=== PATIENT | female | born 1935 | race Caucasian/White ===

== ENCOUNTER → 2017-07-11 11:53 | Outpatient (CLI) | payer MEDICARE, OTHER, SELFPAY ==
[2017-07-11 12:37] LABS: Absolute Lymphocyte Count 1.38 X10^3/ul (0.83-4.51); Basophil# 0.02 X10^3/uL; Basophil% 0.5 % (0-1); Eosinophils% 2.5 % (0-5); Hematocrit 40.2 % (37-47); Hemoglobin 13.2 g/dl (12.0-15.0); Lymphocyte # 1.38 X10^3/ul (4.0); Lymphocyte % 34.8 % (19-41); Mean Corp Hgb Conc 32.8 g/gl (32-36); Mean Corpuscular Hgb 32.8 pg (27.0-32.0); Mean Corpuscular Volume 99.8 fL (81-99); Mean Platelet Vol. 11.5 fl (6.2-12.0); Monocyte# 0.44 X10^3/uL; Monocyte% 11.1 % (0-10); Neutrophil # 2.02 X10^3/uL (2.7-7.7); Neutrophil % 50.8 % (47-70); Platelet Count 236 K/mm3 (150-450); RBC Distribution Width CV 13.3 % (11.6-14.6); RBC Distribution Width SD 48.4 fl (35.1-43.9); Red Blood Count 4.03 M/mm3 (4.2-5.4)
[2017-07-11 12:38] LABS: POSITIVE COUNT NO; POSITIVE DIFFERENTIAL NO; POSITIVE MORPHOLOGY NO
[2017-07-11 13:00] LABS: ALB/GLOB Ratio 0.8 RATIO (0.9-2.4); AST(SGOT) 26 U/L (15-37); Alanine Aminotransfer ALT/SGPT 29 U/L (13-56); Albumin, Serum 3.3 g/dL (3.2-5.0); Alkaline Phosphatase 58 U/L (45-117); Anion Gap 7 (5-15); BUN 17 mg/dL (7-18); BUN/Creat Ratio 20.7 RATIO (10-20); Calcium,Total 9.1 mg/dL (8.5-10.1); Chloride 106 mmol/L (98-107); Creatinine, Serum 0.82 mg/dL (0.55-1.02); EST Glomerular Filtration Rate 71 mL/min (>60); Est Glom Filt Rate - Afr Amer 85 mL/min (>60); Glucose 78 mg/dL (74-106); Potassium 4.4 mmol/L (3.5-5.1); Protein, Total 7.3 g/dL (6.4-8.2); Sodium Level 141 mmol/L (136-145); Thyroid Stim Hormone (TSH) 2.87 uIU/mL (0.358-3.74)
[2017-07-11 13:10] LABS: Vitamin D,25 Hydroxy 71.4 ng/mL (29.95-100.01)
== END ==
PROVIDERS: Family Provider Family Medicine Geriatric Medicine; PCP Family Medicine Geriatric Medicine; Visit Provider Family Medicine Geriatric Medicine
DX: E55.9 Vitamin D deficiency, unspecified (principal); R53.83 Other fatigue
CPT/HCPCS: 36415; 80053; 82306; 84443; 85025

== ENCOUNTER 2017-07-13 16:02 | Emergency (ER) | payer MEDICARE, OTHER, SELFPAY ==
[2017-07-13 16:04] VITALS: BP 159/92; PULSE 93; RESP 16; TEMP 36.8; O2SAT 97; BMI 32.7
--- NOTE | 2017-07-13 16:43 | RAD_ITS ---
STUDY: X-RAY - LEFT FEMUR REASON FOR STUDY: Female, 82 years old. FALL TECHNIQUE: Radiological exam, femur, minimum 2 views COMPARISON: None. FINDINGS: Normal visualized femur. Normal visualized soft tissue structure. RAD/Femur Min 2 Views IMPRESSION: Normal x-ray examination of the femur. Electronically Signed: Bernard Lea MD at 17:43 EDT , Service support ,
--- NOTE | 2017-07-13 16:45 | ED.VISSUMM ---
- ER Visit Summary Date of Service: 07/13/17 Chief Complaint: Fall History of Present Illness: The patient is a 82 F who had a near fall today. Patient states that her foot slid on a wet floor. She states that 1 foot slid forward and one back. She did not fall completely to the floor. She is complaining of pain to the posterior left thigh. She was able to ambulate with 2 person assist. She did take 1 tab of ibuprofen prior to arrival. 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 She did not strike her head. She states her INR was 1.9 yesterday. Physical Examination: Vital signs are unremarkable. Patient sitting in a wheelchair. She is in no acute distress. Head neck examination reveals no sign of trauma. Heart is regular rate and rhythm. Lung sounds are clear. Abdomen is soft nontender. Lower external examination reveals mild tenderness of the posterior left calf. There is no ecchymosis at this time. She has strong distal pulses. She does have increased pain to the left posterior thigh when she extends her left knee. Test Results: Left femur x-rays are unremarkable. Emergency Department Course and Treatment: Patient's leg was placed in an Jaswant wrap. She is able to get up and ambulate with her walker and feels improved. She declined anything further for pain at this time. Treatment Plan: Patient's daughter has a walker that the patient can use at home. Disposition: Discharge Impression: Left thigh muscle strain This note was generated with [email or web address] dictation software. It may contain incorrect words, spelling, and punctuation that were not noted in review of the chart prior to signing ED Disposition - Plan for ED Patient: Chief Complaint: Fall Referrals: Edgar Crooks Chi, MD [Primary Care Provider] -
--- NOTE | 2017-07-13 17:47 | ED.RN ---
CLAUDIA WRAP APPLIED TO RT UPPER THIGH PER MD.
--- NOTE | 2017-07-13 17:52 | ED.DEP ---
ED Disposition - Plan for ED Patient: Disposition: Home or Assisted Living Chief Complaint: Fall Instructions: ED Strain Muscle Ext Referrals: Edgar Crooks Chi, MD [Primary Care Provider] - 1-2 Weeks
[2017-07-13 17:57] VITALS: BP 180/94; PULSE 77; RESP 16; O2SAT 100
== END 2017-07-13 17:58 | disposition home or self-care (01) ==
PROVIDERS: Emergency Provider Emergency Medicine; Family Provider Family Medicine Geriatric Medicine; PCP Family Medicine Geriatric Medicine
DX: S76.912A Strain of unspecified muscles, fascia and tendons at thigh level, left thigh, initial encounter (principal); W18.49XA Other slipping, tripping and stumbling without falling, initial encounter; Y93.9 Activity, unspecified; Y92.9 Unspecified place or not applicable; I25.10 Atherosclerotic heart disease of native coronary artery without angina pectoris; I35.0 Nonrheumatic aortic (valve) stenosis; Z86.718 Personal history of other venous thrombosis and embolism; Z86.39 Personal history of other endocrine, nutritional and metabolic disease; Z95.5 Presence of coronary angioplasty implant and graft; Z79.01 Long term (current) use of anticoagulants; Z79.82 Long term (current) use of aspirin; Z79.899 Other long term (current) drug therapy
CPT/HCPCS: 73552; 99282

== ENCOUNTER 2017-07-19 11:42 | Emergency (ER) | payer MEDICARE, OTHER, SELFPAY ==
[2017-07-19 11:43] VITALS: BP 146/85; PULSE 89; RESP 16; TEMP 36.6; O2SAT 100; BMI 32.0
--- NOTE | 2017-07-19 12:31 | NURSING ---
NO LW OR POA
--- NOTE | 2017-07-19 12:39 | VDLE_ITS ---
Reason For Study: LEG PAIN Procedure LEFT Exam performed portable in ED. GSV is normal. A preliminary report was called and/or faxed CFV is compressible, spontaneous, phasic, to ED. competent, and demonstrates normal augmentation. FV is compressible, spontaneous, phasic, competent and demonstrates normal augmentation. POP V is compressible, spontaneous, phasic, competent and demonstrates normal augmentation. T/P Trunk is compressible. PTV is compressible. LT PerV is compressible. Interpretation Summary Deep veins of the left lower extremity are patent and compressible segmentally. There is no evidence of left lower extremity deep vein thrombosis. Valvular competence appears intact within the proximal deep venous system on the left . The left greater saphenous vein appears patent and compressible segmentally. Ordering Physician: Michael Pendleton Referring Physician: SHAWNA COOK CHI Performed By: Kenzie Ledesma, KUSUM, RVT
[2017-07-19 13:21] LABS: Absolute Neutrophil Count 2.2 X10^3/uL (2.0-7.7); Basophil# 0.02 X10^3/uL; Basophil% 0.5 % (0-1); Eosinophil# 0.08 X10^3/uL; Hematocrit 33.3 % (37-47); Hemoglobin 10.8 g/dl (12.0-15.0); Lymphocyte % 33.1 % (19-41); Mean Corp Hgb Conc 32.4 g/gl (32-36); Mean Corpuscular Volume 98.5 fL (81-99); Mean Platelet Vol. 10.2 fl (6.2-12.0); Monocyte# 0.37 X10^3/uL; Monocyte% 9.4 % (0-10); Neutrophil # 2.15 X10^3/uL (2.7-7.7); Neutrophil % 54.7 % (47-70); Platelet Count 258 K/mm3 (150-450); RBC Distribution Width CV 13.4 % (11.6-14.6); RBC Distribution Width SD 48.1 fl (35.1-43.9); Red Blood Count 3.38 M/mm3 (4.2-5.4); White Blood Count 3.9 K/mm3 (4.4-11.0)
[2017-07-19 13:22] LABS: POSITIVE COUNT NO; POSITIVE DIFFERENTIAL NO; POSITIVE MORPHOLOGY NO
[2017-07-19 13:28] LABS: Anion Gap 8 (5-15); BUN 18 mg/dL (7-18); BUN/Creat Ratio 24.8 RATIO (10-20); Calcium,Total 8.9 mg/dL (8.5-10.1); Chloride 104 mmol/L (98-107); Creatinine, Serum 0.73 mg/dL (0.55-1.02); EST Glomerular Filtration Rate 82 mL/min (>60); Est Glom Filt Rate - Afr Amer 99 mL/min (>60); Glucose 87 mg/dL (74-106); Potassium 4.4 mmol/L (3.5-5.1); Sodium Level 139 mmol/L (136-145)
[2017-07-19 13:30] LABS: International Normalized Ratio 2.3; Prothrombin Time (Protime)PT. 25.5 SECONDS (11.7-14.9)
--- NOTE | 2017-07-19 14:30 | ED.DCSUM_ITS ---
- ER Visit Summary Date of Service: 07/19/17 Chief Complaint: Left leg pain History of Present Illness: The patient is a 82 F presents with left leg pain. She fell 5-6 days ago. She slipped. She was seen in the emergency department at that time. X-rays were negative. Since last night she has had some increased pain. Since the fall she has noticed increasing bruising to her left thigh and leg. She denies fever chest pain shortness of breath lightheadedness. Review of systems otherwise negative. She is concerned for possible DVT. She is anticoagulated. Physical Examination: Afebrile vitals are unremarkable heart rate 89 blood pressure 146/85 Heart regular rate and rhythm Lungs are clear Abdomen soft Patient has ecchymosis diffusely of the left leg including the thigh and proximal calf the compartments are soft and only mildly tender she has an easily palpable 2+ dorsalis pedis pulse with normal sensation and brisk capillary refill she does not have edema or soft tissue swelling Test Results: Laboratory studies notable for INR 2.3 hemoglobin is 10.8 which is decreased from 13 on prior labs. Venous duplex is negative for DVT. Emergency Department Course and Treatment: I explained to the patient my clinical suspicion for DVT is low given that she has a therapeutic INR but she remained concerned so we did obtain venous duplex which was negative. Her hemoglobin has decreased from 13 down to 10.8. However heart rate and blood pressure are normal. She only has mild tenderness. Her compartments are soft. I do not believe she is actively bleeding at this time. I spoke to Dr. Crooks her primary care physician to arrange for outpatient follow-up. He will see her tomorrow and follow-up on repeat laboratory studies. Patient was given specific signs and symptoms to monitor for, conditions under which to return to the emergency department. All questions answered bedside and patient agreeable to the plan. Patient discharged. Treatment Plan: [] Disposition: Discharge Impression: Left leg contusion Anemia This note was generated with [employer] dictation software. It may contain incorrect words, spelling, and punctuation that were not noted in review of the chart prior to signing ED Disposition - Plan for ED Patient: Chief Complaint: Fall Referrals: Edgar Crooks Chi, MD [Primary Care Provider] -
--- NOTE | 2017-07-19 14:35 | ED.DEP ---
ED Disposition - Plan for ED Patient: Chief Complaint: Fall Instructions: ED Contusion Lower Ext, ED Anemia Type Not Specified Referrals: Edgar Crooks Chi, MD [Primary Care Provider] - Additional Instructions: Call Dr. Crooks to be seen tomorrow.
[2017-07-19 14:45] VITALS: BP 148/85; PULSE 81; RESP 16; O2SAT 97
== END 2017-07-19 14:46 | disposition home or self-care (01) ==
PROVIDERS: Emergency Provider Emergency Medicine; Family Provider Family Medicine Geriatric Medicine; PCP Family Medicine Geriatric Medicine
DX: S80.12XA Contusion of left lower leg, initial encounter (principal); D64.9 Anemia, unspecified; W01.0XXA Fall on same level from slipping, tripping and stumbling without subsequent striking against object, initial encounter; Y93.9 Activity, unspecified; Y92.9 Unspecified place or not applicable; I25.10 Atherosclerotic heart disease of native coronary artery without angina pectoris; I10 Essential (primary) hypertension; Z95.5 Presence of coronary angioplasty implant and graft; Z79.01 Long term (current) use of anticoagulants; Z79.82 Long term (current) use of aspirin; Z79.899 Other long term (current) drug therapy
CPT/HCPCS: 80048; 85025; 85610; 93971; 99283; A4216

== ENCOUNTER → 2017-07-27 09:51 | Outpatient (CLI) | payer MEDICARE, OTHER, SELFPAY ==
[2017-07-27 12:41] LABS: Hematocrit 33.5 % (37-47); Hemoglobin 11.1 g/dl (12.0-15.0)
== END ==
PROVIDERS: Family Provider Family Medicine Geriatric Medicine; PCP Family Medicine Geriatric Medicine; Visit Provider Family Medicine Geriatric Medicine
DX: D64.9 Anemia, unspecified (principal)
CPT/HCPCS: 36415; 85014; 85018

== ENCOUNTER 2017-12-12 19:00 | Observation (INO) | payer MEDICARE, OTHER, SELFPAY ==
[2017-12-12 19:00] VITALS: BP 185/101; PULSE 85; RESP 16; TEMP 36.7; O2SAT 99; BMI 32.2
--- NOTE | 2017-12-12 19:21 | EKG12_ITS ---
Test Reason : CP Blood Pressure : / mmHG Vent. Rate : 087 BPM Atrial Rate : 087 BPM P-R Int : 176 ms QRS Dur : 084 ms QT Int : 366 ms P-R-T Axes : 052 034 039 degrees QTc Int : 440 ms Normal sinus rhythm Normal ECG Confirmed by ANGELA PAEZ, IVAN ([id number]), food expeditor MARTHA JOSHI ([id number]) on 12/15/2017 1:34:32 PM Referred By: TURNER Confirmed By:IVAN MILLER MD
--- NOTE | 2017-12-12 19:21 | ED.RN ---
RN CALLED FOR EKG, PULLED OLD EKGS FOR
--- NOTE | 2017-12-12 19:23 | RAD_ITS ---
STUDY: X-RAY CHEST REASON FOR EXAM: Female, 82 years old. CHEST PAIN TECHNIQUE: Single frontal view of the chest. COMPARISON: 2.617 FINDINGS: Chronic appearing increased interstitial lung markings. There is no demonstrated pleural abnormality. Normal heart size. Normal mediastinum and fermín. Normal visualized pulmonary arteries. There is atherosclerotic calcification of the aortic arch with tortuosity. There are diffuse degenerative changes of the visualized thoracic spine. There is degenerative osteoarthritis of the bilateral shoulders. There is no demonstrated abnormality of the visualized soft tissue structures of the upper abdomen. RAD/Chest 1 View (Portable) IMPRESSION: There are no acute findings. Electronically Signed: Bernard Lea MD at 19:52 EDT , Service support ,
[2017-12-12] MEDS: Aspirin 81 MG TAB.CHEW 324 MG PO (19:33)
[2017-12-12] MEDS: 0.9% Normal Saline 1,000 ML 150 ML IV (19:34)
[2017-12-12 20:00] LABS: Absolute Lymphocyte Count 1.26 X10^3/ul (0.83-4.51); Absolute Neutrophil Count 3.1 X10^3/uL (2.0-7.7); Basophil# 0.03 X10^3/uL; Basophil% 0.6 % (0-1); Eosinophil# 0.06 X10^3/uL; Eosinophils% 1.3 % (0-5); Hematocrit 38.2 % (37-47); Hemoglobin 12.5 g/dl (12.0-15.0); Lymphocyte # 1.26 X10^3/ul (4.0); Lymphocyte % 26.6 % (19-41); Mean Corp Hgb Conc 32.7 g/gl (32-36); Mean Corpuscular Hgb 31.3 pg (27.0-32.0); Mean Corpuscular Volume 95.5 fL (81-99); Mean Platelet Vol. 10.7 fl (6.2-12.0); Monocyte# 0.32 X10^3/uL; Monocyte% 6.8 % (0-10); Neutrophil # 3.05 X10^3/uL (2.7-7.7); Neutrophil % 64.5 % (47-70); POSITIVE COUNT NO; POSITIVE DIFFERENTIAL NO; POSITIVE MORPHOLOGY NO; Platelet Count 236 K/mm3 (150-450); RBC Distribution Width CV 13.6 % (11.6-14.6); RBC Distribution Width SD 47.6 fl (35.1-43.9); White Blood Count 4.7 K/mm3 (4.4-11.0)
[2017-12-12 20:15] LABS: Anion Gap 7 (5-15); BUN 19 mg/dL (7-18); BUN/Creat Ratio 24.1 RATIO (10-20); Calcium,Total 9.2 mg/dL (8.5-10.1); Chloride 106 mmol/L (98-107); Creatinine, Serum 0.79 mg/dL (0.55-1.02); EST Glomerular Filtration Rate 74 mL/min (>60); Est Glom Filt Rate - Afr Amer 90 mL/min (>60); Glucose 108 mg/dL (74-106); Potassium 3.8 mmol/L (3.5-5.1); Sodium Level 139 mmol/L (136-145)
[2017-12-12 20:22] VITALS: BP 189/91; PULSE 81; RESP 16; O2SAT 97
--- NOTE | 2017-12-12 20:57 | ED.DCSUM_ITS ---
- ER Visit Summary Date of Service: 12/12/17 Chief Complaint: [Chest pain] History of Present Illness: The patient is a 82 F [presents to the emergency department with complaint of discomfort in her chest that started around 4 PM. Patient states that she was baking bread when she developed discomfort that is retrosternal. Patient also checked her blood pressure at that time because she is not feeling well and noted that was quite elevated compared to normal and her systolic was over 177. Patient took 3 nitros at home but did not get much pain relief. Patient also took some aspirin. Patient did feel short of breath with it. She denied any nausea or vomiting. Patient had similar pains in the past when she required a stent.] Patient does state that at times she feels like if she were to belch it may relieve her symptoms. Physical Examination: [HEENT-PERRLA, EOMI. Cranial nerves II through XII grossly intact. TMs clear. Mucous membranes moist. No adenopathy. Cardiovascular-regular rate and rhythm without murmur or ectopy Lungs-clear to auscultation, chest wall stable without crepitus or subcu emphysema Abdomen-normoactive bowel sounds, soft, nontender, no rebound or rigidity, no peritoneal signs. Extremities-intact ?4, normal range of motion, normal pulses, atraumatic] Test Results: [EKG obtained arrival shows sinus rhythm with a ventricular rate of 87 bpm with no acute I segment changes. CBC with differential is normal. Chemistries unremarkable. Troponin was less than 0.015. Chest x-ray was normal.] Emergency Department Course and Treatment: [Patient received aspirin in the [facility] department.] Treatment Plan: [Admit for further workup and evaluation] Disposition: [Admit] Impression: [Chest pain-rule out acute coronary syndrome.] This note was generated with [employer] dictation software. It may contain incorrect words, spelling, and punctuation that were not noted in review of the chart prior to signing ED Disposition - Plan for ED Patient: Chief Complaint: Chest Other Referrals: Edgar Crooks Chi, MD [Primary Care Provider] -
--- NOTE | 2017-12-12 21:05 | PCM.HP.STD ---
Problem List (1) Aortic valve stenosis Status: Chronic Qualifiers: (2) Hyperlipidemia Status: Chronic Qualifiers: (3) Hypertension Status: Chronic Qualifiers: (4) History of coronary artery stent placement Status: Chronic Comment: PTCA & stenting of RCA June 2001 (5) CAD (coronary artery disease) Status: Chronic (6) Chest pain Status: Acute Qualifiers: Chest pain type: unspecified Qualified Code(s): R07.9 - Chest pain, unspecified History of Present Illness Date of Admission: 12/12/17 Chief Complaint: chest pain The patient is a 82 year old female with a significant past medical history of coronary artery disease who has a stent presents to the ER with chest pain. She was baking bread at the time of onset earlier today. She had two doses of nitroglycerin and two doses of aspirin. She continue to describe feeling a heaviness that is substernal and non radiating. She is hypertensive as well. Initial troponin is negative and EKG is negative for acute ST changes. She will be admitted for further cardiac workup. 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) Hypertension (Chronic) History of coronary artery stent placement (Chronic) PTCA & stenting of RCA June 2001 CAD (coronary artery disease) (Chronic) Medical History: Medical History (Last Updated 06/01/17 @ 09:29 by ANDREA Wills) Aortic valve stenosis (Chronic) I35.0 Hyperlipidemia (Chronic) E78.5 Atherosclerotic heart disease of [place] coronary artery without angina pectoris (Chronic) I25.10 Hypertension (Chronic) I10 Allergies azithromycin Allergy (Severe, Verified 12/12/17 19:02) Other per pt impairs kidney function and she was unable to walk for 1 week pravastatin Adverse Reaction (Severe, Verified 12/12/17 19:02) mylagias Home Medications: Ambulatory Orders Medication Instructions Recorded Warfarin [Coumadin] 4 mg PO DAILY 06/12/13 Aspirin [Aspirin, Baby] 81 mg PO DAILY 08/20/14 nitroglycerin 0.4 mg sublingual 0.4 mg SUBLINGUAL Q5M PRN 05/30/17 tablet lisinopril 10 mg tablet 10 mg PO BID #60 tab 09/19/17 Surgical History: Surgical History (Last Updated 06/01/17 @ 09:29 by ANDREA Wills) History of coronary artery stent placement (Chronic) Z95.5 PTCA & stenting of RCA June 2001 Surgical History: - - stent Psychiatric History: No pertinent psych hx Smoking Status: Never smoker - *Family History Maternal Family History: Family History (Last Updated 05/30/17 @ 10:11 by Nicole Vaughan) Other CVA (cerebral vascular accident) History Items: No pertinent history Review of Systems Constitutional: Denies: Chills, Fever, Weight Change HEENT: Denies: Head Aches, Sinus Congestion, Sinus Drainage Cardiovascular: Reports: Chest Pain, Chest Pressure, Heaviness. Denies: Palpitations Respiratory: Denies: Cough, Shortness of breath at rest, Sputum production Gastrointestinal: Denies: Abdominal Pain, Nausea, Vomiting Genitourinary: Denies: Dysuria Musculoskeletal: Denies: Joint Pain, Joint Tenderness Skin: Denies: Rash, Wounds Neurological: Denies: Numbness, Tingling, Focal weakness Psychiatric: Denies: Anxiety, Depression, Homicidal Ideations, Suicidal Ideations Hematologic/ Lymphatic: Denies: Easy Bruising, Easy Bleeding VTE Information - Inpt Only VTE Present on Admission: No VTE Mechan Device Prophylaxis: None VTE Pharm Prophylaxis ordered?: Yes Patient Problems: Active and Suspected Problems (Last Updated 06/01/17 @ 09:29 by ANDREA Wills) Chest pain (Acute) - Physical Exam General: Alert, Oriented x3, Cooperative HEENT: Atraumatic, Normocephalic Neck: Supple Lungs: Clear to auscultation, Normal air movement, No rhonchi, No wheeze, No rales Cardiovascular: Regular rate, Normal S1, Normal S2, Murmur - 3/6 ESMER Abdomen: Bowel Sounds Present, Soft, Non Tender Extremities: No edema, Capillary Refill Less than 3 Seconds Skin: No rashes Musculoskeletal: No Tenderness to Palpation of Joints or Extremities Neurological: Neuro grossly intact Psych/Mental Status: Normal Affect, Appropriate Vital Signs Temp Pulse Resp BP Pulse Ox 98.1 F 81 16 189/91 H 97 12/12/17 19:00 12/12/17 20:22 12/12/17 20:22 12/12/17 20:22 12/12/17 20:22 Oxygen Flow Rate (L/min) 2 Oxygen Delivery Method Nasal Cannula Weight: 176 lb 4.8 oz Body Mass Index (BMI) 32.2 Laboratory Tests Past 24 Hrs 12/12/17 12/12/17 19:32 19:32 WBC 4.7 RBC 4.00 L Hgb 12.5 Hct 38.2 MCV 95.5 MCH 31.3 MCHC 32.7 RDW 13.6 RDW Differential 47.6 H Plt Count 236 MPV 10.7 Immature Gran % (Auto) 0.200 Neut % (Auto) 64.5 Lymph % (Auto) 26.6 [place] % (Auto) 6.8 Eos % (Auto) 1.3 Baso % (Auto) 0.6 Absolute Neuts (auto) 3.1 Absolute Lymphs (auto) 1.26 Total Counted Not Reportable Sodium 139 Potassium 3.8 Chloride 106 Carbon Dioxide 26.0 Anion Gap 7 BUN 19 H Creatinine 0.79 Estim Creat Clear Calc 34.30 Est GFR (MDRD) Af Amer 90 Est GFR (MDRD) Non-Af 74 BUN/Creatinine Ratio 24.1 H Glucose 108 H Calcium 9.2 Troponin I < 0.015 Assessment/Plan All Active Problems (Last Updated 06/01/17 @ 09:29 by ANDREA Wills) Chest pain (Acute) Chronic Problems (Last Updated 06/01/17 @ 09:29 by ANDREA Wills) Aortic valve stenosis (Chronic) Hyperlipidemia (Chronic) Atherosclerotic heart disease of [place] coronary artery without angina pectoris (Chronic) 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
--- NOTE | 2017-12-12 21:10 | HP.PCM_ITS ---
Problem List (1) Aortic valve stenosis Status: Chronic Qualifiers: (2) Hyperlipidemia Status: Chronic Qualifiers: (3) Hypertension Status: Chronic Qualifiers: (4) History of coronary artery stent placement Status: Chronic Comment: PTCA & stenting of RCA June 2001 (5) CAD (coronary artery disease) Status: Chronic (6) Chest pain Status: Acute Qualifiers: Chest pain type: unspecified Qualified Code(s): R07.9 - Chest pain, unspecified History of Present Illness Date of Admission: 12/12/17 Chief Complaint: chest pain The patient is a 82 year old female with a significant past medical history of coronary artery disease who has a stent presents to the ER with chest pain. She was baking bread at the time of onset earlier today. She had two doses of nitroglycerin and two doses of aspirin. She continue to describe feeling a heaviness that is substernal and non radiating. She is hypertensive as well. Initial troponin is negative and EKG is negative for acute ST changes. She will be admitted for further cardiac workup. Past Medical History Past Medical History (Chronic Problems): Chronic Problems (Last Updated 06/01/17 @ 09:29 by ANDREA Wills) Aortic valve stenosis (Chronic) Hyperlipidemia (Chronic) Atherosclerotic heart disease of [place] coronary artery without angina pectoris (Chronic) assisted use of drug (Chronic) Hypertension (Chronic) History of coronary artery stent placement (Chronic) PTCA & stenting of RCA June 2001 CAD (coronary artery disease) (Chronic) Medical History: Medical History (Last Updated 06/01/17 @ 09:29 by ANDREA Wills) Aortic valve stenosis (Chronic) I35.0 Hyperlipidemia (Chronic) E78.5 Atherosclerotic heart disease of [place] coronary artery without angina pectoris (Chronic) I25.10 Hypertension (Chronic) I10 Allergies azithromycin Allergy (Severe, Verified 12/12/17 19:02) Other per pt impairs kidney function and she was unable to walk for 1 week pravastatin Adverse Reaction (Severe, Verified 12/12/17 19:02) mylagias Home Medications: Ambulatory Orders Medication Instructions Recorded Warfarin [Coumadin] 4 mg PO DAILY 06/12/13 Aspirin [Aspirin, Baby] 81 mg PO DAILY 08/20/14 nitroglycerin 0.4 mg sublingual 0.4 mg SUBLINGUAL Q5M PRN 05/30/17 tablet lisinopril 10 mg tablet 10 mg PO BID #60 tab 09/19/17 Surgical History: Surgical History (Last Updated 06/01/17 @ 09:29 by ANDREA Wills) History of coronary artery stent placement (Chronic) Z95.5 PTCA & stenting of RCA June 2001 Surgical History: - - stent Psychiatric History: No pertinent psych hx Smoking Status: Never smoker - *Family History Maternal Family History: Family History (Last Updated 05/30/17 @ 10:11 by Nicole Vaughan) Other CVA (cerebral vascular accident) History Items: No pertinent history Review of Systems Constitutional: Denies: Chills, Fever, Weight Change HEENT: Denies: Head Aches, Sinus Congestion, Sinus Drainage Cardiovascular: Reports: Chest Pain, Chest Pressure, Heaviness. Denies: Palpitations Respiratory: Denies: Cough, Shortness of breath at rest, Sputum production Gastrointestinal: Denies: Abdominal Pain, Nausea, Vomiting Genitourinary: Denies: Dysuria Musculoskeletal: Denies: Joint Pain, Joint Tenderness Skin: Denies: Rash, Wounds Neurological: Denies: Numbness, Tingling, Focal weakness Psychiatric: Denies: Anxiety, Depression, Homicidal Ideations, Suicidal Ideations Hematologic/ Lymphatic: Denies: Easy Bruising, Easy Bleeding VTE Information - Inpt Only VTE Present on Admission: No VTE Mechan Device Prophylaxis: None VTE Pharm Prophylaxis ordered?: Yes Patient Problems: Active and Suspected Problems (Last Updated 06/01/17 @ 09:29 by ANDREA Wills) Chest pain (Acute) - Physical Exam General: Alert, Oriented x3, Cooperative HEENT: Atraumatic, Normocephalic Neck: Supple Lungs: Clear to auscultation, Normal air movement, No rhonchi, No wheeze, No rales Cardiovascular: Regular rate, Normal S1, Normal S2, Murmur - 3/6 ESMER Abdomen: Bowel Sounds Present, Soft, Non Tender Extremities: No edema, Capillary Refill Less than 3 Seconds Skin: No rashes Musculoskeletal: No Tenderness to Palpation of Joints or Extremities Neurological: Neuro grossly intact Psych/Mental Status: Normal Affect, Appropriate Vital Signs Temp Pulse Resp BP Pulse Ox 98.1 F 81 16 189/91 H 97 12/12/17 19:00 12/12/17 20:22 12/12/17 20:22 12/12/17 20:22 12/12/17 20:22 Oxygen Flow Rate (L/min) 2 Oxygen Delivery Method Nasal Cannula Weight: 176 lb 4.8 oz Body Mass Index (BMI) 32.2 Laboratory Tests Past 24 Hrs 12/12/17 12/12/17 19:32 19:32 WBC 4.7 RBC 4.00 L Hgb 12.5 Hct 38.2 MCV 95.5 MCH 31.3 MCHC 32.7 RDW 13.6 RDW Differential 47.6 H Plt Count 236 MPV 10.7 Immature Gran % (Auto) 0.200 Neut % (Auto) 64.5 Lymph % (Auto) 26.6 [place] % (Auto) 6.8 Eos % (Auto) 1.3 Baso % (Auto) 0.6 Absolute Neuts (auto) 3.1 Absolute Lymphs (auto) 1.26 Total Counted Not Reportable Sodium 139 Potassium 3.8 Chloride 106 Carbon Dioxide 26.0 Anion Gap 7 BUN 19 H Creatinine 0.79 Estim Creat Clear Calc 34.30 Est GFR (MDRD) Af Amer 90 Est GFR (MDRD) Non-Af 74 BUN/Creatinine Ratio 24.1 H Glucose 108 H Calcium 9.2 Troponin I < 0.015 Assessment/Plan All Active Problems (Last Updated 06/01/17 @ 09:29 by ANDREA Wills) Chest pain (Acute) Chronic Problems (Last Updated 06/01/17 @ 09:29 by ANDREA Wills) Aortic valve stenosis (Chronic) Hyperlipidemia (Chronic) Atherosclerotic heart disease of [place] coronary artery without angina pectoris (Chronic) 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
[2017-12-12 21:36] VITALS: BMI 32.5; BMI 32.6
[2017-12-12 21:38] VITALS: BP 180/98; PULSE 73; RESP 18; TEMP 36.8; O2SAT 96
--- NOTE | 2017-12-12 21:50 | EKG12_ITS ---
Test Reason : Blood Pressure : / mmHG Vent. Rate : 078 BPM Atrial Rate : 078 BPM P-R Int : 176 ms QRS Dur : 088 ms QT Int : 390 ms P-R-T Axes : 056 034 036 degrees QTc Int : 444 ms Sinus rhythm with Premature atrial complexes Otherwise normal ECG Confirmed by ANGELA PAEZ, IVAN ([id number]), news assignment editor MARTHA JOSHI ([id number] on 12/15/2017 2:26:32 PM Referred By: Confirmed By:IVAN MILLER MD
[2017-12-12 21:56] VITALS: PULSE 78
[2017-12-12] MEDS: Labetalol 20 MG/4 ML Vial IV (22:33)
[2017-12-12] MEDS: 0.9% NaCl Peripheral Flush Adult/Peds IV (22:34)
[2017-12-12 23:04] VITALS: PULSE 81
[2017-12-13] VITALS (7 sets, daily range): BP systolic 140–179; BP diastolic 76–93; PULSE 68–79; RESP 12–18; TEMP 36.8–36.9; O2SAT 95–98
[2017-12-13] MEDS: Aspirin 81 MG TAB.CHEW PO (05:39)
[2017-12-13] MEDS: Lisinopril 10 MG Tablet PO (05:39)
--- NOTE | 2017-12-13 05:55 | EKG12_ITS ---
Test Reason : Blood Pressure : / mmHG Vent. Rate : 083 BPM Atrial Rate : 083 BPM P-R Int : 192 ms QRS Dur : 088 ms QT Int : 400 ms P-R-T Axes : 050 031 029 degrees QTc Int : 470 ms Sinus rhythm with Premature supraventricular complexes Otherwise normal ECG Confirmed by ANGELA PAEZ, IVAN ([id number]), web editor MARTHA JOSHI ([id number] on 12/15/2017 2:17:55 PM Referred By: Confirmed By:IVAN MILLER MD
--- NOTE | 2017-12-13 05:55 | ECHOD_ITS ---
Reason For Study: MURMUR Procedure This was a 2D Doppler, Color Flow transthoracic echocardiogram. The exam was of adequate technical quality. Exam performed portable in patient room. Left Ventricle Normal LV size. Mild concentric left ventricular hypertrophy. Sigmoid septum. Left ventricular systolic function is normal. The estimated ejection fraction is 65 %. There is evidence of diastolic dysfunction. No regional wall motion abnormalities noted. Right Ventricle Normal RV size. Normal systolic function. Atria The left atrium is mildly enlarged. Normal right atrium. No doppler evidence for ASD. Mitral Valve There is moderate mitral annular calcification. Extension of the mitral annular calcification onto the posterior mitral valve leaflet. Mild (1+) mitral valve insufficiency. Tricuspid Valve Normal tricuspid valve. Mild tricuspid valve insufficiency. Right ventricular systolic pressure estimated to be 26 mmHg. Aortic Valve Trisinus/trileaflet aortic valve. Mild diffuse aortic valve thickening. Moderate focal aortic valve thickening. Mild aortic stenosis. Trivial aortic valve insufficiency. Pulmonic Valve The pulmonic valve is not well visualized. Mild (1+) pulmonic valve insufficiency. Great Vessels Normal sized aortic root. Calcified aortic root. Pericardium/Pleural No pericardial effusion. MMode/2D Measurements & Calculations LVIDd: 3.4 cm IVSd: 1.4 cm LVOT diam: 2.0 cm LVIDs: 2.7 cm LVPWd: 1.3 cm LVOT area: 3.0 cm2 RVDd: 3.9 cm FS: 20.4 % Ao root diam: 3.1 cm LAV(MOD-bp): 68.4 ml Aortic Valve Planimetry: 1.1 cm2 ACS: 1.1 cm LAV(MOD-bp) Indexed: 38.2 ml/m2 LA dimension: 4.2 cm LAV(MOD-sp2): 65.1 ml LAV(MOD-sp4): 67.4 ml LA A4 area: 21.6 cm2 RA A4 area: 17.1 cm2 Time Measurements MV dec time: 0.24 sec Doppler Measurements & Calculations MV E max isauro: 91.7 cm/sec Lat Peak E' Isauro: 5.0 cm/sec Med Peak E' Isauro: 5.5 cm/sec MV A max isauro: 136.4 cm/sec E/E' lat: 18.2 E/E' med: 16.7 MV E/A: 0.67 MV V2 max: 151.2 cm/sec MV P1/2t max isauro: 105.0 cm/sec Ao V2 max: 263.7 cm/sec MV max P.1 mmHg MV P1/2t: 94.6 msec Ao max P.8 mmHg MV V2 mean: 85.5 cm/sec MV dec slope: 325.1 cm/sec2 Ao V2 mean: 163.9 cm/sec MV mean P.4 mmHg MVA(P1/2t): 2.3 cm2 Ao mean P.0 mmHg MV V2 VTI: 40.4 cm Ao V2 VTI: 59.2 cm MVA(VTI): 2.0 cm2 GARRET(I,D): 1.4 cm2 GARRET(V,D): 1.2 cm2 LV V1 max: 102.3 cm/sec SV(LVOT): 80.5 ml PA V2 max: 76.1 cm/sec LV V1 max P.2 mmHg LV V1 mean P.6 mmHg LV V1 mean: 77.0 cm/sec LV V1 VTI: 26.8 cm PI dec slope: 200.6 cm/sec2 TR max isauro: 237.7 cm/sec TR max P.6 mmHg Interpretation Summary Left ventricular systolic function is normal. The estimated ejection fraction is 65 %. Mild concentric left ventricular hypertrophy. Sigmoid septum. The left atrium is mildly enlarged. There is moderate mitral annular calcification. Extension of the mitral annular calcification onto the posterior mitral valve leaflet. Mild (1+) mitral valve insufficiency. Mild tricuspid valve insufficiency. Mild aortic stenosis. Trivial aortic valve insufficiency. Mild (1+) pulmonic valve insufficiency. Calcified aortic root. Right ventricular systolic pressure estimated to be 26 mmHg. There is evidence of diastolic dysfunction. Ordering Physician: Douglas Covington Referring Physician: Edgar Crooks Chi Performed By: Rizwan Boswell RCS
[2017-12-13] MEDS: Labetalol 20 MG/4 ML Vial IV (06:15)
[2017-12-13] MEDS: 0.9% NaCl Peripheral Flush Adult/Peds IV (06:16)
[2017-12-13 06:20] LABS: Hematocrit 37.5 % (37-47); Hemoglobin 12.4 g/dl (12.0-15.0); Mean Corp Hgb Conc 33.1 g/gl (32-36); Mean Corpuscular Hgb 32.1 pg (27.0-32.0); Mean Corpuscular Volume 97.2 fL (81-99); Mean Platelet Vol. 11.3 fl (6.2-12.0); Platelet Count 220 K/mm3 (150-450); RBC Distribution Width CV 13.7 % (11.6-14.6); RBC Distribution Width SD 47.2 fl (35.1-43.9); Red Blood Count 3.86 M/mm3 (4.2-5.4); White Blood Count 4.3 K/mm3 (4.4-11.0)
[2017-12-13 06:22] LABS: International Normalized Ratio 1.9; Prothrombin Time (Protime)PT. 22.1 SECONDS (11.7-14.9)
[2017-12-13 06:23] LABS: Partial Thromboplast Time 37.3 Seconds (24.1-36.2)
[2017-12-13 06:37] LABS: Scan Indicated on CBC? Y/N NO
[2017-12-13 06:43] LABS: ALB/GLOB Ratio 0.9 RATIO (0.9-2.4); AST(SGOT) 25 U/L (15-37); Alanine Aminotransfer ALT/SGPT 23 U/L (13-56); Albumin, Serum 3.2 g/dL (3.2-5.0); Alkaline Phosphatase 55 U/L (45-117); Anion Gap 8 (5-15); BUN 15 mg/dL (7-18); BUN/Creat Ratio 21.2 RATIO (10-20); Calcium,Total 8.9 mg/dL (8.5-10.1); Chloride 107 mmol/L (98-107); Cholesterol 302 mg/dL (200); Creatinine, Serum 0.71 mg/dL (0.55-1.02); EST Glomerular Filtration Rate 84 mL/min (>60); Est Glom Filt Rate - Afr Amer 102 mL/min (>60); Estimated Creatinine Clearance 32.73 ml/min; Globulin 3.6 g/dL (2.2-4.2); Glucose 87 mg/dL (74-106); High Density Lipoprotein 56 mg/dL; Magnesium 1.9 mg/dL (1.6-2.6); Potassium 3.6 mmol/L (3.5-5.1); Protein, Total 6.8 g/dL (6.4-8.2); Sodium Level 140 mmol/L (136-145); Triglycerides 170 mg/dL; Very Low Density Lipoprotein 34 mg/dL (5-40)
--- NOTE | 2017-12-13 13:21 | STRESSREP_ITS ---
Stress Test Report Date: 11/24/2017 Procedure: Pharmacologic stress nuclear imaging study Indications: Chest pain Consent: Per the patient Procedure: The patient underwent pharmacologic (Regadenoson) evaluation with a peak heart rate of 95 beats per minute (68 predicted maximal heart rate) and a peak blood pressure of 184/94 mmHg. The baseline ECG demonstrated normal sinus rhythm. The peak pharmacologic ECG demonstrated no obvious ECG changes. There was a rare PAC pretest. There was no complaint of chest discomfort during pharmacologic infusion or recovery. The examination was discontinued secondary to completion of protocol. Impression: 1. Pharmacologic (Regadenoson) evaluation 2. Peak pharmacologic ECG with no obvious ECG changes. 3. There was a rare PAC pretest. 4. Nuclear images pending Myocardial perfusion imaging study: Technique: The patient was injected with 11.5 millicuries of technetium 99m Cardiolite and subsequently rest SPECT Cardiolite nuclear imaging was obtained in the horizontal long, vertical long, and short axis views. The patient underwent pharmacologic (Regadenoson) evaluation with a peak heart rate of 95 beats per minute (68 % percent predicted maximal heart rate) and a peak blood pressure of 184/94 mmHg. The patient was injected with 33.6 millicuries of technetium 99m Cardiolite and subsequently stress SPECT Cardiolite nuclear imaging was obtained in the horizontal long, vertical long, and short axis views. A gated Cardiolite study at peak stress was obtained. Interpretation: Rest and stress SPECT Cardiolite nuclear imaging status post realignment, normalization, and attenuation correction demonstrate relative uniform tracer uptake and myocardial perfusion appearing within normal limits. There is end systolic thickening and brightening. The gated Cardiolite study demonstrates myocardial thickening and inward wall motion. The reported LVEF is 72 %. Impression: 1. Rest and stress SPECT Cardiolite nuclear imaging demonstrate relative uniform tracer uptake and myocardial perfusion appearing within normal limits. 2. The gated Cardiolite study reports an LVEF of 72 %. This note was generated with PubGameation software. It may contain incorrect words, spelling, and punctuation that were not noted in checking the note before signing.
--- NOTE | 2017-12-13 13:43 | DCINST_ITS ---
- Discharge Diagnoses Current Active Problems: Current Active and Chronic Problems (Last Updated 06/01/17 @ 09:29 by ANDREA Wills) Chest pain (Acute) You will use the following diet at home:: No restrictions Instructions: ED Chest Pain NonCardiac Allergies/Adverse Reactions: Allergies azithromycin Allergy (Severe, Verified 12/12/17 19:02) Other per pt impairs kidney function and she was unable to walk for 1 week pravastatin Adverse Reaction (Severe, Verified 12/12/17 19:02) mylagias Medications to take at Discharge Warfarin [Coumadin] 4 mg PO DAILY 06/12/13 Aspirin [Aspirin, Baby] 81 mg PO DAILY 08/20/14 nitroglycerin 0.4 mg sublingual tablet 0.4 mg SUBLINGUAL Q5M PRN 05/30/17 lisinopril 10 mg tablet 10 mg PO BID #60 tab 09/19/17 Cholecalciferol (Vitamin D3) [Vitamin D3] 5,000 unit PO DAILY 12/12/17 Cinnamon Bark [Cinnamon] 500 mg PO BID 12/12/17 Ubidecarenone [Co Q-10] 200 mg PO DAILY 12/12/17 Amlodipine [Norvasc] 5 mg PO DAILY #60 tablet 12/13/17 The following prescriptions were given: Amlodipine [Norvasc] 5 mg PO DAILY #60 tablet Primary Care Physician: Edgar Crooks Chi, MD [Primary Care Provider] - Please follow up with your Primary Care Physician in: [place] 5-7 DAYS Test Results: Test results from this visit will be discussed in further detail at your follow- up appointment, if applicable. Proposed Discharge Date: 12/13/17
--- NOTE | 2017-12-13 13:43 | DS.PCM_ITS ---
Discharge Date and Diagnosis - Problem List Patient Problems: Active and Suspected Problems (Last Updated 06/01/17 @ 09:29 by ANDREA Wills) Chest pain (Acute) Date of Admission: 12/12/17 Date of Discharge: 12/13/17 - Primary Discharge Diagnosis Active and Suspected Problems (Last Updated 06/01/17 @ 09:29 by ANDREA Wills) Chest pain (Acute) - Secondary Discharge Diagnosis Chronic Problems (Last Updated 06/01/17 @ 09:29 by ANDREA Wills) Aortic valve stenosis (Chronic) Hyperlipidemia (Chronic) Atherosclerotic heart disease of [place] coronary artery without angina pectoris (Chronic) half-way use of drug (Chronic) Hypertension (Chronic) History of coronary artery stent placement (Chronic) PTCA & stenting of RCA June 2001 CAD (coronary artery disease) (Chronic) Hospital Course and Treatment Imaging Results: 12/13/17 05:55 Echo Complete [ECHO] AM (NON MEDS) Nuclear Stress Test - Chemical [NM] Routine Operations: None Summary of Care Provided: The patient is a 82 year old F multiple comorbidities who presented with chest discomfort. Patient was found to have markedly elevated blood pressure 1. Patient was placed in a monitored bed did rule out [place] with serial cardiac subsequently underwent a nuclear stress test which is negative for stress- induced ischemia 2. CAD with previous stent placement involving her RCA in June 2001 3. Acute hypertensive crisis did continue with patient home medications amlodipine was added to her regimen prior to discharge 4. Aortic stenosis echo was ordered for evaluation 5. History of previous DVT patient is on systemic anticoagulation with Coumadin with therapeutic INR on admission 6. Obesity with BMI of 32 weight loss advised Discharge Diet: Low fat/ Low Cholesterol Home Medications: Medications to take at Discharge Warfarin [Coumadin] 4 mg PO DAILY 06/12/13 Aspirin [Aspirin, Baby] 81 mg PO DAILY 08/20/14 lisinopril 10 mg tablet 10 mg PO BID #60 tab 09/19/17 Cholecalciferol (Vitamin D3) [Vitamin D3] 5,000 unit PO DAILY 12/12/17 Cinnamon Bark [Cinnamon] 500 mg PO BID 12/12/17 Ubidecarenone [Co Q-10] 200 mg PO DAILY 12/12/17 Amlodipine [Norvasc] 5 mg PO DAILY #60 tablet 12/13/17 Nitroglycerin 0.4 mg SUBLINGUAL Q5M PRN #30 tab.subl 12/13/17 Following Prescrptions Were Given to Patient: Amlodipine [Norvasc] 5 mg PO DAILY #60 tablet Nitroglycerin 0.4 mg SUBLINGUAL Q5M PRN #30 tab.subl PRN Reason: ANGINA Primary Care Physician: Edgar Crooks Chi, MD [Primary Care Provider] - Please follow up with your Primary Care Physician in: [place] 5-7 DAYS Patient Instructions: ED Chest Pain NonCardiac Disposition: Home Minutes spent on discharge:: 35 Patient Condition:: Stable Medical Necessity - Tobacco Use Smoking Status: Never smoker Meaningful Use Info Meaningful Use Diagnoses (Choose all that apply): None applicable Code Visit OBSV E&M: 09034 Observation care discharge - Physical Exam General: Oriented x3, No apparent distress Neck: Supple Lungs: Clear to auscultation Cardiovascular: Regular rate, Regular Rhythm Neurological: Neuro grossly intact Psych/Mental Status: Normal Affect Vital Signs Temp Pulse Resp BP Pulse Ox 98.2 F 74 12 144/82 H 98 12/13/17 08:57 12/13/17 12:45 12/13/17 08:57 12/13/17 12:45 12/13/17 08:57 Oxygen Flow Rate (L/min) 2 Oxygen Delivery Method Room Air Weight: 80.3 kg Body Mass Index (BMI) 32.5 Intake and Output for Last 24 Hours 12/11/17 12/12/17 12/13/17 23:59 23:59 23:59 Intake Total 260 / 260 560 / 560 Balance 260 / 260 560 / 560 Laboratory Tests Past 24 Hrs 12/12/17 12/12/17 12/12/17 19:32 19:32 23:06 WBC 4.7 RBC 4.00 L Hgb 12.5 Hct 38.2 MCV 95.5 MCH 31.3 MCHC 32.7 RDW 13.6 RDW Differential 47.6 H Plt Count 236 MPV 10.7 Immature Gran % (Auto) 0.200 Neut % (Auto) 64.5 Lymph % (Auto) 26.6 [place] % (Auto) 6.8 Eos % (Auto) 1.3 Baso % (Auto) 0.6 Absolute Neuts (auto) 3.1 Absolute Lymphs (auto) 1.26 Total Counted Not Reportable PT INR APTT Sodium 139 Potassium 3.8 Chloride 106 Carbon Dioxide 26.0 Anion Gap 7 BUN 19 H Creatinine 0.79 Estim Creat Clear Calc 34.30 Est GFR (MDRD) Af Amer 90 Est GFR (MDRD) Non-Af 74 BUN/Creatinine Ratio 24.1 H Glucose 108 H Calcium 9.2 Magnesium Total Bilirubin AST ALT Alkaline Phosphatase Troponin I < 0.015 < 0.015 Total Protein Albumin Globulin Albumin/Globulin Ratio Triglycerides Cholesterol LDL Cholesterol VLDL Cholesterol HDL Cholesterol 12/13/17 12/13/17 12/13/17 01:48 05:35 05:35 WBC 4.3 L RBC 3.86 L Hgb 12.4 Hct 37.5 MCV 97.2 MCH 32.1 H MCHC 33.1 RDW 13.7 RDW Differential 47.2 H Plt Count 220 MPV 11.3 Immature Gran % (Auto) Neut % (Auto) Lymph % (Auto) [place] % (Auto) Eos % (Auto) Baso % (Auto) Absolute Neuts (auto) Absolute Lymphs (auto) Total Counted PT INR APTT Sodium 140 Potassium 3.6 Chloride 107 Carbon Dioxide 25.0 Anion Gap 8 BUN 15 Creatinine 0.71 Estim Creat Clear Calc 32.73 Est GFR (MDRD) Af Amer 102 Est GFR (MDRD) Non-Af 84 BUN/Creatinine Ratio 21.2 H Glucose 87 Calcium 8.9 Magnesium 1.9 Total Bilirubin 0.40 AST 25 ALT 23 Alkaline Phosphatase 55 Troponin I < 0.015 Total Protein 6.8 Albumin 3.2 Globulin 3.6 Albumin/Globulin Ratio 0.9 Triglycerides 170 Cholesterol 302 H LDL Cholesterol 212 H VLDL Cholesterol 34 HDL Cholesterol 56 12/13/17 05:35 WBC RBC Hgb Hct MCV MCH MCHC RDW RDW Differential Plt Count MPV Immature Gran % (Auto) Neut % (Auto) Lymph % (Auto) [place] % (Auto) Eos % (Auto) Baso % (Auto) Absolute Neuts (auto) Absolute Lymphs (auto) Total Counted PT 22.1 H INR 1.9 APTT 37.3 H Sodium Potassium Chloride Carbon Dioxide Anion Gap BUN Creatinine Estim Creat Clear Calc Est GFR (MDRD) Af Amer Est GFR (MDRD) Non-Af BUN/Creatinine Ratio Glucose Calcium Magnesium Total Bilirubin AST ALT Alkaline Phosphatase Troponin I Total Protein Albumin Globulin Albumin/Globulin Ratio Triglycerides Cholesterol LDL Cholesterol VLDL Cholesterol HDL Cholesterol
== END 2017-12-13 13:42 | disposition home or self-care (01) ==
LOC: ED 20:00 → PCU 21:08
PROVIDERS: Admitting Provider Family Medicine; Emergency Provider Emergency Medicine; Family Provider Family Medicine Geriatric Medicine; PCP Family Medicine Geriatric Medicine; Visit Provider Internal Medicine
DX: R07.89 Other chest pain (principal); E78.5 Hyperlipidemia, unspecified; I10 Essential (primary) hypertension; I25.10 Atherosclerotic heart disease of native coronary artery without angina pectoris; Z95.5 Presence of coronary angioplasty implant and graft; Z79.01 Long term (current) use of anticoagulants; Z79.899 Other long term (current) drug therapy; Z79.82 Long term (current) use of aspirin; I16.9 Hypertensive crisis, unspecified; Z86.718 Personal history of other venous thrombosis and embolism; E66.9 Obesity, unspecified; Z68.32 Body mass index [BMI] 32.0-32.9, adult; Z71.3 Dietary counseling and surveillance; I35.0 Nonrheumatic aortic (valve) stenosis
CPT/HCPCS: 36415; 71045; 78452; 80048; 80053; 80061; 83735; 84484; 85025; 85027; 85610; 85730; 93005; 93017; 93306; 96361; 96374; 96376; 99218; 99283; A9500; J7030; A4216; G0378; J2785

== ENCOUNTER → 2018-01-16 12:06 | Outpatient (CLI) | payer MEDICARE, OTHER, SELFPAY ==
[2018-01-16 12:46] LABS: Absolute Lymphocyte Count 1.62 X10^3/ul (0.83-4.51); Absolute Neutrophil Count 3.4 X10^3/uL (2.0-7.7); Basophil# 0.02 X10^3/uL; Basophil% 0.3 % (0-1); Eosinophil# 0.14 X10^3/uL; Eosinophils% 2.4 % (0-5); Hematocrit 38.4 % (37-47); Hemoglobin 12.5 g/dl (12.0-15.0); Lymphocyte # 1.62 X10^3/ul (4.0); Lymphocyte % 27.8 % (19-41); Mean Corp Hgb Conc 32.6 g/gl (32-36); Mean Corpuscular Hgb 32.6 pg (27.0-32.0); Mean Corpuscular Volume 100.3 fL (81-99); Mean Platelet Vol. 11.7 fl (6.2-12.0); Monocyte# 0.61 X10^3/uL; Monocyte% 10.5 % (0-10); Neutrophil # 3.43 X10^3/uL (2.7-7.7); Neutrophil % 58.8 % (47-70); Platelet Count 241 K/mm3 (150-450); RBC Distribution Width CV 13.8 % (11.6-14.6); RBC Distribution Width SD 49.3 fl (35.1-43.9); Red Blood Count 3.83 M/mm3 (4.2-5.4); White Blood Count 5.8 K/mm3 (4.4-11.0)
[2018-01-16 12:47] LABS: POSITIVE COUNT NO; POSITIVE DIFFERENTIAL NO; POSITIVE MORPHOLOGY NO
[2018-01-16 13:13] LABS: ALB/GLOB Ratio 0.8 RATIO (0.9-2.4); AST(SGOT) 21 U/L (15-37); Alanine Aminotransfer ALT/SGPT 25 U/L (13-56); Albumin, Serum 3.4 g/dL (3.2-5.0); Alkaline Phosphatase 68 U/L (45-117); Anion Gap 10 (5-15); BUN 14 mg/dL (7-18); BUN/Creat Ratio 18.4 RATIO (10-20); Calcium,Total 8.6 mg/dL (8.5-10.1); Chloride 103 mmol/L (98-107); Creatinine, Serum 0.76 mg/dL (0.55-1.02); EST Glomerular Filtration Rate 77 mL/min (>60); Est Glom Filt Rate - Afr Amer 94 mL/min (>60); Globulin 4.1 g/dL (2.2-4.2); Glucose 82 mg/dL (74-106); Potassium 4.4 mmol/L (3.5-5.1); Protein, Total 7.5 g/dL (6.4-8.2); Sodium Level 140 mmol/L (136-145); Thyroid Stim Hormone (TSH) 1.86 uIU/mL (0.358-3.74)
[2018-01-16 14:53] LABS: Vitamin D,25 Hydroxy 79.6 ng/mL (29.95-100.01)
== END ==
PROVIDERS: Family Provider Family Medicine Geriatric Medicine; PCP Family Medicine Geriatric Medicine; Visit Provider Family Medicine Geriatric Medicine
DX: E55.9 Vitamin D deficiency, unspecified (principal); I10 Essential (primary) hypertension
CPT/HCPCS: 36415; 80053; 82306; 84443; 85025

== ENCOUNTER → 2018-07-17 | Outpatient (CLI) | payer MEDICARE, OTHER, SELFPAY ==
[2018-07-10 09:38] VITALS: BMI 31.1
[2018-07-17 14:56] LABS: Basophil# 0.02 X10^3/uL; Basophil% 0.5 % (0-1); Eosinophil# 0.13 X10^3/uL; Eosinophils% 3.4 % (0-5); Hemoglobin 12.4 g/dl (12.0-15.0); Lymphocyte % 34.1 % (19-41); Mean Corp Hgb Conc 32.6 g/gl (32-36); Mean Corpuscular Hgb 32.1 pg (27.0-32.0); Mean Corpuscular Volume 98.4 fL (81-99); Mean Platelet Vol. 11.1 fl (6.2-12.0); Monocyte# 0.38 X10^3/uL; Neutrophil # 1.97 X10^3/uL (2.7-7.7); Neutrophil % 51.7 % (47-70); Platelet Count 223 K/mm3 (150-450); RBC Distribution Width CV 14.3 % (11.6-14.6); RBC Distribution Width SD 50.9 fl (35.1-43.9); Red Blood Count 3.86 M/mm3 (4.2-5.4); White Blood Count 3.8 K/mm3 (4.4-11.0)
[2018-07-17 14:58] LABS: POSITIVE COUNT NO; POSITIVE DIFFERENTIAL NO; POSITIVE MORPHOLOGY NO
[2018-07-17 15:15] LABS: Vitamin D,25 Hydroxy 77.9 ng/mL (29.95-100.01)
[2018-07-17 15:22] LABS: ALB/GLOB Ratio 0.9 RATIO (0.9-2.4); AST(SGOT) 24 U/L (15-37); Alanine Aminotransfer ALT/SGPT 21 U/L (13-56); Albumin, Serum 3.2 g/dL (3.2-5.0); Alkaline Phosphatase 54 U/L (45-117); Anion Gap 4 (5-15); BUN 22 mg/dL (7-18); BUN/Creat Ratio 22.8 RATIO (10-20); Calcium,Total 8.6 mg/dL (8.5-10.1); Chloride 106 mmol/L (98-107); Creatinine, Serum 0.96 mg/dL (0.55-1.02); EST Glomerular Filtration Rate 59 mL/min (>60); Est Glom Filt Rate - Afr Amer 71 mL/min (>60); Globulin 3.4 g/dL (2.2-4.2); Glucose 63 mg/dL (74-106); Potassium 4.3 mmol/L (3.5-5.1); Protein, Total 6.6 g/dL (6.4-8.2); Sodium Level 138 mmol/L (136-145); Thyroid Stim Hormone (TSH) 1.95 uIU/mL (0.358-3.74)
== END | disposition home or self-care (01) ==
LOC: POLAB3 13:52
PROVIDERS: Family Provider Family Medicine Geriatric Medicine; PCP Family Medicine Geriatric Medicine; Visit Provider Family Medicine Geriatric Medicine
DX: I10 Essential (primary) hypertension (principal); E55.9 Vitamin D deficiency, unspecified
CPT/HCPCS: 36415; 80053; 82306; 84443; 85025

== ENCOUNTER → 2019-01-18 09:17 | Outpatient (CLI) | payer MEDICARE, OTHER, SELFPAY ==
[2018-07-10 09:38] VITALS: BMI 31.1
[2019-01-18 12:38] LABS: Vitamin D,25 Hydroxy 77.7 ng/mL (29.95-100.01)
[2019-01-18 12:39] LABS: Absolute Lymphocyte Count 1.46 X10^3/uL (0.83-4.51); Absolute Neutrophil Count 2.3 X10^3/uL (2.0-7.7); Basophil# 0.04 X10^3/uL; Basophil% 0.9 % (0-1); Eosinophil# 0.08 X10^3/uL; Eosinophils% 1.8 % (0-5); Hematocrit 40.8 % (37-47); Hemoglobin 13.2 g/dL (12.0-15.0); Lymphocyte # 1.46 X10^3/ul (4.0); Lymphocyte % 33.7 % (19-41); Mean Corp Hgb Conc 32.4 g/dL (32-36); Mean Corpuscular Hgb 32.6 pg (27.0-32.0); Mean Corpuscular Volume 100.7 fL (81-99); Mean Platelet Vol. 11.5 fl (6.2-12.0); Monocyte# 0.45 X10^3/uL; Monocyte% 10.4 % (0-10); NRBC Flagged by Analyzer 0 % (0-5); Neutrophil # 2.29 X10^3/uL (2.7-7.7); Platelet Count 216 K/mm3 (150-450); RBC Distribution Width CV 13.1 % (11.6-14.6); RBC Distribution Width SD 48.8 fl (35.1-43.9); Red Blood Count 4.05 M/mm3 (4.2-5.4); White Blood Count 4.3 K/mm3 (4.4-11.0)
[2019-01-18 12:40] LABS: ALB/GLOB Ratio 0.9 RATIO (0.9-2.4); AST(SGOT) 22 U/L (15-37); Alanine Aminotransfer ALT/SGPT 24 U/L (13-56); Albumin, Serum 3.3 g/dL (3.2-5.0); Alkaline Phosphatase 55 U/L (45-117); Anion Gap 7 (5-15); BUN 24 mg/dL (7-18); Calcium,Total 8.7 mg/dL (8.5-10.1); Chloride 102 mmol/L (98-107); Creatinine, Serum 0.86 mg/dL (0.55-1.02); EST Glomerular Filtration Rate 67 mL/min (>60); Est Glom Filt Rate - Afr Amer 81 mL/min (>60); Globulin 3.7 g/dL (2.2-4.2); Glucose 70 mg/dL (74-106); Potassium 4.6 mmol/L (3.5-5.1); Sodium Level 137 mmol/L (136-145); Thyroid Stim Hormone (TSH) 2.05 uIU/mL (0.358-3.74)
== END ==
PROVIDERS: Family Provider Family Medicine Geriatric Medicine; PCP Family Medicine Geriatric Medicine; Visit Provider Family Medicine Geriatric Medicine
DX: I10 Essential (primary) hypertension (principal); E55.9 Vitamin D deficiency, unspecified
CPT/HCPCS: 36415; 80053; 82306; 84443; 85025

== ENCOUNTER → 2019-07-26 09:12 | Outpatient (CLI) | payer MEDICARE, OTHER, SELFPAY ==
[2019-06-18 10:39] VITALS: BMI 30.3
[2019-07-26 12:45] LABS: Absolute Lymphocyte Count 1.72 X10^3/uL (0.83-4.51); Absolute Neutrophil Count 2.7 X10^3/uL (2.0-7.7); Basophil# 0.04 X10^3/uL; Basophil% 0.8 % (0-1); Eosinophil# 0.11 X10^3/uL; Eosinophils% 2.2 % (0-5); Hematocrit 41.5 % (37-47); Hemoglobin 13.5 g/dL (12.0-15.0); Lymphocyte # 1.72 X10^3/ul (4.0); Lymphocyte % 33.7 % (19-41); Mean Corp Hgb Conc 32.5 g/dL (32-36); Mean Corpuscular Hgb 32.5 pg (27.0-32.0); Mean Platelet Vol. 12.2 fl (6.2-12.0); Monocyte# 0.55 X10^3/uL; Monocyte% 10.8 % (0-10); NRBC Flagged by Analyzer 0 % (0-5); Neutrophil # 2.67 X10^3/uL (2.7-7.7); Neutrophil % 52.3 % (47-70); Platelet Count 268 K/mm3 (150-450); RBC Distribution Width CV 13.4 % (11.6-14.6); RBC Distribution Width SD 49.9 fl (35.1-43.9); Red Blood Count 4.15 M/mm3 (4.2-5.4); White Blood Count 5.1 K/mm3 (4.4-11.0)
[2019-07-26 13:03] LABS: Vitamin D,25 Hydroxy 84.6 ng/mL
[2019-07-26 13:10] LABS: ALB/GLOB Ratio 0.9 RATIO (0.9-2.4); AST(SGOT) 33 U/L (15-37); Alanine Aminotransfer ALT/SGPT 35 U/L (13-56); Albumin, Serum 3.5 g/dL (3.2-5.0); Alkaline Phosphatase 64 U/L (45-117); Anion Gap 7 (5-15); BUN 21 mg/dL (7-18); BUN/Creat Ratio 22.3 RATIO (10-20); Chloride 102 mmol/L (98-107); Creatinine, Serum 0.94 mg/dL (0.55-1.02); EST Glomerular Filtration Rate 60 mL/min (>60); Est Glom Filt Rate - Afr Amer 73 mL/min (>60); Glucose 73 mg/dL (74-106); Potassium 4.7 mmol/L (3.5-5.1); Protein, Total 7.5 g/dL (6.4-8.2); Sodium Level 137 mmol/L (136-145); Thyroid Stim Hormone (TSH) 2.94 uIU/mL (0.358-3.74)
== END ==
PROVIDERS: PCP Family Medicine Geriatric Medicine; Visit Provider Family Medicine Geriatric Medicine
DX: I10 Essential (primary) hypertension (principal); E55.9 Vitamin D deficiency, unspecified
CPT/HCPCS: 36415; 80053; 82306; 84443; 85025

== ENCOUNTER 2019-08-24 22:57 | Emergency (ER) | payer MEDICARE, OTHER, SELFPAY ==
[2019-07-26 09:55] VITALS: BMI 30.9
[2019-08-24 22:59] VITALS: BP 190/94; PULSE 80; RESP 15; TEMP 37; O2SAT 97; BMI 31.5
--- NOTE | 2019-08-24 23:15 | ED.DCSUM_ITS ---
History of Present Illness Chief Complaint: Complaint Informant: Patient Onset: Days Narrative: Patient presents due to lower abdominal pain and continued dysuria. Last week she had developed dysuria and hematuria. 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 The doctor at that facility wrote her for a course of Keflex. Patient states the medication did not agree with me and she has not taken very many of the pills. She presents tonight with left lower back pain that started 2 or 3 days ago. She reports lower abdominal bloating. She still has mild dysuria. She also reports mild cough. She reportedly has been exposed to multiple people with Covid as there been several members of her sabianism that tested positive. - Past Medical History (1) Atherosclerotic heart disease of [place] coronary artery without angina pectoris Status: Chronic Comment: ERU-MWM-Vyvc-Mid RCA w/ 4.0 x 18 mm Penta Stent 06/2001 (2) Essential (primary) hypertension Status: Chronic (3) Hyperlipidemia Status: Chronic (4) Nonrheumatic aortic (valve) stenosis Status: Chronic (5) Deep vein thrombosis Status: Resolved Comment: 15 years ago (6) History of coronary artery stent placement Status: Resolved Comment: MFA-EWA-Pynj-Mid RCA w/ 4.0 x 18 mm Penta Stent 06/2001 Past Medical History - Allergies and Home Meds Allergies/Adverse Reactions: Allergies azithromycin Allergy (Severe, Verified 08/24/19 23:03) Other per pt impairs kidney function and she was unable to walk for 1 week pravastatin Adverse Reaction (Severe, Verified 08/24/19 23:03) mylagias Primary Care Physician: Edgar Crooks Chi, MD [Primary Care Provider] - Prior records reviewed: Yes Surgical History: - - stent Lives: With Family Smoking Status: Never smoker - Family History Maternal Family History: Family History (Last Reviewed 07/26/19 @ 10:09 by ANDREA Wills) Other CVA (cerebral vascular accident) Family History: Reports: No pertinent history Review of Systems General: Denies: Chills, Fever Eyes: Denies: Visual changes - bilaterally ENT: Denies: Bilateral ear pain Cardiovascular: Denies: Chest pain Respiratory: Reports: Cough. Denies: Dyspnea Gastrointestinal: Reports: Abdominal pain. Denies: Nausea, Vomiting, Diarrhea Genitourinary: Reports: Dysuria Musculoskeletal: Denies: Extremity Pain Skin: Denies: Rash Neurological: Denies: Headache Hematologic: Denies: Easy bruising, Easy bleeding Allergy: Denies: Uticaria Physical Exam Vital Signs/Narrative: Vital Signs Temp Pulse Resp BP Pulse Ox 08/24/19 22:59 98.6 F 80 15 190/94 H 97 Inital Vital Signs reviewed: Yes General: Well nourished, Well developed Head: Normocephalic ENT: Moist mucous membranes Neck: Supple Cardiovascular: Regular rate, Regular rhythm Respiratory: No distress, CTA bilaterally Abdomen: Soft, Tender - Mild suprapubic tenderness to palpation.. Negative for: Guarding, Rebound tenderness Back: Negative for: CVA tenderness Skin: Normal color Neurological: Alert, Oriented x3 Psychological: Normal affect Diagnostic/Tx/Re-eval Impressions Chest X-Ray 08/24/19 23:59 IMPRESSION: No pulmonary edema, congestive heart failure or confluent pneumonia. Component of hyperinflation and mild chronic interstitial disease, arteriosclerosis degenerative changes are stable findings. Electronically Signed: Latanya Rueda MD at 0:38 EDT , Service support , Abdomen/Pelvis CT 08/25/19 00:28 IMPRESSION: There is no obstructive uropathy, obstructive renal or ureteral calculi. There is no appendicitis, diverticulitis, ascites, abscess, collection, perforation or obstruction. There are few diverticula. The transverse colon to descending colon is decompressed, wall is indeterminate, no pericolonic fat stranding to suggest colitis. Mild proximal small bowel ileus without obstruction. Small hepatic cyst, right hepatic enlargement, arteriosclerosis, osteoporosis, degenerative changes, scoliosis, atelectasis or scarring in the lung bases, coronary artery disease, mild renal involution, nonobstructing renal calculi felt to be not acute findings. Electronically Signed: Latanya Rueda MD at 2:01 EDT , Service support , 08/24/19 23:59 CXR [Chest 1 View (Portable)] [RAD] Stat 08/25/19 00:28 Abdomen/Pelvis without Cont [CT] Stat Laboratory Results 08/24/19 08/24/19 23:17 23:40 Urine Color Yellow Urine Clarity Clear Urine pH 6.5 Ur Specific [place] 1.010 Urine Protein Negative Urine Glucose (UA) Normal Urine Ketones Negative Urine Occult Blood Negative Urine Nitrite Negative Urine Bilirubin Negative Urine Urobilinogen Normal Ur Leukocyte Esterase 25 H Urine RBC 0 SEEN Urine WBC 0 SEEN Ur Squamous Epith Cells 5-10 SEEN Urine Bacteria 0 SEEN Urine Mucus 0 SEEN COVID-19 ([facility]) Detected - Medical Decision Making Patient's urinalysis currently shows no sign of infection. Post void bladder scan shows no evidence of urinary retention. Chest x-ray is clear. CT scan was obtained because the patient continued to complain of lower abdominal pain and left low flank pain. This is grossly unremarkable for acute cause of symptoms. Patient's Covid test did come back positive. She may be having myalgias secondary to her viral infection. Test results are discussed with patient and daughter at bedside. At this time her vital signs are stable and she will be treated at home. She was given return instructions. ED Disposition - Plan for ED Patient: Disposition: Home or Assisted Living Diagnosis: COVID-19 virus infection Instructions: ED Viral Syndrome Referrals: Edgar Crooks Chi, MD [Primary Care Provider] - 1-2 Weeks
[2019-08-24 23:59] LABS: Bacteria 0 SEEN /hpf (None Seen); Mucous, Urine 0 SEEN /hpf (<or=2+); Red Blood Cells-Urine 0 SEEN /hpf (0-5); White Blood Cells 0 SEEN /hpf (0-5)
--- NOTE | 2019-08-24 23:59 | RAD_ITS ---
STUDY: X-RAY CHEST REASON FOR EXAM: Female, 84 years old. COMPLAINTS, COUGH, EXPOSED TO SOMEONE WITH COVID TECHNIQUE: Single AP portable view of the chest. COMPARISON: . 04/12/2016. FINDINGS: Stable mild areas of hyperinflation and interstitial prominence. There is no focal parenchymal abnormality. There is no demonstrated pleural abnormality. Normal size heart. Normal mediastinum and fermín. Normal visualized pulmonary arteries. There is atherosclerotic calcification of the aortic arch with tortuosity. There are diffuse degenerative changes of the visualized thoracic spine. There is degenerative osteoarthritis of the bilateral shoulders. There is no demonstrated abnormality of the visualized soft tissue structures of the upper abdomen. RAD/Chest 1 View (Portable) IMPRESSION: No pulmonary edema, congestive heart failure or confluent pneumonia. Component of hyperinflation and mild chronic interstitial disease, arteriosclerosis degenerative changes are stable findings. Electronically Signed: Latanya Rueda MD at 0:38 EDT , Service support ,
[2019-08-25] LABS: Color, Urine Yellow (Yellow); Glucose, Dipstick Normal (Normal); Ketone-Dipstick Negative (Negative); Leukocyte Esterase-Dipstick 25 /ul (Negative); Nitrite-Dipstick Negative (Negative); Occult Blood-Urine Negative /ul (Negative); Protein-Dipstick Negative (Negative); Urine Bilirubin Dipstick Negative (Negative); Urine Clarity Clear (Clear); Urine Urobilinogen Normal (Normal); Urine pH 6.5 (5.0 - 8.0)
[2019-08-25 00:05] LABS: Squamous Epithelial Cells - UA 5-10 SEEN /hpf (5-10)
--- NOTE | 2019-08-25 00:28 | CT_ITS ---
STUDY: CT ABDOMEN AND PELVIS WITHOUT CONTRAST REASON FOR EXAM: Female, 84 years old. LOWER ABD PAIN X 2-3 DAYS, DYSURIA, HEMATURIA, COUGH, EXPOSED TO COVID VIA [employer], HX DVT, STENTS, HTN RADIATION DOSAGE (If Supplied By Facility): CTDIvol = ( 16.09 ) mGy, DLP = ( 703.58 ) mGycm TECHNIQUE: Transaxial 5 mm images were obtained from the dome of the diaphragm to the symphysis pubis without oral contrast, and without intravenous contrast. Sagittal and coronal images were reconstructed. This examination is limited for the evaluation of gastrointestinal, solid organs and vascular structures due to the lack of intravenous and oral contrast. Individualized dose optimization techniques were used for this CT. COMPARISON: None. FINDINGS: There is mild hyperinflation, presumed linear scarring or minor atelectasis. There is coronary artery calcification. Enlarged right hepatic lobe. Small cyst in the anterior right hepatic lobe.. Normal gallbladder and extrahepatic biliary system. Normal spleen. Normal pancreas. Normal bilateral adrenal glands. 3 mm nonobstructing right upper renal pole calculus. Punctate nonobstructing left inferior renal pole calculus. Mild bilateral perirenal stranding. There is no obstructive uropathy, obstructive renal or ureteral calculi. Normal visualized stomach. Mild fluid distention of jejunal coursing into the lower abdomen. There is no abrupt caliber change. There are multiple colonic diverticula consistent with diverticulosis. The wall of the transverse colon and descending colon is indeterminate, there is nondistention. There is no significant pericolonic fat stranding. The appendix is visualized and appears normal. There is atherosclerosis of the abdominal aorta, greater branches and pelvic arteries without aneurysm or leak. Normal inferior vena cava. Normal retroperitoneum. Normal urinary bladder. The uterus is age appropriate. Normal abdominal wall. There are diffuse degenerative changes of the visualized lumbar spine, osteopenia, dextroscoliosis CT/Abdomen/Pelvis without Cont IMPRESSION: There is no obstructive uropathy, obstructive renal or ureteral calculi. There is no appendicitis, diverticulitis, ascites, abscess, collection, perforation or obstruction. There are few diverticula. The transverse colon to descending colon is decompressed, wall is indeterminate, no pericolonic fat stranding to suggest colitis. Mild proximal small bowel ileus without obstruction. Small hepatic cyst, right hepatic enlargement, arteriosclerosis, osteoporosis, degenerative changes, scoliosis, atelectasis or scarring in the lung bases, coronary artery disease, mild renal involution, nonobstructing renal calculi felt to be not acute findings. Electronically Signed: Latanya Rueda MD at 2:01 EDT , Service support ,
[2019-08-25 02:19] VITALS: PULSE 77; RESP 16; O2SAT 99
== END 2019-08-25 02:20 | disposition home or self-care (01) ==
PROVIDERS: Emergency Provider Emergency Medicine; PCP Family Medicine Geriatric Medicine
DX: U07.1 COVID-19 (principal); R31.9 Hematuria, unspecified; R30.0 Dysuria; I10 Essential (primary) hypertension; I35.0 Nonrheumatic aortic (valve) stenosis; E78.5 Hyperlipidemia, unspecified; I25.10 Atherosclerotic heart disease of native coronary artery without angina pectoris; Z86.718 Personal history of other venous thrombosis and embolism; Z95.5 Presence of coronary angioplasty implant and graft; Z79.01 Long term (current) use of anticoagulants; Z79.899 Other long term (current) drug therapy
CPT/HCPCS: 71045; 74176; 81001; 87086; 87088; 87186; 87635; 99282; U0003

== ENCOUNTER → 2019-10-25 08:59 | Outpatient (CLI) | payer MEDICARE, OTHER, SELFPAY ==
--- NOTE | 2019-10-25 09:15 | EKG12_ITS ---
Test Reason : PRE OP Blood Pressure : / mmHG Vent. Rate : 067 BPM Atrial Rate : 067 BPM P-R Int : 176 ms QRS Dur : 086 ms QT Int : 406 ms P-R-T Axes : 063 041 053 degrees QTc Int : 429 ms Normal sinus rhythm Normal ECG No previous ECGs available Confirmed by ELIZABETH PAEZ, ELIEZER ([id number]), primer expeditor and drier MARTHA JOSHI ([id number]) on 10/25/2019 2:08:06 PM Referred By: JOSE JUAN CAR Confirmed By:SHEILA JOHNSON MD
[2019-10-25 09:55] LABS: Absolute Lymphocyte Count 1.41 X10^3/uL (0.83-4.51); Absolute Neutrophil Count 2.7 X10^3/uL (2.0-7.7); Basophil# 0.03 X10^3/uL; Basophil% 0.6 % (0-1); Eosinophil# 0.08 X10^3/uL; Eosinophils% 1.7 % (0-5); Hematocrit 40.1 % (37-47); Hemoglobin 13.2 g/dL (12.0-15.0); Lymphocyte # 1.41 X10^3/ul (4.0); Lymphocyte % 30.2 % (19-41); Mean Corp Hgb Conc 32.9 g/dL (32-36); Mean Corpuscular Hgb 33.2 pg (27.0-32.0); Mean Corpuscular Volume 100.8 fL (81-99); Mean Platelet Vol. 11.4 fl (6.2-12.0); Monocyte# 0.45 X10^3/uL; Monocyte% 9.6 % (0-10); NRBC Flagged by Analyzer 0 % (0-5); Neutrophil # 2.68 X10^3/uL (2.7-7.7); Neutrophil % 57.5 % (47-70); Platelet Count 223 K/mm3 (150-450); RBC Distribution Width CV 13.4 % (11.6-14.6); RBC Distribution Width SD 50.4 fl (35.1-43.9); Red Blood Count 3.98 M/mm3 (4.2-5.4); White Blood Count 4.7 K/mm3 (4.4-11.0)
[2019-10-25 10:09] LABS: International Normalized Ratio 1.8; Prothrombin Time (Protime)PT. 20.1 SECONDS (11.7-14.9)
[2019-10-25 10:10] LABS: Partial Thromboplast Time 32.5 Seconds (24.1-36.2)
[2019-10-25 10:30] LABS: ALB/GLOB Ratio 0.9 RATIO (0.9-2.4); AST(SGOT) 23 U/L (15-37); Alanine Aminotransfer ALT/SGPT 19 U/L (13-56); Albumin, Serum 3.4 g/dL (3.2-5.0); Alkaline Phosphatase 58 U/L (45-117); Anion Gap 2 (5-15); BUN 22 mg/dL (7-18); BUN/Creat Ratio 26.2 RATIO (10-20); Chloride 107 mmol/L (98-107); Creatinine, Serum 0.84 mg/dL (0.55-1.02); EST Glomerular Filtration Rate 69 mL/min (>60); Est Glom Filt Rate - Afr Amer 83 mL/min (>60); Globulin 3.9 g/dL (2.2-4.2); Glucose 90 mg/dL (74-106); Potassium 4.6 mmol/L (3.5-5.1); Protein, Total 7.3 g/dL (6.4-8.2); Sodium Level 138 mmol/L (136-145)
== END ==
PROVIDERS: PCP Family Medicine Geriatric Medicine
DX: R53.1 Weakness (principal); I87.1 Compression of vein; M79.604 Pain in right leg
CPT/HCPCS: 36415; 80053; 85025; 85610; 85730; 93005

== ENCOUNTER 2019-11-20 18:27 | Inpatient (IN) | payer MEDICARE, OTHER, SELFPAY ==
[2019-11-20] VITALS (11 sets, daily range): BP systolic 163–251; BP diastolic 89–125; PULSE 68–100; RESP 13–22; TEMP 36.6–36.9; O2SAT 96–99; BMI 31.9; BMI 30.5; BMI 30.6
--- NOTE | 2019-11-20 18:36 | CT_ITS ---
STUDY: CT BRAIN WITHOUT CONTRAST REASON FOR EXAM: Female, 84 years old. VISION LOSS/DIZZY/MAYBERRY. Hx of HTN and heart stent RADIATION DOSAGE (If Supplied By Facility): CTDIvol = ( 44.99 ) mGy, DLP = ( 812.98 ) mGycm TECHNIQUE: Transaxial CT imaging of the brain was performed without administration of intravenous contrast material. Individualized dose optimization techniques were used for this CT. COMPARISON: August 20, 2014 FINDINGS: Normal soft tissue structures. Normal calvarium. There is mild cerebral atrophy with widening of the extra-axial spaces and ventricular dilatation. There are areas of decreased attenuation within the white matter tracts of the supratentorial brain, consistent with microvascular disease changes. There are small punctate calcifications of the basal ganglia which are seen in the aging brain as a normal variant. Normal brainstem. Normal cerebellum. There is no intracranial hemorrhage. There are no findings of an acute ischemic infarction. Normal visualized paranasal sinuses. CT/Brain/Head without Contrast IMPRESSION: Chronic involutional changes of the brain. Electronically Signed: Phil Olivares MD at 19:47 EDT , Service support ,
--- NOTE | 2019-11-20 18:36 | EKG12_ITS ---
Test Reason : DYSRHYTHMIA Blood Pressure : / mmHG Vent. Rate : 085 BPM Atrial Rate : 085 BPM P-R Int : 186 ms QRS Dur : 088 ms QT Int : 364 ms P-R-T Axes : 060 044 051 degrees QTc Int : 433 ms Normal sinus rhythm Normal ECG Confirmed by ELIZABETH PAEZ, ELIEZER ([id number]), newspaper editor managing CANDIE PEMBERTON ([id number]) on 11/26/2019 1:17:33 PM Referred By: REJI Confirmed By:SHEILA JOHNSON MD
--- NOTE | 2019-11-20 18:39 | ED.VISSUMM ---
- ER Visit Summary Date of Service: 11/20/19 Chief Complaint: Headache, visual changes History of Present Illness: The patient is a 84 F who presents with a headache and visual changes. She states that started 2 hours prior to arrival. She had a diffuse throbbing headache and she states her vision decreased. She states that she can see images of black but no colors. She states that her vision is now pretty much back to normal. She still has a slight headache. She admits to some nausea. Her blood pressure is severely elevated here. She is on lisinopril 10 mg twice daily and has been compliant with this. She denies any weakness, slurred speech, facial droop. She is on Coumadin as well. Physical Examination: Vital signs reviewed. HEENT exam unremarkable. Heart is regular rate and rhythm without murmurs. Lungs are clear to auscultation. Abdomen is soft and nontender. Extremities reveal no edema. Skin exam normal. Neurologic exam normal. NIH equals 0 Test Results: CAT scan of the head is unremarkable. EKG is sinus rhythm with rate of 85. No ST changes. Laboratory studies are unremarkable except for an INR 1.6. Emergency Department Course and Treatment: The patient has no strokelike symptoms. Her CAT scan is unremarkable. I feel that her visual changes were likely due to her elevated blood pressure in the 230s systolic. I gave her 1 dose of IV labetalol and her blood pressure decreased to 190 systolic. Current blood pressure is 162/87. The patient's visual symptoms have resolved. Her NIH remains at 0. I feel she should be admitted to the hospital for further evaluation and management her blood pressure. I spoke with the hospitalist who requested that the patient go to the ICU Treatment Plan: [] Disposition: Admission Impression: Hypertensive emergency, acute visual changes, secondary to high blood pressure This note was generated with [employer] software. It may contain incorrect words, spelling, and punctuation that were not noted in review of the chart prior to signing ED Disposition - Plan for ED Patient: Referrals: Edgar Crooks Chi, MD [Primary Care Provider] -
[2019-11-20] MEDS: Labetalol (Prefilled) 20 MG/4 ML IV (18:48)
[2019-11-20 18:55] LABS: Absolute Lymphocyte Count 2.23 X10^3/uL (0.83-4.51); Absolute Neutrophil Count 2.9 X10^3/uL (2.0-7.7); Basophil# 0.03 X10^3/uL; Basophil% 0.5 % (0-1); Eosinophil# 0.11 X10^3/uL; Eosinophils% 1.9 % (0-5); Hematocrit 41.3 % (37-47); Hemoglobin 13.6 g/dL (12.0-15.0); Lymphocyte # 2.23 X10^3/ul (4.0); Lymphocyte % 38.7 % (19-41); Mean Corp Hgb Conc 32.9 g/dL (32-36); Mean Corpuscular Hgb 32.5 pg (27.0-32.0); Mean Corpuscular Volume 98.6 fL (81-99); Mean Platelet Vol. 11.1 fl (6.2-12.0); Monocyte# 0.51 X10^3/uL; Monocyte% 8.9 % (0-10); NRBC Flagged by Analyzer 0 % (0-5); Neutrophil # 2.87 X10^3/uL (2.7-7.7); Neutrophil % 49.8 % (47-70); Platelet Count 271 K/mm3 (150-450); RBC Distribution Width CV 13.4 % (11.6-14.6); RBC Distribution Width SD 48.3 fl (35.1-43.9); Red Blood Count 4.19 M/mm3 (4.2-5.4); White Blood Count 5.8 K/mm3 (4.4-11.0)
[2019-11-20 19:14] LABS: International Normalized Ratio 1.6; Partial Thromboplast Time 30.6 Seconds (24.1-36.2); Prothrombin Time (Protime)PT. 18.3 SECONDS (11.7-14.9)
[2019-11-20 19:26] LABS: ALB/GLOB Ratio 0.8 RATIO (0.9-2.4); AST(SGOT) 30 U/L (15-37); Alanine Aminotransfer ALT/SGPT 23 U/L (13-56); Albumin, Serum 3.6 g/dL (3.2-5.0); Alkaline Phosphatase 73 U/L (45-117); Anion Gap 4 (5-15); BUN 22 mg/dL (7-18); BUN/Creat Ratio 20.2 RATIO (10-20); Calcium,Total 9.5 mg/dL (8.5-10.1); Chloride 106 mmol/L (98-107); Creatinine, Serum 1.09 mg/dL (0.55-1.02); EST Glomerular Filtration Rate 51 mL/min (>60); Est Glom Filt Rate - Afr Amer 61 mL/min (>60); Estimated Creatinine Clearance 30.39 ml/min; Globulin 4.5 g/dL (2.2-4.2); Glucose 99 mg/dL (74-106); Lipase 175 U/L (73-393); Potassium 4.3 mmol/L (3.5-5.1); Protein, Total 8.1 g/dL (6.4-8.2); Sodium Level 137 mmol/L (136-145)
--- NOTE | 2019-11-20 20:05 | ED.RN ---
THIS NURSE SPOKE WITH DR. MARCH PER NIHSS DISCONTINUED. PT RESTING IN A POSITION OF COMFORT WITH NO FURTHER NEEDS AT THIS TIME.
--- NOTE | 2019-11-20 22:14 | HP.PCM_ITS ---
Problem List (1) Hypertensive emergency Status: Acute (2) Chest pain Status: Inactive (3) Atherosclerotic heart disease of [place] coronary artery without angina pectoris Status: Chronic Qualifiers: [place] vs. transplanted heart: [place] heart Qualified Code(s): I25.10 - Atherosclerotic heart disease of [place] coronary artery without angina pectoris Comment: LBL-RCN-Lkxp-Mid RCA w/ 4.0 x 18 mm Penta Stent 06/2001 (4) Nonrheumatic aortic (valve) stenosis Status: Chronic (5) Essential (primary) hypertension Status: Chronic (6) Hyperlipidemia Status: Chronic Qualifiers: Hyperlipidemia type: mixed hyperlipidemia Qualified Code(s): E78.2 - Mixed hyperlipidemia (7) History of coronary artery stent placement Status: Chronic Comment: QFY-MDK-Mnud-Mid RCA w/ 4.0 x 18 mm Penta Stent 06/2001 (8) Deep vein thrombosis Status: Chronic Comment: 15 years ago History of Present Illness Date of Admission: 11/20/19 Chief Complaint: Blurry vision The patient is a 84 year old F with a significant history of DVT; essential hypertension; nonrheumatic aortic valve stenosis; CAD status post stent who presents to the emergency department with blurry vision that started few hours before presentation. Associated with her symptom is bitemporal headache and vertigo. At emergency department patient's blood pressure was found to be severely elevated. CT of her head showed chronic changes. Past Medical History Past Medical History (Chronic Problems): Chronic Problems (Last Reviewed 11/21/19 @ 05:[address] Candido Machado MD) Atherosclerotic heart disease of [place] coronary artery without angina pectoris (Chronic) OUX-LDC-Jluj-Mid RCA w/ 4.0 x 18 mm Penta Stent 06/2001 History of coronary artery stent placement (Chronic 06/19/01) MXC-RRV-Mvhb-Mid RCA w/ 4.0 x 18 mm Penta Stent 06/2001 Nonrheumatic aortic (valve) stenosis (Chronic) Essential (primary) hypertension (Chronic) Hyperlipidemia (Chronic) Deep vein thrombosis (Chronic) 15 years ago Medical History: Medical History (Last Reviewed 11/21/19 @ 05:[address] Candido Machado MD) Atherosclerotic heart disease of [place] coronary artery without angina pectoris (Chronic) I25.10 UBE-NDI-Hecq-Mid RCA w/ 4.0 x 18 mm Penta Stent 06/2001 Nonrheumatic aortic (valve) stenosis (Chronic) I35.0 Essential (primary) hypertension (Chronic) I10 Hyperlipidemia (Chronic) E78.5 Deep vein thrombosis (Resolved) I82.409 15 years ago Allergies azithromycin Allergy (Severe, Verified 08/24/19 23:03) Other per pt impairs kidney function and she was unable to walk for 1 week pravastatin Adverse Reaction (Severe, Verified 08/24/19 23:03) mylagias Home Medications: Ambulatory Orders Medication Instructions Recorded Warfarin [Coumadin] 4 mg PO DAILY 06/12/13 Cholecalciferol (Vitamin D3) 5,000 unit PO DAILY 12/12/17 [Vitamin D3] Ubidecarenone [Co Q-10] 200 mg PO DAILY 12/12/17 Nitroglycerin 0.4 mg SUBLINGUAL Q5M PRN #30 12/13/17 tab.subl atorvastatin 10 mg tablet 10 mg PO DAILY #90 tab 01/25/19 turmeric 400 mg capsule 400 mg PO DAILY cap 01/25/19 lisinopril 10 mg tablet 10 mg PO BID tab 07/26/19 Grape Seed Extract [Grape Seed] 50 mg PO DAILY 11/20/19 Surgical History: Surgical History (Last Reviewed 11/21/19 @ 05:[address] Candido Machado MD) History of coronary artery stent placement (Resolved) Onset Date: 06/19/01 Z95.5 QKW-BFH-Kjkg-Mid RCA w/ 4.0 x 18 mm Penta Stent 06/2001 History of left heart catheterization Onset Date: 07/26/13 Z98.890 Surgical History: - - stent Psychiatric History: No pertinent psych hx Smoking Status: Never smoker - *Family History Maternal Family History: Family History (Last Reviewed 11/21/19 @ 05:[address] Candido Machado MD) Other CVA (cerebral vascular accident) History Items: - - Her mother through childbirth. Review of Systems Constitutional: Denies: Chills, Fever, Weight Change HEENT: Denies: Head Aches, Sinus Congestion, Sinus Drainage Cardiovascular: Denies: Chest Pain, Palpitations Respiratory: Denies: Cough, Shortness of breath at rest, Sputum production Gastrointestinal: Reports: Nausea. Denies: Abdominal Pain, Vomiting Genitourinary: Denies: Dysuria Musculoskeletal: Denies: Joint Pain, Joint Tenderness Skin: Denies: Rash, Wounds Neurological: Reports: Blurred vision, Headaches, Tremor. Denies: Focal weakness, Numbness, Tingling Psychiatric: Denies: Anxiety, Depression, Homicidal Ideations, Suicidal Ideations Hematologic/ Lymphatic: Denies: Easy Bruising, Easy Bleeding VTE Information - Inpt Only VTE Present on Admission: No VTE Mechan Device Prophylaxis: None VTE Pharm Prophylaxis ordered?: No Reason prophylaxis not ordered:: Treatment Not Indicated - On Coumadin, bridging with Lovenox for history of DVT. Patient Problems: Active and Suspected Problems (Last Reviewed 11/21/19 @ 05:[address] Cnadido Machado MD) Hypertensive emergency (Acute) - Physical Exam Vitals/I&O's: Vital Signs Temp Pulse Resp BP Pulse Ox 98 F 69 14 191/109 H 97 11/20/19 18:30 11/20/19 21:00 11/20/19 21:00 11/20/19 21:00 11/20/19 21:00 Oxygen Delivery Method Room Air Weight: 79.2 kg Body Mass Index (BMI) 31.9 General: Alert, Oriented x3, Cooperative HEENT: Atraumatic, PERRLA, EOMI, Normocephalic Neck: Supple, No JVD, Negative Carotid Bruits Lungs: Clear to auscultation, Normal air movement Cardiovascular: Regular rate, Normal S1, Normal S2, No murmurs, Murmur - 5/6 (the patient states it is chronic) Abdomen: Bowel Sounds Present, Soft, Non Tender Extremities: No edema, Capillary Refill Less than 3 Seconds Skin: No rashes, No breakdown Musculoskeletal: No Tenderness to Palpation of Joints or Extremities Neurological: Cranial nerves II-XII grossly intact - Patient has a poor peripher al vision of the right eye. Psych/Mental Status: Normal Affect, Appropriate Laboratory Results 11/20/19 18:45: WBC 5.8, RBC 4.19 L, Hgb 13.6, Hct 41.3, MCV 98.6, MCH 32.5 H, MCHC 32.9, RDW Std Deviation 48.3 H, RDW Coeff of Heladio 13.4, Plt Count 271, MPV 11.1, Immature Gran % (Auto) 0.200, Neut % (Auto) 49.8, Lymph % (Auto) 38.7, [place] % (Auto) 8.9, Eos % (Auto) 1.9, Baso % (Auto) 0.5, Absolute Neuts (auto) 2.9, Absolute Lymphs (auto) 2.23, Nucleated RBC % 0 11/20/19 18:45: PT 18.3 H, INR 1.6, APTT 30.6 11/20/19 18:45: Sodium 137, Potassium 4.3, Chloride 106, Carbon Dioxide 27.0, Anion Gap 4 L, BUN 22 H, Creatinine 1.09 H, Estim Creat Clear Calc 30.39, Est GFR (MDRD) Af Amer 61, Est GFR (MDRD) Non-Af 51 L, BUN/Creatinine Ratio 20.2 H, Glucose 99, Calcium 9.5, Total Bilirubin 0.40, AST 30, ALT 23, Alkaline Phosphatase 73, Troponin I < 0.015, Total Protein 8.1, Albumin 3.6, Globulin 4.5 H, Albumin/Globulin Ratio 0.8 L, Lipase 175 Current Medications Labetalol HCl (Trandate) 20 mg IV X1 PRN PRN Reason: BLOOD PRESSURE Last Admin: 11/20/19 18:48 Dose: 20 mg Documented by: Assessment/Plan All Active Problems (Last Reviewed 11/21/19 @ 05:[address] Candido Machado MD) Hypertensive emergency (Acute) Chest pain (Resolved) The patient is a 84 year old F with a significant history of DVT; essential hypertension; nonrheumatic aortic valve stenosis; CAD status post stent who presents emergency department with blurry vision; bilateral bitemporal headaches and vertigo. Hypertensive emergency Received labetalol x1 at emergency department. Her blood pressure improved. Discussed with emergency department doctor to give an additional dose of labetalol IV. Reported that many times at home her blood pressure has been elevated. Patient is on home lisinopril 10 mg twice daily; continued. Will start patient on amlodipine 5 milligrams PO x1 and then 5 mg daily Tylenol for headache. Zofran IV for antiemetics. CT head showed chronic involutional changes of the brain. Will order MRI brain. DVT INR on presentation was 1.6, subtherapeutic. Will give Lovenox 80 mg SC x 1. Patient took her daily dose of Coumadin 4 mg daily. We will give additional 2 mg and then 6 mg daily. Daily PT/INR ordered. DVT prophylaxis Not indicated since patient is on Coumadin and has received Lovenox bridging. Inpatient E&M: 30029 Init Hosp L3
[2019-11-20] MEDS: Labetalol (Prefilled) 20 MG/4 ML 10 MG IV (23:11)
[2019-11-21] VITALS (12 sets, daily range): BP systolic 105–181; BP diastolic 66–87; PULSE 72–86; RESP 14–18; TEMP 36.7–36.9; O2SAT 95–99
--- NOTE | 2019-11-21 00:14 | MRI_ITS ---
STUDY: MRI BRAIN WITHOUT CONTRAST REASON FOR EXAM: Female, 84 years old. hypertensive emergency with blurred vision TECHNIQUE: Standardized multiplanar fat and water weighted pulse sequences were obtained. COMPARISON: CT 11/20/2019 FINDINGS: There is moderate cerebral atrophy with widening of the extra-axial spaces and ventricular dilatation. There are multiple white matter hyperintensities, distributed throughout the deep white matter tracts of the cerebral hemispheres, consistent with moderate chronic white matter ischemic changes. There is no evidence for recent intracranial ischemia or other cause of cytotoxic edema on diffusion weighted imaging (DWI). Normal T2* images of the brain without demonstrated susceptibility artifact. There is no demonstrated hemosiderin stain. Normal bilateral basal ganglia. Normal thalami. There is no extra-axial fluid accumulation. Normal flow voids within the major intracranial circulation suggesting patency by spin echo criteria. Normal sella turcica, pituitary gland, infundibular stalk, optic chiasm and hypothalamus. Normal tectal plate and pineal gland. There are chronic white matter ischemic changes of the best. The midbrain and medulla are otherwise normal. Normal cerebellum. Normal basal cisterns. Normal bilateral temporal bones. Normal bilateral internal auditory canals. No demonstrated orbital abnormality, within the constraints of a routine brain study. Normal visualized paranasal sinuses. Normal calvarium and skull base. Normal visualized soft tissue structures. Normal visualized upper cervical spine. MRI/Brain without Contrast IMPRESSION: Involutional changes of the brain, as described above. No acute infarct. Electronically Signed: Toney Soni MD at 9:37 EDT Tel , Service support ,
[2019-11-21] MEDS: Lisinopril 10 MG Tablet PO ×3 (00:37→21:29)
[2019-11-21] MEDS: amLODIPine 5 MG Tablet PO ×2 (00:37→09:18)
[2019-11-21] MEDS: Ibuprofen 400 MG Tablet PO ×2 (00:37→21:32)
[2019-11-21] MEDS: Jantoven 2 MG Tablet PO (00:38)
[2019-11-21] MEDS: Enoxaparin 80 MG/0.8 ML Syringe SC (00:39)
[2019-11-21 06:36] LABS: Anion Gap 5 (5-15); BUN 19 mg/dL (7-18); BUN/Creat Ratio 22.1 RATIO (10-20); Calcium,Total 8.8 mg/dL (8.5-10.1); Chloride 105 mmol/L (98-107); Creatinine, Serum 0.86 mg/dL (0.55-1.02); EST Glomerular Filtration Rate 67 mL/min (>60); Est Glom Filt Rate - Afr Amer 81 mL/min (>60); Estimated Creatinine Clearance 38.51 ml/min; Glucose 88 mg/dL (74-106); Potassium 3.6 mmol/L (3.5-5.1); Sodium Level 138 mmol/L (136-145)
--- NOTE | 2019-11-21 09:02 | RDU_ITS ---
Reason For Study: Uncontrolled HTN Right Renal Artery Left Renal Artery Right renal artery ostium Left renal artery ostium 126.3/36.5 104.4/37.8 RSV/EDV. PSV/EDV. Right renal artery proximal Left renal artery proximal PSV/EDV 105.3/36.4 PSV/EDV. 99.2/34 . Right renal artery mid 107.4/38.5 Left renal artery mid 114.7/40.2 PSV/EDV. PSV/EDV . Right renal artery distal Left renal artery distal 108.5/24.7 124.1/37.6 PSV/EDV. PSV/EDV. Right RAR 1.41. Left RAR 1.43. Right Renal Parenchyma Left Renal Parenchyma Upper Pole Medula 34.6/11.8 Left upper pole medulla 29.1/11.8 PSV/EDV. PSV/EDV . Right upper pole medulla EDR 0.34 . Left upper pole medulla EDR 0.41 . Right upper pole medulla R.I. Left upper pole medulla R.I. 0.60 . 0.66 . UP Cortex 25.5/10.9 PSV/EDV. Upper Loi Cortx 26.4/8.1 PSV/EDV. Left upper pole cortex EDR 0.43 . Right upper pole cortex EDR 0.31 . Left upper pole cortex R.I. 0.57 . Right upper pole cortex R.I. 0.69 . Left lower Pole medulla 32.8/13.6 Right lower Pole medulla 35.5/13.6 PSV/EDV . PSV/EDV . Left lower pole medulla EDR 0.41 . Right lower pole medulla EDR 0.38 . Left lower pole medulla R.I. 0.58 . Right lower pole medulla R.I. Lower Pole Cortx 23.7/9 PSV/EDV. 0.62 . Left lower pole cortex EDR 0.38 . Lower Pole Cortex 26.4/10 PSV/EDV. Left lower pole cortex R.I. 0.62 . Right lower pole cortex EDR 0.38 . Left Renal Hilar Right lower pole cortex R.I. 0.62 . LT Hilar avg 37.4/13.6 PSV/EDV . Right Renal Hilar Left hilar acceleration time 70 Right Hilar avg 37.3/11.8 PSV/EDV. m/sec. Right hilar acceleration time 50 Left Renal Dimensions m/sec. Left kidney size 10.04 cm . Right Renal Dimensions Left cortical dimension 1.55 cm . Right kidney size 10.33 cm . Right cortical dimension 1.49 cm . Aorta Proximal abdominal aorta 1.50 x 1.52 cm . Proximal abdominal aorta peak systolic velocity is 88.2 cm/sec . Distal abdominal aorta 1.30 x 1.30 cm . Distal abdominal aorta peak systolic velocity is 64.3 cm/sec . Interpretation Summary <60% stenosis bilateral renal arteries Right renal length 10.33cm Left renal length 10.04cm Maximal aortic dimensions proximally at 1.5 x 1.52cm Ordering Physician: Laura Vidales Referring Physician: Edgar Crooks Chi Performed By: Prema Nevarez
--- NOTE | 2019-11-21 09:02 | ECHOD_ITS ---
Reason For Study: HTN Procedure This was a 2D Doppler, Color Flow transthoracic echocardiogram. Exam performed portable in patient room. Left Ventricle Normal LV size. The estimated ejection fraction is 75 %. Unable to assess diastolic dysfunction. No regional wall motion abnormalities noted. Right Ventricle Normal RV size. Normal systolic function. Atria The left atrium is moderately enlarged. Normal right atrium. No doppler evidence for ASD. Mitral Valve There is no mitral valve stenosis. Mild (1+) mitral valve insufficiency. Tricuspid Valve There is no tricuspid stenosis. Trivial tricuspid valve insufficiency. Pulmonary artery systolic pressure is 30 mmHg. Aortic Valve Moderate diffuse aortic valve thickening. Mild to moderate aortic stenosis. No aortic valve insufficiency. Pulmonic Valve There is no pulmonic valvular stenosis. Trivial pulmonic valve insufficiency. Great Vessels Normal aortic root. Pericardium/Pleural No pericardial effusion. MMode/2D Measurements & Calculations LVIDd: 2.7 cm IVSd: 1.7 cm LVOT diam: 2.1 cm LVIDs: 1.5 cm LVPWd: 1.6 cm LVOT area: 3.3 cm2 RVDd: 4.2 cm FS: 42.6 % Ao root diam: 3.1 cm LAV(MOD-bp): 62.7 ml LA A4 area: 18.2 cm2 LAV(MOD-bp) Indexed: 35.6 ml/m2 LAV(MOD-sp2): 53.3 ml LAV(MOD-sp4): 59.2 ml LA dimension(2D): 4.9 cm RA A4 area: 9.1 cm2 Time Measurements MV dec time: 0.12 sec Doppler Measurements & Calculations MV E max isauro: 73.3 cm/sec Lat Peak E' Isauro: 4.3 cm/sec Med Peak E' Isauro: 4.1 cm/sec MV A max isauro: 135.3 cm/sec E/E' lat: 17.0 E/E' med: 17.8 MV E/A: 0.54 MV V2 max: 166.5 cm/sec MV P1/2t max isauro: 91.9 cm/sec Ao V2 max: 280.9 cm/sec MV max P.1 mmHg MV P1/2t: 115.5 msec Ao max P.7 mmHg MV V2 mean: 87.3 cm/sec MV dec slope: 232.9 cm/sec2 Ao V2 mean: 200.7 cm/sec MV mean P.5 mmHg Ao mean P.0 mmHg MV V2 VTI: 37.8 cm MVA(P1/2t): 1.9 cm2 Ao V2 VTI: 58.1 cm MVA(VTI): 1.6 cm2 GARRET(I,D): 1.0 cm2 GARRET(V,D): 1.1 cm2 LV V1 max: 93.1 cm/sec SV(LVOT): 60.8 ml PA V2 max: 81.9 cm/sec LV V1 max P.5 mmHg LV V1 mean P.9 mmHg LV V1 mean: 65.8 cm/sec LV V1 VTI: 18.3 cm PI end-d isauro: 117.5 cm/sec TR max isauro: 244.1 cm/sec TR max P.8 mmHg Interpretation Summary The estimated ejection fraction is 75 %. Unable to assess diastolic dysfunction. The left atrium is moderately enlarged. Mild (1+) mitral valve insufficiency. Moderate diffuse aortic valve thickening. Mild to moderate aortic stenosis. Ordering Physician: Laura Vidales Referring Physician: Edgar Crooks Chi Performed By: Zioe Lucas, RDCS, RVT
--- NOTE | 2019-11-21 10:53 | CASEMGMT ---
MICHAEL MORILLO assessment: Face to Face with patient for initial transition planning/care coordination assessment. MICHAEL MORILLO introduced self and role at [facility], pt voices understanding and consents to assessment at this time. Pt is sitting up in chair in no distress at this time. Pt is A/Ox4 at this time and answers all questions appropriately at this time. Care providers, pharmacy, and demographics verified/updated at this time. Presentation: Dizzy, MAYBERRY, 'doesn't feel right' for past hour Admitting dx: Hypertensive emergency PCP: Valeriy Specialists: Jessica cardio [facility]erred [facility]acy: [facility] Insurance: [employer] A/B, [employer] Prescription Benefit: None but daughter is looking into getting Rx coverage for pt and is agreeable to Rx assist info at this time. Sara SW aware, voices understanding. Living Will/HPOA: Pt believes that she has a LW/HPOA at home but states she will check. Pt declines AD info at this time. LNOK: Maria Victoria Méndez, daughter Living Arrangements: Pt states she lives in 1 story home and daughter lives in apartment above. Pt states no concerns at home at this time. Pt states is independent at home with ADL's. Transportation: Pt states drives self and states no transportation concerns at this time. DME/HHC: Pt states has grab bars in shower and a bp cuff. Pt declines need for any further DME at this time. Pt states no hx of HHC or SNF in the past. Pt states no concerns with going home at time of discharge. Pt states is retired. Pt states does not smoke cigarettes or drink ETOH. Pt voices no further concerns/needs at this time. CM to follow for any further discharge planning/needs. Advised pt to ask for CM if any further questions/concerns/needs arise, voices understanding. Pt Goal: Home [place] MICHAEL MORILLO
--- NOTE | 2019-11-21 11:40 | CASEMGMT ---
Per RN CM patient does not have insurance coverage for medications. SW spoke with patient and her daughter giving them information on [employer]cription [employer], needymeds.org, Medicare's prescription assistance information, and information on [place] [facility] Insurance Information Program (OSHIIP). Vaishali MCKEON TEAM FOREMAN
--- NOTE | 2019-11-21 13:24 | PCM.PROGNOTE ---
<FlashLaura GUIDE ESCORT - Last Filed: 11/21/19 13:34> Patient Problems: Active and Suspected Problems (Last Reviewed 11/21/19 @ 05:[address] Candido Machado MD) Hypertensive emergency (Acute) Subjective: Patient seen and examined. Complains of ongoing dizziness. Denies further headache. Denies chest pain, shortness of breath. States her blood pressure has been an ongoing issue and fluctuates however states it has not been as high as it was on admission. - Physical Exam Vitals/I&O's: Vital Signs Temp Pulse Resp BP Pulse Ox 98.5 F 73 16 181/87 H 99 11/21/19 08:20 11/21/19 11:00 11/21/19 08:20 11/21/19 08:20 11/21/19 08:20 Oxygen Delivery Method Room Air Weight: 167 lb 1.766 oz Body Mass Index (BMI) 30.5 Intake and Output for Last 24 Hours 11/19/19 11/20/19 11/21/19 23:59 23:59 23:59 Intake Total 0 / 0 480 / 480 Balance 0 / 0 480 / 480 General: Alert, Oriented x3, Cooperative HEENT: Atraumatic, PERRLA, EOMI, Normocephalic Neck: Supple, No JVD, Negative Carotid Bruits Lungs: Clear to auscultation, Normal air movement Cardiovascular: Regular rate, No murmurs Abdomen: Bowel Sounds Present, Soft, Non Tender Extremities: No clubbing, No cyanosis, No edema Skin: No rashes, No breakdown Musculoskeletal: No Tenderness to Palpation of Joints or Extremities Neurological: Cranial nerves II-XII grossly intact, Neuro grossly intact Psych/Mental Status: Normal Affect, Appropriate Laboratory Results 11/20/19 18:45: WBC 5.8, RBC 4.19 L, Hgb 13.6, Hct 41.3, MCV 98.6, MCH 32.5 H, MCHC 32.9, RDW Std Deviation 48.3 H, RDW Coeff of Heladio 13.4, Plt Count 271, MPV 11.1, Immature Gran % (Auto) 0.200, Neut % (Auto) 49.8, Lymph % (Auto) 38.7, [place] % (Auto) 8.9, Eos % (Auto) 1.9, Baso % (Auto) 0.5, Absolute Neuts (auto) 2.9, Absolute Lymphs (auto) 2.23, Nucleated RBC % 0 11/20/19 18:45: PT 18.3 H, INR 1.6, APTT 30.6 11/20/19 18:45: Sodium 137, Potassium 4.3, Chloride 106, Carbon Dioxide 27.0, Anion Gap 4 L, BUN 22 H, Creatinine 1.09 H, Estim Creat Clear Calc 30.39, Est GFR (MDRD) Af Amer 61, Est GFR (MDRD) Non-Af 51 L, BUN/Creatinine Ratio 20.2 H, Glucose 99, Calcium 9.5, Total Bilirubin 0.40, AST 30, ALT 23, Alkaline Phosphatase 73, Troponin I < 0.015, Total Protein 8.1, Albumin 3.6, Globulin 4.5 H, Albumin/Globulin Ratio 0.8 L, Lipase 175 11/21/19 05:58: Sodium 138, Potassium 3.6, Chloride 105, Carbon Dioxide 28.0, Anion Gap 5, BUN 19 H, Creatinine 0.86, Estim Creat Clear Calc 38.51, Est GFR (MDRD) Af Amer 81, Est GFR (MDRD) Non-Af 67, BUN/Creatinine Ratio 22.1 H, Glucose 88, Calcium 8.8 Current Medications Acetaminophen (Tylenol) 650 mg PO Q6H PRN PRN PRN Reason: Pain Score 1-10/Temp > 100.7 F Amlodipine Besylate (Norvasc) 5 mg PO DAILY [facility] Last Admin: 11/21/19 09:18 Dose: 5 mg Documented by: Atorvastatin Calcium (Lipitor) 10 mg PO QHS [facility] Cholecalciferol (Vitamin D (25mcg)) 5,000 unit PO DAILY [facility] Last Admin: 11/21/19 09:18 Dose: Not Given Documented by: Ibuprofen (Motrin) 400 mg PO Q6H PRN PRN PRN Reason: Pain Score 1-10/10 Last Admin: 11/21/19 00:37 Dose: 400 mg Documented by: Labetalol HCl (Trandate) 10 mg IV Q4H PRN PRN PRN Reason: SBP > 160 OR DBP > 120 Lisinopril (Zestril) 10 mg PO BID [facility] Last Admin: 11/21/19 09:18 Dose: 10 mg Documented by: Ondansetron HCl (Zofran) 4 mg IV Q8H PRN PRN PRN Reason: NAUSEA/VOMITING Sodium Chloride () 10 - 40 ml IV UD PRN PRN Reason: SALINE FLUSH Warfarin Sodium (Jantoven) 6 mg PO DAILY@1700 [facility] Medical Necessity - Tobacco Use Smoking Status: Never smoker Assessment/Plan All Active Problems (Last Reviewed 11/21/19 @ 05:[address] Candido Machado MD) Hypertensive emergency (Acute) Chest pain (Resolved) 1. Hypertensive emergency-remains elevated. Previous echocardiogram December 2017 demonstrated an EF of 65%, mild mitral valve insufficiency, mild tricuspid valve insufficiency, mild aortic stenosis, mild pulmonic valve insufficiency. Repeat echo pending. Renal ultrasound pending. Check UA. Continue home lisinopril 10 mg twice daily. Added on amlodipine, increase to 10 mg daily. We will additionally add carvedilol 12.5 mg twice daily with further titration pending blood pressure monitoring. 2. Visual disturbances, dizziness-secondary to #1. MRI of brain with chronic changes. No acute infarct. 3. CAD with history of stents-continue statin, Coumadin, lisinopril. 4. Hyperlipidemia- continue statin. 5. History of DVT-on Coumadin. INR subtherapeutic. Home Coumadin regimen increased. Trend INR. DVT prophylaxis- Coumadin This patient was seen by GENA Cervantes under the supervision of Dr. An. <Zay An F - Last Filed: 11/21/19 17:15> - Physical Exam Vitals/I&O's: Vital Signs Temp Pulse Resp BP Pulse Ox 98.4 F 77 18 105/67 97 11/21/19 14:20 11/21/19 15:00 11/21/19 14:20 11/21/19 14:20 11/21/19 14:20 Oxygen Delivery Method Room Air Weight: 167 lb 1.766 oz Body Mass Index (BMI) 30.5 Intake and Output for Last 24 Hours 11/19/19 11/20/19 11/21/19 23:59 23:59 23:59 Intake Total 0 / 0 720 / 720 Balance 0 / 0 720 / 720 Laboratory Results 11/20/19 18:45: WBC 5.8, RBC 4.19 L, Hgb 13.6, Hct 41.3, MCV 98.6, MCH 32.5 H, MCHC 32.9, RDW Std Deviation 48.3 H, RDW Coeff of Heladio 13.4, Plt Count 271, MPV 11.1, Immature Gran % (Auto) 0.200, Neut % (Auto) 49.8, Lymph % (Auto) 38.7, [place] % (Auto) 8.9, Eos % (Auto) 1.9, Baso % (Auto) 0.5, Absolute Neuts (auto) 2.9, Absolute Lymphs (auto) 2.23, Nucleated RBC % 0 11/20/19 18:45: PT 18.3 H, INR 1.6, APTT 30.6 11/20/19 18:45: Sodium 137, Potassium 4.3, Chloride 106, Carbon Dioxide 27.0, Anion Gap 4 L, BUN 22 H, Creatinine 1.09 H, Estim Creat Clear Calc 30.39, Est GFR (MDRD) Af Amer 61, Est GFR (MDRD) Non-Af 51 L, BUN/Creatinine Ratio 20.2 H, Glucose 99, Calcium 9.5, Total Bilirubin 0.40, AST 30, ALT 23, Alkaline Phosphatase 73, Troponin I < 0.015, Total Protein 8.1, Albumin 3.6, Globulin 4.5 H, Albumin/Globulin Ratio 0.8 L, Lipase 175 11/21/19 05:58: Sodium 138, Potassium 3.6, Chloride 105, Carbon Dioxide 28.0, Anion Gap 5, BUN 19 H, Creatinine 0.86, Estim Creat Clear Calc 38.51, Est GFR (MDRD) Af Amer 81, Est GFR (MDRD) Non-Af 67, BUN/Creatinine Ratio 22.1 H, Glucose 88, Calcium 8.8 11/21/19 15:00: Urine Color Yellow, Urine Clarity Clear, Urine pH 7.0, Ur Specific [place] 1.010, Urine Protein Negative, Urine Glucose (UA) Normal, Urine Ketones Negative, Urine Occult Blood Negative, Urine Nitrite Negative, Urine Bilirubin Negative, Urine Urobilinogen Normal, Ur Leukocyte Esterase 25 H, Urine RBC 0 SEEN, Urine WBC 0 SEEN, Ur Squamous Epith Cells 0 SEEN, Urine Bacteria 0 SEEN, Urine Mucus 0 SEEN Current Medications Acetaminophen (Tylenol) 650 mg PO Q6H PRN PRN PRN Reason: Pain Score 1-10/Temp > 100.7 F Amlodipine Besylate (Norvasc) 10 mg PO DAILY [facility] Atorvastatin Calcium (Lipitor) 10 mg PO QHS [facility] Carvedilol (Coreg) 3.25 mg PO BID [facility] Cholecalciferol (Vitamin D (25mcg)) 5,000 unit PO DAILY [facility] Last Admin: 11/21/19 09:18 Dose: Not Given Documented by: Ibuprofen (Motrin) 400 mg PO Q6H PRN PRN PRN Reason: Pain Score 1-10/10 Last Admin: 11/21/19 00:37 Dose: 400 mg Documented by: Labetalol HCl (Trandate) 10 mg IV Q4H PRN PRN PRN Reason: SBP > 160 OR DBP > 120 Lisinopril (Zestril) 10 mg PO BID [facility] Last Admin: 11/21/19 09:18 Dose: 10 mg Documented by: Ondansetron HCl (Zofran) 4 mg IV Q8H PRN PRN PRN Reason: NAUSEA/VOMITING Sodium Chloride () 10 - 40 ml IV UD PRN PRN Reason: SALINE FLUSH Warfarin Sodium (Jantoven) 6 mg PO DAILY@1700 [facility] Addendum: Dr. An I personally examined the patient and reviewed the chart. I agree with the above. 84-year-old female presents from home with hypertensive emergency. On presentation to the ER she was found to have a systolic blood pressure of 251/123. An echo and an renal ultrasound are pending. She did have an MRI for headache which was unremarkable. She says that her headache has resolved however she is still a little bit dizzy. At home she states that she takes lisinopril 10 mg p.o. twice daily. Here she had Norvasc added to her lisinopril. We will continue to monitor her blood pressure and make any further medication adjustments as necessary. Inpatient E&M: 00745 Subs Hosp L2
[2019-11-21 15:26] LABS: Bacteria 0 SEEN /hpf (None Seen); Mucous, Urine 0 SEEN /hpf (<or=2+); Red Blood Cells-Urine 0 SEEN /hpf (0-5); Squamous Epithelial Cells - UA 0 SEEN /hpf (5-10); White Blood Cells 0 SEEN /hpf (0-5)
[2019-11-21 15:31] LABS: Color, Urine Yellow (Yellow); Glucose, Dipstick Normal (Normal); Ketone-Dipstick Negative (Negative); Leukocyte Esterase-Dipstick 25 /ul (Negative); Nitrite-Dipstick Negative (Negative); Occult Blood-Urine Negative /ul (Negative); Protein-Dipstick Negative (Negative); Urine Bilirubin Dipstick Negative (Negative); Urine Clarity Clear (Clear); Urine Urobilinogen Normal (Normal)
[2019-11-21] MEDS: Atorvastatin Calcium 10 MG Tablet PO (21:29)
[2019-11-21] MEDS: Carvedilol 3.125 MG TABLET 3.25 MG PO (21:30)
[2019-11-22 03:00] VITALS: PULSE 65
[2019-11-22 03:25] VITALS: BP 129/72; PULSE 70; RESP 14; TEMP 36.8; O2SAT 96
[2019-11-22 06:56] LABS: Prothrombin Time (Protime)PT. 22.1 SECONDS (11.7-14.9)
[2019-11-22 07:00] VITALS: PULSE 83
[2019-11-22 08:42] VITALS: BP 102/58; PULSE 86; RESP 18; TEMP 36.5; O2SAT 98
[2019-11-22 09:00] VITALS: BP 116/69; PULSE 81; RESP 18; TEMP 36.4; O2SAT 98
[2019-11-22] MEDS: Lisinopril 10 MG Tablet PO (09:07)
[2019-11-22] MEDS: Carvedilol 3.125 MG TABLET PO (09:07)
[2019-11-22] MEDS: amLODIPine 10 MG Tablet PO (09:08)
--- NOTE | 2019-11-22 09:53 | DCINST_ITS ---
- Discharge Diagnoses Current Active Problems: Current Active and Chronic Problems (Last Reviewed 11/21/19 @ 05:[address] Candido Machado MD) Hypertensive emergency (Acute) You will use the following diet at home:: Cardiac Your food should be the consistency of: Regular Your liquids should be the consistency of: Regular/Thin Discharge Activity: Return to Normal Activity Allergies/Adverse Reactions: Allergies azithromycin Allergy (Severe, Verified 08/24/19 23:03) Other per pt impairs kidney function and she was unable to walk for 1 week pravastatin Adverse Reaction (Severe, Verified 08/24/19 23:03) mylagias Medications to take at Discharge Warfarin [Coumadin] 4 mg PO DAILY 06/12/13 Cholecalciferol (Vitamin D3) [Vitamin D3] 5,000 unit PO DAILY 12/12/17 Ubidecarenone [Co Q-10] 200 mg PO DAILY 12/12/17 Nitroglycerin 0.4 mg SUBLINGUAL Q5M PRN #30 tab.subl 12/13/17 atorvastatin 10 mg tablet 10 mg PO DAILY #90 tab 01/25/19 turmeric 400 mg capsule 400 mg PO DAILY cap 01/25/19 lisinopril 10 mg tablet 10 mg PO BID tab 07/26/19 Amlodipine [Norvasc] 10 mg PO DAILY #30 tab 11/22/19 Carvedilol [Coreg (Beta Brandon)] 3.125 mg PO BID #60 tab 11/22/19 The following prescriptions were given: Carvedilol [Coreg (Beta Brandon)] 3.125 mg PO BID #60 tab Transmission Status: Pending to [id number] Amlodipine [Norvasc] 10 mg PO DAILY #30 tab [facility]: [id number] Primary Care Physician: Edgar Crooks Chi, MD [Primary Care Provider] - Please follow up with your Primary Care Physician in: 1-2 weeks Test Results: Test results from this visit will be discussed in further detail at your follow- up appointment, if applicable. Please Follow Up With: Douglas Padilla MD When: as directed Proposed Discharge Date: 11/22/19
[2019-11-22 10:12] VITALS: BP 116/69; PULSE 81; RESP 18; TEMP 36.4; O2SAT 98
--- NOTE | 2019-11-22 12:20 | DS.PCM_ITS ---
<Erik El - Last Filed: 11/22/19 12:20> Discharge Date and Diagnosis Date of Admission: 11/20/19 Date of Discharge: 11/22/19 - Primary Discharge Diagnosis Acute Problems: Hypertensive emergency - Secondary Discharge Diagnosis Chronic Problems: Chronic Problems (Last Reviewed 11/21/19 @ 05:[address] Candido Machado MD) Atherosclerotic heart disease of [place] coronary artery without angina pectoris (Chronic) [id number]-[id number]-Bdes-Mid RCA w/ 4.0 x 18 mm Penta Stent 06/2001 History of coronary artery stent placement (Chronic 06/19/01) [id number]-BGE-[id number]-Mid RCA w/ 4.0 x 18 mm Penta Stent 06/2001 Nonrheumatic aortic (valve) stenosis (Chronic) Essential (primary) hypertension (Chronic) Hyperlipidemia (Chronic) Deep vein thrombosis (Chronic) 15 years ago Hospital Course and Treatment Imaging Results: CT/Brain/Head without Contrast IMPRESSION: Chronic involutional changes of the brain. MRI/Brain without Contrast IMPRESSION: Involutional changes of the brain, as described above. No acute infarct. 2D TTE: Interpretation Summary The estimated ejection fraction is 75 %. Unable to assess diastolic dysfunction. The left atrium is moderately enlarged. Mild (1+) mitral valve insufficiency. Moderate diffuse aortic valve thickening. Mild to moderate aortic stenosis. Renal artery US: Interpretation Summary <60% stenosis bilateral renal arteries Right renal length 10.33cm Left renal length 10.04cm Maximal aortic dimensions proximally at 1.5 x 1.52cm Operations: None Procedures: 2-D Echocardiogram Summary of Care Provided: Hospital course: The patient is a 84 year old F with pmhx as above who presented to the emergency room with complaints of blurry vision started several hours before presentation to the emergency room with associated headache and dizziness. In the ER she had markedly elevated blood pressure at 251/123. CT of the brain was negative. She was given IV labetalol in the ER. She was admitted to the PCU and her lisinopril was continued and amlodipine was started. MRI of the brain was negative. Echocardiogram was obtained with results as above. Renal artery ultrasound was obtained with results as above. She had good pressure control with lisinopril, amlodipine, and Coreg. Prescriptions for amlodipine and Coreg were given at discharge. She was discharged home in stable condition and will need follow-up with her PCP in 1 to 2 weeks, and follow-up with cardiology as directed. This patient was seen by Erik El PA-C under the supervision of Doctor Juve. [] - Physical Exam Vitals/I&O's: Vital Signs Temp Pulse Resp BP Pulse Ox 97.6 F L 81 18 116/69 98 11/22/19 10:12 11/22/19 10:12 11/22/19 10:12 11/22/19 10:12 11/22/19 10:12 Oxygen Delivery Method Room Air Weight: 167 lb 1.766 oz Body Mass Index (BMI) 30.5 Intake and Output for Last 24 Hours 11/20/19 11/21/19 11/22/19 23:59 23:59 23:59 Intake Total 0 / 0 960 / 1260 550 / 550 Output Total 0 / 0 Balance 0 / 0 960 / 1260 550 / 550 General: Alert, Oriented x3, Cooperative HEENT: Atraumatic, PERRLA, EOMI, Normocephalic Neck: Supple, No JVD, Negative Carotid Bruits Lungs: Clear to auscultation, Normal air movement Cardiovascular: Regular rate, No murmurs Abdomen: Bowel Sounds Present, Soft, Non Tender Extremities: No edema, Capillary Refill Less than 3 Seconds Skin: No rashes, No breakdown Musculoskeletal: No Tenderness to Palpation of Joints or Extremities Neurological: Cranial nerves II-XII grossly intact Psych/Mental Status: Normal Affect, Appropriate, Alert and oriented to time, place, person, mood and affect Laboratory Results 11/21/19 15:00: Urine Color Yellow, Urine Clarity Clear, Urine pH 7.0, Ur Specific [place] 1.010, Urine Protein Negative, Urine Glucose (UA) Normal, Urine Ketones Negative, Urine Occult Blood Negative, Urine Nitrite Negative, Urine Bilirubin Negative, Urine Urobilinogen Normal, Ur Leukocyte Esterase 25 H, Urine RBC 0 SEEN, Urine WBC 0 SEEN, Ur Squamous Epith Cells 0 SEEN, Urine Bacteria 0 SEEN, Urine Mucus 0 SEEN 11/22/19 06:34: PT 22.1 H, INR 2.0 Discharge Diet: Low fat/ Low Cholesterol, 2000 mg Sodium Diet Discharge Activity: Return to Normal Activity Home Medications: Medications to take at Discharge Warfarin [Coumadin] 4 mg PO DAILY 06/12/13 Cholecalciferol (Vitamin D3) [Vitamin D3] 5,000 unit PO DAILY 12/12/17 Ubidecarenone [Co Q-10] 200 mg PO DAILY 12/12/17 Nitroglycerin 0.4 mg SUBLINGUAL Q5M PRN #30 tab.subl 12/13/17 atorvastatin 10 mg tablet 10 mg PO DAILY #90 tab 01/25/19 turmeric 400 mg capsule 400 mg PO DAILY cap 01/25/19 lisinopril 10 mg tablet 10 mg PO BID tab 07/26/19 Amlodipine [Norvasc] 10 mg PO DAILY #30 tab 11/22/19 Carvedilol [Coreg (Beta Brandon)] 3.125 mg PO BID #60 tab 11/22/19 Following Prescriptions Were Given to Patient: Carvedilol [Coreg (Beta [place])] 3.125 mg PO BID #60 tab Transmission Status: Received by [id number] Amlodipine [Norvasc] 10 mg PO DAILY #30 tab Transmission Status: Received by [id number] Primary Care Physician: Edgar Crooks Chi, MD [Primary Care Provider] - Please follow up with your Primary Care Physician in: 1-2 weeks Please Follow Up With: Douglas Padilla MD When: as directed Disposition: Home Minutes spent on discharge:: 35 Patient Condition:: Stable Medical Necessity - Tobacco Use Smoking Status: Never smoker Meaningful Use Info Meaningful Use Diagnoses (Choose all that apply): None applicable <NabeelnallelyZay F - Last Filed: 11/22/19 13:55> Discharge Date and Diagnosis - Secondary Discharge Diagnosis Chronic Problems: Chronic Problems (Last Reviewed 11/21/19 @ 05:[address] Candido Machado MD) Atherosclerotic heart disease of [place] coronary artery without angina pectoris (Chronic) OPT-QEZ-Xodu-Mid RCA w/ 4.0 x 18 mm Penta Stent 06/2001 History of coronary artery stent placement (Chronic 06/19/01) [id number]-[id number]-Mid RCA w/ 4.0 x 18 mm Penta Stent 06/2001 Nonrheumatic aortic (valve) stenosis (Chronic) Essential (primary) hypertension (Chronic) Hyperlipidemia (Chronic) Deep vein thrombosis (Chronic) 15 years ago Hospital Course and Treatment Summary of Care Provided: The patient is a 84 year old F [] - Physical Exam Vitals/I&O's: Vital Signs Temp Pulse Resp BP Pulse Ox 97.6 F L 81 18 116/69 98 11/22/19 10:12 11/22/19 10:12 11/22/19 10:12 11/22/19 10:12 11/22/19 10:12 Oxygen Delivery Method Room Air Weight: 167 lb 1.766 oz Body Mass Index (BMI) 30.5 Intake and Output for Last 24 Hours 11/20/19 11/21/19 11/22/19 23:59 23:59 23:59 Intake Total 0 / 0 960 / 1260 550 / 550 Output Total 0 / 0 Balance 0 / 0 960 / 1260 550 / 550 Laboratory Results 11/21/19 15:00: Urine Color Yellow, Urine Clarity Clear, Urine pH 7.0, Ur Specific [place] 1.010, Urine Protein Negative, Urine Glucose (UA) Normal, Urine Ketones Negative, Urine Occult Blood Negative, Urine Nitrite Negative, Urine Bilirubin Negative, Urine Urobilinogen Normal, Ur Leukocyte Esterase 25 H, Urine RBC 0 SEEN, Urine WBC 0 SEEN, Ur Squamous Epith Cells 0 SEEN, Urine Bacteria 0 SEEN, Urine Mucus 0 SEEN 11/22/19 06:34: PT 22.1 H, INR 2.0 Addendum: Dr. An I personally examined the patient and reviewed the chart. I agree with the above. 84-year-old female presents from home with hypertensive emergency. On presentation to the ER she was found to have a systolic blood pressure of 251/123. An echo and an renal ultrasound are pending. She did have an MRI for headache which was unremarkable. She says that her headache has resolved however she is still a little bit dizzy. At home she states that she takes lisinopril 10 mg p.o. twice daily. Here she had Norvasc added to her lisinopril. We will continue to monitor her blood pressure and make any further medication adjustments as necessary. 11/22/2019: Feeling much better today, no headache or blurry vision. Her blood pressure is under much better control today with the addition of Norvasc and Coreg. I discussed with her the need to follow-up with her PCP and cardiology. Echo was unremarkable, UA also did not show any protein in her urine, and renal artery duplex was also normal. I discussed with her the plan for discharge today and she expressed understanding the risks and benefits of going home and she would like to go home today. Inpatient E&M: 24435 Disch Hosp
== END 2019-11-22 09:54 | disposition home or self-care (01) | DRG 305 ==
LOC: ED 22:28 → PCU 23:15
PROVIDERS: Nurse Practitioner Family; Admitting Provider Hospitalist; Emergency Provider Emergency Medicine; PCP Family Medicine Geriatric Medicine; Visit Provider Family Medicine
DX: I16.1 Hypertensive emergency (principal); I10 Essential (primary) hypertension; I25.10 Atherosclerotic heart disease of native coronary artery without angina pectoris; E78.00 Pure hypercholesterolemia, unspecified; Z86.718 Personal history of other venous thrombosis and embolism; I35.0 Nonrheumatic aortic (valve) stenosis; E78.5 Hyperlipidemia, unspecified; Z95.5 Presence of coronary angioplasty implant and graft; Z79.01 Long term (current) use of anticoagulants; Z79.899 Other long term (current) drug therapy
CPT/HCPCS: 36415; 70450; 70551; 80048; 80053; 81001; 83690; 84484; 85025; 85610; 85730; 93005; 93306; 93975; 97802; 99285; A4216

== ENCOUNTER 2019-12-24 22:42 | Emergency (ER) | payer MEDICARE, OTHER, SELFPAY ==
[2019-11-20 23:45] VITALS: BMI 30.5
[2019-12-24 22:43] VITALS: BP 215/129; PULSE 88; RESP 15; TEMP 36.8; O2SAT 97; BMI 31.1
[2019-12-24 23:56] VITALS: BP 186/98; PULSE 76; RESP 18; O2SAT 97
--- NOTE | 2019-12-25 00:24 | ED.DCSUM_ITS ---
History of Present Illness Chief Complaint: Hypertension Narrative: Patient presents with hypertension. She is currently asymptomatic, she noticed her blood pressure at home being 220s over 120. She had recently been decreased from her blood pressure medications, she was apparently taken off her beta- godfrey and her amlodipine. She however did take them prior to arrival and now her blood pressure is improving. She has no chest pain shortness of breath fever or chills. The chief complaint says shortness of breath, patient denies any shortness of breath she does complain of some cough that she had just noticed. Past Medical History - Allergies and Home Meds Allergies/Adverse Reactions: Allergies azithromycin Allergy (Severe, Verified 12/24/19 22:43) Other per pt impairs kidney function and she was unable to walk for 1 week pravastatin Adverse Reaction (Severe, Verified 12/24/19 22:43) mylagias Primary Care Physician: Edgar Crooks Chi, MD [Primary Care Provider] - Past Medical History: - - Hypertension, history of Covid which now resolved Surgical History: - - stent Smoking Status: Never smoker - Family History Maternal Family History: Family History (Last Reviewed 11/21/19 @ 05:[address] Candido Machado MD) Other CVA (cerebral vascular accident) Family History: Reports: - - Her mother through childbirth. Review of Systems All systems negative except as indicated General: Denies: Fever Eyes: Denies: Visual changes - bilaterally Cardiovascular: Denies: Chest pain Respiratory: Denies: Dyspnea, Cough Gastrointestinal: Denies: Abdominal pain, Nausea Genitourinary: Denies: Dysuria Musculoskeletal: Denies: Myalgias Skin: Denies: Rash Neurological: Denies: Headache, Weakness Hematologic: Denies: Easy bruising Physical Exam Vital Signs/Narrative: Vital Signs Temp Pulse Resp BP Pulse Ox 12/24/19 23:56 76 18 186/98 H 97 12/24/19 22:43 98.3 F 88 15 215/129 H 97 General: Well nourished, Well developed Eyes: Perrl ENT: Moist mucous membranes Cardiovascular: Regular rate, Regular rhythm Respiratory: No distress, CTA bilaterally Abdomen: Soft, Nontender Back: Nontender, Normal Inspection Extremities: Nontender, No edema Skin: Normal color Neurological: Alert, Normal Strength Diagnostic/Tx/Re-eval - Medical Decision Making His blood pressure came down by itself, she did not require any medications. She appears well she is asymptomatic I believe she can be safely discharged to follow-up with PCP. ED Disposition - Plan for ED Patient: Disposition: Home or Assisted Living Diagnosis: Hypertension Instructions: ED Hypertension Established Referrals: Edgar Crooks Chi, MD [Primary Care Provider] - 3-5 Days
[2019-12-25 00:46] LABS: Absolute Lymphocyte Count 1.05 X10^3/uL (0.83-4.51); Absolute Neutrophil Count 3.3 X10^3/uL (2.0-7.7); Basophil# 0.03 X10^3/uL; Basophil% 0.6 % (0-1); Eosinophil# 0.08 X10^3/uL; Eosinophils% 1.6 % (0-5); Hemoglobin 12.7 g/dL (12.0-15.0); Lymphocyte # 1.05 X10^3/ul (4.0); Lymphocyte % 21.3 % (19-41); Mean Corp Hgb Conc 32.6 g/dL (32-36); Mean Corpuscular Hgb 32.2 pg (27.0-32.0); Mean Corpuscular Volume 98.7 fL (81-99); Mean Platelet Vol. 10.7 fl (6.2-12.0); Monocyte# 0.48 X10^3/uL; Monocyte% 9.7 % (0-10); NRBC Flagged by Analyzer 0 % (0-5); Neutrophil # 3.28 X10^3/uL (2.7-7.7); Neutrophil % 66.6 % (47-70); Platelet Count 240 K/mm3 (150-450); RBC Distribution Width CV 13.4 % (11.6-14.6); RBC Distribution Width SD 48.3 fl (35.1-43.9); Red Blood Count 3.95 M/mm3 (4.2-5.4); White Blood Count 4.9 K/mm3 (4.4-11.0)
[2019-12-25 01:00] VITALS: RESP 17
[2019-12-25 01:17] VITALS: BP 151/71; PULSE 84; RESP 18; O2SAT 98
== END 2019-12-25 01:21 | disposition home or self-care (01) ==
PROVIDERS: Emergency Provider Emergency Medicine; PCP Family Medicine Geriatric Medicine
DX: I10 Essential (primary) hypertension (principal); Z86.19 Personal history of other infectious and parasitic diseases; Z79.899 Other long term (current) drug therapy
CPT/HCPCS: 85025; 99283; A4216

== ENCOUNTER 2019-12-31 00:23 | Emergency (ER) | payer MEDICARE, OTHER, SELFPAY ==
[2019-12-31 00:24] VITALS: BP 240/123; PULSE 95; RESP 18; TEMP 36.2; O2SAT 96; BMI 31.1
--- NOTE | 2019-12-31 00:46 | EKG12_ITS ---
Test Reason : HTN Blood Pressure : / mmHG Vent. Rate : 073 BPM Atrial Rate : 073 BPM P-R Int : 180 ms QRS Dur : 090 ms QT Int : 384 ms P-R-T Axes : 053 043 044 degrees QTc Int : 423 ms Normal sinus rhythm Normal ECG Confirmed by GENEVIEVE PAEZ, ROSANGELA ([id number]), film editor supervisor CANDIE PEMBERTON ([id number]) on 01/01/2020 10:35:08 AM Referred By: LATRELL Confirmed By:ROSANGELA VALLEJO MD
--- NOTE | 2019-12-31 00:48 | ED.DCSUM_ITS ---
- ER Visit Summary Date of Service: 12/31/19 Chief Complaint: Hypertension History of Present Illness: The patient is a 84 F who presents with hypotension that became worse tonight. Patient was seen here 5 days ago. Patient states she took a dose of a beta-godfrey and amlodipine just prior to arrival 5 days ago when she was seen here. Patient states her blood pressure improved and she was discharged. Patient states she has an appointment in the morning with her primary care physician for a follow-up appointment with this. Patient states tonight she felt like she was having palpitations and checked her blood pressure and noticed it was high. Patient admits to some generalized dizziness. Patient denies any chest pain or shortness of breath. Patient denies any nausea or vomiting. Physical Examination: Vital signs are stable except for an elevated blood pressure 240/123. Patient is afebrile. Patient is in no acute distress. Oral mucosa is pink and moist. Neck is supple. Trachea is midline. There is no JVD noted. Heart was regular rate and rhythm. Lungs are clear and equal bilaterally. Abdomen is soft. Bowel sounds are normal. There is no tenderness. There is no rebound or guarding noted. Skin is warm dry. Cranial nerves II through XII are intact. There are no focal motor or sensory deficits noted. Extremities are intact. There is no calf tenderness or edema. Test Results: EKG shows normal sinus rhythm with a rate of 73. There are no acute ST or T wave changes. This was unchanged compared to previous EKG dated 11/20/2019. Portable chest x-ray was obtained. There is no acute cardiopulmonary process. This was interpreted by the radiologist and reviewed by myself. CBC, comprehensive metabolic profile, troponin were obtained and were within normal limits. Emergency Department Course and Treatment: Patient was given a dose of labetalol here. Patient's blood pressure improved to 154/78. On reevaluation patient felt like her blood pressure was starting to go back up. Patient's blood pressure at that time was 188 systolic. Patient was given a dose of clonidine. Patient was instructed to follow-up with her primary care physician today as scheduled. Patient and family understood and was agreeable with the plan. All questions were answered. Disposition: Discharge home Impression: Hypertension This note was generated with [employer] dictation software. It may contain incorrect words, spelling, and punctuation that were not noted in review of the chart prior to signing ED Disposition - Plan for ED Patient: Disposition: Home or Assisted Living Diagnosis: Hypertension Instructions: ED High Blood Pressure Established Out of Control Referrals: Edgar Crooks Chi, MD [Primary Care Provider] - Keep Deirdre appointment
[2019-12-31 01:01] LABS: Absolute Lymphocyte Count 2.07 X10^3/uL (0.83-4.51); Absolute Neutrophil Count 2.9 X10^3/uL (2.0-7.7); Basophil# 0.02 X10^3/uL; Basophil% 0.4 % (0-1); Eosinophil# 0.11 X10^3/uL; Hematocrit 40.6 % (37-47); Hemoglobin 13.5 g/dL (12.0-15.0); Lymphocyte # 2.07 X10^3/ul (4.0); Mean Corp Hgb Conc 33.3 g/dL (32-36); Mean Corpuscular Hgb 32.8 pg (27.0-32.0); Mean Corpuscular Volume 98.5 fL (81-99); Mean Platelet Vol. 10.6 fl (6.2-12.0); Monocyte% 8.9 % (0-10); NRBC Flagged by Analyzer 0 % (0-5); Neutrophil # 2.89 X10^3/uL (2.7-7.7); Neutrophil % 51.5 % (47-70); Platelet Count 247 K/mm3 (150-450); RBC Distribution Width CV 13.2 % (11.6-14.6); Red Blood Count 4.12 M/mm3 (4.2-5.4); White Blood Count 5.6 K/mm3 (4.4-11.0)
[2019-12-31] MEDS: Labetalol (Prefilled) 20 MG/4 ML IV (01:01)
[2019-12-31 01:05] VITALS: BP 229/117; PULSE 63; RESP 15
--- NOTE | 2019-12-31 01:18 | RAD_ITS ---
STUDY: X-RAY CHEST REASON FOR EXAM: Female, 84 years old. Hypertension. TECHNIQUE: AP portable chest. COMPARISON: August 25, 2019. FINDINGS: The lungs are clear and expanded. There is no demonstrated pleural abnormality. Normal size heart. Normal mediastinum and fermín. Normal visualized pulmonary arteries. Atherosclerotic calcification of the aortic arch. Normal visualized thoracic spine. Normal visualized ribs, clavicles, and shoulders. There is no demonstrated abnormality of the visualized soft tissue structures of the upper abdomen. RAD/Chest 1 View (Portable) IMPRESSION: No acute cardiopulmonary disease. Electronically Signed: Joni Gramajo MD at 1:33 EDT , Service support ,
[2019-12-31 01:26] LABS: ALB/GLOB Ratio 0.9 RATIO (0.9-2.4); AST(SGOT) 20 U/L (15-37); Alanine Aminotransfer ALT/SGPT 21 U/L (13-56); Albumin, Serum 3.6 g/dL (3.2-5.0); Alkaline Phosphatase 70 U/L (45-117); Anion Gap 5 (5-15); BUN 20 mg/dL (7-18); BUN/Creat Ratio 20.8 RATIO (10-20); Calcium,Total 9.4 mg/dL (8.5-10.1); Chloride 105 mmol/L (98-107); Creatinine, Serum 0.96 mg/dL (0.55-1.02); EST Glomerular Filtration Rate 59 mL/min (>60); Est Glom Filt Rate - Afr Amer 71 mL/min (>60); Globulin 4.1 g/dL (2.2-4.2); Glucose 98 mg/dL (74-106); Protein, Total 7.7 g/dL (6.4-8.2); Sodium Level 139 mmol/L (136-145)
[2019-12-31 01:30] VITALS: BP 168/83; PULSE 65; RESP 14; O2SAT 96
[2019-12-31 02:12] VITALS: BP 154/78; PULSE 64; RESP 17; O2SAT 94
[2019-12-31 03:21] VITALS: BP 165/84; PULSE 60; RESP 17; O2SAT 98
[2019-12-31] MEDS: cloNIDine HCl 0.1 MG Tablet PO (03:33)
== END 2019-12-31 03:39 | disposition home or self-care (01) ==
PROVIDERS: Emergency Provider Emergency Medicine; PCP Family Medicine Geriatric Medicine
DX: I10 Essential (primary) hypertension (principal); I25.10 Atherosclerotic heart disease of native coronary artery without angina pectoris; Z95.5 Presence of coronary angioplasty implant and graft; Z79.01 Long term (current) use of anticoagulants; Z79.899 Other long term (current) drug therapy
CPT/HCPCS: 71045; 80053; 84484; 85025; 93005; 96374; 99282; A4216

== ENCOUNTER → 2020-01-24 09:03 | Outpatient (CLI) | payer MEDICARE, OTHER, SELFPAY ==
[2019-12-31 00:24] VITALS: BMI 31.1
[2020-01-24 12:38] LABS: Absolute Lymphocyte Count 1.21 X10^3/uL (0.83-4.51); Basophil# 0.02 X10^3/uL; Basophil% 0.5 % (0-1); Eosinophil# 0.07 X10^3/uL; Eosinophils% 1.9 % (0-5); Hematocrit 38.2 % (37-47); Hemoglobin 12.3 g/dL (12.0-15.0); Lymphocyte # 1.21 X10^3/ul (4.0); Lymphocyte % 32.2 % (19-41); Mean Corp Hgb Conc 32.2 g/dL (32-36); Mean Corpuscular Hgb 32.4 pg (27.0-32.0); Mean Corpuscular Volume 100.5 fL (81-99); Mean Platelet Vol. 11.8 fl (6.2-12.0); Monocyte# 0.41 X10^3/uL; Monocyte% 10.9 % (0-10); NRBC Flagged by Analyzer 0 % (0-5); Neutrophil # 2.04 X10^3/uL (2.7-7.7); Neutrophil % 54.2 % (47-70); Platelet Count 230 K/mm3 (150-450); RBC Distribution Width CV 13.4 % (11.6-14.6); RBC Distribution Width SD 49.5 fl (35.1-43.9); White Blood Count 3.8 K/mm3 (4.4-11.0)
[2020-01-24 12:58] LABS: Vitamin D,25 Hydroxy 74.2 ng/mL
[2020-01-24 13:07] LABS: ALB/GLOB Ratio 0.9 RATIO (0.9-2.4); AST(SGOT) 19 U/L (15-37); Alanine Aminotransfer ALT/SGPT 19 U/L (13-56); Albumin, Serum 3.3 g/dL (3.2-5.0); Alkaline Phosphatase 60 U/L (45-117); Anion Gap 4 (5-15); BUN 19 mg/dL (7-18); BUN/Creat Ratio 19.7 RATIO (10-20); Calcium,Total 8.7 mg/dL (8.5-10.1); Chloride 104 mmol/L (98-107); Creatinine, Serum 0.96 mg/dL (0.55-1.02); EST Glomerular Filtration Rate 59 mL/min (>60); Est Glom Filt Rate - Afr Amer 71 mL/min (>60); Globulin 3.6 g/dL (2.2-4.2); Glucose 77 mg/dL (74-106); Potassium 4.4 mmol/L (3.5-5.1); Protein, Total 6.9 g/dL (6.4-8.2); Sodium Level 136 mmol/L (136-145)
== END ==
PROVIDERS: PCP Family Medicine Geriatric Medicine; Visit Provider Family Medicine Geriatric Medicine
DX: R53.83 Other fatigue (principal); E55.9 Vitamin D deficiency, unspecified
CPT/HCPCS: 36415; 80053; 82306; 84443; 85025

== ENCOUNTER 2020-02-28 13:16 | Emergency (ER) | payer MEDICARE, OTHER, SELFPAY ==
[2020-02-28 13:17] VITALS: BP 207/101; PULSE 73; RESP 18; TEMP 36.6; O2SAT 99; BMI 32.0
[2020-02-28 13:28] VITALS: BP 180/90
--- NOTE | 2020-02-28 13:33 | RAD_ITS ---
STUDY: X-RAY - PELVIS AND LEFT HIP REASON FOR EXAM: Female, 84 years old. Pain, no known injury. TECHNIQUE: 3 views of the pelvis and hip. COMPARISON: None. FINDINGS: There is a non-specific bowel gas pattern. A vascular stent is seen in the right external and common iliac arteries. Surgical clips are seen in the right groin. Normal bilateral iliac wings, sacroiliac joints and visualized sacrum. Normal bilateral superior and inferior pubic rami. There is narrowing with sclerosis of the pubic symphysis. Normal bilateral ischial tuberosities. Normal visualized femoral head. There is osteoarthritic spur formation of the acetabular rim. There is moderate articular joint space narrowing of the hip. RAD/HIP, UNI W/ Pelvis 2-3 Views IMPRESSION: Moderate degree of joint space narrowing involving the left hip joint. Prior vascular stent is seen in the right common and external iliac arteries. Electronically Signed: Dieudonne Amos, at 14:06 EST , Service support ,
--- NOTE | 2020-02-28 13:34 | ED.VIS.GEN ---
History of Present Illness Chief Complaint: Lower Extremity Injury Informant: Patient Onset: - - Pain for several months, worse since yesterday Timing: Waxes and wanes Current Severity: Mild Maximum Severity: Moderate Narrative: Patient presents secondary to left hip pain. She states she is had problems with that hip for some time, especially when she tries to lie on her left side. Yesterday she was working and when she stooped over noted increased pain in her hip. She did take some ibuprofen yesterday but has not taken anything today for pain. She denies paresthesias or weakness. Her leg has not given out on her. - Past Medical History (1) Atherosclerotic heart disease of [place] coronary artery without angina pectoris Status: Chronic Comment: PCJ-NBL-Dawn-Mid RCA w/ 4.0 x 18 mm Penta Stent 06/2001 (2) Deep vein thrombosis Status: Resolved Comment: 15 years ago (3) Essential (primary) hypertension Status: Chronic (4) History of coronary artery stent placement Status: Chronic Comment: UIC-TEH-Yrgf-Mid RCA w/ 4.0 x 18 mm Penta Stent 06/2001 (5) Hyperlipidemia Status: Chronic Past Medical History - Allergies and Home Meds Allergies/Adverse Reactions: Allergies azithromycin Allergy (Severe, Verified 02/28/20 13:19) Other per pt impairs kidney function and she was unable to walk for 1 week pravastatin Adverse Reaction (Severe, Verified 02/28/20 13:19) mylagias Primary Care Physician: Edgar Crooks Chi, MD [Primary Care Provider] - Prior records reviewed: Yes Surgical History: - - stent Lives: With Family Smoking Status: Never smoker - Family History Maternal Family History: Family History (Last Reviewed 11/21/19 @ 05:[address] Candido Machado MD) Other CVA (cerebral vascular accident) Family History: Reports: - - Her mother through childbirth. Review of Systems General: Denies: Chills, Fever Eyes: Denies: Visual changes - bilaterally ENT: Denies: Bilateral ear pain Cardiovascular: Denies: Chest pain Respiratory: Denies: Dyspnea, Cough Gastrointestinal: Denies: Abdominal pain Musculoskeletal: Reports: Extremity Pain. Denies: Back pain Skin: Denies: Wounds Neurological: Denies: Weakness, Parasthesia Hematologic: Denies: Easy bruising, Easy bleeding Allergy: Denies: Uticaria Physical Exam Vital Signs/Narrative: Vital Signs Temp Pulse Resp BP Pulse Ox 02/28/20 13:28 180/90 H 02/28/20 13:17 97.9 F 73 18 207/101 H 99 Inital Vital Signs reviewed: Yes General: Well nourished, Well developed Head: Normocephalic ENT: Moist mucous membranes Neck: Supple Cardiovascular: Regular rate, Regular rhythm Respiratory: No distress, CTA bilaterally Abdomen: Soft, Nontender Extremities: - - Mild pain of the greater trochanter of the left hip. Normal leg lengths. Full range of motion without difficulty. No significant peripheral edema. Strong distal pulses. Neurological: Alert, Oriented x3, Normal Strength, Normal Sensation Psychological: Normal affect Diagnostic/Tx/Re-eval Impressions Hip/Pelvis X-Ray 02/28/20 13:33 IMPRESSION: Moderate degree of joint space narrowing involving the left hip joint. Prior vascular stent is seen in the right common and external iliac arteries. Electronically Signed: Dieudonne Bette, at 14:06 EST , Service support , 02/28/20 13:33 HIP, UNI W/ Pelvis 2-3 Views [RAD] Stat - Medical Decision Making Pelvis and left hip x-rays are obtained. Per my review arthritic changes are noted. No acute fracture. Radiologist interpretation is also reviewed. Patient does not wish for anything for pain either here or as a prescription for home. She was advised to follow-up with her family physician or orthopedics if this continues to be a hindrance to her. She voices understanding and agreement. ED Disposition - Plan for ED Patient: Disposition: Home or Assisted Living Diagnosis: Strain of left hip, Arthritis Instructions: ED Hip Strain Referrals: Edgar Crooks Chi, MD [Primary Care Provider] - 10-14 Days if not better
[2020-02-28 14:28] VITALS: BP 166/105; PULSE 71; RESP 18
== END 2020-02-28 14:35 | disposition home or self-care (01) ==
PROVIDERS: Emergency Provider Emergency Medicine; PCP Family Medicine Geriatric Medicine
DX: S73.102A Unspecified sprain of left hip, initial encounter (principal); M16.12 Unilateral primary osteoarthritis, left hip; X58.XXXA Exposure to other specified factors, initial encounter; Y93.9 Activity, unspecified; Y92.9 Unspecified place or not applicable; I10 Essential (primary) hypertension; I25.10 Atherosclerotic heart disease of native coronary artery without angina pectoris; E78.5 Hyperlipidemia, unspecified; Z86.718 Personal history of other venous thrombosis and embolism; Z95.5 Presence of coronary angioplasty implant and graft; Z79.01 Long term (current) use of anticoagulants; Z79.899 Other long term (current) drug therapy
CPT/HCPCS: 73502; 99282

== ENCOUNTER → 2020-07-31 08:59 | Outpatient (CLI) | payer MEDICARE, OTHER, SELFPAY ==
[2020-06-19 08:29] VITALS: BMI 30.9
[2020-07-31 12:37] LABS: Absolute Lymphocyte Count 1.29 X10^3/uL (0.83-4.51); Absolute Neutrophil Count 2.1 X10^3/uL (2.0-7.7); Basophil# 0.03 X10^3/uL; Basophil% 0.8 % (0-1); Eosinophils% 2.6 % (0-5); Hematocrit 39.9 % (37-47); Hemoglobin 12.8 g/dL (12.0-15.0); Lymphocyte # 1.29 X10^3/ul (0.83-4.51); Mean Corp Hgb Conc 32.1 g/dL (32-36); Mean Corpuscular Hgb 32.1 pg (27.0-32.0); Mean Platelet Vol. 11.6 fl (6.2-12.0); Monocyte# 0.43 X10^3/uL; NRBC Flagged by Analyzer 0 % (0-5); Neutrophil # 2.05 X10^3/uL (2.7-7.7); Neutrophil % 52.3 % (47-70); Platelet Count 257 K/mm3 (150-450); RBC Distribution Width CV 13.6 % (11.6-14.6); RBC Distribution Width SD 50.3 fl (35.1-43.9); Red Blood Count 3.99 M/mm3 (4.2-5.4); White Blood Count 3.9 K/mm3 (4.4-11.0)
[2020-07-31 13:00] LABS: Vitamin D,25 Hydroxy 83.6 ng/mL
[2020-07-31 13:08] LABS: ALB/GLOB Ratio 0.8 RATIO (0.9-2.4); AST(SGOT) 28 U/L (15-37); Alanine Aminotransfer ALT/SGPT 23 U/L (13-56); Albumin, Serum 3.2 g/dL (3.2-5.0); Alkaline Phosphatase 62 U/L (45-117); Anion Gap 3 (5-15); BUN 16 mg/dL (7-18); BUN/Creat Ratio 18.6 RATIO (10-20); Calcium,Total 9.1 mg/dL (8.5-10.1); Chloride 104 mmol/L (98-107); Creatinine, Serum 0.86 mg/dL (0.55-1.02); EST Glomerular Filtration Rate 67 mL/min (>60); Est Glom Filt Rate - Afr Amer 81 mL/min (>60); Globulin 3.8 g/dL (2.2-4.2); Glucose 70 mg/dL (74-106); Potassium 4.3 mmol/L (3.5-5.1); Sodium Level 138 mmol/L (136-145); Thyroid Stim Hormone (TSH) 1.85 uIU/mL (0.358-3.74)
== END ==
PROVIDERS: PCP Family Medicine Geriatric Medicine; Visit Provider Family Medicine Geriatric Medicine
DX: I10 Essential (primary) hypertension (principal); E55.9 Vitamin D deficiency, unspecified
CPT/HCPCS: 36415; 80053; 82306; 84443; 85025

== ENCOUNTER 2020-08-21 01:37 | Emergency (ER) | payer MEDICARE, OTHER, SELFPAY ==
[2020-06-19 08:29] VITALS: BMI 30.9
[2020-08-21 01:38] VITALS: BP 242/115; PULSE 93; RESP 16; TEMP 36.2; O2SAT 95; BMI 31.4
--- NOTE | 2020-08-21 01:58 | CT_ITS ---
STUDY: CT BRAIN WITHOUT CONTRAST REASON FOR EXAM: Female, 85 years old. headache RADIATION DOSAGE (If Supplied By Facility): CTDIvol = ( 44.99 ) mGy, DLP = ( 779.24 ) mGycm TECHNIQUE: Transaxial CT imaging of the brain was performed without administration of intravenous contrast material. Individualized dose optimization techniques were used for this CT. COMPARISON: No relevant priors. FINDINGS: Normal soft tissue structures. Normal calvarium. There is mild cerebral atrophy with widening of the extra-axial spaces and ventricular dilatation. There are areas of decreased attenuation within the white matter tracts of the supratentorial brain, consistent with microvascular disease changes. Normal basal ganglia and thalami. Normal brainstem. Normal cerebellum. There is no intracranial hemorrhage. There are no findings of an acute ischemic infarction. Normal visualized paranasal sinuses. CT/Brain/Head without Contrast IMPRESSION: Mild generalized brain atrophy along with microangiopathic white matter disease. No acute intracranial hemorrhage or space-occupying lesion. Electronically Signed: Cheryl Oreilly MD at 3:18 EDT , Service support ,
--- NOTE | 2020-08-21 01:58 | RAD_ITS ---
STUDY: X-RAY CHEST REASON FOR EXAM: Female, 85 years old. hypertension TECHNIQUE: Single AP portable view of the chest. COMPARISON: 12/31/2019. FINDINGS: The lungs are clear and expanded. There is no demonstrated pleural abnormality. Normal size heart. Normal mediastinum and fermín. Normal visualized pulmonary arteries. There is atherosclerotic calcification of the aortic arch with tortuosity. There is demineralization of the osseous structures. There is degenerative osteoarthritis of the bilateral shoulders. There is no demonstrated abnormality of the visualized soft tissue structures of the upper abdomen. RAD/Chest 1 View (Portable) IMPRESSION: No acute cardiopulmonary disease. Electronically Signed: Cheryl Oreilly MD at 2:21 EDT , Service support ,
--- NOTE | 2020-08-21 01:59 | EDS_ITS ---
HPI History of Present Illness Chief Complaint: Hypertension Informant: patient Narrative Narrative: Patient is an 85-year-old female with history of hypertension, hyperlipidemia and aortic stenosis as well as coronary artery disease and DVT on chronic Coumadin therapy presenting for hypertension. Patient states she had a headache for the past few days and was feeling a little off today. She checked her blood pressure. It was elevated and she took her blood pressure medication, lisinopril and carvedilol. She checked her blood pressure again went down and then she checked it some more and then it started to become very elevated. Patient said to come to the emergency room for further evaluation. She denies associated chest pain, shortness of breath or dyspnea on exertion. She denies any vision changes. She states that headache is over her left forehead and buddhism. She states it is mild. She denies any nausea, vomiting or abdominal pain. She notes she was peeing a lot over the last few hours but thinks it was from her medication. No other complaints at this time. [facility] Medical History (Updated 08/21/20 @ 03:[address] Amberly Zavala, ) Atherosclerotic heart disease of [place] coronary artery without angina pectoris Deep vein thrombosis Essential (primary) hypertension Hyperlipidemia Nonrheumatic aortic (valve) stenosis Home Medications warfarin 4 mg PO DAILY 06/12/13 [History Last Taken 11/20/19] cholecalciferol (vitamin D3) 5,000 unit PO DAILY 12/12/17 [History Last Taken 11/20/19] coenzyme Q10 200 mg PO DAILY 12/12/17 [History Last Taken 11/20/19] turmeric 400 mg capsule 400 mg PO DAILY cap 01/25/19 [History Last Taken 11/20/19] carvedilol 3.125 mg tablet 3.125 mg PO BID 01/07/20 [History Last Taken Unknown] lisinopril 10 mg tablet 10 mg PO BID tab 01/16/20 [History Last Taken Unknown] nitroglycerin 0.4 mg sublingual tablet 0.4 mg SL Q5M PRN #25 tablet 06/19/20 [Rx Last Taken Unknown] Allergy/AdvReac Type Severity Reaction Status Date / Time azithromycin Allergy Severe Other Verified 08/21/20 01:43 pravastatin AdvReac Severe mylagias Verified 08/21/20 01:43 Family History Other CVA (cerebral vascular accident) Surgical History History of coronary artery stent placement (06/19/01) History of left heart catheterization (07/26/13) Social History Smoking Status: Never smoker ROS ROS ED Constitutional Constitutional ED: Denies chills, fever(s) or malaise Eyes Eyes: Denies blurry vision or loss of vision ENT ENT ED: Denies rhinorrhea or sore throat Cardiovascular Cardiovascular: Reports dizziness; Denies chest pain Respiratory/Chest Respiratory/Chest: Denies cough or dyspnea Gastrointestinal Gastrointestinal: Denies nausea or vomiting Genitourinary Genitourinary ED: Reports urinary frequency; Denies dysuria or hematuria Musculoskeletal Musculoskeletal: Denies arthralgias or myalgias Integumentary Denies rash or wounds Neurologic Neurologic: Reports headache(s); Denies focal weakness Psychiatric Psychiatric: Denies anxiety or behavioral changes EXAM Physical Exam Const Vital Signs: 08/21/20 01:38 08/21/20 01:40 08/21/20 02:40 Temperature 97.1 F L Temperature Source Temporal Pulse Rate 93 71 Respiratory Rate 16 17 Respiratory Effort Normal Respiratory Pattern Normal Blood Pressure 242/115 H 172/97 H Blood Pressure Mean 157 122 Pulse Ox 95 95 Oxygen Delivery Method Room Air Room Air 08/21/20 03:24 Temperature Temperature Source Pulse Rate 70 Respiratory Rate 17 Respiratory Effort Respiratory Pattern Blood Pressure 150/91 H Blood Pressure Mean 110 Pulse Ox 97 Oxygen Delivery Method Room Air Positive well nourished, well developed and no apparent distress General Appearance ED: well developed HEENT Reports normocephalic normocephalic and atraumatic; Negative for temporal artery tenderness Face and Sinus: other No tenderness palpation over the temples Nose: no nasal discharge General Ear: hearing grossly impaired External Ear: external ears normal Mouth ED: Yes oral and palatal mucosa normal Mouth: oral and palatal mucosa normal Eyes PERRL and EOMs intact bilaterally Neck full ROM and no meningeal signs Chest Wall inspection of chest normal Resp normal respiratory effort and normal air movement Cardio regular rate and regular rhythm Heart Sounds: murmur GI normal to inspection, nondistended, normoactive bowel sounds Extremity normal to inspection and full ROM Neuro oriented x3, moves all extremities, no focal motor deficits and no sensory deficits noted Psych mental status grossly normal and thought process normal Skin no rashes or lesions noted and no wounds MDM MDM MDM Narrative Medical decision making narrative: Patient evaluated for an episode of dizziness as well as hypertension. Patient peers nontoxic in no acute distress. She has no focal neurologic deficits. EKG is normal. She not having associated chest pain. Troponin is normal. As patient is on chronic anticoagulation and is having headache I will obtain a head CT. This does not show any acute bleed.I do not think the headache is associated with giant cell arteritis that she does not have any tenderness with palpation, vision changes or jaw pain. Her creatinine is at her baseline. I do not think there is a hypertensive emergency. Patient's INR is subtherapeutic 1.7. She is informed of this finding. She is instructed to call PCP office who manages her Coumadin levels tomorrow for further recommendations. Patient blood pressure markedly decreases without any intervention. At this time will not make any medication adjustments. Patient again is encouraged to follow-up with her primary care doctor for further management of her blood pressure and keep a blood pressure log. Patient is counseled on signs and symptoms requiring return to the emergency room. Patient verbalizes agreement and understand this plan. Patient discharged home in stable and improved condition. Lab Data Labs: Laboratory Results - last 24 hr 08/21/20 08/21/20 08/21/20 01:37 01:37 01:37 WBC 6.2 RBC 4.34 Hgb 13.9 Hct 43.3 MCV 99.8 H MCH 32.0 MCHC 32.1 RDW Std Deviation 49.7 H RDW Coeff of Heladio 13.4 Plt Count 248 MPV 10.9 Immature Gran % (Auto) 0.300 Neut % (Auto) 51.9 Lymph % (Auto) 34.8 [place] % (Auto) 10.4 H Eos % (Auto) 2.1 Baso % (Auto) 0.5 Absolute Neuts (auto) 3.2 Absolute Lymphs (auto) 2.17 Nucleated RBC % 0 PT INR Sodium 140 Potassium 4.2 Chloride 106 Carbon Dioxide 30.0 Anion Gap 4 L BUN 27 H Creatinine 1.08 H Estim Creat Clear Calc 30.12 Est GFR (MDRD) Af Amer 62 Est GFR (MDRD) Non-Af 51 L BUN/Creatinine Ratio 25.0 H Glucose 99 Calcium 9.8 Troponin I < 0.015 Urine Color Urine Clarity Urine pH Ur Specific [place] Urine Protein Urine Glucose (UA) Urine Ketones Urine Occult Blood Urine Nitrite Urine Bilirubin Urine Urobilinogen Ur Leukocyte Esterase Urine RBC Urine WBC Ur Squamous Epith Cells Urine Bacteria Urine Mucus 08/21/20 08/21/20 01:40 02:10 WBC RBC Hgb Hct MCV MCH MCHC RDW Std Deviation RDW Coeff of Heladio Plt Count MPV Immature Gran % (Auto) Neut % (Auto) Lymph % (Auto) [place] % (Auto) Eos % (Auto) Baso % (Auto) Absolute Neuts (auto) Absolute Lymphs (auto) Nucleated RBC % PT 19.0 H INR 1.7 Sodium Potassium Chloride Carbon Dioxide Anion Gap BUN Creatinine Estim Creat Clear Calc Est GFR (MDRD) Af Amer Est GFR (MDRD) Non-Af BUN/Creatinine Ratio Glucose Calcium Troponin I Urine Color Yellow Urine Clarity Clear Urine pH 8.0 Ur Specific [place] 1.010 Urine Protein Negative Urine Glucose (UA) Normal Urine Ketones 5 H Urine Occult Blood Negative Urine Nitrite Negative Urine Bilirubin Negative Urine Urobilinogen Normal Ur Leukocyte Esterase 25 H Urine RBC 0 SEEN Urine WBC 0-5 SEEN Ur Squamous Epith Cells 0 SEEN Urine Bacteria 0 SEEN Urine Mucus 0 SEEN Radiography Chest X-Ray - ED: 1 View, Read by ED Physician, Read by Radiologist and No Acute Disease Diagnostic Testing: Radiology Impression Brain CT 08/21/20 01:58 IMPRESSION: Mild generalized brain atrophy along with microangiopathic white matter disease. No acute intracranial hemorrhage or space-occupying lesion. Electronically Signed: Cheryl Oreilly MD at 3:18 EDT , Service support , Chest X-Ray 08/21/20 01:58 IMPRESSION: No acute cardiopulmonary disease. Electronically Signed: Cheryl Oreilly MD at 2:21 EDT , Service support , Rhythm Strip Rhythm Strip: Sinus Rhythm Rate: 73 Ectopy: None EKG Initial EKG: Attestation: I personally reviewed and interpreted this EKG as follows: Interpretation: Sinus Rhythm Comments: Normal sinus rhythm at a rate of 73 Normal axis Normal intervals Normal ST segments No change from prior EKG on 11/20/2019 Discharge Plan Triage Chief Complaint: Hypertension ED Provider: Amberly Zavala Dx/Rx/DC Orders Clinical Impression: Essential (primary) hypertension, Headache, Subtherapeutic anticoagulation Instructions: ED Hypertension, Established Prescriptions: No Action turmeric 400 mg capsule 400 mg PO DAILY RF: 0 nitroglycerin 0.4 mg tablet, sublingual 0.4 mg SL Q5M PRN (Reason: ANGINA) Qty: 25 RF: 3 warfarin 4 MG tablet 4 mg PO DAILY RF: 0 cholecalciferol (vitamin D3) 5,000 UNIT capsule 5,000 unit PO DAILY RF: 0 coenzyme Q10 200 MG capsule 200 mg PO DAILY RF: 0 carvedilol 3.125 mg tablet 3.125 mg PO BID RF: 0 lisinopril 10 mg tablet 10 mg PO BID RF: 0 Primary Care Provider: Edgar Crooks Chi Referrals: Edgar Crooks Chi, MD [Primary Care Provider] - Activity Restrictions/Additional Instructions: Your INR today is 1.7. Please call Dr. Crooks's office tomorrow to let them know that you are seen in the ER for high blood pressure and also your INR level was 1.7. Disposition Disposition: Home, self care
--- NOTE | 2020-08-21 01:59 | EKG12_ITS ---
Test Reason : HYPERTENSION Blood Pressure : / mmHG Vent. Rate : 073 BPM Atrial Rate : 073 BPM P-R Int : 178 ms QRS Dur : 088 ms QT Int : 416 ms P-R-T Axes : 063 037 045 degrees QTc Int : 458 ms Normal sinus rhythm Normal ECG Confirmed by ELIZABETH PAEZ, ELIEZER ([id number]), editor managing newspaper CANDIE PEMBERTON ([id number]) on 08/22/2020 10:45:40 A M Referred By: ELSA Confirmed By:SHEILA JOHNSON MD
[2020-08-21 02:03] LABS: Absolute Lymphocyte Count 2.17 X10^3/uL (0.83-4.51); Absolute Neutrophil Count 3.2 X10^3/uL (2.0-7.7); Basophil# 0.03 X10^3/uL; Basophil% 0.5 % (0-1); Eosinophil# 0.13 X10^3/uL; Eosinophils% 2.1 % (0-5); Hematocrit 43.3 % (37-47); Hemoglobin 13.9 g/dL (12.0-15.0); Lymphocyte # 2.17 X10^3/ul (0.83-4.51); Lymphocyte % 34.8 % (19-41); Mean Corp Hgb Conc 32.1 g/dL (32-36); Mean Corpuscular Volume 99.8 fL (81-99); Mean Platelet Vol. 10.9 fl (6.2-12.0); Monocyte# 0.65 X10^3/uL; Monocyte% 10.4 % (0-10); NRBC Flagged by Analyzer 0 % (0-5); Neutrophil # 3.23 X10^3/uL (2.7-7.7); Neutrophil % 51.9 % (47-70); Platelet Count 248 K/mm3 (150-450); RBC Distribution Width CV 13.4 % (11.6-14.6); RBC Distribution Width SD 49.7 fl (35.1-43.9); Red Blood Count 4.34 M/mm3 (4.2-5.4); White Blood Count 6.2 K/mm3 (4.4-11.0)
[2020-08-21 02:10] LABS: Bacteria 0 SEEN /hpf (None Seen); Mucous, Urine 0 SEEN /hpf (<or=2+); Red Blood Cells-Urine 0 SEEN /hpf (0-5); Squamous Epithelial Cells - UA 0 SEEN /hpf (5-10)
[2020-08-21 02:11] LABS: Anion Gap 4 (5-15); BUN 27 mg/dL (7-18); Calcium,Total 9.8 mg/dL (8.5-10.1); Chloride 106 mmol/L (98-107); Creatinine, Serum 1.08 mg/dL (0.55-1.02); EST Glomerular Filtration Rate 51 mL/min (>60); Est Glom Filt Rate - Afr Amer 62 mL/min (>60); Estimated Creatinine Clearance 30.12 ml/min; Glucose 99 mg/dL (74-106); Potassium 4.2 mmol/L (3.5-5.1); Sodium Level 140 mmol/L (136-145)
[2020-08-21 02:11] LABS: Color, Urine Yellow (Yellow); Glucose, Dipstick Normal (Normal); Ketone-Dipstick 5 mg/dl (Negative); Leukocyte Esterase-Dipstick 25 /ul (Negative); Nitrite-Dipstick Negative (Negative); Occult Blood-Urine Negative /ul (Negative); Protein-Dipstick Negative (Negative); Urine Bilirubin Dipstick Negative (Negative); Urine Clarity Clear (Clear); Urine Urobilinogen Normal (Normal)
[2020-08-21 02:16] LABS: White Blood Cells 0-5 SEEN /hpf (0-5)
[2020-08-21 02:21] LABS: International Normalized Ratio 1.7
[2020-08-21 02:40] VITALS: BP 172/97; PULSE 71; RESP 17; O2SAT 95
[2020-08-21 03:24] VITALS: BP 150/91; PULSE 70; RESP 17; O2SAT 97
[2020-08-21 03:32] VITALS: BP 161/84; PULSE 68; RESP 16; O2SAT 97
== END 2020-08-21 03:37 | disposition home or self-care (01) ==
PROVIDERS: Emergency Provider Emergency Medicine; PCP Family Medicine Geriatric Medicine
DX: I10 Essential (primary) hypertension (principal); R51.9 Headache, unspecified; R79.1 Abnormal coagulation profile; E78.5 Hyperlipidemia, unspecified; I25.10 Atherosclerotic heart disease of native coronary artery without angina pectoris; I35.0 Nonrheumatic aortic (valve) stenosis; Z86.718 Personal history of other venous thrombosis and embolism; Z95.5 Presence of coronary angioplasty implant and graft; Z79.01 Long term (current) use of anticoagulants; Z79.899 Other long term (current) drug therapy
CPT/HCPCS: 70450; 71045; 80048; 81001; 84484; 85025; 85610; 93005; 99284; A4216

== ENCOUNTER → 2020-12-04 08:51 | Outpatient (CLI) | payer MEDICARE, OTHER, SELFPAY ==
--- NOTE | 2020-12-04 08:52 | ECHOD_ITS ---
Reason For Study: HYPERTENSION Procedure This was a 2D Doppler, Color Flow transthoracic echocardiogram. Exam performed in department. Left Ventricle Normal LV size. Left ventricular systolic function is normal. Stage 1 diastolic dysfunction. No regional wall motion abnormalities noted. Right Ventricle Normal RV size. Normal systolic function. Atria The left atrium is mildly enlarged. Normal right atrium. Mitral Valve There is moderate mitral annular calcification. Mild (1+) eccentric mitral valve insufficiency. Tricuspid Valve Normal tricuspid valve. Mild tricuspid valve insufficiency. Aortic Valve Trisinus/trileaflet aortic valve. Moderate focal aortic valve calcification. Peak aortic valve gradient 45 mmHg. Mean aortic valve gradient 26 mmHg. Pulmonic Valve Normal pulmonic valve. Mild (1+) pulmonic valve insufficiency. Great Vessels Calcified aortic root. The pulmonary artery is normal size. Normal inferior vena cava. Pericardium/Pleural No pericardial effusion. MMode/2D Measurements & Calculations LVIDd: 4.0 cm IVSd: 1.2 cm LVOT diam: 2.1 cm LVIDs: 2.3 cm LVPWd: 1.0 cm LVOT area: 3.3 cm2 RVDd: 3.6 cm FS: 43.0 % Ao root diam: 2.9 cm LAV(MOD-bp): 69.6 ml LA A4 area: 21.4 cm2 LAV(MOD-bp) Indexed: 39.4 ml/m2 LAV(MOD-sp2): 59.6 ml LAV(MOD-sp4): 69.6 ml LA dimension(2D): 4.5 cm RA A4 area: 11.4 cm2 Time Measurements MV dec time: 0.32 sec Doppler Measurements & Calculations MV E max isauro: 91.5 cm/sec Lat Peak E' Isauro: 3.4 cm/sec Med Peak E' Isauro: 4.3 cm/sec MV A max isauro: 126.0 cm/sec E/E' lat: 27.3 E/E' med: 21.5 MV E/A: 0.73 Ao V2 max: 335.3 cm/sec LV V1 max: 90.8 cm/sec SV(LVOT): 75.6 ml Ao max P.0 mmHg LV V1 max P.3 mmHg Ao V2 mean: 246.9 cm/sec LV V1 mean P.6 mmHg Ao mean P.1 mmHg LV V1 mean: 60.6 cm/sec Ao V2 VTI: 81.3 cm LV V1 VTI: 22.8 cm GARRET(I,D): 0.93 cm2 GARRET(V,D): 0.90 cm2 PA V2 max: 82.4 cm/sec TR max isauro: 221.9 cm/sec PI dec slope: 181.6 cm/sec2 TR max P.7 mmHg ECHO/Echo Complete Interpretation Summary Normal LV size. Left ventricular systolic function is normal. Stage 1 diastolic dysfunction. There is moderate mitral annular calcification. Mild (1+) eccentric mitral valve insufficiency. The left atrium is mildly enlarged. Ordering Physician: Priyanka Marks Referring Physician: Edgar Crooks Chi Performed By: Daksha Vieyra RDCS, RVT
== END ==
PROVIDERS: PCP Family Medicine Geriatric Medicine; Referring Provider Nurse Practitioner Gerontology; Visit Provider Nurse Practitioner Gerontology
DX: I25.10 Atherosclerotic heart disease of native coronary artery without angina pectoris (principal); I10 Essential (primary) hypertension; I35.0 Nonrheumatic aortic (valve) stenosis; N20.0 Calculus of kidney; E78.5 Hyperlipidemia, unspecified; Z86.718 Personal history of other venous thrombosis and embolism; Z79.01 Long term (current) use of anticoagulants; Z79.899 Other long term (current) drug therapy
CPT/HCPCS: 71045; 74176; 80048; 80053; 81001; 84484; 85025; 93005; 93306; 96360; 99284; J7040; A4216

== ENCOUNTER 2020-12-04 21:20 | Emergency (ER) | payer MEDICARE, OTHER, SELFPAY ==
[2020-12-04 21:20] VITALS: BP 232/120; PULSE 83; RESP 16; TEMP 36.4; O2SAT 99; BMI 30.3
--- NOTE | 2020-12-04 22:12 | EKG12_ITS ---
Test Reason : HTN Blood Pressure : / mmHG Vent. Rate : 070 BPM Atrial Rate : 070 BPM P-R Int : 188 ms QRS Dur : 088 ms QT Int : 414 ms P-R-T Axes : 047 039 041 degrees QTc Int : 447 ms Normal sinus rhythm Normal ECG Confirmed by GENEVIEVE PAEZ, ROSANGELA ([id number]), editor in chief CANDIE PEMBERTON ([id number]) on 12/08/2020 8:05:44 AM Referred By: LATRELL Confirmed By:ROSANGELA VALLEJO MD
--- NOTE | 2020-12-04 22:12 | RAD_ITS ---
STUDY: X-RAY CHEST REASON FOR EXAM: Female, 85 years old. Chest pain TECHNIQUE: Portable, upright AP chest radiograph COMPARISON: 08/21/2020 FINDINGS: Bibasilar atelectasis. No focal consolidation. There is no demonstrated pleural abnormality. Normal size heart. Normal mediastinum and fermín. Normal visualized pulmonary arteries. There is atherosclerotic calcification of the aortic arch with tortuosity. There is degenerative osteoarthritis of the bilateral shoulders. There is no demonstrated abnormality of the visualized soft tissue structures of the upper abdomen. RAD/Chest 1 View (Portable) IMPRESSION: Bibasilar atelectasis. Electronically Signed: Douglas Sanchez MD at 23:01 EDT Tel , Service support ,
--- NOTE | 2020-12-04 22:13 | EX.ED.DYSGE1 ---
HPI History of Present Illness Chief Complaint: Hypertension Informant: patient Onset/Context/Timing Onset: Today Context: Gradual Onset Timing: Continuous Quality: Headache Quality - All: dull Location: Frontal Worsened by: Nothing Relieved by: Nothing Narrative Narrative: Patient presents with elevated blood pressure that began today. Patient felt like her blood pressure was elevated all day today. Patient states she gets a headache whenever her blood pressure is elevated. Patient states this is over the frontal area behind her eyes. Patient states that she took her morning medications for her blood pressure. Patient states that at lunchtime she noticed that she was still having a headache so she took a second dose of her blood pressure medications. Patient states she had no improvement by dinnertime. Patient states that approximately 1 hour prior to arrival she took a third dose of her blood pressure medications. Patient states she was having some pressure in her chest prior to arrival. Patient states this has resolved. Patient denies any shortness of breath. Prior similar symptoms: Yes PFSH PFSH Medical History (Updated 12/05/20 @ 03:[address] 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 Essential (primary) hypertension Hyperlipidemia Nonrheumatic aortic (valve) stenosis Home Medications warfarin 4 mg PO DAILY 06/12/13 [History Last Taken 11/20/19] cholecalciferol (vitamin D3) 5,000 unit PO DAILY 12/12/17 [History Last Taken 11/20/19] coenzyme Q10 200 mg PO DAILY 12/12/17 [History Last Taken 11/20/19] carvedilol 3.125 mg tablet 3.125 mg PO BID 01/07/20 [History Last Taken Unknown] nitroglycerin 0.4 mg sublingual tablet 0.4 mg SL Q5M PRN #25 tablet 06/19/20 [Rx Last Taken Unknown] lisinopril 10 mg tablet 10 mg PO BID #180 tab 09/22/20 [Rx Last Taken Unknown] Allergy/AdvReac Type Severity Reaction Status Date / Time azithromycin Allergy Severe Other Verified 12/01/20 08:29 pravastatin AdvReac Severe mylagias Verified 12/01/20 08:29 Family History Other CVA (cerebral vascular accident) Surgical History History of coronary artery stent placement (06/19/01) History of left heart catheterization (07/26/13) Social History Smoking Status: Never smoker ROS ROS ED Constitutional Constitutional ED: Denies chills or fever(s) Eyes Eyes: Denies blurry vision or change in vision ENT ENT ED: Denies rhinorrhea or sore throat Cardiovascular Cardiovascular: Reports chest pain; Denies palpitations Respiratory/Chest Respiratory/Chest: Denies cough or dyspnea Gastrointestinal Gastrointestinal: Denies nausea or vomiting Genitourinary Genitourinary ED: Denies dysuria or hematuria Musculoskeletal Musculoskeletal: Reports neck pain; Denies back pain Integumentary Denies abscess or rash Neurologic Neurologic: Reports headache(s); Denies weakness Allergic/Immunologic Allergic/Immunologic ED: Denies mouth swelling or urticaria EXAM Physical Exam Const Vital Signs: 12/04/20 21:20 12/04/20 21:43 12/04/20 22:39 Temperature 97.6 F L Temperature Source Temporal Pulse Rate 83 Respiratory Rate 16 Respiratory Effort Normal Non-Labored Blood Pressure 232/120 H 154/83 H Blood Pressure Mean 157 106 Pulse Ox 99 Oxygen Delivery Method Room Air 12/04/20 22:57 12/04/20 23:16 12/05/20 01:07 Temperature Temperature Source Pulse Rate 72 68 70 Respiratory Rate 18 15 18 Respiratory Effort Blood Pressure 161/89 H 178/95 H Blood Pressure Mean 113 122 Pulse Ox 98 97 94 Oxygen Delivery Method Room Air Room Air Room Air 12/05/20 02:02 Temperature Temperature Source Pulse Rate 72 Respiratory Rate 28 H Respiratory Effort Blood Pressure 174/90 H Blood Pressure Mean 118 Pulse Ox 98 Oxygen Delivery Method Room Air Positive well nourished and well developed General Appearance ED: well developed HEENT Reports moist mucous membranes Neck supple and no JVD Resp normal respiratory effort and clear to auscultation bilaterally Cardio regular rate and regular rhythm Heart Sounds: murmur systolic III/ right sternal border GI normal to inspection, nondistended, normoactive bowel sounds and non-tender Palpation: soft Extremity normal to inspection General Extremety ED: Negative for edema or tenderness General Extremity: Negative for edema Neuro oriented x3, CN's II-XII intact bilaterally and no sensory deficits noted Sensorium / Orientation: alert Motor Exam: strength 5/5 throughout Psych mental status grossly normal Skin no rashes or lesions noted MDM MDM MDM Narrative Medical decision making narrative: On my evaluation, patient's blood pressure was 160/91. I do not feel patient needs antihypertensive medications at this time especially since she took a third dose of her normal blood pressure medications 1 hour prior to arrival. EKG was obtained. On my interpretation, it showed a normal sinus rhythm with a rate of 70. MS interval, QRS interval, and QTc intervals were all normal. [place] was normal. There are no acute ST or T wave changes. CBC was within normal limits. Comprehensive metabolic profile showed an elevated creatinine of 1.84. This was increased compared to previous result of 1.08. Urinalysis does not show any evidence of urinary tract infection. Portable 1 view chest x-ray was obtained. On my interpretation, lung loaiza are clear. There is normal cardiac silhouette. Bony thorax is normal. There is no acute process noted. Radiologist also interpreted the x-ray and agrees. CT scan of the abdomen and pelvis was obtained because of the increase in creatinine. There is no acute abnormality noted. There is a small stone in the right kidney but there is no obstruction. This was interpreted by the radiologist and reviewed by myself. Patient's blood pressure began to increase again. It went up to 174/90. Patient was given a dose of clonidine here. Case was discussed with the hospitalist. He requested to repeat the BMP. This was ordered. Repeat creatinine was 1.15. Patient was feeling better on reevaluation. Patient was instructed to increase her carvedilol to 2 tablets twice daily. Patient was instructed to keep a log of her blood pressures. Patient was instructed to follow-up with her primary care physician in 3 to 5 days. Patient understood and was agreeable with the plan. All questions were answered. Lab Data Attestation: I reviewed the patient's lab results. Labs: Laboratory Results - last 24 hr 12/04/20 12/04/20 12/04/20 21:38 21:38 22:52 WBC 5.3 RBC 4.13 L Hgb 13.5 Hct 40.6 MCV 98.3 MCH 32.7 H MCHC 33.3 RDW Std Deviation 48.2 H RDW Coeff of Heladio 13.3 Plt Count 239 MPV 11.5 Immature Gran % (Auto) 0.200 Neut % (Auto) 51.4 Lymph % (Auto) 34.9 [place] % (Auto) 10.1 H Eos % (Auto) 2.8 Baso % (Auto) 0.6 Absolute Neuts (auto) 2.7 Absolute Lymphs (auto) 1.86 Nucleated RBC % 0 Sodium 138 Potassium 4.6 Chloride 105 Carbon Dioxide 28.0 Anion Gap 5 BUN 26 H Creatinine 1.84 H Estim Creat Clear Calc 17.68 Est GFR (MDRD) Af Amer 34 L Est GFR (MDRD) Non-Af 28 L BUN/Creatinine Ratio 14.1 Glucose 97 Calcium 9.1 Total Bilirubin 0.40 AST 31 ALT 24 Alkaline Phosphatase 60 Troponin I High Sens 10 Total Protein 7.8 Albumin 3.2 Globulin 4.6 H Albumin/Globulin Ratio 0.7 L Urine Color Yellow Urine Clarity Sl. Cloudy Urine pH 7.0 Ur Specific [place] 1.010 Urine Protein Negative Urine Glucose (UA) Normal Urine Ketones Negative Urine Occult Blood Negative Urine Nitrite Negative Urine Bilirubin Negative Urine Urobilinogen Normal Ur Leukocyte Esterase 100 H Urine RBC 0 SEEN Urine WBC 5-10 SEEN Ur Squamous Epith Cells 0-5 SEEN Urine Bacteria 0 SEEN Urine Mucus 0 SEEN 12/05/20 02:20 WBC RBC Hgb Hct MCV MCH MCHC RDW Std Deviation RDW Coeff of Heladio Plt Count MPV Immature Gran % (Auto) Neut % (Auto) Lymph % (Auto) [place] % (Auto) Eos % (Auto) Baso % (Auto) Absolute Neuts (auto) Absolute Lymphs (auto) Nucleated RBC % Sodium 140 Potassium 4.2 Chloride 107 Carbon Dioxide 29.0 Anion Gap 4 L BUN 24 H Creatinine 1.15 H Estim Creat Clear Calc 28.29 Est GFR (MDRD) Af Amer 58 L Est GFR (MDRD) Non-Af 48 L BUN/Creatinine Ratio 20.9 H Glucose 95 Calcium 8.7 Total Bilirubin AST ALT Alkaline Phosphatase Troponin I High Sens Total Protein Albumin Globulin Albumin/Globulin Ratio Urine Color Urine Clarity Urine pH Ur Specific [place] Urine Protein Urine Glucose (UA) Urine Ketones Urine Occult Blood Urine Nitrite Urine Bilirubin Urine Urobilinogen Ur Leukocyte Esterase Urine RBC Urine WBC Ur Squamous Epith Cells Urine Bacteria Urine Mucus Radiography Chest X-Ray - ED: 1 View, Read by ED Physician, Read by Radiologist and Normal Diagnostic Testing: Radiology Impression Chest X-Ray 12/04/20 22:12 IMPRESSION: Bibasilar atelectasis. Electronically Signed: Douglas Sanchez MD at 23:01 EDT Tel , Service support , Abdomen/Pelvis CT 12/05/20 23:37 IMPRESSION: No acute abnormal finding in the abdomen or pelvis. Redemonstrated punctate nonobstructing right renal calculus. Electronically Signed: Douglas Sanchez MD at 1:19 EDT Tel , Service support , EKG Initial EKG: Attestation: I personally reviewed and interpreted this EKG as follows: Interpretation: Sinus Rhythm (70) and No Acute Injury Pattern Discharge Plan Triage Chief Complaint: Hypertension ED Provider: Juan Antonio Olsen Dx/Rx/DC Orders Clinical Impression: Essential (primary) hypertension Instructions: ED Hypertension, Established Prescriptions: No Action nitroglycerin 0.4 mg tablet, sublingual 0.4 mg SL Q5M PRN (Reason: ANGINA) Qty: 25 RF: 3 lisinopril 10 mg tablet 10 mg PO BID Qty: 180 RF: 3 warfarin 4 MG tablet 4 mg PO DAILY RF: 0 cholecalciferol (vitamin D3) 5,000 UNIT capsule 5,000 unit PO DAILY RF: 0 coenzyme Q10 200 MG capsule 200 mg PO DAILY RF: 0 carvedilol 3.125 mg tablet 3.125 mg PO BID RF: 0 Primary Care Provider: Edgar Crooks Chi Referrals: Edgar Crooks Chi, MD [Primary Care Provider] - 3-5 Days Activity Restrictions/Additional Instructions: Increase your Coreg (carvedilol) to 2 tablets twice daily. Keep a log of your blood pressures. Follow-up with your primary care physician for further management of the blood pressure. Disposition Disposition: Home, Self Care
[2020-12-04 22:27] LABS: Absolute Lymphocyte Count 1.86 X10^3/uL (0.83-4.51); Absolute Neutrophil Count 2.7 X10^3/uL (2.0-7.7); Basophil# 0.03 X10^3/uL; Basophil% 0.6 % (0-1); Eosinophil# 0.15 X10^3/uL; Eosinophils% 2.8 % (0-5); Hematocrit 40.6 % (37-47); Hemoglobin 13.5 g/dL (12.0-15.0); Lymphocyte # 1.86 X10^3/ul (0.83-4.51); Lymphocyte % 34.9 % (19-41); Mean Corp Hgb Conc 33.3 g/dL (32-36); Mean Corpuscular Hgb 32.7 pg (27.0-32.0); Mean Corpuscular Volume 98.3 fL (81-99); Mean Platelet Vol. 11.5 fl (6.2-12.0); Monocyte# 0.54 X10^3/uL; Monocyte% 10.1 % (0-10); NRBC Flagged by Analyzer 0 % (0-5); Neutrophil # 2.74 X10^3/uL (2.7-7.7); Neutrophil % 51.4 % (47-70); Platelet Count 239 K/mm3 (150-450); RBC Distribution Width CV 13.3 % (11.6-14.6); RBC Distribution Width SD 48.2 fl (35.1-43.9); Red Blood Count 4.13 M/mm3 (4.2-5.4); White Blood Count 5.3 K/mm3 (4.4-11.0)
[2020-12-04 22:39] VITALS: BP 154/83
[2020-12-04 22:56] LABS: ALB/GLOB Ratio 0.7 RATIO (0.9-2.4); AST(SGOT) 31 U/L (15-37); Alanine Aminotransfer ALT/SGPT 24 U/L (13-56); Albumin, Serum 3.2 g/dL (3.2-5.0); Alkaline Phosphatase 60 U/L (45-117); Anion Gap 5 (5-15); BUN 26 mg/dL (7-18); BUN/Creat Ratio 14.1 RATIO (10-20); Calcium,Total 9.1 mg/dL (8.5-10.1); Chloride 105 mmol/L (98-107); Creatinine, Serum 1.84 mg/dL (0.55-1.02); EST Glomerular Filtration Rate 28 mL/min (>60); Est Glom Filt Rate - Afr Amer 34 mL/min (>60); Estimated Creatinine Clearance 17.68 ml/min; Globulin 4.6 g/dL (2.2-4.2); Glucose 97 mg/dL (74-106); Potassium 4.6 mmol/L (3.5-5.1); Protein, Total 7.8 g/dL (6.4-8.2); Sodium Level 138 mmol/L (136-145); Troponin-I HS 10 pg/mL (3.0-54.0)
[2020-12-04 22:57] VITALS: PULSE 72; RESP 18; O2SAT 98
[2020-12-04 23:00] LABS: Bacteria 0 SEEN /hpf (None Seen); Mucous, Urine 0 SEEN /hpf (<or=2+); Red Blood Cells-Urine 0 SEEN /hpf (0-5)
[2020-12-04 23:03] LABS: Color, Urine Yellow (Yellow); Glucose, Dipstick Normal (Normal); Ketone-Dipstick Negative (Negative); Leukocyte Esterase-Dipstick 100 /ul (Negative); Nitrite-Dipstick Negative (Negative); Occult Blood-Urine Negative /ul (Negative); Protein-Dipstick Negative (Negative); Urine Bilirubin Dipstick Negative (Negative); Urine Clarity Sl. Cloudy (Clear); Urine Urobilinogen Normal (Normal)
[2020-12-04 23:11] LABS: Squamous Epithelial Cells - UA 0-5 SEEN /hpf (5-10); White Blood Cells 5-10 SEEN /hpf (0-5)
[2020-12-04 23:16] VITALS: BP 161/89; PULSE 68; RESP 15; O2SAT 97
[2020-12-05 01:07] VITALS: BP 178/95; PULSE 70; RESP 18; O2SAT 94
[2020-12-05] MEDS: cloNIDine HCl 0.1 MG Tablet PO (02:01)
[2020-12-05 02:02] VITALS: BP 174/90; PULSE 72; RESP 28; O2SAT 98
[2020-12-05 02:40] LABS: Anion Gap 4 (5-15); BUN 24 mg/dL (7-18); BUN/Creat Ratio 20.9 RATIO (10-20); Calcium,Total 8.7 mg/dL (8.5-10.1); Chloride 107 mmol/L (98-107); Creatinine, Serum 1.15 mg/dL (0.55-1.02); EST Glomerular Filtration Rate 48 mL/min (>60); Est Glom Filt Rate - Afr Amer 58 mL/min (>60); Estimated Creatinine Clearance 28.29 ml/min; Glucose 95 mg/dL (74-106); Potassium 4.2 mmol/L (3.5-5.1); Sodium Level 140 mmol/L (136-145)
[2020-12-05 03:02] VITALS: BP 144/94; PULSE 73; RESP 20
[2020-12-05 03:16] VITALS: BP 144/94; PULSE 69; RESP 18; O2SAT 96
--- NOTE | 2020-12-05 23:37 | CT_ITS ---
STUDY: CT ABDOMEN AND PELVIS WITHOUT CONTRAST REASON FOR EXAM: Female, 85 years old. Flank pain RADIATION DOSAGE (If Supplied By Facility): CTDIvol = ( 12.50 ) mGy, DLP = ( 562.07 ) mGycm TECHNIQUE: Transaxial images were obtained from the dome of the diaphragm to the symphysis pubis without oral contrast, and without intravenous contrast. Sagittal and coronal images were reconstructed. Individualized dose optimization techniques were used for this CT. COMPARISON: 08/25/2019 FINDINGS: The visualized lung bases are unremarkable. The visualized portions of the heart are within normal limits. Normal liver. Small anterior right liver cyst/hemangioma redemonstrated Normal gallbladder and extrahepatic biliary system. Normal spleen. Normal pancreas. Normal bilateral adrenal glands. Punctate right upper renal collecting system calculus redemonstrated. Normal left kidney. Normal visualized stomach. Normal small intestine. Normal colon. The appendix is visualized and appears normal. Normal abdominal aorta. Normal inferior vena cava. Right common iliac vein stent. Normal retroperitoneum. Normal urinary bladder. Normal visualized uterus. Normal abdominal wall. There are diffuse degenerative changes of the visualized lumbar spine. CT/Abdomen/Pelvis without Cont IMPRESSION: No acute abnormal finding in the abdomen or pelvis. Redemonstrated punctate nonobstructing right renal calculus. Electronically Signed: Douglas Sanchez MD at 1:19 EDT Tel , Service support ,
== END 2020-12-05 03:18 | disposition home or self-care (01) ==
PROVIDERS: Emergency Provider Emergency Medicine; PCP Family Medicine Geriatric Medicine
DX: I10 Essential (primary) hypertension (principal); N20.0 Calculus of kidney; E78.5 Hyperlipidemia, unspecified; I35.0 Nonrheumatic aortic (valve) stenosis; I25.10 Atherosclerotic heart disease of native coronary artery without angina pectoris; Z86.718 Personal history of other venous thrombosis and embolism; Z79.01 Long term (current) use of anticoagulants; Z79.899 Other long term (current) drug therapy
CPT/HCPCS: 71045; 74176; 80048; 80053; 81001; 84484; 85025; 93005; J7040; A4216

== ENCOUNTER 2020-12-06 15:38 | Emergency (ER) | payer MEDICARE, OTHER, SELFPAY ==
[2020-12-06 15:39] VITALS: BP 190/105; PULSE 71; RESP 18; TEMP 36.4; O2SAT 97; BMI 29.9
--- NOTE | 2020-12-06 16:01 | EX.ED.DYSGE1 ---
HPI History of Present Illness Chief Complaint: Hypertension Informant: patient and family Onset/Context/Timing Onset: Hours Context: Sudden Onset Timing: Intermittent and Waxes and wanes Quality: Blood pressure greater than 200 and retro-orbital pressure Location: Bilateral Current Severity: Mild Maximum Severity: Moderate Worsened by: Presumed elevated blood pressure Relieved by: Patient took a dose of Norvasc 5 mg Associated Symptoms Associated Symptoms: None Narrative Narrative: Patient 85-year-old woman who presents with bilateral retro-orbital pressure associated with hyper tension. She was seen on December 04. She presented for hypertension at that time. Her work-up was unremarkable. She is on lisinopril and Coreg for her blood pressure. She intermittently will take a 5 mg Norvasc tablet if her pressure is out of control. This apparently happens every several months. She denies double vision or blurred vision. She states she had squiggly lines. She noted left eye. Denies ringing or ears, decreased hearing or drainage from ears. She denies trouble with speech or swallowing. Denies neck pain. Denies chest pain or back pain. She denies shortness of breath. She denies nausea or vomiting. She denies paresthesia, anesthesia medics. She denies orthostatic symptoms. She denies trouble with her balance. She is on Coumadin. Her INR was subtherapeutic on the . She is on Coumadin because of remote history of DVT. Prior similar symptoms: Yes Recent Illness/Hospitalization: Yes [facility] Medical History (Updated 12/06/20 @ 17:[address] Elkin Tesfaye MD) Atherosclerotic heart disease of [place] coronary artery without angina pectoris Deep vein thrombosis Essential (primary) hypertension Hyperlipidemia Nonrheumatic aortic (valve) stenosis Home Medications warfarin 4.5 mg PO DAILY 06/12/13 [History Last Taken 11/20/19] cholecalciferol (vitamin D3) 5,000 unit PO DAILY 12/12/17 [History Last Taken 11/20/19] coenzyme Q10 200 mg PO DAILY 12/12/17 [History Last Taken 11/20/19] carvedilol 3.125 mg tablet 3.125 mg PO BID 01/07/20 [History Last Taken Unknown] nitroglycerin 0.4 mg sublingual tablet 0.4 mg SL Q5M PRN #25 tablet 06/19/20 [Rx Last Taken Unknown] lisinopril 10 mg tablet 10 mg PO BID #180 tab 09/22/20 [Rx Last Taken Unknown] hydrochlorothiazide 12.5 mg PO DAILY #30 tab 12/06/20 [Rx Last Taken Unknown] Allergy/AdvReac Type Severity Reaction Status Date / Time azithromycin Allergy Severe Other Verified 12/06/20 15:39 pravastatin AdvReac Severe mylagias Verified 12/06/20 15:39 Family History Other CVA (cerebral vascular accident) Surgical History History of coronary artery stent placement (06/19/01) History of left heart catheterization (07/26/13) Social History (Updated 12/06/20 @ 16:[address] Elkin Tesfaye MD) household members: none Smoking Status: Never smoker alcohol intake: current alcohol intake frequency: other substance use type: does not use ROS ROS ED Constitutional Constitutional ED: Denies chills, fever(s), subjective or sweats Eyes Eyes: Denies blurry vision, change in vision or diplopia ENT ENT ED: Denies ear pain, rhinorrhea or sore throat Cardiovascular Cardiovascular: Denies chest pain, orthopnea, palpitations or racing heartbeat Respiratory/Chest Respiratory/Chest: Denies cough, dyspnea, dyspnea on exertion, orthopnea or sputum Gastrointestinal Gastrointestinal: Denies abdominal pain, diarrhea, melena, nausea or vomiting Genitourinary Genitourinary ED: Denies dysuria, hematuria or urinary frequency Musculoskeletal Musculoskeletal: Denies arthralgias, back pain, myalgias or neck pain Integumentary Denies rash Neurologic Neurologic: Reports headache(s); Denies paresthesias or weakness Endocrine Endocrinology: Denies polydipsia, polyphagia or polyuria Hematologic/Lymphatic Hematologic/Lymphatic: Denies anemia, easy bleeding or easy bruising Allergic/Immunologic Allergic/Immunologic ED: Denies urticaria EXAM Physical Exam Const Vital Signs: 12/06/20 15:39 12/06/20 15:57 12/06/20 17:09 Temperature 97.5 F L Temperature Source Temporal Pulse Rate 71 61 Respiratory Rate 18 15 Respiratory Effort Normal Non-Labored Respiratory Pattern Normal Blood Pressure 190/105 H 158/81 H Blood Pressure Mean 133 106 Pulse Ox 97 Oxygen Delivery Method Room Air Positive well nourished and well developed; Negative for obese, cachectic or contractures General Appearance ED: well developed and NAD; Negative for cachectic, contractures, cyanotic or diaphoretic Nutritional Appearance: Negative for cachectic or obese HEENT HEENT Narrative: Head is atraumatic normocephalic. Ears normal. TMs normal. Nares patent. Uvula midline. No erythema or exudate. Eyes PERRL and EOMs intact bilaterally Eyes Narrative: Patient has peripheral cataracts bilateral. There is no papilledema. Venous pulsations noted bilaterally. Minimal AV nicking noted. General Eye ED: Negative for pale conjunctiva or scleral icterus Neck no lymphadenopathy, supple and no JVD Neck Narrative: There is no carotid bruit. Chest Wall palpation of chest normal Resp normal respiratory effort and clear to auscultation bilaterally Cardio regular rate, regular rhythm, S1 normal heart sound, S2 normal heart sound and no murmurs GI normal to inspection, nondistended, normoactive bowel sounds and non-tender Palpation: soft; Negative for mass Back/Spine no CVA tenderness Extremity normal to inspection General Extremety ED: Negative for edema or tenderness General Extremity: Negative for edema Neuro oriented x3, CN's II-XII intact bilaterally and no sensory deficits noted Neuro Narrative: DTRs symmetric with no clonus or Babinski sign. Sensorium / Orientation: alert Motor Exam: strength 5/5 throughout Psych mental status grossly normal Skin no rashes or lesions noted, no wounds and skin turgor normal MDM MDM MDM Narrative Medical decision making narrative: Will treat blood pressure. Basic metabolic panel was obtained to assess for endorgan injury. Since she had an EKG 3 days ago and there was no evidence of LVH this was not repeated. Weight was obtained 3 days ago and there was no hematuria or proteinuria. Lab Data Attestation: I reviewed the patient's lab results. Labs: Laboratory Results - last 24 hr 12/06/20 12/06/20 12/06/20 16:00 16:00 16:00 WBC 4.9 RBC 4.34 Hgb 14.1 Hct 42.7 MCV 98.4 MCH 32.5 H MCHC 33.0 RDW Std Deviation 48.4 H RDW Coeff of Heladio 13.3 Plt Count 242 MPV 11.1 PT 19.9 H INR 1.8 Sodium 138 Potassium 4.4 Chloride 104 Carbon Dioxide 28.0 Anion Gap 6 BUN 19 H Creatinine 0.87 Estim Creat Clear Calc 37.39 Est GFR (MDRD) Af Amer 80 Est GFR (MDRD) Non-Af 66 BUN/Creatinine Ratio 21.9 H Glucose 91 Calcium 9.4 INR is subtherapeutic. This is for treatment due to a DVT 1520 years ago we will not adjust dose. Blood work is unremarkable. Is no evidence of endorgan injury. Patient be discharged to home. Blood pressure at 1709 was 158/81. Plan is hydrochlorothiazide 12.5 mg every morning and follow-up with For blood pressure check in 1 week Discharge Plan Triage Chief Complaint: Hypertension ED Provider: Elkin Tesfaye Dx/Rx/DC Orders Clinical Impression: Accelerated essential hypertension Instructions: ED Hypertension, Established Prescriptions: New hydrochlorothiazide 12.5 mg tablet 12.5 mg PO DAILY Qty: 30 RF: 2 No Action nitroglycerin 0.4 mg tablet, sublingual 0.4 mg SL Q5M PRN (Reason: ANGINA) Qty: 25 RF: 3 lisinopril 10 mg tablet 10 mg PO BID Qty: 180 RF: 3 warfarin 4 MG tablet 4.5 mg PO DAILY RF: 0 cholecalciferol (vitamin D3) 5,000 UNIT capsule 5,000 unit PO DAILY RF: 0 coenzyme Q10 200 MG capsule 200 mg PO DAILY RF: 0 carvedilol 3.125 mg tablet 3.125 mg PO BID RF: 0 Primary Care Provider: Edgar Crooks Chi Referrals: Edgar Crooks Chi, MD [Primary Care Provider] - 1 Week Activity Restrictions/Additional Instructions: Reasons to return: 1. Systolic blood pressure greater than 200 or diastolic blood pressure greater than 120 2. Strokelike symptoms 3. Shortness of breath 4. Chest pain or severe back pain 5. Trouble with balance Disposition Disposition: Home, Self Care
[2020-12-06 16:18] LABS: Hematocrit 42.7 % (37-47); Hemoglobin 14.1 g/dL (12.0-15.0); Mean Corpuscular Hgb 32.5 pg (27.0-32.0); Mean Corpuscular Volume 98.4 fL (81-99); Mean Platelet Vol. 11.1 fl (6.2-12.0); Platelet Count 242 K/mm3 (150-450); RBC Distribution Width CV 13.3 % (11.6-14.6); RBC Distribution Width SD 48.4 fl (35.1-43.9); Red Blood Count 4.34 M/mm3 (4.2-5.4); White Blood Count 4.9 K/mm3 (4.4-11.0)
[2020-12-06 16:23] LABS: International Normalized Ratio 1.8; Prothrombin Time (Protime)PT. 19.9 SECONDS (11.7-14.9)
[2020-12-06 16:58] LABS: Anion Gap 6 (5-15); BUN 19 mg/dL (7-18); BUN/Creat Ratio 21.9 RATIO (10-20); Calcium,Total 9.4 mg/dL (8.5-10.1); Chloride 104 mmol/L (98-107); Creatinine, Serum 0.87 mg/dL (0.55-1.02); EST Glomerular Filtration Rate 66 mL/min (>60); Est Glom Filt Rate - Afr Amer 80 mL/min (>60); Estimated Creatinine Clearance 37.39 ml/min; Glucose 91 mg/dL (74-106); Potassium 4.4 mmol/L (3.5-5.1); Sodium Level 138 mmol/L (136-145)
[2020-12-06 17:09] VITALS: BP 158/81; PULSE 61; RESP 15
[2020-12-06 17:52] VITALS: BP 179/89; PULSE 77; RESP 16
== END 2020-12-06 17:54 | disposition home or self-care (01) ==
PROVIDERS: Emergency Provider Emergency Medicine; PCP Family Medicine Geriatric Medicine
DX: I10 Essential (primary) hypertension (principal); E78.5 Hyperlipidemia, unspecified; I25.10 Atherosclerotic heart disease of native coronary artery without angina pectoris; I35.0 Nonrheumatic aortic (valve) stenosis; Z86.718 Personal history of other venous thrombosis and embolism; Z79.01 Long term (current) use of anticoagulants; Z79.899 Other long term (current) drug therapy
CPT/HCPCS: 80048; 85027; 85610; 99284; A4216

== ENCOUNTER 2021-06-15 14:14 | Outpatient (CLI) | payer MEDICARE, OTHER, SELFPAY ==
--- NOTE | 2021-06-15 14:23 | RAD_ITS ---
STUDY: XR Hand Min 3 Views REASON FOR EXAM: Female, 86 years old. PAIN TECHNIQUE: XR Hand Min 3 Views LEFT COMPARISON: None. FINDINGS: There is joint space narrowing of the radiocarpal articulation consistent with degenerative arthrosis. Normal distal radioulnar joint. Normal visualized carpal bones. Normal carpal articulations There is degenerative arthrosis of the carpometacarpal (CMC) articulation of the thumb. Normal second through fifth carpometacarpal joints. Normal metacarpi. Normal metacarpophalangeal joint of the thumb. Normal interphalangeal joint of the thumb. Normal proximal and distal phalanges of the thumb. Normal metacarpophalangeal joints of the second through fifth fingers. There is diffuse articular joint space narrowing of the proximal and distal interphalangeal joints of the second through fifth fingers, but without erosive changes or periarticular soft tissue swelling. Normal phalanges of the second through fifth fingers. The soft tissue structures are unremarkable. RAD/Hand Min 3 Views IMPRESSION: Degenerative joint disease of the hand and wrist, as described above. Electronically Signed: Bernard Lea MD at 15:47 EDT Reading Location ID and State: [facility] / [place] , Service support ,
--- NOTE | 2021-06-15 14:23 | RAD_ITS ---
STUDY: XR Hand Min 3 Views REASON FOR EXAM: Female, 86 years old. PAIN TECHNIQUE: XR Hand Min 3 Views RIGHT COMPARISON: None. FINDINGS: There is joint space narrowing of the radiocarpal articulation consistent with degenerative arthrosis. Normal distal radioulnar joint. Normal visualized carpal bones. Normal carpal articulations There is degenerative arthrosis of the carpometacarpal (CMC) articulation of the thumb. Normal second through fifth carpometacarpal joints. Normal metacarpi. Normal metacarpophalangeal joint of the thumb. Normal interphalangeal joint of the thumb. Normal proximal and distal phalanges of the thumb. Normal metacarpophalangeal joints of the second through fifth fingers. There is diffuse articular joint space narrowing of the proximal and distal interphalangeal joints of the second through fifth fingers, but without erosive changes or periarticular soft tissue swelling. Normal phalanges of the second through fifth fingers. The soft tissue structures are unremarkable. RAD/Hand Min 3 Views IMPRESSION: Degenerative joint disease of the hand and wrist, as described above. Electronically Signed: Bernard Lea MD at 15:47 EDT Reading Location ID and State: [facility] [place] , Service support ,
--- NOTE | 2021-06-15 14:23 | RAD_ITS ---
STUDY: XR Shoulder Min 2 Views REASON FOR EXAM: Female, 86 years old. PAIN TECHNIQUE: XR Shoulder Min 2 Views LEFT COMPARISON: None. FINDINGS: Normal glenohumeral articulation. Normal acromioclavicular joint. Normal acromion. Normal humeral head and visualized proximal humerus. The soft tissue structures are unremarkable. Normal visualized pulmonary apex. RAD/Shoulder min 2 Views IMPRESSION: There are no acute findings of the shoulder. Electronically Signed: Bernard Lea MD at 15:49 EDT ,
--- NOTE | 2021-06-15 14:23 | RAD_ITS ---
STUDY: XR Shoulder Min 2 Views REASON FOR EXAM: Female, 86 years old. PAIN TECHNIQUE: XR Shoulder Min 2 Views RIGHT COMPARISON: None. FINDINGS: Normal glenohumeral articulation. Normal acromioclavicular joint. Normal acromion. Normal humeral head and visualized proximal humerus. The soft tissue structures are unremarkable. Normal visualized pulmonary apex. RAD/Shoulder min 2 Views IMPRESSION: There are no acute findings of the shoulder. Electronically Signed: Bernard Lea MD at 15:49 EDT ,
--- NOTE | 2021-06-15 14:30 | RAD_ITS ---
STUDY: XR Pelvis 1 or 2 Views 06/15/2021 2:33 PM REASON FOR EXAM: Female, 86 years old. PAIN TECHNIQUE: XR Pelvis 1 or 2 Views COMPARISON: None FINDINGS: There is a non-specific bowel gas pattern. Normal visualized soft tissue structures. There are degenerative changes of the lumbar spine. Right stent noted. Normal bilateral iliac wings, sacroiliac joints and visualized sacrum. Normal visualized bilateral superior and inferior pubic rami. Normal pubic symphysis. Normal ischial tuberosities. Normal visualized right femoral head. 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 There is mild articular joint space narrowing of the right hip. Metal surgical clips along the medial right thigh. Normal visualized left femoral head. There is cortical sclerosis with sub-cortical cyst formation of the left acetabulum. There is mild articular joint space narrowing of the left hip. RAD/Pelvis 1 or 2 Views IMPRESSION: Degenerative findings of the hips. Electronically Signed: Bernard Lea MD at 15:49 EDT ,
[2021-06-15 18:19] LABS: ALB/GLOB Ratio 0.8 RATIO (0.9-2.4); AST(SGOT) 18 U/L (15-37); Alanine Aminotransfer ALT/SGPT 15 U/L (13-56); Albumin, Serum 3.3 g/dL (3.2-5.0); Alkaline Phosphatase 61 U/L (45-117); Anion Gap 6 (5-15); BUN 21 mg/dL (7-18); BUN/Creat Ratio 29.5 RATIO (10-20); Calcium,Total 9.2 mg/dL (8.5-10.1); Chloride 99 mmol/L (98-107); Creatinine, Serum 0.71 mg/dL (0.55-1.02); EST Glomerular Filtration Rate 83 mL/min (>60); Est Glom Filt Rate - Afr Amer 100 mL/min (>60); Globulin 4.3 g/dL (2.2-4.2); Glucose 89 mg/dL (74-106); Protein, Total 7.6 g/dL (6.4-8.2); Rheumatoid Factor < 10.0 IU/mL (<15); Sodium Level 134 mmol/L (136-145)
[2021-06-15 19:30] LABS: Absolute Lymphocyte Count 1.54 X10^3/uL (0.83-4.51); Absolute Neutrophil Count 2.9 X10^3/uL (2.0-7.7); Basophil# 0.02 X10^3/uL; Basophil% 0.4 % (0-1); Hematocrit 37.2 % (37-47); Hemoglobin 12.1 g/dL (12.0-15.0); Lymphocyte # 1.54 X10^3/ul (0.83-4.51); Lymphocyte % 30.3 % (19-41); Mean Corp Hgb Conc 32.5 g/dL (32-36); Mean Corpuscular Hgb 31.6 pg (27.0-32.0); Mean Corpuscular Volume 97.1 fL (81-99); Mean Platelet Vol. 11.2 fl (6.2-12.0); Monocyte# 0.55 X10^3/uL; Monocyte% 10.8 % (0-10); NRBC Flagged by Analyzer 0 % (0-5); Neutrophil # 2.87 X10^3/uL (2.7-7.7); Neutrophil % 56.3 % (47-70); Platelet Count 320 K/mm3 (150-450); RBC Distribution Width SD 46.1 fl (35.1-43.9); Red Blood Count 3.83 M/mm3 (4.2-5.4); White Blood Count 5.1 K/mm3 (4.4-11.0)
[2021-06-15 19:34] LABS: Erythrocyte Sedimentation Rate 38 mm/hr (0-30)
[2021-06-16 08:20] LABS: Hepatitis B Surface Antibody Non-Reactive; Hepatitis B Surface Antigen Non-Reactive (Nonreactive); Hepatitis C Antibody Non-Reactive (Nonreactive)
[2021-06-17 21:26] LABS: ANTINUCLEAR ANTIBODIES DIRECT Negative (Negative)
[2021-06-18 08:26] LABS: CCP IgG Antibodies 2 units (0-19)
== END 2021-06-15 23:59 | disposition home or self-care (01) ==
PROVIDERS: Referring Provider Internal Medicine Rheumatology; Visit Provider Internal Medicine Rheumatology
DX: M06.4 Inflammatory polyarthropathy (principal); M19.041 Primary osteoarthritis, right hand; M47.897 Other spondylosis, lumbosacral region; I10 Essential (primary) hypertension; E78.5 Hyperlipidemia, unspecified; I25.10 Atherosclerotic heart disease of native coronary artery without angina pectoris; Z86.718 Personal history of other venous thrombosis and embolism; I35.0 Nonrheumatic aortic (valve) stenosis; M21.42 Flat foot [pes planus] (acquired), left foot; M21.41 Flat foot [pes planus] (acquired), right foot
CPT/HCPCS: 36415; 72170; 73030; 73130; 80053; 85025; 85652; 86038; 86140; 86200; 86431; 86706; 86803; 87340

== ENCOUNTER → 2021-12-28 | Outpatient (CLI) | payer MEDICARE, OTHER, SELFPAY ==
--- NOTE | 2021-12-28 07:51 | ECHOD_ITS ---
Reason For Study: Procedure This was a 2D Doppler, Color Flow transthoracic echocardiogram. Exam performed in department. Left Ventricle Normal LV size. Sigmoid septum. Left ventricular systolic function is normal. The estimated ejection fraction is 65 %. Stage 1 diastolic dysfunction. No regional wall motion abnormalities noted. Right Ventricle Normal RV size. Normal systolic function. Atria The left atrium is moderately enlarged. Normal right atrium. Mitral Valve There is mild to moderate mitral annular calcification. Mild (1+) eccentric mitral valve insufficiency. Tricuspid Valve Normal tricuspid valve. Mild (1+) tricuspid valve insufficiency. Pulmonary artery systolic pressure is 37 mmHg. Aortic Valve Trisinus/trileaflet aortic valve. Moderate focal aortic valve calcification. Peak aortic valve gradient 55 mmHg. Mean aortic valve gradient 33 mmHg. Calculated aortic valve area (continuity equation) is 0.9 cm2. Moderate aortic stenosis. Mild (1+) aortic valve insufficiency. Pulmonic Valve Normal pulmonic valve. Great Vessels Normal aortic root. The pulmonary artery is normal size. Normal inferior vena cava. Pericardium/Pleural No pericardial effusion. MMode/2D Measurements & Calculations LVOT diam: 2.1 cm Ao root diam: 3.2 cm LAV(MOD-sp4): 129.5 ml LVOT area: 3.6 cm2 SV(MOD-sp4): 43.5 ml SV(sp4-el): 46.4 ml LVAd ap4: 26.3 cm2 LVLd ap4: 7.4 cm EDV(MOD-sp4): 75.0 ml EDV(sp4-el): 79.6 ml LVAs ap4: 14.3 cm2 LVLs ap4: 5.2 cm ESV(MOD-sp4): 31.5 ml ESV(sp4-el): 33.2 ml EF(MOD-sp4): 58.0 % EF(sp4-el): 58.3 % LA A4 area: 31.9 cm2 RA A4 area: 11.4 cm2 Doppler Measurements & Calculations MV E max isauro: 88.0 cm/sec Lat Peak E' Isauro: 4.0 cm/sec Med Peak E' Isauro: 4.0 cm/sec MV A max isauro: 139.0 cm/sec E/E' lat: 21.8 E/E' med: 21.8 MV E/A: 0.63 MV V2 max: 146.9 cm/sec Ao V2 max: 372.0 cm/sec LV V1 max: 93.8 cm/sec MV max P.6 mmHg Ao max P.4 mmHg LV V1 max P.5 mmHg MV V2 mean: 73.9 cm/sec Ao V2 mean: 276.6 cm/sec LV V1 mean P.7 mmHg MV mean P.6 mmHg Ao mean P.5 mmHg LV V1 mean: 58.8 cm/sec MV V2 VTI: 32.1 cm Ao V2 VTI: 96.3 cm LV V1 VTI: 22.7 cm MVA(VTI): 2.6 cm2 GARRET(I,D): 0.85 cm2 GARRET(V,D): 0.91 cm2 MR max isauro: 626.9 cm/sec SV(LVOT): 82.2 ml TR max isauro: 288.8 cm/sec MR max P.2 mmHg TR max P.4 mmHg ECHO/Echo Complete Interpretation Summary Normal LV size. Left ventricular systolic function is normal. The estimated ejection fraction is 65 %. Stage 1 diastolic dysfunction. Moderate focal aortic valve calcification. Moderate aortic stenosis. Calculated aortic valve area (continuity equation) is 0.9 cm2. Mean aortic valve gradient 33 mmHg. Compared to the previous the AV is slightly worse Ordering Physician: Octavio Lopez Referring Physician: Octavio Lopez Performed By: Sophia Cadena RCS
== END | disposition home or self-care (01) ==
LOC: CVS 07:51
PROVIDERS: Referring Provider Internal Medicine Cardiovascular Disease; Visit Provider Internal Medicine Cardiovascular Disease
DX: I35.0 Nonrheumatic aortic (valve) stenosis (principal)
CPT/HCPCS: 93306

== ENCOUNTER 2022-03-09 22:46 | Emergency (ER) | payer MEDICARE, OTHER, SELFPAY ==
[2022-03-09 22:47] VITALS: BP 191/97; PULSE 91; RESP 18; TEMP 35.9; O2SAT 94; BMI 30.5
[2022-03-09 22:59] VITALS: BP 184/93; PULSE 88; RESP 16; O2SAT 96
--- NOTE | 2022-03-09 23:20 | EKG12_ITS ---
Test Reason : SOB Blood Pressure : / mmHG Vent. Rate : 075 BPM Atrial Rate : 075 BPM P-R Int : 156 ms QRS Dur : 080 ms QT Int : 398 ms P-R-T Axes : 040 039 034 degrees QTc Int : 444 ms Normal sinus rhythm Normal ECG Confirmed by ANGELA PAEZ, IVAN ([id number]), material expeditor CANDIE PEMBERTON ([id number]) on 03/11/2022 9:38:59 AM Referred By: Confirmed By:IVAN MILLER MD
--- NOTE | 2022-03-09 23:27 | EX.ED.DYSGE1 ---
HPI History of Present Illness Chief Complaint: Cough Informant: patient and family Onset/Context/Timing Onset: Days (3 days) Context: Gradual Onset Current Severity: Mild Maximum Severity: Mild Narrative Narrative: Patient presents with 3-day history of cough. She denies shortness of breath. Daughter states that she listened to her mom's lungs and heard some wheezing. Daughter is leaving town in a few days and wanted to make sure mom is okay. Patient states that she did have some slight chest pressure earlier but resolved with Pepcid and felt like reflux. She denies history of asthma or respiratory problems. [facility] Medical History Atherosclerotic heart disease of [place] coronary artery without angina pectoris Deep vein thrombosis Essential (primary) hypertension Hyperlipidemia Nonrheumatic aortic (valve) stenosis Obesity Home Medications cholecalciferol (vitamin D3) 125 mcg (5,000 unit) capsule 5,000 unit PO DAILY SUPPLEMENT 12/12/17 [History Last Taken 11/20/19] coenzyme Q10 200 mg capsule 200 mg PO DAILY SUPPLEMENT 12/12/17 [History Last Taken 11/20/19] nitroglycerin 0.4 mg sublingual tablet 0.4 mg sublingual Q5M PRN ANGINA #25 tabs 06/19/20 [Rx Last Taken Unknown] carvedilol 3.125 mg tablet 3.125 mg PO BID #180 tabs 03/17/21 [Rx Last Taken Unknown] apixaban 2.5 mg tablet (Eliquis) 2.5 mg PO BID 07/09/21 [History Last Taken Unknown] desoximetasone 0.25 % topical cream 1 applic topical DAILY PRN Fill as courtesy until pt obtains new Primary #15 grams 09/16/21 [Rx Last Taken Unknown] lisinopril 10 mg tablet 10 mg PO DAILY BP #180 tabs 12/09/21 [Rx Last Taken Unknown] Allergy/AdvReac Type Severity Reaction Status Date / Time azithromycin Allergy Severe Other Verified 03/09/22 22:49 pravastatin AdvReac Severe mylagias Verified 03/09/22 22:49 Family History Other CVA (cerebral vascular accident) Surgical History History of coronary artery stent placement (06/19/01) History of left heart catheterization (07/26/13) Social History household members: none Smoking Status: Never smoker alcohol intake: current alcohol intake frequency: other substance use type: does not use ROS ROS ED Constitutional Constitutional ED: Denies chills or fever(s) Eyes Eyes: Denies change in vision or discharge from eye(s) ENT ENT ED: Denies discharge from eye(s), rhinorrhea or sore throat Cardiovascular Cardiovascular: Reports chest pain; Denies palpitations Respiratory/Chest Respiratory/Chest: Reports cough; Denies dyspnea Gastrointestinal Gastrointestinal: Denies abdominal pain, diarrhea, nausea or vomiting Genitourinary Genitourinary ED: Denies difficulty urinating or dysuria Musculoskeletal Musculoskeletal: Denies back pain or extremity pain Integumentary Denies Abrasions or rash Neurologic Neurologic: Denies headache(s) or weakness Allergic/Immunologic Allergic/Immunologic ED: Denies lip swelling or urticaria EXAM Physical Exam Const Vital Signs: 03/09/22 22:47 03/09/22 22:59 03/09/22 22:59 Temperature 96.7 F L Temperature Source Temporal Pulse Rate 91 88 Respiratory Rate 18 16 Respiratory Effort Normal Respiratory Depth Normal Respiratory Pattern Normal Blood Pressure 191/97 H 184/93 H Blood Pressure Mean 128 123 Pulse Ox 94 96 Oxygen Delivery Method Room Air Room Air Positive well nourished and well developed General Appearance ED: well developed HEENT Reports normocephalic and head/scalp atraumatic Eyes PERRL and EOMs intact bilaterally Neck supple Chest Wall inspection of chest normal and palpation of chest normal Resp normal respiratory effort Resp Narrative: Lung sounds slightly diminished at the right base. Cardio regular rate and regular rhythm Heart Sounds: murmur GI normal to inspection, nondistended, normoactive bowel sounds Palpation: soft Extremity normal to inspection Neuro oriented x3 and no sensory deficits noted Sensorium / Orientation: alert Motor Exam: strength 5/5 throughout Psych mental status grossly normal Skin no rashes or lesions noted MDM MDM MDM Narrative Medical decision making narrative: EKG and chest x-ray obtained. Patient given a DuoNeb treatment. Swab for COVID and influenza ordered. Lab Data Attestation: I reviewed the patient's lab results. Radiography Chest X-Ray - ED: 1 View, Read by ED Physician, Chronic Changes and No Infiltrates Diagnostic Testing: Clinical Impression(s) from Imaging Studies Chest X-Ray 03/09/22 23:30 IMPRESSION: No radiographic evidence of acute cardiopulmonary disease. Electronically Signed: Syed Pepe MD at 23:49 EST Reading Location ID and State: [facility] / MD Tel , Service support , EKG Initial EKG: Attestation: I personally reviewed and interpreted this EKG as follows: Interpretation: Sinus Rhythm (Sinus at 75 with no acute ischemia.) Treatment and Re-Evaluation Narrative: Repeat evaluation patient resting comfortably. EKG and chest x-ray are unremarkable per my interpretation. Radiology interpretation is also reviewed. Swab for COVID and influenza is negative. On repeat auscultation patient now does have some expiratory wheezes worse on the right. She will be given albuterol MDI for home. I believe she is another viral illness that is causing some slight bronchospasm. There is no evidence of pneumonia. She will continue supportive care. Discharge Plan Triage Chief Complaint: Cough ED Provider: Reta Brown Dx/Rx/DC Orders Clinical Impression: Viral URI with cough Instructions: ED Bronchitis, No Antibiotic (Adult) Prescriptions: No Action nitroglycerin 0.4 mg tablet, sublingual 0.4 mg SL Q5M PRN (Reason: ANGINA) Qty: 25 3RF Eliquis 2.5 mg tablet 2.5 mg PO BID lisinopril 10 mg tablet 10 mg PO DAILY Qty: 180 3RF cholecalciferol (vitamin D3) 5,000 UNIT capsule 5,000 unit PO DAILY coenzyme Q10 200 MG capsule 200 mg PO DAILY carvedilol 3.125 mg tablet 3.125 mg PO BID Qty: 180 3RF Rx Instructions: must administer with a meal/food desoximetasone 0.25 % cream 1 applic topical DAILY PRN (Reason: Fill as courtesy until pt obtains new Primary Dr. ) Qty: 15 1RF Primary Care Provider: Care Physician,No Primary Referrals: Juan Manuel,Eliane, DO [Med Staff - Board Writer] - As Needed Care Physician,No Primary [Primary Care Provider] - Activity Restrictions/Additional Instructions: Albuterol MDI: 2 puffs every 4 hours as needed for cough/wheezing. Disposition Disposition: Home, Self Care
--- NOTE | 2022-03-09 23:30 | RAD_ITS ---
EXAM: XR CHEST, 1 VIEW CLINICAL INDICATION: cough TECHNIQUE: Frontal view of the chest. This report was created using [employer] report generation technology. COMPARISON: 12/04/2020 FINDINGS: LUNGS AND PLEURAL SPACES: Unremarkable. No consolidation or edema. No pneumothorax. No effusion. HEART: Unremarkable. Cardiac silhouette not enlarged. MEDIASTINUM: Central airways and mediastinal contour are unremarkable. BONES/JOINTS: Unremarkable. SOFT TISSUES: Unremarkable. RAD/Chest 1 View (Portable) IMPRESSION: No radiographic evidence of acute cardiopulmonary disease. Electronically Signed: Syed Pepe MD at 23:49 EST ,
[2022-03-09] MEDS: Ipratropium/Albuterol Sulfate 3 ML AMPUL.NEB INHALATION (23:45)
[2022-03-10] MEDS: Albuterol Sulfate 8 gm Inhaler (60 puffs) 2 PUFF INHALATION (00:25)
== END 2022-03-10 00:32 | disposition home or self-care (01) ==
PROVIDERS: Emergency Provider Emergency Medicine; Visit Provider Emergency Medicine
DX: J06.9 Acute upper respiratory infection, unspecified (principal); I25.10 Atherosclerotic heart disease of native coronary artery without angina pectoris; I10 Essential (primary) hypertension; E78.5 Hyperlipidemia, unspecified; Z20.822 Contact with and (suspected) exposure to COVID-19
CPT/HCPCS: 71045; 87428; 93005; 99282

== ENCOUNTER → 2022-12-15 | Outpatient (CLI) | payer MEDICARE, OTHER, SELFPAY ==
--- NOTE | 2022-12-15 13:51 | ECHOD_ITS ---
Reason For Study: Aortic Stenosis Procedure This was a 2D Doppler, Color Flow transthoracic echocardiogram. Technically difficult study, patient was unable to lay on left side due to sharp shoulder pain. All images taken with patient supine. Exam performed in department. Left Ventricle Normal LV size. Left ventricular systolic function is normal. The estimated ejection fraction is 65 %. Stage 1 diastolic dysfunction. No regional wall motion abnormalities noted. Right Ventricle Normal RV size. Normal systolic function. Mitral Valve There is moderate mitral annular calcification. Tricuspid Valve Normal tricuspid valve. Mild (1+) tricuspid valve insufficiency. Pulmonary artery systolic pressure is 34 mmHg. Aortic Valve Trisinus/trileaflet aortic valve. Moderate focal aortic valve calcification. Peak aortic valve gradient 54 mmHg. Moderate aortic stenosis. Mean aortic valve gradient 34 mmHg. Mild (1+) aortic valve insufficiency. Pulmonic Valve Normal pulmonic valve. Great Vessels Normal aortic root. The pulmonary artery is normal size. Normal inferior vena cava. Pericardium/Pleural No pericardial effusion. MMode/2D Measurements & Calculations LVOT diam: 2.0 cm LA dimension: 3.5 cm LAV(MOD-bp): 72.1 ml LVOT area: 3.0 cm2 LAV(MOD-bp) Indexed: 40.8 ml/m2 LAV(MOD-sp2): 72.5 ml LAV(MOD-sp4): 61.3 ml LA A4 area: 20.6 cm2 RA A4 area: 11.8 cm2 Time Measurements MV dec time: 0.46 sec Doppler Measurements & Calculations MV E max isauro: 64.6 cm/sec Lat Peak E' Isauro: 3.8 cm/sec Med Peak E' Isauro: 3.2 cm/sec MV A max isauro: 119.8 cm/sec E/E' lat: 16.9 E/E' med: 20.1 MV E/A: 0.54 MV V2 max: 146.9 cm/sec MV P1/2t max isauro: 74.5 cm/sec Ao V2 max: 365.7 cm/sec MV max P.6 mmHg MV P1/2t: 153.4 msec Ao max P.9 mmHg MV V2 mean: 68.2 cm/sec MV dec slope: 142.2 cm/sec2 Ao V2 mean: 275.4 cm/sec MV mean P.3 mmHg Ao mean P.1 mmHg MV V2 VTI: 34.7 cm MVA(P1/2t): 1.4 cm2 Ao V2 VTI: 89.7 cm MVA(VTI): 1.6 cm2 AV (velocity ratio): 0.20 GARRET(I,D): 0.61 cm2 GARRET(V,D): 0.62 cm2 AI max isauro: 319.5 cm/sec LV V1 max: 74.3 cm/sec MR max isauro: 615.2 cm/sec AI max P.9 mmHg LV V1 max P.2 mmHg MR max P.4 mmHg LV V1 mean P.2 mmHg AI dec slope: 234.5 cm/sec2 LV V1 mean: 51.4 cm/sec AI P1/2t: 398.9 msec LV V1 VTI: 17.9 cm SV(LVOT): 54.5 ml PA V2 max: 81.4 cm/sec TR max isauro: 271.7 cm/sec TR max P.5 mmHg ECHO/Echo Complete Interpretation Summary Normal LV size. Left ventricular systolic function is normal. The estimated ejection fraction is 65 %. Stage 1 diastolic dysfunction. Moderate aortic stenosis. Moderate focal aortic valve calcification. Mean aortic valve gradient 34 mmHg. Compared to the previous the above valve area and gradients are unchanged. Ordering Physician: Priyanka Marks Referring Physician: Priyanka Marks Performed By: Rizwan Boswell RCS
== END | disposition home or self-care (01) ==
LOC: CVS 13:49
PROVIDERS: Referring Provider Nurse Practitioner Gerontology; Visit Provider Nurse Practitioner Gerontology
DX: I35.0 Nonrheumatic aortic (valve) stenosis (principal)
CPT/HCPCS: 93306

== ENCOUNTER 2023-01-23 08:44 | Emergency (ER) | payer MEDICARE, OTHER, SELFPAY ==
[2023-01-23 08:46] VITALS: BP 222/105; PULSE 79; RESP 16; TEMP 35.8; O2SAT 98; BMI 30.5
[2023-01-23 09:18] VITALS: BP 201/92; PULSE 69; RESP 16; O2SAT 96
[2023-01-23 09:20] LABS: Absolute Lymphocyte Count 1.39 X10^3/uL (0.83-4.51); Absolute Neutrophil Count 3.4 X10^3/uL (2.0-7.7); Basophil# 0.03 X10^3/uL; Basophil% 0.6 % (0-1); Eosinophil# 0.04 X10^3/uL; Eosinophils% 0.8 % (0-5); Hemoglobin 12.5 g/dL (12.0-15.0); Lymphocyte # 1.39 X10^3/ul (0.83-4.51); Lymphocyte % 26.2 % (19-41); Mean Corp Hgb Conc 32.1 g/dL (32-36); Mean Corpuscular Hgb 31.1 pg (27.0-32.0); Mean Platelet Vol. 10.7 fl (6.2-12.0); Monocyte# 0.43 X10^3/uL; Monocyte% 8.1 % (0-10); NRBC Flagged by Analyzer 0 % (0-5); Neutrophil # 3.39 X10^3/uL (2.7-7.7); Neutrophil % 63.9 % (47-70); Platelet Count 225 K/mm3 (150-450); RBC Distribution Width SD 49.8 fl (35.1-43.9); Red Blood Count 4.02 M/mm3 (4.2-5.4); White Blood Count 5.3 K/mm3 (4.4-11.0)
--- NOTE | 2023-01-23 09:20 | RAD_ITS ---
INDICATION: chest pain EXAMINATION/TECHNIQUE: X-RAY - XR Chest 1 View COMPARISON: August 21, 2020 and March 09, 2022 FINDINGS: LINES/DEVICES: None. LUNGS: No consolidation, edema or effusion. No pneumothorax. MEDIASTINUM AND CARDIOVASCULAR STRUCTURES: Cardiac silhouette not enlarged. There is a stable right paratracheal opacity. BONES AND SOFT TISSUES: Unremarkable. RAD/Chest 1 View (Portable) IMPRESSION: No radiographic evidence of acute cardiopulmonary disease. Electronically Signed: Maureen Angeles MD at 9:33 EST ,
--- NOTE | 2023-01-23 09:33 | EX.ED.DYSGE1 ---
HPI History of Present Illness Chief Complaint: Hypertension Narrative Narrative: 87-year-old female with history of hypertension coming with elevated blood pressures. She states her blood pressure was in the 200s over 100 at home. She states he was having palpitations at home. Patient is on carvedilol 3.125 mg p.o. twice daily. Patient has not missed any doses. Last night she noted her blood pressure was high. This morning she checked it again and since it was high she took half of the leftover Norvasc she does not know what doses. She also took a lisinopril 10 mg. On arrival her blood pressure is 110/93. Patient denies headache. Denies chest pain. Denies shortness of breath. States currently feels well. States she has not taken lisinopril in over a year and she occasionally takes the Norvasc when her pressures are high. But she also notes that her pressures have dropped sometimes so she tries to keep away from these. [facility] Medical History Atherosclerotic heart disease of [place] coronary artery without angina pectoris Deep vein thrombosis Essential (primary) hypertension Hyperlipidemia Nonrheumatic aortic (valve) stenosis Obesity Home Medications cholecalciferol (vitamin D3) 125 mcg (5,000 unit) capsule 5,000 unit PO DAILY SUPPLEMENT 12/12/17 [History Last Taken 11/20/19] coenzyme Q10 200 mg capsule 200 mg PO DAILY SUPPLEMENT 12/12/17 [History Last Taken 11/20/19] nitroglycerin 0.4 mg sublingual tablet 0.4 mg sublingual Q5M PRN ANGINA #25 tabs 06/19/20 [Rx Last Taken Unknown] apixaban 2.5 mg tablet (Eliquis) 2.5 mg PO BID 07/09/21 [History Last Taken Unknown] desoximetasone 0.25 % topical cream 1 applic topical DAILY PRN Fill as courtesy until pt obtains new Primary #15 grams 09/16/21 [Rx Last Taken Unknown] carvedilol 3.125 mg tablet 3.125 mg PO BID #180 tabs 06/02/22 [Rx Last Taken Unknown] ezetimibe 10 mg tablet (Zetia) 10 mg PO DAILY #30 tabs 12/06/22 [Rx Last Taken Unknown] famotidine 10 mg tablet (Pepcid AC) 10 mg PO ONCE PRN 12/06/22 [History Last Taken Unknown] amlodipine 5 mg tablet 5 mg PO DAILY #30 tabs 01/23/23 [Rx Last Taken Unknown] Allergy/AdvReac Type Severity Reaction Status Date / Time azithromycin Allergy Severe Other Verified 12/06/22 09:05 pravastatin AdvReac Severe mylagias Verified 12/06/22 09:05 Family History Other CVA (cerebral vascular accident) Surgical History History of coronary artery stent placement (06/19/01) History of left heart catheterization (07/26/13) Social History household members: none Smoking Status: Never smoker alcohol intake: current alcohol intake frequency: other substance use type: does not use EXAM Physical Exam Const Vital Signs: 01/23/23 08:46 01/23/23 09:18 01/23/23 09:18 Temperature 96.5 F L Temperature Source Temporal Pulse Rate 79 69 Respiratory Rate 16 16 Respiratory Pattern Blood Pressure 222/105 H 201/92 H Blood Pressure Mean 144 128 Pulse Ox 98 96 96 Oxygen Delivery Method Room Air Room Air Room Air 01/23/23 09:19 Temperature Temperature Source Pulse Rate Respiratory Rate Respiratory Pattern Normal Blood Pressure Blood Pressure Mean Pulse Ox Oxygen Delivery Method General Appearance ED: Negative for pallor HEENT Reports normocephalic, head/scalp atraumatic and moist mucous membranes Eyes PERRL and EOMs intact bilaterally Neck no lymphadenopathy and supple Resp normal respiratory effort and clear to auscultation bilaterally Auscultation: Negative for rales, rhonchi or wheezes Cardio regular rate and regular rhythm GI Palpation: soft Narrative: Deferred Extremity normal to inspection General Extremety ED: Negative for edema or tenderness General Extremity: Negative for edema Neuro oriented x3 and CN's II-XII intact bilaterally Sensorium / Orientation: alert Motor Exam: strength 5/5 throughout Psych mental status grossly normal Attitude: No agitated Skin no rashes or lesions noted and no wounds General Skin Exam: Negative for jaundice or pallor MDM MDM MDM Narrative Medical decision making narrative: Patient presenting with elevated blood pressure. She denies headache. She had some palpitations earlier. Differential includes ACS, hypertensive emergency, dehydration, electrolyte normalities, A-fib. CBC will be obtained to assess white blood cell count, hemoglobin, platelets. BMP to assess renal function, electrolytes. High-sensitivity troponin and EKG will be obtained to assess for ischemia/dysrhythmia. Chest x-ray to rule out pneumonia or other acute abnormalities. Patient's blood pressures come down to 179/93 so I will continue to monitor. She denies any other red flag signs or symptoms. BC shows no leukocytosis. Hemoglobin stable at 12.5. Renal function electrolytes within normal limits. High-sensitivity troponin is 11. EKG on my interpretation shows a normal sinus rhythm with a ventricular rate of 77 bpm without sign of ischemic change or ectopy. Chest x-ray my interpretation is no acute process. Since her blood pressure is currently stable discussed the case with Dr. Garcia who recommended starting amlodipine 5 mg and keeping a blood pressure diary. This was all discussed with the patient and she is amenable to this. She is discharged stable condition. Impression: 1. Hypertension 2. Palpitations Lab Data Attestation: I reviewed the patient's lab results. Labs: Laboratory Results - last 24 hr 01/23/23 09:15 WBC 5.3 RBC 4.02 L Hgb 12.5 Hct 39.0 MCV 97.0 MCH 31.1 MCHC 32.1 RDW Std Deviation 49.8 H RDW Coeff of Heladio 14.0 Plt Count 225 MPV 10.7 Immature Gran % (Auto) 0.400 Neut % (Auto) 63.9 Lymph % (Auto) 26.2 [place] % (Auto) 8.1 Eos % (Auto) 0.8 Baso % (Auto) 0.6 Absolute Neuts (auto) 3.4 Absolute Lymphs (auto) 1.39 Nucleated RBC % 0 Sodium 138 Potassium 4.2 Chloride 106 Carbon Dioxide 29.0 Anion Gap 3 L BUN 25 H Creatinine 0.91 Estim Creat Clear Calc 34.45 Est GFR (MDRD) Af Amer 75 Est GFR (MDRD) Non-Af 62 BUN/Creatinine Ratio 27.4 H Glucose 98 Calcium 9.1 Troponin I High Sens 11 Radiography Diagnostic Testing: Clinical Impression(s) from Imaging Studies Chest X-Ray 01/23/23 09:20 IMPRESSION: No radiographic evidence of acute cardiopulmonary disease. Electronically Signed: Maureen Angeles MD at 9:33 EST , Discharge Plan Triage Chief Complaint: Hypertension ED Provider: Mario Cruz Dx/Rx/DC Orders Instructions: ED Hypertension, Established, ED Palpitations Prescriptions: New amlodipine 5 mg tablet 5 mg PO DAILY Qty: 30 0RF No Action nitroglycerin 0.4 mg tablet, sublingual 0.4 mg SL Q5M PRN (Reason: ANGINA) Qty: 25 3RF Eliquis 2.5 mg tablet 2.5 mg PO BID famotidine [Pepcid AC] 10 mg tablet 10 mg PO ONCE PRN ezetimibe [Zetia] 10 mg tablet 10 mg PO DAILY Qty: 30 11RF cholecalciferol (vitamin D3) 5,000 UNIT capsule 5,000 unit PO DAILY coenzyme Q10 200 MG capsule 200 mg PO DAILY desoximetasone 0.25 % cream 1 applic topical DAILY PRN (Reason: Fill as courtesy until pt obtains new Primary Dr. ) Qty: 15 1RF carvedilol 3.125 mg tablet 3.125 mg PO BID Qty: 180 3RF Rx Instructions: must administer with a meal/food Primary Care Provider: Care Physician,No Primary Referrals: Octavio Lopez MD [Med Staff - Active Staff] - 3-5 Days Care Physician,No Primary [Primary Care Provider] - Disposition Disposition: Home, Self Care
[2023-01-23 09:37] LABS: Anion Gap 3 (5-15); BUN 25 mg/dL (7-18); BUN/Creat Ratio 27.4 RATIO (10-20); Calcium,Total 9.1 mg/dL (8.5-10.1); Chloride 106 mmol/L (98-107); Creatinine, Serum 0.91 mg/dL (0.55-1.02); EST Glomerular Filtration Rate 62 mL/min (>60); Est Glom Filt Rate - Afr Amer 75 mL/min (>60); Estimated Creatinine Clearance 34.45 ml/min; Glucose 98 mg/dL (74-106); Potassium 4.2 mmol/L (3.5-5.1); Sodium Level 138 mmol/L (136-145); Troponin-I HS 11 pg/mL (3.0-54.0)
[2023-01-23 10:58] VITALS: BP 174/82; PULSE 72; RESP 14; O2SAT 99
== END 2023-01-23 10:59 | disposition home or self-care (01) ==
PROVIDERS: Emergency Provider Student in an Organized Health Care Education/Training Program; Visit Provider Student in an Organized Health Care Education/Training Program
DX: I10 Essential (primary) hypertension (principal); R00.2 Palpitations; I25.10 Atherosclerotic heart disease of native coronary artery without angina pectoris; E78.5 Hyperlipidemia, unspecified; Z79.899 Other long term (current) drug therapy; Z79.01 Long term (current) use of anticoagulants; Z86.718 Personal history of other venous thrombosis and embolism; Z95.5 Presence of coronary angioplasty implant and graft
CPT/HCPCS: 71045; 80048; 84484; 85025; 93005; 99284; A4216

== ENCOUNTER → 2023-08-12 | Outpatient (CLI) | payer MEDICARE, OTHER, SELFPAY ==
[2023-08-12 10:19] LABS: Hematocrit 40.6 % (37-47); Hemoglobin 12.9 g/dL (12.0-15.0); Mean Corp Hgb Conc 31.8 g/dL (32-36); Mean Corpuscular Hgb 31.3 pg (27.0-32.0); Mean Corpuscular Volume 98.5 fL (81-99); Mean Platelet Vol. 11.9 fl (6.2-12.0); Platelet Count 233 K/mm3 (150-450); RBC Distribution Width CV 14.4 % (11.6-14.6); RBC Distribution Width SD 52.2 fl (35.1-43.9); Red Blood Count 4.12 M/mm3 (4.2-5.4); White Blood Count 4.8 K/mm3 (4.4-11.0)
[2023-08-12 11:04] LABS: ALB/GLOB Ratio 0.8 RATIO (0.9-2.4); AST(SGOT) 22 U/L (15-37); Alanine Aminotransfer ALT/SGPT 18 U/L (13-56); Albumin, Serum 3.3 g/dL (3.2-5.0); Alkaline Phosphatase 62 U/L (45-117); Anion Gap 7 (5-15); BUN 19 mg/dL (7-18); BUN/Creat Ratio 23.5 RATIO (10-20); Calcium,Total 9.3 mg/dL (8.5-10.1); Chloride 106 mmol/L (98-107); Cholesterol 333 mg/dL (200); Creatinine, Serum 0.81 mg/dL (0.55-1.02); EST Glomerular Filtration Rate 71 mL/min (>60); Est Glom Filt Rate - Afr Amer 86 mL/min (>60); Globulin 3.9 g/dL (2.2-4.2); Glucose 96 mg/dL (74-106); High Density Lipoprotein 61 mg/dL; Potassium 4.1 mmol/L (3.5-5.1); Protein, Total 7.2 g/dL (6.4-8.2); Sodium Level 139 mmol/L (136-145); Thyroid Stim Hormone (TSH) 2.34 uIU/mL (0.358-3.74); Triglycerides 131 mg/dL; Very Low Density Lipoprotein 26 mg/dL (5-40)
== END | disposition home or self-care (01) ==
LOC: MFPLAB 08:48
PROVIDERS: PCP Family Medicine; Visit Provider Family Medicine
DX: I10 Essential (primary) hypertension (principal); K21.9 Gastro-esophageal reflux disease without esophagitis; I25.10 Atherosclerotic heart disease of native coronary artery without angina pectoris
CPT/HCPCS: 36415; 80053; 80061; 82306; 84443; 85027

== ENCOUNTER 2023-11-08 00:34 | Emergency (ER) | payer MEDICARE, OTHER, SELFPAY ==
[2023-11-08 00:34] VITALS: BP 233/106; PULSE 75; RESP 18; TEMP 36; O2SAT 96; BMI 29.7
--- NOTE | 2023-11-08 01:04 | CT_ITS ---
EXAM: CT HEAD WITHOUT INTRAVENOUS CONTRAST CLINICAL INDICATION: MAYBERRY TECHNIQUE: Multiple axial images were obtained of the head without intravenous contrast. This CT exam was performed using one or more of the following dose reduction techniques: automated exposure control, adjustment of the mA and/or kV according to patient size, and/or use of iterative reconstruction technique. RADIATION DOSE: CTDIvol = 44.99 mGy, DLP = 796.11 mGy-cm COMPARISON: Noncontrast head CT from 08/21/2020 FINDINGS: BRAIN AND EXTRA-AXIAL SPACES: Diffuse cerebral volume loss. Periventricular small vessel ischemic changes. No intra- or extra-axial hemorrhage. No intracranial mass or mass effect. Posterior fossa structures are unremarkable. No hydrocephalus. Basal cisterns are patent. BONES/JOINTS: Unremarkable. No discrete lytic or blastic abnormalities. VASCULATURE: Vascular calcifications. SINUSES: Unremarkable as visualized. Clear. MASTOID AIR CELLS: Unremarkable. Clear. ORBITS: Visualized globes, extraocular muscles, optic nerves and retrobulbar fat appear unremarkable. CT/Brain/Head without Contrast IMPRESSION: 1. No acute intracranial abnormalities. 2. Age-related changes. Electronically Signed: Bernard Melendrez MD at 2:01 EDT ,
--- NOTE | 2023-11-08 01:04 | EKG12_ITS ---
Test Reason : HTN Blood Pressure : / mmHG Vent. 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
[2023-11-08] MEDS: hydrALAZINE 20 MG/ML Vial 10 MG IV (01:09)
[2023-11-08] MEDS: cloNIDine HCl 0.1 MG Tablet PO (01:09)
[2023-11-08 01:30] LABS: Absolute Lymphocyte Count 1.95 X10^3/uL (0.83-4.51); Absolute Neutrophil Count 2.4 X10^3/uL (2.0-7.7); Basophil# 0.05 X10^3/uL; Hematocrit 40.4 % (37-47); Hemoglobin 13.3 g/dL (12.0-15.0); Lymphocyte # 1.95 X10^3/ul (0.83-4.51); Lymphocyte % 38.2 % (19-41); Mean Corp Hgb Conc 32.9 g/dL (32-36); Mean Corpuscular Hgb 31.7 pg (27.0-32.0); Mean Corpuscular Volume 96.4 fL (81-99); Mean Platelet Vol. 11.4 fl (6.2-12.0); Monocyte% 9.8 % (0-10); NRBC Flagged by Analyzer 0 % (0-5); Neutrophil # 2.41 X10^3/uL (2.7-7.7); Neutrophil % 47.2 % (47-70); Platelet Count 208 K/mm3 (150-450); RBC Distribution Width SD 49.6 fl (35.1-43.9); Red Blood Count 4.19 M/mm3 (4.2-5.4); White Blood Count 5.1 K/mm3 (4.4-11.0)
[2023-11-08 01:37] LABS: Anion Gap 4 (5-15); BUN 18 mg/dL (7-18); Calcium,Total 9.2 mg/dL (8.5-10.1); Chloride 108 mmol/L (98-107); Creatinine, Serum 0.86 mg/dL (0.55-1.02); EST Glomerular Filtration Rate 67 mL/min (>60); Est Glom Filt Rate - Afr Amer 80 mL/min (>60); Estimated Creatinine Clearance 42.53 ml/min; Glucose 104 mg/dL (74-106); Potassium 3.9 mmol/L (3.5-5.1); Sodium Level 139 mmol/L (136-145); Troponin-I HS 12 pg/mL (3.0-54.0)
--- NOTE | 2023-11-08 02:09 | EDS_ITS ---
HPI History of Present Illness Chief Complaint: Hypertension Informant: patient and family Narrative Narrative: Patient is an 88-year-old female with past medical history of hypertension and aortic stenosis. She takes carvedilol secondary to this. She states that her blood pressure will fluctuate greatly secondary to her . She states that this evening she felt slightly lightheaded/off and checked her blood pressure and it was elevated and therefore she took 2 carvedilol. Despite doing this there is no improvement of her blood pressure and therefore she presents for evaluation. She denies any recent stimulant use or illicit drug use and reports she has been taking her medication as directed [facility] Medical History Obesity Deep vein thrombosis Essential (primary) hypertension Nonrheumatic aortic (valve) stenosis Hyperlipidemia Atherosclerotic heart disease of [place] coronary artery without angina pectoris Home Medications ?Medication ?Instructions ?Recorded ?Last Taken ?Type cholecalciferol (vitamin D3) 125 5,000 unit PO DAILY SUPPLEMENT 12/12/17 11/20/19 History mcg (5,000 unit) capsule coenzyme Q10 200 mg capsule 200 mg PO DAILY SUPPLEMENT 12/12/17 11/20/19 History nitroglycerin 0.4 mg sublingual 0.4 mg sublingual Q5M PRN ANGINA 06/19/20 Un known Rx tablet #25 tabs apixaban 2.5 mg tablet (Eliquis) 2.5 mg PO BID 07/09/21 Unknown History famotidine 10 mg tablet (Pepcid AC) 10 mg PO ONCE PRN 12/06/22 Unknown History desoximetasone 0.25 % topical cream 1 applic topical DAILY PRN Fill as 02/09/23 Unknown Rx courtesy until pt obtains new Primary #15 grams carvedilol 3.125 mg tablet 3.125 mg PO BID Dose decreased 02/23/23 Unknown Rx back to 3.125 bid #180 tabs multivitamin 1 tab PO DAILY 08/16/23 Unknown History amlodipine 2.5 mg tablet (Norvasc) 2.5 mg PO DAILY 30 days #30 tabs 11/08/23 Unknown Rx Allergy/AdvReac Type Severity Reaction Status Date / Time azithromycin Allergy Severe Other Verified 11/08/23 01:39 pravastatin AdvReac Severe mylagias Verified 11/08/23 01:39 Family History Other CVA (cerebral vascular accident) Surgical History Hx of cataract surgery History of left heart catheterization (07/26/13) History of coronary artery stent placement (06/19/01) Social History household members: none Smoking Status: Never smoker alcohol intake: current alcohol intake frequency: other substance use type: does not use ROS ROS ED Constitutional Constitutional ED: Denies chills or fever(s) Eyes Eyes: Denies blurry vision or change in vision ENT ENT ED: Denies sore throat Cardiovascular Cardiovascular: Denies chest pain, palpitations or racing heartbeat Respiratory/Chest Respiratory/Chest: Denies cough or dyspnea Gastrointestinal Gastrointestinal: Denies abdominal pain, diarrhea, nausea or vomiting Genitourinary Genitourinary ED: Denies dysuria Musculoskeletal Musculoskeletal: Denies myalgias or neck pain Integumentary Denies rash Neurologic Neurologic: Reports headache(s); Denies paresthesias or weakness Hematologic/Lymphatic Hematologic/Lymphatic: Reports easy bleeding and easy bruising EXAM Physical Exam Const Vital Signs: 11/08/23 00:34 11/08/23 00:34 11/08/23 00:37 Temperature 96.8 F L Temperature Source Temporal Pulse Rate 75 Respiratory Rate 18 Respiratory Effort Normal Non-Labored Respiratory Pattern Normal Blood Pressure 233/106 H 233/106 H Blood Pressure Mean 148 148 Pulse Ox 96 Oxygen Delivery Method Room Air 11/08/23 02:27 11/08/23 03:02 Temperature 97.1 F L 98.0 F Temperature Source Temporal Pulse Rate 55 L 59 L Respiratory Rate 15 18 Respiratory Effort Respiratory Pattern Blood Pressure 98/59 L 123/63 H Blood Pressure Mean 72 83 Pulse Ox 96 95 Oxygen Delivery Method Room Air Positive well nourished and well developed General Appearance ED: well developed; Negative for pallor HEENT HEENT Narrative: Normocephalic atraumatic Eyes PERRL and EOMs intact bilaterally General Eye ED: Negative for scleral icterus Neck supple and no JVD Resp normal respiratory effort and clear to auscultation bilaterally Cardio regular rate and regular rhythm Rate: other Other Details: Heart is regular rate and rhythm with grade 5 out of 6 systolic murmur consistent with aortic stenosis Radial and carotid pulses are equal and symmetric GI normal to inspection, nondistended, normoactive bowel sounds, non-tender, non-distended and no masses GI Narrative: No voluntary guarding rigidity or pulsatile mass Auscultation: normoactive bowel sounds Palpation: soft Extremity normal to inspection Extremity Narrative: No asymmetric edema no pitting edema negative Homans' sign bilaterally Neuro oriented x3, CN's II-XII intact bilaterally and no sensory deficits noted Neuro Narrative: Cranial nerves II through XII are grossly intact there are no focal neurologic deficits No pronator drift no dysmetria no truncal ataxia GCS of 15 NIH stroke scale score of 0 Sensorium / Orientation: alert Motor Exam: strength 5/5 throughout Psych mental status grossly normal Skin no rashes or lesions noted General Skin Exam: Negative for jaundice or pallor MDM MDM MDM Narrative Medical decision making narrative: Patient arrived to the ER extremely hypertensive at 233/106. She reported feeling slightly lightheaded but otherwise had a normal neurologic exam with no focal deficits. Based on this high blood pressure there is concern for a acute spontaneous hemorrhage and therefore a CT was obtained. There is also concern for endorgan damage such as acute kidney injury or acute coronary syndrome. An EKG was ordered and shows no ischemic changes and her troponin is normal at 12 going against ACS. Creatinine is also normal at 0.86 indicating she has no signs of acute kidney injury. She was given 10 mg of hydralazine as her heart rate was borderline bradycardic by IV route and 0.1 mg of oral clonidine with this patient had resolution of her hypertension. Therefore at this time with resolution of the hypertension and no signs of endorgan damage or acute neurologic event there is no need to keep her in the hospital and she is otherwise safe for discharge History & Record Review Discussion w/independent historian: Patient and Family Lab Data Attestation: I reviewed the patient's lab results. Labs: Laboratory Results - last 24 hr 11/08/23 01:05 WBC 5.1 RBC 4.19 L Hgb 13.3 Hct 40.4 MCV 96.4 MCH 31.7 MCHC 32.9 RDW Std Deviation 49.6 H RDW Coeff of Heladio 14.0 Plt Count 208 MPV 11.4 Immature Gran % (Auto) 1.800 H Neut % (Auto) 47.2 Lymph % (Auto) 38.2 [place] % (Auto) 9.8 Eos % (Auto) 2.0 Baso % (Auto) 1.0 Absolute Neuts (auto) 2.4 Absolute Lymphs (auto) 1.95 Nucleated RBC % 0 Sodium 139 Potassium 3.9 Chloride 108 H Carbon Dioxide 27.0 Anion Gap 4 L BUN 18 Creatinine 0.86 Estim Creat Clear Calc 42.53 Est GFR (MDRD) Af Amer 80 Est GFR (MDRD) Non-Af 67 BUN/Creatinine Ratio 21.0 H Glucose 104 Calcium 9.2 Troponin I High Sens 12 Radiography Diagnostic Testing: Clinical Impression(s) from Imaging Studies Brain CT 11/08/23 01:04 IMPRESSION: 1. No acute intracranial abnormalities. 2. Age-related changes. Electronically Signed: Bernard Melendrez MD at 2:01 EDT , Discharge Plan Triage Chief Complaint: Hypertension ED Provider: Ruiz Luo Dx/Rx/DC Orders Clinical Impression: Accelerated hypertension, Nonrheumatic aortic (valve) stenosis, Hyperlipidemia Instructions: Aortic Stenosis, ED Hypertension, Established Prescriptions: New amlodipine [Norvasc] 2.5 mg tablet 2.5 mg PO DAILY 30 Days Qty: 30 0RF No Action nitroglycerin 0.4 mg tablet, sublingual 0.4 mg SL Q5M PRN (Reason: ANGINA) Qty: 25 3RF Eliquis 2.5 mg tablet 2.5 mg PO BID famotidine [Pepcid AC] 10 mg tablet 10 mg PO ONCE PRN multivitamin Tablet 1 tab PO DAILY desoximetasone 0.25 % cream 1 applic topical DAILY PRN (Reason: Fill as courtesy until pt obtains new Primary DrNelli ) Qty: 15 1RF cholecalciferol (vitamin D3) 5,000 UNIT capsule 5,000 unit PO DAILY coenzyme Q10 200 MG capsule 200 mg PO DAILY carvedilol 3.125 mg tablet 3.125 mg PO BID Qty: 180 3RF Rx Instructions: must administer with a meal/food Primary Care Provider: Amadou Live Referrals: Amadou Live MD [Primary Care Provider] - Print Language: Tamazight Disposition Disposition: Home, Self Care Discharge Date/Time: 11/08/23 03:07
[2023-11-08] MEDS: 0.9% Normal Saline (1000mL) 1,000 ML 999 ML IV (02:25)
--- NOTE | 2023-11-08 02:26 | ED.RN ---
The pt is refusing to go home with a bp of 98/59. Dr Luo is aware and ordered 1L of NS. See MAR.
[2023-11-08 02:27] VITALS: BP 98/59; PULSE 55; RESP 15; TEMP 36.2; O2SAT 96
[2023-11-08 03:02] VITALS: BP 123/63; PULSE 59; RESP 18; TEMP 36.7; O2SAT 95
--- NOTE | 2023-11-08 03:07 | ED.RN ---
Pt daughter states She does not want to wait any longer for her IV to go in, she is ready to go home. I think her blood pressure is high enough that I won't have to come in and boss everyone around. aware.
== END 2023-11-08 03:07 | disposition home or self-care (01) ==
PROVIDERS: Emergency Provider Emergency Medicine; PCP Family Medicine; Visit Provider Emergency Medicine
DX: I10 Essential (primary) hypertension (principal); E78.5 Hyperlipidemia, unspecified; I25.10 Atherosclerotic heart disease of native coronary artery without angina pectoris; I35.0 Nonrheumatic aortic (valve) stenosis; Z79.899 Other long term (current) drug therapy; Z86.718 Personal history of other venous thrombosis and embolism; Z79.01 Long term (current) use of anticoagulants; Z95.5 Presence of coronary angioplasty implant and graft
CPT/HCPCS: 70450; 80048; 84484; 85025; 93005; 96361; 96374; 99283; J7030; A4216

== ENCOUNTER → 2023-11-29 | Outpatient (CLI) | payer MEDICARE, OTHER, SELFPAY ==
[2023-11-29 12:16] LABS: Mucous, Urine 0 SEEN /hpf (<or=2+); Red Blood Cells-Urine 0 SEEN /hpf (0-5); White Blood Cells 0 SEEN /hpf (0-5)
[2023-11-29 12:37] LABS: Absolute Lymphocyte Count 1.33 X10^3/uL (0.83-4.51); Absolute Neutrophil Count 2.8 X10^3/uL (2.0-7.7); Basophil# 0.03 X10^3/uL; Basophil% 0.7 % (0-1); Eosinophil# 0.06 X10^3/uL; Eosinophils% 1.3 % (0-5); Hematocrit 42.5 % (37-47); Hemoglobin 14.1 g/dL (12.0-15.0); Lymphocyte # 1.33 X10^3/ul (0.83-4.51); Lymphocyte % 29.2 % (19-41); Mean Corp Hgb Conc 33.2 g/dL (32-36); Mean Corpuscular Hgb 32.1 pg (27.0-32.0); Mean Corpuscular Volume 96.8 fL (81-99); Mean Platelet Vol. 11.3 fl (6.2-12.0); Monocyte# 0.34 X10^3/uL; Monocyte% 7.5 % (0-10); NRBC Flagged by Analyzer 0 % (0-5); Neutrophil # 2.78 X10^3/uL (2.7-7.7); Neutrophil % 60.9 % (47-70); Platelet Count 234 K/mm3 (150-450); RBC Distribution Width CV 13.9 % (11.6-14.6); Red Blood Count 4.39 M/mm3 (4.2-5.4); White Blood Count 4.6 K/mm3 (4.4-11.0)
[2023-11-29 13:22] LABS: Color, Urine Straw (Yellow); Glucose, Dipstick Normal (Normal); Ketone-Dipstick 5 mg/dl (Negative); Leukocyte Esterase-Dipstick Negative /ul (Negative); Nitrite-Dipstick Negative (Negative); Occult Blood-Urine Negative /ul (Negative); Protein-Dipstick Negative (Negative); Urine Bilirubin Dipstick Negative (Negative); Urine Clarity Clear (Clear); Urine Urobilinogen Normal (Normal)
[2023-11-29 13:30] LABS: Anion Gap 4 (5-15); BUN 13 mg/dL (7-18); BUN/Creat Ratio 16.2 RATIO (10-20); Chloride 106 mmol/L (98-107); EST Glomerular Filtration Rate 72 mL/min (>60); Est Glom Filt Rate - Afr Amer 87 mL/min (>60); Glucose 110 mg/dL (74-106); Potassium 4.3 mmol/L (3.5-5.1); Sodium Level 138 mmol/L (136-145)
[2023-11-29 13:32] LABS: Bacteria 1+ /hpf (None Seen); Squamous Epithelial Cells - UA 0-5 SEEN /hpf (5-10)
== END | disposition home or self-care (01) ==
LOC: LAB 12:12
PROVIDERS: PCP Family Medicine; Referring Provider Nurse Practitioner Gerontology; Visit Provider Nurse Practitioner Gerontology
DX: R82.90 Unspecified abnormal findings in urine (principal)
CPT/HCPCS: 36415; 80048; 81001; 85025; 87086; 87088

== ENCOUNTER → 2023-12-21 | Outpatient (CLI) | payer MEDICARE, OTHER, SELFPAY ==
--- NOTE | 2023-12-21 07:50 | ECHOD_ITS ---
Reason For Study: AORTIC STENOSIS Procedure This was a 2D Doppler, Color Flow transthoracic echocardiogram. The study was technically difficult. Exam performed in department. Left Ventricle Normal LV size. Moderate concentric left ventricular hypertrophy. Left ventricular systolic function is normal. The left ventricular ejection fraction is 70 %. Stage 1 diastolic dysfunction. No regional wall motion abnormalities noted. Right Ventricle Normal RV size. Normal systolic function. Atria Normal left atrium. Normal right atrium. Mitral Valve Mild (1+) eccentric mitral valve insufficiency. Tricuspid Valve Normal tricuspid valve. Mild tricuspid valve insufficiency. Pulmonary artery systolic pressure is 19 mmHg. Aortic Valve Trisinus/trileaflet aortic valve. Moderate focal aortic valve calcification. Peak aortic valve gradient 73 mmHg. Mean aortic valve gradient 49 mmHg. Severe aortic stenosis. Pulmonic Valve The pulmonic valve is not well visualized. Great Vessels Normal aortic root. Pericardium/Pleural No pericardial effusion. MMode/2D Measurements & Calculations LVIDd: 2.8 cm IVSd: 1.7 cm LVOT diam: 2.0 cm LVIDs: 1.6 cm LVPWd: 1.5 cm LVOT area: 3.1 cm2 RVDd: 3.9 cm FS: 43.4 % asc Aorta Diam: 3.3 cm LAV(MOD-bp): 63.1 ml LVAd ap4: 16.6 cm2 LAV(MOD-bp) Indexed: 37.0 ml/m2 LVLd ap4: 6.8 cm LAV(MOD-sp2): 58.5 ml EDV(MOD-sp4): 33.5 ml LAV(MOD-sp4): 61.9 ml EDV(sp4-el): 34.5 ml LVAs ap4: 7.6 cm2 LVLs ap4: 5.2 cm ESV(MOD-sp4): 9.4 ml ESV(sp4-el): 9.5 ml EF(MOD-sp4): 71.9 % EF(sp4-el): 72.5 % LVAd ap2: 18.1 cm2 SV(MOD-sp4): 24.1 ml SV(MOD-sp2): 23.6 ml LVLd ap2: 7.1 cm EDV(MOD-sp2): 36.7 ml EDV(sp2-el): 39.2 ml LVAs ap2: 9.5 cm2 LVLs ap2: 5.5 cm ESV(MOD-sp2): 13.1 ml ESV(sp2-el): 13.7 ml EF(MOD-sp2): 64.4 % SV(sp4-el): 25.0 ml Ao sinus diam: 3.[address] Junction: 2.2 cm LA dimension(2D): 3.8 cm LA A4 area: 19.5 cm2 RA A4 area: 13.2 cm2 TAPSE: 1.5 cm Time Measurements MV dec time: 0.45 sec Doppler Measurements & Calculations MV E max isauro: 72.1 cm/sec Lat Peak E' Isauro: 4.6 cm/sec Med Peak E' Isauro: 4.0 cm/sec MV A max isauro: 128.2 cm/sec E/E' lat: 15.6 E/E' med: 18.0 MV E/A: 0.56 MV V2 max: 137.7 cm/sec MV dec slope: 160.6 cm/sec2 Ao V2 max: 426.5 cm/sec MV max P.6 mmHg Ao max P.8 mmHg MV V2 mean: 74.9 cm/sec Ao V2 mean: 340.1 cm/sec MV mean P.6 mmHg Ao mean P.3 mmHg MV V2 VTI: 41.3 cm Ao V2 VTI: 120.3 cm MVA(VTI): 1.6 cm2 AV (velocity ratio): 0.18 GARRET(I,D): 0.56 cm2 GARRET(V,D): 0.61 cm2 LV V1 max: 85.1 cm/sec SV(LVOT): 67.5 ml PA V2 max: 102.5 cm/sec LV V1 max P.9 mmHg PA max PG (full): 2.5 mmHg LV V1 mean P.9 mmHg LV V1 mean: 66.8 cm/sec LV V1 VTI: 22.1 cm PI end-d isauro: 114.8 cm/sec TR max isauro: 203.8 cm/sec TR max P.6 mmHg ECHO/Echo Complete Interpretation Summary Normal LV size. Left ventricular systolic function is normal. Moderate concentric left ventricular hypertrophy. The left ventricular ejection fraction is 70 %. Stage 1 diastolic dysfunction. Moderate focal aortic valve calcification. Mean aortic valve gradient 49 mmHg. Severe aortic stenosis. Ordering Physician: Octavio Lopez Referring Physician: Octavio Lopez MD Performed By: Elvira Pro RDCS
== END | disposition home or self-care (01) ==
PROVIDERS: PCP Family Medicine; Referring Provider Internal Medicine Cardiovascular Disease; Visit Provider Internal Medicine Cardiovascular Disease
DX: J32.8 Other chronic sinusitis (principal); R03.0 Elevated blood-pressure reading, without diagnosis of hypertension; I35.0 Nonrheumatic aortic (valve) stenosis
CPT/HCPCS: 87070; 87205; 93306; 93788

== ENCOUNTER 2024-01-10 19:01 | Emergency (ER) | payer MEDICARE, OTHER, SELFPAY ==
[2024-01-10 19:02] VITALS: BP 183/112; PULSE 73; RESP 18; TEMP 36.6; O2SAT 98; BMI 27.9
[2024-01-10 19:06] VITALS: BP 158/87; PULSE 62; RESP 16; O2SAT 97
--- NOTE | 2024-01-10 19:06 | EKG12_ITS ---
Test Reason : Blood Pressure : */* mmHG Vent. Rate : 71 BPM Atrial Rate : 71 BPM P-R Int : 190 ms QRS Dur : 80 ms QT Int : 386 ms P-R-T Axes : 60 40 57 degrees QTcB Int : 419 ms Normal sinus rhythm Minimal voltage criteria for LVH, may be normal variant ( Sokolow-Rosenbaum ) Borderline ECG Confirmed by Pieter Cook ([id number]), newspaper managing editor CANDIE PEMBERTON ([id number]) on 01/11/2024 1:08:40 PM Referred By: Confirmed By: Pieter Cook
--- NOTE | 2024-01-10 19:06 | RAD_ITS ---
STUDY: X-RAY CHEST REASON FOR EXAM: Female, 88 years old. chest pain TECHNIQUE: AP portable COMPARISON: January 23, 2023 FINDINGS: The lungs are clear and expanded. There is no demonstrated pleural abnormality. Normal size heart. Normal mediastinum and fermín. Normal visualized pulmonary arteries. Tortuous mildly calcified aortic arch and descending thoracic aorta. Dorsal spine and shoulders demonstrate degenerative change. Normal visualized ribs, and clavicles. There is no demonstrated abnormality of the visualized soft tissue structures of the upper abdomen. RAD/Chest 1 View (Portable) IMPRESSION: ASHD. No acute cardiopulmonary pathology Electronically Signed: Tino Cagle MD at 20:18 EST ,
--- NOTE | 2024-01-10 19:33 | ED.VIS.CHEST ---
HPI History of Present Illness Chief Complaint: Chest Pain [facility] Medical History (Updated 01/10/24 @ 19:36 by Megha Isidro) GERD (gastroesophageal reflux disease) Obesity Deep vein thrombosis Essential (primary) hypertension Nonrheumatic aortic (valve) stenosis Hyperlipidemia Atherosclerotic heart disease of [place] coronary artery without angina pectoris Home Medications ?Medication ?Instructions ?Recorded ?Last Taken ?Type cholecalciferol (vitamin D3) 125 5,000 unit PO DAILY SUPPLEMENT 12/12/17 11/20/19 History mcg (5,000 unit) capsule coenzyme Q10 200 mg capsule 200 mg PO DAILY SUPPLEMENT 12/12/17 11/20/19 History nitroglycerin 0.4 mg sublingual 0.4 mg sublingual Q5M PRN ANGINA 06/19/20 Unknown Rx tablet #25 tabs apixaban 2.5 mg tablet (Eliquis) 2.5 mg PO BID 07/09/21 Unknown History famotidine 10 mg tablet (Pepcid AC) 10 mg PO ONCE PRN gerd 12/06/22 Unknown History desoximetasone 0.25 % topical cream 1 applic topical DAILY PRN Fill as 02/09/23 Unknown Rx courtesy until pt obtains new Primary DrNelli #15 grams carvedilol 6.25 mg tablet 6.25 mg PO BID #180 tabs 01/10/24 Unknown Rx lisinopril 10 mg tablet 20 mg (2 x 10 mg) PO BID #60 tabs 01/10/24 Unknown Rx Allergy/AdvReac Type Severity Reaction Status Date / Time azithromycin Allergy Severe Other Verified 01/10/24 19:06 pravastatin AdvReac Severe mylagias Verified 01/10/24 19:06 Family History (Reviewed 12/21/23 @ 09:22 by Erik Lucas CUSTOMER SOLUTIONS COORDINATOR, CUSTOMER SOLUTIONS COORDINATOR-C) Other CVA (cerebral vascular accident) Surgical History Hx of cataract surgery History of left heart catheterization (07/26/13) History of coronary artery stent placement (06/19/01) Social History (Reviewed 12/21/23 @ 09:22 by Erik Lucas CUSTOMER SOLUTIONS COORDINATOR, CUSTOMER SOLUTIONS COORDINATOR-C) household members: none Smoking Status: Never smoker alcohol intake: current alcohol intake frequency: other substance use type: does not use EXAM Physical Exam Const Vital Signs: 01/10/24 19:02 01/10/24 19:06 01/10/24 19:35 Temperature 98 F Temperature Source Oral Pulse Rate 73 62 Respiratory Rate 18 16 Respiratory Effort Normal Blood Pressure 183/112 H 158/87 H Blood Pressure Mean 135 110 Pulse Ox 98 97 Oxygen Delivery Method Room Air Room Air 01/10/24 19:53 01/10/24 20:06 01/10/24 20:06 Temperature Temperature Source Pulse Rate 61 Respiratory Rate 14 Respiratory Effort Short of Breath Blood Pressure 164/83 H Blood Pressure Mean 110 Pulse Ox 97 97 Oxygen Delivery Method Room Air Room Air 01/10/24 21:00 01/10/24 22:00 Temperature Temperature Source Pulse Rate 67 63 Respiratory Rate 16 16 Respiratory Effort Blood Pressure 181/85 H 171/75 H Blood Pressure Mean 117 107 Pulse Ox 97 97 Oxygen Delivery Method Room Air Room Air MDM MDM MDM Narrative Medical decision making narrative: HISTORY OF PRESENT ILLNESS: 88-year-old female presents with elevated blood pressure and chest pain. No she told her primary care physician she had a blood pressure 198 systolic. She took her home carvedilol and lisinopril at approximately 6 PM. Notes history of DVT but otherwise denies estrogen use, unilateral leg swelling, hemoptysis, recent surgery chemotherapy. Patient denies sudden onset of pain, no tearing sensation, no migratory symptoms, no new numbness, weakness or loss of sensation. Patient denies family history or personal history of Connective tissue disorders (Marfan's Syndrome, Akila Danlos etc) REVIEW OF SYSTEMS: Pertinent positives: Elevated blood pressure, chest pain Pertinent negatives: Shortness of breath, leg swelling, cough, fever, bleeding diathesis PHYSICAL EXAM: Nursing triage notes reviewed, Vital signs reviewed Constitutional: please see mdm HENT: MMM Eyes: Pupils equal round and reactive to light, Extraocular muscles intact Neck: No stridor, no JVD, full neck ROM Lungs: Clear to auscultation, No wheezing or rales. No increased work of breathing, no conversational dyspnea, no accessory muscle use, no nasal flaring. No respiratory distress noted Heart: Regular rate and rhythm, No murmurs, No rubs and No gallops, 2+ distal pulses (radial, femoral, posterior tibial) in all extremities Abdomen: Soft, there is no tenderness, rigidity, rebound or guarding, no obvious peritoneal signs, no palpable pulsatile abdominal masses, no auscultated abdominal bruit : No CVAT Extremities: No edema Neuro: No focal neurological deficits, cranial nerves II through XII intact, 5/5 strength in all extremities. Intact sensation to light touch in all extremities, 2+ reflexes bilateral patella tendons. Normal gait. No ataxia. Skin: No rash or lesions noted MEDICAL DECISION MAKING: Chief Complaint: Chest pain External records reviewed: Echocardiogram from December 2023 shows ejection fraction of 70%, stage I diastolic dysfunction Factors affecting care: DVT on Eliquis, CAD status post stent, hypertension, hyperlipidemia Social determinants of health: none History obtained from others: none Consults: none [facility] Narrative: Patient was initially hypertensive with a blood pressure 183/112, otherwise afebrile and nontoxic-appearing. Exam without focal cardiopulmonary normalities I considered the following differential diagnosis: ACS, arrhythmia, anemia, electrolyte disturbance, pneumothorax, PE, dissection The patient's history and physical exam were not consistent with PE or dissection ALL IMAGES (IF OBTAINED) HAVE BEEN PERSONALLY REVIEWED AND INTERPRETED BY MYSELF. EKG with normal sinus rhythm, normal axis, no intervals, no STEMI High-sensitivity troponin is negative, no evidence of myocardial ischemia CBC without leukocytosis, severe anemia, no thrombocytopenia. BMP without evidence of significant electrolyte abnormalities, no anion gap, no acute kidney injury. I have personally reviewed the patient's chest x-ray. Chest x-ray is unremarkable for pulmonary edema, pneumothorax, pneumonia or focal cardiopulmonary abnormality. Delta troponin also negative On reassessment patient's blood pressure improved to 171/75 after additional dose of p.o. clonidine she was chest pain-free. Workup is negative. Etiology unclear. Unlikely be life-threatening given negative labs images and reassuring exam and improving vital signs. She is appropriate discharge home The patient and/or family, caregivers express understanding. The patient and/or family, caregivers agrees with the plan. Shared decision making: I will have a discussion with the patient and or visitors regarding risk/benefits of further testing or admission. They will be made aware of of the risk/benefits inherent in this decision they will be given the opportunity to voice understanding. Total critical care time today provided was at least 0 minutes. This excludes separately billable procedures. Critical care time (if documented) is secondary to the patient having high probability of clinically significant/life threatening deterioration in the patient's condition which required my urgent intervention. Impression: 1. Chest pain 2. Elevated blood pressure Dispo: Discharge home This note was generated with [employer]tala dictation software. It may contain incorrect words, spelling, and punctuation that were not noted in review of the chart prior to signing. Lab Data Labs: Laboratory Results - last 24 hr 01/10/24 01/10/24 19:55 21:45 WBC 4.6 RBC 3.97 L Hgb 13.1 Hct 38.9 MCV 98.0 MCH 33.0 H MCHC 33.7 RDW Std Deviation 50.9 H RDW Coeff of Heladio 14.1 Plt Count 224 MPV 11.2 Immature Gran % (Auto) 0.000 Neut % (Auto) 42.7 L Lymph % (Auto) 46.1 H [place] % (Auto) 9.4 Eos % (Auto) 0.9 Baso % (Auto) 0.9 Absolute Neuts (auto) 2.0 Absolute Lymphs (auto) 2.10 Nucleated RBC % 0 Sodium 139 Potassium 3.9 Chloride 107 Carbon Dioxide 26.0 Anion Gap 7 BUN 12 Creatinine 0.90 Estim Creat Clear Calc 39.40 Est GFR (MDRD) Af Amer 76 Est GFR (MDRD) Non-Af 63 BUN/Creatinine Ratio 13.4 Glucose 94 Calcium 9.4 Troponin I High Sens 12 12 Radiography Diagnostic Testing: Clinical Impression(s) from Imaging Studies Chest X-Ray 01/10/24 19:06 IMPRESSION: ASHD. No acute cardiopulmonary pathology Electronically Signed: Tino Cagle MD at 20:18 EST Reading Location ID and State: [address] [place] [address] Tel , Service support , Discharge Plan Triage Chief Complaint: Chest Pain Other Complaint: Hypertension ED Provider: Hiram Bill Dx/Rx/DC Orders Prescriptions: No Action nitroglycerin 0.4 mg tablet, sublingual 0.4 mg SL Q5M PRN (Reason: ANGINA) Qty: 25 3RF Eliquis 2.5 mg tablet 2.5 mg PO BID famotidine [Pepcid AC] 10 mg tablet 10 mg PO ONCE PRN (Reason: gerd) desoximetasone 0.25 % cream 1 applic topical DAILY PRN (Reason: Fill as courtesy until pt obtains new Primary Dr. ) Qty: 15 1RF cholecalciferol (vitamin D3) 5,000 UNIT capsule 5,000 unit PO DAILY coenzyme Q10 200 MG capsule 200 mg PO DAILY carvedilol 6.25 mg tablet 6.25 mg PO BID Qty: 180 3RF Rx Instructions: must administer with a meal/food lisinopril 10 mg tablet 20 mg PO BID Qty: 60 11RF Primary Care Provider: Amadou Live Referrals: Amadou Live MD [Primary Care Provider] - Print Language: Occitan
[2024-01-10 20:02] LABS: Basophil# 0.04 X10^3/uL; Basophil% 0.9 % (0-1); Eosinophil# 0.04 X10^3/uL; Eosinophils% 0.9 % (0-5); Hematocrit 38.9 % (37-47); Hemoglobin 13.1 g/dL (12.0-15.0); Lymphocyte % 46.1 % (19-41); Mean Corp Hgb Conc 33.7 g/dL (32-36); Mean Platelet Vol. 11.2 fl (6.2-12.0); Monocyte# 0.43 X10^3/uL; Monocyte% 9.4 % (0-10); NRBC Flagged by Analyzer 0 % (0-5); Neutrophil # 1.95 X10^3/uL (2.7-7.7); Neutrophil % 42.7 % (47-70); Platelet Count 224 K/mm3 (150-450); RBC Distribution Width CV 14.1 % (11.6-14.6); RBC Distribution Width SD 50.9 fl (35.1-43.9); Red Blood Count 3.97 M/mm3 (4.2-5.4); White Blood Count 4.6 K/mm3 (4.4-11.0)
[2024-01-10 20:06] VITALS: BP 164/83; PULSE 61; RESP 14; O2SAT 97
[2024-01-10 20:51] LABS: Anion Gap 7 (5-15); BUN 12 mg/dL (7-18); BUN/Creat Ratio 13.4 RATIO (10-20); Calcium,Total 9.4 mg/dL (8.5-10.1); Chloride 107 mmol/L (98-107); EST Glomerular Filtration Rate 63 mL/min (>60); Est Glom Filt Rate - Afr Amer 76 mL/min (>60); Glucose 94 mg/dL (74-106); Potassium 3.9 mmol/L (3.5-5.1); Sodium Level 139 mmol/L (136-145); Troponin-I HS (w/2H Reflex) 12 pg/mL (3.0-54.0)
[2024-01-10 21:00] VITALS: BP 181/85; PULSE 67; RESP 16; O2SAT 97
[2024-01-10 21:59] LABS: Reflex Troponin-HS? (from REC) Y
[2024-01-10 22:00] VITALS: BP 171/75; PULSE 63; RESP 16; O2SAT 97
[2024-01-10] MEDS: cloNIDine HCl 0.1 MG Tablet PO (22:25)
[2024-01-10 22:35] LABS: Troponin-I HS 12 pg/mL (3.0-54.0)
[2024-01-10 22:57] VITALS: BP 153/76; PULSE 70; RESP 18; TEMP 36.9; O2SAT 98
== END 2024-01-10 22:58 | disposition home or self-care (01) ==
PROVIDERS: Emergency Provider Emergency Medicine; PCP Family Medicine; Visit Provider Emergency Medicine
DX: R07.9 Chest pain, unspecified (principal); I25.10 Atherosclerotic heart disease of native coronary artery without angina pectoris; E78.5 Hyperlipidemia, unspecified; Z86.718 Personal history of other venous thrombosis and embolism; Z79.01 Long term (current) use of anticoagulants; K21.9 Gastro-esophageal reflux disease without esophagitis; Z79.899 Other long term (current) drug therapy; Z95.5 Presence of coronary angioplasty implant and graft
CPT/HCPCS: 71045; 80048; 84484; 85025; 93005; 99285; A4216

== ENCOUNTER 2024-02-04 16:22 | Emergency (ER) | payer MEDICARE, OTHER, SELFPAY ==
[2024-02-04 16:24] VITALS: BP 196/89; PULSE 74; RESP 18; TEMP 36.4; O2SAT 97; BMI 28.1
--- NOTE | 2024-02-04 16:32 | ED.RN ---
PT IS HAVING REDNESS AND DISCOMFORT IN HER LOWER RIGHT EXTREMITY. PT IS HAVING A VALVE PROCEDURE DONE IN [place] THIS TUESDAY AND IS CONCERNED ABOUT INFECTION.
--- NOTE | 2024-02-04 16:52 | EX.ED.DYSGE1 ---
HPI History of Present Illness Chief Complaint: Cellulitis Informant: patient and family Narrative Narrative: Presents here with daughter for evaluation for concern of cellulitis right lower extremity. She reports intermittent redness to her right lower leg for the last 3 to 4 months goes away with elevation. Yesterday noted symptoms again. She is concerned due to having an upcoming vascular cardiology appointment in [place] in 5 days. History of aortic stenosis. She denies any leg swelling with this. 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 Denies fever or chills. Currently her leg is normal. Prior similar symptoms: Yes PFSH PFSH Medical History GERD (gastroesophageal reflux disease) Obesity Deep vein thrombosis Essential (primary) hypertension Nonrheumatic aortic (valve) stenosis Hyperlipidemia Atherosclerotic heart disease of [place] coronary artery without angina pectoris Home Medications ?Medication ?Instructions ?Recorded ?Last Taken ?Type cholecalciferol (vitamin D3) 125 5,000 unit PO DAILY SUPPLEMENT 12/12/17 11/20/19 History mcg (5,000 unit) capsule coenzyme Q10 200 mg capsule 200 mg PO DAILY SUPPLEMENT 12/12/17 11/20/19 History nitroglycerin 0.4 mg sublingual 0.4 mg sublingual Q5M PRN ANGINA 06/19/20 Unknown Rx tablet #25 tabs apixaban 2.5 mg tablet (Eliquis) 2.5 mg PO BID 07/09/21 Unknown History famotidine 10 mg tablet (Pepcid AC) 10 mg PO ONCE PRN gerd 12/06/22 Unknown History desoximetasone 0.25 % topical cream 1 applic topical DAILY PRN Fill as 02/09/23 Unknown Rx courtesy until pt obtains new Primary #15 grams carvedilol 6.25 mg tablet 6.25 mg PO BID #180 tabs 01/10/24 Unknown Rx amlodipine 2.5 mg tablet 2.5 mg PO QDAY 01/17/24 Unknown History clonidine HCl 0.1 mg tablet 0.1 mg PO QHS PRN hypertensive 01/23/24 Unknown Rx emergency #7 tabs Allergy/AdvReac Type Severity Reaction Status Date / Time azithromycin Allergy Severe Other Verified 02/04/24 16:34 pravastatin AdvReac Severe mylagias Verified 02/04/24 16:34 Family History Other CVA (cerebral vascular accident) Surgical History Hx of cataract surgery History of left heart catheterization (07/26/13) History of coronary artery stent placement (06/19/01) Social History household members: none Smoking Status: Never smoker alcohol intake: current alcohol intake frequency: other substance use type: does not use ROS ROS ED Constitutional Constitutional ED: Denies chills, fever(s) or sweats Eyes Eyes: Denies change in vision ENT ENT ED: Denies dysphagia or sore throat Cardiovascular Cardiovascular: Denies chest pain, leg edema, palpitations or racing heartbeat Respiratory/Chest Respiratory/Chest: Denies cough, dyspnea or dyspnea on exertion Gastrointestinal Gastrointestinal: Denies abdominal pain, diarrhea, nausea or vomiting Genitourinary Genitourinary ED: Denies dysuria, hematuria or urinary frequency Musculoskeletal Musculoskeletal: Denies back pain, extremity pain or neck pain Integumentary Denies rash or wounds Neurologic Neurologic: Denies headache(s), paresthesias or weakness EXAM Physical Exam Const Vital Signs: 02/04/24 16:24 Temperature 97.6 F L Temperature Source Temporal Pulse Rate 74 Respiratory Rate 18 Blood Pressure 196/89 H Blood Pressure Mean 124 Pulse Ox 97 Oxygen Delivery Method Room Air Positive well nourished and well developed General Appearance ED: well developed and NAD HEENT Reports moist mucous membranes normocephalic and atraumatic Eyes EOMs intact bilaterally and conjunctivae normal General Eye ED: Yes normal appearance of both eyes Neck no lymphadenopathy and supple General: Negative for tenderness Chest Wall Chest: Negative for tenderness Resp normal respiratory effort and normal air movement Effort and Inspection: symmetric chest movement; Negative for respiratory distress Cardio regular rate and regular rhythm Rate: other Other Details: 2+ systolic murmur right parasternal. Peripheral Pulses: pulses 2+ throughout GI normal to inspection, nondistended, normoactive bowel sounds and non-tender Palpation: Negative for guarding or rebound tenderness present Back/Spine no CVA tenderness and no thoracic nor lumbar tenderness Extremity normal to inspection General Extremety ED: Negative for edema or tenderness General Extremity: Negative for edema Neuro oriented x3 and no sensory deficits noted Sensorium / Orientation: awake and alert Skin no rashes or lesions noted and no wounds Skin Narrative: No swelling no erythema there were scattered varicose veins noted. Soft compartments of the calf. Skin intact. Neuro vas intact distally. MDM MDM MDM Narrative Medical decision making narrative: Interventions / MDM: Differential diagnosis: Vascular insufficiency, varicose veins, venous stasis Diagnosis considered but do not suspect: No clinical cellulitis, no clinical hypertensive emergency symptoms. My EKG interpretation: N/A Imaging independently reviewed and interpreted by myself: N/A External documents reviewed: N/A Test considered but not ordered:N/A ED course: Patient nontoxic. Asymptomatic with elevated blood pressure. Here concerns for cellulitis however with her history concerns more for vascular insufficiency with venous stasis. This improves with elevation being off her feet. No active symptoms currently. Reassurance discussed use stockings if concerns. She will keep her cardiology appointment in 5 days. Blood pressure be rechecked by PCP. All questions were answered. Re-evaluation: stable Disposition discussed with patient/family/significant other: Patient and family Case discussed with consulting clinician: N/A This note was generated with [employer] dictation software. It may contain incorrect words, spelling, and punctuation that were not noted in checking the note before signing. Discharge Plan Triage Chief Complaint: Cellulitis ED Provider: Steve Farnsworth Dx/Rx/DC Orders Clinical Impression: Venous stasis, Nonrheumatic aortic (valve) stenosis, Well adult health check, Essential (primary) hypertension Instructions: Understanding Leg Vein Problems Prescriptions: No Action nitroglycerin 0.4 mg tablet, sublingual 0.4 mg SL Q5M PRN (Reason: ANGINA) Qty: 25 3RF Eliquis 2.5 mg tablet 2.5 mg PO BID famotidine [Pepcid AC] 10 mg tablet 10 mg PO ONCE PRN (Reason: gerd) desoximetasone 0.25 % cream 1 applic topical DAILY PRN (Reason: Fill as courtesy until pt obtains new Primary DrNelli ) Qty: 15 1RF clonidine HCl 0.1 mg tablet 0.1 mg PO QHS PRN (Reason: hypertensive emergency) Qty: 7 0RF Rx Instructions: Take if BP systolic > 190 mmHG cholecalciferol (vitamin D3) 5,000 UNIT capsule 5,000 unit PO DAILY coenzyme Q10 200 MG capsule 200 mg PO DAILY carvedilol 6.25 mg tablet 6.25 mg PO BID Qty: 180 3RF Rx Instructions: must administer with a meal/food amlodipine 2.5 mg tablet 2.5 mg PO QDAY Primary Care Provider: Amadou Live Referrals: Amadou Live MD [Primary Care Provider] - 1-2 Weeks Activity Restrictions/Additional Instructions: Your history and description concerns for more venous insufficiency with venous stasis. Symptoms are resolved with rest and elevation. You may wear compression stockings to help with this. There is no clinical cellulitis or infection concerns. Keep your follow-up with your doctors. Print Language: Honduran Disposition Disposition: Home, Self Care Discharge Date/Time: 02/04/24 17:02
== END 2024-02-04 17:02 | disposition home or self-care (01) ==
LOC: ED 16:56
PROVIDERS: Emergency Provider Emergency Medicine; PCP Family Medicine; Visit Provider Emergency Medicine
DX: I87.8 Other specified disorders of veins (principal); I35.0 Nonrheumatic aortic (valve) stenosis; Z86.718 Personal history of other venous thrombosis and embolism; I10 Essential (primary) hypertension; I25.10 Atherosclerotic heart disease of native coronary artery without angina pectoris; E78.5 Hyperlipidemia, unspecified; Z79.01 Long term (current) use of anticoagulants; Z79.899 Other long term (current) drug therapy; K21.9 Gastro-esophageal reflux disease without esophagitis; Z95.5 Presence of coronary angioplasty implant and graft
CPT/HCPCS: 99282

== ENCOUNTER → 2024-02-24 | Outpatient (CLI) | payer MEDICARE, OTHER, SELFPAY | END | disposition home or self-care (01) | LOC: LABSPEC 11:10 | PROVIDERS: PCP Family Medicine; Referring Provider Family Medicine; Visit Provider Family Medicine | DX: R13.10 Dysphagia, unspecified (principal) | CPT/HCPCS: 87077; 87086; 87088; 87186 ==

== ENCOUNTER → 2024-03-12 | Outpatient (CLI) | payer MEDICARE, OTHER, SELFPAY ==
--- NOTE | 2024-03-12 12:54 | ECHOD_ITS ---
Reason For Study: POST OP TAVR Procedure This was a 2D Doppler, Color Flow transthoracic echocardiogram. Myocardial strain analysis was performed in this exam to aid in the assessment of cardiac function. Exam performed in department. Left Ventricle Normal LV size. Moderate concentric left ventricular hypertrophy. Left ventricular systolic function is normal. The left ventricular ejection fraction is 55 %. No regional wall motion abnormalities noted. Right Ventricle Normal RV size. Normal systolic function. Atria The left atrium is moderately enlarged. The right atrium is moderately enlarged. Mitral Valve There is moderate mitral annular calcification. Mild (1+) eccentric mitral valve insufficiency. Tricuspid Valve Normal tricuspid valve. Mild (1+) tricuspid valve insufficiency. Pulmonary artery systolic pressure is 30 mmHg. Aortic Valve Peak aortic valve gradient 10 mmHg. Mean aortic valve gradient 6 mmHg. Bioprosthetic aortic valve. Pulmonic Valve Normal pulmonic valve. Great Vessels Calcified aortic root. The pulmonary artery is normal size. Inferior vena cava collapse with respiration. Pericardium/Pleural No pericardial effusion. MMode/2D Measurements & Calculations LVIDd: 4.0 cm IVSd: 1.4 cm LVOT diam: 2.0 cm LVIDs: 2.1 cm LVPWd: 1.5 cm LVOT area: 3.1 cm2 RVDd: 3.5 cm FS: 46.9 % asc Aorta Diam: 2.8 cm LAV(MOD-bp): 85.2 ml LVAd ap4: 22.1 cm2 LAV(MOD-bp) Indexed: 51.6 ml/m2 LVLd ap4: 7.1 cm LAV(MOD-sp2): 94.4 ml EDV(MOD-sp4): 56.7 ml LAV(MOD-sp4): 73.8 ml EDV(sp4-el): 58.2 ml LVAs ap4: 10.8 cm2 LVLs ap4: 5.8 cm ESV(MOD-sp4): 17.5 ml ESV(sp4-el): 17.1 ml EF(MOD-sp4): 69.2 % EF(sp4-el): 70.7 % LVAd ap2: 21.6 cm2 SV(MOD-sp4): 39.2 ml SV(MOD-sp2): 32.7 ml LVLd ap2: 7.4 cm SI(MOD-sp4): 23.8 ml/m2 SI(MOD-sp2): 19.8 ml/m2 EDV(MOD-sp2): 51.7 ml EDV(sp2-el): 54.1 ml LVAs ap2: 11.8 cm2 LVLs ap2: 6.2 cm ESV(MOD-sp2): 19.0 ml ESV(sp2-el): 19.2 ml EF(MOD-sp2): 63.2 % SV(sp4-el): 41.1 ml Ao sinus diam: 2.8 cm LA A4 area: 23.8 cm2 LA dimension(2D): 4.4 cm RA A4 area: 13.3 cm2 TAPSE: 1.7 cm Time Measurements MV dec time: 0.32 sec Doppler Measurements & Calculations MV E max isauro: 92.9 cm/sec Lat Peak E' Isauro: 5.0 cm/sec Med Peak E' Isauro: 5.8 cm/sec MV A max isauro: 125.7 cm/sec E/E' lat: 18.6 E/E' med: 16.1 MV E/A: 0.74 MV V2 max: 140.8 cm/sec Ao V2 max: 162.2 cm/sec MV max P.9 mmHg MV dec slope: 287.1 cm/sec2 Ao max P.6 mmHg MV V2 mean: 92.7 cm/sec Ao V2 mean: 111.7 cm/sec MV mean P.7 mmHg Ao mean P.5 mmHg MV V2 VTI: 40.2 cm Ao V2 VTI: 38.1 cm AV (velocity ratio): 0.69 MVA(VTI): 2.0 cm2 GARRET(I,D): 2.2 cm2 GARRET(V,D): 1.9 cm2 LV V1 max: 100.3 cm/sec SV(LVOT): 82.2 ml PA V2 max: 83.6 cm/sec LV V1 max P.0 mmHg LV V1 mean P.3 mmHg LV V1 mean: 72.0 cm/sec LV V1 VTI: 26.1 cm PI end-d isauro: 129.1 cm/sec TR max isauro: 262.7 cm/sec TR max P.6 mmHg ECHO/Echo Complete Interpretation Summary Normal LV size. Moderate concentric left ventricular hypertrophy. Left ventricular systolic function is normal. The left ventricular ejection fraction is 55 %. Mean aortic valve gradient 6 mmHg. Bioprosthetic aortic valve. Ordering Physician: JOEL LANG Referring Physician: JOEL LANG Performed By: Elvira Pro RDCS
== END | disposition home or self-care (01) ==
PROVIDERS: PCP Family Medicine
DX: Z95.2 Presence of prosthetic heart valve (principal)
CPT/HCPCS: 93306

== ENCOUNTER → 2024-06-05 | Outpatient (CLI) | payer MEDICARE, OTHER, SELFPAY ==
[2024-06-05 12:35] LABS: Absolute Lymphocyte Count 1.48 X10^3/uL (0.83-4.51); Absolute Neutrophil Count 3.1 X10^3/uL (2.0-7.7); Basophil# 0.04 X10^3/uL; Basophil% 0.8 % (0-1); Eosinophils% 1.9 % (0-5); Hemoglobin 10.7 g/dL (12.0-15.0); Lymphocyte # 1.48 X10^3/ul (0.83-4.51); Lymphocyte % 27.8 % (19-41); Mean Corp Hgb Conc 32.4 g/dL (32-36); Mean Corpuscular Hgb 31.8 pg (27.0-32.0); Mean Corpuscular Volume 98.2 fL (81-99); Monocyte# 0.54 X10^3/uL; Monocyte% 10.2 % (0-10); NRBC Flagged by Analyzer 0 % (0-5); Neutrophil # 3.14 X10^3/uL (2.7-7.7); Neutrophil % 58.9 % (47-70); Platelet Count 197 K/mm3 (150-450); RBC Distribution Width CV 14.5 % (11.6-14.6); RBC Distribution Width SD 51.4 fl (35.1-43.9); Red Blood Count 3.36 M/mm3 (4.2-5.4); White Blood Count 5.3 K/mm3 (4.4-11.0)
== END | disposition home or self-care (01) ==
LOC: LAB 12:21
PROVIDERS: PCP Family Medicine; Referring Provider Physician Assistant Medical; Visit Provider Physician Assistant Medical
DX: I35.0 Nonrheumatic aortic (valve) stenosis (principal)
CPT/HCPCS: 36415; 85025

== ENCOUNTER → 2024-07-17 | Outpatient (CLI) | payer MEDICARE, OTHER, SELFPAY ==
--- NOTE | 2024-07-17 09:05 | ECHOD_ITS ---
Reason For Study Reason For Study: TAVR, Murmur Procedure This was a 2D Doppler, Color Flow transthoracic echocardiogram. Exam performed in department. Left Ventricle Normal LV size. Moderate concentric left ventricular hypertrophy. Sigmoid septum. The left ventricular ejection fraction is 60 %. No regional wall motion abnormalities noted. Right Ventricle Normal RV size. Normal systolic function. Atria The left atrium is severely enlarged. Normal right atrium. Mitral Valve There is moderate mitral annular calcification. Tricuspid Valve Normal tricuspid valve. Mild to moderate (1-2+) tricuspid valve insufficiency. Pulmonary artery systolic pressure is 40 mmHg. Aortic Valve Peak aortic valve gradient 12 mmHg. Mean aortic valve gradient 6 mmHg. Bioprosthetic aortic valve. Pulmonic Valve Normal pulmonic valve. Mild (1+) pulmonic valve insufficiency. Great Vessels Normal aortic root. The pulmonary artery is normal size. Inferior vena cava collapse with respiration. Pericardium/Pleural No pericardial effusion. MMode/2D Measurements & Calculations LVIDd: 3.2 cm IVSd: 1.6 cm LVOT diam: 1.9 cm LVIDs: 2.5 cm LVPWd: 1.4 cm LVOT area: 2.8 cm2 RVDd: 3.3 cm FS: 22.9 % Ao root diam: 3.5 cm LAV(MOD-bp): 95.5 ml LVAd ap4: 24.9 cm2 LAV(MOD-bp) Indexed: 56.5 ml/m2 LVLd ap4: 7.6 cm LAV(MOD-sp2): 72.4 ml EDV(MOD-sp4): 67.9 ml LAV(MOD-sp4): 127.1 ml EDV(sp4-el): 69.5 ml LVAs ap4: 14.4 cm2 LVLs ap4: 6.9 cm ESV(MOD-sp4): 26.6 ml ESV(sp4-el): 25.5 ml EF(MOD-sp4): 60.8 % EF(sp4-el): 63.3 % LVAd ap2: 22.7 cm2 SV(MOD-sp4): 41.3 ml SV(MOD-sp2): 36.8 ml LVLd ap2: 7.3 cm SI(MOD-sp4): 24.4 ml/m2 SI(MOD-sp2): 21.7 ml/m2 EDV(MOD-sp2): 58.0 ml EDV(sp2-el): 59.7 ml LVAs ap2: 12.6 cm2 LVLs ap2: 6.3 cm ESV(MOD-sp2): 21.2 ml ESV(sp2-el): 21.4 ml EF(MOD-sp2): 63.4 % SV(sp4-el): 44.0 ml LA dimension(2D): 4.5 cm LA A4 area: 33.8 cm2 RA A4 area: 16.9 cm2 TAPSE: 1.9 cm Time Measurements MV dec time: 0.20 sec Doppler Measurements & Calculations MV E max isauro: 110.4 cm/sec Lat Peak E' Isauro: 5.6 cm/sec Med Peak E' Isauro: 5.4 cm/sec MV A max isauro: 111.2 cm/sec E/E' lat: 19.6 E/E' med: 20.4 MV E/A: 0.99 MV V2 max: 123.6 cm/sec MV P1/2t max isauro: 122.3 cm/sec Ao V2 max: 172.7 cm/sec MV max P.1 mmHg MV P1/2t: 69.2 msec Ao max P.0 mmHg MV V2 mean: 77.4 cm/sec Ao V2 mean: 111.5 cm/sec MV mean P.7 mmHg MV dec slope: 517.6 cm/sec2 Ao mean P.7 mmHg MV V2 VTI: 39.5 cm MVA(P1/2t): 3.2 cm2 Ao V2 VTI: 43.3 cm AV (velocity ratio): 0.82 MVA(VTI): 2.5 cm2 GARRET(I,D): 2.3 cm2 GARRET(V,D): 2.3 cm2 AI max isauro: 439.3 cm/sec LV V1 max: 143.8 cm/sec SV(LVOT): 98.0 ml AI max P.2 mmHg LV V1 max P.3 mmHg AI dec slope: 227.4 cm/sec2 LV V1 mean P.6 mmHg AI P1/2t: 565.7 msec LV V1 mean: 100.6 cm/sec LV V1 VTI: 35.5 cm PA V2 max: 76.0 cm/sec PI end-d isauro: 125.4 cm/sec TR max isauro: 303.1 cm/sec TR max P.7 mmHg ECHO/Echo Complete Interpretation Summary Normal LV size. Moderate concentric left ventricular hypertrophy. The left ventricular ejection fraction is 60 %. Bioprosthetic aortic valve. Mean aortic valve gradient 6 mmHg. The left atrium is severely enlarged. Pulmonary artery systolic pressure is 40 mmHg. Ordering Physician: Anali Daniel Referring Physician: Amadou Live Performed By: Linsey Macedo RDCS
== END | disposition home or self-care (01) ==
LOC: CVS 09:04
PROVIDERS: PCP Family Medicine; Referring Provider Physician Assistant Medical; Visit Provider Physician Assistant Medical
DX: Z95.2 Presence of prosthetic heart valve (principal)
CPT/HCPCS: 93306

== ENCOUNTER 2024-08-23 00:31 | Emergency (ER) | payer MEDICARE, OTHER, SELFPAY ==
[2024-08-23 00:32] VITALS: BP 159/121; PULSE 74; RESP 16; TEMP 36.5; O2SAT 98; BMI 28.3
--- NOTE | 2024-08-23 00:59 | EKG12_ITS ---
Test Reason : CP Blood Pressure : */* mmHG Vent. Rate : 69 BPM Atrial Rate : 69 BPM P-R Int : 188 ms QRS Dur : 88 ms QT Int : 404 ms P-R-T Axes : 49 35 51 degrees QTcB Int : 432 ms Normal sinus rhythm Normal ECG Confirmed by Pieter Cook [id number]), technical editor MOSES PALOMO [id number]) on 08/28/2024 11:30:23 AM Referred By: JEANNE Confirmed By: Pieter Cook
[2024-08-23 01:18] LABS: Absolute Lymphocyte Count 1.16 X10^3/uL (0.83-4.51); Absolute Neutrophil Count 2.4 X10^3/uL (2.0-7.7); Basophil# 0.03 X10^3/uL; Basophil% 0.7 % (0-1); Eosinophil# 0.07 X10^3/uL; Eosinophils% 1.7 % (0-5); Hematocrit 34.7 % (37-47); Hemoglobin 11.6 g/dL (12.0-15.0); Lymphocyte # 1.16 X10^3/ul (0.83-4.51); Lymphocyte % 27.8 % (19-41); Mean Corp Hgb Conc 33.4 g/dL (32-36); Mean Corpuscular Hgb 32.7 pg (27.0-32.0); Mean Corpuscular Volume 97.7 fL (81-99); Mean Platelet Vol. 11.2 fl (6.2-12.0); Monocyte# 0.45 X10^3/uL; Monocyte% 10.8 % (0-10); NRBC Flagged by Analyzer 0 % (0-5); Neutrophil # 2.44 X10^3/uL (2.7-7.7); Neutrophil % 58.5 % (47-70); Platelet Count 203 K/mm3 (150-450); RBC Distribution Width CV 14.4 % (11.6-14.6); RBC Distribution Width SD 52.3 fl (35.1-43.9); Red Blood Count 3.55 M/mm3 (4.2-5.4); White Blood Count 4.2 K/mm3 (4.4-11.0)
[2024-08-23] MEDS: cloNIDine HCl 0.1 MG Tablet PO (01:32)
[2024-08-23] MEDS: hydrALAZINE 20 MG/ML Vial 10 MG IV (01:32)
[2024-08-23 01:53] LABS: Anion Gap 11 (5-15); BUN 20 mg/dL (4-19); BUN/Creat Ratio 20.7 RATIO (10-20); Calcium,Total 9.5 mg/dL (7.6-11.0); Carbon Dioxide 23.9 mmol/L (21.0-32.0); Chloride 102 mmol/L (98-108); Creatinine, Serum 0.94 mg/dL (0.70-1.20); EST Glomerular Filtration Rate 58 (>60); Estimated Creatinine Clearance 37.21 ml/min (50-250); Glucose 108 mg/dL (70-99); Potassium 4.3 mmol/L (3.3-5.1); Sodium Level 137 mmol/L (133-145); Troponin T High Sensitivity 12 ng/L (<=14)
--- OUTSIDE RECORDS SUMMARY | 2024-08-23 01:54 | XMS RPT_ITS | CCD ---
Author Organization [facility] Care Team Providers Care Fine Arts Model Name Role Phone Indiana Adamsamol Mitchell Unavailable Fanta RODRIGUEZ, Shirley Jones Unavailable Unavailable Indiana Adamsamol Mitchell Unavailable MICHAEL Auguste, Marsha Farris Unavailable Unavailnick Auguste RN, Marsha Farris Unavailable UnavailDr. Octavio Jensen Attending Provider Care Physician, No Primary Primary Care Provider Unavailable Care Physician, No Primary Primary Care Provider Unavailable Care Physician, No Primary Referring Provider Un available Kendrick CONRAD, GENA Mathew Attending Provider Dr. Octavoi Lopez Attending Provider Unavailable Primary Care Provider UnavailWHIT Ramos Attending Unavailable AMADOU LIU MD Primary Care Physician MARIANNE PINEDA DO Attending Unavailable AMADOU LIU MD Primary Care Unavailable Amadou Liu MD Primary Care Provider Dr. Octavio Lopez MD Attending Provider Amadou Liu MD Referring Provider Anali Ware Attending Provider Amadou Liu MD Attending Provider VEGA LANG Attending Provider VEGA LANG Referring Provider Anali Ware Referring Provider Amadou Liu MD Primary Care Provider Amadou Liu MD Referring Provider Anali Ware Attending Provider Dr. Octavio Lopez MD Attending Provider [phone] Calos, Chalon Primary Care Unavailable Jessica, Octavio Attending Unavailable Calos, Chalon Primary Care Unavailable Jessica, [place] Attending Unavailable Hiram Bill Attending Unavailable Calos, Chalon Primary Care Unavailable Calos, Chalon Primary Care Unavailable Steve Farnsworth Attending Unavailable Care Physician, No Primary Referring Unava ilable Calos, Chalon Primary Care Unavailable Jessica, Octavio Attending Unavailable Kendrick BULKER, Priyanka Consulting Unavailable Calos, Chalon Primary Care Unavailable Jessica, [place] Referring Unavailable Jessica, [place] Attending Unavailable Vasquez Blake Consulting Unavailable Calos, Chalon Primary Care Unavailable Ruiz Luo Attending Unavailable Calos, Chalon Primary Care Unavailable María MENDEZ, Anali Farris Attending Unavail able Anali Ware Referring Unavail able Calos, Chalon Attending Unavailable Calos, Chalon Primary Care Unavailable Calos, Chalon Referring Unavailable Calos, Chalon Primary Care Unavailable Calos, Chalon Attending Unavailable Roof BULKER, Erik Carlos Attending Unavailable Calos, Chalon Primary Care Unavailable Calos, Chalon Referring Unavailable Roof BULKERErik Attending Unavailable Calos, Chalon Primary Care Unavailable Calos, Chalon Referring Unavailable Calos, Chalon Primary Care Unavailable María MENDEZ, Anali Farris Attending Unavail able Anali Ware Referring Unavail able DELANY ISABEL Referring Unavailable DELANY, ISABEL Attending Unavailable Calos, Chalon Primary Care Unavailable Kendrick BULKER, Priyanka Attending Unavailable Calos, Chalon Primary Care Unavailable Kendrick BULKER, Priyanka Referring Unavailable Calos, Chalon Primary Care Unavailable María MENDEZ, Anali Farris Attending Unavail able Calos, Chalon Referring Unavailable Calos, Chalon Referring Unavailable Calos, Chalon Primary Care Unavailable Anali Ware Attending Unavail able Calos, Chalon Referring Unavailable Calos, Chalon Primary Care Unavailable María MENDEZ, Anali Farris Attending Unavail able Kendrick BULKER, Priyanka Attending Unavailable Calos, Chalon Primary Care Unavailable Calos, Chalon Referring Unavailable Calos, Chalon Primary Care Unavailable Jessica, [place] Attending Unavailable Calos, Chalon Primary Care Unavailable Jessica, Octavio Referring Unavailable Jessica, [place] Attending Unavailable Allergies Allergy Classification Reported Allergen(s) Allergy Type Date of Onset Reaction(s) Facility (14 sources) azithromycin; Translations: [AZITHROMYCIN] drug allergy 5 Other: See Comments, Unknown [facility] [employer] [facility] Work Phone: Comment on above: per pt impairs kidne y function and she was unable to walk for 1 week (4 sources) NKDA drug allergy 3 [facility] [employer] [facility] Work Phone: (6 sources) Pravastatin Drug Allergy 1 mylagias [facility] (2 sources) Isosorbide; Translations: [ISOSORBIDE MONONITRATE] Drug Allergy 5 Intolerance [facility] Work Phone: (1 source) Erythromycin; Translations: [erythromycin] Drug Allergy [facility] (1 source) Pravastatin Drug Allergy 5 [facility] Repository Medications Current Medications Medication Drug Class(es) Dates Sig (Normalized) Sig (Original) amLODIPine 5 mg oral tablet (20 sources) Dihydropyridine Calcium Channel Brandon Start: 06-21-2024 take 1 tablet by mouth once daily Amlodipine (Norvasc) 5 mg tablet Active 5 mg PO daily June 21, 2024 12:00am Start: 01-17-2024 End: 02-22-2024 take 1 tablet by mouth once daily Amlodipine 2.5 mg tablet Discontinued 2.5 mg PO daily January 17, 2024 1:00am February 22, 2024 11:34am Start: 01-10-2024 End: 01-10-2024 take 1 tablet by mouth once daily Amlodipine 5 mg tablet Discontinued 5 mg PO .COMPLEX January 10, 2024 4:17pm January 10, 2024 11:06pm 5 mg orally daily at noon; Start: 11-08-2023 End: 11-29-2023 take 1 tablet by mouth once daily Amlodipine (Norvasc) 2.5 mg tablet Discontinued 2.5 mg PO DAILY November 08, 2023 12:00am November 29, 2023 11:49am Start: 06-30-2023 End: 08-16-2023 take 1 tablet by mouth once daily Amlodipine 2.5 mg tablet Discontinued 2.5 mg PO DAILY June 30, 2023 12:00am August 16, 2023 8:30am Start: 01-23-2023 End: 02-09-2023 take 1 tablet by mouth once daily Amlodipine 5 mg tablet Discontinued 5 mg PO DAILY 90 January 25, 2023 9:58am February 09, 2023 10:25am Start: 01-07-2020 End: 01-16-2020 take 2.5 mg by mouth once daily Amlodipine 5 mg tablet Discontinued 2.5 mg PO DAILY January 07, 2020 1:00am January 16, 2020 2:55pm Start: 01-07-2020 End: 01-16-2020 take 2.5 mg by mouth once daily Amlodipine Discontinue d 2.5 MG PO DAILY January 07, 2020 12:00am January 16, 2020 1:55pm Start: 12-13-2017 End: 01-25-2019 take 1 tablet by mouth once daily Amlodipine 5 MG tablet Discontinued 5 mg PO DAILY 60 December 13, 2017 12:00am January 25, 2019 11:09am apixaban 2.5 mg oral tablet (8 sources) Factor Xa Inhibitor Start: 07-09-2021 End: 02-23-2024 take 1 tablet by mouth twice daily Apixaban (Eliquis) 2.5 mg tablet Active 2.5 mg PO TWICE A DAY 180 February 23, 2024 2:31pm atorvastatin 10 mg oral tablet (20 sources) HMG-CoA Reductase Inhibitor Start: 08-26-2014 atorvastatin (LIPITOR) 10 mg tablet Taking every other day 08/26/2014 Active Start: 02-21-2012 End: 12-03-2015 take 1 tablet by mouth once daily LIPITOR 10 MG TABS One tablet by mouth daily ATORVASTATIN CALCIUM [id number] Octavio Lopez MD carvedilol 12.5 mg oral tablet (20 sources) alpha-Adrenergic Brandon, beta-Adrenergic Brandon Start: 02-22-2024 End: 03-12-2024 take 1 tablet by mouth twice daily Carvedilol 12.5 mg tablet Active 12.5 mg PO TWICE A DAY 180 March 12, 2024 2:45pm Start: 01-10-2024 End: 02-22-2024 take 1 tablet by mouth twice daily at mealtime Carvedilol 6.25 mg tablet Discontinued 6.25 mg PO TWICE A DAY 180 January 10, 2024 3:44pm February 22, 2024 11:33am must administer with a meal/food Start: 02-23-2023 End: 01-10-2024 take 1 tablet by mouth twice daily at mealtime Carvedilol 3.125 mg tablet Discontinued 3.125 mg PO TWICE A DAY 180 February 23, 2023 1:00am January 10, 2024 3:44pm must administer with a meal/food Start: 01-25-2023 End: 02-23-2023 take 1 tablet by mouth twice daily at mealtime Carvedilol 6.25 mg tablet Discontinued 6.25 mg PO TWICE A DAY 180 January 25, 2023 9:59am February 23, 2023 12:20pm must administer with a meal/food Start: 01-07-2020 End: 01-25-2023 take 1 tablet by mouth twice daily at mealtime Carvedilol 3.125 mg tablet Discontinued 3.125 mg PO TWICE A DAY 180 June 02, 2022 2:55pm January 25, 2023 10:00am must administer with a meal/food cholecalciferol 0.125 mg oral capsule (7 sources) Vitamin D Start: 12-12-2017 take 1 capsule by mouth once daily Cholecalciferol (Vitamin D3) 5,000 UNIT capsule Active 5000 U PO DAILY December 12, 2017 12:00am clopidogrel 75 mg oral tablet (16 sources) P2Y12 Platelet Inhibitor Start: 02-22-2024 End: 03-12-2024 take 1 tablet by mouth once daily Clopidogrel 75 mg tablet Active 75 mg PO daily March 12, 2024 2:46pm CO2 [Moles/Vol] 29.0 mmol/L 21.0-32.0 [facility] Work Phone: Globulin (S) [Mass/Vol] 4.3 g/dL 2.2-4.2 [facility] Work Phone: Urea nitrogen/Creatinine [Mass ratio] 29.5 mg/mg 12-24 [facility] Work Phone: Laboratory - Hematology and Cell countson 06-15-2021 Erythrocyte distribution width (RBC) [Entitic vol] 46.1 fL 35.1-43.9 [facility] Work Phone: Erythrocyte distribution width (RBC) [Ratio] 13.0 % 11.6-14.6 [facility] Work Phone: Immature granulocytes/100 WBC (Bld) 0.200 % 0.0-0.9 [facility] Work Phone: Comment on above: IG% - Immature Granu locytes (promyelocytes, myelocytes and metamyelocytes) > 1% indicates that a LEFT SHIFT is Present. MCH (RBC) [Entitic mass] 31.6 pg 27.0-32.0 [facility] Work Phone: Nucleated RBC/100 WBC (Bld) [Ratio] 0 % 0-5 [facility] Work Phone: MCHC Auto (RBC) [Mass/Vol]on 06-15-2021 MCHC (RBC) [Mass/Vol] 32.5 g/dL 32-36 [facility] Work Phone: No Panel Informationon 06-15 Anti-Nuclear Antibody Screen Negative Negative [facility] Work Phone: Comment on above: Performed at: [place] [id number] Director: Nirmal Isidro PhD, Phone: [phone] Estimated GFR (MDRD) Amer 100 mL/min >60 [facility] Work Phone: Comment on above: GFR Calc Estimated GFR (MDRD) Non-Af Amer 83 mL/min >60 [facility] Work Phone: Comment on above: Non- GFR Calc Hepatitis B Surface Antigen Non-Reactive Nonreactive [facility] Work Phone: Hepatitis C Antibody Non-Reactive Nonreactive [facility] Work Phone: Comment on above: Non Reactive: < 0.8 Equivocal: >/= 0.8 to < 1.0 Reactive: >/= 1.0The CDC recommends that a reactive/equivocal HCV antibody result be followed up by the HCV Nucleic Acid Amplificationtest (311500) Platelets bldon 06-15-2021 Platelets (Bld) [#/Vol] 320 10*3/uL 150-450 [facility] Work Phone: Serum cyclic citrullinated p eptide IgG antibody assay (units/volume)on 06-15-2021 Cyclic citrullinated peptide IgG Qn 2 units [facility] Work Phone: Comment on above: Negative <20 Weak po sitive 20 - 39 Moderate positive 40 - 59 Strong positive >59Performed at: [address] [id number] Director: Shara Gilman MD, Phone: [phone] Serum hepatitis B virus surf kathleen antibody IgG detectionon 06-15-2021 HBV surface IgG Ql (S) Non-Reactive [facility] Work Phone: Comment on above: Non Reactive: Incons istent with immunity less than <10 mIU/mL Reactive: Consistent with immunity greater than or equal to 10 mIU/mL Serum or plasma C reactive p rotein measurement (mass/volume)on 06-15-2021 CRP [Mass/Vol] 27.40 mg/L 0.0-3.0 [facility] Work Phone: Comment on above: C-Reactive Protein ( CRP) provides useful information for thediagnosis, therapy and monitoring of inflammatory processesand associated diseases. For the evaluation of Relative Riskfor Cardiovascular Disease, a High Sensitivity CRP (HSCRP)should be ordered. Serum or plasma albumin bony urement (mass/volume)on 06-15-2021 Albumin [Mass/Vol] 3.3 g/dL 3.2-5.0 [facility] Work Phone: Serum or plasma albumin/glob ulin mass ratioon 06-15-2021 Albumin/Globulin [Mass ratio] 0.8 {ratio} 0.9-2.4 [facility] Work Phone: Serum or plasma calcium bony urement (mass/volume)on 06-15-2021 Calcium [Mass/Vol] 9.2 mg/dL 8.5-10.1 [facility] Work Phone: Serum or plasma creatinine m easurement (mass/volume)on 06-15-2021 Creatinine [Mass/Vol] 0.71 mg/dL 0.55-1.02 [facility] Work Phone: Comment on above: The validity of the calculated GFR & GFRAA in patients over 70 years has not been determined. Clinical correlation is essential. Serum or plasma urea nitroge n measurement (mass/volume)on 06-15-2021 Urea nitrogen [Mass/Vol] 21 mg/dL 7-18 [facility] Work Phone: Serum rheumatoid factor dete ctionon 06-15-2021 Rheumatoid factor Ql (S) < 10.0 IU/mL <15 [facility] Work Phone: Thin prep Papanicolaou smear with manual screeningon 06-15-2021 Thin prep Papanicolaou smear with manual screening 18 U/L 15-37 [facility] Work Phone: Thin prep Papanicolaou smear with manual screening 6 5-15 [facility] Work Phone: Office Visiton 11-25-2016 Documentation of current medications (procedure) Done Invalid Interpretation Code [facility] Work Phone: [phone] Fall risk assessment No Invalid Interpretation Code [facility] [employer] Work Phone: [phone] Protein mass conc Done Invalid Interpretation Code [facility] Work Phone: Office Visit: [facility] 06-03-19 17 Documentation of current medications (procedure) Done Invalid Interpretation Code [employer] Work Phone: [phone] Fall risk assessment No Invalid Interpretation Code [facility] Work Phone: Office Visiton 12-03-2015 Dietary management education, guidance, and counseling (procedure) yes Invalid Interpretation Code [employer] Work Phone: [phone] Tobacco smoking status NHIS Never smoker Invalid Interpretation Code [facility] Work Phone: Tobacco use CPHS Never smoker Invalid Interpretation Code [employer] Work Phone: [phone] Replaced Document: Hilda Nielsen CG Observationson 06-04-2015 EKG QRS axis 31 deg Invalid Interpretation Code [employer] Work Phone: [phone] electrocardiogram interpretation Sinus Rhythm WITHIN NORMAL LIMITS Invalid Interpretation Code [employer] Work Phone: [phone] GE use only - for [employer] import when terms are not otherwise specified 410 ms Invalid Interpretation Code [employer] Work Phone: [phone] Interpretation Sinus Rhythm WITHIN NORMAL LIMITS Invalid Interpretation Code [employer] Work Phone: [phone] P [place] 43 deg Invalid Interpretation Code [employer] Work Phone: [phone] P wave axis, electrocardiogram 43 deg Invalid Interpretation Code [employer] Work Phone: [phone] CA Interval 176 ms Invalid Interpretation Code [employer] Work Phone: [phone] CA interval, electrocardiogram 176 ms Invalid Interpretation Code [employer] [facility] Work Phone: [phone] Pulse (Heart Rate) 66 /min Invalid Interpretation Code [employer] Work Phone: [phone] QRS axis, electrocardiogram 31 deg Invalid Interpretation Code [employer] Work Phone: [phone] QRS Duration 84 ms Invalid Interpretation Code [employer] Work Phone: [phone] QRS duration, electrocardiogram 84 ms Invalid Interpretation Code [facility] Phone: [phone] QT Interval new path ms Invalid Interpretation Code [employer] Work Phone: [phone] QT interval, electrocardiogram new path ms Invalid Interpretation Code [facility] [employer] Work Phone: [phone] QTc Armstrong 410 ms Invalid Interpretation Code [employer] Work Phone: [phone] T [place] 55 deg Invalid Interpretation Code [employer] Work Phone: [phone] T wave axis, electrocardiogram 55 deg Invalid Interpretation Code [employer] Work Phone: [phone] Clinical Lists Updateon 05-06 Left ventricular Ejection fraction 65 % Invalid Interpretation Code [facility] Phone: [phone] Clinical Lists Update: Prelo chiller tender 09-16-2014 Alanine aminotransferase (ALT) 32 U/L Invalid Interpretation Code [employer] Work Phone: [phone] Albumin 3.5 g/dL Invalid Interpretation Code [facility] Work Phone: [phone] Albumin/Globulin Ratio 0.9 {ratio} Invalid Interpretation Code [facility] Work Phone: [phone] Alkaline phosphatase (ALP) 63 U/L Invalid Interpretation Code [facility] Work Phone: [phone] ALP enzyme act/vol (Bld) 63 U/L Invalid Interpretation Code [facility] Work Phone: [phone] Anion gap 8 mmol/L Invalid Interpretation Code [facility] Work Phone: [phone] Anion gap 4 molar conc 8 Invalid Interpretation Code [facility] Work Phone: [phone] Aspartate aminotransferase (AST) 27 U/L Invalid Interpretation Code [facility] Work Phone: [phone] basophils as percent of blood leukocytes, manual count 0.3 % Invalid Interpretation Code [facility] Work Phone: [phone] Bilirubin (total) 0.40 mg/dL Invalid Interpretation Code [facility] Work Phone: [phone] BUN/Creatinine Ratio 17.5 mg/mg Invalid Interpretation Code [facility] Work Phone: [phone] Calcium 9.1 mg/dL Invalid Interpretation Code [facility] Work Phone: [phone] Chloride 103 mmol/L Invalid Interpretation Code [facility] Work Phone: [phone] CO2 27.0 mmol/L Invalid Interpretation Code [facility] Work Phone: [phone] CO2 ppres (BldV) 27.0 mmol/L Invalid Interpretation Code [facility] [employer] Work Phone: [phone] Creatinine 0.8 mg/dL Invalid Interpretation Code [facility] Work Phone: [phone] eosinophils as percent of blood leukocytes, manual count 2.5 % Invalid Interpretation Code [facility] Work Phone: [phone] Erythrocytes (RBC) 4.02 10*6/uL Low [facility] Work Phone: [phone] Globulin 3.7 g/dL Invalid Interpretation Code [facility] Work Phone: [phone] Glucose 86 mg/dL Invalid Interpretation Code [facility] [employer] Work Phone: [phone] Glucose mass conc 86 mg/dL Invalid Interpretation Code [facility] Work Phone: [phone] Hematocrit (HCT) 39.6 % Invalid Interpretation Code [facility] Work Phone: [phone] Hemoglobin (HGB) 13.1 g/dL Invalid Interpretation Code [facility] Work Phone: [phone] Lymphocytes/100 leukocytes 37.6 % Invalid Interpretation Code [facility] Work Phone: [phone] MCH 32.6 pg High [facility] Work Phone: [phone] MCHC 33.1 g/dL Invalid Interpretation Code [employer] [facility] Work Phone: [phone] MCV 98.5 fL Invalid Interpretation Code [facility] Work Phone: [phone] Monocytes/100 leukocytes 9.8 % Invalid Interpretation Code [facility] Work Phone: [phone] neutrophils, band form as percent of blood leukocytes, manual count 49.5 % Invalid Interpretation Code [facility] Work Phone: [phone] Platelets 242 10*3/mm3 Invalid Interpretation Code [facility] Work Phone: [phone] PMV by [place] 11.0 fL Invalid Interpretation Code [facility] Work Phone: [phone] Potassium 4.3 mmol/L Invalid Interpretation Code [facility] Work Phone: [phone] Protein 7.2 g/dL Invalid Interpretation Code [facility] Work Phone: [phone] RDW-CA 13.2 % Invalid Interpretation Code [facility] Work Phone: [phone] Sodium 138 mmol/L Invalid Interpretation Code [facility] Work Phone: [phone] Thyroid stimulating hormone (TSH) 2.28 u[iU]/mL Invalid Interpretation Code [facility] Work Phone: [phone] Urea nitrogen 14 mg/dL Invalid Interpretation Code [facility] Work Phone: [phone] WBC (Leukocytes) 4.0 10*3/uL Low [facility] Work Phone: [phone] Office Visit: [facility] 07-11-19 15 Tobacco smoking status NHIS Never Invalid Interpretation Code [employer] Work Phone: [phone] Office Visit: [facility] 06-18-19 15 Cholesterol 244 mg/dL Invalid Interpretation Code [facility] Work Phone: [phone] Coagulation tissue factor induced in platelet poor plasma 2.3 s Invalid Interpretation Code [facility] Work Phone: [phone] HDL Cholesterol 45 mg/dL Invalid Interpretation Code [facility] Work Phone: [phone] LDL Cholesterol 152 mg/dL Invalid Interpretation Code [facility] Work Phone: [phone] Triglyceride 237 mg/dL Invalid Interpretation Code [facility] Work Phone: [phone] Office Visiton 04-11-2014 cardiac risk group C Invalid Interpretation Code [facility] Work Phone: [phone] General cardiovascular disease 10Y risk [#] [place].D'Agostino N/A Invalid Interpretation Code [facility] Work Phone: [phone] Lab Report: PTon 07-20-2013 INR Coag RelTime (PPP) 1.7 {INR} Normal [facility] Work Phone: [phone] INR in blood by coagulation 1.7 {INR} Normal [facility] Work Phone: [phone] prothrombin time, actual/normal, ratio 18.8 SECONDS High 11.9-14.4 [facility] Work Phone: [phone] PTP 18.8 SECONDS High 11.9-14.4 [facility] Work Phone: [phone] Lab Report: [facility] - copyon specific gravity, urine 1.015 Normal 1.002-1.030 [facility] Work Phone: [phone] EKG Report: [facility] ECG Obse rvationson 03-16-2013 Pulse (Heart Rate) 412 ms Invalid Interpretation Code [facility] Work Phone: [phone] Lab Report: Ordered by Dr. Crow schulte 02-13-2013 very low density lipoproteins 27 mg/dL Invalid Interpretation Code [facility] Work Phone: [phone] Influenza virus A and B and SARS-CoV-2 (COVID-19) Ag panel - Upper respiratory specim SARS-CoV-2 (COVID-19) RNA ZACH+probe Ql (Resp) [facility] Work Phone: Vital Signs Date Time Vital Sign Value Performing Clinician Gris whitehead 06-21-2024 08:41-0400 Body height 157.48 cm Amadou Liu MD Work Phone: [facility] 06-21-2024 08:41-0400 Body mass index (BMI) [Ratio] 28.1 kg/m2 Amadou Liu MD Work Phone: [facility] 06-21-2024 08:41-0400 Body weight 69.85 kg Amadou Liu MD Work Phone: [facility] 06-21-2024 08:41-0400 Diastolic blood pressure 89 mm[Hg] Amadou Liu MD Work Phone: [facility] 06-21-2024 08:41-0400 Heart rate 65 /min Amadou Liu MD Work Phone: [facility] 06-21-2024 08:41-0400 Respiratory rate 16 /min Amadou Liu MD Work Phone: [facility] 06-21-2024 08:41-0400 Systolic blood pressure 206 mm[Hg] Amadou Liu MD Work Phone: [facility] 06-05-2024 11:36-0400 Body height 157.48 cm Amadou iLu MD Work Phone: [facility] 06-05-2024 11:36-0400 Body mass index (BMI) [Ratio] 28.5 kg/m2 Amadou Liu MD Work Phone: [facility] 06-05-2024 11:36-0400 Body weight 70.76 kg Amadou Liu MD Work Phone: [facility] 06-05-2024 11:36-0400 Diastolic blood pressure 82 mm[Hg] Amadou Liu MD Work Phone: [facility] 06-05-2024 11:36-0400 Heart rate 66 /min Amadou Liu MD Work Phone: [facility] 06-05-2024 11:36-0400 Respiratory rate 16 /min Amadou Liu MD Work Phone: [facility] 06-05-2024 11:36-0400 Systolic blood pressure 176 mm[Hg] Amadou Liu MD Work Phone: [facility] 02-22-2024 10:30-0500 Body mass index (BMI) [Ratio] 27.6 kg/m2 Amadou Liu MD Work Phone: [facility] 02-22-2024 10:30-0500 Body weight 68.49 kg Amadou Liu MD Work Phone: [facility] 02-22-2024 10:30-0500 Diastolic blood pressure 80 mm[Hg] Amadou Liu MD Work Phone: [facility] 02-22-2024 10:30-0500 Heart rate 66 /min Amadou Liu MD Work Phone: [facility] 02-22-2024 10:30-0500 Respiratory rate 16 /min Amadou Liu MD Work Phone: [facility] 02-22-2024 10:30-0500 SaO2% (BldA) [Mass fraction] 96 % Amadou Liu MD Work Phone: [facility] 02-22-2024 10:30-0500 Systolic blood pressure 124 mm[Hg] Amadou Liu MD Work Phone: [facility] 01-23-2024 05:59-0500 Diastolic Blood Pressure Non-Invasive 73 mm[Hg] MARIANNE PINEDA DO [facility] 01-23-2024 05:59-0500 Heart rate 60 /min MARIANNE PINEDA DO [facility] 01-23-2024 05:59-0500 Respiratory rate 16 /min MARIANNE PINEDA DO [facility] 01-23-2024 05:59-0500 Systolic Blood Pressure Non-Invasive 163 mm[Hg] MARIANNE PINEDA DO [facility] 01-23-2024 04:16-0500 Diastolic Blood Pressure Non-Invasive 79 mm[Hg] MARIANNE PINEDA DO [facility] 01-23-2024 04:16-0500 Heart rate 59 /min MARIANNE PINEDA DO [facility] 01-23-2024 04:16-0500 Respiratory rate 16 /min MARIANNE PINEDA DO [facility] 01-23-2024 04:16-0500 Systolic Blood Pressure Non-Invasive 158 mm[Hg] MARIANNE PINEDA DO [facility] 01-23-2024 03:33-0500 Diastolic Blood Pressure Non-Invasive 98 mm[Hg] MARIANNE PINEDA DO [facility] 01-23-2024 03:33-0500 Heart rate 62 /min MARIANNE PINEDA DO [facility] 01-23-2024 03:33-0500 Respiratory rate 17 /min MARIANNE PINEDA DO [facility] 01-23-2024 03:33-0500 Systolic Blood Pressure Non-Invasive 159 mm[Hg] MARIANNE PINEDA DO [facility] 01-23-2024 02:32-0500 Body temperature 97.7 [degF] MARIANNE PINEDA DO [facility] 01-23-2024 02:32-0500 Body weight 69.8 kg MARIANNE PINEDA DO [facility] 01-23-2024 02:32-0500 Heart rate 74 /min MARIANNE PINEDA DO [facility] 01-23-2023 10:58-0500 Diastolic blood pressure 82 mm[Hg] No Primary Care Physician [facility] 01-23-2023 10:58-0500 Heart rate 72 /min No Primary Care Physician [facility] 01-23-2023 10:58-0500 Respiratory rate 14 /min No Primary Care Physician [facility] 01-23-2023 10:58-0500 SaO2% (BldA) [Mass fraction] 99 % No Primary Care Physician [facility] 01-23-2023 10:58-0500 Systolic blood pressure 174 mm[Hg] No Primary Care Physician [facility] 01-23-2023 08:46-0500 Body height 157.48 cm No Primary Care Physician [facility] 01-23-2023 08:46-0500 Body mass index (BMI) [Ratio] 30.5 kg/m2 No Primary Care Physician [facility] 01-23-2023 08:46-0500 Body temperature 96.5 [degF] No Primary Care Physician [facility] 01-23-2023 08:46-0500 Body weight 75.7 kg No Primary Care Physician [facility] 12-06-2022 09:18-0400 Diastolic blood pressure 84 mm[Hg] No Primary Care Physician [facility] 12-06-2022 09:18-0400 Systolic blood pressure 142 mm[Hg] No Primary Care Physician [facility] 12-06-2022 08:50-0400 Body mass index (BMI) [Ratio] 30.3 kg/m2 No Primary Care Physician [facility] 12-06-2022 08:50-0400 Body weight 75.29 kg No Primary Care Physician [facility] 12-06-2022 08:50-0400 Heart rate 81 /min No Primary Care Physician [facility] 12-06-2022 08:50-0400 Respiratory rate 18 /min No Primary Care Physician [facility] 12-06-2022 08:50-0400 SaO2% (BldA) [Mass fraction] 98 % No Primary Care Physician [facility] 03-09-2022 22:59-0500 Diastolic blood pressure 93 mm[Hg] No Primary Care Physician [facility] Work Phone: 03-09-2022 22:59-0500 Heart rate 88 /min No Primary Care Physician [facility] Work Phone: 03-09-2022 22:59-0500 Respiratory rate 16 /min No Primary Care Physician [facility] Work Phone: 01-03-2023 22:59-0500 SaO2% (BldA) [Mass fraction] 96 % No Primary Care Physician [facility] Work Phone: 03-09-2022 22:59-0500 Systolic blood pressure 184 mm[Hg] No Primary Care Physician [facility] Work Phone: 03-09-2022 22:47-0500 Body height 157.48 cm No Primary Care Physician [facility] Work Phone: 03-09-2022 22:47-0500 Body mass index (BMI) [Ratio] 30.5 kg/m2 No Primary Care Physician [facility] Work Phone: 03-09-2022 22:47-0500 Body temperature 96.7 [degF] No Primary Care Physician [facility] Work Phone: 03-09-2022 22:47-0500 Body weight 75.74 kg No Primary Care Physician [facility] Work Phone: 12-09-2021 11:00-0400 Body mass index (BMI) [Ratio] 30.2 kg/m2 No Primary Care Physician [facility] Work Phone: 12-09-2021 11:00-0400 Body weight 74.84 kg No Primary Care Physician [facility] Work Phone: 12-09-2021 11:00-0400 Diastolic blood pressure 77 mm[Hg] No Primary Care Physician [facility] Work Phone: 12-09-2021 11:00-0400 Heart rate 82 /min No Primary Care Physician [facility] Work Phone: 12-09-2021 11:00-0400 Respiratory rate 16 /min No Primary Care Physician [facility] Work Phone: 12-09-2021 11:00-0400 SaO2% (BldA) [Mass fraction] 97 % No Primary Care Physician [facility] Work Phone: 12-09-2021 11:00-0400 Systolic blood pressure 146 mm[Hg] No Primary Care Physician [facility] Work Phone: 11-25-2016 10:16-0400 BMI (Body Mass Index) 31.72 kg/m2 [facility] Work Phone: 11-25-2016 10:16-0400 BP Diastolic 98 mm[Hg] Nallely Adams [facility] Work Phone: 11-25-2016 10:16-0400 BP Systolic 164 mm[Hg] Nallely Adams [facility] Work Phone: 11-25-2016 10:16-0400 Height 157.48 cm Nallely Adams [facility] Work Phone: 11-25-2016 10:16-0400 Pulse (Heart Rate) 72 /min Nallely Adams [facility] Work Phone: 11-25-2016 10:16-0400 Respiratory Rate 18 /min Nallely Adams [facility] Work Phone: 11-25-2016 10:16-0400 Weight 78.67 kg Nallely Adams [facility] Work Phone: 06-02-2016 11:20-0400 BMI (Body Mass Index) 33.25 kg/m2 Shirley Jewell RN [facility] Work Phone: 06-02-2016 11:20-0400 BP Diastolic 70 mm[Hg] Shirley Jewell RN [facility] Work Phone: 06-02-2016 11:20-0400 BP Systolic 110 mm[Hg] Shirley Jewell RN [facility] Work Phone: 06-02-2016 11:20-0400 Height 157.48 cm Shirley Jewell RN [facility] Work Phone: 06-02-2016 11:20-0400 Pulse (Heart Rate) 64 /min Shirley Jewell RN [facility] Work Phone: 06-02-2016 11:20-0400 Respiratory Rate 16 /min Shirley Jewell RN [facility] Work Phone: [phone] 11:20-0400 Weight 82.46 kg Shirley Jewell RN [facility] Work Phone: 03-10-2016 15:15-0500 BSA (Body Surface Area) 1.84 m2 Shirley Jewell RN [facility] Work Phone: 06-04-2015 08:51-0400 Heart rate 66 /min Nallely Adams [facility] Work Phone: 10-02-2014 08:53-0400 Body Temperature 97.7 [degF] Shirley Jewell RN [facility] Work Phone: 10-02-2014 08:53-0400 Pulse Oximetry 96 % Shirley Jewell RN [facility] Work Phone: 07-23-2013 12:31-0400 Height 157.48 cm Shirley Jewell RN [facility] Work Phone: 07-23-2013 12:31-0400 Weight 85 kg Shirley Jewell RN [facility] Work Phone: 03-16-2013 14:28-0500 Heart rate 412 ms Nallely Adams [facility] Work Phone: Encounters Encounter Date Encounter Type Care Provider Facility Start: 07-17-2024 Non-patient / Non-visit Dr. Octavio Lopez MD -[facility] Start: 07-17-2024 End: 07-17-2024 ambulatory Amadou Liu MD Work Phone: [facility] Work Phone: Start: 07-17-2024 End: 07-17-2024 Patient encounter procedure Anali MENDEZ -[facility] Work Phone: Start: 07-17-2024 End: 07-17-2024 ambulatory Amadou Liu Facility:[facility] Start: 06-21-2024 End: 06-21-2024 Patient encounter procedure Anali MENDEZ -[facility] Work Phone: Start: 06-21-2024 End: 06-21-2024 ambulatory Kaydentamela Calos Facility:[facility] Start: 06-05-2024 End: 06-05-2024 Patient encounter procedure Anali MENDEZ -[facility] Work Phone: Start: 06-05-2024 End: 06-05-2024 ambulatory Amadou Liu MD Work Phone: [facility] Work Phone: Start: 06-05-2024 End: 06-05-2024 ambulatory Kaydentamela Calos Facility:[facility] Start: 03-12-2024 Non-patient / Non-visit Dr. Octavio Lopez MD -[facility] Start: 03-12-2024 End: 03-12-2024 ambulatory Amadou Liu MD Work Phone: [facility] Work Phone: Start: 03-12-2024 End: 03-12-2024 Patient encounter procedure Amadou Liu MD Work Phone: -[facility] Work Phone: Start: 03-12-2024 End: 03-12-2024 ambulatory ISABEL STYLES Facility:[facility] Start: 02-24-2024 End: 02-24-[address] Amadou Liu MD -Laboratory, Specimen Work Phone: Start: 02-24-2024 End: 02-24-2024 ambulatory Amadou Liu Facility:[facility] Start: 02-22-2024 End: 02-22-2024 Patient encounter procedure Anali MENDEZ [facility] Work Phone: Start: 02-22-2024 End: 02-22-2024 ambulatory Amadou Liu Facility:[facility] Start: 02-13-2024 Non-patient / Non-visit Dr. Octavio Lopez MD -[facility] Start: 02-13-2024 ambulatory Amadou Liu Facility:[facility] Start: 02-04-2024 Patient encounter status Amadou Liu MD Work Phone: [facility] Start: 02-04-2024 End: 02-04-2024 Emergency department patient visit Amadou Liu Facility:[facility] Start: 01-23-2024 End: 01-23-2024 ambulatory Erik Lucas BULKER Facility:[facility] Start: 01-23-2024 End: 01-23-2024 Emergency department patient visit MARIANNE PINEDA DO [facility] Start: 01-10-2024 End: 01-10-2024 Emergency department patient visit Hiram Landy Facility:[facility] Start: 01-07-2024 Emergency department patient visit WHIT BERWICK Facility:[facility] Start: 01-06-2024 End: 01-06-2024 ambulatory Rc Ramirez ONLINE ADVERTISING ANALYST.ONCOLOGY ADMIN Work Phone: Cardiology Start: 01-06-2024 End: 01-06-2024 Patient encounter procedure Rc Tray-Tierney ONLINE ADVERTISING ANALYST.ONCOLOGY ADMIN Work Phone: Cardiology Comment on above: [facility] Consult Start: 12-26-2023 End: 12-26-2023 Telephone encounter Whit Franco MD Work Phone: Cardiology Comment on above: [facility] Start: 12-26-2023 ambulatory [facility] Start: 12-23-2023 End: 12-23-2023 Telephone encounter Cardiac Surgeon - Unspecified [facility] Start: 12-23-2023 ambulatory [facility] Start: 12-21-2023 End: 12-21-2023 ambulatory Erik Lucas BULKER Facility:[facility] Start: 12-21-2023 ambulatory Amadou Liu [facility] Start: 12-21-2023 End: 12-21-2023 ambulatory Priyanka Marks NP Facility:[facility] Start: 11-29-2023 End: 11-29-2023 ambulatory Priyanka Marks NP Facility:[facility] Start: 11-29-2023 End: 11-29-2023 ambulatory Priyanka Marks BULKER Facility:[facility] Start: 11-08-2023 End: 11-08-2023 Emergency department patient visit Amadou Liu Facility:[facility] Start: 08-16-2023 End: 08-16-2023 ambulatory No Primary Care Physician Facility:[facility] Start: 08-12-2023 End: 08-12-2023 ambulatory Amadou Liu Facility:[facility] Start: 01-23-2023 End: 01-23-2023 Emergency department patient visit No Primary Care Physician [facility]-Emergency Department Work Phone: Start: 12-15-2022 Non-patient / Non-visit No Primary Care Physician [facility] Work Phone: Start: 12-15-2022 Non-patient / Non-visit No Primary Care Physician [facility] Start: 12-15-2022 End: 12-15-2022 Patient encounter procedure [facility] Start: 12-06-2022 End: 12-06-2022 Patient encounter procedure No Primary Care Physician [facility] Work Phone: Start: 03-09-2022 End: 03-10-2022 Emergency department patient visit No Primary Care Physician [facility]-Emergency Department Start: 12-28-2021 Non-patient / Non-visit No Primary Care Physician [facility] Start: 12-28-2021 End: 12-28-2021 Patient encounter procedure No Primary Care Physician [facility] Start: 12-09-2021 End: 12-09-2021 Patient encounter procedure No Primary Care Physician [facility] [employer] Start: 06-15-2021 End: 06-15-2021 Patient encounter procedure [facility]Laboratory, [place] Procedures Date Procedure Procedure Detail Performing Clinician Start: 02-24-2024 Urine culture Amadou solares MD Work Phone: Start: 01-23-2023 Plain chest X-ray No Pr imary Care Physician Start: 03-09-2022 Plain chest X-ray No Pr imary Care Physician Start: 06-15-2021 Pelvis X-ray Start: 06-15-2021 Plain x-ray of hand Start: 06-15-2021 Plain X-ray of shoulder Start: 11-25-2016 End: 12-20-2016 Echocardiography Octavio Lopez MD Start: 11-25-2016 End: 12-23-2016 Nuclear stress test -Silvia Lopez MD Start: 06-02-2016 End: 06-02-2016 SUPERINTENDENT CIRCUSANDREA Gillespie-C Work Phone: Start: 06-02-2016 End: 06-02-2016 Follow Up Appt 6 months ANDREA Howard-C Work Phone: Start: 06-02-2016 End: 06-02-2016 TEJ MoralesC Work Phone: Start: 06-02-2016 End: 06-02-2016 Follow Up Appt 6 months ANDREA Howard-C Work Phone: Start: 03-10-2016 End: 05-24-2016 Ambulatory BP Monitor 24 HR ANDREA Chaves-C Work Phone: Start: 03-10-2016 End: 03-10-2016 Follow Up Appt Other ANDREA Camacho-C Work Phone: Start: 03-10-2016 End: 05-24-2016 Ambulatory BP Monitor 24 HR Anali Linares PA-C Work Phone: Start: 03-10-2016 End: 03-10-2016 Follow Up Appt Other ANDREA Camacho-C Work Phone: Start: 12-03-2015 End: 12-03-2015 Follow Up Appt 6 months Kaleigh Mendoza Start: 12-03-2015 End: 12-03-2015 JEVON Lopez MD Start: 12-03-2015 End: 12-03-2015 Dietary management education, guidance, and counseling Nallely Adams Start: 12-03-2015 End: 12-03-2015 Follow Up Appt 6 months Kaleigh Mendoza Start: 12-03-2015 End: 12-03-2015 JEVON Lopez MD Start: 06-04-2015 End: 06-04-2015 SUPERINTENDENT CIRCUS Anali Daniel PA-C Work Phone: Start: 06-04-2015 End: 06-04-2015 Ecg routine ecg w/least 12 lds w/i&r Anali Daniel PA-C Work Phone: Start: 06-04-2015 End: 06-04-2015 Follow Up Appt 6 months Anali cleary PA-C Work Phone: Start: 06-04-2015 End: 06-04-2015 SUPERINTENDENT CIRCUS Anali Daniel PA-C Work Phone: Start: 06-04-2015 End: 06-04-2015 Electrocardiogram, complete Anali Linares PA-C Work Phone: Start: 06-04-2015 End: 06-04-2015 Follow Up Appt 6 months Anali cleary PA-C Work Phone: Start: 12-04-2014 End: 12-05-2014 Documentation of current medications cOtavio Lopez MD Start: 12-04-2014 End: 12-04-2014 Follow Up Appt 6 months Kaleigh Mendoza Start: 12-04-2014 End: 12-04-2014 JEVON Lopez MD Start: 12-04-2014 End: 12-05-2014 Documentation of current medications Octavio Lopez MD Start: 12-04-2014 End: 12-04-2014 Follow Up Appt 6 months Kaleigh Mendoza Start: 12-04-2014 End: 12-04-2014 JEVON Lopez MD Start: 10-02-2014 End: 10-04-2014 Documentation of current medications Nicholas Hurtado Work Phone: Start: 10-02-2014 End: 10-04-2014 Documentation of current medications Nicholas Hurtado Work Phone: Start: 08-26-2014 History of placement of stent for coronary artery disease S/P coronary artery stent placement Rc Ramirez APRN.CNP Work Phone: Start: 07-10-2014 End: 07-10-2014 SUPERINTENDENT CIRCUS Anali Daniel PA-C Work Phone: Start: 07-10-2014 End: 07-11-2014 Documentation of current medications Anali Daniel PA-C Work Phone: Start: 07-10-2014 End: 07-10-2014 Follow Up Appt 4 months Anali cleary PA-C Work Phone: Start: 07-10-2014 End: 07-10-2014 Follow Up Appt Other Anali sutherland PA-C Work Phone: Start: 07-10-2014 End: 07-10-2014 PHU Daniel PA-C Work Phone: Start: 07-10-2014 End: 07-11-2014 Documentation of current medications Anali Daniel PA-C Work Phone: Start: 07-10-2014 End: 07-10-2014 Follow Up Appt 4 months Anali cleary PA-C Work Phone: Start: 07-10-2014 End: 07-10-2014 Follow Up Appt Other Anali sutherland PA-C Work Phone: Start: 07-03-2014 End: 07-04-2014 Documentation of current medications Nicholas Hurtado Work Phone: Start: 07-03-2014 End: 07-04-2014 Documentation of current medications Nicholas Hurtado Work Phone: Start: 04-11-2014 End: 04-12-2014 Documentation of current medications Octavio Lopez MD Start: 04-11-2014 End: 04-11-2014 Follow Up Appt 3 months Kaleigh Mendoza Start: 04-11-2014 End: 04-11-2014 MMKaleigh Lopez MD Start: 04-11-2014 End: 04-12-2014 Documentation of current medications Octavio Lopez MD Start: 04-11-2014 End: 04-11-2014 Follow Up Appt 3 months Kaleigh Mendoza Start: 04-11-2014 End: 04-11-2014 MMKaleigh Lopez MD Start: 08-02-2013 End: 08-02-2013 Follow Up Appt Other Anali sutherland PA-C Work Phone: Start: 08-02-2013 End: 08-02-2013 Follow Up Appt Other Anali sutherland PA-C Work Phone: Start: 07-23-2013 End: 07-04-2014 *Hepatic Function Panel Kaleigh Mendoza Start: 07-23-2013 End: 07-23-2013 Nurse, Teaching, Wound Check (no charge) Ozzie Vasquez MD Work Phone: Start: 07-23-2013 End: 07-04-2014 *Hepatic Function Panel Kaleigh Mendoza Start: 07-23-2013 End: 07-23-2013 Nurse, Teaching, Wound Check (no charge) Ozzie Vasquez MD Work Phone: Start: 07-20-2013 End: 07-22-2013 *BMP Octavio Lopez MD Start: 07-20-2013 End: 07-22-2013 CBC W Auto Differential panel - Blood Octavio Lopez MD Start: 07-20-2013 End: 07-04-2014 Chest x-ray Octavio Lopez MD Start: 07-20-2013 End: 07-20-2013 Ecg routine ecg w/least 12 lds w/i&r Octavio Lopez MD Start: 07-20-2013 End: 07-23-2013 Echocardiography Octavio Lopez MD Start: 07-20-2013 End: 07-22-2013 INR in Platelet poor plasma by Coagulation assay Octavio Lopez MD Start: 07-20-2013 End: 08-02-2013 Left Heart Cath Octavio Lopez MD Start: 07-20-2013 End: 07-22-2013 *BMP Octavio Lopez MD Start: 07-20-2013 End: 07-22-2013 CBC W Auto Differential panel - Blood Octavio Lopez MD Start: 07-20-2013 End: 07-04-2014 Chest x-ray Octavio Lopez MD Start: 07-20-2013 End: 07-22-2013 Coagulation factor induced.INR assay in platelet poor plasma Octavio Lopez MD Start: 07-20-2013 End: 07-23-2013 Echocardiography Octavio Lopez MD Start: 07-20-2013 End: 07-20-2013 Electrocardiogram, complete Octavio Hooks i, MD Start: 07-20-2013 End: 08-02-2013 Left Heart Cath Octavio Lopez MD Start: 03-16-2013 End: 03-16-2013 SUPERINTENDENT CIRCUS Anali Daniel PA-C Work Phone: Start: 03-16-2013 End: 03-16-2013 Follow Up Appt 1 year Anali joshua PA-C Work Phone: Start: 03-16-2013 End: 03-16-2013 Follow Up Appt Other Anali sutherland PA-C Work Phone: Start: 03-16-2013 End: 03-16-2013 SUPERINTENDENT CIRCUS ANDREA Wills-Shereen Work Phone: Start: 03-16-2013 End: 03-16-2013 Follow Up Appt 1 year Anali joshua PA-C Work Phone: Start: 03-16-2013 End: 03-16-2013 Follow Up Appt Other Anali sutherland PA-C Work Phone: Start: 12-29-2012 End: 12-29-2012 Follow Up Appt 6 months Kaleigh Mendoza Start: 12-29-2012 End: 12-29-2012 JEVON Lopez MD Start: 12-29-2012 End: 12-29-2012 Follow Up Appt 6 months Kaleigh Mendoza Start: 12-29-2012 End: 12-29-2012 JEVON Lopez MD Start: 05-17-2012 End: 08-02-2013 *Hepatic Function Panel Don Elliott MD Start: 05-17-2012 End: 08-02-2013 Lipid 1996 panel - Serum or Plasma Don Elliott MD Start: 05-17-2012 End: 08-02-2013 *Hepatic Function Panel Don Elliott MD Start: 05-17-2012 End: 08-02-2013 Lipid panel [AGGREGATE] Don Elliott MD Start: 02-21-2012 End: 02-21-2012 Follow Up Appt 1 year Don Elliott MD Start: 02-21-2012 End: 02-21-2012 Follow Up Appt 1 year Don Elliott MD Start: 02-15-2011 End: 02-15-2011 Follow Up Appt 1 year Don Elliott MD Start: 02-15-2011 End: 02-15-2011 Follow Up Appt 1 year Don Elliott MD Start: 11-11-2010 Placement of stent i n coronary artery Status post cardiac stent placement Nallely Adams Start: 06-19-2001 History of placement of stent for coronary artery disease History of coronary artery stent placement Anali MENDEZ Comment on above: SRI-UMR-Mtvz-Mid RCA w/ 4.0 x 18 mm Penta Stent 06/2001, 2 stents to RCA 02/08/24 at [facility] History of cataract extraction Hx of cataract surgery Amadou Liu MD Work Phone: SARS-CoV-2 & FLU Ant igen (Rapid) No Primary Care Physician Plan of Treatment Date Care Activity Detail Author Start: 11-06-2023 Covid-19 Vaccine ( season) Covid-19 Vaccine ( season) [facility] Start: 11-06-2023 Influenza vaccination Influenza Vaccine (#1) [facility] Start: 03-07-2023 Advance Directive Discussion Advance Directive Discussion [facility] Start: 01-23-2023 [facility] Start: 01-23-2023 [facility] Start: 08-26-2017 Diabetes Screening Diabetes Screening [facility] Start: 06-01-2017 End: 06-01-2017 Appointment [facility] Work Phone: Start: 11-25-2016 End: 11-25-2016 Echocardiography Echocardiogram (complete) [facility] Work Phone: Start: 11-25-2016 End: 11-25-2016 Follow Up Appt 6 months Follow Up Appt 6 months [facility] Work Phone: Start: 11-25-2016 End: 11-25-2016 MMM MMM [facility] Work Phone: Start: 11-25-2016 End: 12-20-2016 Nuclear stress test -Lexiscan Nuclear stress test -Lexiscan [facility] Work Phone: Start: 11-25-2016 End: 11-25-2016 Appointment Appointment [facility] Work Phone: Start: 11-25-2016 End: 11-25-2016 Echocardiography Echocardiogram (complete) [facility] Work Phone: Start: 11-25-2016 End: 11-25-2016 Follow Up Appt 6 months Follow Up Appt 6 months [facility] Work Phone: Start: 11-25-2016 End: 11-25-2016 MMM MMM [facility] Work Phone: Start: 11-25-2016 End: 11-25-2016 Nuclear stress test -Lexiscan Nuclear stress test -Lexiscan [facility] Work Phone: Start: 06-02-2016 End: 06-02-2016 SUPERINTENDENT CIRCUS SUPERINTENDENT CIRCUS [facility] Work Phone: Start: 06-02-2016 End: 06-02-2016 Follow Up Appt 6 months Follow Up Appt 6 months [facility] Work Phone: Start: 06-02-2016 End: 06-02-2016 SUPERINTENDENT CIRCUS SUPERINTENDENT CIRCUS [facility] Work Phone: Start: 06-02-2016 End: 06-02-2016 Follow Up Appt 6 months Follow Up Appt 6 months [facility] Work Phone: Start: 03-10-2016 End: 05-24-2016 Ambulatory BP Monitor 24 HR Ambulatory BP Monitor 24 HR [facility] Work Phone: Start: 03-10-2016 End: 03-10-2016 Follow Up Appt Other Follow Up Appt Other [facility] Work Phone: Start: 03-10-2016 End: 05-24-2016 Ambulatory BP Monitor 24 HR Ambulatory BP Monitor 24 HR [facility] Work Phone: Start: 03-10-2016 End: 03-10-2016 Follow Up Appt Other Follow Up Appt Other [facility] Work Phone: Start: 12-03-2015 End: 12-03-2015 Follow Up Appt 6 months Follow Up Appt 6 months [facility] Work Phone: Start: 12-03-2015 End: 12-03-2015 MMM MMM [facility] Work Phone: Start: 12-03-2015 End: 12-03-2015 Follow Up Appt 6 months Follow Up Appt 6 months [facility] Work Phone: Start: 12-03-2015 End: 12-03-2015 MMM MMM [facility] Work Phone: Start: 06-04-2015 End: 06-04-2015 Verious [facility] Work Phone: Start: 06-04-2015 End: 06-04-2015 Ecg routine ecg w/least 12 lds w/i&r EKG (In office) [facility] Work Phone: Start: 06-04-2015 End: 06-04-2015 Follow Up Appt 6 months Follow Up Appt 6 months [facility] Work Phone: Start: 06-04-2015 End: 06-04-2015 SUPERINTENDENT CIRCUS SUPERINTENDENT CIRCUS [facility] Work Phone: Start: 06-04-2015 End: 06-04-2015 Electrocardiogram, complete EKG (In office) [facility] Work Phone: Start: 06-04-2015 End: 06-04-2015 Follow Up Appt 6 months Follow Up Appt 6 months [facility] Work Phone: Start: 12-04-2014 End: 12-04-2014 Follow Up Appt 6 months Follow Up Appt 6 months [facility] Work Phone: Start: 12-04-2014 End: 12-04-2014 MMM MMM [facility] Work Phone: Start: 12-04-2014 End: 12-04-2014 Follow Up Appt 6 months Follow Up Appt 6 months [facility] Work Phone: Start: 12-04-2014 End: 12-04-2014 MMM MMM [facility] Work Phone: Start: 07-10-2014 End: 07-10-2014 SUPERINTENDENT CIRCUS SUPERINTENDENT CIRCUS [facility] Work Phone: Start: 07-10-2014 End: 07-10-2014 Follow Up Appt 4 months Follow Up Appt 4 months [facility] Work Phone: Start: 07-10-2014 End: 07-10-2014 Follow Up Appt Other Follow Up Appt Other [facility] Work Phone: Start: 07-10-2014 End: 07-10-2014 SUPERINTENDENT CIRCUS SUPERINTENDENT CIRCUS [facility] Work Phone: Start: 07-10-2014 End: 07-10-2014 Follow Up Appt 4 months Follow Up Appt 4 months [facility] Work Phone: Start: 07-10-2014 End: 07-10-2014 Follow Up Appt Other Follow Up Appt Other [facility] Work Phone: Start: 07-03-2014 End: 07-03-2014 Follow Up Appt 3 months Follow Up Appt 3 months [facility] Work Phone: Start: 07-03-2014 End: 07-03-2014 Pulmonary Function Test - complete Pulmonary Function Test - complete [facility] Work Phone: Start: 07-03-2014 End: 07-03-2014 Follow Up Appt 3 months Follow Up Appt 3 months [facility] Work Phone: Start: 07-03-2014 End: 07-03-2014 Pulmonary Function Test - complete Pulmonary Function Test - complete [facility] Work Phone: Start: 04-11-2014 End: 04-11-2014 Follow Up Appt 3 months Follow Up Appt 3 months [facility] Work Phone: Start: 04-11-2014 End: 04-11-2014 MMM MMM [facility] Work Phone: Start: 04-11-2014 End: 04-11-2014 Follow Up Appt 3 months Follow Up Appt 3 months [facility] Work Phone: Start: 04-11-2014 End: 04-11-2014 MMM MMM [facility] Work Phone: Start: 08-02-2013 End: 08-02-2013 Follow Up Appt Other Follow Up Appt Other [facility] Work Phone: Start: 08-02-2013 End: 08-02-2013 Follow Up Appt Other Follow Up Appt Other [facility] Work Phone: Start: 07-23-2013 End: 07-04-2014 *Hepatic Function Panel *Hepatic Function Panel [facility] Work Phone: Start: 07-23-2013 End: 07-04-2014 *Hepatic Function Panel *Hepatic Function Panel [facility] Work Phone: Start: 07-20-2013 End: 07-22-2013 *BMP *BMP [facility] Work Phone: Start: 07-20-2013 End: 07-22-2013 CBC W Auto Differential panel - Blood *CBC without Diff [facility] Work Phone: Start: 07-20-2013 End: 07-04-2014 Chest x-ray X-Ray, Chest, PA & Lateral [facility] Work Phone: Start: 07-20-2013 End: 07-20-2013 Ecg routine ecg w/least 12 lds w/i&r EKG (In office) [facility] Work Phone: Start: 07-20-2013 End: 07-20-2013 Echocardiography Echocardiogram (complete) [facility] Work Phone: Start: 07-20-2013 End: 07-22-2013 INR Coag RelTime (PPP) *PT/INR [facility] Work Phone: Start: 07-20-2013 End: 07-20-2013 Left Heart Cath Left Heart Cath [facility] Work Phone: Start: 07-20-2013 End: 07-22-2013 *BMP *BMP [facility] Work Phone: Start: 07-20-2013 End: 07-22-2013 CBC W Auto Differential panel - Blood *CBC without Diff [facility] Work Phone: Start: 07-20-2013 End: 07-04-2014 Chest x-ray X-Ray, Chest, PA & Lateral [facility] Work Phone: Start: 07-20-2013 End: 07-22-2013 Coagulation factor induced.INR assay in platelet poor plasma *PT/INR [facility] Work Phone: Start: 07-20-2013 End: 07-20-2013 Echocardiography Echocardiogram (complete) [facility] Work Phone: Start: 07-20-2013 End: 07-20-2013 Electrocardiogram, complete EKG (In office) [facility] Work Phone: Start: 07-20-2013 End: 07-20-2013 Left Heart Cath Left Heart Cath [facility] Work Phone: Start: 03-16-2013 End: 03-16-2013 SUPERINTENDENT CIRCUS SUPERINTENDENT CIRCUS [facility] Work Phone: Start: 03-16-2013 End: 03-16-2013 Follow Up Appt 1 year Follow Up Appt 1 year [facility] Work Phone: Start: 03-16-2013 End: 03-16-2013 Follow Up Appt Other Follow Up Appt Other [facility] Work Phone: Start: 03-16-2013 End: 03-16-2013 SUPERINTENDENT CIRCUS SUPERINTENDENT CIRCUS [facility] Work Phone: Start: 03-16-2013 End: 03-16-2013 Follow Up Appt 1 year Follow Up Appt 1 year [facility] Work Phone: Start: 03-16-2013 End: 03-16-2013 Follow Up Appt Other Follow Up Appt Other [facility] Work Phone: Start: 12-29-2012 End: 12-29-2012 Follow Up Appt 6 months Follow Up Appt 6 months [facility] Work Phone: Start: 12-29-2012 End: 12-29-2012 MMM MMM [facility] Work Phone: Start: 12-29-2012 End: 12-29-2012 Follow Up Appt 6 months Follow Up Appt 6 months [facility] Work Phone: Start: 12-29-2012 End: 12-29-2012 MMM MMM [facility] Work Phone: Start: 05-17-2012 End: 08-02-2013 *Hepatic Function Panel *Hepatic Function Panel [facility] Work Phone: Start: 05-17-2012 End: 08-02-2013 Lipid 1996 panel *Lipid Profile [facility] Work Phone: Start: 05-17-2012 End: 08-02-2013 *Hepatic Function Panel *Hepatic Function Panel [facility] Work Phone: Start: 05-17-2012 End: 08-02-2013 Lipid panel [AGGREGATE] *Lipid Profile [facility] Work Phone: Start: 02-21-2012 End: 02-21-2012 Follow Up Appt 1 year Follow Up Appt 1 year [facility] Work Phone: Start: 02-21-2012 End: 02-21-2012 Follow Up Appt 1 year Follow Up Appt 1 year [facility] Work Phone: Start: 02-15-2011 End: 02-15-2011 Follow Up Appt 1 year Follow Up Appt 1 year [facility] Work Phone: Start: 02-15-2011 End: 02-15-2011 Follow Up Appt 1 year Follow Up Appt 1 year [facility] Work Phone: Start: 2010 RSV Vaccine (1 - 1-dose 75+ series) RSV Vaccine (1 - 1-dose 75+ series) [facility] Start: 2000 Pneumococcal Vaccine: 65+ (1 of 1 - PCV) Pneumococcal Vaccine: 65+ (1 of 1 - PCV) [facility] Start: 2000 Screening for osteoporosis Bone Density Screening [facility] Start: 1985 Shingrix Vaccine (1 of 2) Shingrix Vaccine (1 of 2) [facility] Start: 1954 Urine microalbumin profile DTaP,Tdap,Td Vaccine (1 - Tdap) [facility] Start: 1953 Anxiety Screening Anxiety Screening [facility] Start: 1953 Depression Screening Depression Screening [facility] Lipid 1996 panel - S jerardo or Plasma [facility] Work Phone: Lipid 1996 panel - S jerardo or Plasma [facility] Patient Education [facility] Work Phone: Patient referral [facility] Work Phone: [facility] Payers Date Payer Category Payer Self-pay [id number] 2022 Formerly [facility] [id number] 2000 Medicare [id number] 2000 Medicare [id number] [facility] [id number] 1935 Unknown [id number] 2.16.8 [id number] Unknown [id number] 2.16.8 [id number] Unknown [id number] 2.16.8 40.1.435274.3.579.2.462 Unknown [id number] 2.16.8 40.1.790917.3.579.2.462 Unknown [id number] 2.16.8 40.1.686629.3.579.2.462 Unknown [id number] 2.16.8 40.1.493746.3.579.2.462 Unknown [id number] 2.16.8 40.1.652869.3.579.2.462 Unknown [id number] 2.16.8 40.1.514569.3.579.2.462 Unknown [id number] 2.16.8 40.1.663713.3.579.2.462 Unknown [id number] 2.16.8 40.1.624777.3.579.2.462 Unknown [id number] 2.16.8 40.1.274065.3.579.2.462 Unknown [id number] 2.16.8 40.1.368262.3.579.2.462 Unknown [id number] 2.16.8 40.1.883721.3.579.2.462 Unknown [id number] 2.16.8 40.1.010773.3.579.2.462 Unknown [id number] 2.16.8 40.1.443771.3.579.2.462 Unknown [id number] 2.16.8 40.1.190793.3.579.2.462 Unknown [id number] 2.16.8 40.1.239676.3.579.2.462 Unknown [id number] 2.16.8 40.1.078919.3.579.2.462 Unknown [id number] 2.16.8 40.1.558459.3.579.2.462 Unknown [id number] 2.16.8 40.1.062562.3.579.2.462 Unknown [id number] 2.16.8 40.1.140674.3.579.2.462 Unknown [id number] 2.16.8 40.1.862558.3.579.2.462 Social History Date Type Detail Facility Start: 01-12-2021 End: 01-23-2023 Tobacco smoking status WAIS Unknown if ever smoked [facility] Start: 02-28-2020 With Family [facility] Start: 12-24-2019 Non-smoker [facility] Start: 1935 Sex Assigned At Female W [facility] Start: 1935 Sex assigned at Not on file [facility] Gender identity Not on file [facility] Start: 08-28-2014 End: 06-05-2024 Tobacco smoking status WAIS Never smoked tobacco [facility] Start: 08-28-2014 Tobacco use and exposure Smokeless tobacco non-user [facility] Start: 08-28-2014 Alcoholic beverage intake Current non-drinker of alcohol (finding) [facility] Start: 06-11-2024 End: 06-11-2024 Sex Female (finding) [facility] Goals Date Patient Goal Desired Activity /State Personal health goal Functional Status Date Assessment Result Facility 01-23-2024 Functional Status Room check performed [facility] Mental Status Date Assessment Result Facility 01-23-[facility]24 [facility] Cognitive function Level Of Cons ciousness Awake;Alert;Appropriate;Follow s Commands [facility] Work Phone: Clinical Notes 06-19-2001 to 06-05-2024 Note Date & Type Note Facility 06-05-2024 Evaluation note Diagnosis Onset Date Resolution Deep vein thrombosis acute June 05, 2024 11:25am Essential (primary) hypertension chronic June 05, 2024 11:25am History of coronary artery stent placement June 19, 2001 chronic June 05, 2024 11:25am Hyperlipidemia chronic June 05, 2024 11:25am S/P TAVR (transcatheter aortic valve replacement) February 09, 2024 chronic June 05, 2024 11:25am Deep vein thrombosis acute June 21, 2024 8:21am Essential (primary) hypertension chronic June 21, 2024 8:21am History of coronary artery stent placement June 19, 2001 chronic June 21, 2024 8:21am Hyperlipidemia chronic June 8:21am S/P TAVR (transcatheter aortic valve replacement) February 09, 2024 chronic June 21, 2024 8:21am [facility] Work Phone: 1(826) 397-833112-18-2024 Evaluation note* Diagnosis Onset Date Resolution Status Admit Date Deep vein thrombosis acute Dece mb2023 10:28am Essential (primary) hypertension chronic February 21, 2 024 10:28am History of coronary artery stent placement June 19, 2001 chronic February 22, 2024 10:28am Hyperlipidemia chronic February 042023 10:28am Nonrheumatic aortic (valve) stenosis chronic February 21, 2 024 10:28am S/P TAVR (transcatheter aortic valve replacement) February 09, 2024 chronic Dec emb2023 10:28am Deep vein thrombosis acute Apr2024 11:25am Essential (primary) hypertension chronic June 05, 2024 11:25am History of coronary artery stent placement June 19, 2001 chronic June 05, 2024 11:25am Hyperlipidemia chronic June 05, 2024 11:25am S/P TAVR (transcatheter aortic valve replacement) February 09, 2024 chronic Jun 11:25am [facility] Work Phone: 1(153) 256-883511-18-2024 Hospital Discharge instructions Patient Education 01/23/2024 05:46:33 High Blood Pressure, Established, Out of Control Uncontrolled High Blood Pressure (Established) Your blood pressure was unusually high today. This can occur if you ve missed doses of your blood pressure medicine. Or it can happen if you are taking other medicines. These include some asthma inhalers, decongestants, diet pills, and street drugs like cocaine and amphetamine. Other causes include: Weight gain More salt in your diet Smoking Caffeine Your blood pressure can also rise if you are emotionally upset or in intense pain. It may go back to normal after a period of rest. Blood pressure measurements are given as 2 numbers. Systolic blood pressure is the upper number. This is the pressure when the heart contracts. Diastolic blood pressure is the lower number. This is the pressure when the heart relaxes between beats. You will see your blood pressure readings written together. For example, a person with a systolic pressure of 118 and a diastolic pressure of 78 will have 118/78 written in the medical record. To be high blood pressure, the numbers must be higher when tested over a period of time. Blood pressure is categorized as normal, elevated, or stage 1 or stage 2 high blood pressure: Normal blood pressure is systolic of less than 120 and diastolic of less than 80 (120/80) Elevated blood pressure is systolic of 120 to 129 and diastolic less than 80 Stage 1 high blood pressure is systolic is 130 to 139 or diastolic between 80 to 89 Stage 2 high blood pressure is when systolic is 140 or higher or the diastolic is 90 or higher Uncontrolled high blood pressure can cause serious health problems. It raises your risk for heart attack, stroke, and heart failure. In general, if you have high blood pressure, keeping your blood pressure below 130/80 mmHg may help prevent these problems. Your healthcare provider may prescribe medicine to help control blood pressure if lifestyle changes are not enough. Home care It s important to take steps to lower your blood pressure. If you are taking blood pressure medicine, the guidelines below may help you need less or no medicines in the future. Start a weight-loss program if you are overweight. Cut back on the amount of salt in your diet: oAvoid high-salt foods like olives, pickles, smoked meats, and salted potato chips. oDon t add salt to your food at the table. oUse only small amounts of salt when cooking. Start an exercise program. Talk with your healthcare provider about what exercise program is best for you. It doesn t have to be difficult. Even brisk walking for 20 minutes 3 times a week is a good form of exercise. Avoid medicines that stimulates the heart. This includes many aued-jjn-jpgkqfp cold and sinus decongestant pills and sprays, as well as diet pills. Check the warnings about high blood pressure on thelabel. Before purchasing any tskt-djy-xetqzge medicines or supplements, always ask the pharmacist about the product's potential interaction with your high blood pressure and your medicines. Stimulants such as amphetamine or cocaine could be lethal for someone with high blood pressure. Never take these. Limit how much caffeine you drink. Or switch to noncaffeinated beverages. Stop smoking. If you are a long-time smoker, this can be hard. Enroll in a stop- smoking program to make it more likely that you will succeed. Talk with your provider about ways to quit. Learn how to handle stress better. This is an important part of any program to lower blood pressure. Learn ways to relax. These include meditation, yoga, and biofeedback. If medicines were prescribed, take them exactly as directed. Missing doses may cause your blood pressure to get out of control. If you miss a dose or doses of your medicines, check with your healthcare provider or pharmacist about what to do. Consider buying an automatic blood pressure machine. Your provider may recommend a certain type. You can get one of these at most pharmacies. Measure your blood pressure twice a day, in the morning, and in the late afternoon. Keep a written record of your home blood pressure readings and take the record to your medical appointments. Here are some additional guidelines on home blood pressure monitoring from the [employer] [employer]. Don't smoke or drink coffee for 30 minutes Go to the bathroom before the test. Relax for 5 minutes before taking the measurement. Sit correctly. Be sure your back is supported. Don't sit on a couch or soft chair. Uncross your feet and place them flat on the floor. Place your arm on a solid, flat surface like a table with the upper arm at heart level. Make certain the middle of the cuff is directly above the bend of the elbow.Check the monitor's instruction manual for an illustration. Take multiple readings. When you measure, take 2 or 3 readings one minute apart and record all of the results. Take your blood pressure at the same time every day, or as your healthcare provider recommends. Record the date, time, and blood pressure reading. Take the record with you to your next appointment. If your blood pressure monitor has a built-in memory, simply take the monitor with you to your next appointment. Call your provider if you have several high readings. Don't be frightened by a single high reading,but if you get several high readings, check in with your healthcare provider. Note: When blood pressure reaches a systolic (top number) of 180 or higher or a diastolic (bottom number) of 110 or higher, emergency medical treatment is required. Call your healthcare provider immediately. Follow-up care Regular visits to your own healthcare provider for blood pressure and medicine checks are an important part of your care. Make a follow-up appointment as directed. Bring the record of your home bloodpressure readings to the appointment. When to seek medical advice Call your healthcare provider right away if any of these occur: Blood pressure reaches a systolic (top number) of 180 or higher or diastolic (bottom number) of 110or higher, emergency medical treatment is required. Chest, arm, shoulder, neck, or upper back pain Shortness of breath Severe headache Throbbing or rushing sound in the ears Nosebleed Extreme drowsiness, confusion, or fainting Dizziness or dizziness with spinning sensation (vertigo) Weakness in an arm or leg or on one side of the face Trouble speaking or seeing [id number] [employer] [place] [address]. All rights reserved. This information is not intended as a substitute for professional medical care. Always follow yourhealthcare professional's instructions. Follow Up Care 01/23/2024 02:30:07 With:LIBORIO SAENZ MD Address: [address] [facility] [address] [place] [address]- [phone] When:2-4 days With:AMADOU LIU MD Address: [address] [place] [phone] When:2-4 days [facility] 11-18-2024 Emergency department Discharge summary Discharge Instructions Thank you for allowing [facility] to assist you with your healthcare needs. The following is importantdischarge information regarding your hospital visit. What to Do Next Instructions from Your Care Team No qualifying data available. Post Acute Orders No qualifying data available. You Need to Schedule the Following Appointments Follow Up with LIBORIO SAENZ MD When:Within 2-4 days Where:[address] [facility] [id number] [place] [address] [phone] Follow Up with AMADOU LIU MD When:Within 2-4 days Where:[address] [place] [phone] Allergies erythromycin Medications Please ask your primary doctor or pharmacist before taking any other medication not listed, including over the counter drugs, herbal medications, vitamins and or supplements as they may interact withyour home medications. Please take this list to your next doctor s visit. Bring all medications you take, including over the counter medications, herbals and other supplements with you to your doctor s visit. Patients and families are reminded to discard old lists and to update any records with all medication providers or retail pharmacies. Education Materials Uncontrolled High Blood Pressure (Established) Your blood pressure was unusually high today. This can occur if you ve missed doses of your blood pressure medicine. Or it can happen if you are taking other medicines. These include some asthma inhalers, decongestants, diet pills, and street drugs like cocaine and amphetamine. Other causes include: Weight gain More salt in your diet Smoking Caffeine Your blood pressure can also rise if you are emotionally upset or in intense pain. It may go back to normal after a period of rest. Blood pressure measurements are given as 2 numbers. Systolic blood pressure is the upper number. This is the pressure when the heart contracts. Diastolic blood pressure is the lower number. This is the pressure when the heart relaxes between beats. You will see your blood pressure readings written together. For example, a person with a systolic pressure of 118 and a diastolic pressure of 78 will have 118/78 written in the medical record. To be high blood pressure, the numbers must be higher when tested over a period of time. Blood pressure is categorized as normal, elevated, or stage 1 or stage 2 high blood pressure: Normal blood pressure is systolic of less than 120 and diastolic of less than 80 (120/80) Elevated blood pressure is systolic of 120 to 129 and diastolic less than 80 Stage 1 high blood pressure is systolic is 130 to 139 or diastolic between 80 to 89 Stage 2 high blood pressure is when systolic is 140 or higher or the diastolic is 90 or higher Uncontrolled high blood pressure can cause serious health problems. It raises your risk for heart attack, stroke, and heart failure. In general, if you have high blood pressure, keeping your blood pressure below 130/80 mmHg may help prevent these problems. Your healthcare provider may prescribe medicine to help control blood pressure if lifestyle changes are not enough. Home care It s important to take steps to lower your blood pressure. If you are taking blood pressure medicine, the guidelines below may help you need less or no medicines in the future. Start a weight-loss program if you are overweight. Cut back on the amount of salt in your diet: oAvoid high-salt foods like olives, pickles, smoked meats, and salted potato chips. oDon t add salt to your food at the table. oUse only small amounts of salt when cooking. Start an exercise program. Talk with your healthcare provider about what exercise program is best for you. It doesn t have to be difficult. Even brisk walking for 20 minutes 3 times a week is a good form of exercise. Avoid medicines that stimulates the heart. This includes many pabj-mda-dghnlqc cold and sinus decongestant pills and sprays, as well as diet pills. Check the warnings about high blood pressure on thelabel. Before purchasing any foxw-isk-oxbgnge medicines or supplements, always ask the pharmacist about the product's potential interaction with your high blood pressure and your medicines. Stimulants such as amphetamine or cocaine could be lethal for someone with high blood pressure. Never take these. Limit how much caffeine you drink. Or switch to noncaffeinated beverages. Stop smoking. If you are a long-time smoker, this can be hard. Enroll in a stop- smoking program to make it more likely that you will succeed. Talk with your provider about ways to quit. Learn how to handle stress better. This is an important part of any program to lower blood pressure. Learn ways to relax. These include meditation, yoga, and biofeedback. If medicines were prescribed, take them exactly as directed. Missing doses may cause your blood pressure to get out of control. If you miss a dose or doses of your medicines, check with your healthcare provider or pharmacist about what to do. Consider buying an automatic blood pressure machine. Your provider may recommend a certain type. You can get one of these at most pharmacies. Measure your blood pressure twice a day, in the morning, and in the late afternoon. Keep a written record of your home blood pressure readings and take the record to your medical appointments. Here are some additional guidelines on home blood pressure monitoring from the [place] [employer]. Don't smoke or drink coffee for 30 minutes Go to the bathroom before the test. Relax for 5 minutes before taking the measurement. Sit correctly. Be sure your back is supported. Don't sit on a couch or soft chair. Uncross your feet and place them flat on the floor. Place your arm on a solid, flat surface like a table with the upper arm at heart level. Make certain the middle of the cuff is directly above the bend of the elbow.Check the monitor's instruction manual for an illustration. Take multiple readings. When you measure, take 2 or 3 readings one minute apart and record all of the results. Take your blood pressure at the same time every day, or as your healthcare provider recommends. Record the date, time, and blood pressure reading. Take the record with you to your next appointment. If your blood pressure monitor has a built-in memory, simply take the monitor with you to your next appointment. Call your provider if you have several high readings. Don't be frightened by a single high reading,but if you get several high readings, check in with your healthcare provider. Note: When blood pressure reaches a systolic (top number) of 180 or higher or a diastolic (bottom number) of 110 or higher, emergency medical treatment is required. Call your healthcare provider immediately. Follow-up care Regular visits to your own healthcare provider for blood pressure and medicine checks are an important part of your care. Make a follow-up appointment as directed. Bring the record of your home bloodpressure readings to the appointment. When to seek medical advice Call your healthcare provider right away if any of these occur: Blood pressure reaches a systolic (top number) of 180 or higher or diastolic (bottom number) of 110or higher, emergency medical treatment is required. Chest, arm, shoulder, neck, or upper back pain Shortness of breath Severe headache Throbbing or rushing sound in the ears Nosebleed Extreme drowsiness, confusion, or fainting Dizziness or dizziness with spinning sensation (vertigo) Weakness in an arm or leg or on one side of the face Trouble speaking or seeing [phone] [employer]. [address] [place] [address], [place] [address]. All rights reserved. This information is not intended as a substitute for professional medical care. Always follow yourhealthcare professional's instructions. Additional Information VACCINATE! IT SAVES LIVES! Members of the community who have not yet received the COVID-19 vaccine and would like to receive it can visit one of [facility] vaccine clinics. There are many vaccine clinic locations within the [facility]. For locations and available times, please visit [email or web address] It is important to note that some COVID mobile vaccine clinics are held outdoors and may be canceled in rainy or stormy conditions. To learn more about pediatric vaccinations (ages 5-11), we invite you to visit the [facility] webpage. [email or web address]/[email or web address] learn more about the COVID-19 vaccine, we invite you to visit the CDC website for a list of frequently asked questions. https://www.cdc.gov/coronavirus/2019-ncov/vaccines/faq.html [employer] Patient Portal Access Instructions: Stay connected with your healthcare team and access your personal medical information anytime with the [employer] Patient Portal. If you would like a full copy of your medical records please contact the [facility] Medical Records Department Tuesday through Tuesday between 8a.m. and 4:30p.m. Please follow the directions below to access the portal: 1.Access the email account you provided upon registration to the hospital.2.Look for an invitation email from [facility].3.Open the email and access the invitation link: Accept Invitation to [facility]4.Fill in the required loaiza to create your account. Sign into [email or web address].[email or web address] io with your username and password that you created in the above steps to stay up to date. You can then view a summary of results, a summary of your visits, and the ability to download your summaries to your computer or send the information securely to a physician. Remember that your healthcare information is confidential, so carefully consider who you will allow to register on the [employer] Patient Portal for access to your information. You can also access the [employer] Patient Portal on the [employer] alfreda. Simply click on Health Records under [email or web address] and then click on the [employer] logo. HOW TO SAFELY DISPOSE OF PRESCRIPTION MEDICATIONS Please use one of the following methods to safely dispose of your unused medications. 1.Use a drug disposal kit: the drug disposal pouch allows you to safely discard your old and unuseddrugs. Ask your nurse to give you one when you are discharged.2.Visit a local take-back location: Many local pharmacies and police departments have programs that collect old and unwanted prescriptiondrugs. Call your local pharmacy or go to http://[employer].Ikaria/5B5Ha0k to find one close to you.3.Make use of household items: Use cat litter or old coffee grounds to dispose medications if other options arenot available. Mix your drugs with these household products, seal them in an airtight container andthrow it into the garbage. Call [facility]: [phone] to be sure your drugs can be disposed of in this way. Some medicines may require a different approach.4.Never flush your medications down the toilet. IF YOU HAVE BEEN PRESCRIBED AN OPIOIDS FOR PAIN If you have been prescribed an opioid (such as hydrocodone, oxycodone or morphine), it is critical to understand the possible side effects and risks of opioid pain medications. Even when taken as directed, opioids can have several side effects including: Tolerance, meaning you might need to take more of a medication for the same pain relief. Nausea, vomiting and/or constipation. Sleepiness, dizziness, dry mouth, confusion, depression or itching. Physical dependence, meaning you have withdrawal symptoms when a medication is stopped ? this can develop within a few days. KNOW YOUR RESPONSIBILITIES It is important to know exactly how much and how often to take the opioid pain medications you are prescribed. Never take opioids in higher amounts or more often than prescribed. Do not combine opioids with alcohol or other drugs that cause drowsiness, such as benzodiazepines, also known as benzos,including diazepam and alprazolam, muscle relaxants or sleep aids. Never sell or share prescriptionopioids. This is illegal. Store opioids in a secure place and out of reach of others (including children, family, friends and visitors). The last page(s) of this document has been signed and retained as a CHART COPY Signatures Patient Education Materials High Blood Pressure, Established, Out of Control Medication Leaflets My discharge plan and instructions have been reviewed and explained to me and IELIN CLARA J understand my current condition and have read and understand these discharge instructions. I have received a written copy of the plan/instructions. If I have questions, I am aware that I should contact my doctor. 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 Automated exposure control, iterative reconstruction, and/or weight based adjustment of the mA/kV was utilized to reduce the radiation dose to as low as reasonably achievable. COMPARISON: None. HISTORY: ORDERING SYSTEM PROVIDED HISTORY: Reason for Exam: dizziness FINDINGS: BRAIN/VENTRICLES: There is no acute intracranial hemorrhage, mass effect or midline shift. No abnormal extra-axial fluid collection. The ferro-white differentiation is maintained without evidence of an acute infarct. There is no evidence of hydrocephalus. Scattered parenchymal hypodensities in the cerebral white matter are nonspecific but statistically most consistent with moderate chronic microvascular angiopathy. There is proportionate enlargement of the ventricular system and cortical sulci compatible with mild parenchymal volume loss. ORBITS: The visualized portion of the orbits demonstrate no acute abnormality. SINUSES: The visualized paranasal sinuses and mastoid air cells demonstrate no acute abnormality. SOFT TISSUES/SKULL: No acute abnormality of the visualized skull or soft tissues. IMPRESSION: No acute intracranial abnormality. Interpreted by: Jaycob Wooten MD Preliminary Report By: Jaycob Wooten MD Electronically signed By Jaycob Wooten MD Dictated Date: 01/23/2024 4:04:21 AM Prelim Date: 01/23/2024 4:06:01 AM Sign Date: 01/23/2024 4:06:01 AM Ordering Provider: KASSANDRA MITTALGerman [id number] Note ORIGINAL EXAMINATION: ONE XRAY VIEW OF THE CHEST 01/23/2024 3:29 am COMPARISON: None. HISTORY: ORDERING SYSTEM PROVIDED HISTORY: Reason for Exam: chest pain FINDINGS: The heart size is normal. There is no lung infiltrate or edema. No pneumothorax or pleural fluid is present. There is no acute skeletal abnormality. IMPRESSION: No acute cardiopulmonary process. Interpreted by: Jaycob Wooten MD Preliminary Report By: Jaycob Wooten MD Electronically signed By Jaycob Wooten MD Dictated Date: 01/23/2024 3:32:36 AM Prelim Date: 01/23/2024 3:33:33 AM Sign Date: 01/23/2024 3:33:33 AM Ordering Provider: LYSSA [facility]11-18-2024 NoteSINUS RHYTHM ABNORMAL R-WAVE PROGRESSION, EARLY TRANSITION PROBABLE LEFT VENTRICULAR HYPERTROPHY Electronic Signature: MARIANNE PINEDA DO 01/23/2024 05:54:09[facility] 11-01-2024 NoteHNO ID: [id number] Author: RC RAMIREZ APRN.ONCOLOGY ADMIN Service: ? Author Type: Nurse Practitioner Type: Progress Notes Filed: 01/06/2024 10:42 Note Text: TAVR STRUCTURAL REVIEW FORM Orders placed by: Erik Lucas APRN ([facility]) Records Reviewed: 01/06/2024 Appt request sent: 01/06/2024 Records in [facility] have been reviewed. Severe . Request has been sent to the hospital superintendent who will arrange an appointment schedule. Please note it can take up to 4 weeks for scheduling to take place. Once completed, a TAVR packet and schedule will be mailed to patient's home address. PLEASE NOTE: Appointment schedule being sent to the patient will be for CONSULTATION AND TESTING. All studies will be reviewed by the multidisciplinary valve team members and the TAVR procedure will be schedule at a later date. Scheduling Notes: HISTORY Gina Worthington is an 88 year old female with pmhx of: Valvular heart disease CAD S.p PCI proc-mid RCA in 2001 HTN HLD DVT Records review Echo 12/21/2023 ([facility]): GFR: >60 Contrast Allergy: No Anticoagulation plan: Eliquis - instructed her daughter to have her mom hold her eliquis 48 hour before the cath. DX: aortic valve disorder Referring physician: Erik Lucas APRN DAY ONE: Dr. Reyna/Dr. Bosch/Dr. Chester/Dr. Brown/Dr. Alexis/Dr. Benedict/ Dr. Cruz/ Dr. Franco/Dr. Mcnulty (If a Tuesday is needed, can schedule with Dr. Becker or Dr. Vasquez). The following testing on same day as appointment with physician: EKG/CXR/Labs (CMP; CBC with diff, PT/INR, Pro-BNP, High Sensitivity Troponin, Lipoprotein(a)-LPA) Echocardiogram CTA aorta Carotid Ultrasound DAY TWO: Left Heart catheterization: any diagnostic physician. IF CREAT is 2.0 or greater, then it should be by an Electrodynamicist ONLY (Dr. Arias, Dr. Franco, Dr. Mcnulty, Dr. Cruz, Dr. Benedict, Dr. Linn, Dr. Peoples,Dr. Loredo, Dr. Lewis, Dr. Lozoya, Dr. Figueroa and Dr. Graham) DAY THREE: Nuclear Medicine- Amyloid SPECT Structural Valve Clinic appointment PFT?s (spirometry, diffusing capacity) Patient is also to be seen by Dr. Richardson/Dr. Limon/Dr. Stephen/Dr. Read/ Dr. Lovell/Dr. Portillo/Dr. Wilkins/Dr. Magana/ Dr. Olivia/ Dr. Orr/Dr. Douglas. Rc Ramirez APRN.[facility]11-01-2024 History of Present illness Narrative* Rc Ramirez APRN.[facility] - 01/06/2024 10:14 AM EDT Images from the original note were not included. TAVR STRUCTURAL REVIEW FORM Orders placed by: Erik Lucas APRN ([facility]) Records Reviewed: 01/06/2024 Appt request sent: 01/06/2024 Records in [facility] have been reviewed. Severe . Request has been sent to the hospital superintendent who will arrange an appointment schedule. Please note it can take up to 4 weeks for scheduling to take place. Once completed, a TAVR packet and schedule will be mailed to patient's home address. PLEASE NOTE: Appointment schedule being sent to the patient will be for CONSULTATION AND TESTING. All studies will be reviewed by the multidisciplinary valve team members and the TAVR procedure will be schedule at a later date. Scheduling Notes: HISTORY Gina Worthington is an 88 year old female with pmhx of: Valvular heart disease CAD S.p PCI proc-mid RCA in 2001 HTN HLD DVT Records review Echo 12/21/2023 ([facility]): GFR: >60 Contrast Allergy: No Anticoagulation plan: Eliquis - instructed her daughter to have her mom hold her eliquis 48 hour before the cath. DX: aortic valve disorder Referring physician: Erik Lucas APRN DAY ONE: Dr. Reyna/Dr. Boshc/Dr. Chester/Dr. Brown/Dr. Alexis/Dr. Benedict/ Dr. Cruz/ Dr. Franco/Dr. Mcnulty (If a Tuesday is needed, can schedule with Dr. Becker or Dr. Vasquez). The following testing on same day as appointment with physician: EKG/CXR/Labs (CMP; CBC with diff, PT/INR, Pro-BNP, High Sensitivity Troponin, Lipoprotein(a)-LPA) Echocardiogram CTA aorta Carotid Ultrasound DAY TWO: Left Heart catheterization: any diagnostic physician. IF CREAT is 2.0 or greater, then it should be by an Electrodynamicist ONLY (Dr. Arias, , Dr. Mcnulty, Dr. Cruz, Dr. Benedict, Dr. Linn, Dr. Peoples,Dr. Loredo, Dr. Lewis, Dr. Lozoya, Dr. Figueroa and Dr. Graham) DAY THREE: Nuclear Medicine- Amyloid SPECT Structural Valve Clinic appointment PFT s (spirometry, diffusing capacity) Patient is also to be seen by Dr. Richardson/Dr. Limon/Dr. Stephen/Dr. Read/ Dr. Lovell/Dr. Portillo/Dr. Wilkins/Dr. Magana/ Dr. Olivia/ Dr. Orr/Dr. Douglas. Rc Ramirez APRN.CNP [facility] Telephone encounter Note * Telephone Encounter - JarettDanelle - 12/26/2023 4:59 PM EDT Images from the original note were not included. Received referral to Dr. Franco for TAVR, uploaded under scanned documents Echo 12/21/2023 (No Images) CXR 01/23/2023 (No Images) Faxed request for images: [facility]10-21-2024 Miscellaneous Notes* Telephone Encounter - JarettDanelle - 12/26/2023 4:59 PM EDT Images from the original note were not included. Received referral to Dr. Franco for TAVR, uploaded under scanned documents Echo 12/21/2023 (No Images) CXR 01/23/2023 (No Images) Faxed request for images: [facility]10-18-2024 Telephone encounter Note * Telephone Encounter - Jayden Arenas - 12/23/2023 8:33 AM EDT RECEIVED CALL FROM: Family member - Name: Maria Victoria PATIENT INFORMATION: Name: Gina Worthington : 1935 (home) Email: [email or web address] Referring Provider: No referring provider defined for this encounter. Phone: N/A Fax: Requested Surgeon: First Available/Unspecified Reason for appointment/diagnosis : Aortic stenosis Jayden Arenas December 23, 2023 8:34 AM [facility]10-18-2024 Miscellaneous Notes* Telephone Encounter - Jayden Arenas - 12/23/2023 8:33 AM EDT RECEIVED CALL FROM: Family member - Name: Maria Victoria PATIENT INFORMATION: Name: Gina Worthington : 1935 (home) Email: [email or web address] Referring Provider: No referring provider defined for this encounter. Phone: N/A Fax: Requested Surgeon: First Available/Unspecified Reason for appointment/diagnosis : Aortic stenosis Jayden Arenas December 23, 2023 8:34 AM documented in this encounterC[facility]04-15-2002 Evaluation note* Diagnosis Onset Date Resolution Status Essential (primary) hypertension chronic History of coronary artery stent placement June 19, 2001 chronic Hyperlipidemia chronic Nonrheumatic aortic (valve) stenosis chronic [facility] Work Phone: Discharge summary Author Mario Cruz [facility] January 23, 2023 10:47am Note Date/Time January 23, 2023 9:36am [facility] Medical Records Department [address] [place] [id number] Emergency Department Summary 01/23/23 MR#: [id number] Acct: [id number] Name: GINA WORTHINGTON Rep #:[id number] : 1935 87 From: Mario Cruz DO PCP: Care Physician,No Primary Status :REG ER Location: ED HPI History of Present Illness Chief Complaint: Hypertension Narrative Narrative: 87-year-old female with history of hypertension coming with elevated blood pressures. She states her blood pressure was in the 200s over 100 at home. Shestates he was having palpitations at home. Patient is on carvedilol 3.125 mg p.o. twice daily. Patient has not missed any doses. Last night she noted her blood pressure was high. This morning she checked it again and since it was high she took half of the leftover Norvasc she does not know what doses. She also took a lisinopril 10 mg. On arrival her blood pressure is 110/93. Patientdenies headache. Denies chest pain. Denies shortness of breath. States currently feels well. States she has not taken lisinopril in over a year and she occasionally takes the Norvasc when her pressures are high. But she also notes that her pressures have dropped sometimes so she tries to keep away from these. PFSH PFSH Medical History Atherosclerotic heart disease of grindstone coronary artery without angina pectoris Deep vein thrombosis Essential (primary) hypertension Hyperlipidemia Nonrheumatic aortic (valve) stenosis Obesity Home Medications cholecalciferol (vitamin D3) 125 mcg (5,000 unit) capsule 5,000 unit PO DAILY SUPPLEMENT 12/12/17 [History Last Taken 11/20/19] coenzyme Q10 200 mg capsule 200 mg PO DAILY SUPPLEMENT 12/12/17 [History Last Taken 11/20/19] nitroglycerin 0.4 mg sublingual tablet 0.4 mg sublingual Q5M PRN ANGINA #25 tabs06/19/20 [Rx Last Taken Unknown] apixaban 2.5 mg tablet (Eliquis) 2.5 mg PO BID 07/09/21 [History Last Taken Unknown] desoximetasone 0.25 % topical cream 1 applic topical DAILY PRN Fill as courtesy until pt obtains new Primary #15 grams 09/16/21 [Rx Last Taken Unknown] carvedilol 3.125 mg tablet 3.125 mg PO BID #180 tabs 06/02/22 [Rx Last Taken Unknown] ezetimibe 10 mg tablet (Zetia) 10 mg PO DAILY #30 tabs 12/06/22 [Rx Last Taken Unknown] famotidine 10 mg tablet (Pepcid AC) 10 mg PO ONCE PRN 12/06/22 [History Last Taken Unknown] amlodipine 5 mg tablet 5 mg PO DAILY #30 tabs 01/23/23 [Rx Last Taken Unknown] Allergy/AdvReac Type Severity Reaction Status Date / Time azithromycin Allergy Severe Other Verified 12/06/22 09:05 pravastatin AdvReac Severe mylagias Verified 12/06/22 09:05 Family History Other CVA (cerebral vascular accident) Surgical History History of coronary artery stent placement (06/19/01) History of left heart catheterization (07/26/13) Social History household members: none Smoking Status: Never smoker alcohol intake: current alcohol intake frequency: other substance use type: does not use EXAM Physical Exam Const Vital Signs: 01/23/23 08:46 01/23/23 09:18 01/23/23 09:18 Temperature 96.5 F L Temperature Source Temporal Pulse Rate 79 69 Respiratory Rate 16 16 Respiratory Pattern Blood Pressure 222/105 H 201/92 H Blood Pressure Mean 144 128 Pulse Ox 98 96 96 Oxygen Delivery Method Room Air Room Air Room Air 01/23/23 09:19 Temperature Temperature Source Pulse Rate Respiratory Rate Respiratory Pattern Normal Blood Pressure Blood Pressure Mean Pulse Ox Oxygen Delivery Method General Appearance ED: Negative for pallor HEENT Reports normocephalic, head/scalp atraumatic and moist mucous membranes Eyes PERRL and EOMs intact bilaterally Neck no lymphadenopathy and supple Resp normal respiratory effort and clear to auscultation bilaterally Auscultation: Negative for rales, rhonchi or wheezes Cardio regular rate and regular rhythm GI Palpation: soft Narrative: Deferred Extremity normal to inspection General Extremety ED: Negative for edema or tenderness General Extremity: Negative for edema Neuro oriented x3 and CN's II-XII intact bilaterally Sensorium / Orientation: alert Motor Exam: strength 5/5 throughout Psych mental status grossly normal Attitude: No agitated Skin no rashes or lesions noted and no wounds General Skin Exam: Negative for jaundice or pallor MDM MDM MDM Narrative Medical decision making narrative: Patient presenting with elevated blood pressure. She denies headache. She had some palpitations earlier. Differential includes ACS, hypertensive emergency, dehydration, electrolyte normalities, A-fib. CBC will be obtained to assess white blood cell count, hemoglobin, platelets. BMP to assess renal function, electrolytes. High-sensitivity troponin and EKG will be obtained to assess for ischemia/dysrhythmia. Chest x-ray to rule out pneumonia or other acute abnormalities. Patient's blood pressures come down to 179/93 so I will continueto monitor. She denies any other red flag signs or symptoms. BC shows no leukocytosis. Hemoglobin stable at 12.5. Renal function electrolytes within normal limits. High- sensitivity troponin is 11. EKG on my interpretation showsa normal sinus rhythm with a ventricular rate of 77 bpm without sign of ischemicchange or ectopy. Chest x-ray my interpretation is no acute process. Since herblood pressure is currently stable discussed the case with Dr. Garcia who recommended starting amlodipine 5 mg and keeping a blood pressure diary. This was all discussed with the patient and she is amenable to this. She is discharged stable condition. Impression: 1. Hypertension 2. Palpitations Lab Data Attestation: I reviewed the patient's lab results. Labs: Laboratory Results - last 24 hr 01/23/23 09:15 WBC 5.3 RBC 4.02 L Hgb 12.5 Hct 39.0 MCV 97.0 MCH 31.1 MCHC 32.1 RDW Std Deviation 49.8 H RDW Coeff of Heladio 14.0 Plt Count 225 MPV 10.7 Immature Gran % (Auto) 0.400 Neut % (Auto) 63.9 Lymph % (Auto) 26.2 Mclennan % (Auto) 8.1 Eos % (Auto) 0.8 Baso % (Auto) 0.6 Absolute Neuts (auto) 3.4 Absolute Lymphs (auto) 1.39 Nucleated RBC % 0 Sodium 138 Potassium 4.2 Chloride 106 Carbon Dioxide 29.0 Anion Gap 3 L BUN 25 H Creatinine 0.91 Estim Creat Clear Calc 34.45 Est GFR (MDRD) Af Amer 75 Est GFR (MDRD) Non-Af 62 BUN/Creatinine Ratio 27.4 H Glucose 98 Calcium 9.1 Troponin I High Sens 11 Radiography Diagnostic Testing: Clinical Impression(s) from Imaging Studies Chest X-Ray 01/23/23 09:20 IMPRESSION: No radiographic evidence of acute cardiopulmonary disease. Electronically Signed: Maureen Angeles MD at 9:33 EST , Discharge Plan Triage Chief Complaint: Hypertension ED Provider: Mario Cruz Dx/Rx/DC Orders Instructions: ED Hypertension, Established, ED Palpitations Prescriptions: New amlodipine 5 mg tablet 5 mg PO DAILY Qty: 30 0RF No Action nitroglycerin 0.4 mg tablet, sublingual 0.4 mg SL Q5M PRN (Reason: ANGINA) Qty: 25 3RF Eliquis 2.5 mg tablet 2.5 mg PO BID famotidine [Pepcid AC] 10 mg tablet 10 mg PO ONCE PRN ezetimibe [Zetia] 10 mg tablet 10 mg PO DAILY Qty: 30 11RF cholecalciferol (vitamin D3) 5,000 UNIT capsule 5,000 unit PO DAILY coenzyme Q10 200 MG capsule 200 mg PO DAILY desoximetasone 0.25 % cream 1 applic topical DAILY PRN (Reason: Fill as courtesy until pt obtains new Primary DrNelli ) Qty: 15 1RF carvedilol 3.125 mg tablet 3.125 mg PO BID Qty: 180 3RF Rx Instructions: must administer with a meal/food Primary Care Provider: Care Physician,No Primary Referrals: Octavio Lopez MD [Med Staff - Active Staff] - 3-5 Days Care Physician,No Primary [Primary Care Provider] - Disposition Disposition: Home, Self Care What to do if you have Problems For any increased pain, shortness of breath, bleeding, nausea or vomiting, chestpain, or any unexpected problems, contact your Primary Care Provider. Call [facility] ([phone]) or report to the closest Emergency Room. Call 911 if necessary. 01/23/23 1047 <Electronically signed by Mario Cruz DO> Cosigner Signature (if applicable): CC: No Primary Care Physician ~ Signed [facility] Work Phone: Evaluation + Plan note Future Appointments Appointment Date:01/26/2024 02:30:00 PM Scheduled Provider:AMRITA CHAVARRIA Location:[facility] Appointment Type:[facility] Evaluation noteNo assessment information available [facility] Work Phone: Evaluation note* Diagnosis Nonrheumatic aortic valve stenosis- Primary Aortic valve disorders documented in this encounter [facility] course Narrative No data available for this section [facility] Discharge instructions Additional Instructions Albuterol MDI: 2 puffs every 4 hours as needed for cough/wheezing.[facility] Work Phone: Reason for referral (narrative)No reason for referral information availableWOhioHealth [facility] Work Phone: Summary note* Roxie Hines: PERFORM Event Display: Patient Summary Documents Authored Date: [id number] [facility] Advance Directives No Advanced Directives Records Found Advance Directive Response Recorded Date/ Time Advance Directives No April 13, 2016 3:02am Living Will No December 06 3:42pm Power of [employer] No December 06 3:42pm Advance Directive Response Recorded Date/ Time Name of Medical Power of [employer] MARA LARA March 09, 2022 10:59pm Advance Directives No April 13, 2016 2:02am Living Will No March 09 10:59pm Power of [employer] Yes March 09 10:59pm Advance Directive Response Recorded Date/ Time Advance Directives No April 13, 2016 2:02am Living Will No January 23 10:58am Power of [employer] No January 23, 2023 10:58am Advance Directive Response Recorded Date/ Time Living Will Yes November 07 12:36am Do you have a Healthcare Power of [place] [employer] [employer]? Yes November 08, 2023 12:36am Advance Directives No April 13, 2016 3:02am Advance Directive Response Recorded Date/ Time Advance Directives No April 13, 2016 3:02am Chief Complaint and Reason for Visit Chief Complaint 6 M FU NONRHEUMATIC AORTIC STENOSIS COUGH Reason for Visit Essential (primary) hypertension History of coronary artery stent placement Hyperlipidemia Nonrheumatic aortic (valve) stenosis Chief Complaint 6 M FU Nonrheumatic aortic (valve) stenosis Amb Documentation HYPERTENSION Reason for Visit Essential (primary) hypertension History of coronary artery stent placement Hyperlipidemia Nonrheumatic aortic (valve) stenosis Chief Complaint Admit Date 6 M FU February 22, 2024 10:28am POST OP TAVR March 12, 2024 12 :51pm 4 M FU June 05, 2024 11:2 5am EORDER June 05, 2024 12:1 8pm Reason for Visit Admit Date Deep vein thrombosis February 22, 2024 10:28am Essential (primary) hypertension Decembe r 2023 10:28am History of coronary artery stent placeme nt February 22, 2024 10:28am Hyperlipidemia February 22, 2024 10:28am Nonrheumatic aortic (valve) stenosis Dec ember 2023 10:28am S/P TAVR (transcatheter aortic valve rep lacement) February 22, 2024 10:28am Deep vein thrombosis June 05, 2024 11: 25am Essential (primary) hypertension June 052024 11:25am History of coronary artery stent placeme nt June 05, 2024 11:25am Hyperlipidemia June 05, 2024 11:2 5am S/P TAVR (transcatheter aortic valve rep lacement) June 05, 2024 11:25am Chief Complaint Admit Date 4 M FU June 05, 2024 11:2 5am EORDER June 05, 2024 12:1 8pm BP Issues June 21, 2024 8:2 1am Presence of prosthetic heart valve July 052024 9:03am Reason for Visit Admit Date Deep vein thrombosis June 05, 2024 11: 25am Essential (primary) hypertension June 052024 11:25am History of coronary artery stent placeme nt June 05, 2024 11:25am Hyperlipidemia June 05, 2024 11:2 5am S/P TAVR (transcatheter aortic valve rep lacement) June 05, 2024 11:25am Deep vein thrombosis June 21, 2024 8: 21am Essential (primary) hypertension June 052024 8:21am History of coronary artery stent placeme nt June 21, 2024 8:21am Hyperlipidemia June 21, 2024 8:2 1am S/P TAVR (transcatheter aortic valve rep lacement) June 21, 2024 8:21am Summary Purpose Family History No Family History Records Found Additional Source Comments Goals (unrecognized section and content) Goals may be documented in a n alternate sectionGoals may be documented in an alternate sectionGoals may be documented in an alternate section No data available for this sectionGoals may be documented in an alternate sectionGoals may be documented in an alternate sectionGoals may be documented in an alternate section Care Teams (unrecognized sec tion and content) Team Status: Active Member Role Status Dates Dr. Edgar Crooks MD Family Provider Active No Primary Care Physician Primary Care Provider Active Team Status: Inactive Member Role Status Dates No Primary Care Physician Primary Care Provider, Refer ring Provider Active Priyanka Marks BULKER, BULKER-C Attending Provider Active Team Status: Active Member Role Status Dates No Primary Care Physician Primary Care Provider Active Dr. Octavio Lopez MD Attending Provider Active Team Status: Active Member Role Status Dates No Primary Care Physician Primary Care Provider Active Priyanka Marks BULKER, BULKER-C Attending Provider Active Team Status: Inactive Member Role Status Dates No Primary Care Physician Primary Care Provider Active Dr. Octavio Lopez MD Other Provider Active Priyanka Marks BULKER, BULKER-C Attending Provider, Referring Apple moreno Active Team Status: Inactive Member Role Status No Primary Care Physician Primary Care Provider Active Dr. Mario Cruz DO Emergency Provider Active Team Status: Active Member Role Status Dates Dr. Edgar Crooks MD Family Provider Active Amadou Liu MD Primary Care Provider Active Team Status: Active Member Role Status Hany Liu MD Primary Care Provider Active St art: February 13, 2024 Dr. Octavio Lopez MD Attending Provider Active S tart: February 13, 2024 Team Status: Inactive Member Role Status Hany Liu MD Primary Care Provider Active St art: February 22, 2024 End: February 22, 2024 Amadou Liu MD Referring Provider Active Start : February 22, 2024 End: February 22, 2024 Anali Daniel PA, PA Attending Provider Active Start: February 22, 2024 End: February 22, 2024 Team Status: Inactive Member Role Status Hany Liu MD Primary Care Provider Active St art: February 24, 2024 End: February 24, 2024 Amadou Liu MD Attending Provider Active Start : February 24, 2024 End: February 24, 2024 Amadou Liu MD Referring Provider Active Start : February 24, 2024 End: February 24, 2024 Team Status: Active Member Role Status Hany Liu MD Primary Care Provider Active St art: March 12, 2024 PRECIOUS FERRARI Attending Provider Active St art: March 12, 2024 PRECIOUS FERRARI Referring Provider Active St art: March 12, 2024 Team Status: Active Member Role Status Hany Liu MD Primary Care Provider Active St art: March 12, 2024 Dr. Octavio Lopez MD Attending Provider Active S tart: March 12, 2024 Team Status: Inactive Member Role Status Hany Liu MD Primary Care Provider Active St art: June 05, 2024 End: June 05, 2024 Amadou Liu MD Referring Provider Active Start : June 05, 2024 End: June 05, 2024 Anali Daniel PA, PA Attending Provider Active Start: June 05, 2024 End: June 05, 2024 Team Status: Inactive Member Role Status Dates Amadou Liu MD Primary Care Provider Active St art: June 05, 2024 End: June 05, 2024 Anali MENDEZ PA Attending Provider Active Start: June 05, 2024 End: June 05, 2024 Anali MENDEZ, PA Referring Provider Active Start: June 05, 2024 End: June 05, 2024 Team Status: Inactive Member Role Status Dates Amadou Liu MD Primary Care Provider Active St art: March 12, 2024 End: March 12, 2024 PRECIOUS FERRARI Attending Provider Active St art: March 12, 2024 End: March 12, 2024 PRECIOUS FERRARI Referring Provider Active St art: March 12, 2024 End: March 12, 2024 Team Status: Active Member Role Status Hany Liu MD Primary Care Provider Active Team Status: Inactive Member Role Status Hany Liu MD Primary Care Provider Active St art: June 21, 2024 End: June 21, 2024 Amadou Liu MD Referring Provider Active Start : June 21, 2024 End: June 21, 2024 Anali MENDEZ PA Attending Provider Active Start: June 21, 2024 End: June 21, 2024 Team Status: Inactive Member Role Status Hany Liu MD Primary Care Provider Active St art: July 17, 2024 End: July 17, 2024 Anali MENDEZ PA Attending Provider Active Start: July 17, 2024 End: July 17, 2024 Anali MENDEZ PA Referring Provider Active Start: July 17, 2024 End: July 17, 2024 Team Status: Active Member Role Status Hany Liu MD Primary Care Provider Active St art: July 17, 2024 Dr. Octavio Lopez MD Attending Provider Active S tart: July 17, 2024 INFORMATION SOURCE (unrecogn ized section and content) DATE CREATED AUTHOR 03/05/2023 [facility] DATE CREATED AUTHOR AUTHOR'S ORGANIZ ATION 12/25/2023 [facility] DATE CREATED AUTHOR AUTHOR'S ORGANIZ ATION 01/11/2024 [facility] DATE CREATED AUTHOR AUTHOR'S ORGANIZ ATION 02/20/2024 [facility] DATE CREATED AUTHOR AUTHOR'S ORGANIZ ATION 07/22/2024 [facility] Source Comments (unrecognize d section and content) In the event this informatio n is protected by the Federal Confidentiality of Alcohol and Drug Abuse Patient Records regulations: The Federal rules restrict any use of the information to criminally investigate or prosecute any alcohol or drug abuse patient.[facility] FoundationIn the event this information is protected by the Federal Confidentiality of Alcohol and Drug Abuse Patient Records regulations: The Federal rules restrict any use of the information to criminally investigate or prosecute any alcohol or drug abuse patient.[facility] FoundationIn the event this information is protected by the Federal Confidentiality of Alcohol and Drug Abuse Patient Records regulations: The Federal rules restrict any use of the information to criminally investigate or prosecute any alcohol or drug abuse patient.[facility] Reason for Visit (unrecogniz ed section and content) Reason Comments Received Outside Medical Records Reason Comments TAVR Consult FOR RECORDS PERTAINING TO PATIENTS WHO ARE OR HAVE BEEN ENROLLED IN A CHEMICAL DEPENDENCY/SUBSTANCEABUSE PROGRAM, SOME INFORMATION MAY BE OMITTED. This clinical summary was aggregated from multiple sources. Caution should be exercised in using it in the provision of clinical care. This summary normalizes information from multiple sources, and as a consequence, information in this document may materially change the coding, format and clinical context of patient data. In addition, data may be omitted in some cases. CLINICAL DECISIONS SHOULD BE BASED ON THE PRIMARY CLINICAL RECORDS. [employer] [facility]. provides no warranty or guarantee of the accuracy or completeness of information in this document.
[2024-08-23 02:19] VITALS: BP 165/76; PULSE 64; RESP 16; O2SAT 97
--- NOTE | 2024-08-23 02:40 | EDS_ITS ---
HPI History of Present Illness Chief Complaint: Chest Pain Informant: patient and family Narrative Narrative: Patient is a 89-year-old female with past medical history of hypertension hyperlipidemia and CAD. She states that she has been taking her medications as directed. This evening she noticed a vague left-sided chest discomfort and checked her blood pressure and she states it was elevated at approximately 200. She denies any excessive stimulant use or illicit drug use. She states that because of her history of CAD and the fact that her blood pressure has been reading high despite her taking her medication she was concerned for a cardiac event and therefore comes in for evaluation [facility] Medical History Anemia Back pain GERD (gastroesophageal reflux disease) Obesity Deep vein thrombosis Essential (primary) hypertension Nonrheumatic aortic (valve) stenosis Hyperlipidemia Atherosclerotic heart disease of [place] coronary artery without angina pectoris Home Medications ?Medication ?Instructions ?Recorded ?Last Taken ?Type cholecalciferol (vitamin D3) 125 5,000 unit PO DAILY S UPPLEMENT 12/12/17 11/20/19 History mcg (5,000 unit) capsule coenzyme Q10 200 mg capsule 200 mg PO DAILY SUPPLEMENT 12/12/17 11/20/19 History nitroglycerin 0.4 mg sublingual 0.4 mg sublingual Q5M PRN ANGINA 06/19/20 Unknown Rx tablet #25 tabs famotidine 10 mg tablet (Pepcid AC) 10 mg PO ONCE PRN gerd 12/06/22 Unknown History desoximetasone 0.25 % topical cream 1 applic topical D AILY PRN Fill as 02/09/23 Unknown Rx courtesy until pt obtains new Primary DrNelli #15 grams apixaban 2.5 mg tablet (Eliquis) 2.5 mg PO BID #180 ta bs 02/23/24 Unknown Rx carvedilol 12.5 mg tablet 12.5 mg PO BID #180 tabs 08/29 Unknown Rx clopidogrel 75 mg tablet 75 mg PO QDAY #90 tabs 03/12 Unknown Rx valsartan 160 mg tablet 160 mg PO BID #180 tabs 08/29 Unknown Rx amlodipine 5 mg tablet (Norvasc) 5 mg PO QDAY #30 tabs 06/21/24 Unknown Rx Allergy/AdvReac Type Severity Reaction Status Date / Time azithromycin Allergy Severe Other Verified 08/23/24 00:34 pravastatin AdvReac Severe mylagias Verified 08/23/24 00:34 Family History Other CVA (cerebral vascular accident) Surgical History 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) Hx of cataract surgery History of left heart catheterization (07/26/13) History of coronary artery stent placement (06/19/01) Social History household members: none Smoking Status: Never smoker alcohol intake: current alcohol intake frequency: other substance use type: does not use caffeine: No ROS ROS ED Constitutional Constitutional ED: Denies chills or fever(s) Eyes Eyes: Denies blurry vision or change in vision ENT ENT ED: Denies sore throat Cardiovascular Cardiovascular: Reports chest pain; Denies palpitations or racing heartbeat Respiratory/Chest Respiratory/Chest: Denies cough or dyspnea Gastrointestinal Gastrointestinal: Denies abdominal pain, diarrhea, nausea or vomiting Genitourinary Genitourinary ED: Denies dysuria Musculoskeletal Musculoskeletal: Denies back pain or myalgias Integumentary Denies rash Neurologic Neurologic: Denies headache(s) or weakness Hematologic/Lymphatic Hematologic/Lymphatic: Reports easy bleeding and easy bruising EXAM Physical Exam Const Vital Signs: 08/23/24 00:32 08/23/24 00:35 08/23/24 02:19 Temperature 97.7 F L Temperature Source Oral Pulse Rate 74 64 Respiratory Rate 16 16 Respiratory Effort Normal Blood Pressure 159/121 H 165/76 H Blood Pressure Mean 133 105 Pulse Ox 98 97 Oxygen Delivery Method Room Air Room Air 08/23/24 03:05 08/23/24 03:05 Temperature 97.7 F L Temperature Source Pulse Rate 63 65 Respiratory Rate 16 16 Respiratory Effort Blood Pressure 139/58 H 139/58 H Blood Pressure Mean 85 85 Pulse Ox 97 98 Oxygen Delivery Method Room Air Positive well nourished and well developed General Appearance ED: well developed; Negative for pallor HEENT HEENT Narrative: Normocephalic atraumatic Eyes PERRL and EOMs intact bilaterally General Eye ED: Negative for scleral icterus Neck supple and no JVD Neck Narrative: No nuchal rigidity or meningeal signs Chest Wall palpation of chest normal Chest Narrative: No bony deformity or crepitance palpated No reproducible pain on palpation Resp normal respiratory effort and clear to auscultation bilaterally Cardio regular rate and regular rhythm Rate: other Other Details: Heart is regular rate and rhythm Radial and carotid pulses are equal and symmetric No carotid bruit noted GI normal to inspection, nondistended, normoactive bowel sounds, non-tender, non- distended and no masses GI Narrative: No voluntary guarding or rigidity or pulsatile mass Auscultation: normoactive bowel sounds Palpation: soft Back/Spine no CVA tenderness Extremity Extremity Narrative: No asymmetric edema no pitting edema negative Homans' sign bilaterally 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 Neuro oriented x3, CN's II-XII intact bilaterally and no sensory deficits noted Neuro Narrative: GCS of 15 Cranial nerves II through XII are grossly intact without focal neurologic deficit No pronator drift no dysmetria no truncal ataxia NIH stroke scale score of 0 Sensorium / Orientation: alert Motor Exam: strength 5/5 throughout Psych mental status grossly normal Skin no rashes or lesions noted General Skin Exam: Negative for jaundice or pallor MDM MDM MDM Narrative Medical decision making narrative: Patient arrived to the ER hypertensive but has spontaneously improved from the blood pressure she reported at home. She has no signs of hypertensive encephalopathy and she denies any headache so there for my concern for spontaneous subarachnoid subdural hemorrhage is low and I feel no need for head CT. She reported spontaneous resolution of the chest discomfort prior to arrival with her known history of CAD and reported hypertension there is concern for ACS so an EKG was obtained with a troponin. EKG revealed no ischemic or cardiac dysrhythmia for changes and troponin was normal at 12 going against ACS. Lab work also showed no sign of acute kidney injury. She was medicated with IV hydralazine and oral clonidine. On reevaluation the blood pressure has improved by 15 to 25% which is the goal reduction in the ER. Therefore at this time with improvement of the hypertension spontaneous resolution of her chest pain and no signs of JUANY or concern for hypertensive encephalopathy I do not feel there is need for further evaluation and she is otherwise safe for discharge. History & Record Review Discussion w/independent historian: Patient and Family Lab Data Attestation: I reviewed the patient's lab results. Labs: Laboratory Results - last 24 hr 06/19/25 00:43 WBC 4.2 L RBC 3.55 L Hgb 11.6 L Hct 34.7 L MCV 97.7 MCH 32.7 H MCHC 33.4 RDW Std Deviation 52.3 H RDW Coeff of Heladio 14.4 Plt Count 203 MPV 11.2 Immature Gran % (Auto) 0.500 Neut % (Auto) 58.5 Lymph % (Auto) 27.8 [place] % (Auto) 10.8 H Eos % (Auto) 1.7 Baso % (Auto) 0.7 Absolute Neuts (auto) 2.4 Absolute Lymphs (auto) 1.16 Nucleated RBC % 0 Sodium 137 Potassium 4.3 Chloride 102 Carbon Dioxide 23.9 Anion Gap 11 BUN 20 H Creatinine 0.94 Estim Creat Clear Calc 37.21 L Est GFR (MDRD) Non-Af 58 L BUN/Creatinine Ratio 20.7 H Glucose 108 H Calcium 9.5 Troponin T High Sens 12 Discharge Plan Triage Chief Complaint: Chest Pain ED Provider: Ruiz Luo Dx/Rx/DC Orders Clinical Impression: Accelerated hypertension, Hyperlipidemia, Coronary artery disease Instructions: ED Hypertension, Established Prescriptions: No Action nitroglycerin 0.4 mg tablet, sublingual 0.4 mg SL Q5M PRN (Reason: ANGINA) Qty: 25 3RF famotidine [Pepcid AC] 10 mg tablet 10 mg PO ONCE PRN (Reason: gerd) desoximetasone 0.25 % cream 1 applic topical DAILY PRN (Reason: Fill as courtesy until pt obtains new P charmaine Vanessa ) Qty: 15 1RF amlodipine [Norvasc] 5 mg tablet 5 mg PO QDAY Qty: 30 6RF cholecalciferol (vitamin D3) 5,000 UNIT capsule 5,000 unit PO DAILY coenzyme Q10 200 MG capsule 200 mg PO DAILY Eliquis 2.5 mg tablet 2.5 mg PO BID Qty: 180 3RF carvedilol 12.5 mg tablet 12.5 mg PO BID Qty: 180 3RF clopidogrel 75 mg tablet 75 mg PO QDAY Qty: 90 3RF valsartan 160 mg tablet 160 mg PO BID Qty: 180 3RF Primary Care Provider: Amadou Live Referrals: Amadou Live MD [Primary Care Provider] - Activity Restrictions/Additional Instructions: Your workup showed no sign of heart damage or kidney damage associated from your high blood pressure this evening. Please continue all of your blood pressure medications as directed by your family doctor and follow-up with them for repeat evaluation. Return to the ER should you have any further concerns Print Language: Portuguese Disposition Disposition: Home, Self Care Discharge Date/Time: 08/23/24 03:15
[2024-08-23 03:05] VITALS: BP 139/58; PULSE 63; PULSE 65; RESP 16; TEMP 36.5; O2SAT 97; O2SAT 98
== END 2024-08-23 03:15 | disposition home or self-care (01) ==
PROVIDERS: Emergency Provider Emergency Medicine; PCP Family Medicine; Visit Provider Emergency Medicine
DX: R07.9 Chest pain, unspecified (principal); I25.10 Atherosclerotic heart disease of native coronary artery without angina pectoris; E78.5 Hyperlipidemia, unspecified; I10 Essential (primary) hypertension; K21.9 Gastro-esophageal reflux disease without esophagitis; Z79.899 Other long term (current) drug therapy; I35.0 Nonrheumatic aortic (valve) stenosis; Z79.02 Long term (current) use of antithrombotics/antiplatelets; Z86.718 Personal history of other venous thrombosis and embolism; Z79.01 Long term (current) use of anticoagulants; Z95.5 Presence of coronary angioplasty implant and graft
CPT/HCPCS: 80048; 84484; 85025; 93005; 96374; 99283; A4216

== ENCOUNTER → 2024-09-25 | Outpatient (CLI) | payer MEDICARE, OTHER, SELFPAY ==
--- NOTE | 2024-09-25 08:36 | RDU_ITS ---
Reason For Study Reason For Study: Labile HTN Right Renal Artery Left Renal Artery Right renal artery ostium 97.9/13.9 Left renal artery ostium 108.8/14.5 RSV/EDV. PSV/EDV. Right renal artery proximal 102.4/16.7 Left renal artery proximal PSV/EDV PSV/EDV. 163.7/21.1 . Right renal artery mid 109.4/18.7 Left renal artery mid 157.1/23.3 PSV/EDV. PSV/EDV . Right renal artery distal 101.4/11.8 Left renal artery distal 163/28.2 PSV/EDV. PSV/EDV. Right RAR 2.03. Left RAR 3.04. Right Renal Parenchyma Left Renal Parenchyma Upper Pole Medula 26.2/3.4 PSV/EDV. Left upper pole medulla 24.7/5 PSV/EDV . Right upper pole medulla EDR 0.1 . Left upper pole medulla EDR 0.2 . Right upper pole medulla R.I. 0.87 . Left upper pole medulla R.I. 0.80 . Upper Loi Cortx 13.3/3.4 PSV/EDV. UP Cortex 15.5/4.4 PSV/EDV. Right upper pole cortex EDR 0.3 . Left upper pole cortex EDR 0.3 . Right upper pole cortex R.I. 0.74 . Left upper pole cortex R.I. 0.71 . Right lower Pole medulla 36/5.9 PSV/EDV . Left lower Pole medulla 24.1/5 PSV/EDV . Right lower pole medulla EDR 0.2 . Left lower pole medulla EDR 0.2 . Right lower pole medulla R.I. 0.84 . Left lower pole medulla R.I. 0.79 . Lower Pole Cortex 20/4.7 PSV/EDV. Lower Pole Cortx 18.5/5.6 PSV/EDV. Right lower pole cortex EDR 0.2 . Left lower pole cortex EDR 0.3 . Right lower pole cortex R.I. 0.77 . Left lower pole cortex R.I. 0.70 . Right Renal Hilar Left Renal Hilar Right Hilar avg 58.5/13 PSV/EDV. LT Hilar avg 76.3/14.1 PSV/EDV . Right hilar acceleration time 60 m/sec. Left hilar acceleration time 60 m/sec. Right Renal Dimensions Left Renal Dimensions Right kidney size 9.27 cm . Left kidney size 9.42 cm . Right cortical dimension 1.37 cm . Left cortical dimension 1.36 cm . Aorta Proximal abdominal aorta 1.56 x 1.54 cm . Proximal abdominal aorta peak systolic velocity is 53.8 cm/sec . Distal abdominal aorta 1.46 x 1.44 cm . Distal abdominal aorta peak systolic velocity is 75.4 cm/sec . VL/Renal Artery Duplex Ultrasound Interpretation Summary Right renal artery patent with normal velocities and no evidence of stenosis. Left renal artery patent with normal velocities and no evidence of stenosis. Right renal vein patent. Left renal vein patent. Right kidney normal in size. Left kidney normal in size. Ordering Physician: Anali Daniel Referring Physician: Amadou Live Performed By: Rosa Arevalo RVT
== END | disposition home or self-care (01) ==
LOC: CVS 08:35
PROVIDERS: PCP Family Medicine; Referring Provider Physician Assistant Medical; Visit Provider Physician Assistant Medical
DX: R09.89 Other specified symptoms and signs involving the circulatory and respiratory systems (principal)
CPT/HCPCS: 93975

== ENCOUNTER 2024-10-24 20:27 | Emergency (ER) | payer MEDICARE, OTHER, SELFPAY ==
[2024-10-24 20:27] VITALS: BP 233/95; PULSE 77; RESP 14; TEMP 36.8; O2SAT 98; BMI 28.0
--- NOTE | 2024-10-24 20:30 | EKG12_ITS ---
Test Reason : CHEST PAIN Blood Pressure : */* mmHG Vent. Rate : 72 BPM Atrial Rate : 72 BPM P-R Int : 176 ms QRS Dur : 80 ms QT Int : 418 ms P-R-T Axes : 28 15 44 degrees QTcB Int : 457 ms Normal sinus rhythm Normal ECG Confirmed by ELIZABETH PAEZ, ELIEZER ([id number]), continuity editor CANDIE PEMBERTON ([id number]) on 10/25/2024 1:36:59 PM Referred By: YOHANNES Confirmed By: ELIEZER JOHNSON MD
[2024-10-24 21:13] VITALS: BP 229/79; PULSE 69; RESP 18; O2SAT 100
--- NOTE | 2024-10-24 21:14 | RAD_ITS ---
PROCEDURE: CHEST 1 VIEW (PORTABLE) 10/24/2024 REASON FOR EXAM: CHEST PAIN TECHNIQUE: Frontal view of the chest. COMPARISON: Chest x-ray 01/10/2024. FINDINGS: Hardware: Monitor electrodes overlie the chest. Heart: No cardiomegaly. An aortic valve prosthesis is in place.. Suspected mediastinum widening. Lungs: Clear. No pleural effusion or pneumothorax. Bones: No acute bony abnormalities. RAD/Chest 1 View (Portable) IMPRESSION: Suspected mediastinal widening. CTA chest may be performed for further evaluat ion. Reading Location: [id number]
[2024-10-24 21:25] LABS: Hematocrit 35.9 % (37-47); Hemoglobin 12.0 g/dL (12.0-15.0); Immature Granulocytes Count 0.020 X10^3/uL (0.0-0.0); Mean Corp Hgb Conc 33.4 g/dL (32-36); Mean Corpuscular Volume 98.1 fL (81-99); Mean Platelet Vol. 11.6 fl (6.2-12.0); NRBC Flagged by Analyzer 0 % (0-5); Platelet Count 203 K/mm3 (150-450); RBC Distribution Width CV 14.4 % (11.6-14.6); RBC Distribution Width SD 51.9 fl (35.1-43.9); Red Blood Count 3.66 M/mm3 (4.2-5.4); White Blood Count 4.5 K/mm3 (4.4-11.0)
--- NOTE | 2024-10-24 21:25 | EDS_ITS ---
HPI History of Present Illness Chief Complaint: Chest Pain Informant: patient and family Narrative Narrative: Chest heaviness left side 3 PM while at rest. Lasted a few hours she took 3 nitros with resolution of symptoms. No pain arm neck or back. No diaphoresis. No dyspnea. No dyspnea. History of coronary disease with stenting she states the last time was February of this past year. Also had a valve replacement. She is followed by cardiology Dr. Lopez. Denies cough. She is also on Eliquis she is unclear why. Denies history of any dysrhythmia. Prior Similar Symptoms: Yes CVD Risk Factors: Positive for Hypertension and Hypercholesterolemia; Negative for Diabetes PE Risk Factors: Negative for Recent Travel/Surgery, Recent Immobilization or Prior DVT or PE [facility] Medical History Anemia Back pain GERD (gastroesophageal reflux disease) Obesity Deep vein thrombosis Essential (primary) hypertension Nonrheumatic aortic (valve) stenosis Hyperlipidemia Atherosclerotic heart disease of [place] coronary artery without angina pectoris Home Medications ?Medication ?Instructions ?Recorded ?Last Taken ?Type cholecalciferol (vitamin D3) 125 5,000 unit PO DAILY S UPPLEMENT 12/12/17 11/20/19 History mcg (5,000 unit) capsule coenzyme Q10 200 mg capsule 200 mg PO DAILY SUPPLEMENT 12/12/17 11/20/19 History nitroglycerin 0.4 mg sublingual 0.4 mg sublingual Q5M PRN ANGINA 06/19/20 Un known Rx tablet #25 tabs famotidine 10 mg tablet (Pepcid AC) 10 mg PO ONCE PRN gerd 12/06/22 Unknown History desoximetasone 0.25 % topical cream 1 applic topical D AILY PRN Fill as 02/09/23 Unknown Rx courtesy until pt obtains new Primary #15 grams apixaban 2.5 mg tablet (Eliquis) 2.5 mg PO BID #180 ta bs 02/23/24 Unknown Rx carvedilol 12.5 mg tablet 12.5 mg PO BID #180 tabs 08/29 Unknown Rx clopidogrel 75 mg tablet 75 mg PO QDAY #90 tabs 03/12 Unknown Rx amlodipine 5 mg tablet (Norvasc) 2.5 mg (1/2 x 5 mg) P O QDAY #30 09/11/24 Unknown Rx tabs valsartan 160 mg tablet 80 mg (1/2 x 160 mg) PO BID #180 09/25/24 Unknown Rx tabs isosorbide mononitrate 60 mg 60 mg PO DAILY #30 tabs 0 10/25/24 Unknown Rx tablet,extended release 24 hr nitroglycerin 0.4 mg sublingual 0.4 mg sublingual Q5M PRN chest 10/25/24 Unknown Rx tablet pain #30 tabs Allergy/AdvReac Type Severity Reaction Status Date / Time azithromycin Allergy Severe Other Verified 10/24/24 20:27 pravastatin AdvReac Severe mylagias Verified 10/24/24 20:27 Family History Other CVA (cerebral vascular accident) Surgical History 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) Hx of cataract surgery History of left heart catheterization (07/26/13) History of coronary artery stent placement (06/19/01) Social History household members: none Smoking Status: Never smoker alcohol intake: current alcohol intake frequency: other substance use type: does not use caffeine: No ROS ROS ED Constitutional Constitutional ED: Denies chills, fever(s) or sweats ENT ENT ED: Denies sore throat Cardiovascular Cardiovascular: Reports chest pain; Denies leg edema, palpitations or racing heartbeat Respiratory/Chest Respiratory/Chest: Denies cough, dyspnea or dyspnea on exertion Gastrointestinal Gastrointestinal: Denies abdominal pain, diarrhea, nausea or vomiting Genitourinary Genitourinary ED: Denies dysuria, hematuria or urinary frequency Musculoskeletal Musculoskeletal: Denies back pain, extremity pain or neck pain Integumentary Denies rash or wounds Neurologic Neurologic: Denies headache(s), paresthesias or weakness EXAM Physical Exam Const Vital Signs: 10/24/24 20:27 10/24/24 21:13 10/24/24 21:13 Temperature 98.3 F Temperature Source Oral Pulse Rate 77 69 Respiratory Rate 14 18 Respiratory Effort Respiratory Pattern Blood Pressure 233/95 H 229/79 H Blood Pressure Mean 141 129 Pulse Ox 98 100 Oxygen Delivery Method Room Air Room Air Room Air 10/24/24 21:13 10/24/24 21:13 10/24/24 22:00 Temperature Temperature Source Pulse Rate 75 Respiratory Rate 17 Respiratory Effort Normal Normal Respiratory Pattern Normal Blood Pressure 208/87 H Blood Pressure Mean 127 Pulse Ox 99 Oxygen Delivery Method Room Air 10/24/24 23:00 10/25/24 00:00 10/25/24 00:10 Temperature 97.8 F Temperature Source Pulse Rate 64 61 61 Respiratory Rate 16 16 16 Respiratory Effort Respiratory Pattern Blood Pressure 206/85 H 203/65 H 203/65 H Blood Pressure Mean 125 111 111 Pulse Ox 100 98 98 Oxygen Delivery Method Room Air Room Air Positive well nourished and well developed General Appearance ED: well developed and NAD HEENT Reports moist mucous membranes normocephalic and atraumatic Eyes General Eye ED: Yes normal appearance of both eyes Neck full ROM Chest Wall Chest: Negative for tenderness Resp normal respiratory effort and normal air movement Effort and Inspection: symmetric chest movement; Negative for respiratory distress Cardio regular rate, regular rhythm and no murmurs Peripheral Pulses: pulses 2+ throughout GI normal to inspection, nondistended, normoactive bowel sounds and non-tender Palpation: Negative for guarding or rebound tenderness present Extremity normal to inspection General Extremety ED: Negative for edema or tenderness General Extremity: Negative for edema Neuro oriented x3 and no sensory deficits noted Sensorium / Orientation: awake and alert Skin no rashes or lesions noted and no wounds Heart Score History: Moderately Suspicious ECG: Normal Age: >/= 65 years Risk Factors: >/= 3 Risk Factors or History of CAD Troponin: </= Normal Limit Score: 5 MDM MDM MDM Narrative Medical decision making narrative: Interventions / MDM: Differential diagnosis: Chest pain, history of coronary disease, accelerated hypertension, chronic anticoagulation Diagnosis considered but do not suspect: Hypertensive emergency however workup negative. Aortic dissection however CT negative. My EKG interpretation: Sinus rate of 72, no ST or T wave changes. Imaging independently reviewed and interpreted by myself: 1 view chest x-ray: Widened mediastinum and also in radiology. CT angiogram chest: with no acute process. External documents reviewed: Cardiology office note last month. On 02/08/2024 patient underwent a diagnostic heart catheterization. Heart catheterization demonstrated left main no disease, LAD torturous calcified with 50% disease in the midsegment after the origin of the large diagonal, circumflex gives off to a couple of very small high OM's followed by 80% stenosis before the OM 3, RCA large dominant tortuous calcified with serial 70 to 80% lesion of the mid segment. Patient underwent stenting of the RCA with 2 stents. On 02/09/2024 patient underwent a TAVR replacement with a 27 mm Khan and avatar trans catheter heart valve. Test considered but not ordered:N/A ED course: Chest heaviness resolved with nitro at home currently symptom-free. Had approximately 3 hours of symptoms. Blood pressure elevated in the ED no headaches no sharp tearing chest pains or concerns for dissection. EKG no acute findings. Cardiac workup initiated. Status post Plavix at home she is on Eliquis. Chest x-ray widened mediastinum. CT angiogram ordered. Results negative. troponin negative x 2. Remains symptom-free. Blood pressure without intervention manage 203 systolic. Review of records in cardiology office blood pressure 140s to 150s. She has been compliant with her medications. She does have continued coronary disease with LAD calcification 50% OM lesions of 80%. 2355: I spoke with corporate development manager Dr. Lopez agrees with starting Imdur will start at 60 mg with her elevated blood pressure. Patient states her nitroglycerin sublingual was out of date. I will refill this. She will follow-up with cardiology office. Return precautions. All questions were answered. Re-evaluation: stable Disposition discussed with patient/family/significant other: Patient and family Case discussed with consulting clinician: N/A This note was generated with [employer] dictation software. It may contain incorrect words, spelling, and punctuation that were not noted in checking the note before signing. Lab Data Attestation: I reviewed the patient's lab results. Labs: Laboratory Results - last 24 hr 10/24/24 10/24/24 20:50 23:00 WBC 4.5 RBC 3.66 L Hgb 12.0 Hct 35.9 L MCV 98.1 MCH 32.8 H MCHC 33.4 RDW Std Deviation 51.9 H RDW Coeff of Heladio 14.4 Plt Count 203 MPV 11.6 Immature Gran % (Auto) 0.400 Neut % (Auto) 65.6 Lymph % (Auto) 24.4 [place] % (Auto) 7.8 Eos % (Auto) 0.9 Baso % (Auto) 0.9 Absolute Neuts (auto) 3.0 Absolute Lymphs (auto) 1.10 Nucleated RBC % 0 PT 14.6 INR 1.1 Sodium 139 Potassium 4.6 Chloride 103 Carbon Dioxide 24.7 Anion Gap 12 BUN 23 H Creatinine 0.89 Estim Creat Clear Calc 39.13 L Est GFR (MDRD) Non-Af 62 BUN/Creatinine Ratio 26.3 H Glucose 99 Calcium 9.7 Troponin T High Sens 12 Troponin T Hi Sens 2 Hr 13 Radiography Diagnostic Testing: Clinical Impression(s) from Imaging Studies Chest X-Ray 10/24/24 21:14 IMPRESSION: Suspected mediastinal widening. CTA chest may be performed for further evaluation. Reading Location: [facility] Chest CTA 10/24/24 21:45 IMPRESSION: 1. No acute intrathoracic findings. No pulmonary arterial emboli. 2. Cardiomegaly. No thoracic aortic aneurysm or dissection. Moderate a therosclerotic disease. 3. Few small nonobstructive renal stones seen in the upper pole of the right kidney. Reading Location: [facility] Discharge Plan Triage Chief Complaint: Chest Pain Other Complaint: Hypertension ED Provider: Steve Farnsworth Dx/Rx/DC Orders Clinical Impression: Chest pain, History of CAD (coronary artery disease), Chronic anticoagulation, Accelerated hypertension Instructions: ED Chest Pain, Uncertain Cause, ED High Blood Pressure New Begin Tx Prescriptions: New isosorbide mononitrate 60 mg tablet extended release 24 hr 60 mg PO DAILY Qty: 30 0RF nitroglycerin 0.4 mg tablet, sublingual 0.4 mg sublingual Q5M PRN (Reason: chest pain) Qty: 30 0RF Rx Instructions: do not exceed 3 doses per episode No Action nitroglycerin 0.4 mg tablet, sublingual 0.4 mg SL Q5M PRN (Reason: ANGINA) Qty: 25 3RF famotidine [Pepcid AC] 10 mg tablet 10 mg PO ONCE PRN (Reason: gerd) desoximetasone 0.25 % cream 1 applic topical DAILY PRN (Reason: Fill as courtesy until pt obtains new Primary DrNelli ) Qty: 15 1RF cholecalciferol (vitamin D3) 5,000 UNIT capsule 5,000 unit PO DAILY coenzyme Q10 200 MG capsule 200 mg PO DAILY Eliquis 2.5 mg tablet 2.5 mg PO BID Qty: 180 3RF carvedilol 12.5 mg tablet 12.5 mg PO BID Qty: 180 3RF clopidogrel 75 mg tablet 75 mg PO QDAY Qty: 90 3RF amlodipine [Norvasc] 5 mg tablet 2.5 mg PO QDAY Qty: 30 6RF valsartan 160 mg tablet 80 mg PO BID Qty: 180 3RF Primary Care Provider: Amadou Live Referrals: Amadou Live MD [Primary Care Provider] - Anali Daniel PA [Med Staff - Adv Practice Prof] - 1 Week Activity Restrictions/Additional Instructions: Cardiac workup negative. Your CT angiogram chest also negative. Blood pressure elevated in the ED. Discussed with Dr. Lopez, take isosorbide mononitrate as prescribed once daily this will help your blood pressure along with potential keeping symptoms from returning. You were refilled for your sublingual nitro to use as needed. Follow-up with Anali in the office. Print Language: Kyrgyz Disposition Disposition: Home, Self Care
[2024-10-24 21:38] LABS: Prothrombin Time (Protime)PT. 14.6 SECONDS (11.7-14.9)
--- OUTSIDE RECORDS SUMMARY | 2024-10-24 21:39 | XMS RPT_ITS | CCD ---
Author Organization [facility] Care Team Providers Care Service Coordinator Name Role Phone [place] Adamsamol Mitchell Unavailable [...] Kendrick CONRAD, GENA Mathew Attending Provider Dr. Octavio Lopez Attending Provider Unavailable Primary Care Provider [...] Provider Dr. Octavio Lopez MD Attending Provider Dr. Ruiz Luo DO Emergency Provider [phone] Dr. Ruiz Luo DO Attending Provider Katty PAEZ, Dr. Romano Attending Provider [phone] AYANNA ISSA Referring Unavailable AYANNA ISSA Attending Unavailable Calos, Chalon Primary Care Unavailable Calos, Chalon Referring Unavailable Calos, Chalon Primary Care Unavailable Anali Daniel Attending Unavailabl e Calos, Chalon Primary Care Unavailable Anali Daniel Referring Unavailabl e Anali Daniel Attending Unavailabl e Calos, Chalon Primary Care Unavailable Anali Daniel Referring Unavailabl e Anali Daniel Attending Unavailabl e Kendrick STORAGE CONSULTANT, Priyanka Referring Unavailable Marks STORAGE CONSULTANT, Priyanka Attending Unavailable Calos, Chalon Primary Care Unavailable Kendrick STORAGE CONSULTANT, Priyanka Consulting Unavailable Jessica, Octavio Referring Unavailable Jessica, Octavio Attending Unavailable Calos, Chalon Primary Care Unavailable Vasquez Blake Consulting Unavailable Calos, Chalon Primary Care Unavailable Ruiz Luo Attending Unavailable Calos, Chalon Primary Care Unavailable Hiram Bill Attending Unavailable Calos, Chalon Primary Care Unavailable Ruiz Luo Attending Unavailable Steve Farnsworth Attending Unavailable Calos, Chalon Primary Care Unavailable Calos, Chalon Primary Care Unavailable Calos, Chalon Referring Unavailable Roof STORAGE CONSULTANT, Erik H Attending Unavailable Calos, Chalon Referring Unavailable Roof STORAGE CONSULTANT, Erik H Attending Unavailable Calos, Chalon Primary Care Unavailable Calos, Chalon Referring Unavailable Calos, Chalon Primary Care Unavailable Anali Daniel Attending Unavailabl e Calos, Chalon Referring Unavailable Calos, Chalon Primary Care Unavailable Anali Daniel Attending Unavailabl e Calos, Chalon Referring Unavailable Marks STORAGE CONSULTANT, Priyanka Attending Unavailable Calos, Chalon Primary Care Unavailable Calos, Chalon Referring Unavailable Calos, Chalon Primary Care Unavailable Anali Daniel Attending Unavailabl e Juan Antonio Alaniz Attending Unavailable Calos, Chalon Primary Care Unavailable Anali Daniel Referring Unavailabl e Calos, Chalon Primary Care Unavailable Jessica, Banner Attending Unavailable Jessica, Octavio Referring Unavailable Jessica, Banner Attending Unavailable Calos, Chalon Primary Care Unavailable Calos, Chalon Primary Care Unavailable Octavio Lopez Attending Unavailable Octavio Lopez Attending Unavailable Amadou Liu Primary Care Unavailable Amadou Liu Referring Unavailable Amadou Liu Primary Care Unavailable Amadou Liu Attending Unavailable Calos, Amadou Primary Care Unavailable Anali Daniel Attending Unavailabl e Anali Daniel Referring Unavailabl e Allergies Allergy Classification Reported Allergen(s) Allergy Type Date of Onset Reaction(s) Facility (17 sources) azithromycin; Translations: [AZITHROMYCIN] drug allergy 5 Other: See Comments, Unknown [facility] [employer] Work Phone: Comment on above: per pt impairs kidne y function and she was unable to walk for 1 week (4 sources) NKDA drug allergy 3 [facility] [employer] [facility] Work Phone: (9 sources) Pravastatin Drug Allergy 1 mylagias [facility] (2 sources) Isosorbide; Translations: [ISOSORBIDE MONONITRATE] Drug Allergy 5 Intolerance [facility] Work Phone: (1 source) Erythromycin; Translations: [erythromycin] Drug Allergy [facility] (1 source) Pravastatin Drug Allergy 5 [facility] Repository Medications Current Medications Medication Drug Class(es) Dates Sig (Normalized) Sig (Original) amLODIPine 5 mg oral tablet (20 sources) Dihydropyridine Calcium Channel Brandon Start: 09-11-2024 take 2.5 mg by mouth once daily Amlodipine (Norvasc) 5 mg tablet Active 2.5 mg PO daily 30 September 11, 2024 4:06pm Start: 06-21-2024 End: 09-11-2024 take 1 tablet by mouth once daily Amlodipine (Norvasc) 5 mg tablet Discontinued 5 mg PO daily 03 09June 21, 2024 12:00am September 11, 2024 4:07pm Start: 01-17-2024 End: 02-22-2024 take 1 tablet by mouth once daily Amlodipine 2.5 mg tablet Discontinued 2.5 mg PO daily January 17, 2024 1:00am February 22, 2024 11:34am Start: 01-10-2024 End: 01-10-2024 take 1 tablet by mouth once daily Amlodipine 5 mg tablet Discontinued 5 mg PO .COMPLEX 30 11 January 10, 2024 4:17pm January 10, 2024 11:06pm 5 mg orally daily at noon; Start: 11-08-2023 End: 11-29-2023 take 1 tablet by mouth once daily Amlodipine (Norvasc) 2.5 mg tablet Discontinued 2.5 mg PO DAILY 30 30 0 November 08, 2023 12:00am November 29, 2023 11:49am Start: 06-30-2023 End: 08-16-2023 take 1 tablet by mouth once daily Amlodipine 2.5 mg tablet Discontinued 2.5 mg PO DAILY 90 3 June 30, 2023 12:00am August 16, 2023 8:30am Start: 01-23-2023 End: 02-09-2023 take 1 tablet by mouth once daily Amlodipine 5 mg tablet Discontinued 5 mg PO DAILY 90 3 January 25, 2023 9:58am February 09, 2023 [...] tablet Discontinued 5 mg PO DAILY 60 0 December 13, 2017 12:00am January 25, 2019 11:09am apixaban 2.5 mg oral tablet (14 sources) Factor Xa Inhibitor Start: 07-09-2021 End: [...] One tablet by mouth daily ATORVASTATIN CALCIUM [id number] Octavio Lopez MD carvedilol 12.5 mg oral [...] 1 tablet by mouth twice daily at mealtime, then take 3.125 tablets by mouth twice daily Carvedilol 3.125 mg tablet Discontinued 3.125 mg PO TWICE A DAY 180 February 23, 2023 1:00am January 10, 2024 3:44pm Dose decreased back to 3.125 bid must administer with a meal/food Start: 01-25-2023 End: 02-23-2023 take 1 tablet by mouth twice daily at mealtime Carvedilol 6.25 mg tablet Discontinued 6.25 mg PO TWICE A DAY 180 January 25, 2023 9:59am February 23, 2023 12:20pm Dose increased for high BP must administer with a meal/food Start: 01-07-2020 End: 01-25-2023 take 1 tablet by mouth twice daily at mealtime Carvedilol 3.125 mg tablet Discontinued 3.125 mg PO TWICE A DAY 180 June 02, 2022 2:55pm January 25, 2023 10:00am must administer with a meal/food cholecalciferol 0.125 mg oral capsule (10 sources) Vitamin D Start: 12-12-2017 take 1 capsule by mouth once daily Cholecalciferol (Vitamin D3) 5,000 UNIT capsule Active 5000 U PO DAILY December 12, 2017 12:00am SUPPLEMENT clopidogrel 75 mg oral tablet (20 sources) P2Y12 Platelet Inhibitor Start: 02-22-2024 End: 03-12-2024 take 1 tablet by mouth once daily Clopidogrel 75 mg tablet Active 75 mg PO daily 90 March 12, 2024 2:46pm Start: 07-23-2013 End: 08-02-2013 PLAVIX 75 MG TABS 4 tablets by mouth today, then 1 tablet by mouth daily CLOPIDOGREL BISULFATE [id number] Anali Daniel PA-C desoximetasone 2.5 mg/ml topical cream (14 sources) Corticosteroid Start: 09-16-2021 End: 02-09-2023 Desoximetasone 0.25 % cream Active 1 NMA TOPICAL DAILY as needed for Fill as courtesy until pt obtains new Primary DrNelli 15 February 09, 2023 10:44am 24 hr dilTIAZem hydrochloride 120 mg extended release oral capsule (2 sources) Calcium Channel Brandon Start: 08-28-2014 take 1 capsule by mouth once daily diltiazem CD (CARDIZEM CD, CARTIA XT) 120 mg 24 hr capsule Indications: Chest pain , Hypertension Take 1 capsule by mouth once daily. 30 capsule 3 08/28/2014 Active Start: 08-26-2014 take 1 capsule by [facility] once daily diltiazem CD (CARDIZEM CD, CARTIA XT) 180 mg 24 hr capsule Indications: Chest pain Take 1 capsule by mouth once daily. 90 capsule 3 08/26/2014 Active famotidine 10 mg oral tablet (7 sources) Histamine-2 Receptor Antagonist Start: 12-06-2022 take 1 tablet by mouth once as needed for gastroesophageal reflux disease Famotidine (Pepcid Ac) 10 mg tablet Active 10 mg PO ONCE as needed for gerd December 06, 2022 12:00am ubidecarenone 200 mg oral capsule (10 sources) Start: 12-12-2017 take 10 capsules by mouth once daily Coenzyme Q10 200 MG capsule Active 200 mg PO DAILY December 12, 2017 12:00am SUPPLEMENT take 10 capsules by mouth once d aily coenzyme Q10 100 mg cap Take 100 mg by mouth once daily. Active valsartan 160 mg oral tablet (13 sources) Angiotensin 2 Receptor Brandon Start: 09-25-2024 Valsartan 160 mg tablet Active 80 mg PO TWICE A DAY 180 September 25, 2024 2:04pm Start: 02-22-2024 End: 09-25-2024 take 1 tablet by mouth twice daily Valsartan 160 mg tablet Discontinued 160 mg PO TWICE A DAY 180 3 March 12, 2024 2:46pm September 25, 2024 2:05pm Completed/Discontinued Medications Medication Drug Class(es) Dates Sig (Normalized) Sig (Original) aspirin 81 mg chewable tablet (20 sources) Nonsteroidal Anti-inflammatory Drug Start: 08-20-2014 End: 07-26-2019 take 1 tablet by mouth once daily Aspirin 81 MG tablet,chewable Discontinued 81 mg PO DAILY August 20, 2014 12:00am July 26, 2019 9:58am Start: 11-11-2010 take 1 tablet by tomasa th once daily ASPIRIN 81 MG TABS One tablet by mouth daily ASPIRIN [id number] Nicole Kaleigh Vaughan Start: 11-11-2010 take 1 tablet by tomasa th once daily ASPIRIN 81 MG TABS One tablet by mouth daily ASPIRIN [id number] Nicole Kaleigh Vaughan Start: 11-11-2010 take 1 tablet by tomasa th once daily ASPIRIN EC 81 MG TBEC One tablet by mouth daily ASPIRIN [id number] Marsha Auguste, RN cinnamon bark 500 mg oral capsule (9 sources) Start: 12-12-2017 End: 01-25-2019 take 1 capsule by mouth twice daily Cinnamon Bark 500 MG capsule Discontinued 500 mg PO TWICE A DAY December 12, 2017 12:00am January 25, 2019 11:11am CHOLESTEOL cloNIDine hydrochloride 0.1 mg oral tablet (6 sources) Central alpha-2 Adrenergic Agonist Start: 01-23-2024 End: 02-22-2024 Clonidine Hcl 0.1 mg tablet Discontinued 0.1 mg PO AT BEDTIME as needed for hypertensive emergency 7 0 January 23, 2024 1:00am February 22, 2024 11:34am Take if BP systolic > 190 mmHG 0.8 ml enoxaparin sodium 100 mg/ml prefilled syringe (10 sources) Low Molecular Weight Heparin Start: 07-23-2013 End: 08-02-2013 LOVENOX 80 MG/0.8ML SOLN inject 0.8 mg (1 syringe) sc twice daily today, tomorrrow and Tuesday ENOXAPARIN SODIUM [id number] Ozzie Vasquez MD Start: 07-23-2013 LOVENOX 80 MG/ 0.8ML SOLN inject 0.8 mg (1 syringe) sc twice daily today, and Tuesday ENOXAPARIN SODIUM [id number] Ozzie Vasquez MD Start: 07-23-2013 End: 08-02-2013 LOVENOX 80 MG/0.8ML SOLN inj ect 0.8 mg (1 syringe) sc twice daily today, and Tuesday ENOXAPARIN SODIUM [id number] Anali Daniel PA-C ezetimibe 10 mg oral tablet (7 sources) Dietary Cholesterol Absorption Inhibitor Start: 12-06-2022 End: 02-09-2023 take 1 tablet by mouth once daily Ezetimibe (Zetia) 10 mg tablet Discontinued 10 mg PO DAILY 03 02December 06, 2022 12:00am February 09, 2023 10:25am garlic preparation 300 mg oral tablet (9 sources) Non-Standardized Food Allergenic Extract Start: 07-10-2018 End: 01-25-2019 take 300 mg by mouth once daily Garlic Discontinued 300 MG PO DAILY July 10, 2018 9:49am January 25, 2019 11:11am Start: 07-10-2018 End: 01-25-2019 take 1 tablet by mouth once daily Garlic tablet Discontinued 300 mg PO DAILY July 10, 2018 12:00am January 25, 2019 11:11am Start: 07-10-2018 End: 01-25-2019 take 300 mg by mouth once daily Garlic Discontinued 30 0 MG PO DAILY July 09, 2018 11:00pm January 25, 2019 10:11am Grape Seed Extract (9 sources) Start: 11-20-2019 End: 11-22-2019 take 50 mg by mouth once daily Grape Seed Extract Discontinued 50 MG PO DAILY November 20, 2019 8:42pm November 22, 2019 9:53am Start: 11-20-2019 End: 11-22-2019 take 1 tablet by mouth once daily Grape Seed Extract 50 MG tablet Discontinued 50 mg PO DAILY November 20, 2019 12:00am November 22, 2019 9:53am SUPPLEMENT Start: 11-20-2019 End: 11-22-2019 take 1 tablet by mouth once daily Grape Seed Extract 50 MG tablet Discontinued 50 mg PO DAILY November 20, 2019 12:00am November 22, 2019 9:53am Start: 11-20-2019 End: 11-22-2019 take 50 mg by mouth once daily Grape Seed Extract Disc ontinued 50 MG PO DAILY November 19, 2019 11:00pm November 22, 2019 8:53am hydroCHLOROthiazide 12.5 mg oral tablet (20 sources) Thiazide Diuretic Start: 12-06-2020 End: 01-12-2021 take 1 tablet by mouth once daily Hydrochlorothiazide 12.5 mg tablet Discontinued 12.5 mg PO DAILY 30 December 06, 2020 12:00am January 12, 2021 9:32am Start: 04-13-2016 End: 06-01-2017 take 1 tablet by mouth once daily Hydrochlorothiazide 25 MG tablet Discontinued 25 mg PO DAILY 30 April 13, 2016 1:00am June 01, 2017 9:29am 24 hr isosorbide mononitrate 30 mg extended release oral tablet (19 sources) Start: 01-25-2019 End: 06-18-2019 take 1 tablet by mouth once daily, then take 1 tablet by mouth every twenty-four hours Isosorbide Mononitrate 30 mg tablet extended release 24 hr Discontinued 30 mg PO DAILY January 25, 2019 1:00am June 18, 2019 10:44am Start: 04-11-2014 End: 12-04-2014 take 1 tablet by mouth once daily IMDUR 30 MG [id number] One tablet by mouth daily ISOSORBIDE MONONITRATE [id number] Octavio Lopez MD Start: 04-11-2014 End: 12-04-2014 take 1 tablet by mouth once daily IMDUR 30 MG [id number] One tablet by mouth daily ISOSORBIDE MONONITRATE [id number] Octavio Lopez MD Start: 04-11-2014 take 1 tablet by tomasa th once daily IMDUR 30 MG [id number] One tablet by mouth daily ISOSORBIDE MONONITRATE [id number] Octavio Lopez MD lisinopril 10 mg oral tablet (20 sources) Angiotensin Converting Enzyme Inhibitor Start: 01-10-2024 End: 02-04-2024 take 2 tablets by mouth twice daily Lisinopril 10 mg tablet Discontinued 20 mg PO TWICE A DAY 60 January 10, 2024 4:18pm February 04, 2024 5:34pm Start: 11-29-2023 End: 01-10-2024 take 1 tablet by mouth twice daily Lisinopril 10 mg tablet Discontinued 10 mg PO TWICE A DAY 60 January 09, 2024 9:56am January 10, 2024 4:18pm Start: 12-09-2021 End: 12-06-2022 take 1 tablet by mouth once daily Lisinopril 10 mg tablet Discontinued 10 mg PO DAILY 180 December 09, 2021 11:23am December 06, 2022 8:54am BP Start: 09-22-2020 End: 12-09-2021 take 1 tablet by mouth twice daily Lisinopril 10 mg tablet Discontinued 10 mg PO TWICE A DAY 180 March 17, 2021 5:38pm December 09, 2021 11:28am BP Start: 01-16-2020 End: 09-22-2020 take 1 tablet by mouth once daily at bedtime Lisinopril 10 mg tablet Discontinued 10 mg PO TWICE A DAY January 16, 2020 2:57pm September 22, 2020 8:56am BP 10 mg PO qhs: may take bid if SBP 160 or >; Start: 01-07-2020 End: 01-16-2020 take 1 tablet by mouth at bedtime Lisinopril 10 mg tablet Discontinued 10 mg PO AT BEDTIME January 16, 2020 2:54pm January 16, 2020 2:57pm BP Start: 07-26-2019 End: 01-07-2020 take 2 tablets by mouth once daily Lisinopril 10 mg tablet Discontinued 20 mg PO DAILY July 26, 2019 12:00am January 07, 2020 5:53pm BP Start: 07-26-2019 End: 01-07-2020 take 20 mg by mouth once daily Lisinopril Discontinued 20 MG PO DAILY July 25, 2019 11:00pm January 07, 2020 4:53pm Start: 09-19-2017 End: 06-18-2019 take 1 tablet by mouth twice daily Lisinopril 10 mg tablet Discontinued 10 mg PO TWICE A DAY 180 September 28, 2018 4:41pm June 18, 2019 10:44am Start: 07-19-2017 End: 09-19-2017 take 2 tablets by mouth twice daily Lisinopril 10 MG tablet Discontinued 20 mg PO TWICE A DAY July 19, 2017 12:01pm September 19, 2017 1:35pm Start: 07-19-2017 End: 09-19-2017 take 20 mg by mouth twice daily Lisinopril Discontinue d 20 MG PO TWICE A DAY July 19, 2017 11:01am September 19, 2017 12:35pm Start: 03-17-2016 End: 07-19-2017 take 1 tablet by mouth twice daily Lisinopril 10 MG tablet Discontinued 10 mg PO TWICE A DAY 60 April 13, 2016 1:00am July 19, 2017 12:02pm Start: 07-20-2013 take 1 tablet by tomasa th once daily LISINOPRIL 10 MG TABS One tablet by mouth daily LISINOPRIL [id number] Octavio Lopez MD Start: 07-20-2013 take 0.5 tablet by m out once daily LISINOPRIL 10 MG TABS 1/2 tablet by mouth daily LISINOPRIL [id number] Shirley Jewell RN Start: 07-20-2013 LISINOPRIL 20 MG TABS one tablet in the evening LISINOPRIL [id number] Octavio Lopez MD Start: 11-11-2010 End: 02-21-2012 take 1 tablet by mouth once daily LISINOPRIL 10 MG TABS One tablet by mouth daily LISINOPRIL [id number] Don Elliott MD 24 hr metoprolol succinate 50 mg extended release oral tablet (10 sources) beta-Adrenergic Brandon Start: 07-20-2013 End: 08-01-2013 take 1 tablet by mouth once daily TOPROL XL 50 MG [id number] One tablet by mouth daily METOPROLOL SUCCINATE [id number] Octavio Lopez MD Start: 07-20-2013 End: 08-01-2013 take 1 tablet by mouth once daily TOPROL XL 50 MG [id number] One tablet by mouth daily METOPROLOL SUCCINATE [id number] Shirley Jewell RN Start: 07-20-2013 take 1 tablet by tomasa th once daily TOPROL XL 50 MG [id number] One tablet by mouth daily METOPROLOL SUCCINATE [id number] Octavio Lopez MD Multivitamin tablet (6 sources) Start: 08-16-2023 End: 01-10-2024 Multivitamin tablet Discontinued 1 {tbl} PO DAILY August 16, 2023 12:00am January 10, 2024 11:07pm nitroglycerin 0.4 mg sublingual tablet (20 sources) Nitrate Vasodilator Start: 12-13-2017 End: 06-19-2020 Nitroglycerin Discontinued 0.4 MG SL Q5M June 19, 2020 7:58am June 19, 2020 8:01am Start: 05-30-2017 End: 06-19-2020 Nitroglycerin 0.4 mg tablet, sublingual Discontinued 0.4 mg SL Q5M as needed for ANGINA 30 0 December 13, 2017 1:56pm June 19, 2020 8:58am Start: 05-30-2017 End: 12-13-2017 Nitroglycerin (Nitrostat) 0. 4 mg tablet, sublingual Discontinued 0.4 MG SL Q5M May 29, 2017 11:00pm December 13, 2017 12:56pm Start: 11-11-2010 NITROGLYCERIN 0.4 MG/HR PT24 1 tablet under tongue every 5 min up to 3 X NITROGLYCERIN [id number] Octavio Lopez MD Start: 11-11-2010 NITROSTAT 0.4 MG SUBL 1 tablet under tongue every 5 min up to 3 X NITROGLYCERIN [id number] Octavio Lopez MD pravastatin sodium 40 mg oral tablet (18 sources) HMG-CoA Reductase Inhibitor Start: 04-12-2016 End: 06-01-2017 take 1 tablet by mouth at bedtime Pravastatin 40 MG tablet Discontinued 40 mg PO AT BEDTIME April 12, 2016 1:00am June 01, 2017 9:29am rosuvastatin calcium 20 mg oral tablet (20 sources) HMG-CoA Reductase Inhibitor Start: 02-22-2024 End: 06-21-2024 take 1 tablet by mouth once daily Rosuvastatin 20 mg tablet Discontinued 20 mg PO daily February 22, 2024 1:00am June 21, 2024 8:47am Start: 01-12-2021 End: 07-09-2021 take 1 tablet by mouth once daily Rosuvastatin (Crestor) 5 mg tablet Discontinued 5 mg PO DAILY January 12, 2021 1:00am July 09, 2021 8:34am Start: 11-11-2010 End: 02-15-2011 take 1 tablet by mouth every other day CRESTOR 5 MG TABS 1 tablet by mouth every other day ROSUVASTATIN CALCIUM [id number] Nicole Vaughan Turmeric extract (9 sources) Start: 01-25-2019 End: 09-22-2020 take 400 mg by mouth once daily Turmeric Discontinued 400 MG PO DAILY January 25, 2019 11:12am September 22, 2020 8:33am Start: 01-25-2019 End: 09-22-2020 take 1 capsule by mouth once daily Turmeric 400 mg capsule Discontinued 400 mg PO DAILY 0 January 25, 2019 1:00am September 22, 2020 8:33am SUPPLEMENT Start: 01-25-2019 End: 09-22-2020 take 1 capsule by mouth once daily Turmeric 400 mg capsule Discontinued 400 mg PO DAILY January 25, 2019 1:00am September 22, 2020 8:33am Start: 01-25-2019 End: 09-22-2020 take 400 mg by mouth once daily Turmeric Discontinued 400 MG PO DAILY January 25, 2019 12:00am September 22, 2020 7:33am warfarin sodium 4 mg oral tablet (20 sources) Vitamin K Antagonist Start: 01-12-2021 End: 07-09-2021 take 1 tablet by mouth once daily Warfarin 4 mg tablet Discontinued 4 mg PO DAILY 90 January 12, 2021 11:08am July 09, 2021 8:33am blood thinner Start: 01-12-2021 End: 07-09-2021 take 0.5 mg by mouth once daily Warfarin 1 mg tablet Discontinued 0.5 mg PO DAILY 45 January 12, 2021 1:00am July 09, 2021 8:33am Start: 01-12-2021 End: 07-09-2021 take 0.5 mg by mouth once daily Warfarin Discontinued 0.5 MG PO DAILY 45 January 12, 2021 12:00am July 09, 2021 7:33am Start: 07-23-2013 COUMADIN 5 MG TABS (HOLD for heart cath)managed by Dr. Crooks WARFARIN SODIUM [id number] Shirley Jewell RN Start: 06-12-2013 End: 01-12-2021 take 4.5 mg by mouth once daily Warfarin 4 mg tablet Discontinued 4.5 mg PO DAILY 90 January 12, 2021 9:47am January 12, 2021 11:08am blood thinner Start: 06-12-2013 End: 01-12-2021 take 4.5 mg by mouth once daily Warfarin Discontinued 4.5 MG PO DAILY January 12, 2021 8:47am January 12, 2021 10:08am Start: 11-11-2010 End: 07-20-2013 COUMADIN 5 MG TABS managed b y Dr. Crooks WARFARIN SODIUM [id number] Octavio Lopez MD Problems Active Problems Problem Classification Problem Date Documented Da te Episodic/Chronic Coronary atherosclerosis and other heart disease (20 sources) Coronary arteriosclerosis; Translations: [Atherosclerotic heart disease of [place] coronary artery without angina pectoris] Onset: 11-11-2010 Resolved: 11-14-2014 11-14-2014 Chronic Deficiency and other anemia (6 sources) Anemia; Translations: [Anemia, unspecified] 06-05-2024 Episodic Disorders of lipid metabolism (20 sources) Hyperlipidemia; Translations: [Hyperlipidemia, unspecified] Onset: 11-11-2010 11-11-2010 Chronic E Codes: Fall (6 sources) Fall; Translations: [Unspecified fall, initial encounter] 06-05-2024 Episodic Comment on above: 6 weeks ago Essential hypertension (20 sources) Hypertensive disorder; Translations: [Essential hypertension] Onset: 11-11-2010 11-11-2010 Chronic Headache; including migraine (9 sources) Headache; Translations: [Headache] 12-08-2021 Episodic Heart valve disorders (20 sources) Aortic stenosis, non-rheumatic ; Translations: [Nonrheumatic aortic (valve) stenosis] Onset: 02-09-2024 Chronic Comment on above: [facility]. Hypertension with complications and secondary hypertension (9 sources) Hypertensive emergency; Translations: [Hypertensive emergency] 04-05-2020 Chronic Nonspecific chest pain (20 sources) Chest discomfort; Translations: [Chest pain] Onset: 07-20-2013 Resolved: 11-14-2014 07-20-2013 Episodic Osteoarthritis (9 sources) Arthritis; Translations: [Unspecified osteoarthritis, unspecified site] 02-29-2020 Chronic Other aftercare (9 sources) Anticoagulant control - finding; Translations: [Encounter for therapeutic drug level monitoring] 12-08-2021 Episodic Other circulatory disease (1 source) Other specified symptoms and signs involving the circulatory and respiratory systems; Translations: [Other specified symptoms and signs involving the circulatory and respiratory systems] Onset: 10-01-2024 Episodic Other diseases of veins and lymphatics (6 sources) Venous stasis; Translations: [Other specified disorders of veins] 02-12-2024 Episodic Other nutritional; endocrine; and metabolic disorders (14 sources) Body mass index (BMI) 31.0-31.9, adult; Translations: [Body mass index (BMI) 33.0-33.9, adult] Onset: 12-29-2012 Resolved: 11-14-2014 11-25-2016 Chronic Other nutritional; endocrine; and metabolic disorders (3 sources) Body mass index (BMI) 32.0-32.9, adult; Translations: [Body mass index (BMI) 32.0-32.9, adult] Onset: 07-10-2014 12-03-2015 Chronic Other nutritional; endocrine; and metabolic disorders (9 sources) Body mass index (BMI) 33.0-33.9, adult; Translations: [Body mass index (BMI) 33.0-33.9, adult] Onset: 12-29-2012 Resolved: 11-14-2014 12-29-2012 Chronic Other nutritional; endocrine; and metabolic disorders (3 sources) Body mass index (BMI) 34.0-34.9, adult; Translations: [Body mass index (BMI) 34.0-34.9, adult] Onset: 07-10-2014 07-10-2014 Chronic Other nutritional; endocrine; and metabolic disorders (8 sources) Obesity; Translations: [Obesity, unspecified] 12-08-2021 Chronic Other upper respiratory infections (1 source) Other chronic sinusitis; Translations: [Other chronic sinusitis] Onset: 01-12-2024 Chronic Other upper respiratory infections (8 sources) Viral upper respiratory tract infection; Translations: [Acute upper respiratory infection, unspecified] 03-18-2022 Episodic Spondylosis; intervertebral disc disorders; other back problems (6 sources) Backache; Translations: [Dorsalgia, unspecified] 06-05-2024 Episodic Sprains and strains (9 sources) Strain of flexor muscle of hip; Translations: [Strain of muscle, fascia and tendon of left hip, initial encounter] 02-29-2020 Episodic Unclassified (2 sources) Placement of stent in coronary artery ; Translations: [Presence of coronary angioplasty implant and graft] Onset: 11-11-2010 12-03-2015 Unclassified (3 sources) Long-term drug therapy; 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] Onset: 11-11-2010 11-11-2010 Viral infection (9 sources) Disease caused by 2019-nCoV; Translations: [COVID-19] 08-26-2019 Episodic Past or Other Problems Problem Classification Problem Date Documented Da te Episodic/Chronic Coronary atherosclerosis and other heart disease (13 sources) Presence of coronary angioplasty implant and graft; Translations: [Coronary angioplasty status] Onset: 06-19-2001 11-14-2014 Episodic Genitourinary symptoms and ill-defined conditions (7 sources) Malodorous urine; Translations: [Unspecified abnormal findings in urine] Onset: 12-22-2023 11-29-2023 Episodic Other aftercare (2 sources) Other nursing home (current) drug therapy; 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] Onset: 11-11-2010 11-11-2010 Episodic Other circulatory disease (5 sources) Elevated blood-pressure reading, without diagnosis of hypertension; Translations: [Elevated blood-pressure reading, without diagnosis of hypertension] Onset: 03-10-2016 03-10-2016 Episodic Other diseases of veins and lymphatics (1 source) Other specified disorders of veins; Translations: [Other specified disorders of veins] Onset: 03-06-2024 Episodic Other gastrointestinal disorders (1 source) Dysphagia, unspecified; Translations: [Dysphagia, unspecified] Onset: 03-29-2024 Episodic Other lower respiratory disease (10 sources) Dyspnea; Translations: [Shortness of breath] Onset: 07-03-2014 Resolved: 11-14-2014 07-03-2014 Episodic Phlebitis; thrombophlebitis and thromboembolism (20 sources) Thrombophlebitis; Translations: [Deep venous thrombosis] Onset: 11-11-2010 Resolved: 11-14-2014 11-11-2010 Episodic Comment on above: 15 years ago Residual codes; unclassified (1 source) Other specified health status; Translations: [Other drug allergy] Onset: 08-26-2014 08-26-2014 Episodic Unclassified (5 sources) Family history of stroke; Translations: [Family history of stroke] 08-02-2013 Episodic Results Test Name Value Interpretation Reference Range Facility Duplex ultrasound of renal a rtery reportOrdered By: Juan Antonio Alaniz on 09-25-2024 Study report [facility] [address] [place] [address] Renal Artery Duplex Ultrasound 09/25/24 0844 MR#: [id number] Acct: [id number] Name: GINA WORTHINGTON Rep #:[id number] : 1935 89 From: Juan Antonio Ibrahim Attending Dr: ANDREA Wills Status: REG CLI Ordering Dr: Anali Daniel PA Date: 09/25/24 Location: [facility] Sex: F C Admitted: Reason For Study Reason For Study: Labile HTN Right Renal Artery Left Renal Artery Right renal artery ostium 97.9/13.9 Left renal artery ostium 108.8/14.5 RSV/EDV. PSV/EDV. Right renal artery proximal 102.4/16.7 Left renal artery proximal PSV/EDV PSV/EDV. 163.7/21.1 . Right renal artery mid 109.4/18.7 Left renal artery mid 157.1/23.3 PSV/EDV. PSV/EDV . Right renal artery distal 101.4/11.8 Left renal artery distal 163/28.2 PSV/EDV. PSV/EDV. Right RAR 2.03. Left RAR 3.04. Right Renal Parenchyma Left Renal Parenchyma Upper Pole Medula 26.2/3.4 PSV/EDV. Left upper pole medulla 24.7/5 PSV/EDV . Right upper pole medulla EDR 0.1 . Left upper pole medulla EDR 0.2 . Right upper pole medulla R.I. 0.87 . Left upper pole medulla R.I. 0.80 . Upper Loi Cortx 13.3/3.4 PSV/EDV. UPCortex 15.5/4.4 PSV/EDV. Right upper pole cortex EDR 0.3 . Left upper pole cortex EDR 0.3 . Right upper pole cortex R.I. 0.74 . Left upper pole cortex R.I. 0.71 . Right lower Pole medulla 36/5.9 PSV/EDV . Left lower Pole medulla 24.1/5 PSV/EDV . Right lower pole medulla EDR 0.2 . Left lower pole medulla EDR 0.2 . Right lower pole medulla R.I. 0.84 . Left lower pole medulla R.I. 0.79 . Lower Pole Cortex 20/4.7 PSV/EDV. Lower Pole Cortx 18.5/5.6 PSV/EDV. Right lower pole cortex EDR 0.2 . Left lower pole cortex EDR 0.3 . Right lower pole cortex R.I. 0.77 . Left lower pole cortex R.I. 0.70 . Right Renal Hilar Left Renal Hilar Right Hilar avg 58.5/13 PSV/EDV. LTHilar avg 76.3/14.1 PSV/EDV . Right hilar acceleration time 60 m/sec. Left hilar acceleration time 60 m/sec. Right Renal Dimensions Left Renal Dimensions Right kidney size 9.27 cm . Left kidney size 9.42 cm . Right cortical dimension 1.37 cm . Left cortical dimension 1.36 cm . Aorta Proximal abdominal aorta 1.56 x 1.54 cm . Proximal abdominal aorta peak systolicvelocity is 53.8 cm/sec . Distal abdominal aorta 1.46 x 1.44 cm . Distal abdominal aorta peak systolic velocity is 75.4 cm/sec . VL/Renal Artery Duplex Ultrasound Interpretation Summary Right renal artery patent with normal velocities and no evidence of stenosis. Left renal artery patent with normal velocities and no evidence of stenosis. Right renal vein patent. Left renal vein patent. Right kidney normal in size. Left kidney normal in size. Ordering Physician: Anali Daniel Referring Physician: Amadou Liu Performed By: Rosa Arevalo Anton 09/25/24 1317 Date _ Juan Antonio Alaniz MD CC: Dr. Amadou Liu MD; ANDREA Wills ~ Date Dictated: 09/25/24843 Date Transcribed: 09/25/241316 Senior Paralegal: Signed [facility] Work Phone: Renal Artery Duplex Ultrasou ndon 09-25-2024 Renal Artery Duplex Ultrasound [facility] [address] [place] [address]. [place] [address] Renal Artery Duplex Ultrasound 09/25/24843 MR#: [id number] Acct: [id number] Name: GINA WORTHINGTON Rep #: [id number] : 1935 89 From: Juan Antonio Alaniz MD Attending Dr: ANDREA Wills Status: REG CLI Ordering Dr: Anali Daniel PA Date: 09/05 05/01 Location: [facility] Sex: F C Admitted: Reason For Study Reason For Study: Labile HTN Right Renal Artery Left Renal Artery Right renal artery ostium 97.9/13.9 Left renal artery ostium 108.8/14.5 RSV/EDV. PSV/EDV. Right renal artery proximal 102.4/16.7 Left renal artery proximal PSV/EDV PSV/EDV. 163.7/21.1 . Right renal artery mid 109.4/18.7 Left renal artery mid 157.1/23.3 PSV/EDV. PSV/EDV . Right renal artery distal 101.4/11.8 Left renal artery distal 163/28.2 PSV/EDV. PSV/EDV. Right RAR 2.03. Left RAR 3.04. Right Renal Parenchyma Left Renal Parenchyma Upper Pole Medula 26.2/3.4 PSV/EDV. Left upper pole medulla 24.7/5 PSV/EDV . Right upper pole medulla EDR 0.1 . Left upper pole medulla EDR 0.2 . Right upper pole medulla R.I. 0.87 . Left upper pole medulla R.I. 0.80 . Upper Loi Cortx 13.3/3.4 PSV/EDV. UP Cortex 15.5/4.4 PSV/EDV. Right upper pole cortex EDR 0.3 . Left upper pole cortex EDR 0.3 . Right upper pole cortex R.I. 0.74 . Left upper pole cortex R.I. 0.71 . Right lower Pole medulla 36/5.9 PSV/EDV . Left lower Pole medulla 24.1/5 PSV/EDV . Right lower pole medulla EDR 0.2 . Left lower pole medulla EDR 0.2 . Right lower pole medulla R.I. 0.84 . Left lower pole medulla R.I. 0.79 . Lower Pole Cortex 20/4.7 PSV/EDV. Lower Pole Cortx 18.5/5.6 PSV/EDV. Right lower pole cortex EDR 0.2 . Left lower pole cortex EDR 0.3 . Right lower pole cortex R.I. 0.77 . Left lower pole cortex R.I. 0.70 . Right Renal Hilar Left Renal Hilar Right Hilar avg 58.5/13 PSV/EDV. LT Hilar avg 76.3/14.1 PSV/EDV . Right hilar acceleration time 60 m/sec. Left hilar acceleration time 60 m/sec. Right Renal Dimensions Left Renal Dimensions Right kidney size 9.27 cm . Left kidney size 9.42 cm . Right cortical dimension 1.37 cm . Left cortical dimension 1.36 cm . Aorta Proximal abdominal aorta 1.56 x 1.54 cm . Proximal abdominal aorta peak systolic velocity is 53.8 cm/sec . Distal abdominal aorta 1.46 x 1.44 cm . Distal abdominal aorta peak systolic velocity is 75.4 cm/sec . VL/Renal Artery Duplex Ultrasound Interpretation Summary Right renal artery patent with normal velocities and no evidence of stenosis. Left renal artery patent with normal velocities and no evidence of stenosis. Right renal vein patent. Left renal vein patent. Right kidney normal in size. Left kidney normal in size. Ordering Physician: Anali Daniel Referring Physician: Amadou Liu Performed By: Rosa Arevalo RVAnton 09/25/24 1317 Date Juan Antonio Alaniz MD CC: Dr. Amadou Liu MD; ANDREA Wills Date Dictated: 09/25/2444 Date Transcribed: 09/25/24 1317 Senior Paralegal: Signed Normal [facility] Cardiology Visit Reporton Cardiology Visit Report [facility] [address] [place] [address] OFFICE VISIT Date of Service: 09/14/24 MR#: [id number] Acct: [id number] Name: GINA WORTHINGTON Rep #: [id number] : 1935 Provider: ANDREA Howard Age/Sex: 89/F Location: [facility] Status: Signed HPI HPI History of Present Illness Details: GINA WORTHINGTON, is an 89 F who presents to the office today for a cardiovascular visit. She has a history of coronary artery disease status post angioplasty and stenting of the right coronary artery in 2001, hypertension and DVT with IVC filter. She also has a history of valvular heart disease with aortic stenosis. She had an echocardiogram on 12/21/2023 that showed ejection fraction of 70%, severe aortic valve stenosis with a mean aortic valve gradient 49 mmHg. It was recommended to undergo a heart catheterization and referral to tertiary center for TAVR evaluation. She declined heart catheterization locally and wish to be referred to [facility] for further evaluation. Due to wait time, she contacted [facility] team and scheduled an appointment. She has completed chest CTA. She was referred to their valve team. She is established with the cardiothoracic department at [facility] on 01/31/2024. On 02/08/2024 patient underwent a diagnostic heart catheterization. Heart catheterization demonstrated left main no disease, LAD torturous calcified with 50% disease in the midsegment after the origin of the large diagonal, circumflex gives off to a couple of very small high OM's followed by 80% stenosis before the OM 3, RCA large dominant tortuous calcified with serial 70 to 80% lesion of the mid segment. Patient underwent stenting of the RCA with 2 stents. On 02/09/2024 patient underwent a TAVR replacement with a 27 mm Khan and avatar trans catheter heart valve. Postoperatively she was noted to have new left bundle branch block. Because of her age she was not discharged home on aspirin and felt that it would be okay to just discharge her home on Eliquis and Plavix. Patient called our office at month with concerns over high and low blood pressure readings. We decreased her amlodipine in half. She was also in the in the ER for accelerated blood pressure readings. She was treated with IV hydralazine. A few days ago she had chest pain, she did not take her Bp but did take any extra coreg. 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 Accompanied by: Self Is patient in pain?: No Allergies azithromycin Allergy (Severe, Verified 09/14/24 08:56) Other pravastatin Adverse Reaction (Severe, Verified 09/14/24 08:56) mylagias Medications ???Medication ???Instructions ???Recorded ???Confirmed ???Type cholecalciferol (vitamin D3) 125 5,000 unit PO DAILY SUPPLEMENT 10/2209/14/24 History mcg (5,000 unit) capsule coenzyme Q10 200 mg capsule 200 mg PO DAILY SUPPLEMENT 8 09/14/24 History nitroglycerin 0.4 mg sublingual 0.4 mg sublingual Q5M PRN ANGINA 0 06/19/20 09/14/24 Rx tablet #25 tabs famotidine 10 mg tablet (Pepcid AC) 10 mg PO ONCE PRN gerd 12/06/22 09/14/24 History desoximetasone 0.25 % topical cream 1 applic topical DAILY PRN Fill as 02/09/23 09/14/24 Rx courtesy until pt obtains new Primary DrNelli #15 grams apixaban 2.5 mg tablet (Eliquis) 2.5 mg PO BID #180 tabs 02/23/24 0 09/14/24 Rx carvedilol 12.5 mg tablet 12.5 mg PO BID #180 tabs 03/12/24 09/14/24 Rx clopidogrel 75 mg tablet 75 mg PO QDAY #90 tabs 03/12/24 Rx valsartan 160 mg tablet 160 mg PO BID #180 tabs 03/12/24 0 09/14/24 Rx amlodipine 5 mg tablet (Norvasc) 2.5 mg (1/2 x 5 mg) PO QDAY #30 09/14/24 Rx tabs Ejection fraction %: 60 Have you fallen in the past year?: No (lost footing and tripped x 1) PFSH Medical History Anemia Back pain GERD (gastroesophageal reflux disease) Obesity Deep vein thrombosis Essential (primary) hypertension Nonrheumatic aortic (valve) stenosis Hyperlipidemia Atherosclerotic heart disease of [place] coronary artery without angina pectoris Surgical History 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 Normal [facility] 12 Lead EKGon 08-23-2024 12 Lead EKG [facility] [address] [place] [address] 12 Lead EKG 08/23/24 0035 MR#: [id number] Acct: [id number] Name: GINA WORTHINGTON Rep #: [id number] : 1935 89 From: Pieter Cook MD Attending Dr: Status: DEP ER Ordering Dr: Ruiz Luo DO Date: 08/23/24 Location: ED Sex: F C Admitted: Test Reason : CP Blood Pressure : */* mmHG Vent. Rate : 69 BPM Atrial Rate : 69 BPM P-R Int : 188 ms QRS Dur : 88 ms QT Int : 404 ms P-R-T Axes : 49 35 51 degrees QTcB Int : 432 ms Normal sinus rhythm Normal ECG Confirmed by Pieter Cook ([id number]), editor index MOSES PALOMO ([id number]) on 08/28/2024 11:30:23 AM Referred By: JEANNE Confirmed By: Pieter Cook 08/28/24 1130 Date Pieter Cook MD CC: Dr. Amadou Liu MD; Ruiz Luo DO Signed Normal [facility] Absolute lymphocyte countOrd ered By: Ruiz Luo on 08-23-2024 Lymphocytes Auto (Unsp spec) [#/Vol] 1.16 10*3/uL 0.83-4.51 [facility] Absolute neutrophil countOrd ered By: Ruiz Luo on 08-23-2024 Neutrophils (Bld) [#/Vol] 2.4 10*3/uL 2.0-7.7 [facility] Anion gap in Serum or Plasma Ordered By: Ruiz Luo on 08-23-2024 Anion gap [Moles/Vol] 11 mmol/L - [facility] Automated lymphocyte count a s percentage of total leukocytesOrdered By: Ruiz Luo on 08-23-2024 Lymphocytes/100 WBC Auto (Unsp spec) 27.8 % [facility] BUN/creatinine ratioOrdered By: Ruiz Luo on 08-23-2024 Urea nitrogen/Creatinine [Mass ratio] 20.7 mg/mg High - [facility] Basic Metabolic Profile (BMP )on 08-23-2024 BUN/CRE 20.7 RATIO High - [facility] Comment on above: Performed By: #### L 501.4021, L500.2500, L100.0100 #### [facility] [address] [place], [address] Calcium [Mass/Vol] 9.5 mg/dL Normal 7.6-11.0 [facility] Comment on above: Performed By: #### L 501.4021, L500.2500, L100.0100 #### [facility] [address] [place], [address] Chloride [Moles/Vol] 102 mmol/L Normal 98-108 [facility] Comment on above: Performed By: #### L 501.4021, L500.2500, L100.0100 #### [facility] [address] [place], [address] CO2 [Moles/Vol] 23.9 mmol/L Normal 21.0-32.0 [facility] Comment on above: Performed By: #### L 501.4021, L500.2500, L100.0100 #### [facility] [address] [place], [address] Creatinine [Mass/Vol] 0.94 mg/dL Normal 0.70-1.20 [facility] Comment on above: Performed By: #### L 501.4021, L500.2500, L100.0100 #### [facility] [address] [place], [address] ECRCL 37.21 ml/min Low 50-250 [facility] Comment on above: Performed By: #### L 501.4021, L500.2500, L100.0100 #### [facility] [address] [place], [address] GAP 11 Normal 5-15 [facility] Comment on above: Performed By: #### L 501.4021, L500.2500, L100.0100 #### [facility] [address] [place], [address] GFR/1.73 sq M.predicted among non-blacks MDRD (S/P/Bld) [Vol rate/Area] 58 mL/min/{1.73_m2} Low >60 [facility] Comment on above: Result Comment: mL/m in/1.73m2 CKD-EPI Creatinine Equation (2020) Performed By: #### L 501.4021, L500.2500, L100.0100 #### [facility] [address] [place], [address] Glucose [Mass/Vol] 108 mg/dL High 70-99 [facility] Comment on above: Performed By: #### L 501.4021, L500.2500, L100.0100 #### [facility] [address] [place], [address] Potassium [Moles/Vol] 4.3 mmol/L Normal 3.3-5.1 [facility] Comment on above: Performed By: #### L 501.4021, L500.2500, L100.0100 #### [facility] [address] [place], [address] Sodium [Moles/Vol] 137 mmol/L Normal 133-145 [facility] Comment on above: Performed By: #### L 501.4021, L500.2500, L100.0100 #### [facility] [address] [place], [address] Urea nitrogen [Mass/Vol] 20 mg/dL High 4-19 [facility] Comment on above: Performed By: #### L 501.4021, L500.2500, L100.0100 #### [facility] [address] [place], [address] Basophil percentageOrdered B y: Ruiz Luo on 08-23-2024 Basophils/100 WBC (Bld) 0.7 % 0-1 [facility] CBC W/Diff, Automatedon 08-05 Absolute Lymph 1.16 X10 3/uL Normal 0.83-4.51 [facility] Comment on above: Performed By: #### L 501.4021, L500.2500, L100.0100 #### [facility] [address] [place], [address] Absolute Neut 2.4 X10 3/uL Normal 2.0-7.7 [facility] Comment on above: Performed By: #### L 501.4021, L500.2500, L100.0100 #### [facility] [address] [place], [address] Basophils/100 WBC (Bld) 0.7 % Normal 0-1 [facility] Comment on above: Performed By: #### L 501.4021, L500.2500, L100.0100 #### [facility] [address] [place], [address] Eosinophils/100 WBC (Bld) 1.7 % Normal 0-5 [facility] Comment on above: Performed By: #### L 501.4021, L500.2500, L100.0100 #### [facility] [address] [place], [address] Erythrocyte distribution width (RBC) [Ratio] 14.4 % Normal 11.6-14.6 [facility] Comment on above: Performed By: #### L 501.4021, L500.2500, L100.0100 #### [facility] [address] [place], [address] Hematocrit (Bld) [Volume fraction] 34.7 % Low 37-47 [facility] Comment on above: Performed By: #### L 501.4021, L500.2500, L100.0100 #### [facility] [address] [place], [address] Hemoglobin (Bld) [Mass/Vol] 11.6 g/dL Low 12.0-15.0 [facility] Comment on above: Performed By: #### L 501.4021, L500.2500, L100.0100 #### [facility] [address] [place], [address] IG% 0.500 Normal 0.0-0.9 [facility] Comment on above: Result Comment: IG% - Immature Granulocytes (promyelocytes, myelocytes and metamyelocytes) > 1% indicates that a LEFT SHIFT is Present. Performed By: #### L 501.4021, L500.2500, L100.0100 #### [facility] [address] [place], [address] Lymphocytes/100 WBC (Bld) 27.8 % Normal 19-41 [facility] Comment on above: Performed By: #### L 501.4021, L500.2500, L100.0100 #### [facility] [address] [place], [address] MCH (RBC) [Entitic mass] 32.7 pg High 27.0-32.0 [facility] Comment on above: Performed By: #### L 501.4021, L500.2500, L100.0100 #### [facility] [address] [place], [address] MCHC (RBC) [Mass/Vol] 33.4 g/dL Normal 32-36 [facility] Comment on above: Performed By: #### L 501.4021, L500.2500, L100.0100 #### [facility] [address] [place], [address] MCV (RBC) [Entitic vol] 97.7 fL Normal 81-99 [facility] Comment on above: Performed By: #### L 501.4021, L500.2500, L100.0100 #### [facility] [address] [place], [address] Monocytes/100 WBC (Bld) 10.8 % High 0-10 [facility] Comment on above: Performed By: #### L 501.4021, L500.2500, L100.0100 #### [facility] [address] [place], [address] Neutrophils/100 WBC (Bld) 58.5 % Normal 47-70 [facility] Comment on above: Performed By: #### L 501.4021, L500.2500, L100.0100 #### [facility] [address] [place], [address] Nucleated RBC (Bld) [#/Vol] 0 10*3/uL Normal 0-5 [facility] Comment on above: Performed By: #### L 501.4021, L500.2500, L100.0100 #### [facility] [address] [place], [address] Platelet mean volume (Bld) [Entitic vol] 11.2 fL Normal 6.2-12.0 [facility] Comment on above: Performed By: #### L 501.4021, L500.2500, L100.0100 #### [facility] [address] [place], [address] Platelets (Bld) [#/Vol] 203 10*3/uL Normal 150-450 [facility] Comment on above: Performed By: #### L 501.4021, L500.2500, L100.0100 #### [facility] [address] [place], [address] RBC (Bld) [#/Vol] 3.55 10*6/uL Low 4.2-5.[address] [facility] Comment on above: Performed By: #### L 501.4021, L500.2500, L100.0100 #### [facility] [address] [place], [address] RDW SD 52.3 fl High 35.1-43.9 [facility] Comment on above: Performed By: #### L 501.4021, L500.2500, L100.0100 #### [facility] [address] [place], [address] WBC (Bld) [#/Vol] 4.2 10*3/uL Low 4.4-11.0 [facility] Comment on above: Performed By: #### L 501.4021, L500.2500, L100.0100 #### [facility] [address] [place], [address] Carbon dioxide, total [Moles /volume] in Central venous bloodOrdered By: Ruiz Luo on 08-23-2024 CO2 [Moles/Vol] 23.9 mmol/L 21.0-32.0 [facility] Chloride assayOrdered By: Karey Luo on 08-23-2024 Chloride [Moles/Vol] 102 mmol/L 98-108 [facility] Emergency Department Summary on 08-23-2024 Emergency Department Summary [facility] Medical Records Department [address] [place] [address] Emergency Department Summary 08/23/24 MR#: [id number] Acct: [id number] Name: GINA WORTHINGTON Rep #: [id number] : 1935 89 From: Ruiz Luo DO PCP: Dr. Amadou Liu MD Status:DEP ER Location: ED HPI History of Present Illness Chief Complaint: Chest Pain Informant: patient and family Narrative Narrative: Patient is a 89-year-old female with past medical history of hypertension hyperlipidemia and CAD. She states that she has been taking her medications as directed. This evening she noticed a vague left-sided chest discomfort and checked her blood pressure and she states it was elevated at approximately 200. She denies any excessive stimulant use or illicit drug use. She states that because of her history of CAD and the fact that her blood pressure has been reading high despite her taking her medication she was concerned for a cardiac event and therefore comes in for evaluation [facility] Medical History Anemia Back pain GERD (gastroesophageal reflux disease) Obesity Deep vein thrombosis Essential (primary) hypertension Nonrheumatic aortic (valve) stenosis Hyperlipidemia Atherosclerotic heart disease of [place] coronary artery without angina pectoris Home Medications ???Medication ???Instructions ???Recorded ???Last Taken ???Type cholecalciferol (vitamin D3) 125 5,000 unit PO DAILY SUPPLEMENT 10/2211/20/19 History mcg (5,000 unit) capsule coenzyme Q10 200 mg capsule 200 mg PO DAILY SUPPLEMENT 8 11/20/19 History nitroglycerin 0.4 mg sublingual 0.4 mg sublingual Q5M PRN ANGINA 0 06/19/20 Unknown Rx tablet #25 tabs famotidine 10 mg tablet (Pepcid AC) 10 mg PO ONCE PRN gerd 12/06/22 Unknown History desoximetasone 0.25 % topical cream 1 applic topical DAILY PRN Fill as 02/09/23 Unknown Rx courtesy until pt obtains new Primary DrNelli #15 grams apixaban 2.5 mg tablet (Eliquis) 2.5 mg PO BID #180 tabs 02/23/24 U nknown Rx carvedilol 12.5 mg tablet 12.5 mg PO BID #180 tabs 03/12/24 Unknown Rx clopidogrel 75 mg tablet 75 mg PO QDAY #90 tabs 03/12/24 Un known Rx valsartan 160 mg tablet 160 mg PO BID #180 tabs 03/12/24 U nknown Rx amlodipine 5 mg tablet (Norvasc) 5 mg PO QDAY #30 tabs 06/21/24 Unk nown Rx Allergy/AdvReac Type Severity Reaction Status Date / Time azithromycin Allergy Severe Other Verified 08/23/24 00:34 pravastatin AdvReac Severe mylagias Verified 08/23/24 00:34 Family History Other CVA (cerebral vascular accident) Surgical History 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) Hx of cataract surgery History of left heart catheterization (07/26/13) History of coronary artery stent placement (06/19/01) Social History household members: none Smoking Status: Never smoker alcohol intake: current alcohol intake frequency: other substance use type: does not use caffeine: No ROS ROS ED Constitutional Constitutional ED: Denies chills or fever(s) Eyes Eyes: Denies blurry vision or change in vision ENT ENT ED: Denies sore throat Cardiovascular Cardiovascular: Reports chest pain; Denies palpitations or racing heartbeat Respiratory/Chest Respiratory/Chest: Denies cough or dyspnea Gastrointestinal Gastrointestinal: Denies abdominal pain, diarrhea, nausea or vomiting Genitourinary Genitourinary ED: Denies dysuria Musculoskeletal Musculoskeletal: Denies back pain or myalgias Integumentary Denies rash Neurologic Neurologic: Denies headache(s) or weakness Hematologic/Lymphati c Hematologic/Lymphati c: Reports easy bleeding and easy bruising EXAM Physical Exam Const Vital Signs: 08/23/24 00:32 08/23/24 00:35 08/23/24 02:19 Temperature 97.7 F L Temperature Source Oral Pulse Rate 74 64 Respiratory Rate 16 16 Respiratory Effort Normal Blood Pressure 159/121 H 165/76 H Blood Pressure Mean 133 105 Pulse Ox 98 97 Oxygen Delivery Method Room Air Room Air 08/23/24 03:05 08/23/24 03:05 Temperature 97.7 F L Temperature Source Pulse Rate 63 65 Respiratory Rate 16 16 Respiratory Effort Blood Pressure 139/58 H 139/58 H Blood Pressure Mean 85 85 Pulse Ox 97 98 Oxygen Delivery Method Room Air Positive well nourished and well developed General Appearance ED: well developed; Negative for pallor HEENT HEENT Narrative: Normocephalic atraumatic Eyes PERRL and EOMs intact bilaterally General Eye ED: Negative for scleral icterus Neck supple and no JVD Neck Narrative: No nuchal rigidity or meningeal signs Chest Wall palpati (more content not included)... Normal [facility] Eosinophil percentageOrdered By: Ruiz Luo on 08-23-2024 Eosinophils/100 WBC (Bld) 1.7 % 0-5 [facility] Erythrocyte distribution wid th ratioOrdered By: Ruiz Luo on 08-23-2024 Erythrocyte distribution width (RBC) [Ratio] 14.4 % 11.6-14.6 [facility] Erythrocyte distribution wid th standard deviationOrdered By: Ruiz Luo on 08-23-2024 Erythrocyte distribution width (RBC) [Ratio] 52.3 fl High 35.1-43.9 [facility] Glomerular filtration rate ( GFR) estimation/1.73 sq m using serum, plasma, or whole bOrdered By: Ruiz Luo on 08-23-2024 GFR/1.73 sq M.predicted among non-blacks MDRD (S/P/Bld) [Vol rate/Area] 58 mL/min/{1.73_m2} Low >60 [facility] Comment on above: mL/min/1.73m2 CKD-EP I Creatinine Equation (2020) Hematocrit Auto (Bld) [Volum e fraction]Ordered By: Ruiz Luo on 08-23-2024 Hematocrit (Bld) [Volume fraction] 34.7 % Low 37-47 [facility] Hemoglobin measurementOrdere d By: Ruiz Luo on 08-23-2024 Hemoglobin (Bld) [Mass/Vol] 11.6 g/dL Low 12.0-15.0 [facility] Immature granulocytes/100 WB C Auto (Bld)Ordered By: Ruiz Luo on 08-23-2024 Immature granulocytes/100 WBC (Bld) 0.500 % 0.0-0.9 [facility] Comment on above: IG% - Immature Granu locytes (promyelocytes, myelocytes and metamyelocytes) > 1% indicates that a LEFT SHIFT is Present. L499.0042on 08-23-2024 Trop T High Sen Normal <=14 [facility] Comment on above: Result Comment: Alecia llamas via OM: Ordered Performed By: #### L 499.0042 #### [facility] [address], [address] L501.4021on 08-23-2024 Trop T High Sen 12 ng/L Normal <=14 [facility] Comment on above: Performed By: #### L 501.4021, L500.2500, L100.0100 #### [facility] [address] [place], [address] MCV (mean corpuscular volume ) determinationOrdered By: Ruiz Luo on 08-23-2024 MCV (RBC) [Entitic vol] 97.7 fL 81-99 [facility] Mean corpuscular hemoglobin (MCH) determinationOrdered By: Ruiz Luo on 08-23-2024 MCH (RBC) [Entitic mass] 32.7 pg High 27.0-32.0 [facility] Mean corpuscular hemoglobin concentration (MCHC) determinationOrdered By: Ruiz Luo on 08-23-2024 MCHC (RBC) [Mass/Vol] 33.4 g/dL 32-36 [facility] Mean platelet volume determi nationOrdered By: Ruiz Luo on 08-23-2024 Platelet mean volume (Bld) [Entitic vol] 11.2 fL 6.2-12.0 [facility] Monocyte percentageOrdered B y: Ruiz Luo on 08-23-2024 Monocytes/100 WBC (Bld) 10.8 % High 0-10 [facility] Neutrophil percentageOrdered By: Ruiz Luo on 08-23-2024 Neutrophils/100 WBC (Bld) 58.5 % 47-70 [facility] Nucleated red blood cell per centageOrdered By: Ruiz Luo on 08-23-2024 Nucleated RBC/100 WBC (Bld) [Ratio] 0 % 0-5 [facility] Platelet countOrdered By: Karey Luo on 08-23-2024 Platelets (Bld) [#/Vol] 203 10*3/uL 150-450 [facility] Potassium measurement (mass/ volume)Ordered By: Ruiz Luo on 08-23-2024 Potassium (Unsp spec) [Mass/Vol] 4.3 mmol/L 3.3-5.1 [facility] RBC Auto (Bld) [#/Vol]Ordere d By: Ruiz Luo on 08-23-2024 RBC (Bld) [#/Vol] 3.55 10*6/uL Low 4.2-5.[address] [facility] Serum creatinine measurement (mass/volume)Ordered By: Ruiz Luo on 08-23-2024 Creatinine [Mass/Vol] 0.94 mg/dL 0.70-1.20 [facility] Serum glucose measurement (m ass/volume)Ordered By: Ruiz Luo on 08-23-2024 Glucose [Mass/Vol] 108 mg/dL High 70-99 [facility] Serum or plasma calcium bony urement (mass/volume)Ordered By: Ruiz Luo on 08-23-2024 Calcium [Mass/Vol] 9.5 mg/dL 7.6-11.0 [facility] Serum or plasma urea nitroge n measurement (mass/volume)Ordered By: Ruiz Luo on 08-23-2024 Urea nitrogen [Mass/Vol] 20 mg/dL High 4-19 [facility] Sodium levelOrdered By: Indio Luo on 08-23-2024 Sodium [Moles/Vol] 137 mmol/L 133-145 [facility] Troponin T.cardiac [Mass/vol ume] in Serum or Plasma by High sensitivity methodOrdered By: Ruiz Luo on 08-23-2024 Troponin T.cardiac High sensitivity method [Mass/Vol] 12 ng/L <14 [facility] White blood cell (WBC) count Ordered By: Ruiz Luo on 08-23-2024 WBC (Bld) [#/Vol] 4.2 10*3/uL Low 4.4-11.0 [facility] Echocardiogram study reportO rdered By: Octavio Lopez on 07-18-2024 Study report [facility] [address] [place] [address] Echo Complete 07/17/24904 MR#: [id number] Acct: [id number] Name: GINA WORTHINGTON Rep #:[id number] : 1935 89 From: Octavio Ibrahim Attending Dr: Anali Daniel PA Status: REG CLI Ordering Dr: Anali Daniel PA Date: 07/17/24 Location: CVS Sex: F C Admitted: Reason For Study Reason For Study: TAVR, Murmur Procedure This was a 2D Doppler, Color Flow transthoracic echocardiogram. Exam performed in department. Left Ventricle Normal LV size. Moderate concentric left ventricular hypertrophy. Sigmoid septum. The left ventricular ejection fraction is 60 %. No regional wall motion abnormalities noted. Right Ventricle Normal RV size. Normal systolic function. Atria The left atrium is severely enlarged. Normal right atrium. Mitral Valve There is moderate mitral annular calcification. Tricuspid Valve Normal tricuspid valve. Mild to moderate (1-2+) tricuspid valve insufficiency. Pulmonary artery systolic pressure is 40 mmHg. Aortic Valve Peak aortic valve gradient 12 mmHg. Mean aortic valve gradient 6 mmHg. Bioprosthetic aortic valve. Pulmonic Valve Normal pulmonic valve. Mild (1+) pulmonic valve insufficiency. Great Vessels Normal aortic root. The pulmonary artery is normal size. Inferior vena cava collapse with respiration. Pericardium/Pleural No pericardial effusion. MMode/2D Measurements & Calculations LVIDd: 3.2 cm IVSd: 1.6 cm LVOT diam: 1.9 cm LVIDs: 2.5 cm LVPWd: 1.4 cm LVOT area: 2.8 cm2 RVDd: 3.3 cm FS: 22.9 % Ao root diam: 3.5 cm LAV(MOD-bp): 95.5 ml LVAd ap4: 24.9 cm2 LAV(MOD-bp) Indexed: 56.5 ml/m2 LVLd ap4: 7.6 cm LAV(MOD-sp2): 72.4 ml EDV(MOD-sp4): 67.9 ml LAV(MOD-sp4): 127.1 ml EDV(sp4-el): 69.5 ml LVAs ap4: 14.4 cm2 LVLs ap4: 6.9 cm ESV(MOD-sp4): 26.6 ml ESV(sp4-el): 25.5 ml EF(MOD-sp4): 60.8 % EF(sp4-el): 63.3 % LVAd ap2: 22.7 cm2 SV(MOD-sp4): 41.3 ml SV(MOD-sp2): 36.8 ml LVLd ap2: 7.3 cm SI(MOD-sp4): 24.4 ml/m2 SI(MOD-sp2): 21.7 ml/m2 EDV(MOD-sp2): 58.0 ml EDV(sp2-el): 59.7 ml LVAs ap2: 12.6 cm2 LVLs ap2: 6.3 cm ESV(MOD-sp2): 21.2 ml ESV(sp2-el): 21.4 ml EF(MOD-sp2): 63.4 % SV(sp4-el): 44.0 ml LA dimension(2D): 4.5 cm LA A4 area: 33.8 cm2 RA A4 area: 16.9 cm2 TAPSE: 1.9 cm Time Measurements MV dec time: 0.20 sec Doppler Measurements & Calculations MV E max adrian: 110.4 cm/sec Lat Peak E' Adrian: 5.6 cm/sec Med Peak E' Adrian: 5.4 cm/sec MV A max adrian: 111.2 cm/sec E/E' lat: 19.6 E/E' med: 20.4 MV E/A: 0.99 MV V2 max: 123.6 cm/sec MV P1/2t max adrian: 122.3 cm/sec Ao V2 max: 172.7 cm/sec MV max P.1 mmHg MV P1/2t: 69.2 msec Ao max P.0 mmHg MV V2 mean: 77.4 cm/sec Ao V2 mean: 111.5 cm/sec MV mean P.7 mmHg MV dec slope: 517.6 cm/sec2 Ao mean P.7 mmHg MV V2 VTI: 39.5 cm MVA(P1/2t): 3.2 cm2 Ao V2 VTI: 43.3 cm AV (velocity ratio): 0.82 MVA(VTI): 2.5 cm2 GARRET(I,D): 2.3 cm2 GARRET(V,D): 2.3 cm2 AI max adrian: 439.3 cm/sec LV V1 max: 143.8 cm/sec SV(LVOT): 98.0 ml AI max P.2 mmHg LV V1 max P.3 mmHg AI dec slope: 227.4 cm/sec2 LV V1 mean P.6 mmHg AI P1/2t: 565.7 msec LV V1 mean: 100.6 cm/sec LV V1 VTI: 35.5 cm PA V2 max: 76.0 cm/sec PI end-d adrian: 125.4 cm/sec TR max adrian: 303.1 cm/sec TR max P.7 mmHg ECHO/Echo Complete Interpretation Summary Normal LV size. Moderate concentric left ventricular hypertrophy. The left ventricular ejection fraction is 60 %. Bioprosthetic aortic valve. Mean aortic valve gradient 6 mmHg. The left atrium is severely enlarged. Pulmonary artery systolic pressure is 40 mmHg. Ordering Physician: Anali Daniel Referring Physician: Amadou Liu Performed By: Linsey Macedo RDCS 07/18/24 1510 Date _ Octavio Lopez MD CC: Dr. Amadou Liu MD; ANDREA Wills ~ Date Dictated: 07/17/24904 Date Transcribed: 07/18/241509 Senior Paralegal: Signed [facility] Work Phone: Echo Completeon 07-17-2024 Echo Complete [facility] [place] [address] [place] [address] Echo Complete 07/17/2405 MR#: [id number] Acct: [id number] Name: GINA WORTHINGTON Rep #: [id number] : 1935 89 From: Octavio Lopez MD Attending Dr: ANDREA Wills Status: REG CLI Ordering Dr: Anali Daniel PA Date: 07/05 05/29 Location: [facility] Sex: F C Admitted: Reason For Study Reason For Study: TAVR, Murmur Procedure This was a 2D Doppler, Color Flow transthoracic echocardiogram. Exam performed in department. Left Ventricle Normal LV size. Moderate concentric left ventricular hypertrophy. Sigmoid septum. The left ventricular ejection fraction is 60 %. No regional wall motion abnormalities noted. Right Ventricle Normal RV size. Normal systolic function. Atria The left atrium is severely enlarged. Normal right atrium. Mitral Valve There is moderate mitral annular calcification. Tricuspid Valve Normal tricuspid valve. Mild to moderate (1-2+) tricuspid valve insufficiency. Pulmonary artery systolic pressure is 40 mmHg. Aortic Valve Peak aortic valve gradient 12 mmHg. Mean aortic valve gradient 6 mmHg. Bioprosthetic aortic valve. Pulmonic Valve Normal pulmonic valve. Mild (1+) pulmonic valve insufficiency. Great Vessels Normal aortic root. The pulmonary artery is normal size. Inferior vena cava collapse with respiration. Pericardium/Pleural No pericardial effusion. MMode/2D Measurements Calculations LVIDd: 3.2 cm IVSd: 1.6 cm LVOT diam: 1.9 cm LVIDs: 2.5 cm LVPWd: 1.4 cm LVOT area: 2.8 cm2 RVDd: 3.3 cm FS: 22.9 % Ao root diam: 3.5 cm LAV(MOD-bp): 95.5 ml LVAd ap4: 24.9 cm2 LAV(MOD-bp) Indexed: 56.5 ml/m2 LVLd ap4: 7.6 cm LAV(MOD-sp2): 72.4 ml EDV(MOD-sp4): 67.9 ml LAV(MOD-sp4): 127.1 ml EDV(sp4-el): 69.5 ml LVAs ap4: 14.4 cm2 LVLs ap4: 6.9 cm ESV(MOD-sp4): 26.6 ml ESV(sp4-el): 25.5 ml EF(MOD-sp4): 60.8 % EF(sp4-el): 63.3 % LVAd ap2: 22.7 cm2 SV(MOD-sp4): 41.3 ml SV(MOD-sp2): 36.8 ml LVLd ap2: 7.3 cm SI(MOD-sp4): 24.4 ml/m2 SI(MOD-sp2): 21.7 ml/m2 EDV(MOD-sp2): 58.0 ml EDV(sp2-el): 59.7 ml LVAs ap2: 12.6 cm2 LVLs ap2: 6.3 cm ESV(MOD-sp2): 21.2 ml ESV(sp2-el): 21.4 ml EF(MOD-sp2): 63.4 % SV(sp4-el): 44.0 ml LA dimension(2D): 4.5 cm LA A4 area: 33.8 cm2 RA A4 area: 16.9 cm2 TAPSE: 1.9 cm Time Measurements MV dec time: 0.20 sec Doppler Measurements Calculations MV E max adrian: 110.4 cm/sec Lat Peak E' Adrian: 5.6 cm/sec Med Peak E' Adrian: 5.4 cm/sec MV A max adrian: 111.2 cm/sec E/E' lat: 19.6 E/E' med: 20.4 MV E/A: 0.99 MV V2 max: 123.6 cm/sec MV P1/2t max adrian: 122.3 cm/sec Ao V2 max: 172.7 cm/sec MV max P.1 mmHg MV P1/2t: 69.2 msec Ao max P.0 mmHg MV V2 mean: 77.4 cm/sec Ao V2 mean: 111.5 cm/sec MV mean P.7 mmHg MV dec slope: 517.6 cm/sec2 Ao mean P.7 mmHg MV V2 VTI: 39.5 cm MVA(P1/2t): 3.2 cm2 Ao V2 VTI: 43.3 cm AV (velocity ratio): 0.82 MVA(VTI): 2.5 cm2 GARRET(I,D): 2.3 cm2 GARRET(V,D): 2.3 cm2 AI max adrian: 439.3 cm/sec LV V1 max: 143.8 cm/sec SV(LVOT): 98.0 ml AI max P.2 mmHg LV V1 max P.3 mmHg AI dec slope: 227.4 cm/sec2 LV V1 mean P.6 mmHg AI P1/2t: 565.7 msec LV V1 mean: 100.6 cm/sec LV V1 VTI: 35.5 cm PA V2 max: 76.0 cm/sec PI end-d adrian: 125.4 cm/sec TR max adrian: 303.1 cm/sec TR max P.7 mmHg ECHO/Echo Complete Interpretation Summary Normal LV size. Moderate concentric left ventricular hypertrophy. The left ventricular ejection fraction is 60 %. Bioprosthetic aortic valve. Mean aortic valve gradient 6 mmHg. The left atrium is severely enlarged. Pulmonary artery systolic pressure is 40 mmHg. Ordering Physician: Anali Daniel Referring Physician: Amadou Liu Performed By: Linsey Macedo, RDSOMMER 07/18/24 1510 Date Octavio Lopez MD CC: Dr. Amadou Liu MD; ANDREA Wills Date Dictated: 07/17/24 09 Date Transcribed: 07/18/24 151 Transcriptioni (more content not included)... Normal [facility] Cardiology Visit Reporton Cardiology Visit Report [facility] [address] [place] [address] OFFICE VISIT Date of Service: 06/21/24 MR#: [id number] Acct: [id number] Name: GINA WORTHINGTON Rep #: [id number] : 1935 Provider: ANDREA Howard Age/Sex: 89/F Location: [facility] Status: Signed HPI HPI History of Present Illness Details: GINA WORTHINGTON, is an 89 F who presents to the office today for a cardiovascular visit. She has a history of coronary artery disease status post angioplasty and stenting of the right coronary artery in 2001, hypertension and DVT with IVC filter. She also has a history of valvular heart disease with aortic stenosis. She had an echocardiogram on 12/21/2023 that showed ejection fraction of 70%, severe aortic valve stenosis with a mean aortic valve gradient 49 mmHg. It was recommended to undergo a heart catheterization and referral to tertiary center for TAVR evaluation. She declined heart catheterization locally and wish to be referred to [facility] for further evaluation. Due to wait time, she contacted [facility] team and scheduled an appointment. She has completed chest CTA. She was referred to their valve team. She is established with the cardiothoracic department at [facility] on 01/31/2024. On 02/08/2024 patient underwent a diagnostic heart catheterization. Heart catheterization demonstrated left main no disease, LAD torturous calcified with 50% disease in the midsegment after the origin of the large diagonal, circumflex gives off to a couple of very small high OM's followed by 80% stenosis before the OM 3, RCA large dominant tortuous calcified with serial 70 to 80% lesion of the mid segment. Patient underwent stenting of the RCA with 2 stents. On 02/09/2024 patient underwent a TAVR replacement with a 27 mm Khan and avatar trans catheter heart valve. Postoperatively she was noted to have new left bundle branch block. Because of her age she was not discharged home on aspirin and felt that it would be okay to just discharge her home on Eliquis and Plavix. Pt has been having high Bp readings. She also notes occasional CP and just not feeling right. Intake Vital Signs 06/05/24 11:36 06/21/24 08:41 Height 5 ft 2 in 5 ft 2 in Weight: 156 lb 154 lb BMI 28.5 28.1 BP 176/82 H 206/89 H Blood Pressure Location Lt brachial Lt brachial Position Sitting Sitting Respiration 16 16 Pulse 66 65 Pulse Source NIBP NIBP Comment Forgot to take BP meds last night Intake Visit Reasons: BP Issues Help Desk Engineer Required: No Accompanied by: Daughter Is patient in pain?: No Allergies azithromycin Allergy (Severe, Verified 06/21/24 08:46) Other pravastatin Adverse Reaction (Severe, Verified 06/21/24 08:46) mylagias Medications ???Medication ???Instructions ???Recorded ???Confirmed ???Type cholecalciferol (vitamin D3) 125 5,000 unit PO DAILY SUPPLEMENT 10/2206/21/24 History mcg (5,000 unit) capsule coenzyme Q10 200 mg capsule 200 mg PO DAILY SUPPLEMENT 8 06/21/24 History nitroglycerin 0.4 mg sublingual 0.4 mg sublingual Q5M PRN ANGINA 0 06/19/20 06/21/24 Rx tablet #25 tabs famotidine 10 mg tablet (Pepcid AC) 10 mg PO ONCE PRN gerd 12/06/22 06/21/24 History desoximetasone 0.25 % topical cream 1 applic topical DAILY PRN Fill as 02/09/23 06/21/24 Rx courtesy until pt obtains new Primary DrNelli #15 grams apixaban 2.5 mg tablet (Eliquis) 2.5 mg PO BID #180 tabs 02/23/24 0 06/21/24 Rx carvedilol 12.5 mg tablet 12.5 mg PO BID #180 tabs 03/12/24 06/21/24 Rx clopidogrel 75 mg tablet 75 mg PO QDAY #90 tabs 03/12/24 Rx valsartan 160 mg tablet 160 mg PO BID #180 tabs 03/12/24 0 06/21/24 Rx amlodipine 5 mg tablet (Norvasc) 5 mg PO QDAY #30 tabs 06/21/24 Rx Ejection fraction %: 55 Have you fallen in the past year?: Yes (April) PFSH Medical History Anemia Back pain GERD (gastroesophageal reflux disease) Obesity Deep vein thrombosis Essential (primary) hypertension Nonrheumatic aortic (valve) stenosis Hyperlipidemia Atherosclerotic heart disease of [place] coronary artery without angina pectoris Surgical History 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 Normal [facility] Absolute lymphocyte countOrd ered By: Anali Daniel on 06-05-2024 Lymphocytes Auto (Unsp spec) [#/Vol] 1.48 10*3/uL 0.83-4.51 [facility] Absolute neutrophil countOrd ered By: Anali Daniel on 06-05-2024 Neutrophils (Bld) [#/Vol] 3.1 10*3/uL 2.0-7.7 [facility] Automated lymphocyte count a s percentage of total leukocytesOrdered By: Anali Daniel on 06-05-2024 Lymphocytes/100 WBC Auto (Unsp spec) 27.8 % 19-41 [facility] Basophil percentageOrdered B y: Anali Daniel on 06-05-2024 Basophils/100 WBC (Bld) 0.8 % 0-1 W [facility] CBC W/Diff, Automatedon - Absolute Lymph 1.48 X10 3/uL Normal 0.83-4.51 [facility] Comment on above: Performed By: #### L 100.0100 ####[facility] [address] [place], [address] Absolute Neut 3.1 X10 3/uL Normal 2.0-7.7 [facility] Comment on above: Performed By: #### L 100.0100 ####[facility] [address] [place], [address] Basophils/100 WBC (Bld) 0.8 % Normal 0-1 W [facility] Comment on above: Performed By: #### L 100.0100 ####[facility] [address] [place], [address] Eosinophils/100 WBC (Bld) 1.9 % Normal 0-5 [facility] Comment on above: Performed By: #### L 100.0100 ####[facility] [address] [place], [address] Erythrocyte distribution width (RBC) [Ratio] 14.5 % Normal 11.6-14.6 [facility] Comment on above: Performed By: #### L 100.0100 ####[facility] [address] [place], [address] Hematocrit (Bld) [Volume fraction] 33.0 % Low 37-47 [facility] Comment on above: Performed By: #### L 100.0100 ####[facility] [address] [place], [address] Hemoglobin (Bld) [Mass/Vol] 10.7 g/dL Low 12.0-15.0 [facility] Comment on above: Performed By: #### L 100.0100 ####[facility] [address] [place], [address] IG% 0.400 Normal 0.0-0.9 [facility] Comment on above: Result Comment: IG% - Immature Granulocytes (promyelocytes, myelocytes and metamyelocytes) > 1% indicates that a LEFT SHIFT is Present. Performed By: #### L 100.0100 ####[facility] [address] [place], [address] Lymphocytes/100 WBC (Bld) 27.8 % Normal 19-41 [facility] Comment on above: Performed By: #### L 100.0100 ####[facility] [address] [place], [address] MCH (RBC) [Entitic mass] 31.8 pg Normal 27.0-32.0 [facility] Comment on above: Performed By: #### L 100.0100 ####[facility] [address] [place], [address] MCHC (RBC) [Mass/Vol] 32.4 g/dL Normal 32-36 [facility] Comment on above: Performed By: #### L 100.0100 ####[facility] [address] [place], [address] MCV (RBC) [Entitic vol] 98.2 fL Normal 81-99 [facility] Comment on above: Performed By: #### L 100.0100 ####[facility] [address] [place], [address] Monocytes/100 WBC (Bld) 10.2 % High 0-10 W [facility] Comment on above: Performed By: #### L 100.0100 ####[facility] [address] [place], [address] Neutrophils/100 WBC (Bld) 58.9 % Normal 47-70 [facility] Comment on above: Performed By: #### L 100.0100 ####[facility] [address] [place], [address] Nucleated RBC (Bld) [#/Vol] 0 10*3/uL Normal 0-5 [facility] Comment on above: Performed By: #### L 100.0100 ####[facility] [address] [place], [address] Platelet mean volume (Bld) [Entitic vol] 11.0 fL Normal 6.2-12.0 [facility] Comment on above: Performed By: #### L 100.0100 ####[facility] [address] [place], [address] Platelets (Bld) [#/Vol] 197 10*3/uL Normal 150-450 [facility] Comment on above: Performed By: #### L 100.0100 ####[facility] [address] [place], [address] RBC (Bld) [#/Vol] 3.36 10*6/uL Low 4.2-5.[address] [facility] Comment on above: Performed By: #### L 100.0100 ####[facility] [address] [place], [address] RDW SD 51.4 fl High 35.1-43.9 [facility] Comment on above: Performed By: #### L 100.0100 ####[facility] [address] [place], [address] WBC (Bld) [#/Vol] 5.3 10*3/uL Normal 4.4-11.0 [facility] Comment on above: Performed By: #### L 100.0100 ####[facility] [address] [place], [address] Cardiology Visit Reporton Cardiology Visit Report [facility] [address] [place] [address] OFFICE VISIT Date of Service: 06/05/24 MR#: [id number] Acct: [id number] Name: GINA WORTHINGTON Rep #: [id number] : 1935 Provider: ANDREA Howard Age/Sex: 89/F Location[facility] Status: Signed HPI HPI History of Present Illness Details: GINA WORTHINGTON, is an 89 F who presents to the office today for a cardiovascular visit. She has a history of coronary artery disease status post angioplasty and stenting of the right coronary artery in 2001, hypertension and DVT with IVC filter. She also has a history of valvular heart disease with aortic stenosis. She had an echocardiogram on 12/21/2023 that showed ejection fraction of 70%, severe aortic valve stenosis with a mean aortic valve gradient 49 mmHg. It was recommended to undergo a heart catheterization and referral to tertiary center for TAVR evaluation. She declined heart catheterization locally and wish to be referred to [facility] for further evaluation. Due to wait time, she contacted [facility] team and scheduled an appointment. She has completed chest CTA. She was referred to their valve team. She is established with the cardiothoracic department at [facility] on 01/31/2024. On 02/08/2024 patient underwent a diagnostic heart catheterization. Heart catheterization demonstrated left main no disease, LAD torturous calcified with 50% disease in the midsegment after the origin of the large diagonal, circumflex gives off to a couple of very small high OM's followed by 80% stenosis before the OM 3, RCA large dominant tortuous calcified with serial 70 to 80% lesion of the mid segment. Patient underwent stenting of the RCA with 2 stents. On 02/09/2024 patient underwent a TAVR replacement with a 27 mm Khan and avatar trans catheter heart valve. Postoperatively she was noted to have new left bundle branch block. Because of her age she was not discharged home on aspirin and felt that it would be okay to just discharge her home on Eliquis and Plavix. She feels that she is more fatigued. She did not do cardiac rehab while she was in [facility]. She does not have any chest pain or worsening SOB. She does sometimes has dizziness. She has not had any syncope. She does not check her Bp at home routinely, but has been finding it on the higher end. She did not take her medications last night. Intake Vital Signs 02/22/24 10:30 06/05/24 11:36 Height 5 ft 2 in 5 ft 2 in Weight: 156 lb BMI 28.5 BP 176/82 H Blood Pressure Location Lt brachial Position Sitting Respiration 16 Pulse 66 Pulse Source NIBP Comment Forgot to take BP meds last night Intake Visit Reasons: 4 M Help Desk Engineer Required: No Accompanied by: Daughter Is patient in pain?: No Allergies azithromycin Allergy (Severe, Verified 06/05/24 11:40) Other pravastatin Adverse Reaction (Severe, Verified 06/05/24 11:40) mylagias Medications ???Medication ???Instructions ???Recorded ???Confirmed ???Type cholecalciferol (vitamin D3) 125 5,000 unit PO DAILY SUPPLEMENT 10/2206/05/24 History mcg (5,000 unit) capsule coenzyme Q10 200 mg capsule 200 mg PO DAILY SUPPLEMENT 8 06/05/24 History nitroglycerin 0.4 mg sublingual 0.4 mg sublingual Q5M PRN ANGINA 0 06/19/20 06/05/24 Rx tablet #25 tabs famotidine 10 mg tablet (Pepcid AC) 10 mg PO ONCE PRN gerd 12/06/22 06/05/24 History desoximetasone 0.25 % topical cream 1 applic topical DAILY PRN Fill as 02/09/23 06/05/24 Rx courtesy until pt obtains new Primary DrNelli #15 grams rosuvastatin 20 mg tablet 20 mg PO QDAY 02/22/24 06/05/24 Hi story apixaban 2.5 mg tablet (Eliquis) 2.5 mg PO BID #180 tabs 02/23/24 0 06/05/24 Rx carvedilol 12.5 mg tablet 12.5 mg PO BID #180 tabs 03/12/24 06/05/24 Rx clopidogrel 75 mg tablet 75 mg PO QDAY #90 tabs 03/12/24 Rx valsartan 160 mg tablet 160 mg PO BID #180 tabs 03/12/24 0 06/05/24 Rx Ejection fraction %: 70 Have you fallen in the past year?: Yes (Trip and fall) PFSH Medical History (Updated 06/05/24 @ 11:43 by Miriam Cho) Back pain GERD (gastroesophageal reflux disease) Obesity Deep vein thrombosis Essential (primary) hypertension Nonrheumatic aortic (valve) stenosis Hyperlipidemia Atherosclerotic heart disease of [place] coronary artery without angina pectoris Surgical History (Updated 02/23/24 @ 11:13 by Anali Daniel PA, PA) 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 Normal [facility] Eosinophil percentageOrdered By: Anali Daniel on 06-05-2024 Eosinophils/100 WBC (Bld) 1.9 % 0-5 [facility] Erythrocyte distribution wid th (RBC) [Ratio]Ordered By: Anali Daniel on 06-05-2024 Erythrocyte distribution width (RBC) [Entitic vol] 51.4 fL High 35.1-43.9 [facility] Erythrocyte distribution wid th ratioOrdered By: Anali Daniel on 06-05-2024 Erythrocyte distribution width (RBC) [Ratio] 14.5 % 11.6-14.6 [facility] Erythrocyte distribution wid th standard deviationOrdered By: Anali Daniel on 06-05-2024 Erythrocyte distribution width (RBC) [Ratio] 51.4 fl High 35.1-43.9 [facility] Hematocrit Auto (Bld) [Volum e fraction]Ordered By: Anali Daniel on 06-05-2024 Hematocrit (Bld) [Volume fraction] 33.0 % Low 37-47 [facility] Hemoglobin measurementOrdere d By: Anali Daniel on 06-05-2024 Hemoglobin (Bld) [Mass/Vol] 10.7 g/dL Low 12.0-15.0 [facility] Immature granulocytes/100 WB C Auto (Bld)Ordered By: Anali Daniel on 06-05-2024 Immature granulocytes/100 WBC (Bld) 0.400 % 0.0-0.9 [facility] Comment on above: IG% - Immature Granu locytes (promyelocytes, myelocytes and metamyelocytes) > 1% indicates that a LEFT SHIFT is Present. Lymphocytes Auto (Unsp spec) [#/Vol]Ordered By: Anali Daniel on 06-05-2024 Lymphocytes (Bld) [#/Vol] 1.48 10*3/uL 0.83-4.51 [facility] Lymphocytes/100 WBC Auto (Un sp spec)Ordered By: Anali Daniel on 06-05-2024 Lymphocytes/100 WBC (Bld) 27.8 % 19-41 [facility] MCV (mean corpuscular volume ) determinationOrdered By: Anali Daniel on 06-05-2024 MCV (RBC) [Entitic vol] 98.2 fL 81-99 [facility] Mean corpuscular hemoglobin (MCH) determinationOrdered By: Anali Daniel on 06-05-2024 MCH (RBC) [Entitic mass] 31.8 pg 27.0-32.0 [facility] Mean corpuscular hemoglobin concentration (MCHC) determinationOrdered By: Anali Daniel on 06-05-2024 MCHC (RBC) [Mass/Vol] 32.4 g/dL 32-36 [facility] Mean platelet volume determi nationOrdered By: Anali Daniel on 06-05-2024 Platelet mean volume (Bld) [Entitic vol] 11.0 fL 6.2-12.0 [facility] Monocyte percentageOrdered B y: Anali Daniel on 06-05-2024 Monocytes/100 WBC (Bld) 10.2 % High 0-10 [facility] Neutrophil percentageOrdered By: Anali Daniel on 06-05-2024 Neutrophils/100 WBC (Bld) 58.9 % 47-70 [facility] Nucleated red blood cell per centageOrdered By: Anali Daniel on 06-05-2024 Nucleated RBC/100 WBC (Bld) [Ratio] 0 % 0-5 [place] [facility] Platelet countOrdered By: Jessica post María on 06-05-2024 Platelets (Bld) [#/Vol] 197 10*3/uL 150-450 [facility] RBC Auto (Bld) [#/Vol]Ordere d By: Analiavelino Daniel on 06-05-2024 RBC (Bld) [#/Vol] 3.36 10*6/uL Low 4.2-5.[address] [facility] White blood cell (WBC) count Ordered By: Anali Daniel on 06-05-2024 WBC (Bld) [#/Vol] 5.3 10*3/uL 4.4-11.0 [facility] Echo Completeon 03-12-2024 Echo Complete [facility] [address] [place] [address] Echo Complete 03/12/24 1308 MR#: [id number] Acct: [id number] Name: GINA WORTHINGTON Rep #: [id number] : 1935 88 From: Octavio Lopez MD Attending Dr: TETE LANG Status: REG CLI Ordering Dr: TETE LANG Date: 03/12/24 Location: [facility] Sex: F C Admitted: Reason For Study: POST OP TAVR Procedure This was a 2D Doppler, Color Flow transthoracic echocardiogram. Myocardial strain analysis was performed in this exam to aid in the assessment of cardiac function. Exam performed in department. Left Ventricle Normal LV size. Moderate concentric left ventricular hypertrophy. Left ventricular systolic function is normal. The left ventricular ejection fraction is 55 %. No regional wall motion abnormalities noted. Right Ventricle Normal RV size. Normal systolic function. Atria The left atrium is moderately enlarged. The right atrium is moderately enlarged. Mitral Valve There is moderate mitral annular calcification. Mild (1+) eccentric mitral valve insufficiency. Tricuspid Valve Normal tricuspid valve. Mild (1+) tricuspid valve insufficiency. Pulmonary artery systolic pressure is 30 mmHg. Aortic Valve Peak aortic valve gradient 10 mmHg. Mean aortic valve gradient 6 mmHg. Bioprosthetic aortic valve. Pulmonic Valve Normal pulmonic valve. Great Vessels Calcified aortic root. The pulmonary artery is normal size. Inferior vena cava collapse with respiration. Pericardium/Pleural No pericardial effusion. MMode/2D Measurements Calculations LVIDd: 4.0 cm IVSd: 1.4 cm LVOT diam: 2.0 cm LVIDs: 2.1 cm LVPWd: 1.5 cm LVOT area: 3.1 cm2 RVDd: 3.5 cm FS: 46.9 % _ asc Aorta Diam: 2.8 cm LAV(MOD-bp): 85.2 ml LVAd ap4: 22.1 cm2 LAV(MOD-bp) Indexed: 51.6 ml/m2 LVLd ap4: 7.1 cm LAV(MOD-sp2): 94.4 ml EDV(MOD-sp4): 56.7 ml LAV(MOD-sp4): 73.8 ml EDV(sp4-el): 58.2 ml LVAs ap4: 10.8 cm2 LVLs ap4: 5.8 cm ESV(MOD-sp4): 17.5 ml ESV(sp4-el): 17.1 ml EF(MOD-sp4): 69.2 % EF(sp4-el): 70.7 % _ LVAd ap2: 21.6 cm2 SV(MOD-sp4): 39.2 ml SV(MOD-sp2): 32.7 ml LVLd ap2: 7.4 cm SI(MOD-sp4): 23.8 ml/m2 SI(MOD-sp2): 19.8 ml/m2 EDV(MOD-sp2): 51.7 ml EDV(sp2-el): 54.1 ml LVAs ap2: 11.8 cm2 LVLs ap2: 6.2 cm ESV(MOD-sp2): 19.0 ml ESV(sp2-el): 19.2 ml EF(MOD-sp2): 63.2 % _ SV(sp4-el): 41.1 ml Ao sinus diam: 2.8 cm LA A4 area: 23.8 cm2 _ LA dimension(2D): 4.4 cm RA A4 area: 13.3 cm2 TAPSE: 1.7 cm Time Measurements MV dec time: 0.32 sec Doppler Measurements Calculations MV E max adrian: 92.9 cm/sec Lat Peak E' Adrian: 5.0 cm/sec Med Peak E' Adrian: 5.8 cm/sec MV A max adrian: 125.7 cm/sec E/E' lat: 18.6 E/E' med: 16.1 MV E/A: 0.74 _ MV V2 max: 140.8 cm/sec Ao V2 max: 162.2 cm/sec MV max P.9 mmHg MV dec slope: 287.1 cm/sec2 Ao max P.6 mmHg MV V2 mean: 92.7 cm/sec Ao V2 mean: 111.7 cm/sec MV mean P.7 mmHg Ao mean P.5 mmHg MV V2 VTI: 40.2 cm Ao V2 VTI: 38.1 cm AV (velocity ratio): 0.69 MVA(VTI): 2.0 cm2 GARRET(I,D): 2.2 cm2 GARRET(V,D): 1.9 cm2 _ LV V1 max: 100.3 cm/sec SV(LVOT): 82.2 ml PA V2 max: 83.6 cm/sec LV V1 max P.0 mmHg LV V1 mean P.3 mmHg LV V1 mean: 72.0 cm/sec LV V1 VTI: 26.1 cm _ PI end-d adrian: 129.1 cm/sec TR max adrian: 262.7 cm/sec TR max P.6 mmHg ECHO/Echo Complete Interpretation Summary Normal LV size. Moderate concentric left ventricular hypertrophy. Left ventricular systolic function is normal. The left ventricular ejection fraction is 55 %. Mean aortic valve gradient 6 mmHg. Bioprosthetic aortic valve. Ordering Physician: JOEL LANG Referring Physician: JOEL LANG Performed By: Elvira Pro RDCS 03/12/24 1503 Date Octavio Lopez MD CC: Dr. Amadou Liu MD; JOEL LANG Date Dictated: 03/12/24 1308 Date Transcribed: 03/12/24 150 Senior Paralegal: Signed Normal [facility] Echocardiogram study reportO rdered By: Octavio Lopez on 03-12-2024 Study report [facility] [address] [place] [address] Echo Complete 03/12/24 1308 MR#: [id number] Acct: [id number] Name: GINA WORTHINGTON Rep #:[id number] : 1935 88 From: Octavio Ibrahim Attending Dr: TETE LANG Status: REG CLI Ordering Dr: TETE LANG [place] e: 03/12/24 Location: [facility] Sex: F C Admitted: Reason For Study: POST OP TAVR Procedure This was a 2D Doppler, Color Flow transthoracic echocardiogram. Myocardial strain analysis was performed in this exam to aid in the assessment of cardiac function. Exam performed in department. Left Ventricle Normal LV size. Moderate concentric left ventricular hypertrophy. Left ventricular systolic function is normal. The left ventricular ejection fraction is 55 %. No regional wall motion abnormalities noted. Right Ventricle Normal RV size. Normal systolic function. Atria The left atrium is moderately enlarged. The right atrium is moderately enlarged. Mitral Valve There is moderate mitral annular calcification. Mild (1+) eccentric mitral valveinsufficiency. Tricuspid Valve Normal tricuspid valve. Mild (1+) tricuspid valve insufficiency. Pulmonary artery systolic pressure is 30 mmHg. Aortic Valve Peak aortic valve gradient 10 mmHg. Mean aortic valve gradient 6 mmHg. Bioprosthetic aortic valve. Pulmonic Valve Normal pulmonic valve. Great Vessels Calcified aortic root. The pulmonary artery is normal size. Inferior vena cava collapse with respiration. Pericardium/Pleural No pericardial effusion. MMode/2D Measurements & Calculations LVIDd: 4.0 cm IVSd: 1.4 cm LVOT diam: 2.0 cm LVIDs: 2.1 cm LVPWd: 1.5 cm LVOT area: 3.1 cm2 RVDd: 3.5 cm FS: 46.9 % _ asc Aorta Diam: 2.8 cm LAV(MOD-bp): 85.2 ml LVAd ap4:22.1 cm2 LAV(MOD-bp) Indexed: 51.6 ml/m2 LVLd ap4:7.1 cm LAV(MOD-sp2): 94.4 ml EDV(MOD-sp4): 56.7 ml LAV(MOD-sp4): 73.8 ml EDV(sp4-el): 58.2 ml LVAs ap4:10.8 cm2 LVLs ap4:5.8 cm ESV(MOD-sp4): 17.5 ml ESV(sp4-el): 17.1 ml EF(MOD-sp4): 69.2 % EF(sp4-el): 70.7 % _ LVAd ap2: 21.6 cm2 SV(MOD-sp4): 39.2 ml SV(MOD-sp2): 32.7 ml LVLd ap2: 7.4 cm SI(MOD-sp4): 23.8 ml/m2 SI(MOD-sp2): 19.8 ml/m2 EDV(MOD-sp2): 51.7 ml EDV(sp2-el): 54.1 ml LVAs ap2: 11.8 cm2 LVLs ap2: 6.2 cm ESV(MOD-sp2): 19.0 ml ESV(sp2-el): 19.2 ml EF(MOD-sp2): 63.2 % _ SV(sp4-el): 41.1 ml Ao sinus diam: 2.8 cm LA A4 area: 23.8 cm2 _ LA dimension(2D): 4.4 cm RA A4 area: 13.3 cm2 TAPSE: 1.7 cm Time Measurements MV dec time: 0.32 sec Doppler Measurements & Calculations MV E max adrian: 92.9 cm/sec Lat Peak E' Adrian: 5.0 cm/sec Med Peak E' Adrian: 5.8 cm/sec MV A max adrian: 125.7 cm/sec E/E' lat: 18.6 E/E' med: 16.1 MV E/A: 0.74 _ MV V2 max: 140.8 cm/sec Ao V2 max: 162.2 cm/sec MV max P.9 mmHg MV dec slope: 287.1 cm/sec2 Ao max P.6 mmHg MV V2 mean: 92.7 cm/sec Ao V2 mean: 111.7 cm/sec MV mean P.7 mmHg Ao mean P.5 mmHg MV V2 VTI: 40.2 cm Ao V2 VTI: 38.1 cm AV (velocity ratio): 0.69 MVA(VTI): 2.0 cm2 GARRET(I,D): 2.2 cm2 GARRET(V,D): 1.9 cm2 _ LV V1 max: 100.3 cm/sec SV(LVOT): 82.2 ml PA V2 max: 83.6 cm/sec LV V1 max P.0 mmHg LV V1 mean P.3 mmHg LV V1 mean: 72.0 cm/sec LV V1 VTI: 26.1 cm _ PI end-d adrian: 129.1 cm/sec TR max adrian: 262.7 cm/sec TR max P.6 mmHg ECHO/Echo Complete Interpretation Summary Normal LV size. Moderate concentric left ventricular hypertrophy. Left ventricular systolic function is normal. The left ventricular ejection fraction is 55 %. Mean aortic valve gradient 6 mmHg. Bioprosthetic aortic valve. Ordering Physician: JOEL LANG Referring Physician: JOEL LANG Performed By: Elvira Pro RDCS 03/12/24 1503 Date _ Octavio Lopez MD CC: Dr. Amadou Liu MD; JOEL LANG ~ Date Dictated: 03/12/24 1308 Date Transcribed: 03/12/24 1503 Senior Paralegal: Signed [facility] Work Phone: Urine Cultureon 02-27-2024 URC Presumptive E. coli [place] Count >100,000 Enterococcus faecalis Enterococcus faecalis Presumptive E. coli: REACTION Ampicillin Islt ALEJO 4 S Ampicillin+Sulbac Islt ALEJO <=2 Cefepime Islt ALEJO <=0.12 S cefTRIAXone Islt ALEJO <=0.25 S Ciprofloxacin Islt ALEJO <=0.06 S B-Lactamase Extended Susc Islt NEG Gentamicin Islt ALEJO <=1 S levoFLOXacin Islt ALEJO <=0.12 S Meropenem Islt ALEJO <=0.25 S Nitrofurantoin Islt ALEJO <=16 S Pip+Tazo Islt ALEJO <=4 S TMP SMX Islt ALEJO <=20 S Enterococcus faecalis: REACTION Ampicillin Islt ALEJO <=2 S Ciprofloxacin Islt ALEJO <=0.5 Gentamicin Synergy Susc Islt SYN-S S levoFLOXacin Islt ALEJO 1 S Linezolid Islt ALEJO 2 S Nitrofurantoin Islt ALEJO <=16 S Streptomycin High Pot Susc Islt SYN-S S Tetracycline Islt ALEJO >=16 R Vancomycin Islt ALEJO 2 S Normal [facility] Comment on above: Performed By: #### M 100.2204 #### [facility] [place], [place], [id number] Urine cultureOrdered By: Maryam Liu on 02-24-2024 Bacteria identified Cx Nom (U) Presumptive E. coli Abnormal [facility] Bacteria identified Cx Nom (U) Enterococcus faecalis Abnormal [facility] Cardiology Visit Reporton Cardiology Visit Report [facility] [address] [place], [place] [address] OFFICE VISIT Date of Service: 02/22/24 MR#: [id number] Acct: [id number] Name: GINA WORTHINGTON Rep #: [id number] : 1935 Provider: ANDREA Howard Age/Sex: 88/F Location: [facility] Status: Signed HPI HPI History of Present Illness Details: GINA WORTHINGTON, is an 88 F who presents to the office today for a cardiovascular visit. She has a history of coronary artery disease status post angioplasty and stenting of the right coronary artery in 2001, hypertension and DVT with IVC filter. She also has a history of valvular heart disease with aortic stenosis. She had an echocardiogram on 12/21/2023 that showed ejection fraction of 70%, severe aortic valve stenosis with a mean aortic valve gradient 49 mmHg. It was recommended to undergo a heart catheterization and referral to tertiary center for TAVR evaluation. She declined heart catheterization locally and wish to be referred to [facility] for further evaluation. Due to wait time, she contacted [facility] team and scheduled an appointment. She has completed chest CTA. She was referred to their valve team. She is established with the cardiothoracic department at [facility] on 01/31/2024. On 02/08/2024 patient underwent a diagnostic heart catheterization. Heart catheterization demonstrated left main no disease, LAD torturous calcified with 50% disease in the midsegment after the origin of the large diagonal, circumflex gives off to a couple of very small high OM's followed by 80% stenosis before the OM 3, RCA large dominant tortuous calcified with serial 70 to 80% lesion of the mid segment. Patient underwent stenting of the RCA with 2 stents. On 02/09/2024 patient underwent a TAVR replacement with a 27 mm Khan and avatar trans catheter heart valve. Postoperatively she was noted to have new left bundle branch block. Because of her age she was not discharged home on aspirin and felt that it would be okay to just discharge her home on Eliquis and Plavix. Patient has a virtual follow-up with the [facility] in a few weeks. She is also planning on leaving for [place] for 3 months after the first of the year. She would like to participate in cardiac rehab while she is in [place]. Feel that she would be beneficial with this. She is still recovering. She still does have some chest pain. She feels that her shortness of breath is slightly better however she still does have fatigue and shortness of breath. She has not had any lower extremity edema. She does not have any chest discomfort. Blood pressure is better controlled. She does question if she can stop her carvedilol or at least decrease this. Intake Vital Signs 11/08/23 00:34 02/04/24 16:24 02/22/24 10:30 Height 5 ft 2 in 5 ft 2 in 5 ft 2 in Weight: 151 lb BMI 27.6 BP 124/80 H Blood Pressure Location Lt brachial Position Sitting Respiration 16 Pulse 66 Pulse Source Monitor Pulse Oximetry (%) 96 Oxygen Delivery Method room air Intake Visit Reasons: 6 M Help Desk Engineer Required: No Accompanied by: Daughter Is patient in pain?: No Allergies azithromycin Allergy (Severe, Verified 02/22/24 10:31) Other pravastatin Adverse Reaction (Severe, Verified 02/22/24 10:31) mylagias Medications ???Medication ???Instructions ???Recorded ???Confirmed ???Type cholecalciferol (vitamin D3) 125 5,000 unit PO DAILY SUPPLEMENT 12/12/17 02/22/24 History mcg (5,000 unit) capsule coenzyme Q10 200 mg capsule 200 mg PO DAILY SUPPLEMENT 12/12/17 02/22/24 History nitroglycerin 0.4 mg sublingual 0.4 mg sublingual Q5M PRN ANGINA 06/19/20 02/22/24 Rx tablet #25 tabs apixaban 2.5 mg tablet (Eliquis) 2.5 mg PO BID 07/09/21 02/22/24 History famotidine 10 mg tablet (Pepcid AC) 10 mg PO ONCE PRN gerd 12/06/22 02/22/24 History desoximetasone 0.25 % topical cream 1 applic topical DAILY PRN Fill as 02/09/23 02/22/24 Rx courtesy until pt obtains new Primary Dr. #15 grams carvedilol 12.5 mg tablet 12.5 mg PO BID 02/22/24 02/22/24 History clopidogrel 75 mg tablet 75 mg PO QDAY 02/22/24 02/22/24 History rosuvastatin 20 mg tablet 20 mg PO QDAY 02/22/24 02/22/24 History valsartan 160 mg tablet 160 mg PO BID 02/22/24 02/22/24 History Ejection fraction %: 70 Have you fallen in the past year?: No Nurse's Note: c/o constipation, hallucinations mostly at night and left forearm numbness since recent TAVR. ON LICENSE OF [facility] Medical History GERD (gastroesophageal reflux disease) Obesity Deep vein thrombosis Essential (primary) hypertension Nonrheumatic aortic (valve) stenosis Hyperlipidemia Atherosclerotic heart disease of [place] coronary artery without angina p (more content not included)... Normal [facility] Emergency Department Summary on 02-04-2024 Emergency Department Summary [facility] Medical Records Department [address] [place] [address] Emergency Department Summary 02/04/24 MR#: [id number] Acct: [id number] Name: GINA WORTHINGTON Rep #: [id number] : 1935 88 From: Steve Witt PCP: Dr. Amadou Liu MD Status:DEP ER Location: ED HPI History of Present Illness Chief Complaint: Cellulitis Informant: patient and family Narrative Narrative: Presents here with daughter for evaluation for concern of cellulitis right lower extremity. She reports intermittent redness to her right lower leg for the last 3 to 4 months goes away with elevation. Yesterday noted symptoms again. She is concerned due to having an upcoming vascular cardiology appointment in [place] in 5 days. History of aortic stenosis. She denies any leg swelling with this. 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 Denies fever or chills. Currently her leg is normal. Prior similar symptoms: Yes [facility] Medical History GERD (gastroesophageal reflux disease) Obesity Deep vein thrombosis Essential (primary) hypertension Nonrheumatic aortic (valve) stenosis Hyperlipidemia Atherosclerotic heart disease of [place] coronary artery without angina pectoris Home Medications ???Medication ???Instructions ???Recorded ???Last Taken ???Type cholecalciferol (vitamin D3) 125 5,000 unit PO DAILY SUPPLEMENT 12/12/17 11/20/19 History mcg (5,000 unit) capsule coenzyme Q10 200 mg capsule 200 mg PO DAILY SUPPLEMENT 12/12/17 11/20/19 History nitroglycerin 0.4 mg sublingual 0.4 mg sublingual Q5M PRN ANGINA 06/19/20 Unknown Rx tablet #25 tabs apixaban 2.5 mg tablet (Eliquis) 2.5 mg PO BID 07/09/21 Unknown History famotidine 10 mg tablet (Pepcid AC) 10 mg PO ONCE PRN gerd 12/06/22 Unknown History desoximetasone 0.25 % topical cream 1 applic topical DAILY PRN Fill as 02/09/23 Unknown Rx courtesy until pt obtains new Primary DrNelli #15 grams carvedilol 6.25 mg tablet 6.25 mg PO BID #180 tabs 01/10/24 Unknown Rx amlodipine 2.5 mg tablet 2.5 mg PO QDAY 01/17/24 Unknown History clonidine HCl 0.1 mg tablet 0.1 mg PO QHS PRN hypertensive 01/23/24 Unknown Rx emergency #7 tabs Allergy/AdvReac Type Severity Reaction Status Date / Time azithromycin Allergy Severe Other Verified 02/04/24 16:34 pravastatin AdvReac Severe mylagias Verified 02/04/24 16:34 Family History Other CVA (cerebral vascular accident) Surgical History Hx of cataract surgery History of left heart catheterization (07/26/13) History of coronary artery stent placement (06/19/01) Social History household members: none Smoking Status: Never smoker alcohol intake: current alcohol intake frequency: other substance use type: does not use ROS ROS ED Constitutional Constitutional ED: Denies chills, fever(s) or sweats Eyes Eyes: Denies change in vision ENT ENT ED: Denies dysphagia or sore throat Cardiovascular Cardiovascular: Denies chest pain, leg edema, palpitations or racing heartbeat Respiratory/Chest Respiratory/Chest: Denies cough, dyspnea or dyspnea on exertion Gastrointestinal Gastrointestinal: Denies abdominal pain, diarrhea, nausea or vomiting Genitourinary Genitourinary ED: Denies dysuria, hematuria or urinary frequency Musculoskeletal Musculoskeletal: Denies back pain, extremity pain or neck pain Integumentary Denies rash or wounds Neurologic Neurologic: Denies headache(s), paresthesias or weakness EXAM Physical Exam Const Vital Signs: 02/04/24 16:24 Temperature 97.6 F L Temperature Source Temporal Pulse Rate 74 Respiratory Rate 18 Blood Pressure 196/89 H Blood Pressure Mean 124 Pulse Ox 97 Oxygen Delivery Method Room Air Positive well nourished and well developed General Appearance ED: well developed and NAD HEENT Reports moist mucous membranes normocephalic and atraumatic Eyes EOMs intact bilaterally and conjunctivae normal General Eye ED: Yes normal appearance of both eyes Neck no lymphadenopathy and supple General: Negative for tenderness Chest Wall Chest: Negative for tenderness Resp normal respiratory effort and normal air movement Effort and Inspection: symmetric chest movement; Negative for respiratory distress Cardio regular rate and regular rhythm Rate: other Other Details: 2+ systolic murmur right parasternal. Peripheral Pulses: pulses 2+ throughout GI normal to inspection, nondistended, normoactive bowel sounds and non-tender Palpation: Negative for guarding or rebound tenderness present Back/Spine no CVA tenderness and no thoracic nor lumbar tenderness Extremity normal to i (more content not included)... Normal [facility] .Auto Diffon 01-23-2024 Basophil, Absolute 0.0 10 3/mcL Normal 0.0-0.3 [facility] Comment on above: Performed By: #### T GANESH, CBC, MDW, ANEU, ADIFF, GFR, MG, PBNP, CMP #### [address] [address] Basophils/100 WBC (Bld) 0.7 % Normal 0.0-2.5 [facility] MAIN Comment on above: Performed By: #### T GANESH, TONJA, EFFIE, ANEU, ADIFF, GFR, MG, PBNP, CMP #### [address] [address] Eosinophil, Absolute 0.1 10 3/mcL Normal 0.0-0.7 [facility] Comment on above: Performed By: #### T GANESH, CBC, W, ANEU, ADIFF, GFR, MG, PBNP, CMP #### [address] [address] Eosinophils/100 WBC (Bld) 2.1 % Normal 0.0-6.0 [facility]IN Comment on above: Performed By: #### T GANESH, CBC, MDW, ANEU, ADIFF, GFR, MG, PBNP, CMP #### [address] [address] Lymphocyte, Absolute 1.8 10 3/mcL Normal 0.9-4.3 [facility] MA[facility] Comment on above: Performed By: #### T GANESH, CBC, MDW, ANEU, ADIFF, GFR, MG, PBNP, CMP #### [address] [address] Lymphocytes/100 WBC (Bld) 40.2 % High 20.0-40.0 [facility] Comment on above: Performed By: #### T GANESH, CBC, MDW, ANEU, ADIFF, GFR, MG, PBNP, CMP #### [address] [address] Monocyte, Absolute 0.5 10 3/mcL Normal 0.1-1.4 [facility] MA[facility] Comment on above: Performed By: #### T GANESH, CBC, MDW, ANEU, ADIFF, GFR, MG, PBNP, CMP #### [address] [address] Monocytes/100 WBC (Bld) 11.7 % Normal 2.0-13.0 [facility] MAIN Comment on above: Performed By: #### T GANESH, CBC, MDW, ANEU, ADIFF, GFR, MG, PBNP, CMP #### [address] [address] Neutrophils/100 WBC (Bld) 45.3 % Low 50.0-75.0 [facility] Comment on above: Performed By: #### T GANESH, CBC, MDW, ANEU, ADIFF, GFR, MG, PBNP, CMP #### [address] [address] .GFRon 01-23-2024 GFR >60 Normal [facility] MAIN Comment on above: Result Comment: GFR Population mean for , Non- Americans Ages 20-29 = 116 mL/min/1.73 sq.m. Ages 30-39 = 107 mL/min/1.73 sq.m. Ages 40-49 = 99 mL/min/1.73 sq.m. Ages 50-59 = 93 mL/min/1.73 sq.m. Ages 60-69 = 85 mL/min/1.73 sq.m. Ages 70+ = 75 mL/min/1.73 sq.m. Chronic Kidney Disease: Less than 60 mL/min/1.73 square meters End Stage Renal Disease: Less than 15 mL/min/1.73 square meters Performed By: #### T GANESH, TONJA, EFFIE, ANEU, ADIFF, GFR, MG, PBNP, CMP ####[place] [id number] [place] [address] GFR Non- >60 Normal [facility] MAIN Comment on above: Result Comment: GFR Population mean for , Non- Americans Ages 20-29 = 116 mL/min/1.73 sq.m. Ages 30-39 = 107 mL/min/1.73 sq.m. Ages 40-49 = 99 mL/min/1.73 sq.m. Ages 50-59 = 93 mL/min/1.73 sq.m. Ages 60-69 = 85 mL/min/1.73 sq.m. Ages 70+ = 75 mL/min/1.73 sq.m. Chronic Kidney Disease: Less than 60 mL/min/1.73 square meters End Stage Renal Disease: Less than 15 mL/min/1.73 square meters Performed By: #### T TONJA ANDERSEN, EFFIE, ANEU, ADIFF, GFR, MG, PBNP, CMP ####[address] [address] .MDWon 01-23-2024 Monocyte Distribution Width 17.09 Normal 0.00-20.00 [facility] MAIN Comment on above: Result Comment: For ED adult patients suspected of sepsis, MDW<=20.0 does not rule out sepsis or risk of sepsis Performed By: #### T GANESH, TONJA, EFFIE, ANEU, ADIFF, GFR, MG, PBNP, CMP #### [address] [address] .NEUABSon 01-23-2024 Neutrophil, Absolute 2.0 10 3/mcL Low 2.3-8.1 [facility] MAIN Comment on above: Performed By: #### T GANESH, TONJA, EFFIE, ANEU, ADRENETTA, GFR, MG, PBNP, CMP #### [address] [address] 12 Lead EKG performed by [facility] on 01-23-2024 12 Lead EKG performed by [facility] [address] [place] [address] 12 Lead EKG performed by [facility] 01/23/24 1251 MR#: [id number] Acct: [id number] Name: GINA WORTHINGTON Rep #: [id number] : 1935 88 From: Erik Lucas STORAGE CONSULTANT STORAGE CONSULTANT-C Attending Dr: Erik Lucas, STORAGE CONSULTANT-C Status: DEP AMB Ordering Dr: Erik Lucas STORAGE CONSULTANT STORAGE CONSULTANT-C Date: 01/23/24 Location: [facility] [place] Sex: F C Admitted: BMS/12 Lead EKG performed by [facility] ECG Report Interpretation ------Sinus Rhythm -Nonspecific ST depression -Nondiagnostic. ABNORMAL Electronically signed on 01/24/2024 at 08:28 by Octavio Lopezwood Software Version [id number] 01/24/24 0832 Date Erik Lucas STORAGE CONSULTANT STORAGE CONSULTANT-C CC: Dr. Amadou Liu MD Date Dictated: 01/23/241250 Date Transcribed: 01/23/241250 Senior Paralegal: LIAM Signed Normal [facility] CBCon 01-23-2024 Erythrocyte distribution width (RBC) [Ratio] 14.9 % Normal 11.5-15.5 [facility] MA[facility] Comment on above: Performed By: #### T TONJA ANDERSEN MDW, ARMIDA, TWYLA, GFR, MG, PBNP, CMP #### [address] [address] Hematocrit (Bld) [Volume fraction] 41.0 % Normal 34.0-46.0 [facility] Comment on above: Performed By: #### T ROPHS, CBC, MDW, ANEU, ADIFF, GFR, MG, PBNP, CMP #### [place] [address] Hgb 13.6 G/dL Normal 12.0-16.0 [facility] MAIN Comment on above: Performed By: #### T GANESH, CBC, MDW, ANEU, ADIFF, GFR, MG, PBNP, CMP #### [place] [address] MCH (RBC) [Entitic mass] 32.9 pg Normal 27.0-33.0 [facility] Comment on above: Performed By: #### T GANESH, CBC, MDW, ANEU, ADIFF, GFR, MG, PBNP, CMP #### [place] [address] MCHC 33.2 G/dL Normal 32.0-36.0 [facility] Comment on above: Performed By: #### T GANESH, CBC, MDW, ANEU, ADIFF, GFR, MG, PBNP, CMP #### [place] [address] MCV (RBC) [Entitic vol] 99.1 fL High 80.0-99.0 [facility] MAIN Comment on above: Performed By: #### T GANESH, CBC, MDW, ANEU, ADIFF, GFR, MG, PBNP, CMP #### [place] [address] Platelet 164 10 3/mcL Normal 150-450 [facility] Comment on above: Performed By: #### T GANESH, CBC, MDW, ANEU, ADIFF, GFR, MG, PBNP, CMP #### [place] [address] Platelet mean volume (Bld) [Entitic vol] 10.1 fL Normal 6.6-10.5 [facility] Comment on above: Performed By: #### T GANESH, CBC, MDW, ANEU, ADIFF, GFR, MG, PBNP, CMP #### [place] [address] RBC 4.14 10 6/mcL Normal 4.10-5.30 [facility] Comment on above: Performed By: #### T GANESH, CBC, MDW, ANEU, ADIFF, GFR, MG, PBNP, CMP #### [address] [address] WBC 4.5 10 3/mcL Normal 4.5-10.8 [facility] Comment on above: Performed By: #### T GANESH, CBC, MDW, ANEU, ADIFF, GFR, MG, PBNP, CMP #### [address] [address] CMPon 01-23-2024 Albumin Level 3.5 G/dL Normal 3.2-4.8 [facility] Comment on above: Performed By: #### T GANESH, CBC, MDW, ANEU, ADIFF, GFR, MG, PBNP, CMP ####[place] [address] Albumin/Globulin [Mass ratio] 1.0 {ratio} Normal 0.9-1.6 [facility] Comment on above: Performed By: #### T GANESH, CBC, MDW, ANEU, ADIFF, GFR, MG, PBNP, CMP ####[address] [address] ALP [Catalytic activity/Vol] 49 U/L Normal 38-126 [facility] Comment on above: Performed By: #### T GANESH, CBC, MDW, ANEU, ADIFF, GFR, MG, PBNP, CMP ####[address] [address] ALT [Catalytic activity/Vol] 9 U/L Low 10-49 [facility] Comment on above: Performed By: #### T GANESH, CBC, MDW, ANEU, ADIFF, GFR, MG, PBNP, CMP ####[address] [address] AST [Catalytic activity/Vol] 21 U/L Normal 8-34 [facility] Comment on above: Performed By: #### T GANESH, CBC, MDW, ANEU, ADIFF, GFR, MG, PBNP, CMP ####[place] [address] Bili Total 0.50 mg/dL Normal 0.20-1.20 [facility] Comment on above: Result Comment: Use of this assay is not recommended for patients undergoing treatment with eltrombopag due to the potential for falsely elevated results. Performed By: #### T GANESH, CBC, MDW, ANEU, ADIFF, GFR, MG, PBNP, CMP ####[place] [address] BUN/Creatinine Ratio 18.1 ratio Normal 10.0-22.0 [facility] MAIN Comment on above: Performed By: #### T GANESH, CBC, MDW, ANEU, ADIFF, GFR, MG, PBNP, CMP ####[place] [address] Calcium [Mass/Vol] 9.8 mg/dL Normal 8.7-10.4 [facility] MAIN Comment on above: Performed By: #### T GANESH, CBC, MDW, ANEU, ADIFF, GFR, MG, PBNP, CMP ####[place] [address] Chloride [Moles/Vol] 107 mmol/L Normal 98-110 [facility] MAIN Comment on above: Performed By: #### T GANESH, CBC, MDW, ANEU, ADIFF, GFR, MG, PBNP, CMP ####[place] [id number] CO2 [Moles/Vol] 25 mmol/L Normal 22-32 [facility] Comment on above: Performed By: #### T GANESH, CBC, MDW, ANEU, ADIFF, GFR, MG, PBNP, CMP ####[place] [address] Creatinine [Mass/Vol] 0.83 mg/dL Normal 0.50-1.20 [facility] MAIN Comment on above: Result Comment: Test ing performed on Needish analyzer using enzymatic creatinine methodology. Performed By: #### T GANESH, CBC, MDW, ANEU, ADIFF, GFR, MG, PBNP, CMP ####[address] [place], [place] [address] Electrolyte Balance 7.0 mEq/L Normal 4.0-15.0 [facility] MAIN Comment on above: Performed By: #### T GANESH, CBC, MDW, ANEU, ADIFF, GFR, MG, PBNP, CMP ####[address] [address] Globulin 3.6 G/dL Normal 1.5-3.8 [facility] Comment on above: Performed By: #### T GANESH, CBC, MDW, ANEU, ADIFF, GFR, MG, PBNP, CMP ####[address] [address] Glucose [Mass/Vol] 93 mg/dL Normal 82-115 [facility] MAIN Comment on above: Performed By: #### T GANESH, TONJA, MDOracio, ANEU, ADIFF, GFR, MG, PBNP, CMP ####[address] [address] Potassium [Moles/Vol] 4.4 mmol/L Normal 3.5-5.0 [facility] MAIN Comment on above: Performed By: #### T GANESH, TONJA, EFFIE, ANEU, ADIFF, GFR, MG, PBNP, CMP ####[address] [address] Sodium [Moles/Vol] 139 mmol/L Normal 136-145 [facility] MAIN Comment on above: Performed By: #### T GANESH, TONJA, EFFIE, ANEU, ADIFF, GFR, MG, PBNP, CMP ####[place] [id number] Total Protein 7.1 G/dL Normal 5.7-8.2 [facility] Comment on above: Performed By: #### T GANESH, TONJA, EFFIE, ANEU, ADIFF, GFR, MG, PBNP, CMP ####[address] [address] Urea nitrogen [Mass/Vol] 15.0 mg/dL Normal 8.0-22.0 [facility] Comment on above: Performed By: #### T GANESH, TONJA, EFFIE, ANEU, ADIFF, GFR, MG, PBNP, CMP ####[place] [id number] [place] [address] CT HEAD OR BRAIN W/O CONTRAS Ton 01-23-2024 CT HEAD OR BRAIN W/O CONTRAST ORIGINAL EXAMINATION: CT OF THE HEAD WITHOUT [...] Date: 01/23/2024 4:06:01 AM Ordering Provider: KASSANDRA MITTAL [facility] MAIN Cardiology Visit Reporton Cardiology Visit Report [facility] [address] [place], [place] [address] OFFICE VISIT Date of Service: 01/23/24 MR#: [id number] Acct: [id number] Name: GINA WORTHINGTON Rep #: [id number] : 1935 Provider: GENA bennett Age/Sex: 88/F Location: [facility] Status: Signed HPI HPI History of Present Illness Details: GINA WORTHINGTON, is an 88 F who presents to the office today for a cardiovascular visit. She has a history of coronary artery disease status post angioplasty and stenting of the right coronary artery in 2001, hypertension and DVT with IVC filter. She also has a history of valvular heart disease with aortic stenosis. She had an echocardiogram on 12/21/2023 that showed ejection fraction of 70%, severe aortic valve stenosis with a mean aortic valve gradient 49 mmHg. It was recommended to undergo a heart catheterization and referral to tertiary center for TAVR evaluation. She declined heart catheterization locally and wish to be referred to [facility] for further evaluation. Due to wait time, she contacted [facility] team and scheduled an appointment. She has completed chest CTA. She was seen at [facility] Emergency Department for chest pain. Work-up was negative. She was referred to their valve team. On account of symptoms and history, she presents the office today. She states chest pain in the center of her chest. This is intermittent. She denies arm, jaw, or neck discomfort. She denies palpitations. She denies bilateral lower extremity edema. She denies claudication. She staes shortness of breath with activity. She denies shortness of breath at rest, orthopnea, or PND. She denies chronic cough. She denies significant, sudden weight gain. She denies lightheadedness, dizziness, near-syncope, or syncope. She denies blood in urine, blood in stool, or epistaxis. He denies fever with chills. She denies myalgia. She denies fatigue. Her exercise level has remained stable. 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: No Is patient in pain?: No Allergies azithromycin Allergy (Severe, Verified 01/23/24 12:52) Other pravastatin Adverse Reaction (Severe, Verified 01/23/24 12:52) mylagias Medications ???Medication ???Instructions ???Recorded ???Confirmed ???Type cholecalciferol (vitamin D3) 125 5,000 unit PO DAILY SUPPLEMENT 12/12/17 01/23/24 History mcg (5,000 unit) capsule coenzyme Q10 200 mg capsule 200 mg PO DAILY SUPPLEMENT 12/12/17 01/23/24 History nitroglycerin 0.4 mg sublingual 0.4 mg sublingual Q5M PRN ANGINA 06/19/20 01/23/24 Rx tablet #25 tabs apixaban 2.5 mg tablet (Eliquis) 2.5 mg PO BID 07/09/21 01/23/24 History famotidine 10 mg tablet (Pepcid AC) 10 mg PO ONCE PRN gerd 12/06/22 01/23/24 History desoximetasone 0.25 % topical cream 1 applic topical DAILY PRN Fill as 02/09/23 01/23/24 Rx courtesy until pt obtains new Primary DrNelli #15 grams carvedilol 6.25 mg tablet 6.25 mg PO BID #180 tabs 01/10/24 01/23/24 Rx lisinopril 10 mg tablet 20 mg (2 x 10 mg) PO BID #60 tabs 01/10/24 01/23/24 Rx amlodipine 2.5 mg tablet 2.5 mg PO QDAY 01/17/24 01/23/24 History clonidine HCl 0.1 mg tablet 0.1 mg PO QHS PRN hypertensive 01/23/24 01/23/24 Rx emergency #7 tabs Have you fallen in the past year?: No ON LICENSE OF [facility] Medical History (Updated 01/10/24 @ 19:36 by Megha Isidro) GERD (gastroesophageal reflux disease) Obesity Deep vein thrombosis Essential (primary) hypertension Nonrheumatic aortic (valve) stenosis Hyperlipidemia Atherosclerotic heart disease of [place] coronary artery without angina pectoris Surgical History Hx of cataract surgery History of left heart catheterization (07/26/13) History of coronary artery stent placement (06/19/01) Family History Other CVA (cerebral vascular accident) Social History household members: none Smoking Status: Never smoker alcohol intake: current alcohol intake frequency: other substance use type: does not use ROS Const Const: Negative for fatigue, weakness, body ache, fever(s) or chills ENT ENT: Positive for dizziness; Negative for Nosebleed/epistaxis Cardio Chest Pain: Yes Palpitations: No Edema: None Muscle aches with walking: None Resp Respiratory: Positive for SOB orthopnea SOB lying down (3 pillows- unchanged from previous); Negative for SOB with activity, SOB at rest, Cough or p (more content not included)... Normal [facility] LABORATORYOrdered By: SYSTEM SYSTEM on 01-23-2024 Troponin I.cardiac DL <= 0.01 ng/mL [Mass/Vol] 11 ng/L Normal 0 - 34 ng/L ADM SS Comment on above: Interpretive Data: High Sensitive Troponin I Reference Ranges: Female: 0-34 ng/L Male: 0-54 ng/L Testing performed on Motorpaneer analyzer using direct chemiluminescent technology. Albumin BCP dye [Mass/Vol] 3.5 G/dL Normal 3.2 - 4.8 G/dL ADM SS Albumin/Globulin [Mass ratio] 1.0 {ratio} Normal 0.9 - 1.6 ratio ADM SS ALP [Catalytic activity/Vol] 49 U/L Normal 38 - 126 U/L ADM SS ALT No additional P-5'-P [Catalytic activity/Vol] 9 U/L Low 10 - 49 U/L ADM SS AST [Catalytic activity/Vol] 21 U/L Normal 8 - 34 U/L ADM SS Basophils (Bld) [#/Vol] 0.0 103/mcL Normal 0.0 - 0.3 10^3/mcL Workflow SS Basophils/100 WBC (Bld) 0.7 % Normal 0.0 - 2.5 % Workflow SS Bilirubin [Mass/Vol] 0.50 mg/dL Normal 0.20 - 1.20 mg/dL ADM SS Comment on above: Interpretive Data: U se of this assay is not recommended for patients undergoing treatment with eltrombopag due to the potential for falsely elevated results. Calcium [Mass/Vol] 9.8 mg/dL Normal 8.7 - 10. 4 mg/dL ADM SS Chloride [Moles/Vol] 107 mmol/L Normal 98 - 11 0 mEq/L ADM SS CO2 [Moles/Vol] 25 mmol/L Normal 22 - 32 mEq/L ADM SS Creatinine [Mass/Vol] 0.83 mg/dL Normal 0.50 - 1.20 mg/dL ADM SS Comment on above: Interpretive Data: T esting performed on Needish analyzer using enzymatic creatinine methodology. Electrolyte Balance 7.0 mEq/L Normal 4.0 - 15 .0 mEq/L ADM SS Eosinophils (Bld) [#/Vol] 0.1 103/mcL Normal 0.0 - 0.7 10^3/mcL Workflow SS Eosinophils/100 WBC (Bld) 2.1 % Normal 0.0 - 6.0 % Workflow SS Erythrocyte distribution width (RBC) [Ratio] 14.9 % Normal 11.5 - 15.5 % Workflow SS GFR/1.73 sq M.predicted among blacks MDRD (S/P/Bld) [Vol rate/Area] ml/min/1.73sqm Invalid Interpretation Code ADM SS Comment on above: Interpretive Data: GFR Population mean for , Non- Americans Ages 20-29 = 116 mL/min/1.73 sq.m. Ages 30-39 = 107 mL/min/1.73 sq.m. Ages 40-49 = 99 mL/min/1.73 sq.m. Ages 50-59 = 93 mL/min/1.73 sq.m. Ages 60-69 = 85 mL/min/1.73 sq.m. Ages 70+ = 75 mL/min/1.73 sq.m. Chronic Kidney Disease: Less than 60 mL/min/1.73 square meters End Stage Renal Disease: Less than 15 mL/min/1.73 square meters GFR/1.73 sq M.predicted among non-blacks MDRD (S/P/Bld) [Vol rate/Area] ml/min/1.73sqm Invalid Interpretation Code ADM SS Comment on above: Interpretive Data: GFR Population mean for , Non- Americans Ages 20-29 = 116 mL/min/1.73 sq.m. Ages 30-39 = 107 mL/min/1.73 sq.m. Ages 40-49 = 99 mL/min/1.73 sq.m. Ages 50-59 = 93 mL/min/1.73 sq.m. Ages 60-69 = 85 mL/min/1.73 sq.m. Ages 70+ = 75 mL/min/1.73 sq.m. Chronic Kidney Disease: Less than 60 mL/min/1.73 square meters End Stage Renal Disease: Less than 15 mL/min/1.73 square meters Globulin 3.6 G/dL Normal 1.5 - 3.8 G/dL ADM SS Glucose [Mass/Vol] 93 mg/dL Normal 82 - 115 mg/dL ADM SS Hematocrit (Bld) [Volume fraction] 41.0 % Normal 34.0 - 46.0 % AH Workflow SS Hemoglobin (Bld) [Mass/Vol] 13.6 G/dL Normal 12.0 - 16.0 G/dL AH Workflow SS Lymphocytes (Bld) [#/Vol] 1.8 103/mcL Normal 0.9 - 4.3 10^3/mcL AH Workflow SS Lymphocytes/100 WBC (Bld) 40.2 % High 20.0 - 40.0 % Workflow SS Magnesium [Mass/Vol] 1.9 mg/dL Normal 1.6 - 2 .4 mg/dL ADM SS MCH (RBC) [Entitic mass] 32.9 pg Normal 27.0 - 33.0 pg AH Workflow SS MCHC 33.2 G/dL Normal 32.0 - 36.0 G/dL AH Workflow SS MCV (RBC) [Entitic vol] 99.1 fL High 80.0 - 99.0 fL Workflow SS Monocyte distribution width Auto (Bld) [Entitic vol] 17.09 1 Normal 0.00 - 20.00 Workflow SS Comment on above: Result Comment: For ED adult patients suspected of sepsis, MDW<=20.0 does not rule out sepsis or risk of sepsis Monocytes (Bld) [#/Vol] 0.5 103/mcL Normal 0.1 - 1.4 10^3/mcL Workflow SS Monocytes/100 WBC (Bld) 11.7 % Normal 2.0 - 13.0 % Workflow SS Natriuretic peptide.B prohormone N-Terminal IA [Mass/Vol] 1383 pg/mL Normal 0 - 1800 pg/mL ADM SS Neutrophils (Bld) [#/Vol] 2.0 103/mcL Low 2.3 - 8.1 10^3/mcL Workflow SS Neutrophils/100 WBC (Bld) 45.3 % Low 50.0 - 75.0 % AH Workflow SS Platelet mean volume (Bld) [Entitic vol] 10.1 fL Normal 6.6 - 10.5 fL Workflow SS Platelets (Bld) [#/Vol] 164 103/mcL Normal 150 - 450 10^3/mcL AH Workflow SS Potassium [Moles/Vol] 4.4 mmol/L Normal 3.5 - 5.0 mEq/L ADM SS Protein [Mass/Vol] 7.1 G/dL Normal 5.7 - 8.2 G/dL ADM SS RBC (Bld) [#/Vol] 4.14 106/mcL Normal 4.10 - 5.3 0 10^6/mcL Workflow SS Sodium [Moles/Vol] 139 mmol/L Normal 136 - 145 mEq/L ADM SS Troponin I.cardiac DL <= 0.01 ng/mL [Mass/Vol] 11 ng/L Normal 0 - 34 ng/L ADM Comment on above: Interpretive Data: High Sensitive Troponin I Reference Ranges: Female: 0-34 ng/L Male: 0-54 ng/L Testing performed on Motorpaneer analyzer using direct chemiluminescent technology. Urea nitrogen [Mass/Vol] 15.0 mg/dL Normal 8.0 - 22.0 mg/dL ADM SS Urea nitrogen/Creatinine [Mass ratio] 18.1 ratio Normal 10.0 - 22.0 ratio ADM SS WBC (Bld) [#/Vol] 4.5 103/mcL Normal 4.5 - 10.8 10^3/mcL Workflow SS MGon 01-23-2024 Magnesium [Mass/Vol] 1.9 mg/dL Normal 1.6-2.4 [facility] MAIN Comment on above: Performed By: #### T GANESH, CBC, MDW, ANEU, ADIFF, GFR, MG, PBNP, CMP #### [address] [address] PBNPon 01-23-2024 Natriuretic peptide B (Bld) [Mass/Vol] 1383 pg/mL Normal 0-1800 [facility] [facility] Comment on above: Performed By: #### T GANESH, CBC, MDW, ANEU, ADIFF, GFR, MG, PBNP, CMP #### [address] [address] TROPHSon 01-23-2024 High Sensitivity Troponin I 11 ng/L Normal 0-34 [facility] Comment on above: Result Comment: High Sensitive Troponin I Reference Ranges: Female: 0-34 ng/L Male: 0-54 ng/L Testing performed on [facility] IM analyzer using direct chemiluminescent technology. Performed By: #### T GANESH #### [place] [address] High Sensitivity Troponin I 11 ng/L Normal 0-34 [facility] Comment on above: Result Comment: High Sensitive Troponin I Reference Ranges: Female: 0-34 ng/L Male: 0-54 ng/L Testing performed on [facility] IM analyzer using direct chemiluminescent technology. Performed By: #### T GANESH, CBC, MDW, ANEU, ADIFF, GFR, MG, PBNP, CMP #### [address] [address] XR CHEST 1 VIEWon 01-23-2024 XR CHEST 1 VIEW ORIGINAL EXAMINATION: ONE XRAY VIEW OF THE [...] Sign Date: 01/23/2024 3:33:33 AM Ordering Provider: KASSANDRA MITTAL [facility] MAIN 12 Lead EKGon 01-10-2024 12 Lead EKG [facility] Cardi[facility] Services [address] [place] [address] 12 Lead EKG 01/10/241924 MR#: [id number] Acct: [id number] Name: GINA WORTHINGTON Rep #: [id number] : 1935 88 From: Pieter Cook MD Attending Dr: Status: DEP ER Ordering Dr: Hiram Bill DO Date: 01/10/24 Location: ED Sex: F C Admitted: Test Reason : Blood Pressure : */* mmHG Vent. Rate : 71 BPM Atrial Rate : 71 BPM P-R Int : 190 ms QRS Dur : 80 ms QT Int : 386 ms P-R-T Axes : 60 40 57 degrees QTcB Int : 419 ms Normal sinus rhythm Minimal voltage criteria for LVH, may be normal variant ( Sokolow-Rosenbaum ) Borderline ECG Confirmed by Pieter Cook ([id number]), editor index CANDIE PEMBERTON ([id number]) on 01/11/2024 1:08:40 PM Referred By: Confirmed By: Pieter Cook 01/11/24 1308 Date Pieter Cook MD CC: Dr. Amadou Liu MD; Dr. Hiram Bill DO Signed Normal [facility] Basic Metabolic Profile (BMP )on 01-10-2024 BUN/CRE 13.4 RATIO Normal 10-20 [facility] Comment on above: Order Comment: 'TROP ' Serial specimen #1, #2 or #3: 1 1 Y Performed By: #### L 501.5425, L500.2500, L100.0100 #### [facility] [address] [place], [address] CA,Total 9.4 mg/dL Normal 8.5-10.1 [facility] Comment on above: Order Comment: 'TROP ' Serial specimen #1, #2 or #3: 1 1 Y Performed By: #### L 501.5425, L500.2500, L100.0100 #### [facility] [address] [place], [address] Chloride [Moles/Vol] 107 mmol/L Normal 98-107 [facility] Comment on above: Order Comment: 'TROP ' Serial specimen #1, #2 or #3: 1 1 Y Performed By: #### L 501.5425, L500.2500, L100.0100 #### [facility] [address] [place], [address] CO2 [Moles/Vol] 26.0 mmol/L Normal 21.0-32.0 [facility] Comment on above: Order Comment: 'TROP ' Serial specimen #1, #2 or #3: 1 1 Y Performed By: #### L 501.5425, L500.2500, L100.0100 #### [facility] [address] [place], [address] Creatinine [Mass/Vol] 0.90 mg/dL Normal 0.55-1.02 [facility] Comment on above: Order Comment: 'TROP ' Serial specimen #1, #2 or #3: 1 1 Y Result Comment: The validity of the calculated GFR GFRAA in patients over 70 years has not been determined. Clinical correlation is essential. Performed By: #### L 501.5425, L500.2500, L100.0100 #### [facility] [address] [place], [address] ECRCL 39.40 ml/min Normal [facility] Comment on above: Order Comment: 'TROP ' Serial specimen #1, #2 or #3: 1 1 Y Performed By: #### L 501.5425, L500.2500, L100.0100 #### [facility] [address] [place], [address] EST GFR - AA 76 mL/min Normal >60 [facility] Comment on above: Order Comment: 'TROP ' Serial specimen #1, #2 or #3: 1 1 Y Result Comment: Afri can Chinese GFR Calc Performed By: #### L 501.5425, L500.2500, L100.0100 #### [facility] [address] [place], [address] GAP 7 Normal 5-15 [facility] Comment on above: Order Comment: 'TROP ' Serial specimen #1, #2 or #3: 1 1 Y Performed By: #### L 501.5425, L500.2500, L100.0100 #### [facility] [address] [place], [address] GFR/1.73 sq M.predicted among non-blacks MDRD (S/P/Bld) [Vol rate/Area] 63 mL/min/{1.73_m2} Normal >60 [facility] Comment on above: Order Comment: 'TROP ' Serial specimen #1, #2 or #3: 1 1 Y Result Comment: Non- GFR Calc Performed By: #### L 501.5425, L500.2500, L100.0100 #### [facility] [address] [place], [address] Glucose [Mass/Vol] 94 mg/dL Normal 74-106 [facility] Comment on above: Order Comment: 'TROP ' Serial specimen #1, #2 or #3: 1 1 Y Performed By: #### L 501.5425, L500.2500, L100.0100 #### [facility] [address] [place], [address] Potassium [Moles/Vol] 3.9 mmol/L Normal 3.5-5.1 [facility] Comment on above: Order Comment: 'TROP ' Serial specimen #1, #2 or #3: 1 1 Y Performed By: #### L 501.5425, L500.2500, L100.0100 #### [facility] [address] [place], [address] Sodium [Moles/Vol] 139 mmol/L Normal 136-145 [facility] Comment on above: Order Comment: 'TROP ' Serial specimen #1, #2 or #3: 1 1 Y Performed By: #### L 501.5425, L500.2500, L100.0100 #### [facility] [address] [place], [address] Urea nitrogen [Mass/Vol] 12 mg/dL Normal 7-18 [facility] Comment on above: Order Comment: 'TROP ' Serial specimen #1, #2 or #3: 1 1 Y Performed By: #### L 501.5425, L500.2500, L100.0100 #### [facility] [address] [place], [address] CBC W/Diff, Automatedon 11-0 5-2024 Absolute Lymph 2.10 X10 3/uL Normal 0.83-4.51 [facility] Comment on above: Performed By: #### L 501.5425, L500.2500, L100.0100 #### [facility] [address] [place], [address] Absolute Neut 2.0 X10 3/uL Normal 2.0-7.7 [facility] Comment on above: Performed By: #### L 501.5425, L500.2500, L100.0100 #### [facility] [address] [place], [address] Basophils/100 WBC (Bld) 0.9 % Normal 0-1 [facility] Comment on above: Performed By: #### L 501.5425, L500.2500, L100.0100 #### [facility] [address] [place], [address] Eosinophils/100 WBC (Bld) 0.9 % Normal 0-5 [facility] Comment on above: Performed By: #### L 501.5425, L500.2500, L100.0100 #### [facility] [address] [place], [address] Erythrocyte distribution width (RBC) [Ratio] 14.1 % Normal 11.6-14.6 [facility] Comment on above: Performed By: #### L 501.5425, L500.2500, L100.0100 #### [facility] [address] [place], [address] Hematocrit (Bld) [Volume fraction] 38.9 % Normal 37-47 [facility] Comment on above: Performed By: #### L 501.5425, L500.2500, L100.0100 #### [facility] [address] [place], [address] Hemoglobin (Bld) [Mass/Vol] 13.1 g/dL Normal 12.0-15.0 [facility] Comment on above: Performed By: #### L 501.5425, L500.2500, L100.0100 #### [facility] [address] [place], [address] IG% 0.000 Normal 0.0-0.9 [facility] Comment on above: Result Comment: IG% - Immature Granulocytes (promyelocytes, myelocytes and metamyelocytes) > 1% indicates that a LEFT SHIFT is Present. Performed By: #### L 501.5425, L500.2500, L100.0100 #### [facility] [address] [place], [address] Lymphocytes/100 WBC (Bld) 46.1 % High 19-41 [facility] Comment on above: Performed By: #### L 501.5425, L500.2500, L100.0100 #### [facility] [address] [place], [address] MCH (RBC) [Entitic mass] 33.0 pg High 27.0-32.0 [facility] Comment on above: Performed By: #### L 501.5425, L500.2500, L100.0100 #### [facility] [address] [place], [address] MCHC (RBC) [Mass/Vol] 33.7 g/dL Normal 32-36 [facility] Comment on above: Performed By: #### L 501.5425, L500.2500, L100.0100 #### [facility] [address] [place], [address] MCV (RBC) [Entitic vol] 98.0 fL Normal 81-99 [facility] Comment on above: Performed By: #### L 501.5425, L500.2500, L100.0100 #### [facility] [address] [place], [address] Monocytes/100 WBC (Bld) 9.4 % Normal 0-10 [facility] Comment on above: Performed By: #### L 501.5425, L500.2500, L100.0100 #### [facility] [address] [place], [address] Neutrophils/100 WBC (Bld) 42.7 % Low 47-70 [facility] Comment on above: Performed By: #### L 501.5425, L500.2500, L100.0100 #### [facility] [address] [place], [address] Nucleated RBC (Bld) [#/Vol] 0 10*3/uL Normal 0-5 [facility] Comment on above: Performed By: #### L 501.5425, L500.2500, L100.0100 #### [facility] [address] [place], [address] Platelet mean volume (Bld) [Entitic vol] 11.2 fL Normal 6.2-12.0 [facility] Comment on above: Performed By: #### L 501.5425, L500.2500, L100.0100 #### [facility] [address] [place], [address] Platelets (Bld) [#/Vol] 224 10*3/uL Normal 150-450 [facility] Comment on above: Performed By: #### L 501.5425, L500.2500, L100.0100 #### [facility] [address] [place], [address] RBC (Bld) [#/Vol] 3.97 10*6/uL Low 4.2-5.[address] [facility] Comment on above: Performed By: #### L 501.5425, L500.2500, L100.0100 #### [facility] [address] [place], [address] RDW SD 50.9 fl High 35.1-43.9 [facility] Comment on above: Performed By: #### L 501.5425, L500.2500, L100.0100 #### [facility] [address] [place], [address] WBC (Bld) [#/Vol] 4.6 10*3/uL Normal 4.4-11.0 [facility] Comment on above: Performed By: #### L 501.5425, L500.2500, L100.0100 #### [facility] [address] [place], [address] Chest 1 View (Portable)on Chest 1 View (Portable) [facility] Imaging Services [address] [place] [address] Chest 1 View (Portable) MR#: [id number] Acct: [id number] Name: GINA WORTHINGTON Rep #: [id number] : 1935 F 88 From: Tino Cagle MD PCP: Dr. Amadou Liu MD Status: [facility] ER Study: Chest 1 View (Portable) Date of Exam: 01/10/24 Exam# [id number] Ordering Dr: Hiram Bill DO [id number] STUDY: X-RAY CHEST REASON FOR EXAM: Female, 88 years old. chest pain TECHNIQUE: AP portable COMPARISON: January 23, 2023 FINDINGS: The lungs are clear and expanded. There is no demonstrated pleural abnormality. Normal size heart. Normal mediastinum and fermín. Normal visualized pulmonary arteries. Tortuous mildly calcified aortic arch and descending thoracic aorta. Dorsal spine and shoulders demonstrate degenerative change. Normal visualized ribs, and clavicles. There is no demonstrated abnormality of the visualized soft tissue structures of the upper abdomen. RAD/Chest 1 View (Portable) IMPRESSION: ASHD. No acute cardiopulmonary pathology Electronically Signed: Tino Cagle MD at 20:18 EST Reading Location ID and State: [facility] / [place] Tel , Service support , CC: Dr. Amadou Liu MD; Dr. Hirma Bill DO Senior Paralegal: Signed Normal [facility] Emergency Department Summary on 01-10-2024 Emergency Department Summary [facility] Medical Records Department [address] [place] [address] Emergency Department Summary 01/10/24 MR#: [id number] Acct: [id number] Name: GINA WORTHINGTON Rep #: [id number] : 1935 88 From: Hiram Bill DO PCP: Dr. Amadou Liu MD Status:REG ER Location: ED HPI History of Present Illness Chief Complaint: Chest Pain [facility] Medical History (Updated 01/10/24 @ 19:36 by Megha Isidro) GERD (gastroesophageal reflux disease) Obesity Deep vein thrombosis Essential (primary) hypertension Nonrheumatic aortic (valve) stenosis Hyperlipidemia Atherosclerotic heart disease of [place] coronary artery without angina pectoris Home Medications ???Medication ???Instructions ???Recorded ???Last Taken ???Type cholecalciferol (vitamin D3) 125 5,000 unit PO DAILY SUPPLEMENT 12/12/17 11/20/19 History mcg (5,000 unit) capsule coenzyme Q10 200 mg capsule 200 mg PO DAILY SUPPLEMENT 12/12/17 11/20/19 History nitroglycerin 0.4 mg sublingual 0.4 mg sublingual Q5M PRN ANGINA 06/19/20 Unknown Rx tablet #25 tabs apixaban 2.5 mg tablet (Eliquis) 2.5 mg PO BID 07/09/21 Unknown History famotidine 10 mg tablet (Pepcid AC) 10 mg PO ONCE PRN gerd 12/06/22 Unknown History desoximetasone 0.25 % topical cream 1 applic topical DAILY PRN Fill as 02/09/23 Unknown Rx courtesy until pt obtains new Primary DrNelli #15 grams carvedilol 6.25 mg tablet 6.25 mg PO BID #180 tabs 01/10/24 Unknown Rx lisinopril 10 mg tablet 20 mg (2 x 10 mg) PO BID #60 tabs 01/10/24 Unknown Rx Allergy/AdvReac Type Severity Reaction Status Date / Time azithromycin Allergy Severe Other Verified 01/10/24 19:06 pravastatin AdvReac Severe mylagias Verified 01/10/24 19:06 Family History Other CVA (cerebral vascular accident) Surgical History Hx of cataract surgery History of left heart catheterization (07/26/13) History of coronary artery stent placement (06/19/01) Social History household members: none Smoking Status: Never smoker alcohol intake: current alcohol intake frequency: other substance use type: does not use EXAM Physical Exam Const Vital Signs: 01/10/24 19:02 01/10/24 19:06 01/10/24 19:35 Temperature 98 F Temperature Source Oral Pulse Rate 73 62 Respiratory Rate 18 16 Respiratory Effort Normal Blood Pressure 183/112 H 158/87 H Blood Pressure Mean 135 110 Pulse Ox 98 97 Oxygen Delivery Method Room Air Room Air 01/10/24 19:53 01/10/24 20:06 01/10/24 20:06 Temperature Temperature Source Pulse Rate 61 Respiratory Rate 14 Respiratory Effort Short of Breath Blood Pressure 164/83 H Blood Pressure Mean 110 Pulse Ox 97 97 Oxygen Delivery Method Room Air Room Air 01/10/24 21:00 01/10/24 22:00 Temperature Temperature Source Pulse Rate 67 63 Respiratory Rate 16 16 Respiratory Effort Blood Pressure 181/85 H 171/75 H Blood Pressure Mean 117 107 Pulse Ox 97 97 Oxygen Delivery Method Room Air Room Air MDM MDM MDM Narrative Medical decision making narrative: HISTORY OF PRESENT ILLNESS: 88-year-old female presents with elevated blood pressure and chest pain. No she told her primary care physician she had a blood pressure 198 systolic. She took her home carvedilol and lisinopril at approximately 6 PM. Notes history of DVT but otherwise denies estrogen use, unilateral leg swelling, hemoptysis, recent surgery chemotherapy. Patient denies sudden onset of pain, no tearing sensation, no migratory symptoms, no new numbness, weakness or loss of sensation. Patient denies family history or personal history of Connective tissue disorders (Marfan's Syndrome, Akila Danlos etc) REVIEW OF SYSTEMS: Pertinent positives: Elevated blood pressure, chest pain Pertinent negatives: Shortness of breath, leg swelling, cough, fever, bleeding diathesis PHYSICAL EXAM: Nursing triage notes reviewed, Vital signs reviewed Constitutional: please see mdm HENT: MMM Eyes: Pupils equal round and reactive to light, Extraocular muscles intact Neck: No stridor, no JVD, full neck ROM Lungs: Clear to auscultation, No wheezing or rales. No increased work of breathing, no conversational dyspnea, no accessory muscle use, no nasal flaring. No respiratory distress noted Heart: Regular rate and rhythm, No murmurs, No rubs and No gallops, 2+ distal pulses (radial, femoral, posterior tibial) in all extremities Abdomen: Soft, there is no tenderness, rigidity, rebound or guarding, no obvious peritoneal signs, no palpable pulsatile abdominal masses, no auscultated abdominal bruit : No CVAT Extremities: No edema Ne (more content not included)... Normal [facility] L501.4020on 01-10-2024 TROPONIN-I HS 12 pg/mL Normal 3.0-54.0 [facility] Comment on above: Result Comment: Pledebra leija Note: New Test Units and Gender Specific Reference Ranges. For more information see Policy Stat Procedure [place] High Sensitivity Troponin (TNIH) and attachments. Performed By: #### L 501.4020 ####[facility] [address] [place], [address] L501.5425on 01-10-2024 TROPONIN-I HS 12 pg/mL Normal 3.0-54.0 [facility] Comment on above: Order Comment: 'TROP ' Serial specimen #1, #2 or #3: 11Y Result Comment: Milka leija Note: New Test Units and Gender Specific Reference Ranges. For more information see Policy Stat Procedure [place] High Sensitivity Troponin (TNIH) and attachments. Performed By: #### L 501.5425, L500.2500, L100.0100 ####[facility] [address] [place], [place], [address] CBC W Auto Differential pane l (Bld)on 01-07-2024 Basophils (Bld) [#/Vol] 0.03 10*3/uL Normal <0.11 [facility] Comment on above: Order Comment: Speci men Type: BLOOD SPECIMEN Ordering Facility: [facility] Address: [address] [place] [address] Performed By: #### 5 7021-8 #### [facility] CLIA [id number] [address] [place] [address] [place] Basophils/100 WBC (Bld) 0.7 % Normal [facility] Comment on above: Order Comment: Speci men Type: BLOOD SPECIMEN Ordering Facility: [facility] Address: [address] [place] [address] Performed By: #### 5 7021-8 #### [facility] CLIA [id number] [address] [place] [address] [place] Differential cell count method Nom (Bld) Auto Normal [facility] Comment on above: Order Comment: Speci men Type: BLOOD SPECIMEN Ordering Facility: [facility] Address: [address] [place] [address] Performed By: #### 5 7021-8 #### [facility] CLIA [id number] [address] [place] [address] [place] Eosinophils (Bld) [#/Vol] 0.06 10*3/uL Normal <0.46 [facility] Comment on above: Order Comment: Speci men Type: BLOOD SPECIMEN Ordering Facility: [facility] Address: [address] [place] [address] Performed By: #### 5 7021-8 #### [facility] CLIA [id number] [address] [place] [address] [place] Eosinophils/100 WBC (Bld) 1.3 % Normal [facility] Comment on above: Order Comment: Speci men Type: BLOOD SPECIMEN Ordering Facility: [facility] Address: [address] [place] [address] Performed By: #### 5 7021-8 #### [facility] CLIA [id number] [address] [place] [address] [place] Erythrocyte distribution width (RBC) [Ratio] 13.9 % Normal 11.5-15.0 [facility] Comment on above: Order Comment: Speci men Type: BLOOD SPECIMEN Ordering Facility: [facility] Address: [address] [place] [address] Performed By: #### 5 7021-8 #### [facility] CLIA [id number] [address] [place] [address] [place] Hematocrit (Bld) [Volume fraction] 41.1 % Normal 36.0-46.0 [facility] Comment on above: Order Comment: Speci men Type: BLOOD SPECIMEN Ordering Facility: [facility] Address: [address] [place] [address] Performed By: #### 5 7021-8 #### [facility] CLIA [id number] [address] [place] [address] [place] Hemoglobin (Bld) [Mass/Vol] 13.8 g/dL Normal 11.5-15.5 [facility] Comment on above: Order Comment: Speci men Type: BLOOD SPECIMEN Ordering Facility: [facility] Address: [address] [place] [address] Performed By: #### 5 7021-8 #### [facility] CLIA [id number] [address] [place] [address] [place] Immature granulocytes (Bld) [#/Vol] 10*3/uL Normal <0.10 [facility] Comment on above: Order Comment: Speci men Type: BLOOD SPECIMEN Ordering Facility: [facility] Address: [address] [place] [address] Performed By: #### 5 7021-8 #### [facility] CLIA [id number] [address] [place] [address] [place] Immature granulocytes/100 WBC (Bld) 0.2 % Normal [facility] Comment on above: Order Comment: Speci men Type: BLOOD SPECIMEN Ordering Facility: [facility] Address: [address] [place] [address] Performed By: #### 5 7021-8 #### [facility] CLIA [id number] [address] [place] [address] [place] Lymphocytes (Bld) [#/Vol] 1.91 10*3/uL Normal 1.00-4.00 [facility] Comment on above: Order Comment: Speci men Type: BLOOD SPECIMEN Ordering Facility: [facility] Address: [address] [place] [address] Performed By: #### 5 7021-8 #### [facility] CLIA [id number] [address] [place] [address] [place] Lymphocytes/100 WBC (Bld) 42.9 % Normal [facility] Comment on above: Order Comment: Speci men Type: BLOOD SPECIMEN Ordering Facility: [facility] Address: [address] [place] [address] Performed By: #### 5 7021-8 #### [facility] CLIA [id number] [address] [place] [address] [place] MCH (RBC) [Entitic mass] 32.9 pg Normal 26.0-34.0 [facility] Comment on above: Order Comment: Speci men Type: BLOOD SPECIMEN Ordering Facility: [facility] Address: [address] [place] [address] Performed By: #### 5 7021-8 #### [facility] CLIA [id number] [address] [place] [address] [place] MCHC (RBC) [Mass/Vol] 33.6 g/dL Normal 30.5-36.0 [facility] Comment on above: Order Comment: Speci men Type: BLOOD SPECIMEN Ordering Facility[facility] Address: [address] [place] [address] Performed By: #### 5 7021-8 #### [facility] CLIA [id number] [address] [place] [address] [place] MCV (RBC) [Entitic vol] 97.9 fL Normal 80.0-100.0 [facility] Comment on above: Order Comment: Speci men Type: BLOOD SPECIMEN Ordering Facility: [facility] Address: [address] [place] [address] Performed By: #### 5 7021-8 #### [facility] CLIA [id number] [address] [place] [address] [place] Monocytes (Bld) [#/Vol] 0.50 10*3/uL Normal <0.87 [facility] Comment on above: Order Comment: Speci men Type: BLOOD SPECIMEN Ordering Facility: [facility] Address: [address] [place] [address] Performed By: #### 5 7021-8 #### [facility] CLIA [id number] [address] [place] [address] [place] Monocytes/100 WBC (Bld) 11.2 % Normal [facility] Comment on above: Order Comment: Speci men Type: BLOOD SPECIMEN Ordering Facility: [facility] Address: [address] [place] [address] Performed By: #### 5 7021-8 #### [facility] CLIA [id number] [address] [place] [address] [place] Neutrophils (Bld) [#/Vol] 1.94 10*3/uL Normal 1.45-7.50 [facility] Comment on above: Order Comment: Speci men Type: BLOOD SPECIMEN Ordering Facility: [facility] Address: [address] [place] [address] Performed By: #### 5 7021-8 #### [facility] CLIA [id number] [address] [place] [address] [place] Neutrophils/100 WBC (Bld) 43.7 % Normal [facility] Comment on above: Order Comment: Speci men Type: BLOOD SPECIMEN Ordering Facility: [facility] Address: [address] [place] [address] Performed By: #### 5 7021-8 #### [facility] CLIA [id number] [address] [place] [address] [place] Nucleated RBC (Bld) [#/Vol] 10*3/uL Normal <0.01 [facility] Comment on above: Order Comment: Speci men Type: BLOOD SPECIMEN Ordering Facility: [facility] Address: [address] [place] [address] Performed By: #### 5 7021-8 #### [facility] CLIA [id number] [address] [place] [address] [place] Nucleated RBC/100 WBC (Bld) [Ratio] 0.0 /100 WBC Normal [facility] Comment on above: Order Comment: Speci men Type: BLOOD SPECIMEN Ordering Facility: [facility] Address: [address] [place] [address] Performed By: #### 5 7021-8 #### [facility] CLIA [id number] [address] [place] [address] [place] Platelet mean volume (Bld) [Entitic vol] 12.3 fL Normal 9.0-12.7 [facility] Comment on above: Order Comment: Speci men Type: BLOOD SPECIMEN Ordering Facility: [facility] Address: [address] [place] [address] Performed By: #### 5 7021-8 #### [facility] CLIA [id number] [address] [place] [address] [place] Platelets (Bld) [#/Vol] 213 10*3/uL Normal 150-400 [facility] Comment on above: Order Comment: Speci men Type: BLOOD SPECIMEN Ordering Facility: [facility] Address: [address] [place] [address] Performed By: #### 5 7021-8 #### [facility] CLIA [id number] [address] [place] [address] [place] RBC (Bld) [#/Vol] 4.20 10*6/uL Normal 3.90-5.20 [facility] Comment on above: Order Comment: Speci men Type: BLOOD SPECIMEN Ordering Facility: [facility] Address: [address] [place] [address] Performed By: #### 5 7021-8 #### [facility] CLIA [id number] [address] [place] [address] [place] WBC (Bld) [#/Vol] 4.45 10*3/uL Normal 3.70-11.00 [facility] Comment on above: Order Comment: Speci men Type: BLOOD SPECIMEN Ordering Facility: [facility] Address: [address] [place] [address] Performed By: #### 5 7021-8 #### [facility] CLIA [id number] [address] [place] [address] [place] Comprehensive metabolic 2000 panelon 01-07-2024 Albumin [Mass/Vol] 4.2 g/dL Normal 3.9-4.9 [facility] Comment on above: Order Comment: Speci men Type: BLOOD SPECIMEN Ordering Facility: [facility] Address: [address] [place] [address] Performed By: #### L [id number], 40642-1, 57712-0 #### [facility] CLIA [id number] [address] [place] [address] [place] ALP [Catalytic activity/Vol] 57 U/L Normal 34-123 [facility] Comment on above: Order Comment: Speci men Type: BLOOD SPECIMEN Ordering Facility: [facility] Address: [address] [place] [address] Performed By: #### L [id number], 21714-2, #### [facility] CLIA [id number] [address] [place] [address] [place] ALT [Catalytic activity/Vol] 9 U/L Normal 7-38 [facility] Comment on above: Order Comment: Speci men Type: BLOOD SPECIMEN Ordering Facility: [facility] Address: [address] [place] [address] Performed By: #### L [id number], , #### [facility] CLIA [id number] [address] [place] [address] [place] Anion gap [Moles/Vol] 14 mmol/L Normal 8-15 [facility] Comment on above: Order Comment: Speci men Type: BLOOD SPECIMEN Ordering Facility: [facility] Address: [address] [place] [address] Performed By: #### L [id number], , #### [facility] CLIA [id number] [address] [place] [address] [place] AST [Catalytic activity/Vol] 23 U/L Normal 13-35 [facility] Comment on above: Order Comment: Speci men Type: BLOOD SPECIMEN Ordering Facility: [facility] Address: [address] [place] [address] Result Comment: Resu lts may be falsely increased due to interference from hemolysis. Suggest reorder as clinically indicated. Performed By: #### L [id number], , #### [facility] CLIA [id number] [address] [place] [address] [place] Bilirubin [Mass/Vol] 0.5 mg/dL Normal 0.2-1.3 [facility] Comment on above: Order Comment: Speci men Type: BLOOD SPECIMEN Ordering Facility: [facility] Address: [address] [place] [address] Performed By: #### L [id number], , #### [facility] CLIA [id number] [address] [place] [address] [place] Calcium [Mass/Vol] 9.5 mg/dL Normal 8.5-10.2 [facility] Comment on above: Order Comment: Speci men Type: BLOOD SPECIMEN Ordering Facility: [facility] Address: [address] [place] [address] Performed By: #### L [id number], , #### [facility] CLIA [id number] [address] [place] [address] [place] Chloride [Moles/Vol] 102 mmol/L Normal 98-107 [facility] Comment on above: Order Comment: Speci men Type: BLOOD SPECIMEN Ordering Facility: [facility] Address: [address] [place] [address] Performed By: #### L [id number], , #### [facility] CLIA [id number] [address] [place] [address] [place] CO2 [Moles/Vol] 22 mmol/L Normal 22-30 [facility] Comment on above: Order Comment: Speci men Type: BLOOD SPECIMEN Ordering Facility: [facility] Address: [address] [place] [address] Performed By: #### L [id number], , #### [facility] CLIA [id number] [address] [place] [address] [place] Creatinine [Mass/Vol] 0.85 mg/dL Normal 0.58-0.96 [facility] Comment on above: Order Comment: Sixto toribio Type: BLOOD SPECIMEN Ordering Facility[facility] Address: [address] [place] [address] Performed By: #### L [id number], 76603-6, #### [facility] CLIA [id number] [address] [place] [address] [place] Creatinine and Glomerular filtration rate.predicted panel (S/P/Bld) 66 mL/min/1.73m??? Normal >=60 [facility] Comment on above: Order Comment: Sixto toribio Type: BLOOD SPECIMEN Ordering Facility: [facility] Address: [address] [place] [address] Result Comment: Jody mated Glomerular Filtration Rate (eGFR) is calculated using the 2020 CKD-EPI creatinine equation. This equation utilizes serum creatinine, sex, and age as parameters. The creatinine assay has traceable calibration to isotope dilution-mass spectrometry. Refer to KDIGO guidelines for clinical interpretation. In patients with unstable renal function, e.g. those with acute kidney injury, the eGFR may not accurately reflect actual GFR. Performed By: #### L [id number], 74315-3, #### [facility] CLIA [id number] [address] [place] [address] [place] Glucose [Mass/Vol] 83 mg/dL Normal 74-99 [facility] Comment on above: Order Comment: Sixto toribio Type: BLOOD SPECIMEN Ordering Facility: [facility] Address: [address] [place] [address] Result Comment: The [place] Diabetes Association (ADA) provides guidance for cutoff values for fasting glucose and random glucose. The ADA defines fasting as no caloric intake for at least 8 hours. Fasting plasma glucose results between 100 to 125 mg/dL indicate increased risk for diabetes (prediabetes). Fasting plasma glucose results greater than or equal to 126 mg/dL meet the criteria for diagnosis of diabetes. In the absence of unequivocal hyperglycemia, results should be confirmed by repeat testing. In a patient with classic symptoms of hyperglycemia or hyperglycemic crisis, random plasma glucose results greater than or equal to 200 mg/dL meet the criteria for diagnosis of diabetes. Reference: Standards of Medical Care in Diabetes 2016, [employer] Diabetes Association. Diabetes Care. 2016.39(Suppl 1). Performed By: #### L [id number], , #### [facility] CLIA [id number] [address] [place] [address] [place] Potassium [Moles/Vol] 4.0 mmol/L Normal 3.7-5.1 [facility] Comment on above: Order Comment: Speci men Type: BLOOD SPECIMEN Order[facility] Address: [address] [place] [address] Performed By: #### L [id number], , #### [facility] CLIA [id number] [address] [place] [address] [place] Protein [Mass/Vol] 7.6 g/dL Normal 6.3-8.0 [facility] Comment on above: Order Comment: [place] Type: BLOOD SPECIMEN Order[facility] Facility[facility] Address: [address] [place] [address] Performed By: #### L [id number], , #### [facility] CLIA [id number] [address] [place] [address] [place] Sodium [Moles/Vol] 138 mmol/L Normal 136-144 [facility] Comment on above: Order Comment: Speci men Type: BLOOD SPECIMEN Ordering Facility[facility] Address: [address] [place] [address] Performed By: #### L [id number], , #### [facility] CLIA [id number] [address] [place] [address] [place] Urea nitrogen [Mass/Vol] 15 mg/dL Normal 7-21 [facility] Comment on above: Order Comment: Speci men Type: BLOOD SPECIMEN Order[facility] Facility[facility] Address: [address] [place] [address] Performed By: #### L [id number], 52805-3, 52517-9 #### [facility] CLIA [id number] [address] [place] [address] [id number] [place] [address] OF LUX [id number] 01-07-2024 ECG01 Ventricular Rate : 69 BPM Atrial Rate : 69 BPM P-R Interval : 182 ms QRS Duration : 78 ms Q-T Interval : 422 ms QTC Calculation(Bazett) : 452 ms Calculated P [place] : 55 degrees Calculated R [place] : 40 degrees Calculated T [place] : 56 degrees NORMAL SINUS RHYTHM NONSPECIFIC ST ABNORMALITY ABNORMAL ECG 0341 Confirmed by ELLEN ALMODOVAR MD ([id number]), editor index ANGEL CASTELLANOS ([id number]) on 01/09/2024 11:11:28 AM NAME : GINA WORTHINGTON PID : [id number] : 1935 Gender : Female Race : ORD : Procedure Date : Jan 07 2024 03:38:09 Edit Date : Jan 09 2024 11:11:37 Diagnosis: NORMAL SINUS RHYTHM NONSPECIFIC ST ABNORMALITY ABNORMAL ECG 0341 Confirmed by ELLEN ALMODOVAR MD ([id number]), editor index ANGEL CASTELLANOS ([id number]) on 01/09/2024 11:11:28 AM Test Reason : Location : 2 : EDNS 029 Overread By : ELLEN ALMODOVAR MD Edited By : ANGEL CASTELLANOS Referred By : , Acquired by : Alejandra CHO [facility] ED NOTEon 01-07-2024 ED NOTE HNO ID: [id number] Author: TAZ MORRIS RN Service: Emergency Medicine Author Type: Registered Nurse Type: ED Notes Filed: 01/10/2024 11:07 Note Text: Emergency Services: ED Call Back Questionnaire SERVICE DATE: 01/07/2024 Are you feeling better? No gets tired when walking, pt consulted her leave manager Any questions about discharge instructions and follow-up care? No Were you able to make a follow up appointment? No, referred to appointment hotline Do you have any further questions? No Is there anything that we could have done differently to improve your ED visit? No SIGNATURE: Taz Morris RN PATIENT NAME: Gina Worthington DATE: January 10, 2024 TIME: 11:06 AM Normal [facility] ED PROV NOTEon 01-07-2024 ED PROV NOTE HNO ID: [id number] Author: ELLEN ALMODOVAR MD Service: Emergency Medicine Author Type: Resident Type: ED Provider Notes Filed: 01/09/2024 15:49 Note Text: Attestation with edits by Ellen Almodovar MD at 01/09/2024 3:49 PM Attending Note I evaluated the patient and personally participated in the leung components. I agree with the resident's findings and plan as documented and have discussed the case and management of the patient's care with the resident. Signature: Ellen Almodovar MD Date: 01/09/2024 Time: 3:48 PM ED Provider Note Patient Name: Gina Worthington : 1935 SERVICE DATE: 01/07/24 History Patient presents with: Blood Pressure Check: Pt presenting with concerns of High BP at home. Per pt BP 212/120 and took her home dose Coreg and Lisinopril. BP during triage is 180/101. Denies CP/SOB/Headaches/ Patient is an 88-year-old female with past medical history of hypertension, hyperlipidemia, aortic stenosis, GERD, CAD, and prior DVT on Eliquis. Patient is reporting to the emergency department with a chief complaint of elevated blood pressure taken at home. Patient states that she was taking her nighttime medications when she was checking her blood pressure is found to be elevated to 212/120. Denies any specific symptoms at that time. However, she states that she felt a bit anxious, denies chest pain, palpitations, dyspnea. She denies any headaches tonight, feels slightly lightheaded. Denies any focal weakness, ambulating appropriately, no changes in her vision. She has had similar issues with her blood pressure in the past. She is currently being evaluated for a new aortic valve. During evaluation, patient notes that she has had a brief episode of right shoulder pain with radiation down toward her chest. Episode was self resolving and only lasted a few minutes. She denies recent syncope, fevers, chills, cough, congestion. Denies lower extremity edema, orthopnea. Patient states that she took her home dose of medication of Coreg and lisinopril. History provided by: Relative and patient PAST MEDICAL HISTORY Diagnosis Date Angina pectoris (HCC) CAD (coronary artery disease) Deep vein thrombosis (DVT) (HCC) bilateral GERD (gastroesophageal reflux disease) HLD (hyperlipidaemia) HTN (hypertension) Thrombophlebitis PAST SURGICAL HISTORY Procedure Laterality Date NONE FAMILY HISTORY Problem Relation Age of Onset other (CVA [Other]) Father , age 76 other ( during childbirth [Other]) Mother at 40 Social History Tobacco Use Smoking status: Never Smokeless tobacco: Never Substance and Sexual Activity Alcohol use: No Drug use: No Sexual activity: Not on file ALLERGIES Allergen Reactions Imdur [Isosorbide M* Intolerance headaches Z-Pack [Azithromyci* Other: See Comments, Unknown kidneys stop working Review of Systems Physical Exam Vitals [01/07/24 0224] BP Pulse Temp Temp src Resp SpO2 Weight Height 180/101 85 36.7 ?C (98.1 ?F) Oral 19 98 % 77.1 kg (170 lb) 1.575 m (5' 2) Physical Exam Vitals and nursing note reviewed. Constitutional: General: She is not in acute distress. Appearance: She is not toxic-appearing. HENT: Head: Normocephalic and atraumatic. Nose: No congestion or rhinorrhea. Mouth/Throat: Mouth: Mucous membranes are moist. Eyes: Extraocular Movements: Extraocular movements intact. Conjunctiva/sclera: Conjunctivae normal. Pupils: Pupils are equal, round, and reactive to light. Cardiovascular: Rate and Rhythm: Normal rate and regular rhythm. Heart sounds: Murmur heard. Pulmonary: Effort: Pulmonary effort is normal. No respiratory distress. Breath sounds: No wheezing or rhonchi. Abdominal: General: There is no distension. Palpations: Abdomen is soft. Tenderness: There is no abdominal tenderness. There is no guarding or rebound. Musculoskeletal: General: No tenderness. Right lower leg: No edema. Left lower leg: No edema. Skin: General: Skin is warm and dry. Findings: No erythema. Neurological: General: No focal deficit present. Mental Status: She is oriented to person, place, and time. Cranial Nerves: No cranial nerve deficit. Sensory: No sensory deficit. Motor: No weakness. Coordination: Coordination normal. Gait: Gait normal. Diagnostic Testing ED Labs Ordered and Reviewed HIGH SENSITIVITY TROPONIN T (INITIAL) - Abnormal; Notable for the following components: Result Value Ref Range KARINA High Sensitivity 13 (*) <12 ng/L All other components within normal limits COMPREHENSIVE METABOLIC PANEL - Normal MAGNESIUM - Normal COMPLETE BLOOD COUNT AND DIFFERENTIAL Results for orders placed or performed during the hospital encounter of 01/07/24 ECG COMPLETE (more content not included)... Normal [facility] HIGH SENSITIVITY TROPONIN T (INITIAL)on 01-07-2024 Troponin T.cardiac High sensitivity method [Mass/Vol] 13 ng/L High <12 [facility] Comment on above: Order Comment: Speci men Type: BLOOD SPECIMEN [facility] Address: [address] [place] [address] Performed By: #### L [id number], 38300-1, 91089-7 #### [facility] CLIA [id number] [address] [place] [address] [place] Magnesium SerPl-mCncon 01-06 Magnesium [Mass/Vol] 2.0 mg/dL Normal 1.7-2.3 [facility] Comment on above: Order Comment: Speci men Type: BLOOD SPECIMEN [facility] Address: [address] [place] [address] Performed By: #### L [id number], 00964-1, 88354-6 #### [facility] CLIA [id number] [address] [place] [address] [place] XR CHEST 2V FRONTAL/LATon XR CHEST 2V FRONTAL/LAT * * *Final Repor t* * * DATE OF EXAM: Jan 07 2024 5:31AM EGX 5291 - XR CHEST 2V FRONTAL/LAT / PROCEDURE REASON: Chest Pain * * * * Physician Interpretation * * * * EXAMINATION: CHEST RADIOGRAPH (2 VIEW FRONTAL and LATERAL) CLINICAL HISTORY: Chest Pain MQ: XC2_6 EXAM DATE/TIME: 01/07/2024 5:31 AM COMPARISON: No relevant prior studies available. RESULT: Lines, tubes, and devices: None. Lungs and pleura: No consolidation. No lung mass. No pleural effusion. No pneumothorax. Cardiomediastinal silhouette: Normal cardiomediastinal silhouette. Bones and soft tissues: Unremarkable. IMPRESSION: No acute radiographic abnormality. Senior Paralegal: ALBERT Transcribe Date/Time: Jan 07 2024 5:32A Dictated by : DIPAK CASAS MD This examination was interpreted and the report reviewed and electronically signed by: DIPAK CASAS MD on Jan 07 2024 5:33AM EST [id number] CN Normal [facility] CNPNon 12-26-2023 CNPN Telephone (CATHMN) GINA WORTHINGTON ([id number]) 1935 F T Date Time Provider Department 12/26/23 WHIT GEORGE During your visit today, we recorded the following information about you: Melissa Friend 12/26/2023 5:09 PM Signed Received referral to Dr. George for TAVR, uploaded under scanned documents Echo 12/21/2023 (No Images) CXR 01/23/2023 (No Images) Faxed request for images: Melissa Friend 01/03/2024 3:30 PM Addendum Echo films available under Get Images Call from patient's son regarding TAVR eval Advise of films available - states this should be everything. Consult to TAVR order has not been placed. Melissa Friend 01/04/2024 3:34 PM Signed Patient's daughter called to follow up. Consult to TAVR order placed Melissa Friend 01/04/2024 3:34 PM Signed Addended by: MELISSA FRIEND on: 01/04/2024 03:34 PM Modules accepted: Orders Allergies As of Date: 12/26/2023 Noted Allergy Reaction IMDUR (ISOSORBIDE MONONITRATE) 08/26/2014 5 - Intolerance Comments: headaches Z-PACK (AZITHROMYCIN) 08/26/2014 14 - Other: See Comments 16 - Unknown Comments: kidneys stop working Date Reviewed: 08/28/2014 Reviewed by: Wilda Acevedo (Melita) - Fully Assessed Reason for Visit: Received Outside Medical Records [4386] Primary Visit Diagnosis:Nonrheumat ic aortic (valve) stenosis [I35.0] Order(s):CONSULT TO TAVR/TMVR [[id number]] Order #: [id number]: 1 Prescriptions as of 01/04/2024 - warfarin (COUMADIN) 4 mg tablet Take 4 mg by mouth once daily. As directed every other day - coenzyme Q10 100 mg cap Take 100 mg by mouth once daily. - Cholecalciferol, Vitamin D3, 5,000 unit cap Take 5,000 Units by mouth once daily. - diltiazem CD (CARDIZEM CD, CARTIA XT) 120 mg 24 hr capsule Take 1 capsule by mouth once daily. - warfarin (COUMADIN) 5 mg tablet Take 5 mg by mouth daily as directed. - aspirin, enteric coated (ASPIRIN, ENTERIC COATED) 81 mg EC tablet Take 81 mg by mouth once daily. - atorvastatin (LIPITOR) 10 mg tablet Taking every other day - diltiazem CD (CARDIZEM CD, CARTIA XT) 180 mg 24 hr capsule Take 1 capsule by mouth once daily. Problem List As Of Date 12/26/2023 Noted Resolved CAD (coronary artery disease), lower [place] coronary *08/26/2014 S/P coronary artery stent placement [Z95.5] 08/26/2014 Chest pain [R07.9] 08/26/2014 DVT of lower extremity (deep venous thrombosis)*08/27/19 15 Hypertension [I10] 08/26/2014 Hyperlipidemia [E78.5] 08/26/2014 Statin intolerance [Z78.9] 08/26/2014 Encounter Status:Closed by MELISSA FRIEND on 12/26/23 [facility] CNPValeria 12-23-2023 CNPN Telephone ([facility]) GINA WORTHINGTON ([id number]) 1935 F Date Time Provider Department 12/23/23 [facility] During your visit today, we recorded the following information about you: José Luis Jett 12/23/2023 8:36 AM Signed RECEIVED CALL FROM: Family member - Name: Maria Victoria PATIENT INFORMATION: Name: Gina Collin HathawayWorthington : 1935 (home) Email: [email or web address] Referring Provider: No referring provider defined for this encounter. Phone: N/A Fax: Requested Surgeon: First Available/Unspecifie d Reason for appointment/diagnosi s : Aortic stenosis José Luis Jett December 23, 2023 8:34 AM Allergies As of Date: 12/23/2023 (Not on File) Date Reviewed: Never Reviewed Problem List As Of Date: 12/23/2023 (None) Encounter Status:Closed by JOSÉ LUIS JETT on 12/23/23 [facility] Nasopharyngeal Cultureon NAC No growth in 48 hours. [facility] Comment on above: Performed By: #### M 100.2000, M100.2500 ####[facility] [address] [place], [address] Gram Stainon 12-22-2023 GS Gram Stain 1+ White Blood Cells No organisms seen Normal [facility] Comment on above: Performed By: #### M 100.1999, M100.2500 ####[facility] [address] [place], [address] Cardiology Visit Reporton Cardiology Visit Report [facility] [address] [place] [address] OFFICE VISIT Date of Service: 12/21/23 MR#: [id number] Acct: [id number] Name: GINA WORTHINGTON Rep #: [id number] : 1935 Provider: GENA bennett Age/Sex: 88/F Location[facility] Status: Signed with Addenda ADDENDUM by GENA Lucas on 12/22/23 at 0856 Addendum Addendum Details:: Echocardiogram from 12/21/2023 received and reviewed. Peak aortic valve gradient was noted be 73 mmHg and mean aortic valve gradient is noted be 49 mmHg. Echocardiogram was reviewed with Dr. Lopez and it was mutually decided that patient should proceed with left heart catheterization along with TAVR evaluation. The patient was contacted on 12/22/2023 regarding the results and plan. Echocardiogram and treatment plan also reviewed with daughter. They will discuss it as a family and contact us once a decision is made. 12/22/23 0856 Date Erik Lucas NP cc: Dr. Amadou Liu MD * Signed HPI [facility] History of Present Illness Details: GINA WORTHINGTON, is an 88 F who presents to the office today for a cardiovascular visit. She has a history of coronary artery disease status post angioplasty and stenting of the right coronary artery in 2001, hypertension and DVT with IVC filter. She also has a history of valvular heart disease with aortic stenosis. She states chest discomfort with activity. This tends to improve with Pepcid. She denies radiation or secondary symptoms. This is located center of her chest. This is intermittent. This has been ongoing over the last year and is improving. She states intermittent palpitations. She states bilateral lower extremity edema, when sitting for long periods. She denies claudication. She denies shortness of breath with activity, shortness of breath at rest, orthopnea, or PND. She denies chronic cough. She denies significant, sudden weight gain. She states lightheadedness in the morning that appears to occurring randomly. This is not based on a position change. She denies dizziness, near-syncope, or syncope. She denies blood in urine, blood in stool, or epistaxis. He denies fever with chills. She denies myalgia. Her exercise level has remained stable though minimal on account of fatigue. Intake Vital Signs 11/29/23 11:19 12/21/23 08:59 12/21/23 09:00 Height 5 ft 2 in 5 ft 2 in 5 ft 2 in Weight: 158 lb BMI 28.9 BP 181/90 H Blood Pressure Location Lt brachial Position Sitting Respiration 18 Pulse 64 Pulse Source Monitor Pulse Oximetry (%) 100 Intake Visit Reasons: 3 WK FU per KR Help Desk Engineer Required: No Is patient in pain?: No Allergies azithromycin Allergy (Severe, Verified 12/21/23 08:59) Other pravastatin Adverse Reaction (Severe, Verified 12/21/23 08:59) mylagias Medications ???Medication ???Instructions ???Recorded ???Confirmed ???Type cholecalciferol (vitamin D3) 125 5,000 unit PO DAILY SUPPLEMENT 12/12/17 12/21/23 History mcg (5,000 unit) capsule coenzyme Q10 200 mg capsule 200 mg PO DAILY SUPPLEMENT 12/12/17 12/21/23 History nitroglycerin 0.4 mg sublingual 0.4 mg sublingual Q5M PRN ANGINA 06/19/20 12/21/23 Rx tablet #25 tabs apixaban 2.5 mg tablet (Eliquis) 2.5 mg PO BID 07/09/21 12/21/23 History famotidine 10 mg tablet (Pepcid AC) 10 mg PO ONCE PRN 12/06/22 12/21/23 History desoximetasone 0.25 % topical cream 1 applic topical DAILY PRN Fill as 02/09/23 12/21/23 Rx courtesy until pt obtains new Primary DrNelli #15 grams carvedilol 3.125 mg tablet 3.125 mg PO BID Dose decreased 02/23/23 12/21/23 Rx back to 3.125 bid #180 tabs multivitamin 1 tab PO DAILY 08/16/23 12/21/23 History lisinopril 10 mg tablet 10 mg PO BID #60 tabs 11/29/23 12/21/23 Rx Have you fallen in the past year?: No PFSH Medical History (Updated 12/21/23 @ 09:41 by Erik Lucas STORAGE CONSULTANT, STORAGE CONSULTANT-C) Deep vein thrombosis Obesity Essential (primary) hypertension Nonrheumatic aortic (valve) stenosis Hyperlipidemia Atherosclerotic heart disease of [place] coronary artery without angina pectoris Surgical History Hx of cataract surgery History of left heart catheterization (07/26/13) History of coronary artery stent placement (06/19/01) Family History Other CVA (cerebral vascular accident) Social History household members: none Smoking Status: Never smoker alcohol intake: current alcohol intake frequency: other substance use type: does not use ROS Const Const: Negative for fatigue, weakness, body ache, fever(s) or chills ENT ENT: Negative for dizziness or Nosebleed/epistaxis Cardio Ches (more content not included)... Normal [facility] Echo Completeon 12-21-2023 Echo [facility] [address] [place] [address] Echo Complete 12/21/23 0800 MR#: [id number] Acct: [id number] Name: GINA WORTHINGTON Rep #: [id number] : 1935 88 From: Octavio Lopez MD Attending Dr: Dr. Octavio Lopez MD Status: [facility] Shereen GUIDRY Ordering Dr: Octavio Lopez MD Date: 12/21/23 Location: CVS Sex: F C Admitted: Reason For Study: AORTIC STENOSIS Procedure This was a 2D Doppler, Color Flow transthoracic echocardiogram. The study was technically difficult. Exam performed in department. Left Ventricle Normal LV size. Moderate concentric left ventricular hypertrophy. Left ventricular systolic function is normal. The left ventricular ejection fraction is 70 %. Stage 1 diastolic dysfunction. No regional wall motion abnormalities noted. Right Ventricle Normal RV size. Normal systolic function. Atria Normal left atrium. Normal right atrium. Mitral Valve Mild (1+) eccentric mitral valve insufficiency. Tricuspid Valve Normal tricuspid valve. Mild tricuspid valve insufficiency. Pulmonary artery systolic pressure is 19 mmHg. Aortic Valve Trisinus/trileaflet aortic valve. Moderate focal aortic valve calcification. Peak aortic valve gradient 73 mmHg. Mean aortic valve gradient 49 mmHg. Severe aortic stenosis. Pulmonic Valve The pulmonic valve is not well visualized. Great Vessels Normal aortic root. Pericardium/Pleural No pericardial effusion. MMode/2D Measurements Calculations LVIDd: 2.8 cm IVSd: 1.7 cm LVOT diam: 2.0 cm LVIDs: 1.6 cm LVPWd: 1.5 cm LVOT area: 3.1 cm2 RVDd: 3.9 cm FS: 43.4 % _ asc Aorta Diam: 3.3 cm LAV(MOD-bp): 63.1 ml LVAd ap4: 16.6 cm2 LAV(MOD-bp) Indexed: 37.0 ml/m2 LVLd ap4: 6.8 cm LAV(MOD-sp2): 58.5 ml EDV(MOD-sp4): 33.5 ml LAV(MOD-sp4): 61.9 ml EDV(sp4-el): 34.5 ml LVAs ap4: 7.6 cm2 LVLs ap4: 5.2 cm ESV(MOD-sp4): 9.4 ml ESV(sp4-el): 9.5 ml EF(MOD-sp4): 71.9 % EF(sp4-el): 72.5 % _ LVAd ap2: 18.1 cm2 SV(MOD-sp4): 24.1 ml SV(MOD-sp2): 23.6 ml LVLd ap2: 7.1 cm EDV(MOD-sp2): 36.7 ml EDV(sp2-el): 39.2 ml LVAs ap2: 9.5 cm2 LVLs ap2: 5.5 cm ESV(MOD-sp2): 13.1 ml ESV(sp2-el): 13.7 ml EF(MOD-sp2): 64.4 % _ SV(sp4-el): 25.0 ml Ao sinus diam: 3.[address] Junction: 2.2 cm _ LA dimension(2D): 3.8 cm LA A4 area: 19.5 cm2 RA A4 area: 13.2 cm2 _ TAPSE: 1.5 cm Time Measurements MV dec time: 0.45 sec Doppler Measurements Calculations MV E max adrian: 72.1 cm/sec Lat Peak E' Adrian: 4.6 cm/sec Med Peak E' Adrian: 4.0 cm/sec MV A max adrian: 128.2 cm/sec E/E' lat: 15.6 E/E' med: 18.0 MV E/A: 0.56 _ MV V2 max: 137.7 cm/sec MV dec slope: 160.6 cm/sec2 Ao V2 max: 426.5 cm/sec MV max P.6 mmHg Ao max P.8 mmHg MV V2 mean: 74.9 cm/sec Ao V2 mean: 340.1 cm/sec MV mean P.6 mmHg Ao mean P.3 mmHg MV V2 VTI: 41.3 cm Ao V2 VTI: 120.3 cm MVA(VTI): 1.6 cm2 AV (velocity ratio): 0.18 GARRET(I,D): 0.56 cm2 GARRET(V,D): 0.61 cm2 _ LV V1 max: 85.1 cm/sec SV(LVOT): 67.5 ml PA V2 max: 102.5 cm/sec LV V1 max P.9 mmHg PA max PG (full): 2.5 mmHg LV V1 mean P.9 mmHg LV V1 mean: 66.8 cm/sec LV V1 VTI: 22.1 cm _ PI end-d adrian: 114.8 cm/sec TR max adrian: 203.8 cm/sec TR max P.6 mmHg ECHO/Echo Complete Interpretation Summary Normal LV size. Left ventricular systolic function is normal. Moderate concentric left ventricular hypertrophy. The left ventricular ejection fraction is 70 %. Stage 1 diastolic dysfunction. Moderate focal aortic valve calcification. Mean aortic valve gradient 49 mmHg. Severe aortic stenosis. Ordering Physician: Octavio Lopez Referring Physician: Octavio Lopez MD Performed By: Elvira Pro, [facility] 12/21/231413 Date Octavio Lopez MD CC: Dr. Amadou Liu MD; Dr. Octavio Lopez MD Date Dictated: 12/21/23 08 Date Transcribed: 12/21/231413 Senior Paralegal: Signed Normal [facility] Urine Cultureon 12-01-2023 URC Mixed Gram Positive Organisms [place] Count 1000-10,000 MIXC Mixed contaminants. Submit a new specimen if indicated. Normal [facility] Comment on above: Performed By: #### L 100.0100, M100.2200, L400.0001, L500.2500 ####[facility] [address] [place], [address] Basic Metabolic Profile (BMP )on 11-29-2023 BUN/CRE 16.2 RATIO Normal 10-20 [facility] Comment on above: Performed By: #### L 100.0100, M100.2200, L400.0001, L500.2500 ####[facility] [address] [place], [address] CA,Total 10.0 mg/dL Normal 8.5-10.1 [facility] Comment on above: Performed By: #### L 100.0100, M100.2200, L400.0001, L500.2500 ####[facility] [address] [place], [address] Chloride [Moles/Vol] 106 mmol/L Normal 98-107 [facility] Comment on above: Performed By: #### L 100.0100, M100.2200, L400.0001, L500.2500 ####[facility] [address] [place], [address] CO2 [Moles/Vol] 28.0 mmol/L Normal 21.0-32.0 [facility] Comment on above: Performed By: #### L 100.0100, M100.2200, L400.0001, L500.2500 ####[facility] [address] [place], [address] Creatinine [Mass/Vol] 0.80 mg/dL Normal 0.55-1.02 [facility] Comment on above: Result Comment: The validity of the calculated GFR GFRAA in patients over 70 years has not been determined. Clinical correlation is essential. Performed By: #### L 100.0100, M100.2200, L400.0001, L500.2500 ####[facility] [address] [place], [address] EST GFR - AA 87 mL/min Normal >60 [facility] Comment on above: Result Comment: Afri can Chinese GFR Calc Performed By: #### L 100.0100, M100.2200, L400.0001, L500.2500 ####[facility] [address] [place], [address] GAP 4 Low 5-15 [facility] Comment on above: Performed By: #### L 100.0100, M100.2200, L400.0001, L500.2500 ####[facility] [address] [place], [address] GFR/1.73 sq M.predicted among non-blacks MDRD (S/P/Bld) [Vol rate/Area] 72 mL/min/{1.73_m2} Normal >60 [facility] Comment on above: Result Comment: Non- GFR Calc Performed By: #### L 100.0100, M100.2200, L400.0001, L500.2500 ####[facility] [address] [place], [address] Glucose [Mass/Vol] 110 mg/dL High 74-106 [facility] Comment on above: Result Comment: Fast ing Glucose result from 100 to 125 mg/dL suggests IMPAIRED HOMEOSTASIS per A.D.A. criteria. Performed By: #### L 100.0100, M100.2200, L400.0001, L500.2500 ####[facility] [address] [place], [address] Potassium [Moles/Vol] 4.3 mmol/L Normal 3.5-5.1 [facility] Comment on above: Performed By: #### L 100.0100, M100.2200, L400.0001, L500.2500 ####[facility] [address] [place], [address] Sodium [Moles/Vol] 138 mmol/L Normal 136-145 [facility] Comment on above: Performed By: #### L 100.0100, M100.2200, L400.0001, L500.2500 ####[facility] [address] [place], [address] Urea nitrogen [Mass/Vol] 13 mg/dL Normal 7-18 [facility] Comment on above: Performed By: #### L 100.0100, M100.2200, L400.0001, L500.2500 ####[facility] [address] [place], [address] CBC W/Diff, Automatedon 11-06 Absolute Lymph 1.33 X10 3/uL Normal 0.83-4.51 [facility] Comment on above: Performed By: #### L 100.0100, M100.2200, L400.0001, L500.2500 ####[facility] [address] [place], [address] Absolute Neut 2.8 X10 3/uL Normal 2.0-7.7 [facility] Comment on above: Performed By: #### L 100.0100, M100.2200, L400.0001, L500.2500 ####[facility] [address] [place], [address] Basophils/100 WBC (Bld) 0.7 % Normal 0-1 [facility] Comment on above: Performed By: #### L 100.0100, M100.2200, L400.0001, L500.2500 ####[facility] [address] [place], [address] Eosinophils/100 WBC (Bld) 1.3 % Normal 0-5 [facility] Comment on above: Performed By: #### L 100.0100, M100.2200, L400.0001, L500.2500 ####[facility] [address] [place], [address] Erythrocyte distribution width (RBC) [Ratio] 13.9 % Normal 11.6-14.6 [facility] Comment on above: Performed By: #### L 100.0100, M100.2200, L400.0001, L500.2500 ####[facility] [address] [place], [address] Hematocrit (Bld) [Volume fraction] 42.5 % Normal 37-47 [facility] Comment on above: Performed By: #### L 100.0100, M100.2200, L400.0001, L500.2500 ####[facility] [address] [place], [address] Hemoglobin (Bld) [Mass/Vol] 14.1 g/dL Normal 12.0-15.0 [facility] Comment on above: Performed By: #### L 100.0100, M100.2200, L400.0001, L500.2500 ####[facility] [address] [place], [address] IG% 0.400 Normal 0.0-0.9 [facility] Comment on above: Result Comment: IG% - Immature Granulocytes (promyelocytes, myelocytes and metamyelocytes) > 1% indicates that a LEFT SHIFT is Present. Performed By: #### L 100.0100, M100.2200, L400.0001, L500.2500 ####[facility] [address] [place], [address] Lymphocytes/100 WBC (Bld) 29.2 % Normal 19-41 [facility] Comment on above: Performed By: #### L 100.0100, M100.2200, L400.0001, L500.2500 ####[facility] [address] [place], [address] MCH (RBC) [Entitic mass] 32.1 pg High 27.0-32.0 [facility] Comment on above: Performed By: #### L 100.0100, M100.2200, L400.0001, L500.2500 ####[facility] [address] [place], [address] MCHC (RBC) [Mass/Vol] 33.2 g/dL Normal 32-36 [facility] Comment on above: Performed By: #### L 100.0100, M100.2200, L400.0001, L500.2500 ####[facility] [address] [place], [address] MCV (RBC) [Entitic vol] 96.8 fL Normal 81-99 [facility] Comment on above: Performed By: #### L 100.0100, M100.2200, L400.0001, L500.2500 ####[facility] [address] [place], [address] Monocytes/100 WBC (Bld) 7.5 % Normal 0-10 [facility] Comment on above: Performed By: #### L 100.0100, M100.2200, L400.0001, L500.2500 ####[facility] [address] [place], [address] Neutrophils/100 WBC (Bld) 60.9 % Normal 47-70 [facility] Comment on above: Performed By: #### L 100.0100, M100.2200, L400.0001, L500.2500 ####[facility] [address] [place], [address] Nucleated RBC (Bld) [#/Vol] 0 10*3/uL Normal 0-5 [facility] Comment on above: Performed By: #### L 100.0100, M100.2200, L400.0001, L500.2500 ####[facility] [address] [place], [address] Platelet mean volume (Bld) [Entitic vol] 11.3 fL Normal 6.2-12.0 [facility] Comment on above: Performed By: #### L 100.0100, M100.2200, L400.0001, L500.2500 ####[facility] [address] [place], [address] Platelets (Bld) [#/Vol] 234 10*3/uL Normal 150-450 [facility] Comment on above: Performed By: #### L 100.0100, M100.2200, L400.0001, L500.2500 ####[facility] [address] [place], [address] RBC (Bld) [#/Vol] 4.39 10*6/uL Normal 4.2-5.[address] [facility] Comment on above: Performed By: #### L 100.0100, M100.2200, L400.0001, L500.2500 ####[facility] [address] [place], [address] RDW SD 50.0 fl High 35.1-43.9 [facility] Comment on above: Performed By: #### L 100.0100, M100.2200, L400.0001, L500.2500 ####[facility] [address] [place], [address] WBC (Bld) [#/Vol] 4.6 10*3/uL Normal 4.4-11.0 [facility] Comment on above: Performed By: #### L 100.0100, M100.2200, L400.0001, L500.2500 ####[facility] [address] [place], [address] Cardiology Visit Reporton Cardiology Visit Report [facility] [address] [place] [address] OFFICE VISIT Date of Service: 11/29/23 MR#: [id number] Acct: [id number] Name: GINA WORTHINGTON Rep #: [id number] : 1935 Provider: GENA cassidy Age/Sex: 88/F Location: [facility] [place] Status: Signed [facility] HPI History of Present Illness Details: GINA WORTHINGTON, is an 88 F who presents to the office today for an urgent cardiovascular visit. She has a history of coronary artery disease status post angioplasty and stenting of the right coronary artery in 2001, hypertension and DVT. She also has a history of valvular heart disease with aortic stenosis. She states she was at the ER about 3 weeks ago with hypertension. From a cardiac standpoint, the patient is doing well. She denies any palpitations. She does acknowledge chest pressure. She does acknowledge SOB with exertion. She denies Orthopnea, and PND. She does not have bleeding issues; no blood in urine, stool or nosebleeds. She does acknowledge a decrease in energy level. She denies myalgias, or claudication. She does not have edema, or sudden weight gain. She does acknowledge dizziness. She denies lightheadedness, syncopal or near syncopal episodes, and headaches. 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 Required: No Accompanied by: Daughter Is patient in pain?: Yes (Left side headache) Pain scale (1-10): 3 Allergies azithromycin Allergy (Severe, Verified 11/29/23 16:00) Other pravastatin Adverse Reaction (Severe, Verified 11/29/23 16:00) mylagias Medications ???Medication ???Instructions ???Recorded ???Confirmed ???Type cholecalciferol (vitamin D3) 125 5,000 unit PO DAILY SUPPLEMENT 12/12/17 11/29/23 History mcg (5,000 unit) capsule coenzyme Q10 200 mg capsule 200 mg PO DAILY SUPPLEMENT 12/12/17 11/29/23 History nitroglycerin 0.4 mg sublingual 0.4 mg sublingual Q5M PRN ANGINA 06/19/20 11/29/23 Rx tablet #25 tabs apixaban 2.5 mg tablet (Eliquis) 2.5 mg PO BID 07/09/21 11/29/23 History famotidine 10 mg tablet (Pepcid AC) 10 mg PO ONCE PRN 12/06/22 11/29/23 History desoximetasone 0.25 % topical cream 1 applic topical DAILY PRN Fill as 02/09/23 11/29/23 Rx courtesy until pt obtains new Primary DrNelli #15 grams carvedilol 3.125 mg tablet 3.125 mg PO BID Dose decreased 02/23/23 11/29/23 Rx back to 3.125 bid #180 tabs multivitamin 1 tab PO DAILY 08/16/23 11/29/23 History lisinopril 10 mg tablet 10 mg PO BID #60 tabs 11/29/23 11/29/23 Rx Have you fallen in the past year?: No PFSH Medical History Obesity Deep vein thrombosis Essential (primary) hypertension Nonrheumatic aortic (valve) stenosis Hyperlipidemia Atherosclerotic heart disease of [place] coronary artery without angina pectoris Surgical History Hx of cataract surgery History of left heart catheterization (07/26/13) History of coronary artery stent placement (06/19/01) Family History Other CVA (cerebral vascular accident) Social History household members: none Smoking Status: Never smoker alcohol intake: current alcohol intake frequency: other substance use type: does not use ROS Const Const: Positive for fatigue and headache(s) (Left sided h/a); Negative for weakness, body ache, fever(s), chills, frequent falls, night sweats, daytime sleepiness, difficulty sleeping, excessive sweating, weight gain, weight loss, increased appetite, poor appetite, anorexia or other Eyes Eyes: Negative for blind spots, loss of peripheral vision, transient loss of vision, blurry vision, change in vision, double vision, floaters, tunnel vision or other ENT ENT: Positive for headache(s) (Left sided h/a) and dizziness; Negative for hearing loss, tinnitus, Nosebleed/epistaxis, balance problems, post nasal drip, lip swelling, tongue swelling, bleeding gums, hoarseness, neck pain, dry mouth or other Cardio Chest Pain: Yes (had some chest pressure this am) Character: other (pressure) Location: mid sternal Exacerbation: other (spontaneous ) Palpitations: No Edema: None Muscle aches with walking: None Resp Respiratory: Positive for SOB with activity; Negative for SOB at rest, SOB orthopnea SOB lying down, Cough, Coughing up blood/hemoptysis, chest congestion, pain on inspiration, snoring, stridor, wheezing, crackles, paroxysmal nocturnal dyspnea or other GI GI: Negative na (more content not included)... Normal [facility] Urinalysis, Completeon 11-28 BACTERIA 1+ /hpf Normal None Seen [facility] Comment on above: Order Comment: [facility] CT[facility] TO SPECIFY Performed By: #### L 100.0100, M100.2200, L400.0001, L500.2500 ####[facility] [address] [place], [address] EPI,SQUAMOUS 0-5 SEEN Normal 5-10 [facility] Comment on above: Order Comment: [facility] TO SPECIFY Performed By: #### L 100.0100, M100.2200, L400.0001, L500.2500 ####[facility] [address] [place], [address] Mucus Ql (Urine sed) 0 SEEN Normal [facility] Comment on above: Order Comment: [facility] CT[facility] TO SPECIFY Performed By: #### L 100.0100, M100.2200, L400.0001, L500.2500 ####[facility] [address] [place], [address] RBC 0 SEEN Normal 0-5 [facility] Comment on above: Order Comment: [facility] CTOR TO SPECIFY Performed By: #### L 100.0100, M100.2200, L400.0001, L500.2500 ####[facility] [address] [place], [address] WBC 0 SEEN Normal 0-5 [facility] Comment on above: Order Comment: [facility] CTOR TO SPECIFY Performed By: #### L 100.0100, M100.2200, L400.0001, L500.2500 ####[facility] [address] [place], [address] 12 Lead EKGon 11-08-2023 12 Lead EKG [facility] Cardiovascular Services [address] [place] [address] 12 Lead EKG 11/08/23 0115 MR#: [id number] Acct: [id number] Name: GINA WORTHINGTON Rep #: [id number] : 1935 88 From: Octavio Lopez MD Attending Dr: Status: DEP ER Ordering Dr: Riuz Luo DO Date: 11/08/23 Location: ED Sex: F C Admitted: Test Reason : HTN Blood Pressure : / mmHG Vent. 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 Amadou Liu MD; Ruiz Luo DO Signed Normal [facility] Basic Metabolic Profile (BMP )on 11-08-2023 BUN/CRE 21.0 RATIO High 10-20 [facility] Comment on above: Order Comment: 'TROP ' Serial specimen #1, #2 or #3: 1 Performed By: #### L 500.2500, L501.4020, L100.0100 ####[facility] [address] [place], [address] CA,Total 9.2 mg/dL Normal 8.5-10.1 [facility] Comment on above: Order Comment: 'TROP ' Serial specimen #1, #2 or #3: 1 Performed By: #### L 500.2500, L501.4020, L100.0100 ####[facility] [address] [place], [address] Chloride [Moles/Vol] 108 mmol/L High 98-107 [facility] Comment on above: Order Comment: 'TROP ' Serial specimen #1, #2 or #3: 1 Performed By: #### L 500.2500, L501.4020, L100.0100 ####[facility] [address] [place], [address] CO2 [Moles/Vol] 27.0 mmol/L Normal 21.0-32.0 [facility] Comment on above: Order Comment: 'TROP ' Serial specimen #1, #2 or #3: 1 Performed By: #### L 500.2500, L501.4020, L100.0100 ####[facility] [address] [place], [address] Creatinine [Mass/Vol] 0.86 mg/dL Normal 0.55-1.02 [facility] Comment on above: Order Comment: 'TROP ' Serial specimen #1, #2 or #3: 1 Result Comment: The validity of the calculated GFR GFRAA in patients over 70 years has not been determined. Clinical correlation is essential. Performed By: #### L 500.2500, L501.4020, L100.0100 ####[facility] [address] [place], [address] ECRCL 42.53 ml/min Normal [facility] Comment on above: Order Comment: 'TROP ' Serial specimen #1, #2 or #3: 1 Performed By: #### L 500.2500, L501.4020, L100.0100 ####[facility] [address] [place], [address] EST GFR - AA 80 mL/min Normal >60 [facility] [facility] Comment on above: Order Comment: 'TROP ' Serial specimen #1, #2 or #3: 1 Result Comment: Afri can Chinese GFR Calc Performed By: #### L 500.2500, L501.4020, L100.0100 ####[facility] [address] [place], [address] GAP 4 Low 5-15 [facility] Comment on above: Order Comment: 'TROP ' Serial specimen #1, #2 or #3: 1 Performed By: #### L 500.2500, L501.4020, L100.0100 ####[facility] [address] [place], [address] GFR/1.73 sq M.predicted among non-blacks MDRD (S/P/Bld) [Vol rate/Area] 67 mL/min/{1.73_m2} Normal >60 [facility] Comment on above: Order Comment: 'TROP ' Serial specimen #1, #2 or #3: 1 Result Comment: Non- GFR Calc Performed By: #### L 500.2500, L501.4020, L100.0100 ####[facility] [address] [place], [address] Glucose [Mass/Vol] 104 mg/dL Normal 74-106 [facility] Comment on above: Order Comment: 'TROP ' Serial specimen #1, #2 or #3: 1 Result Comment: Fast ing Glucose result from 100 to 125 mg/dL suggests IMPAIRED HOMEOSTASIS per A.D.A. criteria. Performed By: #### L 500.2500, L501.4020, L100.0100 ####[facility] [address] [place], [address] Potassium [Moles/Vol] 3.9 mmol/L Normal 3.5-5.1 [facility] Comment on above: Order Comment: 'TROP ' Serial specimen #1, #2 or #3: 1 Performed By: #### L 500.2500, L501.4020, L100.0100 ####[facility] [address] [place], [address] Sodium [Moles/Vol] 139 mmol/L Normal 136-145 [facility] Comment on above: Order Comment: 'TROP ' Serial specimen #1, #2 or #3: 1 Performed By: #### L 500.2500, L501.4020, L100.0100 ####[facility] [address] [place], [address] Urea nitrogen [Mass/Vol] 18 mg/dL Normal 7-18 [facility] Comment on above: Order Comment: 'TROP ' Serial specimen #1, #2 or #3: 1 Performed By: #### L 500.2500, L501.4020, L100.0100 ####[facility] [address] [place], [address] Brain/Head without Contrasto n 11-08-2023 Brain/Head without Contrast [facility] Imaging Services [address] [place] [address] Brain/Head without Contrast MR#: [id number] Acct: [id number] Name: GINA WORTHINGTON Rep #: [id number] : 1935 F 88 From: Bernard Melendrez MD PCP: Dr. Amadou Liu MD Status: PRE ER Study: Brain/Head without Contrast Date of Exam: 05/28 Exam# [id number] Ordering Dr: Ruiz Luo DO [id number] EXAM: CT HEAD WITHOUT INTRAVENOUS CONTRAST CLINICAL INDICATION: MAYBERRY TECHNIQUE: Multiple axial images were obtained of the head without intravenous contrast. This CT exam was performed using one or more of the following dose reduction techniques: automated exposure control, adjustment of the mA and/or kV according to patient size, and/or use of iterative reconstruction technique. RADIATION DOSE: CTDIvol = 44.99 mGy, DLP = 796.11 mGy-cm COMPARISON: Noncontrast head CT from 08/21/2020 FINDINGS: BRAIN AND EXTRA-AXIAL SPACES: Diffuse cerebral volume loss. Periventricular small vessel ischemic changes. No intra- or extra-axial hemorrhage. No intracranial mass or mass effect. Posterior fossa structures are unremarkable. No hydrocephalus. Basal cisterns are patent. BONES/JOINTS: Unremarkable. No discrete lytic or blastic abnormalities. VASCULATURE: Vascular calcifications. SINUSES: Unremarkable as visualized. Clear. MASTOID AIR CELLS: Unremarkable. Clear. ORBITS: Visualized globes, extraocular muscles, optic nerves and retrobulbar fat appear unremarkable. CT/Brain/Head without Contrast IMPRESSION: 1. No acute intracranial abnormalities. 2. Age-related changes. Electronically Signed: Bernard Melendrez MD at 2:01 EDT , CC: Dr. Amadou Liu MD; Ruiz Luo DO Senior Paralegal: Signed Normal [facility] CBC W/Diff, Automatedon 09-0 -2023 Absolute Lymph 1.95 X10 3/uL Normal 0.83-4.51 [facility] Comment on above: Performed By: #### L 500.2500, L501.4020, L100.0100 ####[facility] [address] [place], [address] Absolute Neut 2.4 X10 3/uL Normal 2.0-7.7 [facility] Comment on above: Performed By: #### L 500.2500, L501.4020, L100.0100 ####[facility] [address] [place], [address] Basophils/100 WBC (Bld) 1.0 % Normal 0-1 [facility] Comment on above: Performed By: #### L 500.2500, L501.4020, L100.0100 ####[facility] [address] [place], [address] Eosinophils/100 WBC (Bld) 2.0 % Normal 0-5 [facility] Comment on above: Performed By: #### L 500.2500, L501.4020, L100.0100 ####[facility] [address] [place], [address] Erythrocyte distribution width (RBC) [Ratio] 14.0 % Normal 11.6-14.6 [facility] Comment on above: Performed By: #### L 500.2500, L501.4020, L100.0100 ####[facility] [address] [place], [address] Hematocrit (Bld) [Volume fraction] 40.4 % Normal 37-47 [facility] Comment on above: Performed By: #### L 500.2500, L501.4020, L100.0100 ####[facility] [address] [place], [address] Hemoglobin (Bld) [Mass/Vol] 13.3 g/dL Normal 12.0-15.0 [facility] Comment on above: Performed By: #### L 500.2500, L501.4020, L100.0100 ####[facility] [address] [place], [address] IG% 1.800 High 0.0-0.9 [facility] Comment on above: Result Comment: IG% - Immature Granulocytes (promyelocytes, myelocytes and metamyelocytes) > 1% indicates that a LEFT SHIFT is Present. Performed By: #### L 500.2500, L501.4020, L100.0100 ####[facility] [address] [place], [address] Lymphocytes/100 WBC (Bld) 38.2 % Normal 19-41 [facility] Comment on above: Performed By: #### L 500.2500, L501.4020, L100.0100 ####[facility] [address] [place], [address] MCH (RBC) [Entitic mass] 31.7 pg Normal 27.0-32.0 [facility] Comment on above: Performed By: #### L 500.2500, L501.4020, L100.0100 ####[facility] [address] [place], [address] MCHC (RBC) [Mass/Vol] 32.9 g/dL Normal 32-36 [facility] Comment on above: Performed By: #### L 500.2500, L501.4020, L100.0100 ####[facility] [address] [place], [address] MCV (RBC) [Entitic vol] 96.4 fL Normal 81-99 [facility] Comment on above: Performed By: #### L 500.2500, L501.4020, L100.0100 ####[facility] [address] [place], [address] Monocytes/100 WBC (Bld) 9.8 % Normal 0-10 [facility] Comment on above: Performed By: #### L 500.2500, L501.4020, L100.0100 ####[facility] [address] [place], [address] Neutrophils/100 WBC (Bld) 47.2 % Normal 47-70 [facility] Comment on above: Performed By: #### L 500.2500, L501.4020, L100.0100 ####[facility] [address] [place], [address] Nucleated RBC (Bld) [#/Vol] 0 10*3/uL Normal 0-5 [facility] Comment on above: Performed By: #### L 500.2500, L501.4020, L100.0100 ####[facility] [address] [place], [address] Platelet mean volume (Bld) [Entitic vol] 11.4 fL Normal 6.2-12.0 [facility] Comment on above: Performed By: #### L 500.2500, L501.4020, L100.0100 ####[facility] [address] [place], [address] Platelets (Bld) [#/Vol] 208 10*3/uL Normal 150-450 [facility] Comment on above: Performed By: #### L 500.2500, L501.4020, L100.0100 ####[facility] [address] [place], [address] RBC (Bld) [#/Vol] 4.19 10*6/uL Low 4.2-5.[address] [facility] Comment on above: Performed By: #### L 500.2500, L501.4020, L100.0100 ####[facility] [address] [place], [address] RDW SD 49.6 fl High 35.1-43.9 [facility] Comment on above: Performed By: #### L 500.2500, L501.4020, L100.0100 ####[facility] [address] [place], [address] WBC (Bld) [#/Vol] 5.1 10*3/uL Normal 4.4-11.0 [facility] Comment on above: Performed By: #### L 500.2500, L501.4020, L100.0100 ####[facility] [address] [place], [address] Emergency Department Summary on 11-08-2023 Emergency Department Summary [facility] Medical Records Department [address] [place] [address] Emergency Department Summary 11/08/23 MR#: [id number] Acct: [id number] Name: GINA WORTHINGTON Rep #: [id number] : 1935 88 From: Ruiz Luo DO PCP: Dr. Amadou Liu MD Status:DEP ER Location: ED HPI History of Present Illness Chief Complaint: Hypertension Informant: patient and family Narrative Narrative: Patient is an 88-year-old female with past medical history of hypertension and aortic stenosis. She takes carvedilol secondary to this. She states that her blood pressure will fluctuate greatly secondary to her . She states that this evening she felt slightly lightheaded/off and checked her blood pressure and it was elevated and therefore she took 2 carvedilol. Despite doing this there is no improvement of her blood pressure and therefore she presents for evaluation. She denies any recent stimulant use or illicit drug use and reports she has been taking her medication as directed [facility] Medical History Obesity Deep vein thrombosis Essential (primary) hypertension Nonrheumatic aortic (valve) stenosis Hyperlipidemia Atherosclerotic heart disease of [place] coronary artery without angina pectoris Home Medications ???Medication ???Instructions ???Recorded ???Last Taken ???Type cholecalciferol (vitamin D3) 125 5,000 unit PO DAILY SUPPLEMENT 12/12/17 11/20/19 History mcg (5,000 unit) capsule coenzyme Q10 200 mg capsule 200 mg PO DAILY SUPPLEMENT 12/12/17 11/20/19 History nitroglycerin 0.4 mg sublingual 0.4 mg sublingual Q5M PRN ANGINA 06/19/20 Unknown Rx tablet #25 tabs apixaban 2.5 mg tablet (Eliquis) 2.5 mg PO BID 07/09/21 Unknown History famotidine 10 mg tablet (Pepcid AC) 10 mg PO ONCE PRN 12/06/22 Unknown History desoximetasone 0.25 % topical cream 1 applic topical DAILY PRN Fill as 02/09/23 Unknown Rx courtesy until pt obtains new Primary #15 grams carvedilol 3.125 mg tablet 3.125 mg PO BID Dose decreased 02/23/23 Unknown Rx back to 3.125 bid #180 tabs multivitamin 1 tab PO DAILY 08/16/23 Unknown History amlodipine 2.5 mg tablet (Norvasc) 2.5 mg PO DAILY 30 days #30 tabs 11/08/23 Unknown Rx Allergy/AdvReac Type Severity Reaction Status Date / Time azithromycin Allergy Severe Other Verified 11/08/23 01:39 pravastatin AdvReac Severe mylagias Verified 11/08/23 01:39 Family History Other CVA (cerebral vascular accident) Surgical History Hx of cataract surgery History of left heart catheterization (07/26/13) History of coronary artery stent placement (06/19/01) Social History household members: none Smoking Status: Never smoker alcohol intake: current alcohol intake frequency: other substance use type: does not use ROS ROS ED Constitutional Constitutional ED: Denies chills or fever(s) Eyes Eyes: Denies blurry vision or change in vision ENT ENT ED: Denies sore throat Cardiovascular Cardiovascular: Denies chest pain, palpitations or racing heartbeat Respiratory/Chest Respiratory/Chest: Denies cough or dyspnea Gastrointestinal Gastrointestinal: Denies abdominal pain, diarrhea, nausea or vomiting Genitourinary Genitourinary ED: Denies dysuria Musculoskeletal Musculoskeletal: Denies myalgias or neck pain Integumentary Denies rash Neurologic Neurologic: Reports headache(s); Denies paresthesias or weakness Hematologic/Lymphati c Hematologic/Lymphati c: Reports easy bleeding and easy bruising EXAM Physical Exam Const Vital Signs: 11/08/23 00:34 11/08/23 00:34 11/08/23 00:37 Temperature 96.8 F L Temperature Source Temporal Pulse Rate 75 Respiratory Rate 18 Respiratory Effort Normal Non-Labored Respiratory Pattern Normal Blood Pressure 233/106 H 233/106 H Blood Pressure Mean 148 148 Pulse Ox 96 Oxygen Delivery Method Room Air 11/08/23 02:27 11/08/23 03:02 Temperature 97.1 F L 98.0 F Temperature Source Temporal Pulse Rate 55 L 59 L Respiratory Rate 15 18 Respiratory Effort Respiratory Pattern Blood Pressure 98/59 L 123/63 H Blood Pressure Mean 72 83 Pulse Ox 96 95 Oxygen Delivery Method Room Air Positive well nourished and well developed General Appearance ED: well developed; Negative for pallor HEENT HEENT Narrative: Normocephalic atraumatic Eyes PERRL and EOMs intact bilaterally General Eye ED: Negative for scleral icterus Neck supple and no JVD Resp normal respiratory effort and clear to auscultation bilaterally Cardio regular rate and regular rhythm Rate: other Other Details: Heart is r (more content not included)... Normal [facility] L501.4020on 11-08-2023 TROPONIN-I HS 12 pg/mL Normal 3.0-54.0 [facility] Comment on above: Order Comment: 'TROP ' Serial specimen #1, #2 or #3: 1 Result Comment: Milka leija Note: New Test Units and Gender Specific Reference Ranges. For more information see Policy Stat Procedure [place] High Sensitivity Troponin (TNIH) and attachments. Performed By: #### L 500.2500, L501.4020, L100.0100 ####[facility] [address] [place], [address] HEMOGLOBIN A1con 03-04-2023 HEMOGLOBIN A1c 5.8 % of total Hgb High <5.7 [facility] Comment on above: Result Comment: For someone without known diabetes, a hemoglobin A1c value between 5.7% and 6.4% is consistent with prediabetes and should be confirmed with a follow-up test. For someone with known diabetes, a value <7% indicates that their diabetes is well controlled. A1c targets should be individualized based on duration of diabetes, age, comorbid conditions, and other considerations. This assay result is consistent with an increased risk of diabetes. Currently, no consensus exists regarding use of hemoglobin A1c for diagnosis of diabetes for children. Performed By: #### 8 99, [id number], 496 #### [facility] [address], [address] [place], [place] [id number] Agent Ticketing Gate: Jay Ferro MD TSHon 03-04-2023 TSH Qn 2.48 m[IU]/L Normal 0.40-4.50 [facility] Comment on above: Order Comment: FASTI NG: NO Performed By: #### 8 99, [id number], 496 #### [facility] [address], [address] [place] [id number] Agent Ticketing Gate: Jay Ferro MD VITAMIN D,25-OH,TOTAL,IAon 1 VITAMIN D,25-OH,TOTAL,IA 64 ng/mL Normal 30-100 [facility] Comment on above: Result Comment: Yu min D Status 25-OH Vitamin D: Deficiency: <20 ng/mL Insufficiency: 20 - 29 ng/mL Optimal: > or = 30 ng/mL For 25-OH Vitamin D testing on patients on D2-supplementation and patients for whom quantitation of D2 and D3 fractions is required, the QuestAssure[facility](TM) 25-OH VIT D, (D2,D3), LC/MS/MS is recommended: order code 90349 (patients >2yrs). See Note 1 Note 1 For additional information, please refer to [email or web address]chan[employer]/faq/YQO194 (This link is being provided for informational/ educational purposes only.) Performed By: #### 8 99, [id number], 496 #### [facility] [address], [address] [place] [id number] Agent Ticketing Gate: Jay Ferro MD Absolute lymphocyte countOrd ered By: Mario Cruz on 01-23-2023 Lymphocytes Auto (Unsp spec) [#/Vol] 1.39 10*3/uL 0.83-4.51 [facility] Basophil percentageOrdered B y: Mario Cruz on 01-23-2023 Basophils/100 WBC (Bld) 0.6 % 0-1 [facility] Chloride [Moles/Vol] 106 mmol/L 98-107 [facility] Eosinophils/100 WBC (Bld) 0.8 % 0-5 [facility] Glucose [Mass/Vol] 98 mg/dL 74-106 [facility] Neutrophils (Bld) [#/Vol] 3.4 10*3/uL 2.0-7.7 [facility] Neutrophils/100 WBC (Bld) 63.9 % 47-70 [facility] Potassium [Moles/Vol] 4.2 mmol/L 3.5-5.1 [facility] Sodium [Moles/Vol] 138 mmol/L 136-145 [facility] WBC (Bld) [#/Vol] 5.3 10*3/uL 4.4-11.0 [facility] Blood erythrocytes count (nu mber/volume)Ordered By: Mario Cruz on 01-23-2023 RBC (Bld) [#/Vol] 4.02 10*6/uL 4.2-5.[address] [facility] Blood hemoglobin measurement (mass/volume)Ordered By: Mario Cruz on 01-23-2023 Hemoglobin (Bld) [Mass/Vol] 12.5 g/dL 12.0-15.0 [facility] Blood lymphocytes/100 leukoc ytesOrdered By: Mario Cruz on 01-23-2023 Lymphocytes/100 WBC (Bld) 26.2 % 19-41 [facility] Blood monocytes/100 leukocyt esOrdered By: Mario Cruz on 01-23-2023 Monocytes/100 WBC (Bld) 8.1 % 0-10 [facility] Blood platelet mean volumeOr dered By: Mario Crzu on 01-23-2023 Platelet mean volume (Bld) [Entitic vol] 10.7 fL 6.2-12.0 [facility] Determination of erythrocyte mean corpuscular volume (MCV)Ordered By: Mario Cruz on 01-23-2023 MCV (RBC) [Entitic vol] 97.0 fL 81-99 [facility] Hematocrit Auto (Bld) [Volum e fraction]Ordered By: Mario Cruz on 01-23-2023 Hematocrit (Bld) [Volume fraction] 39.0 % 37-47 [facility] Laboratory - Chemistry and C hemistry - challengeOrdered By: Mario Cruz on 01-23-2023 CO2 [Moles/Vol] 29.0 mmol/L 21.0-32.0 [facility] Urea nitrogen/Creatinine [Mass ratio] 27.4 mg/mg 10-20 [facility] Laboratory - Hematology and Cell countsOrdered By: Mario Cruz on 01-23-2023 Erythrocyte distribution width (RBC) [Entitic vol] 49.8 fL 35.1-43.9 [facility] Erythrocyte distribution width (RBC) [Ratio] 14.0 % 11.6-14.6 [facility] Immature granulocytes/100 WBC (Bld) 0.400 % 0.0-0.9 [facility] Comment on above: IG% - Immature Granu locytes (promyelocytes, myelocytes and metamyelocytes) > 1% indicates that a LEFT SHIFT is Present. MCH (RBC) [Entitic mass] 31.1 pg 27.0-32.0 [facility] Nucleated RBC/100 WBC (Bld) [Ratio] 0 % 0-5 [facility] MCHC Auto (RBC) [Mass/Vol]Or dered By: Mario Cruz on 01-23-2023 MCHC (RBC) [Mass/Vol] 32.1 g/dL 32-36 [facility] No Panel InformationOrdered By: Mario Cruz on 01-23-2023 Estimated Creatinine Clearance Calc 34.45 ml/min [facility] Estimated GFR (MDRD) Amer 75 mL/min >60 [facility] Comment on above: GFR Calc Estimated GFR (MDRD) Non-Af Amer 62 mL/min >60 [facility] Comment on above: Non- GFR Calc Troponin I High Sensitivity 11 pg/mL 3.0-54.0 [facility] Comment on above: Please Note: New Frannie t Units and Gender Specific Reference Ranges. For more information see Policy Stat Procedure [place] High Sensitivity Troponin (TNIH) and attachments. Platelets bldOrdered By: Jourdan Cruz on 01-23-2023 Platelets (Bld) [#/Vol] 225 10*3/uL 150-450 [facility] Serum or plasma calcium bony urement (mass/volume)Ordered By: Mario Cruz on 01-23-2023 Calcium [Mass/Vol] 9.1 mg/dL 8.5-10.1 [facility] Serum or plasma creatinine m easurement (mass/volume)Ordered By: Mario Cruz on 01-23-2023 Creatinine [Mass/Vol] 0.91 mg/dL 0.55-1.02 [facility] Comment on above: The validity of the calculated GFR & GFRAA in patients over 70 years has not been determined. Clinical correlation is essential. Serum or plasma urea nitroge n measurement (mass/volume)Ordered By: Mario Cruz on 01-23-2023 Urea nitrogen [Mass/Vol] 25 mg/dL 7-18 [facility] Thin prep Papanicolaou smear with manual screeningOrdered By: Mario Cruz on 01-23-2023 Thin prep Papanicolaou smear with manual screening 3 5-15 [facility] HEMOGLOBIN A1con 07-16-2022 HEMOGLOBIN A1c 5.5 % of total Hgb Normal <5.7 [facility] Comment on above: Result Comment: For the purpose of screening for the presence of diabetes: <5.7% Consistent with the absence of diabetes 5.7-6.4% Consistent with increased risk for diabetes (prediabetes) > or =6.5% Consistent with diabetes This assay result is consistent with a decreased risk of diabetes. Currently, no consensus exists regarding use of hemoglobin A1c for diagnosis of diabetes in children. According to [place] Diabetes Association (ADA) guidelines, hemoglobin A1c <7.0% represents optimal control in non- diabetic patients. Different metrics may apply to specific patient populations. Standards of Medical Care in Diabetes(ADA). Performed By: #### 8 99, 496 #### [facility] [address], [address] [place] [address] Agent Ticketing Gate: Jay Ferro MD TSHon 07-16-2022 TSH Qn 2.06 m[IU]/L Normal 0.40-4.50 [facility] Comment on above: Order Comment: FASTI NG: NO Performed By: #### 8 99, 496 #### [facility] [address], [address] [place], [place] [id number] Agent Ticketing Gate: Jay Ferro MD Absolute lymphocyte counton 06-15-2021 Lymphocytes Auto (Unsp spec) [#/Vol] 1.54 10*3/uL 0.83-4.51 [facility] Work Phone: Basophil percentageon 2021 Basophils/100 WBC (Bld) 0.4 % 0-1 [facility] Work Phone: Bilirubin [Mass/Vol] 0.40 mg/dL 0.20-1.00 [facility] Work Phone: Comment on above: For patients on eltr ombopag therapy, use of Dimension [place] TBIL is not recommended. Chloride [Moles/Vol] 99 mmol/L 98-107 [facility] Work Phone: Eosinophils/100 WBC (Bld) 2.0 % 0-5 [facility] Work Phone: Glucose [Mass/Vol] 89 mg/dL 74-106 [facility] Work Phone: Neutrophils (Bld) [#/Vol] 2.9 10*3/uL 2.0-7.7 [facility] Work Phone: Neutrophils/100 WBC (Bld) 56.3 % 47-70 [facility] Work Phone: Potassium [Moles/Vol] 4.0 mmol/L 3.5-5.1 [facility] Work Phone: Protein [Mass/Vol] 7.6 g/dL 6.4-8.2 [facility] Work Phone: Sodium [Moles/Vol] 134 mmol/L 136-145 [facility] Work Phone: [phone] WBC (Bld) [#/Vol] 5.1 10*3/uL 4.4-11.0 [facility] Work Phone: [phone] Blood erythrocytes count (nu mber/volume)on 06-15-2021 RBC (Bld) [#/Vol] 3.83 10*6/uL 4.2-5.4 [facility]: [phone] Blood hemoglobin measurement (mass/volume)on 06-15-2021 Hemoglobin (Bld) [Mass/Vol] 12.1 g/dL 12.0-15.0 [facility] Work Phone: Blood lymphocytes/100 leukoc yteson 06-15-2021 Lymphocytes/100 WBC (Bld) 30.3 % 19-41 [facility] Work Phone: Blood monocytes/100 leukocyt eson 06-15-2021 Monocytes/100 WBC (Bld) 10.8 % 0-10 [facility] Work Phone: Blood platelet mean volumeon 06-15-2021 Platelet mean volume (Bld) [Entitic vol] 11.2 fL 6.2-12.0 [facility] Work Phone: Determination of erythrocyte mean corpuscular volume (MCV)on 06-15-2021 MCV (RBC) [Entitic vol] 97.1 fL 81-99 [facility] Work Phone: Erythrocyte sedimentation ra karen 06-15-2021 ESR (Bld) [Velocity] 38 mm/h 0-30 [facility]: Hematocrit Auto (Bld) [Volum e fraction]on 06-15-2021 Hematocrit (Bld) [Volume fraction] 37.2 % 37-47 [facility] Work Phone: Laboratory - Chemistry and C hemistry - challengeon 06-15-2021 ALP [Catalytic activity/Vol] 61 U/L 45-117 [facility] Work Phone: ALT [Catalytic activity/Vol] 15 U/L 13-56 [facility] Work Phone: CO2 [Moles/Vol] 29.0 mmol/L 21.0-32.0 [facility] Work Phone: Globulin (S) [Mass/Vol] 4.3 g/dL 2.2-4.2 [facility] Work Phone: Urea nitrogen/Creatinine [Mass ratio] 29.5 mg/mg 10-20 [facility] Work Phone: Laboratory - Hematology and Cell countson 06-15-2021 Erythrocyte distribution width (RBC) [Entitic vol] 46.1 fL 35.1-43.9 [facility] Work Phone: Erythrocyte distribution width (RBC) [Ratio] 13.0 % 11.6-14.6 [facility] Work Phone: Immature granulocytes/100 WBC (Bld) 0.200 % 0.0-0.9 [facility] Work Phone: Comment on above: IG% - Immature Granu locytes (promyelocytes, myelocytes and metamyelocytes) > 1% indicates that a LEFT SHIFT is Present. MCH (RBC) [Entitic mass] 31.6 pg 27.0-32.0 [facility] Work Phone: Nucleated RBC/100 WBC (Bld) [Ratio] 0 % 0-5 [facility] Work Phone: MCHC Auto (RBC) [Mass/Vol]on 06-15-2021 MCHC (RBC) [Mass/Vol] 32.5 g/dL 32-36 [facility] Work Phone: No Panel Informationon 06-15 Anti-Nuclear Antibody Screen Negative Negative [facility] Work Phone: Comment on above: Performed at: [address] [id number] Director: Nirmal Isidro PhD, Phone: [phone] Estimated GFR (MDRD) Amer 100 mL/min >60 [facility] Work Phone: Comment on above: GFR Calc Estimated GFR (MDRD) Non-Af Amer 83 mL/min >60 [facility] Work Phone: Comment on above: Non- GFR Calc Hepatitis B Surface Antigen Non-Reactive Nonreactive [facility] Work Phone: Hepatitis C Antibody Non-Reactive Nonreactive W [facility] Work Phone: Comment on above: Non Reactive: < 0.8 Equivocal: >/= 0.8 to < 1.0 Reactive: >/= 1.0The CDC recommends that a reactive/equivocal HCV antibody result be followed up by the HCV Nucleic Acid Amplificationtest (833544) Platelets bldon 06-15-2021 Platelets (Bld) [#/Vol] 320 10*3/uL 150-450 [facility] Work Phone: Serum cyclic citrullinated p eptide IgG antibody assay (units/volume)on 06-15-2021 Cyclic citrullinated peptide IgG Qn 2 units [facility] Work Phone: Comment on above: Negative <20 Weak po sitive 20 - 39 Moderate positive 40 - 59 Strong positive >59Performed at: - [facility] [id number] [place], [place] [id number] Director: Shara Gilman MD, Phone: [phone] Serum hepatitis B virus surf kathleen antibody IgG detectionon 06-15-2021 HBV surface IgG Ql (S) Non-Reactive [facility] Work Phone: Comment on above: Non Reactive: Incons istent with immunity less than <10 mIU/mL Reactive: Consistent with immunity greater than or equal to 10 mIU/mL Serum or plasma C reactive p rotein measurement (mass/volume)on 06-15-2021 CRP [Mass/Vol] 27.40 mg/L 0.0-3.0 [facility] Work Phone: Comment on above: C-Reactive Protein ( CRP) provides useful information for thediagnosis, therapy and monitoring of inflammatory processesand associated diseases. For the evaluation of Relative Riskfor Cardiovascular Disease, a High Sensitivity CRP (HSCRP)should be ordered. Serum or plasma albumin bony urement (mass/volume)on 06-15-2021 Albumin [Mass/Vol] 3.3 g/dL 3.2-5.0 [facility] Work Phone: Serum or plasma albumin/glob ulin mass ratioon 06-15-2021 Albumin/Globulin [Mass ratio] 0.8 {ratio} 0.9-2.4 [facility] Work Phone: Serum or plasma calcium bony urement (mass/volume)on 06-15-2021 Calcium [Mass/Vol] 9.2 mg/dL 8.5-10.1 [facility] Work Phone: Serum or plasma creatinine m easurement (mass/volume)on 06-15-2021 Creatinine [Mass/Vol] 0.71 mg/dL 0.55-1.02 [facility] Work Phone: Comment on above: The validity of the calculated GFR & GFRAA in patients over 70 years has not been determined. Clinical correlation is essential. Serum or plasma urea nitroge n measurement (mass/volume)on 06-15-2021 Urea nitrogen [Mass/Vol] 21 mg/dL 7-18 [facility] Work Phone: Serum rheumatoid factor dete ctionon 06-15-2021 Rheumatoid factor Ql (S) < 10.0 IU/mL <15 [facility] Work Phone: Thin prep Papanicolaou smear with manual screeningon 06-15-2021 Thin prep Papanicolaou smear with manual screening 18 U/L 15-37 [facility] Work Phone: Thin prep Papanicolaou smear with manual screening 6 5-15 [facility] Work Phone: Office Visiton 11-25-2016 Documentation of current medications (procedure) Done Invalid Interpretation Code [facility] Work Phone: [phone] Fall risk assessment No Invalid Interpretation Code [facility] Work Phone: [phone] Protein mass conc Done Invalid Interpretation Code [facility] Work Phone: [phone] Office Visit: [facility] 06-03-19 17 Documentation of current medications (procedure) Done Invalid Interpretation Code [facility] Work Phone: [phone] Fall risk assessment No Invalid Interpretation Code [facility] Work Phone: [phone] Office Visiton 12-03-2015 Dietary management education, guidance, and counseling (procedure) yes Invalid Interpretation Code [place] [place] Phone: [phone] Tobacco smoking status NHIS Never smoker Invalid Interpretation Code [facility] Work Phone: [phone] Tobacco use CPHS Never smoker Invalid Interpretation Code [facility] Work Phone: [phone] Replaced Document: [facility] E CG Observationson 06-04-2015 EKG QRS axis 31 deg Invalid Interpretation Code [facility] Work Phone: [phone] electrocardiogram interpretation Sinus Rhythm WITHIN NORMAL LIMITS Invalid Interpretation Code [facility] Work Phone: [phone] GE use only - for [employer] import when terms are not otherwise specified 410 ms Invalid Interpretation Code [facility] Work Phone: [phone] Interpretation Sinus Rhythm WITHIN NORMAL LIMITS Invalid Interpretation Code [facility] Work Phone: [phone] P [place] 43 deg Invalid Interpretation Code [facility] Work Phone: [phone] P wave axis, electrocardiogram 43 deg Invalid Interpretation Code [facility] Work Phone: [phone] VT Interval 176 ms Invalid Interpretation Code [facility] Work Phone: [phone] VT interval, electrocardiogram 176 ms Invalid Interpretation Code [facility] Work Phone: [phone] Pulse (Heart Rate) 66 /min Invalid Interpretation Code [facility] Work Phone: [phone] QRS axis, electrocardiogram 31 deg Invalid Interpretation Code [facility] Work Phone: [phone] QRS Duration 84 ms Invalid Interpretation Code [facility] Work Phone: [phone] QRS duration, electrocardiogram 84 ms Invalid Interpretation Code [facility] Work Phone: [phone] QT Interval new path ms Invalid Interpretation Code [facility] Work Phone: [phone] QT interval, electrocardiogram new path ms Invalid Interpretation Code [facility] Work Phone: [phone] QTc Armstrong 410 ms Invalid Interpretation Code [facility] Work Phone: [phone] T [place] 55 deg Invalid Interpretation Code [facility] Work Phone: [phone] T wave axis, electrocardiogram 55 deg Invalid Interpretation Code [facility] Work Phone: [phone] Clinical Lists Updateon 05-06 Left ventricular Ejection fraction 65 % Invalid Interpretation Code [facility] Work Phone: [phone] Clinical Lists Update: Prelo editor index 09-16-2014 Alanine aminotransferase (ALT) 32 U/L Invalid Interpretation Code [facility] Work Phone: [phone] Albumin 3.5 g/dL Invalid Interpretation Code [facility] Work Phone: [phone] Albumin/Globulin Ratio 0.9 {ratio} Invalid Interpretation Code [facility] Work Phone: [phone] Alkaline phosphatase (ALP) 63 U/L Invalid Interpretation Code [facility] Work Phone: [phone] ALP enzyme act/vol (Bld) 63 U/L Invalid Interpretation Code [facility] Work Phone: [phone] Anion gap 8 mmol/L Invalid Interpretation Code [facility] Work Phone: [phone] Anion gap 4 molar conc 8 Invalid Interpretation Code [facility] Work Phone: [phone] Aspartate aminotransferase (AST) 27 U/L Invalid Interpretation Code [facility] [employer] Work Phone: [phone] basophils as percent of blood leukocytes, manual count 0.3 % Invalid Interpretation Code [facility] Work Phone: [phone] Bilirubin (total) 0.40 mg/dL Invalid Interpretation Code [facility] [employer] Work Phone: [phone] BUN/Creatinine Ratio 17.5 mg/mg Invalid Interpretation Code [facility] [employer] Work Phone: [phone] Calcium 9.1 mg/dL Invalid Interpretation Code [facility] [employer] Work Phone: [phone] Chloride 103 mmol/L Invalid Interpretation Code [facility] [employer] Work Phone: [phone] CO2 27.0 mmol/L Invalid Interpretation Code [facility] Work Phone: [phone] CO2 ppres (BldV) 27.0 mmol/L Invalid Interpretation Code [facility] [employer] Work Phone: [phone] Creatinine 0.8 mg/dL Invalid Interpretation Code [facility] [employer] Work Phone: [phone] eosinophils as percent of blood leukocytes, manual count 2.5 % Invalid Interpretation Code [facility] [employer] Work Phone: [phone] Erythrocytes (RBC) 4.02 10*6/uL Low [facility] [employer] Work Phone: [phone] Globulin 3.7 g/dL Invalid Interpretation Code [facility] [employer] Work Phone: [phone] Glucose 86 mg/dL Invalid Interpretation Code [facility] [employer] Work Phone: [phone] Glucose mass conc 86 mg/dL Invalid Interpretation Code [facility] [employer] Work Phone: [phone] Hematocrit (HCT) 39.6 % Invalid Interpretation Code [facility] [employer] Work Phone: [phone] Hemoglobin (HGB) 13.1 g/dL Invalid Interpretation Code [facility] Work Phone: [phone] Lymphocytes/100 leukocytes 37.6 % Invalid Interpretation Code [facility] [employer] Work Phone: [phone] MCH 32.6 pg High [facility] Work Phone: [phone] MCHC 33.1 g/dL Invalid Interpretation Code [facility] Work Phone: [phone] MCV 98.5 fL Invalid Interpretation Code [facility] Work Phone: [phone] Monocytes/100 leukocytes 9.8 % Invalid Interpretation Code [facility] Work Phone: [phone] neutrophils, band form as percent of blood leukocytes, manual count 49.5 % Invalid Interpretation Code [facility] Work Phone: [phone] Platelets 242 10*3/mm3 Invalid Interpretation Code [facility] Work Phone: [phone] PMV by [place] 11.0 fL Invalid Interpretation Code [facility] Work Phone: [phone] Potassium 4.3 mmol/L Invalid Interpretation Code [facility] Work Phone: [phone] Protein 7.2 g/dL Invalid Interpretation Code [facility] Work Phone: [phone] RDW-CA 13.2 % Invalid Interpretation Code [facility] Work Phone: [phone] Sodium 138 mmol/L Invalid Interpretation Code [facility] Work Phone: [phone] Thyroid stimulating hormone (TSH) 2.28 u[iU]/mL Invalid Interpretation Code [facility] Work Phone: [phone] Urea nitrogen 14 mg/dL Invalid Interpretation Code [facility] Work Phone: [phone] WBC (Leukocytes) 4.0 10*3/uL Low [facility] Work Phone: [phone] Office Visit: [facility] 07-11-19 15 Tobacco smoking status NHIS Never Invalid Interpretation Code [facility] Work Phone: [phone] Office Visit: [facility] 06-18-19 15 Cholesterol 244 mg/dL Invalid Interpretation Code [facility] Work Phone: [phone] Coagulation tissue factor induced in platelet poor plasma 2.3 s Invalid Interpretation Code [facility] Work Phone: [phone] HDL Cholesterol 45 mg/dL Invalid Interpretation Code [facility] Work Phone: [phone] LDL Cholesterol 152 mg/dL Invalid Interpretation Code [facility] Work Phone: [phone] Triglyceride 237 mg/dL Invalid Interpretation Code [facility] Work Phone: [phone] Office Visiton 04-11-2014 cardiac risk group C Invalid Interpretation Code [facility] Work Phone: [phone] General cardiovascular disease 10Y risk [#] [place] N/A Invalid Interpretation Code [facility] Work Phone: [phone] Lab Report: PTon 07-20-2013 INR Coag RelTime (PPP) 1.7 {INR} Normal [facility] Work Phone: [phone] INR in blood by coagulation 1.7 {INR} Normal [facility] Work Phone: [phone] prothrombin time, actual/normal, ratio 18.8 SECONDS High 11.9-14.4 [facility] Work Phone: [phone] PTP 18.8 SECONDS High 11.9-14.4 [facility] Work Phone: [phone] Lab Report: [facility] - copyon specific gravity, urine 1.015 Normal 1.002-1.030 [facility] Work Phone: [phone] EKG Report: [facility] ECG Obse rvationson 03-16-2013 Pulse (Heart Rate) 412 ms Invalid Interpretation Code [facility] Work Phone: [phone] Lab Report: Ordered by Dr. Crow schulte 02-13-2013 very low density lipoproteins 27 mg/dL Invalid Interpretation Code [facility] Work Phone: [phone] Influenza virus A and B and SARS-CoV-2 (COVID-19) Ag panel - Upper respiratory specim SARS-CoV-2 (COVID-19) RNA ZACH+probe Ql (Resp) [facility] Work Phone: Vital Signs Date Time Vital Sign Value Performing Clinician Faci lity 09-14-2024 09:04-0400 Diastolic blood pressure 69 mm[Hg] Amadou Liu MD Work Phone: [facility] 09-14-2024 09:04-0400 Heart rate 60 /min Amadou Liu MD Work Phone: [facility] 09-14-2024 09:04-0400 Systolic blood pressure 146 mm[Hg] Amadou Liu MD Work Phone: [facility] 09-14-2024 08:55-0400 Body height 157.48 cm Amadou Liu MD Work Phone: [facility] 09-14-2024 08:55-0400 Body mass index (BMI) [Ratio] 28.3 kg/m2 Amadou Liu MD Work Phone: [facility] 09-14-2024 08:55-0400 Body weight 70.3 kg Amadou Liu MD Work Phone: [facility] 09-14-2024 08:55-0400 Respiratory rate 18 /min Amadou Liu MD Work Phone: [facility] 08-23-2024 03:05-0400 Body temperature 97.7 [degF] Amadou Liu MD Work Phone: [facility] 08-23-2024 03:05-0400 Diastolic blood pressure 58 mm[Hg] Amadou Liu MD Work Phone: [facility] 08-23-2024 03:05-0400 Heart rate 65 /min Amadou Liu MD Work Phone: [facility] 08-23-2024 03:05-0400 Respiratory rate 16 /min Amadou Liu MD Work Phone: [facility] 08-23-2024 03:05-0400 SaO2% (BldA) [Mass fraction] 98 % Amadou Liu MD Work Phone: [facility] 08-23-2024 03:05-0400 Systolic blood pressure 139 mm[Hg] Amadou Liu MD Work Phone: [facility] 08-23-2024 00:32-0400 Body height 157.48 cm Amadou Liu MD Work Phone: [facility] 08-23-2024 00:32-0400 Body mass index (BMI) [Ratio] 28.3 kg/m2 Amadou Liu MD Work Phone: [facility] 08-23-2024 00:32-0400 Body weight 70.1 kg Amadou Liu MD Work Phone: [facility] 06-21-2024 08:41-0400 Body height 157.48 cm Amadou Liu MD Work Phone: [facility] 06-21-2024 08:41-0400 Body mass index (BMI) [Ratio] 28.1 kg/m2 Amadou Liu MD Work Phone: [facility] 06-21-2024 08:41-0400 Body weight 69.85 kg Amadou Liu MD Work Phone: [facility] 06-21-2024 08:41-0400 Diastolic blood pressure 89 mm[Hg] Amadou Liu MD Work Phone: [facility] 06-21-2024 08:41-0400 Heart rate 65 /min Amadou Liu MD Work Phone: [facility] 06-21-2024 08:41-0400 Respiratory rate 16 /min Amadou Liu MD Work Phone: [facility] 06-21-2024 08:41-0400 Systolic blood pressure 206 mm[Hg] Amadou Liu MD Work Phone: [facility] 06-05-2024 11:36-0400 Body height 157.48 cm Amadou Liu MD Work Phone: [facility] 06-05-2024 11:36-0400 Body mass index (BMI) [Ratio] 28.5 kg/m2 Amadou Liu MD Work Phone: [facility] 06-05-2024 11:36-0400 Body weight 70.76 kg Amadou Liu MD Work Phone: [facility] 06-05-2024 11:36-0400 Diastolic blood pressure 82 mm[Hg] Amadou Liu MD Work Phone: [facility] 06-05-2024 11:36-0400 Heart rate 66 /min Amadou Liu MD Work Phone: [facility] 06-05-2024 11:36-0400 Respiratory rate 16 /min Amadou Liu MD Work Phone: [facility] 06-05-2024 11:36-0400 Systolic blood pressure 176 mm[Hg] Amadou Liu MD Work Phone: [facility] 02-22-2024 10:30-0500 Body mass index (BMI) [Ratio] 27.6 kg/m2 Amadou Liu MD Work Phone: [facility] 02-22-2024 10:30-0500 Body weight 68.49 kg Amadou Liu MD Work Phone: [facility] 02-22-2024 10:30-0500 Diastolic blood pressure 80 mm[Hg] Amadou Liu MD Work Phone: [facility] 02-22-2024 10:30-0500 Heart rate 66 /min Amadou Liu MD Work Phone: [facility] 02-22-2024 10:30-0500 Respiratory rate 16 /min Amadou Liu MD Work Phone: [facility] 02-22-2024 10:30-0500 SaO2% (BldA) [Mass fraction] 96 % Amadou iLu MD Work Phone: [facility] 02-22-2024 10:30-0500 Systolic blood pressure 124 mm[Hg] Amadou Liu MD Work Phone: [facility] 01-23-2024 05:59-0500 Diastolic Blood Pressure Non-Invasive 73 mm[Hg] MARIANNE PINEDA DO [facility] 01-23-2024 05:59-0500 Heart rate 60 /min MARIANNE PINEDA DO [facility] 01-23-2024 05:59-0500 Respiratory rate 16 /min MARIANNE PINEDA DO [facility] 01-23-2024 05:59-0500 Systolic Blood Pressure Non-Invasive 163 mm[Hg] MARIANNE PINEDA DO [facility] 01-23-2024 04:16-0500 Diastolic Blood Pressure Non-Invasive 79 mm[Hg] MARIANNE PINEDA DO [facility] 01-23-2024 04:16-0500 Heart rate 59 /min MARIANNE PINEDA DO [facility] 01-23-2024 04:16-0500 Respiratory rate 16 /min MARIANNE PINEDA DO [facility] 01-23-2024 04:16-0500 Systolic Blood Pressure Non-Invasive 158 mm[Hg] MARIANNE PINEDA DO [facility] 01-23-2024 03:33-0500 Diastolic Blood Pressure Non-Invasive 98 mm[Hg] MARIANNE PINEDA DO [facility] 01-23-2024 03:33-0500 Heart rate 62 /min MARIANNE PINEDA DO [address] [place] [address] 01-23-2024 03:33-0500 Respiratory rate 17 /min MARIANNE PINEDA DO [facility] 01-23-2024 03:33-0500 Systolic Blood Pressure Non-Invasive 159 mm[Hg] MARIANNE PINEDA DO [facility] 01-23-2024 02:32-0500 Body temperature 97.7 [degF] MARIANNE PINEDA DO [facility] 01-23-2024 02:32-0500 Body weight 69.8 kg MARIANNE PINEDA DO [address] [place] [address] 01-23-2024 02:32-0500 Heart rate 74 /min MARIANNE PINEDA DO [facility] 01-23-2023 10:58-0500 Diastolic blood pressure 82 mm[Hg] No Primary Care Physician [facility] 01-23-2023 10:58-0500 Heart rate 72 /min No Primary Care Physician [facility] 01-23-2023 10:58-0500 Respiratory rate 14 /min No Primary Care Physician [facility] 01-23-2023 10:58-0500 SaO2% (BldA) [Mass fraction] 99 % No Primary Care Physician [facility] 01-23-2023 10:58-0500 Systolic blood pressure 174 mm[Hg] No Primary Care Physician [facility] 01-23-2023 08:46-0500 Body height 157.48 cm No Primary Care Physician [facility] 01-23-2023 08:46-0500 Body mass index (BMI) [Ratio] 30.5 kg/m2 No Primary Care Physician [facility] 01-23-2023 08:46-0500 Body temperature 96.5 [degF] No Primary Care Physician [facility] 01-23-2023 08:46-0500 Body weight 75.7 kg No Primary Care Physician [facility] 12-06-2022 09:18-0400 Diastolic blood pressure 84 mm[Hg] No Primary Care Physician [facility] 12-06-2022 09:18-0400 Systolic blood pressure 142 mm[Hg] No Primary Care Physician [facility] 12-06-2022 08:50-0400 Body mass index (BMI) [Ratio] 30.3 kg/m2 No Primary Care Physician [facility] 12-06-2022 08:50-0400 Body weight 75.29 kg No Primary Care Physician [facility] 12-06-2022 08:50-0400 Heart rate 81 /min No Primary Care Physician [facility] 12-06-2022 08:50-0400 Respiratory rate 18 /min No Primary Care Physician [facility] 12-06-2022 08:50-0400 SaO2% (BldA) [Mass fraction] 98 % No Primary Care Physician [facility] 03-09-2022 22:59-0500 Diastolic blood pressure 93 mm[Hg] No Primary Care Physician [facility] Work Phone: 03-09-2022 22:59-0500 Heart rate 88 /min No Primary Care Physician [facility] Work Phone: 03-09-2022 22:59-0500 Respiratory rate 16 /min No Primary Care Physician [facility] Work Phone: 03-09-2022 22:59-0500 SaO2% (BldA) [Mass fraction] 96 % No Primary Care Physician [facility] Work Phone: 03-09-2022 22:59-0500 Systolic blood pressure 184 mm[Hg] No Primary Care Physician [facility] Work Phone: 03-09-2022 22:47-0500 Body height 157.48 cm No Primary Care Physician [facility] Work Phone: 03-09-2022 22:47-0500 Body mass index (BMI) [Ratio] 30.5 kg/m2 No Primary Care Physician [facility] Work Phone: 03-09-2022 22:47-0500 Body temperature 96.7 [degF] No Primary Care Physician [facility] Work Phone: 03-09-2022 22:47-0500 Body weight 75.74 kg No Primary Care Physician [facility] Work Phone: 12-09-2021 11:00-0400 Body mass index (BMI) [Ratio] 30.2 kg/m2 No Primary Care Physician [facility] Work Phone: 12-09-2021 11:00-0400 Body weight 74.84 kg No Primary Care Physician [facility] Work Phone: 12-09-2021 11:00-0400 Diastolic blood pressure 77 mm[Hg] No Primary Care Physician [facility] Work Phone: 12-09-2021 11:00-0400 Heart rate 82 /min No Primary Care Physician [facility] Work Phone: 12-09-2021 11:00-0400 Respiratory rate 16 /min No Primary Care Physician [facility] Work Phone: 12-09-2021 11:00-0400 SaO2% (BldA) [Mass fraction] 97 % No Primary Care Physician [facility] Work Phone: 12-09-2021 11:00-0400 Systolic blood pressure 146 mm[Hg] No Primary Care Physician [facility] Work Phone: 11-25-2016 10:16-0400 BMI (Body Mass Index) 31.72 kg/m2 [facility] Work Phone: 11-25-2016 10:16-0400 BP Diastolic 98 mm[Hg] [facility] Work Phone: 11-25-2016 10:16-0400 BP Systolic 164 mm[Hg] [facility] Work Phone: 11-25-2016 10:16-0400 Height 157.48 cm Nallely [facility] Work Phone: 11-25-2016 10:16-0400 Pulse (Heart Rate) 72 /min [facility] Work Phone: 11-25-2016 10:16-0400 Respiratory Rate 18 /min [facility] Work Phone: 11-25-2016 10:16-0400 Weight 78.67 kg [facility] Work Phone: 06-02-2016 11:20-0400 BMI (Body Mass Index) 33.25 kg/m2 Shirley Jewell RN [facility] Work Phone: 06-02-2016 11:20-0400 BP Diastolic 70 mm[Hg] Shirley Jewell RN [facility] Work Phone: 06-02-2016 11:20-0400 BP Systolic 110 mm[Hg] Shirley Jewell RN [facility] Work Phone: 06-02-2016 11:20-0400 Height 157.48 cm Shirley Jewell RN [facility] Work Phone: 06-02-2016 11:20-0400 Pulse (Heart Rate) 64 /min Shirley Jewell RN [facility] Work Phone: 03-29-2017 11:20-0400 Respiratory Rate 16 /min Shirley Jewell RN [facility] Work Phone: 06-02-2016 11:20-0400 Weight 82.46 kg Shirley Jewell RN [facility] Work Phone: 03-10-2016 15:15-0500 BSA (Body Surface Area) 1.84 m2 Shirley Jewell RN [facility] Work Phone: 06-04-2015 08:51-0400 Heart rate 66 /min [facility] Work Phone: 10-02-2014 08:53-0400 Body Temperature 97.7 [degF] Shirley Jewell RN [facility] Work Phone: 10-02-2014 08:53-0400 Pulse Oximetry 96 % Shirley Jewell RN [facility] Work Phone: 07-23-2013 12:31-0400 Height 157.48 cm Shirley Jewell RN [facility] Work Phone: 07-23-2013 12:31-0400 Weight 85 kg Shirley Jewell RN [facility] Work Phone: 03-16-2013 14:28-0500 Heart rate 412 ms [facility] Work Phone: Encounters Encounter Date Encounter Type Care Provider Facility Start: 09-25-2024 Non-patient / Non-visit Dr. Juan Antonio Alaniz MD -[facility] Start: 09-25-2024 End: 09-25-2024 ambulatory Amadou Liu MD Work Phone: -[facility] Start: 09-25-2024 End: 09-25-2024 Patient encounter procedure Anali MENDEZ -[facility] Work Phone: Start: 09-25-2024 End: 09-25-2024 ambulatory Amadou Liu Facility:[facility] Start: 09-14-2024 End: 09-14-2024 Patient encounter procedure Anali MENDEZ -[facility] Work Phone: Start: 09-14-2024 End: 09-14-2024 ambulatory Amadou Liu MD Work Phone: [facility] Start: 08-23-2024 End: 08-23-2024 Emergency department patient visit Amadou Liu MD Work Phone: -Emergency Department Work Phone: Start: 07-17-2024 Non-patient / Non-visit Dr. Octavio Lopez MD -[facility] Start: 07-17-2024 End: 07-17-2024 ambulatory Amadou Liu MD Work Phone: [facility] Work Phone: Start: 07-17-2024 End: 07-17-2024 Patient encounter procedure Anali MENDEZ -Cardiovascular Services Work Phone: Start: 07-17-2024 End: 07-17-2024 ambulatory Chalon Calos Facility:[facility] Start: 06-21-2024 End: 06-21-2024 Patient encounter procedure Anali MENDEZ -[facility] Work Phone: Start: 06-21-2024 End: 06-21-2024 ambulatory Chalon Calos Facility:[facility] Start: 06-05-2024 End: 06-05-2024 Patient encounter procedure Anali MENDEZ -[facility] Work Phone: Start: 06-05-2024 End: 06-05-2024 ambulatory Amadou Liu MD Work Phone: [facility] Work Phone: Start: 06-05-2024 End: 06-05-2024 ambulatory Chalon Calos Facility:[facility] Start: 03-12-2024 Non-patient / Non-visit Dr. Octavio Lopez MD -[facility] Start: 03-12-2024 End: 03-12-2024 ambulatory Amadou Liu MD Work Phone: [facility] Work Phone: Start: 03-12-2024 End: 03-12-2024 Patient encounter procedure Amadou Liu MD Work Phone: -Cardiovascular Services Work Phone: Start: 03-12-2024 End: 03-12-2024 ambulatory AYANNA ISSA Facility:[facility] Start: 02-24-2024 End: 02-24-[address] Amadou Liu MD -Laboratory, Specimen Work Phone: Start: 02-24-2024 End: 02-24-2024 ambulatory [facility] Facility:[facility] Start: 02-22-2024 End: 02-22-2024 Patient encounter procedure Anali MENDEZ -[facility] Work Phone: Start: 02-22-2024 End: 02-22-2024 ambulatory [facility] Facility:[facility] Start: 02-13-2024 Non-patient / Non-visit Dr. Octavio Lopez MD -[facility] Start: 02-13-2024 ambulatory Octavio Lopez Facility:[facility] Start: 02-04-2024 Patient encounter status Amadou Liu MD Work Phone: [facility] Start: 02-04-2024 End: 02-04-2024 Emergency department patient visit Steve Farnsworth Facility:[facility] Start: 01-23-2024 End: 01-23-2024 ambulatory [facility] Facility:[facility] Start: 01-23-2024 End: 01-23-2024 Emergency department patient visit MARIANNE PINEDA DO [facility] Start: 01-10-2024 End: 01-10-2024 [facility] Facility:[facility] Start: 01-07-2024 Emergency department patient visit WHIT DORIS Facility:[facility] Start: 01-06-2024 End: 01-06-2024 ambulatory Rc Ramirez APRN.CNP Work Phone: Cardiology Start: 01-06-2024 End: 01-06-2024 Patient encounter procedure Rc James BENITEZ.CFA Work Phone: Cardiology Comment on above: TAVR Consult Start: 12-26-2023 End: 12-26-2023 Telephone encounter Whit George MD Work Phone: Cardiology Comment on above: Received Outside Med ical Records Start: 12-26-2023 ambulatory [facility] Start: 12-23-2023 End: 12-23-2023 Telephone encounter Cardiac Surgeon - [facility]specified [facility] Start: 12-23-2023 ambulatory 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 Facility:[facility] Start: 11-08-2023 End: 11-08-2023 [facility] Start: 01-23-2023 End: 01-23-2023 Emergency department patient visit No Primary Care Physician [facility]-Emergency Department Work Phone: Start: 12-15-2022 Non-patient / Non-visit No Primary Care Physician [facility] Work Phone: Start: 12-15-2022 Non-patient / Non-visit No Primary Care Physician [facility] Start: 12-15-2022 End: 12-15-2022 Patient encounter procedure No Primary Care Physician [facility]-Cardiovascular Services Work Phone: Start: 12-06-2022 End: 12-06-2022 Patient encounter procedure No Primary Care Physician [facility] Work Phone: Start: 03-09-2022 End: 01-04-2023 Emergency department patient visit No Primary Care Physician [facility]-Emergency Department Start: 12-28-2021 Non-patient / Non-visit No Primary Care Physician [facility] Start: 12-28-2021 End: 12-28-2021 Patient encounter procedure No Primary Care Physician [facility]-Cardiovascular Services Start: 12-09-2021 End: 12-09-2021 Patient encounter procedure No Primary Care Physician [facility] Start: 06-15-2021 End: 06-15-2021 Patient encounter procedure [facility]-Laboratory, [place] Procedures Date Procedure Procedure Detail Performing Clinician Start: 08-23-2024 Estimated creatinine clearance Amadou Liu MD Work Phone: Start: 02-24-2024 Urine culture Amadou solares MD Work Phone: Start: 01-23-2023 Plain chest X-ray No Pr imary Care Physician Start: 03-09-2022 Plain chest X-ray No Pr imary Care Physician Start: 06-15-2021 Pelvis X-ray Start: 06-15-2021 Plain x-ray of hand Start: 06-15-2021 Plain X-ray of shoulder Start: 11-25-2016 End: 12-20-2016 Echocardiography Octavio Lopez MD Start: 11-25-2016 End: 12-23-2016 Nuclear stress test -Lexiscan Octavio Lopez MD Start: 06-02-2016 End: 06-02-2016 PHU Daniel PA-C Work Phone: Start: 06-02-2016 End: 06-02-2016 Follow Up Appt 6 months Anali cleary PA-C Work Phone: Start: 06-02-2016 End: 06-02-2016 PHU Daniel PA-C Work Phone: Start: 06-02-2016 End: 06-02-2016 Follow Up Appt 6 months Anali cleary PA-C Work Phone: Start: 03-10-2016 End: 05-24-2016 Ambulatory BP Monitor 24 HR Anali Linares PA-C Work Phone: Start: 03-10-2016 End: 03-10-2016 Follow Up Appt Other Anali sutherland PA-C Work Phone: Start: 03-10-2016 End: 05-24-2016 Ambulatory BP Monitor 24 HR Anali Linares PA-C Work Phone: Start: 03-10-2016 End: 03-10-2016 Follow Up Appt Other Anali sutherland PA-C Work Phone: Start: 12-03-2015 End: 12-03-2015 Follow Up Appt 6 months Kaleigh Mendoza Start: 12-03-2015 End: 12-03-2015 JEVON Lopez MD Start: 12-03-2015 End: 12-03-2015 Dietary management education, guidance, and counseling Nallelyamol Adams Start: 12-03-2015 End: 12-03-2015 Follow Up Appt 6 months Kaleigh Mendoza Start: 12-03-2015 End: 12-03-2015 JEVON Lopez MD Start: 06-04-2015 End: 06-04-2015 PHU Daniel PA-C Work Phone: Start: 06-04-2015 End: 06-04-2015 Ecg routine ecg w/least 12 lds w/i&r Anali Daniel PA-C Work Phone: Start: 06-04-2015 End: 06-04-2015 Follow Up Appt 6 months Anali cleary PA-C Work Phone: Start: 06-04-2015 End: 06-04-2015 PHU Daniel PA-C Work Phone: Start: 06-04-2015 End: [...] APRN.CNP Work Phone: Start: 07-10-2014 End: 07-10-2014 PAVILION CUTTER Anali Daniel PA-C Work Phone: Start: 07-10-2014 End: 07-11-2014 Documentation of current medications Anali Daniel PA-C Work Phone: Start: 07-10-2014 End: 07-10-2014 Follow Up Appt 4 months Anali cleary PA-C Work Phone: Start: 07-10-2014 End: 07-10-2014 Follow Up Appt Other Anali sutherland PA-C Work Phone: Start: 07-10-2014 End: 07-10-2014 PAVILION CUTTER Anali Daniel PA-C Work Phone: Start: 07-10-2014 [...] months Kaleigh Mendoza Start: 04-11-2014 End: 04-11-2014 JEVON Lopez MD Start: 04-11-2014 End: 04-12-2014 Documentation of current medications Octavio Lopez MD Start: 04-11-2014 End: 04-11-2014 Follow Up Appt 3 months Kaleigh Mendoza Start: 04-11-2014 End: 04-11-2014 MMM Octavio Lopez MD Start: 08-02-2013 End: 08-02-2013 Follow [...] Octavio Lopez MD Start: 03-16-2013 End: 03-16-2013 PHU Daniel PA-C Work Phone: Start: 03-16-2013 End: 03-16-2013 Follow Up Appt 1 year Anali joshua PA-C Work Phone: Start: 03-16-2013 End: 03-16-2013 Follow Up Appt Other Anali sutherland PA-C Work Phone: Start: 03-16-2013 End: 03-16-2013 PHU Daniel PA-C Work Phone: Start: 03-16-2013 End: [...] stent placement Anali MENDEZ Comment on above: [id number] RCA w/ 4.0 x 18 mm Penta Stent 06/2001, 2 stents to RCA 02/08/24 at [facility] History of cataract extraction Hx of cataract surgery Amadou Liu MD Work Phone: SARS-CoV-2 & FLU Ant igen (Rapid) No Primary Care Physician Plan of Treatment Date Care Activity Detail Author Start: 08-23-2024 [facility] Start: 08-23-2024 [facility] Start: 11-06-2023 Covid-19 Vaccine () Covid-19 Vaccine () [facility] Start: 11-06-2023 Influenza vaccination Influenza Vaccine (#1) [facility] Start: 03-07-2023 Advance Directive Discussion Advance Directive Discussion [facility] Start: 01-23-2023 [facility] Start: 01-23-2023 [facility] Start: 08-26-2017 Diabetes Screening Diabetes Screening [facility] Start: 06-01-2017 End: 06-01-2017 Appointment [facility] Work Phone: Start: 11-25-2016 End: 11-25-2016 Echocardiography Echocardiogram (complete) [facility] Work Phone: Start: 11-25-2016 End: 11-25-2016 Follow Up Appt 6 months Follow Up Appt 6 months [facility] Work Phone: Start: 11-25-2016 End: 11-25-2016 MMM MMM [facility] Work Phone: Start: 11-25-2016 End: 12-20-2016 Nuclear stress test -Lexiscan Nuclear stress test -Lexiscan [facility] Work Phone: Start: 11-25-2016 End: 11-25-2016 Appointment Appointment [facility] Work Phone: Start: 11-25-2016 End: 11-25-2016 Echocardiography Echocardiogram (complete) [facility] Work Phone: Start: 11-25-2016 End: 11-25-2016 Follow Up Appt 6 months Follow Up Appt 6 months [facility] Work Phone: Start: 11-25-2016 End: 11-25-2016 MMM MMM [facility] Work Phone: Start: 11-25-2016 End: 11-25-2016 Nuclear stress test -Lexiscan Nuclear stress test -Lexiscan [facility] Work Phone: Start: 06-02-2016 End: 06-02-2016 PAVILION CUTTER PAVILION CUTTER [facility] Work Phone: Start: 06-02-2016 End: 06-02-2016 Follow Up Appt 6 months Follow Up Appt 6 months [facility] Work Phone: Start: 06-02-2016 End: 06-02-2016 PAVILION CUTTER PAVILION CUTTER [facility] Work Phone: Start: 06-02-2016 End: 06-02-2016 Follow Up Appt 6 months Follow Up Appt 6 months [facility] Work Phone: Start: 03-10-2016 End: 05-24-2016 Ambulatory BP Monitor 24 HR Ambulatory BP Monitor 24 HR [facility] Work Phone: Start: 03-10-2016 End: 03-10-2016 Follow Up Appt Other Follow Up Appt Other [facility] Work Phone: Start: 03-10-2016 End: 05-24-2016 Ambulatory BP Monitor 24 HR Ambulatory BP Monitor 24 HR [facility] Work Phone: Start: 03-10-2016 End: 03-10-2016 Follow Up Appt Other Follow Up Appt Other [facility] Work Phone: Start: 12-03-2015 End: 12-03-2015 Follow Up Appt 6 months Follow Up Appt 6 months [facility] Work Phone: Start: 12-03-2015 End: 12-03-2015 MMM MMM [facility] Work Phone: Start: 12-03-2015 End: 12-03-2015 Follow Up Appt 6 months Follow Up Appt 6 months [facility] Work Phone: Start: 12-03-2015 End: 12-03-2015 MMM MMM [facility] Work Phone: Start: 06-04-2015 End: 06-04-2015 PAVILION CUTTER PAVILION CUTTER [facility] Work Phone: Start: 06-04-2015 End: 06-04-2015 Ecg routine ecg w/least 12 lds w/i&r EKG (In office) [facility] Work Phone: Start: 06-04-2015 End: 06-04-2015 Follow Up Appt 6 months Follow Up Appt 6 months [facility] Work Phone: Start: 06-04-2015 End: 06-04-2015 PAVILION CUTTER PAVILION CUTTER [facility] Work Phone: Start: 06-04-2015 End: 06-04-2015 Electrocardiogram, complete EKG (In office) [facility] Work Phone: Start: 06-04-2015 End: 06-04-2015 Follow Up Appt 6 months Follow Up Appt 6 months [facility] Work Phone: Start: 12-04-2014 End: 12-04-2014 Follow Up Appt 6 months Follow Up Appt 6 months [facility] Work Phone: Start: 12-04-2014 End: 12-04-2014 MMM MMM [facility] Work Phone: Start: 12-04-2014 End: 12-04-2014 Follow Up Appt 6 months Follow Up Appt 6 months [facility] Work Phone: Start: 12-04-2014 End: 12-04-2014 MMM MMM [facility] Work Phone: Start: 07-10-2014 End: 07-10-2014 PAVILION CUTTER PAVILION CUTTER [facility] Work Phone: Start: 07-10-2014 End: 07-10-2014 Follow Up Appt 4 months Follow Up Appt 4 months [facility] Work Phone: Start: 07-10-2014 End: 07-10-2014 Follow Up Appt Other Follow Up Appt Other [facility] Work Phone: Start: 07-10-2014 End: 07-10-2014 PAVILION CUTTER PAVILION CUTTER [facility] Work Phone: Start: 07-10-2014 End: 07-10-2014 Follow Up Appt 4 months Follow Up Appt 4 months [facility] Work Phone: Start: 07-10-2014 End: 07-10-2014 Follow Up Appt Other Follow Up Appt Other [facility] Work Phone: Start: 07-03-2014 End: 07-03-2014 Follow Up Appt 3 months Follow Up Appt 3 months [facility] Work Phone: Start: 07-03-2014 End: 07-03-2014 Pulmonary Function Test - complete Pulmonary Function Test - complete [facility] Work Phone: Start: 07-03-2014 End: 07-03-2014 Follow Up Appt 3 months Follow Up Appt 3 months [facility] Work Phone: Start: 07-03-2014 End: 07-03-2014 Pulmonary Function Test - complete Pulmonary Function Test - complete [facility] Work Phone: Start: 04-11-2014 End: 04-11-2014 Follow Up Appt 3 months Follow Up Appt 3 months [facility] Work Phone: Start: 04-11-2014 End: 04-11-2014 MMM MMM [facility] Work Phone: Start: 04-11-2014 End: 04-11-2014 Follow Up Appt 3 months Follow Up Appt 3 months [facility] Work Phone: Start: 04-11-2014 End: 04-11-2014 MMM MMM [facility] Work Phone: Start: 08-02-2013 End: 08-02-2013 Follow Up Appt Other Follow Up Appt Other [facility] Work Phone: Start: 08-02-2013 End: 08-02-2013 Follow Up Appt Other Follow Up Appt Other [facility] Work Phone: Start: 07-23-2013 End: 07-04-2014 *Hepatic Function Panel *Hepatic Function Panel [facility] Work Phone: Start: 07-23-2013 End: 07-04-2014 *Hepatic Function Panel *Hepatic Function Panel [facility] Work Phone: Start: 07-20-2013 End: 07-22-2013 *BMP *BMP [facility] Work Phone: Start: 07-20-2013 End: 07-22-2013 CBC W Auto Differential panel - Blood *CBC without Diff [facility] Work Phone: Start: 07-20-2013 End: 07-04-2014 Chest x-ray X-Ray, Chest, PA & Lateral [facility] Work Phone: Start: 07-20-2013 End: 07-20-2013 Ecg routine ecg w/least 12 lds w/i&r EKG (In office) [facility] Work Phone: Start: 07-20-2013 End: 07-20-2013 Echocardiography Echocardiogram (complete) [facility] Work Phone: Start: 07-20-2013 End: 07-22-2013 INR Coag RelTime (PPP) *PT/INR [facility] Work Phone: Start: 07-20-2013 End: 07-20-2013 Left Heart Cath Left Heart Cath [facility] Work Phone: Start: 07-20-2013 End: 07-22-2013 *BMP *BMP [facility] Work Phone: Start: 07-20-2013 End: 07-22-2013 CBC W Auto Differential panel - Blood *CBC without Diff [facility] Work Phone: Start: 07-20-2013 End: 07-04-2014 Chest x-ray X-Ray, Chest, PA & Lateral [facility] Work Phone: Start: 07-20-2013 End: 07-22-2013 Coagulation factor induced.INR assay in platelet poor plasma *PT/INR [facility] Work Phone: Start: 07-20-2013 End: 07-20-2013 Echocardiography Echocardiogram (complete) [facility] Work Phone: Start: 07-20-2013 End: 07-20-2013 Electrocardiogram, complete EKG (In office) [facility] Work Phone: Start: 07-20-2013 End: 07-20-2013 Left Heart Cath Left Heart Cath [facility] Work Phone: Start: 03-16-2013 End: 03-16-2013 PAVILION CUTTER PAVILION CUTTER [facility] Work Phone: Start: 03-16-2013 End: 03-16-2013 Follow Up Appt 1 year Follow Up Appt 1 year [facility] Work Phone: Start: 03-16-2013 End: 03-16-2013 Follow Up Appt Other Follow Up Appt Other [facility] Work Phone: Start: 03-16-2013 End: 03-16-2013 PAVILION CUTTER PAVILION CUTTER [facility] Work Phone: Start: 03-16-2013 End: 03-16-2013 Follow Up Appt 1 year Follow Up Appt 1 year [facility] Work Phone: Start: 03-16-2013 End: 03-16-2013 Follow Up Appt Other Follow Up Appt Other [facility] Work Phone: Start: 12-29-2012 End: 12-29-2012 Follow Up Appt 6 months Follow Up Appt 6 months [facility] Work Phone: Start: 12-29-2012 End: 12-29-2012 MMM MMM [facility] Work Phone: Start: 12-29-2012 End: 12-29-2012 Follow Up Appt 6 months Follow Up Appt 6 months [facility] Work Phone: Start: 12-29-2012 End: 12-29-2012 MMM MMM [facility] Work Phone: Start: 05-17-2012 End: 08-02-2013 *Hepatic Function Panel *Hepatic Function Panel [facility] Work Phone: Start: 05-17-2012 End: 08-02-2013 Lipid 1996 panel *Lipid Profile [facility] Work Phone: Start: 05-17-2012 End: 08-02-2013 *Hepatic Function Panel *Hepatic Function Panel [facility] Work Phone: Start: 05-17-2012 End: 08-02-2013 [...] RSV Vaccine (1 - 1-dose 75+ series) [facility] Start: 2000 Pneumococcal Vaccine: 65+ (1 of 1 - PCV) Pneumococcal Vaccine: 65+ (1 of 1 - PCV) [facility] Start: 2000 Screening for osteoporosis Bone Density Screening [facility] Start: 1985 Shingrix Vaccine (1 of 2) Shingrix Vaccine (1 of 2) [facility] Start: 1954 Urine microalbumin profile DTaP,Tdap,Td Vaccine (1 - Tdap) [facility] Start: 1953 Anxiety Screening Anxiety Screening [facility] Start: 1953 Depression Screening Depression Screening [facility] Lipid 1996 panel - S jerardo or Plasma [facility] Work Phone: Lipid 1996 panel - S jerardo or Plasma [facility] Patient Education [facility] Work Phone: Patient referral [facility] Work Phone: Renal artery [facility] Payers Date Payer Category Payer Self-pay [id number] 2023 Unknown [id number] 2000 Medicare [id number] 2000 Medicare [id number] [facility] [id number] 1935 Unknown [id number] 2.16.8 [id number] Unknown [id number] 2.16.8 [id number] Unknown [id number] 2.16.8 [id number] Unknown [id number] 2.16.8 [id number] Unknown [id number] 2.16.8 [id number] Unknown [id number] 2.16.8 [id number] Unknown [id number] 2.16.8 [id number] Unknown [id number] 2.16.8 [id number] Unknown [id number] 2.16.8 [id number] Unknown [id number] 2.16.8 [id number] Unknown [id number] 2.16.8 [id number] Unknown [id number] 2.16.8 [id number] Unknown [id number] 2.16.8 [id number] Unknown [id number] 2.16.8 [id number] Unknown [id number] 2.16.8 [id number] Unknown [id number] 2.16.8 40.1.703639.3.579.2.462 Unknown [id number] 2.16.8 40.1.857733.3.579.2.462 Unknown [id number] 2.16.8 [id number] Unknown [id number] 2.16.8 [id number] Unknown [id number] 2.16.8 [id number] Unknown [id number] 2.16.8 [id number] Unknown [id number] 2.16.8 [id number] Unknown [id number] 2.16.8 [id number] Unknown [id number] 2.16.8 [id number] Social History Date Type Detail Facility Start: 01-12-2021 End: 01-23-2023 Tobacco smoking status WYIS Unknown if ever smoked [facility] Start: 02-28-2020 With Family [facility] Start: 12-24-2019 Non-smoker [facility] Start: 1935 Sex Assigned At Female W [facility] Start: 1935 Sex assigned at Not on file [facility] Gender identity Not on file [facility] Start: 08-28-2014 End: 08-23-2024 Tobacco smoking status NHIS Never smoked tobacco [facility] Start: 08-28-2014 Tobacco use and exposure Smokeless tobacco non-user [facility] Start: 08-28-2014 Alcoholic beverage intake Current non-drinker of alcohol (finding) [facility] Start: 06-11-2024 End: 06-11-2024 Sex Female (finding) [facility] Goals Date Patient Goal Desired Activity /State Personal health goal Functional Status Date Assessment Result Facility 01-23-2024 Functional Status Room check performed [facility] Mental Status Date Assessment Result Facility 08-23-2024 Cognitive function Voice/Name [facility] Work Phone: 01-23-2024 Mental Status Oriented x 4 [facility] 01-23-2023 Cognitive function Level Of Cons ciousness Awake;Alert;Appropriate;Follow s Commands [facility] Work Phone: Clinical Notes 06-19-2001 to [...] 09, 2024 chronic June 21, 2024 8:21am [facility] Work Phone: 1(152) 114-196204-01-2025 Evaluation note* Diagnosis Onset Date Resolution Status Admit Date Deep vein thrombosis acute Apri l 2024 11:25am Essential (primary) hypertension chronic June 05, 2024 11:25am History of coronary artery stent placement June 19, 2001 chronic June 05, 2024 11:25am Hyperlipidemia chronic June 05, 2024 11:25am S/P TAVR (transcatheter aortic valve replacement) February 09, 2024 chronic Apr il 2024 11:25am Deep vein thrombosis acute Apri l 2024 8:21am Essential (primary) hypertension chronic June 21, 2024 8:21am History of coronary artery stent placement June 19, 2001 chronic June 21 8:21am Hyperlipidemia chronic June 8:21am S/P TAVR (transcatheter aortic valve replacement) February 09, 2024 chronic Apr il 2024 8:21am Deep vein thrombosis acute September 14, 2024 8:50am Essential (primary) hypertension chronic September 14, 2024 8:50am History of coronary artery stent placement June 19, 2001 chronic September 14, 2024 8:50am Hyperlipidemia chronic September 14, 2024 8:50am S/P TAVR (transcatheter aortic valve replacement) February 09, 2024 chronic Sep 8:50am [facility] Work Phone: 1(374) 935-941812-18-2024 Evaluation note* Diagnosis Onset Date Resolution Status Admit Date Deep vein thrombosis acute Dece [id number] 10:28am Essential (primary) hypertension chronic February 21 024 10:28am History of coronary artery stent placement June 19, 2001 chronic February 22, 2024 10:28am Hyperlipidemia chronic February [id number] 10:28am Nonrheumatic aortic (valve) stenosis chronic February 21 024 10:28am S/P TAVR (transcatheter aortic valve replacement) February 09, 2024 chronic Feb 10:28am Deep vein thrombosis acute Apri l 2024 11:25am Essential (primary) hypertension chronic June 05, 2024 11:25am History of coronary artery stent placement June 19, 2001 chronic June 05, 2024 11:25am Hyperlipidemia chronic June 05, 2024 11:25am S/P TAVR (transcatheter aortic valve replacement) February 09, 2024 chronic Apr 2024 11:25am [facility] Work Phone: 1(397) 494-800111-18-2024 Hospital Discharge instructions Patient Education 01/23/2024 05:46:33 [...] that stimulates the heart. This includes many rgiy-vha-jxeimwv cold and sinus decongestant pills and sprays, as well as diet pills. Check the warnings about high blood pressure on thelabel. Before purchasing any sthe-njz-vuqosrp medicines or supplements, always ask the pharmacist [...] on home blood pressure monitoring from the [employer]. Don't smoke or drink coffee [...] of the face Trouble speaking or seeing [phone] [employer]. [address] [place] [address]. All rights reserved. This information is not intended as a substitute for professional medical care. Always follow yourhealthcare professional's instructions. Follow Up Care 01/23/2024 02:30:07 With:LIBORIO SAENZ MD Address: [address] [facility], [place], operated by [facility] [address] [facility] [place] [address]- [phone] When:2-4 days With:AMADOU LIU MD Address: [address] [place] [address] [address] [place] [address]- [phone] When:2-4 days [facility] 11-18-2024 Emergency department Discharge summary Discharge Instructions Thank you for allowing [facility] to assist you with your healthcare needs. The following is importantdischarge information regarding your hospital visit. What to Do Next Instructions from Your Care Team No qualifying data available. Post Acute Orders No qualifying data available. You Need to Schedule the Following Appointments Follow Up with LIBORIO SAENZ MD When:Within 2-4 days Where:[address] [facility] [place] [address]- [phone] Follow Up with AMADOU LIU MD When:Within 2-4 days Where:[address] [place] [address] [phone] Allergies erythromycin Medications Please ask your primary [...] that stimulates the heart. This includes many bass-svj-katmoup cold and sinus decongestant pills and sprays, as well as diet pills. Check the warnings about high blood pressure on thelabel. Before purchasing any jrtr-rmf-dqfhvxd medicines or supplements, always ask the pharmacist [...] on home blood pressure monitoring from the [employer]. Don't smoke or drink coffee [...] of the face Trouble speaking or seeing [phone] [employer]. [address] [place] [address], [place] [address]. All rights reserved. This information is not intended as a substitute for professional medical care. Always follow yourhealthcare professional's instructions. Additional Information VACCINATE! IT SAVES LIVES! Members of the community who have not yet received the COVID-19 vaccine and would like to receive it can visit one of [facility] vaccine clinics. There are many vaccine clinic locations within the [facility]. For locations and available times, please visit www.gettheshot.coronavirus.[place].gov/. It is important to note that some COVID mobile vaccine clinics are held outdoors and may be canceled in rainy or stormy conditions. To learn more about pediatric vaccinations (ages 5-11), we invite you to visit the [facility] webpage. https://www.[facility].org/pages/2138-Vdwpk-Lyipyxcudxf-Sexnmltaqc-Ratlp-Vgj stions.htmlTo learn more about the COVID-19 vaccine, we invite you to visit the CDC website for a list of frequently asked questions. https://www.cdc.gov/coronavirus/2019-ncov/vaccines/faq.html [facility] Patient Portal Access Instructions: Stay connected with your healthcare team and access your personal medical information anytime with the [facility] Patient Portal. If you would like a full copy of your medical records please contact the [facility] Medical Records Department Tuesday through Tuesday between 8a.m. and 4:30p.m. Please follow the directions below to access the portal: 1.Access the email account you provided upon registration to the hospital.2.Look for an invitation email from [facility].3.Open the email and access the invitation link: Accept Invitation to [facility]4.Fill in the required loaiza to create your account. Sign into [email or web address] with your username and password that you [...] you will allow to register on the [email or web address] Patient Portal for access to your information. You can also access the [email or web address] Patient Portal on the Pollen. Simply click on Health Records under [employer] and then click on the [employer] logo. HOW TO SAFELY DISPOSE OF PRESCRIPTION [...] Call your local pharmacy or go to http://Publicate.Destination Media/1R3Ay6d to find one close to you.3.Make use of household items: Use cat litter or old coffee grounds to dispose medications if other options arenot available. Mix your drugs with these household products, seal them in an airtight container andthrow it into the garbage. Call [facility]: [phone] to be sure your drugs can be [...] aware that I should contact my doctor. Patient/Transportation Project Manager Signature: Date/Time: Relationship to Patient: Witness Name/Signature: Date/Time: [id number] Note ORIGINAL EXAMINATION: CT OF THE HEAD [...] Sign Date: 01/23/2024 4:06:01 AM Ordering Provider: [facility]11-18-2024 Note ORIGINAL EXAMINATION: ONE XRAY VIEW OF [...] Sign Date: 01/23/2024 3:33:33 AM Ordering Provider: [facility]11-18-2024 NoteSINUS RHYTHM ABNORMAL R-WAVE PROGRESSION, EARLY TRANSITION PROBABLE LEFT VENTRICULAR HYPERTROPHY Electronic Signature: MARIANNE PINEDA DO 01/23/2024 05:54:[address] [place] [address] 11-01-2024 NoteHNO ID: [id number] Author: RC RAMIREZ APRN.CFA Service: ? Author Type: Nurse Practitioner Type: Progress Notes Filed: 01/06/2024 10:42 Note Text: TAVR STRUCTURAL REVIEW FORM Orders placed by: Erik Lucas APRN ([facility]) Records Reviewed: 01/06/2024 Appt request sent: 01/06/2024 Records in [facility] have been reviewed. Severe . Request has been sent to the surgery scheduler who will arrange an appointment schedule. Please [...] Chester/Dr. Brown/Dr. Alexis/Dr. Benedict/ Dr. Cruz/ Dr. George/Dr. Mcnulty (If a Tuesday is needed, can schedule with Dr. Becker or Dr. Vasquez). The following testing on same day as appointment with physician: EKG/CXR/Labs (CMP; CBC with diff, PT/INR, Pro-BNP, High Sensitivity Troponin, Lipoprotein(a)-LPA) Echocardiogram CTA aorta Carotid Ultrasound DAY TWO: Left Heart catheterization: any diagnostic physician. IF CREAT is 2.0 or greater, then it should be by an Local Truck Driver ONLY (Dr. Arias, Dr. George, Dr. Mcnulty, Dr. Cruz, Dr. Benedict, Dr. Linn, Dr. Peoples,Dr. Loredo, Dr. Lewis, Dr. Lozoya, Dr. Figueroa and Dr. Graham) DAY THREE: Nuclear Medicine- Amyloid SPECT Structural Valve Clinic appointment PFT?s (spirometry, diffusing capacity) Patient is also to be seen by Dr. Richardson/Dr. Limon/Dr. Stephen/Dr. Read/ Dr. Lovell/Dr. Portillo/Dr. Wilkins/Dr. Magana/ Dr. Olivia/ Dr. Orr/Dr. Douglas. Rc Ramirez APRN.[place] [address]-01-2024 History of Present illness Narrative* Rc Ramirez APRN.SIRENA - 01/06/2024 10:14 AM EDT Images from the original note were not included. TAVR STRUCTURAL REVIEW FORM Orders placed by: Erik Lucas APRN ([facility]) Records Reviewed: 01/06/2024 Appt request sent: 01/06/2024 Records in [facility] have been reviewed. Severe . Request has been sent to the surgery scheduler who will arrange an appointment schedule. Please [...] [place]/Dr. Brown/Dr. Alexis/Dr. Benedict/ Dr. Cruz/ Dr. George/Dr. Mcnulty (If a Tuesday is needed, can schedule with Dr. Becker or Dr. Vasquez). The following testing on same day as appointment with physician: EKG/CXR/Labs (CMP; CBC with diff, PT/INR, Pro-BNP, High Sensitivity Troponin, Lipoprotein(a)-LPA) Echocardiogram CTA aorta Carotid Ultrasound DAY TWO: Left Heart catheterization: any diagnostic physician. IF CREAT is 2.0 or greater, then it should be by an Local Truck Driver ONLY (Dr. Arias, , Dr. Mcnulty, Dr. Cruz, Dr. Benedict, Dr. Linn, Dr. Peoples,Dr. Loredo, Dr. Lewis, Dr. Lozoya, Dr. Figueroa and Dr. Graham) DAY THREE: Nuclear Medicine- Amyloid SPECT Structural Valve Clinic appointment PFT s (spirometry, diffusing capacity) Patient is also to be seen by Dr. Richardson/Dr. Limon/Dr. Stephen/Dr. Read/ Dr. Lovell/Dr. Portillo/Dr. Wilkins/Dr. Magana/ Dr. Olivia/ Dr. Orr/Dr. Douglas. Rc Ramirez APRN.CFA [facility] Tele[facility] encounter Note * Telephone Encounter - Melissa Friend - 12/26/2023 4:59 PM EDT Images from the original note were not included. Received referral to Dr. George for TAVR, uploaded under scanned documents Echo 12/21/2023 (No Images) CXR 01/23/2023 (No Images) Faxed request for images: [facility]10[facility] Miscellaneous Notes* Telephone Encounter - Melissa Friend - 12/26/2023 4:59 PM EDT Images from the original note were not included. Received referral to Dr. George for TAVR, uploaded under scanned documents Echo 12/21/2023 (No Images) CXR 01/23/2023 (No Images) Faxed request for images: documented in this encounterL[facility]10-[facility] Telephone encounter Note * Telephone Encounter - José Luis Jett - 12/23/2023 8:33 AM EDT RECEIVED CALL FROM: Family member - Name: Maria Victoria PATIENT INFORMATION: Name: Gina Worthington : 1935 (home) Email: [email or web address] Referring Provider: No referring provider defined for this encounter. Phone: N/A Fax: Requested Surgeon: First Available/Unspecified Reason for appointment/diagnosis : Aortic stenosis José Luis Eric Jett December 23, 2023 8:34 AM [facility]10-18-[facility]24 Miscellaneous Notes* Telephone Encounter - DagobertoJerseynaseem Reyes - 12/23/2023 8:33 AM EDT RECEIVED CALL FROM: Family member - Name: Maria Victoria PATIENT INFORMATION: Name: Gina Worthington : 1935 (home) Email: [email or web address] Referring Provider: No referring provider defined for this encounter. Phone: N/A Fax: Requested Surgeon: First Available/Unspecified Reason for appointment/diagnosis : Aortic stenosis José Luis Eric Jett December 23, 2023 8:34 AM documented in this encounterL[facility]04-[facility] Evaluation note* Diagnosis Onset Date Resolution Status Essential (primary) hypertension chronic History of coronary artery stent placement June 19, 2001 chronic Hyperlipidemia chronic Nonrheumatic aortic (valve) stenosis chronic [facility] Work Phone: Discharge summary Author Mario Cruz [facility] January 23, 2023 10:47am Note Date/Time January 23, 2023 9:36am [facility] Medical Records Department [address] [place] [address] [place] [address] Emergency Department Summary 01/23/23 MR#: [id number] Acct: [id number] Name: GINA WORTHINGTON Rep #:[id number] : 1935 87 From: Mario Cruz DO [...] she tries to keep away from these. [facility] Medical History Atherosclerotic heart disease of [place] coronary artery without angina pectoris Deep vein [...] % (Auto) 63.9 Lymph % (Auto) 26.2 [place] % (Auto) 8.1 Eos % (Auto) 0.8 [...] as courtesy until pt obtains new Primary Dr. ) Qty: 15 1RF carvedilol 3.125 mg [...] your Primary Care Provider. Call [facility] ([phone]) or report to the closest Emergency Room. Call 911 if necessary. 01/23/23 1047 <Electronically signed by Mario Cruz DO> Cosigner Signature (if applicable): CC: No Primary Care Physician ~ Signed [facility] Work Phone: Evaluation + Plan note Future Appointments Appointment Date:01/26/2024 02:30:00 PM Scheduled Provider:DEON, CANTON Location:[facility] Appointment Type:CV STORAGE CONSULTANT [facility] Evaluation noteNo assessment information available [facility] Work Phone: Evaluation note* Diagnosis Nonrheumatic aortic valve stenosis- Primary Aortic valve disorders documented in this encounter [facility] course Narrative No data available for this section [facility] Hospital Discharge instructions Additional Instructions Albuterol MDI: 2 puffs every 4 hours as needed for cough/wheezing.[facility] Work Phone: Hospital Discharge instructions Additional Instructions Your workup showed no sign of heart damage or kidney damage associated from your high blood pressure this evening. Please continue all of your blood pressure medications as directed by your family doctor and follow-up with them for repeat evaluation. Return to the ER should you have any further concernsWMer[facility] Work Phone: Reason for referral (narrative)No reason for referral information availableWMercy Health Anderson Hospital Work Phone: Summary note* Roxie Hines: PERFORM Event Display: Patient Summary Documents Authored Date: [id number] [facility] Advance Directives No Advanced Directives Records Found Advance Directive Response Recorded Date/ Time Advance Directives No April 13, 2016 3:02am Living Will No December 06 3:42pm Power of Sole Layer No December 06 3:42pm Advance Directive Response Recorded Date/ Time Name of Medical Power of Sole Layer MARA LARA March 09, 2022 10:59pm Advance Directives No April 13, 2016 2:02am Living Will No March 09 10:59pm Power of Sole Layer Yes March 09 10:59pm Advance Directive Response Recorded Date/ Time Advance Directives No April 13, 2016 2:02am Living Will No January 23 023 10:58am Power of Sole Layer No January 23, 2023 10:58am Advance Directive Response Recorded Date/ Time Living Will Yes November 07 12:36am Do you have a Healthcare Power of Sole Layer? Yes November 08, 2023 12:36am Advance Directives No April 13, 2016 3:02am Advance Directive Response Recorded Date/ Time Advance Directives No April 13, 2016 3:02am Advance Directive Response Recorded Date/ Time Do you have a Healthcare Power of Sole Layer? No August 23, 2024 12:35am Advance Directives No April 13, 2016 3:02am [...] valve rep lacement) June 21, 2024 8:21am Chief Complaint Admit Date 4 M FU June 05, 2024 11:2 5am EORDER June 05, 2024 12:1 8pm BP Issues June 21, 2024 8:2 1am Presence of prosthetic heart valve July 052024 9:03am CHEST PAIN August 23, 2024 12:3 1am Chief Complaint Admit Date 4 M FU June 05, 2024 11:2 5am EORDER June 05, 2024 12:1 8pm BP Issues June 21, 2024 8:2 1am Presence of prosthetic heart valve July 052024 9:03am CHEST PAIN August 23, 2024 12:3 1am 3 M FU September 14, 2024 8:50 am Reason for Visit Admit Date Deep vein [...] valve rep lacement) June 21, 2024 8:21am Deep vein thrombosis September 14, 2024 8:5 0am Essential (primary) hypertension September 142024 8:50am History of coronary artery stent placeme nt Bianca 11th, 2025 8:50am Hyperlipidemia September 14, 2024 8:50 am S/P TAVR (transcatheter aortic valve rep lacement) September 14, 2024 8:50am Chief Complaint Admit Date 4 M FU June 05, 2024 11:2 5am EORDER June 05, 2024 12:1 8pm BP Issues June 21, 2024 8:2 1am Presence of prosthetic heart valve July 052024 9:03am CHEST PAIN August 23, 2024 12:3 1am 3 M FU September 14, 2024 8:50 am labile hypertension September 25, 2024 8:34 am Summary Purpose Family History No Family History [...] Provider, Refer ring Provider Active Priyanka Marks STORAGE CONSULTANT, STORAGE CONSULTANT-C Attending Provider Active Team Status: Active Member Role Status Dates No Primary Care Physician Primary Care Provider Active Dr. Octavio Lopez MD Attending Provider Active Team Status: Active Member Role Status Dates No Primary Care Physician Primary Care Provider Active Priyanka Marks STORAGE CONSULTANT, STORAGE CONSULTANT-C Attending Provider Active Team Status: Inactive Member Role Status Dates No Primary Care Physician Primary Care Provider Active Dr. Octavio Lopez MD Other Provider Active Priyanka Marks STORAGE CONSULTANT, STORAGE CONSULTANT-C Attending Provider, Referring P josh Active Team Status: Inactive Member Role Status Dates No Primary Care Physician Primary Care Provider Active Dr. Mario Cruz DO Emergency Provider Active Team Status: Active Member Role Status Dates Dr. Edgar Crooks MD Family Provider Active Amadou Liu MD Primary Care Provider Active Team Status: Active Member Role Status Dates Amadou Liu MD [...] 22, 2024 End: February 22, 2024 Anali MENDEZ, PA Attending Provider Active Start: February 22, [...] End: June 05, 2024 Anali MENDEZ, PA Attending Provider Active Start: June 05, 2024 End: June 05, 2024 Team Status: Inactive Member Role Status Hany Liu MD Primary Care Provider Active St art: June 05, 2024 End: June 05, 2024 Anali MENDEZ, PA Attending Provider Active Start: June 05, 2024 End: June 05, 2024 Anali MENDEZ PA Referring Provider Active Start: June 05, [...] 21, 2024 End: June 21, 2024 Anali Daniel PA, PA Attending Provider Active Start: June 21, 2024 End: June 21, 2024 Team Status: Inactive Member Role Status Hany Liu MD Primary Care Provider Active St art: July 17, 2024 End: July 17, 2024 Anali Daniel PA, PA Attending Provider Active Start: July 17, 2024 End: July 17, 2024 Anali Daniel PA, PA Referring Provider Active Start: July 17, 2024 End: July 17, 2024 Team Status: Active Member Role Status Hany Liu MD Primary Care Provider Active St art: July 17, 2024 Dr. Octavio Lopez MD Attending Provider Active S tart: July 17, 2024 Team Status: Inactive Member Role Status Hany Liu MD Primary Care Provider Active St art: August 23, 2024 End: August 23, 2024 Dr. Ruiz Luo , Emergency Provider Active Start: August 23, 2024 End: August 23, 2024 Team Status: Active Member Role/Relationship Status Hany Liu MD Primary Care Provider Active Team Status: Inactive Member Role/Relationship Status Hany Liu MD Primary Care Provider Active St art: June 05, 2024 End: June 05, 2024 Amadou Liu MD Referring Provider Active Start : June 05, 2024 End: June 05, 2024 Anali MENDEZ, PA Attending Provider Active Start: June 05, 2024 End: June 05, 2024 Team Status: Inactive Member Role/Relationship Status Hany Liu MD Primary Care Provider Active St art: June 05, 2024 End: June 05, 2024 Anali MENDEZ, PA Attending Provider Active Start: June 05, 2024 End: June 05, 2024 Anali MENDEZ PA Referring Provider Active Start: June 05, 2024 End: June 05, 2024 Team Status: Inactive Member Role/Relationship Status Hany Liu MD Primary Care Provider Active St art: June 21, 2024 End: June 21, 2024 Amadou Liu MD Referring Provider Active Start : June 21, 2024 End: June 21, 2024 Anali MENDEZ PA Attending Provider Active Start: June 21, 2024 End: June 21, 2024 Team Status: Inactive Member Role/Relationship Status Hany Liu MD Primary Care Provider Active St art: July 17, 2024 End: July 17, 2024 Anali MENDEZ PA Attending Provider Active Start: July 17, 2024 End: July 17, 2024 ANDREA Yates Referring Provider Active Start: July 17, 2024 End: July 17, 2024 Team Status: Active Member Role/Relationship Status Hany Liu MD Primary Care Provider Active St art: July 17, 2024 Dr. Octavio Lopez MD Attending Provider Active S tart: July 17, 2024 Team Status: Inactive Member Role/Relationship Status Hany Liu MD Primary Care Provider Active St art: August 23, 2024 End: August 23, 2024 Dr. Ruiz Luo DO Attending Provider Active Start: August 23, 2024 End: August 23, 2024 Dr. Ruiz Luo DO Emergency Provider Active Start: August 23, 2024 End: August 23, 2024 Team Status: Inactive Member Role/Relationship Status Hany Liu MD Primary Care Provider Active St art: September 14, 2024 End: September 14, 2024 Amadou Liu MD Referring Provider Active Start : September 14, 2024 End: September 14, 2024 Anali MENDEZ PA Attending Provider Active Start: September 14, 2024 End: September 14, 2024 Team Status: Inactive Member Role/Relationship Status Hany Liu MD Primary Care Provider Active St art: September 25, 2024 End: September 25, 2024 Anali MENDEZ PA Attending Provider Active Start: September 25, 2024 End: September 25, 2024 Anali MENDEZ, PA Referring Provider Active Start: September 25, 2024 End: September 25, 2024 Team Status: Active Member Role/Relationship Status Dates Amadou Liu MD Primary Care Provider Active St art: September 25, 2024 Dr. Juan Antonio Alaniz MD Attending Provider Active S tart: September 25, 2024 INFORMATION SOURCE (unrecogn ized section and content) DATE CREATED AUTHOR 03/05/2023 [facility] DATE CREATED AUTHOR AUTHOR'S ORGANIZ ATION 12/25/2023 [facility] DATE CREATED AUTHOR AUTHOR'S ORGANIZ ATION 01/11/2024 [facility] DATE CREATED AUTHOR AUTHOR'S ORGANIZ ATION 02/20/2024 [facility] DATE CREATED AUTHOR AUTHOR'S ORGANIZ ATION 10/21/2024 [facility] Source Comments (unrecognize d section and content) In the event this informatio n is protected by the Federal Confidentiality of Alcohol and Drug Abuse Patient Records regulations: The Federal rules restrict any use of the information to criminally investigate or prosecute any alcohol or drug abuse patient.[facility] Center[facility] the event this information is protected by the Federal Confidentiality of Alcohol and Drug Abuse Patient Records regulations: The Federal rules restrict any use of the information to criminally investigate or prosecute any alcohol or drug abuse patient.[facility] CenterIn the event this information is protected by the Federal Confidentiality of Alcohol and Drug Abuse Patient Records regulations: The Federal rules restrict any use of the information to criminally investigate or prosecute any alcohol or drug abuse patient.[facility] Reason for Visit (unrecogniz ed section and [...] BE BASED ON THE PRIMARY CLINICAL RECORDS. [employer] provides no warranty or guarantee of the accuracy or completeness of information in this document.
[2024-10-24 21:43] LABS: Troponin T High Sensitivity 12 ng/L (<=14)
--- NOTE | 2024-10-24 21:45 | CT_ITS ---
PROCEDURE: CTA CHEST W/WO CONTRAST 10/24/2024 REASON FOR EXAM: CHEST PAIN TECHNIQUE: CTA CHEST W/WO CONTRAST Multiplanar Sagittal and Coronal images were obtained. 3D post processing was performed. CONTRAST: Isovue 370 VOLUME: 98 mL One or more dose reduction techniques were used (e.g., Automated exposure control, adjustment of the mA and/or kV according to patient size, use of iterative reconstruction technique). RADIATION DOSE SUMMARY: DLP: 343.13 mGycm COMPARISON: Prior chest radiographs, no prior chest CT available. FINDINGS: PULMONARY VESSELS: No filling defects suspicious for pulmonary arterial emboli identified. Mildly prominent caliber of the central pulmonary vessels may reflect pulmonary arterial hypertension. No evidence of right heart strain. LUNGS/PLEURA: Clear. No airspace consolidation or findings of pulmonary edema. No pneumothorax or pleural effusion. Mild bibasilar dependent atelectasis. Central airways are patent. MEDIASTINUM: Unremarkable. No lymphadenopathy. HEART: Mildly enlarged. No pericardial effusion. Moderate-advanced coronary artery calcifications and/or stenting, and prominent mitral annulus calcification. TAVR hardware. THORACIC AORTA: Normal in course and caliber, with moderate atherosclerotic disease. UPPER ABDOMEN: Few small nonobstructive renal stones are seen in the upper pole of the right kidney. No hydronephrosis is evident on either side. Otherwise unremarkable. BONES: Qualitative osteopenia. Multilevel degenerative changes of the spine with multiple midthoracic chronic appearing wedge compression fracture deformities resulting in exaggerated thoracic kyphosis. CT/CTA Chest W/WO Contrast IMPRESSION: 1. No acute intrathoracic findings. No pulmonary arterial emboli. 2. Cardiomegaly. No thoracic aortic aneurysm or dissection. Moderate atheroscle rotic disease. 3. Few small nonobstructive renal stones seen in the upper pole of the right ki dney. Reading Location: [id number]
[2024-10-24 21:48] LABS: Anion Gap 12 (5-15); BUN 23 mg/dL (4-19); BUN/Creat Ratio 26.3 RATIO (10-20); Calcium,Total 9.7 mg/dL (7.6-11.0); Carbon Dioxide 24.7 mmol/L (21.0-32.0); Chloride 103 mmol/L (98-108); Estimated Creatinine Clearance 39.13 ml/min (50-250); Glucose 99 mg/dL (70-99); Potassium 4.6 mmol/L (3.3-5.1)
[2024-10-24 22:00] VITALS: BP 208/87; PULSE 75; RESP 17; O2SAT 99
[2024-10-24 23:00] VITALS: BP 206/85; PULSE 64; RESP 16; O2SAT 100
[2024-10-24 23:26] LABS: Troponin T High Sens 2 HR 13 ng/L (<=14)
[2024-10-25] VITALS: BP 203/65; PULSE 61; RESP 16; O2SAT 98
[2024-10-25 00:10] VITALS: BP 203/65; PULSE 61; RESP 16; TEMP 36.6; O2SAT 98
== END 2024-10-25 00:26 | disposition home or self-care (01) ==
PROVIDERS: Emergency Provider Emergency Medicine; PCP Family Medicine; Visit Provider Emergency Medicine
DX: R07.9 Chest pain, unspecified (principal); K21.9 Gastro-esophageal reflux disease without esophagitis; I25.10 Atherosclerotic heart disease of native coronary artery without angina pectoris; I10 Essential (primary) hypertension; Z79.01 Long term (current) use of anticoagulants; Z79.02 Long term (current) use of antithrombotics/antiplatelets; Z79.899 Other long term (current) drug therapy; Z86.718 Personal history of other venous thrombosis and embolism; Z95.2 Presence of prosthetic heart valve; Z95.5 Presence of coronary angioplasty implant and graft
CPT/HCPCS: 71045; 71275; 80048; 84484; 85025; 85610; 93005; 99285; Q9967; A4216

== ENCOUNTER → 2024-11-14 | Outpatient (CLI) | payer MEDICARE, OTHER, SELFPAY ==
[2024-11-14 11:07] LABS: Hematocrit 35.5 % (37-47); Hemoglobin 11.7 g/dL (12.0-15.0)
[2024-11-14 11:52] LABS: AST(SGOT) 26 U/L (<=31); Alanine Aminotransfer ALT/SGPT 10 U/L (<=34); Albumin, Serum 3.9 g/dL (3.4-4.8); Alkaline Phosphatase 52 U/L (35-104); Anion Gap 9 (5-15); BUN 24 mg/dL (4-19); BUN/Creat Ratio 20.3 RATIO (10-20); Calcium,Total 9.4 mg/dL (7.6-11.0); Carbon Dioxide 24.4 mmol/L (21.0-32.0); Chloride 104 mmol/L (98-108); Cholesterol 324 mg/dL (<=200); Globulin 2.9 g/dL (2.2-4.2); Glucose 90 mg/dL (70-99); Low Density Lipoprotein Calc. 236 mg/dL; Potassium 4.6 mmol/L (3.3-5.1); Triglycerides 140 mg/dL; Very Low Density Lipoprotein 28 mg/dL (5-40); cholesterol:hdl ratio screen 5.36
== END | disposition home or self-care (01) ==
LOC: LAB 10:11
PROVIDERS: PCP Family Medicine; Referring Provider Physician Assistant Medical; Visit Provider Physician Assistant Medical
DX: D64.9 Anemia, unspecified (principal); Z95.2 Presence of prosthetic heart valve; Z95.5 Presence of coronary angioplasty implant and graft; E78.2 Mixed hyperlipidemia; I10 Essential (primary) hypertension
CPT/HCPCS: 36415; 80053; 80061; 85014; 85018

== ENCOUNTER 2025-01-01 18:32 | Observation (INO) | payer MEDICARE, OTHER, SELFPAY ==
[2025-01-01] VITALS (7 sets, daily range): BP systolic 157–224; BP diastolic 67–117; PULSE 83–100; RESP 16–18; TEMP 36.6–37; O2SAT 97–100; BMI 28.5; BMI 26.7
--- NOTE | 2025-01-01 18:53 | RAD_ITS ---
PROCEDURE: CHEST 1 VIEW (PORTABLE) 01/01/2025 REASON FOR EXAM: HYPERTENSION TECHNIQUE: Frontal view of the chest. COMPARISON: The [id number]. FINDINGS: The heart is normal in size. The lungs are clear. No acute osseous abnormalities. Aortic valve prosthesis. RAD/Chest 1 View (Portable) IMPRESSION: No Acute Findings. Reading Location: [id number]
--- NOTE | 2025-01-01 18:55 | EDS_ITS ---
HPI History of Present Illness Chief Complaint: Chest Pain Narrative Narrative: 89-year-old female past medical history of hypertension presents with her daughter because of elevated blood pressure that she has had all day. She relates history that a few months ago, her primary care provider changed her medication for her blood pressure and half the dosing because patient was getting low blood pressure readings especially in the morning. She states that she took half a lisinopril this morning and then a whole dose of Coreg this afternoon. She also took 3 nitroglycerin prior to arrival, as her blood pressure has been elevated above 200 systolic all day. She denies any headache but states that she feels dizzy at times. Additionally, she denies chest pain but that admits that she has chest tightness at times. Her daughter states that in taking 3 nitroglycerin it lowered her blood pressure to 180 systolic, but then returned to elevated blood pressure above 200. [facility] Medical History Non-smoker Anemia Back pain GERD (gastroesophageal reflux disease) Obesity Deep vein thrombosis Essential (primary) hypertension Nonrheumatic aortic (valve) stenosis Hyperlipidemia Atherosclerotic heart disease of [place] coronary artery without angina pectoris Home Medications ?Medication ?Instructions ?Recorded ?Last Taken ?Type cholecalciferol (vitamin D3) 125 5,000 unit PO DAILY S UPPLEMENT 12/12/17 11/20/19 History mcg (5,000 unit) capsule famotidine 10 mg tablet (Pepcid AC) 10 mg PO ONCE PRN gerd 12/06/22 01/01/25 History desoximetasone 0.25 % topical cream 1 applic topical D AILY PRN Fill as 02/09/23 Unknown Rx courtesy until pt obtains new Primary DrNelli #15 grams apixaban 2.5 mg tablet (Eliquis) 2.5 mg PO BID #180 ta bs 02/23/24 Unknown Rx carvedilol 12.5 mg tablet 12.5 mg PO BID #180 tabs 08/29 Unknown Rx clopidogrel 75 mg tablet 75 mg PO QDAY #90 tabs 03/12 Unknown Rx valsartan 160 mg tablet 80 mg (1/2 x 160 mg) PO BID #180 09/25/24 Unknown Rx tabs nitroglycerin 0.4 mg sublingual 0.4 mg sublingual Q5M PRN chest 10/25/24 Unknown Rx tablet pain #30 tabs rosuvastatin 5 mg tablet (Crestor) 5 mg PO DAILY #1 TA B 11/14/24 Unknown Rx isosorbide mononitrate 60 mg 60 mg PO DAILY 01/01/25 U nknown History tablet,extended release 24 hr Allergy/AdvReac Type Severity Reaction Status Date / Time azithromycin Allergy Severe Other Verified 01/01/25 18:35 pravastatin AdvReac Severe mylagias Verified 01/01/25 18:35 Family History (Updated 01/01/25 @ 21:[address] 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 Took her blood pressure medications today, and even took 3 nitroglycerin prior to arrival. EXAM Physical Exam Narrative Exam Narrative: Afebrile. Vital signs noted. Nontoxic-appearing. Cardiovascular examination feels regular rate and rhythm. Lungs are clear to auscultation bilaterally. Abdomen is soft and nontender with positive bowel sounds. Neurological examination nonfocal, nonlateralizing. Awake, alert, interactive, appropriate. Const Vital Signs: 01/01/25 18:32 01/01/25 19:32 01/01/25 20:00 Temperature 98.6 F Temperature Source Oral Pulse Rate 89 91 100 Respiratory Rate 16 18 18 Blood Pressure 224/117 H 167/83 H 199/97 H Blood Pressure Mean 152 111 131 Pulse Ox 99 100 100 Oxygen Delivery Method Room Air Room Air Room Air 01/01/25 20:45 01/01/25 21:00 Temperature 98 F Temperature Source Pulse Rate 83 83 Respiratory Rate 18 16 Blood Pressure 164/92 H 185/86 H Blood Pressure Mean 116 119 Pulse Ox 100 99 Oxygen Delivery Method Room Air MDM MDM MDM Narrative Medical decision making narrative: Patient has elevated blood pressure of 227 systolic with an elevated diastolic as well. At this point in time, the differential diagnosis includes but not limited to uncontrolled hypertension, insufficient medication, versus hypertensive urgency versus emergency. Comprehensive workup was pursued. She will be administered hydralazine 20 mg intravenously. After hydralazine, resolved blood pressure was in the 180s temporarily, but has climbed back up to 199 systolic. EKG was obtained and interpreted by myself independently as normal sinus rhythm with PVCs at [address] changes. No STEMI. I reviewed her laboratory work and she has normal white count of 4.7 with hemoglobin 12.2, hematocrit slightly low at 36.5 with platelet count normal at 204. BMP is grossly unremarkable with a BUN of 19 and a creatinine of 0.96, normal sodium and normal potassium. High-sensitivity troponin initially is 12. Urinalysis negative for infection. With the increase of her blood pressure again, patient was experiencing chest tightness. EKG was repeated and interpreted by myself independently as normal sinus rhythm with PVCs at [address] changes. No STEMI, no significant change from previous obtained in the ED. I reviewed the radiology report of the CT of the brain and there is no acute intracranial hemorrhage. Chest x-ray in 1 view interpreted by myself independently shows no consolidation or pneumothorax. I reviewed the radiology report which confirms my independent interpretation. While her second troponin is pending, I do feel that given her labile blood pressure that is uncontrolled, that she will require observation if not admission for her hypertensive urgency. She was given additional hydralazine IV bolus. I will discuss the patient with Dr. Yomaira Caro. Patient will be assigned observation in the PCU for her labile blood pressure and hypertensive urgency. Disposition is assigned observation, patient in stable condition. History & Record Review Discussion w/independent historian: Patient and Family Additional record(s) reviewed:: Prior ED visit Lab Data Attestation: I reviewed the patient's lab results. Labs: Laboratory Results - last 24 hr 01/01/25 01/01/25 01/01/25 18:44 19:00 20:46 WBC 4.7 RBC 3.68 L Hgb 12.2 Hct 36.5 L MCV 99.2 H MCH 33.2 H MCHC 33.4 RDW Std Deviation 52.3 H RDW Coeff of Heladio 14.4 Plt Count 204 MPV 11.7 Immature Gran % (Auto) 0.400 Neut % (Auto) 52.7 Lymph % (Auto) 34.7 Clark % (Auto) 9.6 Eos % (Auto) 1.7 Baso % (Auto) 0.9 Absolute Neuts (auto) 2.5 Absolute Lymphs (auto) 1.62 Nucleated RBC % 0 Sodium 136 Potassium 4.0 Chloride 102 Carbon Dioxide 23.7 Anion Gap 11 BUN 19 Creatinine 0.96 Estim Creat Clear Calc 36.60 L Est GFR (MDRD) Non-Af 56 L BUN/Creatinine Ratio 19.4 Glucose 128 H Calcium 9.3 Troponin T High Sens 12 Troponin T Hi Sens 2 Hr 12 Urine Color Straw Urine Clarity Clear Urine pH 7.0 Ur Specific Fors[place] 1.005 Urine Protein Negative Urine Glucose (UA) Normal Urine Ketones Negative Urine Occult Blood Negative Urine Nitrite Negative Urine Bilirubin Negative Urine Urobilinogen Normal Ur Leukocyte Esterase Negative Urine RBC 0 SEEN Urine WBC 0 SEEN Ur Squamous Epith Cells 0 SEEN Urine Bacteria 0 SEEN Urine Mucus 0 SEEN Radiography Chest X-Ray - ED: 1 View, Read by ED Physician, Read by Radiologist and No Acute Disease Diagnostic Testing: Clinical Impression(s) from Imaging Studies Chest X-Ray 01/01/25 18:53 IMPRESSION: No Acute Findings. Reading Location: [facility] Brain CT 01/01/25 19:20 IMPRESSION: No acute intracranial abnormality. Reading Location: [facility] Management Discussion w/another healthcare provider: Hospitalist (Dr. Yomaira Caro) Discharge Plan Dx/Rx/DC Orders Clinical Impression: Hypertensive urgency, Labile blood pressure, Chest tightness Disposition Disposition: Acute Care [facility]
--- OUTSIDE RECORDS SUMMARY | 2025-01-01 19:12 | XMS RPT_ITS | CCD ---
Author Organization [facility] Care Team Providers Care Bullet Slugs Inspector Name Role Phone [place] Adamsamol Mitchell Unavailable [...] MD Attending Provider VEGA LANG Attending Provider [phone] VEGA LANG Referring Provider Anali Ware Referring Provider Amadou Liu MD Primary Care Provider Amadou Liu MD Referring Provider Anali Ware Attending Provider Dr. Octavio Lopez MD Attending Provider [phone] Puja KO, Dr. Melchor Emergency Provider Dr. Ruiz Luo DO Attending Provider Katty PAEZ, Dr. Romano Attending Provider Calos PAEZ, Amadou Primary Care Provider Anali Ware Attending Provider Anali Ware Referring Provider Amadou Liu MD Referring Provider Yohannes KO, Dr. Wilson Emergency Provider Yohannes KO, Dr. Wilson Attending Provider Steve Farnsworth Attending Unavailable Calos, Chalon Primary Care Unavailable Hiram Bill Attending Unavailable Calos, Chalon Primary Care Unavailable Calos, Chalon Primary Care Unavailable Anali Ware Attending Unavail able Anali Ware Referring Unavail able Calos, Chalon Primary Care Unavailable Anali Ware Attending Unavail able Anali Ware Referring Unavail able Jessica, Octavio Attending Unavailable Priyanka Marks NP Consulting Unavailable Calos, Chalon Primary Care Unavailable Jessica, Morrison Referring Unavailable Vasquez Blake Consulting Unavailable VERGHESE, JOEL Referring Unavailable VERGHESE, JOEL Attending Unavailable Calos, Chalon Primary Care Unavailable Calos, Chalon Referring Unavailable Calos, Chalon Primary Care Unavailable Anali Ware Attending Unavail able Juan Antonio Alaniz Attending Unavailable Calos, Chalon Primary Care Unavailable Anali Ware Referring Unavail able Jessica, Morrison Attending Unavailable Jessica, Octavio Referring Unavailable Calos, Chalon Primary Care Unavailable Jessica, Octavio Attending Unavailable Calos, Chalon Primary Care Unavailable Jessica, Morrison Attending Unavailable Calos, Chalon Primary Care Unavailable Calos, Chalon Primary Care Unavailable Jessica, Octavio Attending Unavailable Calos, Chalon Referring Unavailable Calos, Chalon Primary Care Unavailable Anali Ware Attending Unavail able Calos, Chalon Referring Unavailable Erik Lucas NP Attending Unavailable Calos, Chalon Primary Care Unavailable Calos, Chalon Referring Unavailable Calos, Chalon Primary Care Unavailable María MENDEZ, Anali Farris Attending Unavail able Calos, Chalon Referring Unavailable Calos, Chalon Primary Care Unavailable María PA, Anali Farris Attending Unavail able Calos, Chalon Primary Care Unavailable Calos, Chalon Referring Unavailable Roof CAREER DEVELOPMENT CONSULTANT, Erik Carlos Attending Unavailable Calos, Chalon Primary Care Unavailable Steve Farnsworth Attending Unavailable Calos, Chalon Primary Care Unavailable Ruiz Luo Attending Unavailable Calos, Chalon Primary Care Unavailable María MENDEZ, Anali Farris Referring Unavail able María MENDEZ, Anali Farris Attending Unavail able Calos, Chalon Referring Unavailable Calos, Chalon Primary Care Unavailable María PA, Anali Farris Attending Unavail able Calos, Chalon Referring Unavailable Calos, Chalon Primary Care Unavailable Calos, Chalon Attending Unavailable Calos, Chalon Primary Care Unavailable María MENDEZ, Anali Farris Referring Unavail able María MENDEZ, Anali Farris Attending Unavail able Calos PAEZ, Amadou Primary Care Physician Dr. Ruiz Luo DO Attending Physician Dr. Ruiz Luo DO Emergency Department Physic bogdan Anali Ware Attending Physician Anali Ware Referring Provider Dr. Juan Antonio Alaniz MD Attending Physician Dr. Steve Farnsworth DO Attending Physician Dr. Steve Farnsworth DO Emergency Department Physician Allergies Allergy Classification Reported Allergen(s) Allergy Type Date of Onset Reaction(s) Facility (20 sources) azithromycin; Translations: [AZITHROMYCIN] drug allergy 5 Other: See Comments, Unknown [employer] Work Phone: Comment on above: per pt impairs kidne y function and she was unable to walk for 1 week (4 sources) NKDA drug allergy 3 [employer] Work Phone: (12 sources) Pravastatin Drug All[facility] (2 sources) Isosorbide; Translations: [ISOSORBIDE MONONITRATE] Drug Allergy 5 Intolerance [facility] Work Phone: (1 source) Erythromycin; Translations: [erythromycin] Drug Allergy [facility] (1 source) Pravastatin Drug Allergy 5 [facility] Repository Medications Current Medications Medication Drug Class(es) Dates Sig (Normalized) Sig (Original) apixaban 2.5 mg oral tablet (20 sources) Factor Xa Inhibitor Start: 07-09-2021 End: 02-23-2024 take 1 tablet by mouth twice daily atorvastatin 10 mg oral tablet (20 sources) HMG-CoA Reductase Inhibitor Start: 08-26-2014 atorvastatin (LIPITOR) 10 mg tablet Taking every other day 08/26/2014 Active Start: 02-21-2012 End: 12-03-2015 take 1 tablet by mouth once daily LIPITOR 10 MG TABS One tablet by mouth daily ATORVASTATIN CALCIUM [id number] Octavio Lopez MD carvedilol 12.5 mg oral tablet (20 sources) alpha-Adrenergic Brandon, beta-Adrenergic Brandon Start: 02-22-2024 End: 03-12-2024 take 1 tablet by mouth twice daily Start: 01-10-2024 End: 02-22-2024 take 1 tablet [...] 3.125 mg PO TWICE A DAY 180 3 June 02, 2022 2:55pm January 25, 2023 10:00am must administer with a meal/food cholecalciferol 0.125 mg oral capsule (13 sources) Vitamin D Start: 12-12-2017 take 1 capsule by mouth once daily clopidogrel 75 mg oral tablet (20 sources) P2Y12 Platelet Inhibitor Start: 02-22-2024 End: 03-12-2024 take 1 tablet by mouth once daily Start: 07-23-2013 End: 08-02-2013 PLAVIX 75 MG TABS 4 tablets by mouth today, then 1 tablet by mouth daily CLOPIDOGREL BISULFATE [id number] Anali Daniel PA-C desoximetasone 2.5 mg/ml topical cream (20 sources) Corticosteroid Start: 09-16-2021 End: 02-09-2023 24 hr dilTIAZem hydrochloride 120 mg extended release oral capsule (2 sources) Calcium Channel Brandon Start: 08-28-2014 take 1 capsule by mouth once daily diltiazem CD (CARDIZEM CD, CARTIA XT) 120 mg 24 hr capsule Indications: Chest pain , Hypertension Take 1 capsule by mouth once daily. 30 capsule 3 08/28/2014 Active Start: 08-26-2014 take 1 capsule by [facility] once daily diltiazem CD (CARDIZEM CD, CARTIA XT) 180 mg 24 hr capsule Indications: Chest pain Take 1 capsule by mouth once daily. 90 capsule 3 08/26/2014 Active famotidine 10 mg oral tablet (10 sources) Histamine-2 Receptor Antagonist Start: 12-06-2022 take 1 tablet by mouth once as needed for gastroesophageal reflux disease rosuvastatin calcium 5 mg oral tablet (20 sources) HMG-CoA Reductase Inhibitor Start: 11-14-2024 take 1 tablet by mouth once daily Start: 02-22-2024 End: 06-21-2024 take 1 tablet [...] by mouth every other day ROSUVASTATIN CALCIUM [id number] Nicole Vaughan ubidecarenone 200 mg oral ca psule (13 sources) Start: 12-12-2017 take 10 capsules by mouth once daily take 10 capsules by mouth once d aily coenzyme Q10 100 mg cap Take 100 mg by mouth once daily. Active valsartan 160 mg oral tablet (20 sources) Angiotensin 2 Receptor Brandon Start: 09-25-2024 Start: 02-22-2024 End: 09-25-2024 take 1 tablet by mouth twice daily Valsartan 160 mg tablet Discontinued 160 mg PO TWICE A DAY 180 March 12, 2024 2:46pm September 25, 2024 2:05pm Completed/Discontinued Medications Medication Drug Class(es) Dates Sig (Normalized) Sig (Original) amLODIPine 5 mg oral tablet (20 sources) Dihydropyridine Calcium Channel Brandon Start: 09-11-2024 End: 11-14-2024 take 2.5 mg by mouth once daily Amlodipine (Norvasc) 5 mg tablet Discontinued 2.5 mg PO daily 30 September 11, 2024 4:06pm November 14, 2024 9:27am Start: 06-21-2024 End: 09-11-2024 take 1 tablet [...] tablet Discontinued 5 mg PO .COMPLEX 30 January 10, 2024 4:17pm January 10, 2024 [...] 13, 2017 12:00am January 25, 2019 11:09am aspirin 81 mg chewable tablet (20 sources) Nonsteroidal Anti-inflammatory Drug Start: 08-20-2014 End: 07-26-2019 take 1 tablet by mouth once daily Aspirin 81 MG tablet,chewable Discontinued 81 mg PO DAILY August 20, 2014 12:00am July 26, 2019 9:58am Start: 11-11-2010 take 1 tablet by tomasa th once daily ASPIRIN 81 MG TABS One tablet by mouth daily ASPIRIN [id number] Nicole Vaughan Start: 11-11-2010 take 1 tablet by tomasa th once daily ASPIRIN 81 MG TABS One tablet by mouth daily ASPIRIN [id number] Nicole Vaughan Start: 11-11-2010 take 1 tablet by tomasa th once daily ASPIRIN EC 81 MG TBEC One tablet by mouth daily ASPIRIN [id number] Marsha Auguste, MICHAEL cinnamon bark 500 mg oral capsule (12 sources) Start: 12-12-2017 End: 01-25-2019 take 1 capsule by mouth twice daily Cinnamon Bark 500 MG capsule Discontinued 500 mg PO TWICE A DAY December 12, 2017 12:00am January 25, 2019 11:11am CHOLESTEOL cloNIDine hydrochloride 0.1 mg oral tablet (9 sources) Central alpha-2 Adrenergic Agonist Start: 01-23-2024 End: 02-22-2024 Clonidine Hcl 0.1 mg tablet Discontinued 0.1 mg PO AT BEDTIME as needed for hypertensive emergency January 23, 2024 1:00am February 22, 2024 11:34am Take if BP systolic > 190 mmHG 0.8 ml enoxaparin sodium 100 mg/ml prefilled syringe (10 sources) Low Molecular Weight Heparin Start: 07-23-2013 End: 08-02-2013 LOVENOX 80 MG/0.8ML SOLN inject 0.8 mg (1 syringe) sc twice daily today, tomorr and Tuesday ENOXAPARIN SODIUM [id number] Ozzie Vasquez MD Start: 07-23-2013 LOVENOX 80 MG/ 0.8ML SOLN inject 0.8 mg (1 syringe) sc twice daily today, tomorr and Tuesday ENOXAPARIN SODIUM [id number] Ozzie Vasquez MD Start: 07-23-2013 End: 08-02-2013 LOVENOX 80 MG/0.8ML SOLN inj ect 0.8 mg (1 syringe) sc twice daily today, tomorr and Tuesday ENOXAPARIN SODIUM [id number] Anali Daniel PA-C ezetimibe 10 mg oral tablet (10 sources) Dietary Cholesterol Absorption Inhibitor Start: 12-06-2022 End: 02-09-2023 take 1 tablet by mouth once daily Ezetimibe (Zetia) 10 mg tablet Discontinued 10 mg PO DAILY 03 02December 06, 2022 12:00am February 09, 2023 10:25am garlic preparation 300 mg oral tablet (12 sources) Non-Standardized Food Allergenic Extract Start: 07-10-2018 [...] January 25, 2019 10:11am Grape Seed Extract (12 sources) Start: 11-20-2019 End: 11-22-2019 take 50 [...] mg tablet Discontinued 12.5 mg PO DAILY December 06, 2020 12:00am January 12, 2021 9:32am Start: 04-13-2016 End: 06-01-2017 take 1 tablet by mouth once daily Hydrochlorothiazide 25 MG tablet Discontinued 25 mg PO DAILY 30 April 13, 2016 1:00am June 01, 2017 9:29am 24 hr isosorbide mononitrate 60 mg extended release oral tablet (20 sources) Start: 10-25-2024 End: 11-14-2024 take 1 tablet by mouth once daily, then take 1 tablet by mouth every twenty-four hours Isosorbide Mononitrate 60 mg tablet extended release 24 hr Discontinued 60 mg PO DAILY 30 October 25, 2024 12:00am November 14, 2024 9:29am Start: 01-25-2019 End: 06-18-2019 take 1 tablet by mouth once daily, then take 1 tablet by mouth every twenty-four hours Isosorbide Mononitrate 30 mg tablet extended release 24 hr Discontinued 30 mg PO DAILY 90 January 25, 2019 1:00am June 18, 2019 10:44am Start: 04-11-2014 End: 12-04-2014 take 1 tablet by mouth once daily IMDUR 30 MG [id number] One tablet by mouth daily ISOSORBIDE MONONITRATE [id number] Octavio Lopez MD Start: 04-11-2014 End: 12-04-2014 take 1 tablet by mouth once daily IMDUR 30 MG [id number] B One tablet by mouth daily ISOSORBIDE MONONITRATE [id number] Octavio Lopez MD Start: 04-11-2014 take 1 tablet by mouth once da wilfrido IMDUR 30 MG [id number] One tablet by mouth daily ISOSORBIDE MONONITRATE [id number] Octavio Lopez MD lisinopril 10 mg oral [...] 10 mg PO TWICE A DAY 180 3 March 17, 2021 5:38pm December 09, 2021 [...] 10 mg PO TWICE A DAY 180 3 September 28, 2018 4:41pm June 18, 2019 [...] TABS One tablet by mouth daily LISINOPRIL [id number] Octavio Lopez MD Start: 07-20-2013 take 0.5 tablet by m outh once daily LISINOPRIL 10 MG TABS 1/2 tablet by mouth daily LISINOPRIL [id number] Shirley Jewell RN Start: 07-20-2013 LISINOPRIL 20 MG TABS one tablet in the evening LISINOPRIL [id number] Octavio Lopez MD Start: 11-11-2010 End: 02-21-2012 take 1 tablet by mouth once daily LISINOPRIL 10 MG TABS One tablet by mouth daily LISINOPRIL [id number] Don Elliott MD 24 hr metoprolol succinate 50 mg extended release oral tablet (10 sources) beta-Adrenergic Brandon Start: 07-20-2013 End: 08-01-2013 take 1 tablet by mouth once daily TOPROL XL 50 MG [id number] One tablet by mouth daily METOPROLOL SUCCINATE [id number] Octavio Lopez MD Start: 07-20-2013 End: 08-01-2013 take 1 tablet by mouth once daily TOPROL XL 50 MG [id number] One tablet by mouth daily METOPROLOL SUCCINATE [id number] Shirley Jewell RN Start: 07-20-2013 take 1 tablet by tomasa th once daily TOPROL XL 50 MG [id number] One tablet by mouth daily METOPROLOL SUCCINATE [id number] Octavio Lopez MD Multivitamin tablet (9 sources) Start: 08-16-2023 End: 01-10-2024 Multivitamin tablet Discontinued 1 {tbl} PO DAILY August 16, 2023 12:00am January 10, 2024 11:07pm nitroglycerin 0.4 mg sublingual tablet (20 sources) Nitrate Vasodilator Start: 12-13-2017 End: 06-19-2020 Nitroglycerin Discontinued 0.4 MG SL Q5M June 19, 2020 7:58am June 19, 2020 8:01am Start: 05-30-2017 End: 11-14-2024 Nitroglycerin 0.4 mg tablet, sublingual Discontinued 0.4 [...] 5 min up to 3 X NITROGLYCERIN [id number] Octavio Lopez MD Start: 11-11-2010 NITROSTAT 0.4 MG SUBL 1 tablet under tongue every 5 min up to 3 X NITROGLYCERIN [id number] Octavio Lopez MD pravastatin sodium 40 mg oral tablet (20 sources) HMG-CoA Reductase Inhibitor Start: 04-12-2016 End: 06-01-2017 take 1 tablet by mouth at bedtime Pravastatin 40 MG tablet Discontinued 40 mg PO AT BEDTIME April 12, 2016 1:00am June 01, 2017 9:29am Turmeric extract (12 sources) Start: 01-25-2019 End: 09-22-2020 take 400 [...] daily Warfarin Discontinued 0.5 MG PO DAILY January 12, 2021 12:00am July 09, 2021 7:33am Start: 07-23-2013 COUMADIN 5 MG TABS (HOLD for heart cath)managed by Dr. Crooks WARFARIN SODIUM [id number] Shirley Jewell RN Start: 06-12-2013 End: 01-12-2021 take 4.5 mg by mouth once daily Warfarin 4 mg tablet Discontinued 4.5 mg PO DAILY 90 January 12, 2021 9:47am January 12, 2021 11:08am blood thinner Start: 06-12-2013 End: 01-12-2021 take 4.5 mg by mouth once daily Warfarin Discontinued 4.5 MG PO DAILY 90 January 12, 2021 8:47am January 12, 2021 10:08am Start: 11-11-2010 End: 07-20-2013 COUMADIN 5 MG TABS managed b romel Crooks WARFARIN SODIUM [id number] Octavio Lopez MD Problems Active Problems Problem Classification Problem Date Documented Da te Episodic/Chronic Coronary atherosclerosis and other heart disease (20 sources) Coronary arteriosclerosis; Translations: [Atherosclerotic heart disease of tribe coronary artery without angina pectoris] Onset: 11-11-2010 Resolved: 11-14-2014 11-14-2014 Chronic Coronary atherosclerosis and other heart disease (13 sources) Presence of coronary angioplasty implant and graft; Translations: [Coronary angioplasty status] Onset: 06-19-2001 11-14-2014 Episodic Deficiency and other anemia (9 sources) Anemia; Translations: [Anemia, unspecified] 06-05-2024 Episodic Deficiency and other anemia (1 source) Anemia, unspecified; Translations: [Anemia, unspecified] Onset: 11-27-2024 Episodic Disorders of lipid metabolism (20 sources) Hyperlipidemia; Translations: [Hyperlipidemia, unspecified] Onset: 11-11-2010 11-11-2010 Chronic E Codes: Fall (9 sources) Fall; Translations: [Unspecified fall, initial encounter] 06-05-2024 Episodic Comment on above: 6 weeks ago Essential hypertension (20 sources) Hypertensive disorder; Translations: [Essential hypertension] Onset: 11-11-2010 11-11-2010 Chronic Genitourinary symptoms and ill-defined conditions (9 sources) Malodorous urine; Translations: [Unspecified abnormal findings in urine] 11-29-2023 Episodic Headache; including migraine (12 sources) Headache; Translations: [Headache] 12-08-2021 Episodic Heart valve disorders (20 sources) Aortic stenosis, non-rheumatic ; Translations: [Nonrheumatic aortic (valve) stenosis] Onset: 02-09-2024 Chronic Comment on above: [facility]. Hypertension with complications and secondary hypertension (12 sources) Hypertensive emergency; Translations: [Hypertensive emergency] 04-05-2020 Chronic Nonspecific chest pain (20 sources) Chest discomfort; Translations: [Chest pain] Onset: 07-20-2013 Resolved: 11-14-2014 07-20-2013 Episodic Osteoarthritis (12 sources) Arthritis; Translations: [Unspecified osteoarthritis, unspecified site] 02-29-2020 Chronic Other aftercare (12 sources) Anticoagulant control - finding; Translations: [Encounter for therapeutic drug level monitoring] 12-08-2021 Episodic Other aftercare (3 sources) Long-term current use of anticoagulant; Translations: [manager terminal (current) use of anticoagulants] 10-25-2024 Episodic Other circulatory disease (3 sources) H/O: heart disorder; Translations: [Personal history of other diseases of the circulatory system] 10-25-2024 Episodic Other circulatory disease (1 source) Other specified symptoms and signs involving the circulatory and respiratory systems; Translations: [Other specified symptoms and signs involving the circulatory and respiratory systems] Onset: 10-01-2024 Episodic Other diseases of veins and lymphatics (9 sources) Venous stasis; Translations: [Other specified disorders [...] Chronic Other nutritional; endocrine; and metabolic disorders (11 sources) Obesity; Translations: [Obesity, unspecified] 12-08-2021 Chronic Other upper respiratory infections (1 source) Other chronic sinusitis; Translations: [Other chronic sinusitis] Onset: 01-12-2024 Chronic Other upper respiratory infections (11 sources) Viral upper respiratory tract infection; Translations: [Acute upper respiratory infection, unspecified] 03-18-2022 Episodic Spondylosis; intervertebral disc disorders; other back problems (9 sources) Backache; Translations: [Dorsalgia, unspecified] 06-05-2024 Episodic Sprains and strains (12 sources) Strain of flexor muscle of hip; Translations: [Strain of muscle, fascia and tendon of left hip, initial encounter] 02-29-2020 Episodic Unclassified (2 sources) Placement of stent in coronary artery ; Translations: [Presence of coronary angioplasty implant and graft] Onset: 11-11-2010 12-03-2015 Unclassified (3 sources) Long-term drug therapy; Translations: [Other manager terminal (current) drug therapy] Onset: 11-11-2010 11-11-2010 Viral infection (12 sources) Disease caused by 2019-nCoV; Translations: [COVID-19] 08-26-2019 Episodic Past or Other Problems Problem Classification Problem Date Documented Da te Episodic/Chronic Other aftercare (2 sources) Other correction (current) drug therapy; Translations: [Other manager terminal (current) drug therapy] Onset: 11-11-2010 11-11-2010 Episodic [...] Test Name Value Interpretation Reference Range Facility Anion gap in Serum or Plasma Ordered By: Anali Daniel on 11-14-2024 Anion gap [Moles/Vol] 9 mmol/L 07-19 [facility] BUN/creatinine ratioOrdered By: Anali Daniel on 11-14-2024 Urea nitrogen/Creatinine [Mass ratio] 20.3 mg/mg High 12-24 [facility] Bilirubin, totalOrdered By: Anali Daniel on 11-14-2024 Bilirubin [Mass/Vol] 0.45 mg/dL 0.00-1.30 [facility] Calculated very low density lipoprotein (VLDL) cholesterol measurementOrdered By: Anali Daniel on 11-14-2024 Calculated very low density lipoprotein (VLDL) cholesterol measurement 28 mg/dL 5-40 [facility] Carbon dioxide, total [Moles /volume] in Central venous bloodOrdered By: Anali Daniel on 11-14-2024 CO2 [Moles/Vol] 24.4 mmol/L 21.0-32.0 [facility] Cardiology Visit Reporton Cardiology Visit Report [facility] [address] [place] [address] OFFICE VISIT Date of Service: 11/14/24 MR#: [id number] Acct: [id number] Name: GINA WORTHINGTON Rep #: [id number] : 1935 Provider: ANDREA Howard Age/Sex: 89/F Location: [facility] Status: Signed HPI HPI History of [...] locally and wish to be referred to [facility] for further evaluation. Due to wait time, she contacted [facility] team and scheduled an appointment. She has completed chest CTA. She was referred to their valve team. She is established with the cardiothoracic department at [facility] on 01/31/2024. On 02/08/2024 patient underwent [...] her home on Eliquis and Plavix. Patient was in the emergency room on October 24, 2024 for chest pain. Troponins were negative x 2. Patient was reviewed with Dr. Lopez. Patient was started on Imdur at 60 mg daily for elevated blood pressure. She stopped the isosorbide d/t low BP readings. She does not take take her medications today. She felt that her Bp was too low at 129/83 at home. She notes that she holds her valsartan a few times a week. She has not needed to use any NTG since being home. She is no longer on amlodipine d/t low BP readings per pt. it appears she is no longer taking her rosuvastatin. She said someone told me to stop taking it. Renal u/s in 09/2024 was negative. Intake Vital Signs 10/24/24 20:27 11/14/24 09:22 Height 5 ft 2 in 5 ft 2 in Weight: 151 lb BMI 27.6 BP 183/75 H Blood Pressure Location Lt brachial Position Sitting Respiration 16 Pulse 64 Pulse Source Monitor Intake Visit Reasons: S/P [facility] 10/24 CP Pediatric Oncologist Required: No Accompanied by: Self Is patient in pain?: No Allergies azithromycin Allergy (Severe, Verified 11/14/24 09:26) Other pravastatin Adverse Reaction (Severe, Verified 11/14/24 09:26) mylagias Medications ???Medication ???Instructions ???Recorded ???Confirmed ???Type cholecalciferol (vitamin D3) 125 5,000 unit PO DAILY SUPPLEMENT 10/2211/14/24 History mcg (5,000 unit) capsule coenzyme Q10 200 mg capsule 200 mg PO DAILY SUPPLEMENT 8 11/14/24 History famotidine 10 mg tablet (Pepcid AC) 10 mg PO ONCE PRN gerd 12/06/22 11/14/24 History desoximetasone 0.25 % topical cream 1 applic topical DAILY PRN Fill as 02/09/23 11/14/24 Rx courtesy until pt obtains new Primary DrNelli #15 grams apixaban 2.5 mg tablet (Eliquis) 2.5 mg PO BID #180 tabs 02/23/24 0 11/14/24 Rx carvedilol 12.5 mg tablet 12.5 mg PO BID #180 tabs 03/12/24 11/14/24 Rx clopidogrel 75 mg tablet 75 mg PO QDAY #90 tabs 03/12/24 Rx valsartan 160 mg tablet 80 mg (1/2 x 160 mg) PO BID #180 0 09/25/24 11/14/24 Rx tabs nitroglycerin 0.4 mg sublingual 0.4 mg sublingual Q5M PRN chest 11/14/24 Rx tablet pain #30 tabs Ejection fraction %: 60 Have you fallen in the past year?: No PFSH Medical History Anemia Atherosclerotic heart disease of tribe coronary artery without angina pectoris Back pain Deep vein thrombosis Essential (primary) hypertension GERD (gastroesophageal reflux disease) Hyperlipidemia Nonrheumatic aortic (valve) stenosis Obesity Surgical History History of coronary artery stent placement (06/19/01) History of left heart catheteriza (more content not included)... Normal [facility] Chloride assayOrdered By: Jessica Daniel on 11-14-2024 Chloride [Moles/Vol] 104 mmol/L 98-108 [facility] Comprehensive Metabolic Prof ilon 11-14-2024 Albumin [Mass/Vol] 3.9 g/dL Normal 3.4-4.8 [facility] Comment on above: Performed By: #### L 100.0600, L500.4050, L500.4100 #### [facility] [address] [place], [address] Albumin/Globulin [Mass ratio] 1.4 {ratio} Normal 0.9-2.4 [facility] Comment on above: Performed By: #### L 100.0600, L500.4050, L500.4100 #### [facility] [address] [place], [address] ALK PHOS 52 U/L Normal 35-104 [facility] Comment on above: Performed By: #### L 100.0600, L500.4050, L500.4100 #### [facility] [address] [place], [address] ALT [Catalytic activity/Vol] 10 U/L Normal <=34 [facility] Comment on above: Performed By: #### L 100.0600, L500.4050, L500.4100 #### [facility] [address] [place], [place], [address] AST [Catalytic activity/Vol] 26 U/L Normal <=31 [facility] Comment on above: Performed By: #### L 100.0600, L500.4050, L500.4100 #### [facility] [address] [place], [address] Bilirubin [Mass/Vol] 0.45 mg/dL Normal 0.00-1.30 [facility] Comment on above: Performed By: #### L 100.0600, L500.4050, L500.4100 #### [facility] [address] [place], [address] BUN/CRE 20.3 RATIO High 10-20 [facility] Comment on above: Performed By: #### L 100.0600, L500.4050, L500.4100 #### [facility] [address] [place], [address] Calcium [Mass/Vol] 9.4 mg/dL Normal 7.6-11.0 [facility] Comment on above: Performed By: #### L 100.0600, L500.4050, L500.4100 #### [facility] [address] [place], [address] Chloride [Moles/Vol] 104 mmol/L Normal 98-108 [facility] Comment on above: Performed By: #### L 100.0600, L500.4050, L500.4100 #### [facility] [address] [place], [address] CO2 [Moles/Vol] 24.4 mmol/L Normal 21.0-32.0 [facility] Comment on above: Performed By: #### L 100.0600, L500.4050, L500.4100 #### [facility] [address] [place], [address] Creatinine [Mass/Vol] 1.17 mg/dL Normal 0.70-1.20 [facility] Comment on above: Performed By: #### L 100.0600, L500.4050, L500.4100 #### [facility] [address] [place], [address] GAP 9 Normal 5-15 [facility] Comment on above: Performed By: #### L 100.0600, L500.4050, L500.4100 #### [facility] [address] [place], [address] GFR/1.73 sq M.predicted among non-blacks MDRD (S/P/Bld) [Vol rate/Area] 45 mL/min/{1.73_m2} Low >60 [facility] Comment on above: Result Comment: mL/m in/1.73m2 CKD-EPI Creatinine Equation (2020) Performed By: #### L 100.0600, L500.4050, L500.4100 #### [facility] [address] [place], [address] Globulin (S) [Mass/Vol] 2.9 g/dL Normal 2.2-4.2 [facility] Comment on above: Performed By: #### L 100.0600, L500.4050, L500.4100 #### [facility] [address] [place], [address] Glucose [Mass/Vol] 90 mg/dL Normal 70-99 [facility] Comment on above: Performed By: #### L 100.0600, L500.4050, L500.4100 #### [facility] [address] [place], [address] Potassium [Moles/Vol] 4.6 mmol/L Normal 3.3-5.1 [facility] Comment on above: Performed By: #### L 100.0600, L500.4050, L500.4100 #### [facility] [address] [place], [address] Sodium [Moles/Vol] 137 mmol/L Normal 133-145 [facility] Comment on above: Performed By: #### L 100.0600, L500.4050, L500.4100 #### [facility] [address] [place], [address] T PROT 6.8 g/dL Normal 5.9-8.4 [facility] Comment on above: Performed By: #### L 100.0600, L500.4050, L500.4100 #### [facility] [address] [place], [address] Urea nitrogen [Mass/Vol] 24 mg/dL High 4-19 [facility] Comment on above: Performed By: #### L 100.0600, L500.4050, L500.4100 #### [facility] [address] [place], [address] Glomerular filtration rate ( GFR) estimation/1.73 sq m using serum, plasma, or whole bOrdered By: Anali Daniel on 11-14-2024 GFR/1.73 sq M.predicted among non-blacks MDRD (S/P/Bld) [Vol rate/Area] 45 mL/min/{1.73_m2} Low >60 [facility] Comment on above: mL/min/1.73m2 CKD-EP I Creatinine Equation (2020) HH, Hemoglobin AND Hematocri ton 11-14-2024 Hematocrit (Bld) [Volume fraction] 35.5 % Low 37-47 [facility] Comment on above: Performed By: #### L 100.0600, L500.4050, L500.4100 #### [facility] [address] [place], [address] Hemoglobin (Bld) [Mass/Vol] 11.7 g/dL Low 12.0-15.0 [facility] Comment on above: Performed By: #### L 100.0600, L500.4050, L500.4100 #### [facility] [address] [place], [address] Hematocrit Auto (Bld) [Volum e fraction]Ordered By: Anali Daniel on 11-14-2024 Hematocrit (Bld) [Volume fraction] 35.5 % Low 37-47 [facility] Hemoglobin measurementOrdere d By: Anali Daniel on 11-14-2024 Hemoglobin (Bld) [Mass/Vol] 11.7 g/dL Low 12.0-15.0 [facility] LDL calc ser/plasOrdered By: Anali Daniel on 11-14-2024 Cholesterol in LDL [Mass/Vol] 236 mg/dL [facility] Comment on above: Elcudtlsng=173-472 m g/dL & Higher Byfa=622 mg/dL or greaterFriedwald Equation for LDL-C Laboratory - Chemistry and C hemistry - challengeOrdered By: Anali Daniel on 11-14-2024 AST [Catalytic activity/Vol] 26 U/L <32 [facility] Lipid Profileon 11-14-2024 CHOL:HDL 5.36 Normal [facility] Comment on above: Performed By: #### L 100.0600, L500.4050, L500.4100 #### [facility] [address] [place], [address] Cholesterol [Mass/Vol] 324 mg/dL High <=200 [facility] Comment on above: Result Comment: Chol esterol level, Desirable <200 mg/dL Borderline high cholesterol 200-239 mg/dL High cholesterol >=240 mg/dL Recommendations of the NCEP Adult Treatment Panel for the following risk-cutoff thresholds for the [place] population. Performed By: #### L 100.0600, L500.4050, L500.4100 #### [facility] [address] [place], [address] Cholesterol in HDL [Mass/Vol] 60 mg/dL Normal [facility] Comment on above: Result Comment: Torie onal Cholesterol Education Program (NCEP) guidelines: <40 mg/dL: Low HDL-cholesterol (major risk factor for CHD) >= 60 mg/dL: High HDL-cholesterol (negative risk factor for CHD) HDL-cholesterol is affected by a number of factors, e.g. smoking, exercise, hormones, sex and age. Performed By: #### L 100.0600, L500.4050, L500.4100 #### [facility] [address] [place], [address] Cholesterol in LDL [Mass/Vol] 236 mg/dL Normal [facility] Comment on above: Result Comment: Bord mzgbdn=939-663 mg/dL Higher Cvcw=507 mg/dL or greater Friedwald Equation for LDL-C Performed By: #### L 100.0600, L500.4050, L500.4100 #### [facility] [address] [place], [address] Cholesterol in VLDL [Mass/Vol] 28 mg/dL Normal 5-40 [facility] Comment on above: Performed By: #### L 100.0600, L500.4050, L500.4100 #### [facility] [address] [place], [address] Triglyceride [Mass/Vol] 140 mg/dL Normal [facility] Comment on above: Result Comment: The drugs N-Acetylcysteine and Metamizole may falsely depress this assay. Normal range: <150 mg/dL Borderline High: 150-199 mg/dL High: 200-499 mg/dL Very High: >500 mg/dL Performed By: #### L 100.0600, L500.4050, L500.4100 #### [facility] [place], [address] Potassium measurement (mass/ volume)Ordered By: Anali Daniel on 11-14-2024 Potassium (Unsp spec) [Mass/Vol] 4.6 mmol/L 3.3-5.1 [facility] Screening total cholesterol/ high density lipoprotein (HDL) cholesterol ratioOrdered By: Anali Daniel on 11-14-2024 Cholesterol.total/Angeline sterol in HDL [Mass ratio] 5.36 {ratio} [facility] Serum creatinine measurement (mass/volume)Ordered By: Anali Daniel on 11-14-2024 Creatinine [Mass/Vol] 1.17 mg/dL 0.70-1.20 [facility] Serum globulin measurementOr dered By: Anali Daniel on 11-14-2024 Globulin (S) [Mass/Vol] 2.9 g/dL 2.2-4.2 [facility] Serum glucose measurement (m ass/volume)Ordered By: Anali Daniel on 11-14-2024 Glucose [Mass/Vol] 90 mg/dL 70-99 [facility] Serum or plasma alanine glasgow otransferase (ALT) measurementOrdered By: Anali Daniel on 11-14-2024 ALT [Catalytic activity/Vol] 10 U/L <35 [facility] Serum or plasma albumin bony urement (mass/volume)Ordered By: Anali Daniel on 11-14-2024 Albumin [Mass/Vol] 3.9 g/dL 3.4-4.8 [facility] Serum or plasma albumin/glob ulin mass ratioOrdered By: Anali Daniel on 11-14-2024 Albumin/Globulin [Mass ratio] 1.4 {ratio} 0.9-2.4 [facility] Serum or plasma alkaline ronda sphatase measurementOrdered By: Anali Daniel on 11-14-2024 ALP [Catalytic activity/Vol] 52 U/L 35-104 [facility] Serum or plasma calcium bony urement (mass/volume)Ordered By: Anali Daniel on 11-14-2024 Calcium [Mass/Vol] 9.4 mg/dL 7.6-11.0 [facility] Serum or plasma cholesterol in HDL measurement (mass/volume)Ordered By: Anali Daniel on 11-14-2024 Cholesterol in HDL [Mass/Vol] 60 mg/dL >40 [facility] Comment on above: National Cholesterol Education Program (NCEP) guidelines:<40 mg/dL: Low HDL-cholesterol (major risk factor for CHD)>= 60 mg/dL: High HDL-cholesterol (negative risk factor for CHD)HDL-cholesterol is affected by a number of factors, e.g. smoking, exercise, hormones, sex and age. Serum or plasma cholesterol measurement (mass/volume)Ordered By: Anali Daniel on 11-14-2024 Cholesterol [Mass/Vol] 324 mg/dL High <201 [facility] Comment on above: Cholesterol level, D esirable <200 mg/dLBorderline high cholesterol 200-239 mg/dLHigh cholesterol >=240 mg/dLRecommendations of the NCEP Adult Treatment Panel for the following risk-cutoff thresholds for the [place] population. Serum or plasma urea nitroge n measurement (mass/volume)Ordered By: Anali Daniel on 11-14-2024 Urea nitrogen [Mass/Vol] 24 mg/dL High 4-19 [facility] Sodium levelOrdered By: Addison Daniel on 11-14-2024 Sodium [Moles/Vol] 137 mmol/L 133-145 [facility] Total proteinOrdered By: Alejo Daniel on 11-14-2024 Protein [Mass/Vol] 6.8 g/dL 5.9-8.4 [facility] Triglycerides measurementOrd ered By: Anali Daniel on 11-14-2024 Triglyceride [Mass/Vol] 140 mg/dL <199 [facility] Comment on above: The drugs N-Acetylcy steine and Metamizole may falsely depress this assay. Normal range: <150 mg/dLBorderline High: 150-199 mg/dLHigh: 200-499 mg/dLVery High: >500 mg/dL Troponin T HS 4 HRon 025 Trop T High Sen Normal <=14 [facility] Comment on above: Result Comment: Canc elled via OM: Order cancelled - Patient discharged Performed By: #### L 499.0043 #### [facility] [address] [facility] [place], [address] 12 Lead EKGon 10-24-2024 12 Lead [address] [facility] Cardiovascular Services [address] [place] [address] 12 Lead EKG 10/24/242039 MR#: [id number] Acct: [id number] Name: GINA WORTHINGTON Rep #: [id number] : 1935 89 From: Tsering Peñaloza MD Attending Dr: Status: DEP ER Ordering Dr: Steve Farnsworth DO Date: 10/24/24 Location: ED Sex: F C Admitted: Test Reason : CHEST PAIN Blood Pressure : */* mmHG Vent. Rate : 72 BPM Atrial Rate : 72 BPM P-R Int : 176 ms QRS Dur : 80 ms QT Int : 418 ms P-R-T Axes : 28 15 44 degrees QTcB Int : 457 ms Normal sinus rhythm Normal ECG Confirmed by ELIZABETH PAEZ, ELIEZER ([id number]), business editor CANDIE PEMBERTON ([id number]) on 10/25/2024 1:36:59 PM Referred By: YOHANNES Confirmed By: ELIEZER PEÑALOZA MD 10/25/24 1337 Date Tsering Peñaloza MD CC: Dr. Amadou Liu MD; Dr. Steve Farnsworth DO Signed Normal [facility] Absolute lymphocyte countOrd ered By: Steve Farnsworth on 10-24-2024 Lymphocytes Auto (Unsp spec) [#/Vol] 1.10 10*3/uL 0.83-4.51 [facility] Absolute neutrophil countOrd ered By: Steve Farnsworth on 10-24-2024 Neutrophils (Bld) [#/Vol] 3.0 10*3/uL 2.0-7.7 [facility] Anion gap in Serum or Plasma Ordered By: Steve Farnsworth on 10-24-2024 Anion gap [Moles/Vol] 12 mmol/L 5-15 [facility] Automated lymphocyte count a s percentage of total leukocytesOrdered By: Steve Farnsworth on 10-24-2024 Lymphocytes/100 WBC Auto (Unsp spec) 24.4 % [facility] BUN/creatinine ratioOrdered By: Steve Farnsworth on 10-24-2024 Urea nitrogen/Creatinine [Mass ratio] 26.3 mg/mg High 12-24 [facility] Basic Metabolic Profile (BMP )on 10-24-2024 BUN/CRE 26.3 RATIO High 12-24 [facility] Comment on above: Performed By: #### M 100.2200 #### [facility] [address] [place], [address] Calcium [Mass/Vol] 9.7 mg/dL Normal 7.6-11.0 [facility] Comment on above: Performed By: #### M 100.2200 #### [facility] [address] [place], [address] Chloride [Moles/Vol] 103 mmol/L Normal 98-108 [facility] Comment on above: Performed By: #### M 100.2200 #### [facility] [address] [place], [address] CO2 [Moles/Vol] 24.7 mmol/L Normal 21.0-32.0 [facility] Comment on above: Performed By: #### M 100.2200 #### [facility] [address] [place], [address] Creatinine [Mass/Vol] 0.89 mg/dL Normal 0.70-1.20 [facility] Comment on above: Performed By: #### M 100.2200 #### [facility] [address] [place], [address] ECRCL 39.13 ml/min Low 50-250 [facility] Comment on above: Performed By: #### M 100.2200 #### [facility] [address] [place], [address] GAP 12 Normal 5-15 [facility] Comment on above: Performed By: #### M 100.2200 #### [facility] [address] [place], [address] GFR/1.73 sq M.predicted among non-blacks MDRD (S/P/Bld) [Vol rate/Area] 62 mL/min/{1.73_m2} Normal >60 [facility] Comment on above: Result Comment: mL/m in/1.73m2 CKD-EPI Creatinine Equation (2020) Performed By: #### M 100.2200 #### [facility] [address] [place], [address] Glucose [Mass/Vol] 99 mg/dL Normal 70-99 [facility] Comment on above: Performed By: #### M 100.2200 #### [facility] [address] [place], [address] Potassium [Moles/Vol] 4.6 mmol/L Normal 3.3-5.1 [facility] Comment on above: Result Comment: Hemo lysis present, Results??could be affected. ?? Performed By: #### M 100.2200 #### [facility] [address] [place], [address] Sodium [Moles/Vol] 139 mmol/L Normal 133-145 [facility] Comment on above: Performed By: #### M 100.2200 #### [facility] [address] [place], [address] Urea nitrogen [Mass/Vol] 23 mg/dL High 4-19 [facility] Comment on above: Performed By: #### M 100.2200 #### [facility] [address] [place], [address] Basophil percentageOrdered B y: Steve Farnsworth on 10-24-2024 Basophils/100 WBC (Bld) 0.9 % 0-1 [facility] CBC W/Diff, Automatedon 10-06-2024 Absolute Lymph 1.10 X10 3/uL Normal 0.83-4.51 [facility] Comment on above: Performed By: #### L 100.0100, L501.4021, L500.2500, L300.3900 #### [facility] [address] [place], [address] Absolute Neut 3.0 X10 3/uL Normal 2.0-7.7 [facility] Comment on above: Performed By: #### L 100.0100, L501.4021, L500.2500, L300.3900 #### [facility] [address] [place], [address] Basophils/100 WBC (Bld) 0.9 % Normal 0-1 [facility] Comment on above: Performed By: #### L 100.0100, L501.4021, L500.2500, L300.3900 #### [facility] [address] [place], [address] Eosinophils/100 WBC (Bld) 0.9 % Normal 0-5 [facility] Comment on above: Performed By: #### L 100.0100, L501.4021, L500.2500, L300.3900 #### [facility] [address] [place], [address] Erythrocyte distribution width (RBC) [Ratio] 14.4 % Normal 11.6-14.6 [facility] Comment on above: Performed By: #### L 100.0100, L501.4021, L500.2500, L300.3900 #### [facility] [address] [place], [address] Hematocrit (Bld) [Volume fraction] 35.9 % Low 37-47 [facility] Comment on above: Performed By: #### L 100.0100, L501.4021, L500.2500, L300.3900 #### [facility] [address] [place], [address] Hemoglobin (Bld) [Mass/Vol] 12.0 g/dL Normal 12.0-15.0 [facility] Comment on above: Performed By: #### L 100.0100, L501.4021, L500.2500, L300.3900 #### [facility] [address] [place], [address] IG% 0.400 Normal 0.0-0.9 [facility] Comment on above: Result Comment: IG% - Immature Granulocytes (promyelocytes, myelocytes and metamyelocytes) > 1% indicates that a LEFT SHIFT is Present. Performed By: #### L 100.0100, L501.4021, L500.2500, L300.3900 #### [facility] [address] [place], [address] Lymphocytes/100 WBC (Bld) 24.4 % Normal 19-41 [facility] Comment on above: Performed By: #### L 100.0100, L501.4021, L500.2500, L300.3900 #### [facility] [address] [place], [address] MCH (RBC) [Entitic mass] 32.8 pg High 27.0-32.0 [facility] Comment on above: Performed By: #### L 100.0100, L501.4021, L500.2500, L300.3900 #### [facility] [address] [place], [address] MCHC (RBC) [Mass/Vol] 33.4 g/dL Normal 32-36 [facility] Comment on above: Performed By: #### L 100.0100, L501.4021, L500.2500, L300.3900 #### [facility] [address] [place], [address] MCV (RBC) [Entitic vol] 98.1 fL Normal 81-99 [facility] Comment on above: Performed By: #### L 100.0100, L501.4021, L500.2500, L300.3900 #### [facility] [address] [place], [address] Monocytes/100 WBC (Bld) 7.8 % Normal 0-10 [facility] Comment on above: Performed By: #### L 100.0100, L501.4021, L500.2500, L300.3900 #### [facility] [address] [place], [address] Neutrophils/100 WBC (Bld) 65.6 % Normal 47-70 [facility] Comment on above: Performed By: #### L 100.0100, L501.4021, L500.2500, L300.3900 #### [facility] [address] [place], [address] Nucleated RBC (Bld) [#/Vol] 0 10*3/uL Normal 0-5 [facility] Comment on above: Performed By: #### L 100.0100, L501.4021, L500.2500, L300.3900 #### [facility] [address] [place], [address] Platelet mean volume (Bld) [Entitic vol] 11.6 fL Normal 6.2-12.0 [facility] Comment on above: Performed By: #### L 100.0100, L501.4021, L500.2500, L300.3900 #### [facility] [address] [place], [address] Platelets (Bld) [#/Vol] 203 10*3/uL Normal 150-450 [facility] Comment on above: Performed By: #### L 100.0100, L501.4021, L500.2500, L300.3900 #### [facility] [address] [place], [address] RBC (Bld) [#/Vol] 3.66 10*6/uL Low 4.2-5.4 [facility] Comment on above: Performed By: #### L 100.0100, L501.4021, L500.2500, L300.3900 #### [facility] [address] [place], [address] RDW SD 51.9 fl High 35.1-43.9 [facility] Comment on above: Performed By: #### L 100.0100, L501.4021, L500.2500, L300.3900 #### [facility] [address] [place], [address] WBC (Bld) [#/Vol] 4.5 10*3/uL Normal 4.4-11.0 [facility] Comment on above: Performed By: #### L 100.0100, L501.4021, L500.2500, L300.3900 #### [facility] [address] [place], [address] CTA Chest W/WO Contraston CTA Chest W/WO Contrast [facility] Imaging Services [address] [place] [address] CTA Chest W/WO Contrast MR#: [id number] Acct: [id number] Name: GINA WORTHINGTON Rep #: [id number] : 1935 F 89 From: David Galarza MD PCP: Dr. Amadou Liu MD Status: [facility] ER Study: CTA Chest W/WO Contrast Date of Exam: 10/24/24 Exam# [id number] Ordering Dr: Steve Farnsworth DO PROCEDURE: CTA CHEST W/WO CONTRAST 10/24/2024 REASON FOR EXAM: CHEST PAIN TECHNIQUE: CTA CHEST W/WO CONTRAST Multiplanar Sagittal and Coronal images were obtained. 3D post processing was performed. CONTRAST: Isovue 370 VOLUME: 98 mL One or more dose reduction techniques were used (e.g., Automated exposure control, adjustment of the mA and/or kV according to patient size, use of iterative reconstruction technique). RADIATION DOSE SUMMARY: DLP: 343.13 mGycm COMPARISON: Prior chest radiographs, no prior chest CT available. FINDINGS: PULMONARY VESSELS: No filling defects suspicious for pulmonary arterial emboli identified. Mildly prominent caliber of the central pulmonary vessels may reflect pulmonary arterial hypertension. No evidence of right heart strain. LUNGS/PLEURA: Clear. No airspace consolidation or findings of pulmonary edema. No pneumothorax or pleural effusion. Mild bibasilar dependent atelectasis. Central airways are patent. MEDIASTINUM: Unremarkable. No lymphadenopathy. HEART: Mildly enlarged. No pericardial effusion. Moderate-advanced coronary artery calcifications and/or stenting, and prominent mitral annulus calcification. TAVR hardware. THORACIC AORTA: Normal in course and caliber, with moderate atherosclerotic disease. UPPER ABDOMEN: Few small nonobstructive renal stones are seen in the upper pole of the right kidney. No hydronephrosis is evident on either side. Otherwise unremarkable. BONES: Qualitative osteopenia. Multilevel degenerative changes of the spine with multiple midthoracic chronic appearing wedge compression fracture deformities resulting in exaggerated thoracic kyphosis. CT/CTA Chest W/WO Contrast IMPRESSION: 1. No acute intrathoracic findings. No pulmonary arterial emboli. 2. Cardiomegaly. No thoracic aortic aneurysm or dissection. Moderate atherosclerotic disease. 3. Few small nonobstructive renal stones seen in the upper pole of the right kidney. Reading Location: [facility] CC: Dr. Amadou Liu MD; Dr. Steve Farnsworth DO Perianesthesia Manager: Signed Normal [facility] Carbon dioxide, total [Moles /volume] in Central venous bloodOrdered By: Steve Farnsworth on 10-24-2024 CO2 [Moles/Vol] 24.7 mmol/L 21.0-32.0 [facility] Chest 1 View (Portable)on Chest 1 View (Portable) [facility] Imaging Services [address] [place] [address] Chest 1 View (Portable) MR#: [id number] Acct: [id number] Name: GINA WORTHINGTON Rep #: [id number] : 1935 F 89 From: Daryl Cotto MD PCP: Dr. Amadou Liu MD Status: REG ER Study: Chest 1 View (Portable) Date of Exam: 10/24/24 Exam# [id number] Ordering Dr: Steve Farnsworth DO ADDENDUM by Dr. Daryl Cotto MD on 10/24/24 at 2157 Findings were communicated with the ordering physician Dr. Marvin Farnsworth 9:32 p.m.. 10/24/2024. Reading Location: [facility] 10/24/242156 Date cc: Dr. Amadou Liu MD; Dr. Steve Farnsworth DO * Signed PROCEDURE: CHEST 1 VIEW (PORTABLE) 10/24/2024 REASON FOR EXAM: CHEST PAIN TECHNIQUE: Frontal view of the chest. COMPARISON: Chest x-ray 01/10/2024. FINDINGS: Hardware: Monitor electrodes overlie the chest. Heart: No cardiomegaly. An aortic valve prosthesis is in place.. Suspected mediastinum widening. Lungs: Clear. No pleural effusion or pneumothorax. Bones: No acute bony abnormalities. RAD/Chest 1 View (Portable) IMPRESSION: Suspected mediastinal widening. CTA chest may be performed for further evaluation. Reading Location: [facility] CC: Dr. Amadou Liu MD; Dr. Steve Farnsworth DO Perianesthesia Manager: Signed Normal [facility] Chloride assayOrdered By: Rodri Farnsworth on 10-24-2024 Chloride [Moles/Vol] 103 mmol/L 98-108 [facility] Emergency Department Summary on 10-24-2024 Emergency Department Summary [facility] Medical Records Department [address] [place] [address] Emergency Department Summary 10/24/24 MR#: [id number] Acct: [id number] Name: GINA WORTHINGTON Rep #: [id number] : 1935 89 From: Steve Witt PCP: Dr. Amadou Liu MD Status:REG ER Location: ED HPI History of Present Illness Chief Complaint: Chest Pain Informant: patient and family Narrative Narrative: Chest heaviness left side 3 PM while at rest. Lasted a few hours she took 3 nitros with resolution of symptoms. No pain arm neck or back. No diaphoresis. No dyspnea. No dyspnea. History of coronary disease with stenting she states the last time was February of this past year. Also had a valve replacement. She is followed by cardiology Dr. Lopez. Denies cough. She is also on Eliquis she is unclear why. Denies history of any dysrhythmia. Prior Similar Symptoms: Yes CVD Risk Factors: Positive for Hypertension and Hypercholesterolemia ; Negative for Diabetes PE Risk Factors: Negative for Recent Travel/Surgery, Recent Immobilization or Prior DVT or PE [facility] Medical History Anemia Back pain GERD (gastroesophageal reflux disease) Obesity Deep vein thrombosis Essential (primary) hypertension Nonrheumatic aortic (valve) stenosis Hyperlipidemia Atherosclerotic heart disease of tribe coronary artery without angina pectoris Home Medications [...] until pt obtains new Primary #15 grams apixaban 2.5 mg tablet (Eliquis) 2.5 mg PO BID #180 tabs 02/23/24 U nknown Rx carvedilol 12.5 mg tablet 12.5 mg PO BID #180 tabs 03/12/24 Unknown Rx clopidogrel 75 mg tablet 75 mg PO QDAY #90 tabs 03/12/24 Un known Rx amlodipine 5 mg tablet (Norvasc) 2.5 mg (1/2 x 5 mg) PO QDAY #30 Unknown Rx tabs valsartan 160 mg tablet 80 mg (1/2 x 160 mg) PO BID #180 0 09/25/24 Unknown Rx tabs isosorbide mononitrate 60 mg 60 mg PO DAILY #30 tabs 10/25/24 U nknown Rx tablet,extended release 24 hr nitroglycerin 0.4 mg sublingual 0.4 mg sublingual Q5M PRN chest Unknown Rx tablet pain #30 tabs Allergy/AdvReac Type Severity Reaction Status Date / Time azithromycin Allergy Severe Other Verified 10/24/24 20:27 pravastatin AdvReac Severe mylagias Verified 10/24/24 20:27 Family History Other CVA (cerebral vascular accident) [...] Constitutional ED: Denies chills, fever(s) or sweats ENT ENT ED: Denies sore throat Cardiovascular Cardiovascular: Reports chest pain; Denies leg edema, palpitations or racing heartbeat Respiratory/Chest Respiratory/Chest: Denies cough, dyspnea or dyspnea on exertion Gastrointestinal Gastrointestinal: Denies abdominal pain, diarrhea, nausea or vomiting Genitourinary Genitourinary ED: Denies dysuria, hematuria or urinary frequency Musculoskeletal Musculoskeletal: Denies back pain, extremity pain or neck pain Integumentary Denies rash or wounds Neurologic Neurologic: Denies headache(s), paresthesias or weakness EXAM Physical Exam Const Vital Signs: 10/24/24 20:27 10/24/24 21:13 10/24/24 21:13 Temperature 98.3 F Temperature Source Oral Pulse Rate 77 69 Respiratory Rate 14 18 Respiratory Effort Respiratory Pattern Blood Pressure 233/95 H 229/79 H Blood Pressure Mean 141 129 Pulse Ox 98 100 Oxygen Delivery Method Room Air Room Air Room Air 10/24/24 21:13 10/24/24 21:13 10/24/24 22:00 Temperature Temperature Source Pulse Rate 75 Respiratory Rate 17 Respiratory Effort Normal Normal Respiratory Pattern Normal Blood Pressure 208/87 H Blood Pressure Mean 127 Pulse Ox 99 Oxygen Deli (more content not included)... Normal [facility] Eosinophil percentageOrdered By: Steve Farnsworth on 10-24-2024 Eosinophils/100 WBC (Bld) 0.9 % 0-5 [facility] Erythrocyte distribution wid th ratioOrdered By: Steve Farnsworth on 10-24-2024 Erythrocyte distribution width (RBC) [Ratio] 14.4 % 11.6-14.6 [facility] Erythrocyte distribution wid th standard deviationOrdered By: Steve Farnsworth on 10-24-2024 Erythrocyte distribution width (RBC) [Ratio] 51.9 fl High 35.1-43.9 [facility] Glomerular filtration rate ( GFR) estimation/1.73 sq m using serum, plasma, or whole bOrdered By: Steve Farnsworth on 10-24-2024 GFR/1.73 sq M.predicted among non-blacks MDRD (S/P/Bld) [Vol rate/Area] 62 mL/min/{1.73_m2} >60 [facility] Comment on above: mL/min/1.73m2 CKD-EP I Creatinine Equation (2020) Hematocrit Auto (Bld) [Volum e fraction]Ordered By: Steve Farnsworth on 10-24-2024 Hematocrit (Bld) [Volume fraction] 35.9 % Low 37-47 [facility] Hemoglobin measurementOrdere d By: Steve Farnsworth on 10-24-2024 Hemoglobin (Bld) [Mass/Vol] 12.0 g/dL 12.0-15.0 [facility] Immature granulocytes/100 WB C Auto (Bld)Ordered By: Steve Farnsworth on 10-24-2024 Immature granulocytes/100 WBC (Bld) 0.400 % 0.0-0.9 [facility] Comment on above: IG% - Immature Granu locytes (promyelocytes, myelocytes and metamyelocytes) > 1% indicates that a LEFT SHIFT is Present. International normalized rat io (INR) calculationOrdered By: Steve Farnsworth on 10-24-2024 INR Coag (Bld) [Relative time] 1.1 {INR} [facility] L501.4021on 10-24-2024 Trop T High Sen 12 ng/L Normal <=14 [facility] Comment on above: Performed By: #### L 100.0100, L501.4021, L500.2500, L300.3900 #### [facility] Laboratory [address] [place], [address] MCV (mean corpuscular volume ) determinationOrdered By: Steve Farnsworth on 10-24-2024 MCV (RBC) [Entitic vol] 98.1 fL 81-99 [facility] Mean corpuscular hemoglobin (MCH) determinationOrdered By: Steve Farnsworth on 10-24-2024 MCH (RBC) [Entitic mass] 32.8 pg High 27.0-32.0 [facility] Mean corpuscular hemoglobin concentration (MCHC) determinationOrdered By: Steve Farnsworth on 10-24-2024 MCHC (RBC) [Mass/Vol] 33.4 g/dL 32-36 [facility] Mean platelet volume determi nationOrdered By: Steve Farnsworth on 10-24-2024 Platelet mean volume (Bld) [Entitic vol] 11.6 fL 6.2-12.0 [facility] Monocyte percentageOrdered B y: Steve Farnsworth on 10-24-2024 Monocytes/100 WBC (Bld) 7.8 % 0-10 [facility] Neutrophil percentageOrdered By: Steve Farnsworth on 10-24-2024 Neutrophils/100 WBC (Bld) 65.6 % 47-70 [facility] Nucleated red blood cell per centageOrdered By: Steve Yohannes on 10-24-2024 Nucleated RBC/100 WBC (Bld) [Ratio] 0 % 0-5 [facility] Platelet countOrdered By: Rodri Farnsworth on 10-24-2024 Platelets (Bld) [#/Vol] 203 10*3/uL 150-450 [facility] Potassium measurement (mass/ volume)Ordered By: Steve Farnsworth on 10-24-2024 Potassium (Unsp spec) [Mass/Vol] 4.6 mmol/L 3.3-5.1 [facility] Comment on above: Hemolysis present, R esults could be affected. Prothrombin Time w/INRon INR Coag (PPP) [Relative time] 1.1 {INR} Normal [facility] Comment on above: Performed By: #### L 100.0100, L501.4021, L500.2500, L300.3900 #### [facility] [address] [place], [address] PT Coag (PPP) [Time] 14.6 s Normal 11.7-14.9 [facility] Comment on above: Performed By: #### L 100.0100, L501.4021, L500.2500, L300.3900 #### [facility] [address] [place], [address] Prothrombin timeOrdered By: Steve Le on 10-24-2024 PT Coag (PPP) [Time] 14.6 s 11.7-14.9 [facility] RBC Auto (Bld) [#/Vol]Ordere d By: Steve Le on 10-24-2024 RBC (Bld) [#/Vol] 3.66 10*6/uL Low 4.2-5.4 [facility] Serum creatinine measurement (mass/volume)Ordered By: Steve Farnsworth on 10-24-2024 Creatinine [Mass/Vol] 0.89 mg/dL 0.70-1.20 [facility] Serum glucose measurement (m ass/volume)Ordered By: Steve Farnsworth on 10-24-2024 Glucose [Mass/Vol] 99 mg/dL 70-99 [facility] Serum or plasma calcium bony urement (mass/volume)Ordered By: Steve Farnsworth on 10-24-2024 Calcium [Mass/Vol] 9.7 mg/dL 7.6-11.0 [facility] Serum or plasma urea nitroge n measurement (mass/volume)Ordered By: Steve Farnsworth on 10-24-2024 Urea nitrogen [Mass/Vol] 23 mg/dL High 4-19 [facility] Sodium levelOrdered By: Steve Farnsworth on 10-24-2024 Sodium [Moles/Vol] 139 mmol/L 133-145 [facility] Troponin T HS 2 HRon 025 Trop T High Sen 13 ng/L Normal <=14 [facility] Comment on above: Performed By: #### L 499.0042 #### [facility] [address] [place], [address] Troponin T.cardiac [Mass/vol ume] in Serum or Plasma by High sensitivity methodOrdered By: Steve Farnsworth on 10-24-2024 Troponin T.cardiac High sensitivity method [Mass/Vol] 13 ng/L <14 [facility] Troponin T.cardiac High sensitivity method [Mass/Vol] 12 ng/L <14 [facility] White blood cell (WBC) count Ordered By: Steve Farnsworth on 10-24-2024 WBC (Bld) [#/Vol] 4.5 10*3/uL 4.4-11.0 [facility] Duplex ultrasound of renal a rtery reportOrdered By: Juan Antonio Alaniz on 09-25-2024 Study report [facility] Cardi[facility] [address] [facility] [place] [address] Renal Artery Duplex Ultrasound 09/25/24 0844 MR#: [id number] Acct: [id number] Name: GINA WORTHINGTON Rep #:[id number] : 1935 89 From: Juan Antonio Ibrahim Attending Dr: ANDREA Wills Status: REG CLI Ordering Dr: Anali Daniel Date: 09/25/24 Location: [facility] Sex: F C Admitted: Reason [...] Physician: Amadou Liu Performed By: Rosa Arevalo RVT 09/25/24 1317 Date _ Juan Antonio Alaniz MD CC: Dr. Amadou Liu MD; ANDREA Wills ~ Date Dictated: 09/25/24843 Date Transcribed: 09/25/24 131 Perianesthesia Manager: Signed [facility] Work Phone: Renal Artery Duplex Ultrasou ndon 09-25-[address] Ar[address] [facility] Cardiovascular Services [address] [place] [address] Renal Artery Duplex Ultrasound 09/25/2444 MR#: [id number] Acct: [id number] Name: GINA WORTHINGTON Rep #: [id number] : 1935 89 From: Juan Antonio Alaniz [...] By: Rosa Arevalo Anton 09/25/24 1317 Date Juan Antonio Alaniz MD CC: Dr. Amadou Liu MD; ANDREA Wills Date Dictated: 09/25/24 0844 Date Transcribed: 09/25/241316 Perianesthesia Manager: Signed Normal [facility] Cardiology Visit Reporton Cardiology Visit Report [facility] [address] [place], [place] [address] OFFICE VISIT Date of Service: 09/14/24 MR#: [id number] Acct: [id number] Name: GINA WORTHINGTON Rep #: [id number] : 1935 Provider: ANDREA Howard Age/Sex: 89/F Location: [facility] Status: Signed HPI HPI History of [...] locally and wish to be referred to [facility] for further evaluation. Due to wait time, she contacted [facility] team and scheduled an appointment. She has completed chest CTA. She was referred to their valve team. She is established with the cardiothoracic department at [facility] on 01/31/2024. On 02/08/2024 patient underwent [...] Monitor Monitor Intake Visit Reasons: 3 M FU Pediatric Oncologist Required: No Accompanied by: Self Is patient [...] mg PO BID #180 tabs 03/12/24 0 7/11/25 Rx amlodipine 5 mg tablet (Norvasc) 2.5 mg (1/2 x 5 mg) PO QDAY #30 09/14/24 Rx tabs Ejection fraction %: 60 Have you fallen in the past year?: No (lost footing and tripped x 1) PFSH Medical History Anemia Back pain GERD (gastroesophageal reflux disease) Obesity Deep vein thrombosis Essential (primary) hypertension Nonrheumatic aortic (valve) stenosis Hyperlipidemia Atherosclerotic heart disease of tribe coronary artery without angina pectoris Surgical History 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 Normal [facility] 12 Lead EKGon 08-23-2024 [address] [facility] Cardiovascular Services [address] [place] [address] 12 Lead EKG 08/23/24 0035 MR#: [id number] Acct: [id number] Name: GINA WORTHINGTON Rep #: [id number] : 1935 89 From: Pieter Cook MD Attending Dr: Status: DEP ER Ordering Dr: Ruiz uLo DO Date: 08/23/24 Location: ED Sex: F [...] rhythm Normal ECG Confirmed by Pieter Cook ([id number]), business editor MOSES PALOMO ([id number]) on 08/28/2024 11:30:23 AM Referred By: JEANNE Confirmed By: Pieter Cook 08/28/24 1130 Date Pieter Cook MD CC: Dr. Amadou Liu MD; Ruiz Luo, DO Signed Normal [facility] Absolute lymphocyte countOrd ered By: Ruiz Luo on 08-23-2024 Lymphocytes Auto (Unsp spec) [#/Vol] 1.16 10*3/uL 0.83-4.51 [facility] Absolute neutrophil countOrd ered By: Ruiz Luo on 08-23-2024 Neutrophils (Bld) [#/Vol] 2.4 10*3/uL 2.0-7.7 [facility] Anion gap in Serum or Plasma Ordered By: Ruiz Luo on 08-23-2024 Anion gap [Moles/Vol] 11 mmol/L 5-15 [facility] Automated lymphocyte count a s percentage of total leukocytesOrdered By: Ruiz Luo on 08-23-2024 Lymphocytes/100 WBC Auto (Unsp spec) 27.8 % -41 [facility] BUN/creatinine ratioOrdered By: Ruiz Luo on 08-23-2024 Urea nitrogen/Creatinine [Mass ratio] 20.7 mg/mg High 10-20 [facility] Basic Metabolic Profile (BMP )on 08-23-2024 BUN/CRE 20.7 RATIO High - [facility] Comment on above: Performed By: #### M 100.2200 #### [facility] [address] [place], [address] Calcium [Mass/Vol] 9.5 mg/dL Normal 7.6-11.0 [facility] Comment on above: Performed By: #### M 100.2200 #### [facility] [address] [place], [address] Chloride [Moles/Vol] 102 mmol/L Normal 98-108 [facility] Comment on above: Performed By: #### M 100.2200 #### [facility] [address] [place], [address] CO2 [Moles/Vol] 23.9 mmol/L Normal 21.0-32.0 [facility] Comment on above: Performed By: #### M 100.2200 #### [facility] [address] [place], [address] Creatinine [Mass/Vol] 0.94 mg/dL Normal 0.70-1.20 [facility] Comment on above: Performed By: #### M 100.2200 #### [facility] [address] [place], [address] ECRCL 37.21 ml/min Low 50-250 [facility] Comment on above: Performed By: #### M 100.2200 #### [facility] [address] [place], [address] GAP 11 Normal 5-15 [facility] Comment on above: Performed By: #### M 100.2200 #### [facility] [address] [place], [address] GFR/1.73 sq M.predicted among non-blacks MDRD (S/P/Bld) [Vol rate/Area] 58 mL/min/{1.73_m2} Low >60 [facility] Comment on above: Result Comment: mL/m in/1.73m2 CKD-EPI Creatinine Equation (2020) Performed By: #### M 100.2200 #### [facility] [address] [place], [address] Glucose [Mass/Vol] 108 mg/dL High 70-99 [facility] Comment on above: Performed By: #### M 100.2200 #### [facility] [address] [place], [address] Potassium [Moles/Vol] 4.3 mmol/L Normal 3.3-5.1 [facility] Comment on above: Performed By: #### M 100.2200 #### [facility] [address] [place], [address] Sodium [Moles/Vol] 137 mmol/L Normal 133-145 [facility] Comment on above: Performed By: #### M 100.2200 #### [facility] [address] [place], [address] Urea nitrogen [Mass/Vol] 20 mg/dL High - [facility] Comment on above: Performed By: #### M 100.2200 #### [facility] [address] [place], [address] Basophil percentageOrdered B y: Ruiz Luo on 08-23-2024 Basophils/100 WBC (Bld) 0.7 % 0-1 [facility] CBC W/Diff, Automatedon 08-05 Absolute Lymph 1.16 X10 3/uL Normal 0.83-4.51 [facility] Comment on above: Performed By: #### M 100.2200 #### [facility] [address], [address] Absolute Neut 2.4 X10 3/uL Normal 2.0-7.7 [facility] Comment on above: Performed By: #### M 100.2200 #### [facility] [address] [place], [address] Basophils/100 WBC (Bld) 0.7 % Normal 0-1 [facility] Comment on above: Performed By: #### M 100.2200 #### [facility] [address] [place], [address] Eosinophils/100 WBC (Bld) 1.7 % Normal 0-5 [facility] Comment on above: Performed By: #### M 100.2200 #### [facility] [address] [place], [address] Erythrocyte distribution width (RBC) [Ratio] 14.4 % Normal 11.6-14.6 [facility] Comment on above: Performed By: #### M 100.2200 #### [facility] [address] [place], [address] Hematocrit (Bld) [Volume fraction] 34.7 % Low 37-47 [facility] Comment on above: Performed By: #### M 100.2200 #### [facility] [address] [place], [address] Hemoglobin (Bld) [Mass/Vol] 11.6 g/dL Low 12.0-15.0 [facility] Comment on above: Performed By: #### M 100.2200 #### [facility] [address] [place], [address] IG% 0.500 Normal 0.0-0.9 [facility] Comment on above: Result Comment: IG% - Immature Granulocytes (promyelocytes, myelocytes and metamyelocytes) > 1% indicates that a LEFT SHIFT is Present. Performed By: #### M 100.2200 #### [facility] [address] [place], [address] Lymphocytes/100 WBC (Bld) 27.8 % Normal 19-41 [facility] Comment on above: Performed By: #### M 100.2200 #### [facility] [address] [place], [address] MCH (RBC) [Entitic mass] 32.7 pg High 27.0-32.0 [facility] Comment on above: Performed By: #### M 100.2200 #### [facility] [address] [place], [address] MCHC (RBC) [Mass/Vol] 33.4 g/dL Normal 32-36 [facility] Comment on above: Performed By: #### M 100.2200 #### [facility] [address] [place], [address] MCV (RBC) [Entitic vol] 97.7 fL Normal 81-99 [facility] Comment on above: Performed By: #### M 100.2199 #### [facility] [address] [place], [address] Monocytes/100 WBC (Bld) 10.8 % High 0-10 [facility] Comment on above: Performed By: #### M 100.2199 #### [facility] [address] [place], [address] Neutrophils/100 WBC (Bld) 58.5 % Normal 47-70 [facility] Comment on above: Performed By: #### M 100.2199 #### [facility] [address] [place], [address] Nucleated RBC (Bld) [#/Vol] 0 10*3/uL Normal 0-5 [facility] Comment on above: Performed By: #### M 100.2199 #### [facility] [address] [place], [address] Platelet mean volume (Bld) [Entitic vol] 11.2 fL Normal 6.2-12.0 [facility] Comment on above: Performed By: #### M 100.2199 #### [facility] [address] [place], [address] Platelets (Bld) [#/Vol] 203 10*3/uL Normal 150-450 [facility] Comment on above: Performed By: #### M 100.2199 #### [facility] [address] [place], [address] RBC (Bld) [#/Vol] 3.55 10*6/uL Low 4.2-5.4 [facility] Comment on above: Performed By: #### M 100.2199 #### [facility] [address] [place], [address] RDW SD 52.3 fl High 35.1-43.9 [facility] Comment on above: Performed By: #### M 100.2199 #### [facility] [address] [place], [address] WBC (Bld) [#/Vol] 4.2 10*3/uL Low 4.4-11.0 [facility] Comment on above: Performed By: #### M 100.2200 #### [facility] [address] [place], [address] Carbon dioxide, total [Moles /volume] in Central venous bloodOrdered By: Ruiz Luo on 08-23-2024 CO2 [Moles/Vol] 23.9 mmol/L 21.0-32.0 [facility] Chloride assayOrdered By: Karey Luo on 08-23-2024 Chloride [Moles/Vol] 102 mmol/L 98-108 [facility] Emergency Department Summary on 08-23-2024 Emergency Department Summary [facility] Medical Records Department [address] [facility] [place] [address] Emergency Department Summary 08/23/24 MR#: [id number] Acct: [id number] Name: GINA WORTHINGTON Rep #: [id number] : 1935 89 From: Ruiz Luo DO [...] event and therefore comes in for evaluation [facility] Medical History Anemia Back pain GERD (gastroesophageal reflux disease) Obesity Deep vein thrombosis Essential (primary) hypertension Nonrheumatic aortic (valve) stenosis Hyperlipidemia Atherosclerotic heart disease of tribe coronary artery without angina pectoris Home Medications [...] (more content not included)... Normal [facility] Eosinophil percentageOrdered By: Ruiz Luo on 08-23-2024 Eosinophils/100 WBC (Bld) 1.7 % 0-5 [facility] Erythrocyte distribution wid th ratioOrdered By: Ruiz Luo on 08-23-2024 Erythrocyte distribution width (RBC) [Ratio] 14.4 % 11.6-14.6 [facility] Erythrocyte distribution wid th standard deviationOrdered By: Ruiz Luo on 08-23-2024 Erythrocyte distribution width (RBC) [Ratio] 52.3 fl High 35.1-43.9 [facility] Glomerular filtration rate ( GFR) estimation/1.73 sq m using serum, plasma, or whole bOrdered By: Ruiz Luo on 08-23-2024 GFR/1.73 sq M.predicted among non-blacks MDRD (S/P/Bld) [Vol rate/Area] 58 mL/min/{1.73_m2} Low >60 [facility] Comment on above: mL/min/1.73m2 CKD-EP I Creatinine Equation (2020) Hematocrit Auto (Bld) [Volum e fraction]Ordered By: Ruiz Luo on 08-23-2024 Hematocrit (Bld) [Volume fraction] 34.7 % Low 37-47 [facility] Hemoglobin measurementOrdere d By: Ruiz Luo on 08-23-2024 Hemoglobin (Bld) [Mass/Vol] 11.6 g/dL Low 12.0-15.0 [facility] Immature granulocytes/100 WB C Auto (Bld)Ordered By: Ruiz Luo on 08-23-2024 Immature granulocytes/100 WBC (Bld) 0.500 % 0.0-0.9 [facility] Comment on above: IG% - Immature Granu locytes (promyelocytes, myelocytes and metamyelocytes) > 1% indicates that a LEFT SHIFT is Present. L499.0042on 08-23-2024 Trop T High Sen Normal <=14 [facility] Comment on above: Result Comment: Alecia llamas via OM: Ordered Performed By: #### M 100.2200 #### [facility] [address] [place], [place], [id number] L501.4021on 08-23-2024 Trop T High Sen 12 ng/L Normal <=14 [facility] Comment on above: Performed By: #### M 100.2200 #### [facility] [address] [place], [address] MCV (mean corpuscular volume ) determinationOrdered By: Ruiz Luo on 08-23-2024 MCV (RBC) [Entitic vol] 97.7 fL 81-99 [facility] Mean corpuscular hemoglobin (MCH) determinationOrdered By: Ruiz Luo on 08-23-2024 MCH (RBC) [Entitic mass] 32.7 pg High 27.0-32.0 [facility] Mean corpuscular hemoglobin concentration (MCHC) determinationOrdered By: Ruiz Luo on 08-23-2024 MCHC (RBC) [Mass/Vol] 33.4 g/dL 32-36 [facility] Mean platelet volume determi nationOrdered By: Ruiz Luo on 08-23-2024 Platelet mean volume (Bld) [Entitic vol] 11.2 fL 6.2-12.0 [facility] Monocyte percentageOrdered B y: Ruiz Luo on 08-23-2024 Monocytes/100 WBC (Bld) 10.8 % High 0-10 [facility] Neutrophil percentageOrdered By: Ruiz Luo on 08-23-2024 Neutrophils/100 WBC (Bld) 58.5 % 47-70 [facility] Nucleated red blood cell per centageOrdered By: Ruiz Luo on 08-23-2024 Nucleated RBC/100 WBC (Bld) [Ratio] 0 % 0-5 [facility] Platelet countOrdered By: Karey Luo on 08-23-2024 Platelets (Bld) [#/Vol] 203 10*3/uL 150-450 [facility] Potassium measurement (mass/ volume)Ordered By: Ruiz Luo on 08-23-2024 Potassium (Unsp spec) [Mass/Vol] 4.3 mmol/L 3.3-5.1 [facility] RBC Auto (Bld) [#/Vol]Ordere d By: Ruiz Luo on 08-23-2024 RBC (Bld) [#/Vol] 3.55 10*6/uL Low 4.2-5.4 [facility] Serum creatinine measurement (mass/volume)Ordered By: Ruiz Luo on 08-23-2024 Creatinine [Mass/Vol] 0.94 mg/dL 0.70-1.20 [facility] Serum glucose measurement (m ass/volume)Ordered By: Ruiz Luo on 08-23-2024 Glucose [Mass/Vol] 108 mg/dL High 70-99 [facility] Serum or plasma calcium bony urement (mass/volume)Ordered By: Ruiz Luo on 08-23-2024 Calcium [Mass/Vol] 9.5 mg/dL 7.6-11.0 [facility] Serum or plasma urea nitroge n measurement (mass/volume)Ordered By: Ruiz Luo on 08-23-2024 Urea nitrogen [Mass/Vol] 20 mg/dL High 4-19 [facility] Sodium levelOrdered By: Indio Luo on 08-23-2024 Sodium [Moles/Vol] 137 mmol/L 133-145 [facility] Troponin T.cardiac [Mass/vol ume] in Serum or Plasma by High sensitivity methodOrdered By: Ruiz Luo on 08-23-2024 Troponin T.cardiac High sensitivity method [Mass/Vol] 12 ng/L <14 [facility] White blood cell (WBC) count Ordered By: Ruiz Luo on 08-23-2024 WBC (Bld) [#/Vol] 4.2 10*3/uL Low 4.4-11.0 [facility] Echocardiogram study reportO rdered By: Octavio Lopez on 07-18-[address] [facility] [address] [place] [address] Echo Complete 07/17/24 0905 MR#: [id number] Acct: [id number] Name: GINA WORTHINGTON Rep #:[id number] : 1935 89 From: Octavio Ibrahim Attending Dr: ANDREA Wills Status: REG CLI Ordering Dr: Anali Daniel Date: 07/17/24 Location: [facility] Sex: F C Admitted: Reason For [...] Amadou Liu Performed By: Linsey Macedo RDCS 07/18/241509 Date _ Octavio Lopez MD CC: Dr. Amadou Liu MD; ANDREA Wills ~ Date Dictated: 07/17/24904 Date Transcribed: 07/18/241509 Perianesthesia Manager: Signed [facility] Work Phone: Echo Completeon 07-17-[address] [facility] [address] [place] [address] Echo Complete 07/17/249[address] MR#: [id number] Acct: [id number] Name: GINA WORTHINGTON Rep #: [id number] : 1935 89 From: Octavio Lopez MD Attending Dr: ANDREA Wills Status: REG CLI Ordering Dr: Anali Daniel PA Date: 07/05 05/29 Location: [facility] Sex: F C Admitted: Reason For [...] By: Linsey Macedo RDCS 07/18/24 1510 Date Octavio Lopez MD CC: Dr. Amadou Liu MD; ANDREA Wills Date Dictated: 07/17/24904 Date Transcribed: 07/18/24 1510 Transcriptioni (more content not included)... Normal [facility] Cardiology Visit Reporton Cardiology Visit Report [facility] [address] [place] [address] OFFICE VISIT Date of Service: 06/21/24 MR#: [id number] Acct: [id number] Name: GINA WORTHINGTON Rep #: [id number] : 1935 Provider: ANDREA Howard Age/Sex: 89/F Location: [facility] Status: Signed HPI HPI History of [...] locally and wish to be referred to [facility] for further evaluation. Due to wait time, she contacted [facility] team and scheduled an appointment. She has completed chest CTA. She was referred to their valve team. She is established with the cardiothoracic department at [facility] on 01/31/2024. On 02/08/2024 patient underwent [...] last night Intake Visit Reasons: BP Issues Pediatric Oncologist Required: No Accompanied by: Daughter Is patient [...] (valve) stenosis Hyperlipidemia Atherosclerotic heart disease of tribe coronary artery without angina pectoris Surgical History [...] (more content not included)... Normal [facility] Absolute lymphocyte countOrd ered By: Anali Daniel on 06-05-2024 Lymphocytes Auto (Unsp spec) [#/Vol] 1.48 10*3/uL 0.83-4.51 [facility] Absolute neutrophil countOrd ered By: Anali Daniel on 06-05-2024 Neutrophils (Bld) [#/Vol] 3.1 10*3/uL 2.0-7.7 [facility] Automated lymphocyte count a s percentage of total leukocytesOrdered By: Anali Daniel on 06-05-2024 Lymphocytes/100 WBC Auto (Unsp spec) 27.8 % 19-41 [facility] Basophil percentageOrdered B y: Anali Daniel on 06-05-2024 Basophils/100 WBC (Bld) 0.8 % 0-1 [facility] CBC W/Diff, Automatedon Absolute Lymph 1.48 X10 3/uL Normal 0.83-4.51 [facility] Comment on above: Performed By: #### M 100.9661 #### [facility] [place], [address] Absolute Neut 3.1 X10 3/uL Normal 2.0-7.7 [facility] Comment on above: Performed By: #### M 100.2200 #### [facility] [address] [place], [address] Basophils/100 WBC (Bld) 0.8 % Normal 0-1 [facility] Comment on above: Performed By: #### M 100.2200 #### [facility] [address] [place], [address] Eosinophils/100 WBC (Bld) 1.9 % Normal 0-5 [facility] Comment on above: Performed By: #### M 100.2200 #### [facility] [address] [place], [address] Erythrocyte distribution width (RBC) [Ratio] 14.5 % Normal 11.6-14.6 [facility] Comment on above: Performed By: #### M 100.2200 #### [facility] [address] [place], [address] Hematocrit (Bld) [Volume fraction] 33.0 % Low 37-47 [facility] Comment on above: Performed By: #### M 100.2200 #### [facility] [address] [place], [address] Hemoglobin (Bld) [Mass/Vol] 10.7 g/dL Low 12.0-15.0 [facility] Comment on above: Performed By: #### M 100.2200 #### [facility] [address] [place], [address] IG% 0.400 Normal 0.0-0.9 [facility] Comment on above: Result Comment: IG% - Immature Granulocytes (promyelocytes, myelocytes and metamyelocytes) > 1% indicates that a LEFT SHIFT is Present. Performed By: #### M 100.2200 #### [facility] [address] [place], [address] Lymphocytes/100 WBC (Bld) 27.8 % Normal 19-41 [facility] Comment on above: Performed By: #### M 100.2200 #### [facility] [address] [place], [address] MCH (RBC) [Entitic mass] 31.8 pg Normal 27.0-32.0 [facility] Comment on above: Performed By: #### M 100.2200 #### [facility] [address] [place], [address] MCHC (RBC) [Mass/Vol] 32.4 g/dL Normal 32-36 [facility] Comment on above: Performed By: #### M 100.2200 #### [facility] [address] [place], [address] MCV (RBC) [Entitic vol] 98.2 fL Normal 81-99 [facility] Comment on above: Performed By: #### M 100.2200 #### [facility] [address] [place], [address] Monocytes/100 WBC (Bld) 10.2 % High 0-10 [facility] Comment on above: Performed By: #### M 100.2200 #### [facility] [address] [place], [address] Neutrophils/100 WBC (Bld) 58.9 % Normal 47-70 [facility] Comment on above: Performed By: #### M 100.2200 #### [facility] [address] [place], [address] Nucleated RBC (Bld) [#/Vol] 0 10*3/uL Normal 0-5 [facility] Comment on above: Performed By: #### M 100.2200 #### [facility] [address] [place], [address] Platelet mean volume (Bld) [Entitic vol] 11.0 fL Normal 6.2-12.0 [facility] Comment on above: Performed By: #### M 100.2200 #### [facility] [address] [place], [address] Platelets (Bld) [#/Vol] 197 10*3/uL Normal 150-450 [facility] Comment on above: Performed By: #### M 100.2200 #### [facility] [address] [place], [address] RBC (Bld) [#/Vol] 3.36 10*6/uL Low 4.2-5.4 [facility] Comment on above: Performed By: #### M 100.2200 #### [facility] [address] [place], [address] RDW SD 51.4 fl High 35.1-43.9 [facility] Comment on above: Performed By: #### M 100.2200 #### [facility] [address] [place], [address] WBC (Bld) [#/Vol] 5.3 10*3/uL Normal 4.4-11.0 [facility] Comment on above: Performed By: #### M 100.2200 #### [facility] [address] [place], [address] Cardiology Visit Reporton Cardiology Visit Report [facility] [address] [place] [address] OFFICE VISIT Date of Service: 06/05/24 MR#: [id number] Acct: [id number] Name: GINA WORTHINGTON Rep #: [id number] : 1935 Provider: ANDREA Howard Age/Sex: 89/F Location: [facility] Status: Signed HPI HPI History of Present [...] locally and wish to be referred to [facility] for further evaluation. Due to wait time, she contacted [facility] team and scheduled an appointment. She has completed chest CTA. She was referred to their valve team. She is established with the cardiothoracic department at [facility] on 01/31/2024. On 02/08/2024 patient underwent [...] do cardiac rehab while she was in [facility]. 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 Normal [facility] Eosinophil percentageOrdered By: Anali Daniel on 06-05-2024 Eosinophils/100 WBC (Bld) 1.9 % 0-5 [facility] Erythrocyte distribution wid th (RBC) [Ratio]Ordered By: Anali Daniel on 06-05-2024 Erythrocyte distribution width (RBC) [Entitic vol] 51.4 fL High 35.1-43.9 [facility] Erythrocyte distribution wid th ratioOrdered By: Anali Daniel on 06-05-2024 Erythrocyte distribution width (RBC) [Ratio] 14.5 % 11.6-14.6 [facility] Erythrocyte distribution wid th standard deviationOrdered By: Anali Daniel on 06-05-2024 Erythrocyte distribution width (RBC) [Ratio] 51.4 fl High 35.1-43.9 [facility] Hematocrit Auto (Bld) [Volum e fraction]Ordered By: Anali Daniel on 06-05-2024 Hematocrit (Bld) [Volume fraction] 33.0 % Low 37-47 [facility] Hemoglobin measurementOrdere d By: Anali Daniel on 06-05-2024 Hemoglobin (Bld) [Mass/Vol] 10.7 g/dL Low 12.0-15.0 [facility] Immature granulocytes/100 WB C Auto (Bld)Ordered By: Anali Daniel on 06-05-2024 Immature granulocytes/100 WBC (Bld) 0.400 % 0.0-0.9 [facility] Comment on above: IG% - Immature Granu locytes (promyelocytes, myelocytes and metamyelocytes) > 1% indicates that a LEFT SHIFT is Present. Lymphocytes Auto (Unsp spec) [#/Vol]Ordered By: Anali Daniel on 06-05-2024 Lymphocytes (Bld) [#/Vol] 1.48 10*3/uL 0.83-4.51 [facility] Lymphocytes/100 WBC Auto (Un sp spec)Ordered By: Anali Daniel on 06-05-2024 Lymphocytes/100 WBC (Bld) 27.8 % 19-41 [facility] MCV (mean corpuscular volume ) determinationOrdered By: Anali Daniel on 06-05-2024 MCV (RBC) [Entitic vol] 98.2 fL 81-99 [facility] Mean corpuscular hemoglobin (MCH) determinationOrdered By: Anali Daniel on 06-05-2024 MCH (RBC) [Entitic mass] 31.8 pg 27.0-32.0 [facility] Mean corpuscular hemoglobin concentration (MCHC) determinationOrdered By: Anali Daniel on 06-05-2024 MCHC (RBC) [Mass/Vol] 32.4 g/dL 32-36 [facility] Mean platelet volume determi nationOrdered By: Anali Daniel on 06-05-2024 Platelet mean volume (Bld) [Entitic vol] 11.0 fL 6.2-12.0 [facility] Monocyte percentageOrdered B y: Anali Daniel on 06-05-2024 Monocytes/100 WBC (Bld) 10.2 % High 0-10 [facility] Neutrophil percentageOrdered By: Anali Daniel on 06-05-2024 Neutrophils/100 WBC (Bld) 58.9 % 47-70 [facility] Nucleated red blood cell per centageOrdered By: Anali Daniel on 06-05-2024 Nucleated RBC/100 WBC (Bld) [Ratio] 0 % 0-5 [facility] Platelet countOrdered By: Jessica Daniel on 06-05-2024 Platelets (Bld) [#/Vol] 197 10*3/uL 150-450 [facility] RBC Auto (Bld) [#/Vol]Ordere d By: Anali Daniel on 06-05-2024 RBC (Bld) [#/Vol] 3.36 10*6/uL Low 4.2-5.4 [facility] White blood cell (WBC) count Ordered By: Anali Daniel on 06-05-2024 WBC (Bld) [#/Vol] 5.3 10*3/uL 4.4-11.0 [facility] Echo Completeon 03-12-2024 Echo Complete [facility] [place] [address] [address] Echo Complete 03/12/24 1308 MR#: [id number] Acct: [id number] Name: GINA WORTHINGTON Rep #: [id number] : 1935 88 From: Octavio Lopez MD Attending Dr: TETE LANG Status: REG CLI Ordering Dr: TETE LANG Date: 03/12/24 Location: [facility] Sex: F C Admitted: Reason For [...] Dictated: 03/12/24 1308 Date Transcribed: 03/12/24 1503 Perianesthesia Manager: Signed Normal [facility] Echocardiogram study reportO rdered By: Octavio Lopez on 03-12-2024 Study report [facility] [address] [place] [address] Echo Complete 03/12/24 1308 MR#: [id number] Acct: [id number] Name: GINA WORTHINGTON Rep #:[id number] : 1935 88 From: Octavio Ibrahim Attending Dr: TETE LANG Status: REG CLI Ordering Dr: TETE LANG [place] e: 03/12/24 Location: [facility] Sex: F C Admitted: Reason For [...] Dictated: 03/12/24 1308 Date Transcribed: 03/12/24 1503 Perianesthesia Manager: Signed [facility] Work Phone: Urine Cultureon 02-27-2024 UR Presumptive E. coli [place] Count >100,000 Enterococcus faecalis Enterococcus faecalis Presumptive [...] Islt ALEJO 2 S Normal [facility] Comment on above: Performed By: #### M 100.2200 #### [facility] [address], [place], [address] Urine cultureOrdered By: Maryam Liu on 02-24-2024 Bacteria identified Cx Nom (U) Presumptive E. coli Abnormal [facility] Bacteria identified Cx Nom (U) Enterococcus faecalis Abnormal [facility] Cardiology Visit Reporton Cardiology Visit Report [facility] [address] [facility] [place] [address] OFFICE VISIT Date of Service: 02/22/24 MR#: [id number] Acct: [id number] Name: GINA WORTHINGTON Rep #: [id number] : 1935 Provider: ANDREA Howard Age/Sex: 88/F Location: [facility] Status: Signed HPI HPI History of [...] locally and wish to be referred to [facility] for further evaluation. Due to wait time, she contacted [facility] team and scheduled an appointment. She has completed chest CTA. She was referred to their valve team. She is established with the cardiothoracic department at [facility] on 01/31/2024. On 02/08/2024 patient underwent [...] Patient has a virtual follow-up with the [facility] in a few weeks. She is also planning on leaving for [place] for 3 months after the first of the year. She would like to participate in cardiac rehab while she is in [place]. Feel that she would be beneficial with [...] room air Intake Visit Reasons: 6 M FU Pediatric Oncologist Required: No Accompanied by: Daughter Is patient [...] obtains new Primary DrNelli #15 grams carvedilol 12.5 mg tablet 12.5 [...] and left forearm numbness since recent TAVR. [facility] Medical History GERD (gastroesophageal reflux disease) Obesity Deep vein thrombosis Essential (primary) hypertension Nonrheumatic aortic (valve) stenosis Hyperlipidemia Atherosclerotic heart disease of tribe coronary artery without angina p (more content not included)... Normal [facility] Emergency Department Summary on 02-04-2024 Emergency Department Summary [facility] Medical Records Department [address] [place] [address] Emergency Department Summary 02/04/24 MR#: [id number] Acct: [id number] Name: GINA WORTHINGTON Rep #: [id number] : 1935 88 From: Steve Witt PCP: [...] having an upcoming vascular cardiology appointment in [place] in 5 days. History of aortic stenosis. She denies any leg swelling with this. 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 Denies fever or chills. Currently her leg is normal. Prior similar symptoms: Yes PFSH [facility] Medical History GERD (gastroesophageal reflux disease) Obesity Deep vein thrombosis Essential (primary) hypertension Nonrheumatic aortic (valve) stenosis Hyperlipidemia Atherosclerotic heart disease of tribe coronary artery without angina pectoris Home Medications [...] pt obtains new Primary #15 grams carvedilol 6.25 mg tablet 6.25 [...] (more content not included)... Normal [facility] .Auto Diffon 01-23-2024 Basophil, Absolute 0.0 10 3/mcL Normal 0.0-0.3 [facility] Comment on above: Performed By: #### T GANESH, CBC, MDW, ANEU, ADIFF, GFR, MG, PBNP, CMP #### [address] [address] Basophils/100 WBC (Bld) 0.7 % Normal 0.0-2.5 [facility] Comment on above: Performed By: #### T GANESH, CBC, EFFIE, ANEU, ADIFF, GFR, MG, PBNP, CMP #### [address] [address] Eosinophil, Absolute 0.1 10 3/mcL Normal 0.0-0.7 [facility] Comment on above: Performed By: #### T GANESH, CBC, EFFIE, ANEU, ADIFF, GFR, MG, PBNP, CMP #### [address] [address] Eosinophils/100 WBC (Bld) 2.1 % Normal 0.0-6.0 [facility] Comment on above: Performed By: #### T GANESH, TONJA, EFFIE, ANEU, ADIFF, GFR, MG, PBNP, CMP #### [address] [address] Lymphocyte, Absolute 1.8 10 3/mcL Normal 0.9-4.3 [facility] Comment on above: Performed By: #### T GANESH, TONJA, EFFIE, ANEU, ADIFF, GFR, MG, PBNP, CMP #### [address] [address] Lymphocytes/100 WBC (Bld) 40.2 % High 20.0-40.0 [facility] Comment on above: Performed By: #### T GANESH, CBC, MDW, ANEU, ADIFF, GFR, MG, PBNP, CMP #### [address] [address] Monocyte, Absolute 0.5 10 3/mcL Normal 0.1-1.4 [facility] Comment on above: Performed By: #### T GANESH, CBC, MDW, ANEU, ADIFF, GFR, MG, PBNP, CMP #### [address] [address] Monocytes/100 WBC (Bld) 11.7 % Normal 2.0-13.0 [facility] Comment on above: Performed By: #### T GANESH, CBC, MDW, ANEU, ADIFF, GFR, MG, PBNP, CMP #### [address] [address] Neutrophils/100 WBC (Bld) 45.3 % Low 50.0-75.0 [facility] Comment on above: Performed By: #### T GANESH, TONJA, MDW, ANEU, ADIFF, GFR, MG, PBNP, CMP #### [address] [address] .GFRon 01-23-2024 GFR >60 [place] [facility] Comment on above: Result Comment: GFR [...] square meters Performed By: #### T GANESH, CBC, MDW, ANEU, ADIFF, GFR, MG, PBNP, CMP ####[address] [address] GFR Non- >60 Normal [facility] Comment on above: Result Comment: GFR [...] square meters Performed By: #### T GANESH, CBC, MDW, ANEU, ADIFF, GFR, MG, PBNP, CMP ####[address] [address] .MDWon 01-23-2024 Monocyte Distribution Width 17.09 Normal 0.00-20.00 [facility] Comment on above: Result Comment: For ED adult patients suspected of sepsis, MDW<=20.0 does not rule out sepsis or risk of sepsis Performed By: #### T GANESH, CBC, MDW, ANEU, ADIFF, GFR, MG, PBNP, CMP #### [address] [address] .NEUABSon 01-23-2024 Neutrophil, Absolute 2.0 10 3/mcL Low 2.3-8.1 [facility] Comment on above: Performed By: #### T GANESH, TONJA, MDW, ANEU, ADIFF, GFR, MG, PBNP, CMP #### [address] [address] 12 Lead EKG performed by [facility] on 01-23-2024 12 Lead EKG performed by [facility] [address] [place] [address] 12 Lead EKG performed by [facility] 01/23/24 1251 MR#: [id number] Acct: [id number] Name: GINA WORTHINGTON Rep #: [id number] : 1935 88 From: Erik H Roof CAREER DEVELOPMENT CONSULTANT CAREER DEVELOPMENT CONSULTANT-C Attending Dr: ROLANDO PerezC Status: DEP AMB Ordering Dr: Erik Lucas NP CAREER DEVELOPMENT CONSULTANT-C Date: 01/23/24 Location: [facility] Sex: F C Admitted: BMS/12 Lead EKG performed by [facility] ECG Report Interpretation ------Sinus Rhythm -Nonspecific ST depression -Nondiagnostic. ABNORMAL Electronically signed on 01/24/2024 at 08:28 by Octavio Lopezwood Software Version [id number] 01/24/24 0832 Date Erik Lucas CAREER DEVELOPMENT CONSULTANT CAREER DEVELOPMENT CONSULTANT-C CC: Dr. Amadou Liu MD Date Dictated: 01/23/24 1251 Date Transcribed: 01/23/24 125 Perianesthesia Manager: LIAM Signed Normal [facility] CBCon 01-23-2024 Erythrocyte distribution width (RBC) [Ratio] 14.9 % Normal 11.5-15.5 [facility] Comment on above: Performed By: #### T TONJA ANDERSEN MDW, ANEU, ADIFF, GFR, MG, PBNP, CMP #### [address] [address] Hematocrit (Bld) [Volume fraction] 41.0 % Normal 34.0-46.0 [facility] Comment on above: Performed By: #### T TONJA ANDERSEN MDW, ANEU, ADIFF, GFR, MG, PBNP, CMP #### [address] [address] Hgb 13.6 G/dL Normal 12.0-16.0 [facility] Comment on above: Performed By: #### T TONJA ANDERSEN MDW, ANEU, ADIFF, GFR, MG, PBNP, CMP #### [address] [address] MCH (RBC) [Entitic mass] 32.9 pg Normal 27.0-33.0 [facility] Comment on above: Performed By: #### T GANESH, CBC, MDW, ANEU, ADIFF, GFR, MG, PBNP, CMP #### [place] [address] MCHC 33.2 G/dL Normal 32.0-36.0 [facility] Comment on above: Performed By: #### T GANESH, CBC, MDW, ANEU, ADIFF, GFR, MG, PBNP, CMP #### [place] [address] MCV (RBC) [Entitic vol] 99.1 fL High 80.0-99.0 [facility] Comment on above: Performed By: #### T GANESH, CBC, MDW, ANEU, ADIFF, GFR, MG, PBNP, CMP #### [place] [address] Platelet 164 10 3/mcL Normal 150-450 [facility] Comment on above: Performed By: #### T GANESH, CBC, MDW, ANEU, ADIFF, GFR, MG, PBNP, CMP #### [place] [address] Platelet mean volume (Bld) [Entitic vol] 10.1 fL Normal 6.6-10.5 [facility] Comment on above: Performed By: #### T GANESH, CBC, MDW, ANEU, ADIFF, GFR, MG, PBNP, CMP #### [place] [address] RBC 4.14 10 6/mcL Normal 4.10-5.30 [facility] Comment on above: Performed By: #### T GANESH, CBC, MDW, ANEU, ADIFF, GFR, MG, PBNP, CMP #### [place] [address] WBC 4.5 10 3/mcL Normal 4.5-10.8 [facility] Comment on above: Performed By: #### T GANESH, CBC, MDW, ANEU, ADIFF, GFR, MG, PBNP, CMP #### [place] [address] CMPon 01-23-2024 Albumin Level 3.5 G/dL Normal 3.2-4.8 [facility] Comment on above: Performed By: #### T GANESH, CBC, MDW, ANEU, ADIFF, GFR, MG, PBNP, CMP ####[address] [address] Albumin/Globulin [Mass ratio] 1.0 {ratio} Normal 0.9-1.6 [facility] Comment on above: Performed By: #### T GANESH, CBC, MDW, ANEU, ADIFF, GFR, MG, PBNP, CMP ####[address] [address] ALP [Catalytic activity/Vol] 49 U/L Normal 38-126 [facility] Comment on above: Performed By: #### T GANESH, CBC, MDW, ANEU, ADIFF, GFR, MG, PBNP, CMP ####[address] [address] ALT [Catalytic activity/Vol] 9 U/L Low 10-49 [facility] Comment on above: Performed By: #### T GANESH, CBC, MDW, ANEU, ADIFF, GFR, MG, PBNP, CMP ####[place] [id number] AST [Catalytic activity/Vol] 21 U/L Normal 8-34 [facility] Comment on above: Performed By: #### T GANESH, CBC, MDW, ANEU, ADIFF, GFR, MG, PBNP, CMP ####[place] [id number] Bili Total 0.50 mg/dL Normal 0.20-1.20 [facility] Comment on above: Result Comment: Use of this assay is not recommended for patients undergoing treatment with eltrombopag due to the potential for falsely elevated results. Performed By: #### T GANESH, CBC, MDW, ANEU, ADIFF, GFR, MG, PBNP, CMP ####[address] [address] BUN/Creatinine Ratio 18.1 ratio Normal 10.0-22.0 [facility] Comment on above: Performed By: #### T GANESH, CBC, MDW, ANEU, ADIFF, GFR, MG, PBNP, CMP ####[address] [address] Calcium [Mass/Vol] 9.8 mg/dL Normal 8.7-10.4 [facility] Comment on above: Performed By: #### T GANESH, CBC, MDW, ANEU, ADIFF, GFR, MG, PBNP, CMP ####[address] [address] Chloride [Moles/Vol] 107 mmol/L Normal 98-110 [facility] Comment on above: Performed By: #### T GANESH, CBC, MDW, ANEU, ADIFF, GFR, MG, PBNP, CMP ####[address] [address] CO2 [Moles/Vol] 25 mmol/L Normal 22-32 [facility] Comment on above: Performed By: #### T GANESH, CBC, MDW, ANEU, ADIFF, GFR, MG, PBNP, CMP ####[address] [address] Creatinine [Mass/Vol] 0.83 mg/dL Normal 0.50-1.20 [facility] Comment on above: Result Comment: Test ing performed on [employer] analyzer using enzymatic creatinine methodology. Performed By: #### T GANESH, CBC, MDW, ANEU, ADIFF, GFR, MG, PBNP, CMP ####[place] [address] Electrolyte Balance 7.0 mEq/L Normal 4.0-15.0 [facility] Comment on above: Performed By: #### T GANESH, CBC, MDW, ANEU, ADIFF, GFR, MG, PBNP, CMP ####[address] [address] Globulin 3.6 G/dL Normal 1.5-3.8 [facility] Comment on above: Performed By: #### T GANESH, CBC, MDW, ANEU, ADIFF, GFR, MG, PBNP, CMP ####[address] [address] Glucose [Mass/Vol] 93 mg/dL Normal 82-115 [facility] Comment on above: Performed By: #### T GANESH, CBC, MDW, ANEU, ADIFF, GFR, MG, PBNP, CMP ####[place] [address] Potassium [Moles/Vol] 4.4 mmol/L Normal 3.5-5.0 [facility] Comment on above: Performed By: #### T GANESH, CBC, MDW, ANEU, ADIFF, GFR, MG, PBNP, CMP ####[place] [id number] Sodium [Moles/Vol] 139 mmol/L Normal 136-145 [facility] Comment on above: Performed By: #### T GANESH, CBC, MDW, ANEU, ADIFF, GFR, MG, PBNP, CMP ####[place] [address] Total Protein 7.1 G/dL Normal 5.7-8.2 [facility] Comment on above: Performed By: #### T GANESH, CBC, MDW, ANEU, ADIFF, GFR, MG, PBNP, CMP ####[place] [address] Urea nitrogen [Mass/Vol] 15.0 mg/dL Normal 8.0-22.0 [facility] Comment on above: Performed By: #### T GANESH, CBC, MDW, ANEU, ADIFF, GFR, MG, PBNP, CMP ####[place] [address] CT HEAD OR BRAIN W/O CONTRAS Ton [...] 01/23/2024 4:06:01 AM Ordering Provider: KASSANDRA MITTAL [facility] Cardiology Visit Reporton Cardiology Visit Report [facility] [address] [place] [address] OFFICE VISIT Date of Service: 01/23/24 MR#: [id number] Acct: [id number] Name: GINA WORTHINGTON Rep #: [id number] : 1935 Provider: GENA bennett Age/Sex: 88/F Location: [facility] Status: Signed HPI HPI History of [...] locally and wish to be referred to [facility] for further evaluation. Due to wait time, she contacted [facility] team and scheduled an appointment. She has completed chest CTA. She was seen at [facility] for chest pain. Work-up was [...] Intake Visit Reasons: chest tightness per [facility] Pediatric Oncologist Required: No Is patient in pain?: No [...] you fallen in the past year?: No [facility] Medical History (Updated 01/10/24 @ 19:36 by Megha Isidro) GERD (gastroesophageal reflux disease) Obesity Deep vein thrombosis Essential (primary) hypertension Nonrheumatic aortic (valve) stenosis Hyperlipidemia Atherosclerotic heart disease of tribe coronary artery without angina pectoris Surgical History Hx of cataract surgery History of left heart catheterization (07/26/13) History of coronary artery stent placement (06/19/01) Family History (Reviewed 12/21/23 @ 09:22 by Erik Lucas CAREER DEVELOPMENT CONSULTANT, CAREER DEVELOPMENT CONSULTANT-C) Other CVA (cerebral vascular accident) Social History (Reviewed 12/21/23 @ 09:22 by Erik Lucas CAREER DEVELOPMENT CONSULTANT, CAREER DEVELOPMENT CONSULTANT-C) household members: none Smoking Status: Never smoker [...] (more content not included)... Normal [facility] LABORATORYOrdered By: SYSTEM SYSTEM on 01-23-2024 Troponin I.cardiac DL <= 0.01 ng/mL [Mass/Vol] 11 ng/L Normal 0 - 34 ng/L ADM SS Comment on above: Interpretive Data: High Sensitive Troponin I Reference Ranges: Female: 0-34 ng/L Male: 0-54 ng/L Testing performed on [employer] IM analyzer using direct chemiluminescent technology. Albumin BCP dye [Mass/Vol] 3.5 G/dL Normal 3.2 - 4.8 G/dL ADM SS Albumin/Globulin [Mass ratio] 1.0 {ratio} Normal 0.9 - 1.6 ratio AH ADM SS ALP [Catalytic activity/Vol] 49 U/L Normal 38 - 126 U/L AH ADM SS ALT No additional P-5'-P [Catalytic activity/Vol] 9 U/L Low 10 - 49 U/L AH ADM SS AST [Catalytic activity/Vol] 21 U/L [...] mg/dL Normal 8.7 - 10. 4 mg/dL AH ADM SS Chloride [Moles/Vol] 107 mmol/L Normal 98 - 11 0 mEq/L ADM SS CO2 [Moles/Vol] 25 mmol/L Normal 22 - 32 mEq/L ADM SS Creatinine [Mass/Vol] 0.83 mg/dL Normal 0.50 - 1.20 mg/dL ADM SS Comment on above: Interpretive Data: T esting performed on [employer] CH analyzer using enzymatic creatinine methodology. Electrolyte Balance [...] (S/P/Bld) [Vol rate/Area] ml/min/1.73sqm Invalid Interpretation Code [facility] Comment on above: Interpretive Data: GFR Population [...] (S/P/Bld) [Vol rate/Area] ml/min/1.73sqm Invalid Interpretation Code [facility] Comment on above: Interpretive Data: GFR Population [...] G/dL Normal 1.5 - 3.8 G/dL ADM Glucose [Mass/Vol] 93 mg/dL Normal 82 - 115 mg/dL ADM Hematocrit (Bld) [Volume fraction] 41.0 % Normal 34.0 - 46.0 % Workflow SS Hemoglobin (Bld) [Mass/Vol] 13.6 G/dL Normal 12.0 - 16.0 G/dL AH Workflow SS Lymphocytes (Bld) [#/Vol] 1.8 103/mcL Normal 0.9 - 4.3 10^3/mcL AH Workflow SS Lymphocytes/100 WBC (Bld) 40.2 % High 20.0 - 40.0 % AH Workflow SS Magnesium [Mass/Vol] 1.9 mg/dL Normal 1.6 - 2 .4 mg/dL AH ADM SS MCH (RBC) [Entitic mass] 32.9 [...] 0.5 103/mcL Normal 0.1 - 1.4 10^3/mcL AH Workflow SS Monocytes/100 WBC (Bld) 11.7 % Normal 2.0 - 13.0 % AH Workflow SS Natriuretic peptide.B prohormone N-Terminal IA [Mass/Vol] 1383 pg/mL Normal 0 - 1800 pg/mL ADM SS Neutrophils (Bld) [#/Vol] 2.0 103/mcL Low 2.3 - 8.1 10^3/mcL AH Workflow SS Neutrophils/100 WBC (Bld) 45.3 % Low 50.0 - 75.0 % AH Workflow SS Platelet mean volume (Bld) [Entitic vol] 10.1 fL Normal 6.6 - 10.5 fL AH Workflow SS Platelets (Bld) [#/Vol] 164 103/mcL Normal 150 - 450 10^3/mcL AH Workflow SS Potassium [Moles/Vol] 4.4 mmol/L Normal 3.5 - 5.0 mEq/L ADM SS Protein [Mass/Vol] 7.1 G/dL Normal 5.7 - 8.2 G/dL ADM SS RBC (Bld) [#/Vol] 4.14 106/mcL Normal 4.10 - 5.3 0 10^6/mcL AH Workflow SS Sodium [Moles/Vol] 139 mmol/L Normal 136 - 145 mEq/L ADM SS Troponin I.cardiac DL <= 0.01 ng/mL [Mass/Vol] 11 ng/L Normal 0 - 34 ng/L ADM Comment on above: Interpretive Data: High Sensitive Troponin I Reference Ranges: Female: 0-34 ng/L Male: 0-54 ng/L Testing performed on [employer] IM analyzer using direct chemiluminescent technology. Urea nitrogen [Mass/Vol] 15.0 mg/dL Normal 8.0 - 22.0 mg/dL ADM SS Urea nitrogen/Creatinine [Mass ratio] 18.1 ratio Normal 10.0 - 22.0 ratio ADM SS WBC (Bld) [#/Vol] 4.5 103/mcL Normal 4.5 - 10.8 10^3/mcL Workflow SS MGon 01-23-2024 Magnesium [Mass/Vol] 1.9 mg/dL Normal 1.6-2.4 [facility] Comment on above: Performed By: #### Anton ANDERSEN, CBC, MDW, ANEU, ADIFF, GFR, MG, PBNP, CMP #### [address] [address] PBNPon 01-23-2024 Natriuretic peptide B (Bld) [Mass/Vol] 1383 pg/mL Normal 0-1800 [facility] Comment on above: Performed By: ###Frederick ANDERSEN, CBC, MDW, ANEU, ADIFF, GFR, MG, PBNP, CMP #### [address] [address] TROPHSon 01-23-2024 High Sensitivity Troponin I 11 ng/L Normal 0-34 [facility] Comment on above: Result Comment: High Sensitive Troponin I Reference Ranges: Female: 0-34 ng/L Male: 0-54 ng/L Testing performed on [employer] IM analyzer using direct chemiluminescent technology. Performed By: ###Frederick ANDERSEN #### [address] [address] High Sensitivity Troponin I 11 ng/L Normal 0-34 [facility] Comment on above: Result Comment: High Sensitive Troponin I Reference Ranges: Female: 0-34 ng/L Male: 0-54 ng/L Testing performed on [employer] IM analyzer using direct chemiluminescent technology. Performed By: #### T ROPHS, CBC, MDW, ANEU, ADIFF, GFR, MG, PBNP, CMP #### [place] [id number] XR CHEST 1 VIEWon 01-23-2024 XR CHEST [...] 01/23/2024 3:33:33 AM Ordering Provider: KASSANDRA MITTAL [facility] MAIN 12 Lead EKGon 01-10-2024 [address] [facility] Cardiovascular Services [address] [place] [address] 12 Lead EKG 01/10/241924 MR#: [id number] Acct: [id number] Name: GINA WORTHINGTON Rep #: [id number] : 1935 88 From: Pieter Cook MD [...] ) Borderline ECG Confirmed by Pieter Cook ([id number]), business editor CANDIE PEMBERTON ([id number]) on 01/11/2024 1:08:40 PM Referred By: Confirmed By: Pieter Cook 01/11/24 1308 Date Pieter Cook MD CC: Dr. Amadou Liu MD; Dr. Hiram Bill DO Signed Normal [facility] Basic Metabolic Profile (BMP )on 01-10-2024 BUN/CRE 13.4 RATIO Normal 10-20 [facility] Comment on above: Order Comment: 'TROP ' Serial specimen #1, #2 or #3: 11Y Performed By: #### M 100.2200 #### [facility] [address] [place], [address] CA,Total 9.4 mg/dL Normal 8.5-10.1 [facility] Comment on above: Order Comment: 'TROP ' Serial specimen #1, #2 or #3: 11Y Performed By: #### M 100.2200 #### [facility] [address] [place], [address] Chloride [Moles/Vol] 107 mmol/L Normal 98-107 [facility] Comment on above: Order Comment: 'TROP ' Serial specimen #1, #2 or #3: 11Y Performed By: #### M 100.2200 #### [facility] [address] [place], [address] CO2 [Moles/Vol] 26.0 mmol/L Normal 21.0-32.0 [facility] Comment on above: Order Comment: 'TROP ' Serial specimen #1, #2 or #3: 11Y Performed By: #### M 100.2200 #### [facility] [address] [place], [address] Creatinine [Mass/Vol] 0.90 mg/dL Normal 0.55-1.02 [facility] Comment on above: Order Comment: 'TROP ' Serial specimen #1, #2 or #3: 11Y Result Comment: The validity of the calculated GFR GFRAA in patients over 70 years has not been determined. Clinical correlation is essential. Performed By: #### M 100.2200 #### [facility] [address] [place], [address] ECRCL 39.40 ml/min Normal [facility] Comment on above: Order Comment: 'TROP ' Serial specimen #1, #2 or #3: 11Y Performed By: #### M 100.2200 #### [facility] [address] [place], [address] EST GFR - AA 76 mL/min Normal >60 [facility] Comment on above: Order Comment: 'TROP ' Serial specimen #1, #2 or #3: 11Y Result Comment: Afri can Salvadorean GFR Calc Performed By: #### M 100.2200 #### [facility] [address] [place], [address] GAP 7 Normal 5-15 [facility] Comment on above: Order Comment: 'TROP ' Serial specimen #1, #2 or #3: 11Y Performed By: #### M 100.2200 #### [facility] [address] [place], [address] GFR/1.73 sq M.predicted among non-blacks MDRD (S/P/Bld) [Vol rate/Area] 63 mL/min/{1.73_m2} Normal >60 [facility] Comment on above: Order Comment: 'TROP ' Serial specimen #1, #2 or #3: 11Y Result Comment: Non- GFR Calc Performed By: #### M 100.2200 #### [facility] [address] [place], [address] Glucose [Mass/Vol] 94 mg/dL Normal 74-106 [facility] Comment on above: Order Comment: 'TROP ' Serial specimen #1, #2 or #3: 11Y Performed By: #### M 100.2200 #### [facility] [address] [place], [address] Potassium [Moles/Vol] 3.9 mmol/L Normal 3.5-5.1 [facility] Comment on above: Order Comment: 'TROP ' Serial specimen #1, #2 or #3: 11Y Performed By: #### M 100.2200 #### [facility] [address] [place], [address] Sodium [Moles/Vol] 139 mmol/L Normal 136-145 [facility] Comment on above: Order Comment: 'TROP ' Serial specimen #1, #2 or #3: 11Y Performed By: #### M 100.2200 #### [facility] [address] [place], [address] Urea nitrogen [Mass/Vol] 12 mg/dL Normal 7-18 [facility] Comment on above: Order Comment: 'TROP ' Serial specimen #1, #2 or #3: 11Y Performed By: #### M 100.2200 #### [facility] [address] [place], [address] CBC W/Diff, Automatedon 11-0 5-2024 Absolute Lymph 2.10 X10 3/uL Normal 0.83-4.51 [facility] Comment on above: Performed By: #### M 100.2200 #### [facility] [address] [place], [address] Absolute Neut 2.0 X10 3/uL Normal 2.0-7.7 [facility] Comment on above: Performed By: #### M 100.2200 #### [facility] [address] [place], [address] Basophils/100 WBC (Bld) 0.9 % Normal 0-1 [facility] Comment on above: Performed By: #### M 100.2200 #### [facility] [address] [place], [address] Eosinophils/100 WBC (Bld) 0.9 % Normal 0-5 [facility] Comment on above: Performed By: #### M 100.2200 #### [facility] [address] [place], [address] Erythrocyte distribution width (RBC) [Ratio] 14.1 % Normal 11.6-14.6 [facility] Comment on above: Performed By: #### M 100.2200 #### [facility] [address] [place], [address] Hematocrit (Bld) [Volume fraction] 38.9 % Normal 37-47 [facility] Comment on above: Performed By: #### M 100.2200 #### [facility] [address] [place], [address] Hemoglobin (Bld) [Mass/Vol] 13.1 g/dL Normal 12.0-15.0 [facility] Comment on above: Performed By: #### M 100.2200 #### [facility] [address] [place], [address] IG% 0.000 Normal 0.0-0.9 [facility] Comment on above: Result Comment: IG% - Immature Granulocytes (promyelocytes, myelocytes and metamyelocytes) > 1% indicates that a LEFT SHIFT is Present. Performed By: #### M 100.2200 #### [facility] [address] [place], [address] Lymphocytes/100 WBC (Bld) 46.1 % High 19-41 [facility] Comment on above: Performed By: #### M 100.2200 #### [facility] [address] [place], [address] MCH (RBC) [Entitic mass] 33.0 pg High 27.0-32.0 [facility] Comment on above: Performed By: #### M 100.2200 #### [facility] [address] [place], [address] MCHC (RBC) [Mass/Vol] 33.7 g/dL Normal 32-36 [facility] Comment on above: Performed By: #### M 100.2200 #### [facility] [address] [place], [address] MCV (RBC) [Entitic vol] 98.0 fL Normal 81-99 [facility] Comment on above: Performed By: #### M 100.2200 #### [facility] [address] [place], [address] Monocytes/100 WBC (Bld) 9.4 % Normal 0-10 [facility] Comment on above: Performed By: #### M 100.2200 #### [facility] [address] [place], [address] Neutrophils/100 WBC (Bld) 42.7 % Low 47-70 [facility] Comment on above: Performed By: #### M 100.2200 #### [facility] [address] [place], [address] Nucleated RBC (Bld) [#/Vol] 0 10*3/uL Normal 0-5 [facility] Comment on above: Performed By: #### M 100.2200 #### [facility] [address] [place], [address] Platelet mean volume (Bld) [Entitic vol] 11.2 fL Normal 6.2-12.0 [facility] Comment on above: Performed By: #### M 100.2200 #### [facility] [address] [place], [address] Platelets (Bld) [#/Vol] 224 10*3/uL Normal 150-450 [facility] Comment on above: Performed By: #### M 100.2200 #### [facility] [address] [place], [address] RBC (Bld) [#/Vol] 3.97 10*6/uL Low 4.2-5.4 [facility] Comment on above: Performed By: #### M 100.2200 #### [facility] [address] [place], [address] RDW SD 50.9 fl High 35.1-43.9 [facility] Comment on above: Performed By: #### M 100.2200 #### [facility] [address] [place], [address] WBC (Bld) [#/Vol] 4.6 10*3/uL Normal 4.4-11.0 [facility] Comment on above: Performed By: #### M 100.2200 #### [facility] [address] [place], [address] Chest 1 View (Portable)on Chest 1 View (Portable) [facility] Imaging Services [address] [place] [address] Chest 1 View (Portable) MR#: [id number] Acct: [id number] Name: GINA WORTHINGTON Rep #: [id number] : 1935 F 88 From: Tino Cagle MD PCP: Dr. Amadou Liu MD Status: [facility] ER Study: Chest 1 View (Portable) Date of Exam: 01/10/24 Exam# [id number] Ordering Dr: Hiram Bill DO [id number] STUDY: X-RAY CHEST REASON FOR EXAM: Female, [...] Signed: Tino Cagle MD at 20:18 EST , CC: Dr. Amadou Liu MD; Dr. Hiram Bill DO Perianesthesia Manager: Signed Normal [facility] Emergency Department Summary on 01-10-2024 Emergency Department Summary [facility] Medical Records Department [address] [place] [address] Emergency Department Summary 01/10/24 MR#: [id number] Acct: [id number] Name: GINA WORTHINGTON Rep #: [id number] : 1935 88 From: Hiram Bill DO PCP: Dr. Amadou Liu MD Status:REG ER Location: ED HPI History of Present Illness Chief Complaint: Chest Pain [facility] Medical History (Updated 01/10/24 @ 19:36 by Megha Isidro) GERD (gastroesophageal reflux disease) Obesity Deep vein thrombosis Essential (primary) hypertension Nonrheumatic aortic (valve) stenosis Hyperlipidemia Atherosclerotic heart disease of tribe coronary artery without angina pectoris Home Medications [...] Severe mylagias Verified 01/10/24 19:06 Family History (Reviewed 12/21/23 @ 09:22 by Erik Lucas CAREER DEVELOPMENT CONSULTANT, CAREER DEVELOPMENT CONSULTANT-C) Other CVA (cerebral vascular accident) Surgical History Hx of cataract surgery History of left heart catheterization (07/26/13) History of coronary artery stent placement (06/19/01) Social History (Reviewed 12/21/23 @ 09:22 by Erik Lucas CAREER DEVELOPMENT CONSULTANT, CAREER DEVELOPMENT CONSULTANT-C) household members: none Smoking Status: Never smoker [...] (more content not included)... Normal [facility] L501.4020on 01-10-2024 TROPONIN-I HS 12 pg/mL Normal 3.0-54.0 [facility] Comment on above: Result Comment: [employer] leija Note: New Test Units and Gender Specific Reference Ranges. For more information see Policy Stat Procedure [place] High Sensitivity Troponin (TNIH) and attachments. Performed By: #### L 499.0043 #### [facility] [address] [place], [place], [id number] L501.5425on 01-10-2024 TROPONIN-I HS 12 pg/mL Normal 3.0-54.0 [facility] Comment on above: Order Comment: 'TROP ' Serial specimen #1, #2 or #3: 11Y Result Comment: [employer] leija Note: New Test Units and Gender Specific Reference Ranges. For more information see Policy Stat Procedure [place] High Sensitivity Troponin (TNIH) and attachments. Performed By: #### M 100.2200 #### [facility] [address] [place], [address] CBC W Auto Differential pane l (Bld)on 01-07-2024 Basophils (Bld) [#/Vol] 0.03 10*3/uL Normal <0.11 [facility] Comment on above: Order Comment: Speci men Type: BLOOD SPECIMEN Ordering Facility: [facility] Address: [address] [place] [address] Performed By: #### 5 7021-8 #### [facility] CLIA [id number] [address] [place] [address] [place] Basophils/100 WBC (Bld) 0.7 % Normal [facility] Comment on above: Order Comment: Speci men Type: BLOOD SPECIMEN Ordering Facility: [facility] Address: [address] [place] [address] Performed By: #### 5 7021-8 #### [facility] CLIA [id number] [address] [place] [address] [place] Differential cell count method Nom (Bld) Auto Normal [facility] Comment on above: Order Comment: Speci men Type: BLOOD SPECIMEN Ordering Facility: [facility] Address: [address] [place] [address] Performed By: #### 5 7021-8 #### [facility] CLIA [id number] [address] [place] [address] [place] Eosinophils (Bld) [#/Vol] 0.06 10*3/uL Normal <0.46 [facility] Comment on above: Order Comment: Speci men Type: BLOOD SPECIMEN Ordering Facility: [facility] Address: [address] [place] [address] Performed By: #### 5 7021-8 #### [facility] CLIA [id number] [address] [place] [address] [place] Eosinophils/100 WBC (Bld) 1.3 % Normal [facility] Comment on above: Order Comment: Speci men Type: BLOOD SPECIMEN Ordering Facility: [facility] Address: [address] [place] [address] Performed By: #### 5 7021-8 #### [facility] CLIA [id number] [address] [place] [address] [place] Erythrocyte distribution width (RBC) [Ratio] 13.9 % Normal 11.5-15.0 [facility] Comment on above: Order Comment: Speci men Type: BLOOD SPECIMEN Ordering Facility: [facility] Address: [address] [place] [address] Performed By: #### 5 7021-8 #### [facility] CLIA [id number] [address] [place] [address] [place] Hematocrit (Bld) [Volume fraction] 41.1 % Normal 36.0-46.0 [facility] Comment on above: Order Comment: Speci men Type: BLOOD SPECIMEN Ordering Facility: [facility] Address: [address] [place] [address] Performed By: #### 5 7021-8 #### [facility] CLIA [id number] [address] [place] [address] [place] Hemoglobin (Bld) [Mass/Vol] 13.8 g/dL Normal 11.5-15.5 [facility] Comment on above: Order Comment: Speci men Type: BLOOD SPECIMEN Ordering Facility: [facility] Address: [address] [place] [address] Performed By: #### 5 7021-8 #### [facility] CLIA [id number] [address] [place] [address] [place] Immature granulocytes (Bld) [#/Vol] 10*3/uL Normal <0.10 [facility] Comment on above: Order Comment: Speci men Type: BLOOD SPECIMEN Ordering Facility: [facility] Address: [address] [place] [address] Performed By: #### 5 7021-8 #### [facility] CLIA [id number] [address] [place] [address] [place] Immature granulocytes/100 WBC (Bld) 0.2 % Normal [facility] Comment on above: Order Comment: Speci men Type: BLOOD SPECIMEN Ordering Facility: [facility] Address: [address] [place] [address] Performed By: #### 5 7021-8 #### [facility] CLIA [id number] [address] [place] [address] [place] Lymphocytes (Bld) [#/Vol] 1.91 10*3/uL Normal 1.00-4.00 [facility] Comment on above: Order Comment: Speci men Type: BLOOD SPECIMEN Ordering Facility: [facility] Address: [address] [place] [address] Performed By: #### 5 7021-8 #### [facility] CLIA [id number] [address] [place] [address] [place] Lymphocytes/100 WBC (Bld) 42.9 % Normal [facility] Comment on above: Order Comment: Speci men Type: BLOOD SPECIMEN Ordering Facility: [facility] Address: [address] [place] [address] Performed By: #### 5 7021-8 #### [facility] CLIA [id number] [address] [place] [address] [place] MCH (RBC) [Entitic mass] 32.9 pg Normal 26.0-34.0 [facility] Comment on above: Order Comment: Speci men Type: BLOOD SPECIMEN Ordering Facility: [facility] Address: [address] [place] [address] Performed By: #### 5 7021-8 #### [facility] CLIA [id number] [address] [place] [address] [place] MCHC (RBC) [Mass/Vol] 33.6 g/dL Normal 30.5-36.0 [facility] Comment on above: Order Comment: Speci men Type: BLOOD SPECIMEN Ordering Facility: [facility] Address: [address] [place] [address] Performed By: #### 5 7021-8 #### [facility] CLIA [id number] [address] [place] [address] [place] MCV (RBC) [Entitic vol] 97.9 fL Normal 80.0-100.0 [facility] Comment on above: Order Comment: Speci men Type: BLOOD SPECIMEN Ordering Facility: [facility] Address: [address] [place] [address] Performed By: #### 5 7021-8 #### [facility] CLIA [id number] [address] [place] [address] [place] Monocytes (Bld) [#/Vol] 0.50 10*3/uL Normal <0.87 [facility] Comment on above: Order Comment: Speci men Type: BLOOD SPECIMEN Ordering Facility: [facility] Address: [address] [place] [address] Performed By: #### 5 7021-8 #### [facility] CLIA [id number] [address] [place] [address] [place] Monocytes/100 WBC (Bld) 11.2 % Normal [facility] Comment on above: Order Comment: Speci men Type: BLOOD SPECIMEN Ordering Facility: [facility] Address: [address] [place] [address] Performed By: #### 5 7021-8 #### [facility] CLIA [id number] [address] [place] [address] [place] Neutrophils (Bld) [#/Vol] 1.94 10*3/uL Normal 1.45-7.50 [facility] Comment on above: Order Comment: Speci men Type: BLOOD SPECIMEN Ordering Facility: [facility] Address: [address] [place] [address] Performed By: #### 5 7021-8 #### [facility] CLIA [id number] [address] [place] [address] [place] Neutrophils/100 WBC (Bld) 43.7 % Normal [facility] Comment on above: Order Comment: Speci men Type: BLOOD SPECIMEN Ordering Facility: [facility] Address: [address] [place] [address] Performed By: #### 5 7021-8 #### [facility] CLIA [id number] [address] [place] [address] [place] Nucleated RBC (Bld) [#/Vol] 10*3/uL Normal <0.01 [facility] Comment on above: Order Comment: Speci men Type: BLOOD SPECIMEN Ordering Facility: [facility] Address: [address] [place] [address] Performed By: #### 5 7021-8 #### [facility] CLIA [id number] [address] [place] [address] [place] Nucleated RBC/100 WBC (Bld) [Ratio] 0.0 /100 WBC Normal [facility] Comment on above: Order Comment: Speci men Type: BLOOD SPECIMEN Ordering Facility: [facility] Address: [address] [place] [address] Performed By: #### 5 7021-8 #### [facility] CLIA [id number] [address] [place] [address] [place] Platelet mean volume (Bld) [Entitic vol] 12.3 fL Normal 9.0-12.7 [facility] Comment on above: Order Comment: Speci men Type: BLOOD SPECIMEN Ordering Facility: [facility] Address: [address] [place] [address] Performed By: #### 5 7021-8 #### [facility] CLIA [id number] [address] [place] [address] [place] Platelets (Bld) [#/Vol] 213 10*3/uL Normal 150-400 [facility] Comment on above: Order Comment: Speci men Type: BLOOD SPECIMEN Ordering Facility: [facility] Address: [address] [place] [address] Performed By: #### 5 7021-8 #### [facility] CLIA [id number] [address] [place] [address] [place] RBC (Bld) [#/Vol] 4.20 10*6/uL Normal 3.90-5.20 [facility] Comment on above: Order Comment: Speci men Type: BLOOD SPECIMEN Ordering Facility: [facility] Address: [address] [place] [address] Performed By: #### 5 7021-8 #### [facility] CLIA [id number] [address] [place] [address] [place] WBC (Bld) [#/Vol] 4.45 10*3/uL Normal 3.70-11.00 [facility] Comment on above: Order Comment: Speci men Type: BLOOD SPECIMEN Ordering Facility: [facility] Address: [address] [place] [address] Performed By: #### 5 7021-8 #### [facility] CLIA [id number] [address] [place], [place] [address] [place] Comprehensive metabolic 2000 panelon 01-07-2024 Albumin [Mass/Vol] 4.2 g/dL Normal 3.9-4.9 [facility] Comment on above: Order Comment: Speci men Type: BLOOD SPECIMEN Ordering Facility: [facility] Address: [address] [place] [address] Performed By: #### L [id number], 79668-7, 30163-1 #### [facility] CLIA [id number] [address] [place] [address] [place] ALP [Catalytic activity/Vol] 57 U/L Normal 34-123 [facility] Comment on above: Order Comment: Speci men Type: BLOOD SPECIMEN Ordering Facility: [facility] Address: [address] [place] [address] Performed By: #### L [id number], 13907-5, 60924-9 #### [facility] CLIA [id number] [address] [place] [address] [place] ALT [Catalytic activity/Vol] 9 U/L Normal 7-38 [facility] Comment on above: Order Comment: Speci men Type: BLOOD SPECIMEN Ordering Facility: [facility] Address: [address] [place] [address] Performed By: #### L [id number], 47475-6, 67535-2 #### [facility] CLIA [id number] [address] [place] [address] [place] Anion gap [Moles/Vol] 14 mmol/L Normal 8-15 [facility] Comment on above: Order Comment: Speci men Type: BLOOD SPECIMEN Ordering Facility: [facility] Address: [address] [place] [address] Performed By: #### L [id number], 09325-5, 43422-9 #### [facility] CLIA [id number] [address] [place] [address] [place] AST [Catalytic activity/Vol] 23 U/L Normal 13-35 [facility] Comment on above: Order Comment: Speci men Type: BLOOD SPECIMEN Ordering Facility: [facility] Address: [address] [place] [address] Result Comment: Resu lts may be falsely increased due to interference from hemolysis. Suggest reorder as clinically indicated. Performed By: #### L [id number], 92272-1, 15647-6 #### [facility] CLIA [id number] [address] [place] [address] [place] Bilirubin [Mass/Vol] 0.5 mg/dL Normal 0.2-1.3 [facility] Comment on above: Order Comment: Speci men Type: BLOOD SPECIMEN Ordering Facility: [facility] Address: [address] [place] [address] Performed By: #### L [id number], , #### [facility] CLIA [id number] [address] [place] [address] [place] Calcium [Mass/Vol] 9.5 mg/dL Normal 8.5-10.2 [facility] Comment on above: Order Comment: Speci men Type: BLOOD SPECIMEN Ordering Facility: [facility] Address: [address] [place] [address] Performed By: #### L [id number], , #### [facility] CLIA [id number] [address] [place] [address] [place] Chloride [Moles/Vol] 102 mmol/L Normal 98-107 [facility] Comment on above: Order Comment: Speci men Type: BLOOD SPECIMEN Ordering Facility: [facility] Address: [address] [place] [address] Performed By: #### L [id number], , #### [facility] CLIA [id number] [address] [place] [address] [place] CO2 [Moles/Vol] 22 mmol/L Normal 22-30 [facility] Comment on above: Order Comment: Speci men Type: BLOOD SPECIMEN Ordering Facility: [facility] Address: [address] [place] [address] Performed By: #### L [id number], , #### [facility] CLIA [id number] [address] [place], [place] [address] [place] Creatinine [Mass/Vol] 0.85 mg/dL Normal 0.58-0.96 [facility] Comment on above: Order Comment: Sixto toribio Type: BLOOD SPECIMEN Ordering Facility: [facility] Address: [address] [place] [address] Performed By: #### L [id number], 98745-4, #### [facility] CLIA [id number] [address] [place] [address] [place] Creatinine and Glomerular filtration rate.predicted panel (S/P/Bld) 66 mL/min/1.73m??? Normal >=60 [facility] Comment on above: Order Comment: Sixto toribio Type: BLOOD SPECIMEN Ordering Facility: [facility] Address: [address] [place] [address] Result Comment: Jody mated Glomerular Filtration Rate [...] reflect actual GFR. Performed By: #### L [id number], , #### [facility] CLIA [id number] [address] [place] [address] [place] Glucose [Mass/Vol] 83 mg/dL Normal 74-99 [facility] Comment on above: Order Comment: Sixto toribio Type: BLOOD SPECIMEN Ordering Facility: [facility] Address: [address] [place] [address] Result Comment: The [place] [employer] (ADA) provides guidance for cutoff [...] Standards of Medical Care in Diabetes 2016, [place] [employer]. Diabetes Care. 2016.39(Suppl 1). Performed By: #### L [id number], , #### [facility] CLIA [id number] [address] [place] [address] [place] Potassium [Moles/Vol] 4.0 mmol/L Normal 3.7-5.1 [facility] Comment on above: Order Comment: Speci men Type: BLOOD SPECIMEN Ordering Facility: [facility] Address: [address] [place] [address] Performed By: #### L [id number], , #### [facility] CLIA [id number] [address] [place] [address] [place] Protein [Mass/Vol] 7.6 g/dL Normal 6.3-8.0 [facility] Comment on above: Order Comment: Speci men Type: BLOOD SPECIMEN Ordering Facility: [facility] Address: [address] [place] [address] Performed By: #### L [id number], , #### [facility] CLIA [id number] [address] [place] [address] [place] Sodium [Moles/Vol] 138 mmol/L Normal 136-144 [facility] Comment on above: Order Comment: Speci men Type: BLOOD SPECIMEN Ordering Facility: [facility] Address: [address] [place] [address] Performed By: #### L [id number], , #### [facility] CLIA [id number] [address] [place], [place] [address] [place] Urea nitrogen [Mass/Vol] 15 mg/dL Normal 7-21 [facility] Comment on above: Order Comment: Speci men Type: BLOOD SPECIMEN Ordering Facility: [facility] Address: [address] [place] [address] Performed By: #### L [id number], 86837-7, 73088-2 #### [facility] CLIA [id number] [address] [place] [address] [facility] [id number] 01-07-2024 ECG01 Ventricular Rate : 69 BPM Atrial Rate : 69 BPM P-R Interval : 182 ms QRS Duration : 78 ms Q-T Interval : 422 ms QTC Calculation(Bazett) : 452 ms Calculated P Bradley : 55 degrees Calculated R Bradley : 40 degrees Calculated T Bradley : 56 degrees NORMAL SINUS RHYTHM NONSPECIFIC ST ABNORMALITY ABNORMAL ECG 0341 Confirmed by ELLEN ALMODOVAR MD (), business editor ANGEL CASTELLANOS ([id number]) on 01/09/2024 11:11:28 AM NAME : GINA WORTHINGTON PID : [id number] : 1935 Gender : Female Race : ORD : Procedure Date : Jan 07 2024 03:38:09 Edit Date : Jan 09 2024 11:11:37 Diagnosis: NORMAL SINUS RHYTHM NONSPECIFIC ST ABNORMALITY ABNORMAL ECG 0341 Confirmed by ELLEN ALMODOVAR MD (), business editor ANGEL CASTELLANOS ([id number]) on 01/09/2024 11:11:28 AM Test Reason : Location : 2 : EDNS 029 Overread By : ELLEN ALMODOVAR MD Edited By : ANGEL CASTELLANOS Referred By : , Acquired by : Alejandra CHO [facility] ED NOTEon 01-07-2024 ED NOTE HNO ID: [id number] Author: TAZ MORRIS, MICHAEL Service: Emergency Medicine Author Type: Registered Nurse Type: ED Notes Filed: 01/10/2024 11:07 Note Text: Emergency Services: ED Call Back Questionnaire SERVICE DATE: 01/07/2024 Are you feeling better? 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 No Were you able to make a follow up appointment? No, referred to appointment hotline Do you have any further questions? No Is there anything that we could have done differently to improve your ED visit? No SIGNATURE: Taz Morris RN PATIENT NAME: Gina Worthington DATE: January 10, 2024 TIME: 11:06 AM Normal [facility] ED PROV NOTEon 01-07-2024 ED PROV NOTE HNO ID: [id number] Author: ELLEN ALMODOVAR MD Service: Emergency Medicine [...] ECG COMPLETE (more content not included)... Normal [facility] HIGH SENSITIVITY TROPONIN T (INITIAL)on 01-07-2024 Troponin T.cardiac High sensitivity method [Mass/Vol] 13 ng/L High <12 [facility] Comment on above: Order Comment: Sixto toribio Type: BLOOD SPECIMEN Ordering Facility: [facility] Address: [address] [place] [address] Performed By: #### L [id number], 71626-7, 41674-4 #### [facility] CLIA [id number] [address] [place] [address] [place] Magnesium SerPl-ncon 01-06 Magnesium [Mass/Vol] 2.0 mg/dL Normal 1.7-2.3 [facility] Comment on above: Order Comment: Sixto toribio Type: BLOOD SPECIMEN Ordering Facility: [facility] Address: [address] [place] [address] Performed By: #### L [id number], 97726-5, 02814-7 #### [facility] CLIA [id number] [address] [address] [place] [id number] [place] XR CHEST 2V [...] tissues: Unremarkable. IMPRESSION: No acute radiographic abnormality. Perianesthesia Manager: PSCBeverley Transcribe Date/Time: Jan 07 2024 5:32A Dictated by : DIPAK CASAS MD This examination was interpreted and the report reviewed and electronically signed by: DIPAK CASAS MD on Jan 07 2024 5:33AM EST [id number] CN Normal [facility] CNPNon 12-26-2023 CNPN Telephone ([facility]) GINA WORTHINGTON ([id number]) 1935 F T Date Time Provider Department [...] Reason for Visit: Received Outside Medical Records [1060] Primary Visit Diagnosis:Nonrheumat ic aortic (valve) stenosis [I35.0] Order(s):CONSULT TO TAVR/TMVR [[id number]] Order #: [id number]: 1 Prescriptions as of 01/04/2024 - warfarin [...] 12/26/2023 Noted Resolved CAD (coronary artery disease), tribe coronary *08/26/2014 S/P coronary artery stent placement [Z95.5] 08/26/2014 Chest pain [R07.9] 08/26/2014 DVT of lower extremity (deep venous thrombosis)*08/27/19 15 Hypertension [I10] 08/26/2014 Hyperlipidemia [E78.5] 08/26/2014 Statin intolerance [Z78.9] 08/26/2014 Encounter Status:Closed by MELISSA FRIEND on 12/26/23 [facility] CNPNon 12-23-2023 [facility] GINA WORTHINGTON ([id number]) 1935 F Date Time Provider Department 12/23/23 CARDIAC SURGEON [facility] During your visit today, we recorded the following information about you: José Luis Jett 12/23/2023 8:36 AM Signed RECEIVED CALL FROM: Family member - Name: Maria Victoria PATIENT INFORMATION: Name: Gina Worthington : 1935 (home) Email: [email or web address] Referring Provider: No referring provider defined for this encounter. Phone: N/A Fax: Requested Surgeon: First Available/Unspecifie d Reason for appointment/diagnosi s : Aortic stenosis José Luis Jett December 23, 2023 8:34 AM Allergies As of Date: 12/23/2023 (Not on File) Date Reviewed: Never Reviewed Problem List As Of Date: 12/23/2023 (None) Encounter Status:Closed by JOSÉ LUIS JETT on 12/23/23 [facility] Nasopharyngeal Cultureon NAC No growth in 48 hours. Normal [facility] Comment on above: Performed By: #### L 499.0043 #### [facility] Laboratory [facility] [address] [place], [place], [address] Gram Stainon 12-22-2023 Gram Stain 1+ White Blood Cells No organisms seen Normal [facility] Comment on above: Performed By: #### L 499.0043 #### [facility] [address] [place], [address] Cardiology Visit Reporton Cardiology Visit Report [facility] [address] [place], [place] [address] OFFICE VISIT Date of Service: 12/21/23 MR#: [id number] Acct: [id number] Name: GINA WORTHINGTON Rep #: [id number] : 1935 Provider: GENA bennett Age/Sex: 88/F Location: [facility] Status: Signed with Addenda ADDENDUM by [...] Dr. Amadou Liu MD * Signed HPI [facility] History of Present Illness Details: GINA WORTHINGTON, [...] Visit Reasons: 3 WK FU per KR Pediatric Oncologist Required: No Is patient in pain?: No [...] (Updated 12/21/23 @ 09:41 by Erik Lucas NP, CAREER DEVELOPMENT CONSULTANT-C) Deep vein thrombosis Obesity Essential (primary) hypertension Nonrheumatic aortic (valve) stenosis Hyperlipidemia Atherosclerotic heart disease of tribe coronary artery without angina pectoris Surgical History [...] (more content not included)... Normal [facility] Echo Completeon 12-21-2023 Echo Complete [facility] [address] [place] [address] Echo Complete 12/21/23 0800 MR#: [id number] Acct: [id number] Name: GINA WORTHINGTON Rep #: [id number] : 1935 88 From: Octavio Lopez MD Attending Dr: Dr. Octavio Lopez MD Status: EDWINA GUIDRY Ordering Dr: Octavio Lopez MD Date: [...] Octavio Lopez MD Performed By: Elvira Pro, [facility] 12/21/23 1414 Date Octavio Lopez MD CC: Dr. Amadou Liu MD; Dr. Octavio Lopez MD Date Dictated: 12/21/23 0800 Date Transcribed: 12/21/23 1414 Perianesthesia Manager: Signed Normal [facility] HEMOGLOBIN A1con 03-04-2023 HEMOGLOBIN A1c 5.8 % [...] diabetes for children. Performed By: #### 8 78, 63640, 496 #### [facility] [address] [place] [address], [address] [place] [address] Security Dispatcher: Jay Ferro MD TSHon 03-04-2023 TSH Qn 2.48 m[IU]/L Normal 0.40-4.50 [facility] Comment on above: Order Comment: FASTI NG: NO Performed By: #### 8 99, 88933, 496 #### [facility] [address], [address] [place] [address] Security Dispatcher: Jay Ferro MD VITAMIN D,25-OH,TOTAL,IAon 1 VITAMIN D,25-OH,TOTAL,IA 64 ng/mL Normal 30-100 [facility] Comment on above: Result Comment: Yu min D Status 25-OH Vitamin D: Deficiency: <20 ng/mL Insufficiency: 20 - 29 ng/mL Optimal: > or = 30 ng/mL For 25-OH Vitamin D testing on patients on D2-supplementation and patients for whom quantitation of D2 and D3 fractions is required, the QuestAssureD(TM) 25-OH VIT D, (D2,D3), LC/MS/MS is recommended: order code 66208 (patients >2yrs). See Note 1 Note 1 For additional information, please refer to http://education.[place] [place]/faq/MVB587 (This link is being provided for informational/ educational purposes only.) Performed By: #### 8 99, 13075, 496 #### [facility] [address], [address] [place] [address] Security Dispatcher: Jay Ferro MD Absolute lymphocyte countOrd ered By: Mario Anthony on 01-23-2023 Lymphocytes Auto (Unsp spec) [#/Vol] 1.39 10*3/uL 0.83-4.51 [facility] Basophil percentageOrdered B y: Mario Cruz on 01-23-2023 Basophils/100 WBC (Bld) 0.6 % 0-1 [facility] Chloride [Moles/Vol] 106 mmol/L 98-107 [facility] E[facility]/100 WBC (Bld) 0.8 % 0-5 [facility] Glucose [Mass/Vol] 98 mg/dL 74-106 [facility] Neutrophils (Bld) [#/Vol] 3.4 10*3/uL 2.0-7.7 [facility] [facility] Neutrophils/100 WBC (Bld) 63.9 % 47-70 [facility] Potassium [Moles/Vol] 4.2 mmol/L 3.5-5.1 [facility] Sodium [Moles/Vol] 138 mmol/L 136-145 [facility] WBC (Bld) [#/Vol] 5.3 10*3/uL 4.4-11.0 [facility] Blood erythrocytes count (nu mber/volume)Ordered By: Mario Cruz on 01-23-2023 RBC (Bld) [#/Vol] 4.02 10*6/uL 4.2-5.4 [facility] Blood hemoglobin measurement (mass/volume)Ordered By: Mario Cruz on 01-23-2023 Hemoglobin (Bld) [Mass/Vol] 12.5 g/dL 12.0-15.0 [facility] Blood lymphocytes/100 leukoc ytesOrdered By: Mario Cruz on 01-23-2023 Lymphocytes/100 WBC (Bld) 26.2 % 19-41 [facility] Blood monocytes/100 leukocyt esOrdered By: Mario Cruz on 01-23-2023 Monocytes/100 WBC (Bld) 8.1 % 0-10 [facility] Blood platelet mean volumeOr dered By: Mario Cruz on 01-23-2023 Platelet mean volume (Bld) [Entitic vol] 10.7 fL 6.2-12.0 [facility] Determination of erythrocyte mean corpuscular volume (MCV)Ordered By: Mario Cruz on 01-23-2023 MCV (RBC) [Entitic vol] 97.0 fL 81-99 [facility] Hematocrit Auto (Bld) [Volum e fraction]Ordered By: Mario Cruz on 01-23-2023 Hematocrit (Bld) [Volume fraction] 39.0 % 37-47 [facility] Laboratory - Chemistry and C hemistry - challengeOrdered By: Mario Cruz on 01-23-2023 CO2 [Moles/Vol] 29.0 mmol/L 21.0-32.0 [facility] Urea nitrogen/Creatinine [Mass ratio] 27.4 mg/mg 10-20 [facility] Laboratory - Hematology and Cell countsOrdered By: Mario Cruz on 01-23-2023 Erythrocyte distribution width (RBC) [Entitic vol] 49.8 fL 35.1-43.9 [facility] Erythrocyte distribution width (RBC) [Ratio] 14.0 % 11.6-14.6 [facility] Immature granulocytes/100 WBC (Bld) 0.400 % 0.0-0.9 [facility] Comment on above: IG% - Immature Granu locytes (promyelocytes, myelocytes and metamyelocytes) > 1% indicates that a LEFT SHIFT is Present. MCH (RBC) [Entitic mass] 31.1 pg 27.0-32.0 [facility] Nucleated RBC/100 WBC (Bld) [Ratio] 0 % 0-5 [facility] MCHC Auto (RBC) [Mass/Vol]Or dered By: Mario Cruz on 01-23-2023 MCHC (RBC) [Mass/Vol] 32.1 g/dL 32-36 [facility] No Panel InformationOrdered By: Mario Cruz on 01-23-2023 Estimated Creatinine Clearance Calc 34.45 ml/min [facility] Estimated GFR (MDRD) Amer 75 mL/min >60 [facility] Comment on above: GFR Calc Estimated GFR (MDRD) Non-Af Amer 62 mL/min >60 [facility] Comment on above: Non- GFR Calc Troponin I High Sensitivity 11 pg/mL 3.0-54.0 [facility] Comment on above: Please Note: New Frannie t Units and Gender Specific Reference Ranges. For more information see Policy Stat Procedure [place] High Sensitivity Troponin (TNIH) and attachments. Platelets bldOrdered By: Jourdan Cruz on 01-23-2023 Platelets (Bld) [#/Vol] 225 10*3/uL 150-450 [facility] Serum or plasma calcium bony urement (mass/volume)Ordered By: Mario Cruz on 01-23-2023 Calcium [Mass/Vol] 9.1 mg/dL 8.5-10.1 [facility] Serum or plasma creatinine m easurement (mass/volume)Ordered By: Mario Cruz on 01-23-2023 Creatinine [Mass/Vol] 0.91 mg/dL 0.55-1.02 [facility] Comment on above: The validity of the calculated GFR & GFRAA in patients over 70 years has not been determined. Clinical correlation is essential. Serum or plasma urea nitroge n measurement (mass/volume)Ordered By: Mario Cruz on 01-23-2023 Urea nitrogen [Mass/Vol] 25 mg/dL - [facility] Thin prep Papanicolaou smear with manual screeningOrdered By: Mario Cruz on 01-23-2023 Thin prep Papanicolaou smear with manual screening 3 -15 [facility] HEMOGLOBIN A1con 07-16-2022 HEMOGLOBIN A1c 5.5 % of total Hgb Normal <5.7 [facility] Comment on above: [...] diagnosis of diabetes in children. According to [place] [employer] (ADA) guidelines, hemoglobin A1c <7.0% represents optimal control in non- diabetic patients. Different metrics may apply to specific patient populations. Standards of Medical Care in Diabetes(ADA). Performed By: #### 8 [id number], 757 #### [facility] [address], [address] [place], [place] [id number] Security Dispatcher: Jay Ferro MD TSHon 07-16-2022 TSH Qn 2.06 m[IU]/L Normal 0.40-4.50 [facility] Comment on above: Order Comment: FASTI NG: NO Performed By: #### 8 [id number], 876 #### [facility] [address], [address] [place] [id number] Security Dispatcher: Jay Ferro MD Absolute lymphocyte counton 06-15-2021 Lymphocytes Auto (Unsp spec) [#/Vol] 1.54 10*3/uL 0.83-4.51 [facility] Work Phone: Basophil percentageon 2021 Basophils/100 WBC (Bld) 0.4 % 0-1 [facility] Work Phone: Bilirubin [Mass/Vol] 0.40 mg/dL 0.20-1.00 [facility] Work Phone: Comment on above: For patients on eltr ombopag therapy, use of Dimension [place] TBIL is not recommended. Chloride [Moles/Vol] 99 mmol/L 98-107 [facility] Work Phone: [phone] Eosinophils/100 WBC (Bld) 2.0 % 0-5 [facility] Work Phone: Glucose [Mass/Vol] 89 mg/dL 74-106 [facility] Work Phone: Neutrophils (Bld) [#/Vol] 2.9 10*3/uL 2.0-7.7 [facility] Work Phone: Neutrophils/100 WBC (Bld) 56.3 % 47-70 [facility] Work Phone: Potassium [Moles/Vol] 4.0 mmol/L 3.5-5.1 [facility] Work Phone: Protein [Mass/Vol] 7.6 g/dL 6.4-8.2 [facility] Work Phone: Sodium [Moles/Vol] 134 mmol/L 136-145 [facility] Work Phone: WBC (Bld) [#/Vol] 5.1 10*3/uL 4.4-11.0 [facility] Work Phone: Blood erythrocytes count (nu mber/volume)on 06-15-2021 RBC (Bld) [#/Vol] 3.83 10*6/uL 4.2-5.4 [facility] Work Phone: Blood hemoglobin measurement (mass/volume)on 06-15-2021 Hemoglobin (Bld) [Mass/Vol] 12.1 g/dL 12.0-15.0 [facility] Work Phone: Blood lymphocytes/100 leukoc yteson 06-15-2021 Lymphocytes/100 WBC (Bld) 30.3 % 19-41 [facility] Work Phone: Blood monocytes/100 leukocyt eson 06-15-2021 Monocytes/100 WBC (Bld) 10.8 % 0-10 [facility] Work Phone: Blood platelet mean volumeon 06-15-2021 Platelet mean volume (Bld) [Entitic vol] 11.2 fL 6.2-12.0 [facility] Work Phone: Determination of erythrocyte mean corpuscular volume (MCV)on 06-15-2021 MCV (RBC) [Entitic vol] 97.1 fL 81-99 [facility] Work Phone: Erythrocyte sedimentation ra karen 06-15-2021 ESR (Bld) [Velocity] 38 mm/h 0-30 [facility]: Hematocrit Auto (Bld) [Volum e fraction]on 06-15-2021 Hematocrit (Bld) [Volume fraction] 37.2 % 37-47 [facility] Work Phone: Laboratory - Chemistry and C hemistry - challengeon 06-15-2021 ALP [Catalytic activity/Vol] 61 U/L 45-117 [facility] Work Phone: ALT [Catalytic activity/Vol] 15 U/L 13-56 [facility] Work Phone: CO2 [Moles/Vol] 29.0 mmol/L 21.0-32.0 [facility] Work Phone: Globulin (S) [Mass/Vol] 4.3 g/dL 2.2-4.2 [facility] Work Phone: Urea nitrogen/Creatinine [Mass ratio] 29.5 mg/mg 10-20 [facility] Work Phone: Laboratory - Hematology and Cell countson 06-15-2021 Erythrocyte distribution width (RBC) [Entitic vol] 46.1 fL 35.1-43.9 [facility] Work Phone: Erythrocyte distribution width (RBC) [Ratio] 13.0 % 11.6-14.6 [facility] Work Phone: Immature granulocytes/100 WBC (Bld) 0.200 % 0.0-0.9 [facility] Work Phone: Comment on above: IG% - Immature Granu locytes (promyelocytes, myelocytes and metamyelocytes) > 1% indicates that a LEFT SHIFT is Present. MCH (RBC) [Entitic mass] 31.6 pg 27.0-32.0 [facility] Work Phone: Nucleated RBC/100 WBC (Bld) [Ratio] 0 % 0-5 [facility] Work Phone: MCHC Auto (RBC) [Mass/Vol]on 06-15-2021 MCHC (RBC) [Mass/Vol] 32.5 g/dL 32-36 [facility] Work Phone: No Panel Informationon 06-15 Anti-Nuclear Antibody Screen Negative Negative [facility] Work Phone: Comment on above: Performed at: [address] [id number] Director: Nirmal Isidro PhD, Phone: [phone] Estimated GFR (MDRD) Amer 100 mL/min >60 [facility] Work Phone: Comment on above: GFR Calc Estimated GFR (MDRD) Non-Af Amer 83 mL/min >60 [facility] Work Phone: Comment on above: Non- GFR Calc Hepatitis B Surface Antigen Non-Reactive Nonreactive [facility] Work Phone: Hepatitis C Antibody Non-Reactive Nonreactive [facility] Work Phone: Comment on above: Non Reactive: < 0.8 Equivocal: >/= 0.8 to < 1.0 Reactive: >/= 1.0The CDC recommends that a reactive/equivocal HCV antibody result be followed up by the HCV Nucleic Acid Amplificationtest (170769) Platelets bldon 06-15-2021 Platelets (Bld) [#/Vol] 320 10*3/uL 150-450 [facility] Work Phone: Serum cyclic citrullinated p eptide IgG antibody assay (units/volume)on 06-15-2021 Cyclic citrullinated peptide IgG Qn 2 units [facility] Work Phone: Comment on above: Negative <20 Weak po sitive 20 - 39 Moderate positive 40 - 59 Strong positive >59Performed at: [facility] [id number] Director: Shara Gilman MD, Phone: [phone] Serum hepatitis B virus surf kathleen antibody IgG detectionon 06-15-2021 HBV surface IgG Ql (S) Non-Reactive [facility] Work Phone: Comment on above: Non Reactive: Incons istent with immunity less than <10 mIU/mL Reactive: Consistent with immunity greater than or equal to 10 mIU/mL Serum or plasma C reactive p rotein measurement (mass/volume)on 06-15-2021 CRP [Mass/Vol] 27.40 mg/L 0.0-3.0 [facility] Work Phone: Comment on above: C-Reactive Protein ( CRP) provides useful information for thediagnosis, therapy and monitoring of inflammatory processesand associated diseases. For the evaluation of Relative Riskfor Cardiovascular Disease, a High Sensitivity CRP (HSCRP)should be ordered. Serum or plasma albumin bony urement (mass/volume)on 06-15-2021 Albumin [Mass/Vol] 3.3 g/dL 3.2-5.0 [facility] Work Phone: Serum or plasma albumin/glob ulin mass ratioon 06-15-2021 Albumin/Globulin [Mass ratio] 0.8 {ratio} 0.9-2.4 [facility] Work Phone: Serum or plasma calcium bony urement (mass/volume)on 06-15-2021 Calcium [Mass/Vol] 9.2 mg/dL 8.5-10.1 [facility] Work Phone: Serum or plasma creatinine m easurement (mass/volume)on 06-15-2021 Creatinine [Mass/Vol] 0.71 mg/dL 0.55-1.02 [facility] Work Phone: Comment on above: The validity of the calculated GFR & GFRAA in patients over 70 years has not been determined. Clinical correlation is essential. Serum or plasma urea nitroge n measurement (mass/volume)on 06-15-2021 Urea nitrogen [Mass/Vol] 21 mg/dL 7-18 [facility] Work Phone: Serum rheumatoid factor dete ctionon 06-15-2021 Rheumatoid factor Ql (S) < 10.0 IU/mL <15 [facility] Work Phone: Thin prep Papanicolaou smear with manual screeningon 06-15-2021 Thin prep Papanicolaou smear with manual screening 18 U/L 15-37 [facility] Work Phone: Thin prep Papanicolaou smear with manual screening 6 5-15 [facility] Work Phone: Office Visiton 11-25-2016 Documentation of current medications (procedure) Done Invalid Interpretation Code [facility] Work Phone: Fall risk assessment No Invalid Interpretation Code [facility] Work Phone: Protein mass conc Done Invalid Interpretation Code [facility] Work Phone: Office Visit: [facility] 06-03-19 Documentation of current medications (procedure) Done Invalid Interpretation Code [facility] Work Phone: Fall risk assessment No Invalid Interpretation Code [facility] Work Phone: Office Visiton 12-03-2015 Dietary management education, guidance, and counseling (procedure) yes Invalid Interpretation Code [facility] Work Phone: Tobacco smoking status NHIS Never smoker Invalid Interpretation Code [facility] Work Phone: [phone] Tobacco use CPHS Never smoker Invalid Interpretation Code [facility] Work Phone: [phone] Replaced Document: Hilda HUNTER Observationson 06-04-2015 EKG QRS axis 31 deg Invalid Interpretation Code [facility] Work Phone: [phone] electrocardiogram interpretation Sinus Rhythm WITHIN NORMAL LIMITS Invalid Interpretation Code [facility] Work Phone: [phone] GE use only - for [employer] import when terms are not otherwise specified 410 ms Invalid Interpretation Code [facility] Work Phone: [phone] Interpretation Sinus Rhythm WITHIN NORMAL LIMITS Invalid Interpretation Code [facility] Work Phone: [phone] P Bradley 43 deg Invalid Interpretation Code [facility] Work Phone: [phone] P wave axis, electrocardiogram 43 deg Invalid Interpretation Code [facility] Work Phone: [phone] ID Interval 176 ms Invalid Interpretation Code [facility] Work Phone: [phone] ID interval, electrocardiogram 176 ms Invalid Interpretation Code [facility] Work Phone: [phone] Pulse (Heart Rate) 66 /min Invalid Interpretation Code [facility] Work Phone: [phone] QRS axis, electrocardiogram 31 deg Invalid Interpretation Code [facility] Work Phone: [phone] QRS Duration 84 ms Invalid Interpretation Code [facility] Work Phone: [phone] QRS duration, electrocardiogram 84 ms Invalid Interpretation Code [facility] Work Phone: [phone] QT Interval new path ms Invalid Interpretation Code [facility] Work Phone: [phone] QT interval, electrocardiogram new path ms Invalid Interpretation Code [facility] Work Phone: [phone] QTc Armstrong 410 ms Invalid Interpretation Code [facility] Work Phone: [phone] T Bradley 55 deg Invalid Interpretation Code [facility] Work Phone: [phone] T wave axis, electrocardiogram 55 deg Invalid Interpretation Code [facility] Work Phone: [phone] Clinical Lists Updateon 05-06 Left ventricular Ejection fraction 65 % Invalid Interpretation Code [facility] Work Phone: Clinical Lists Update: Michelle hanson 09-16-2014 Alanine aminotransferase (ALT) 32 U/L Invalid Interpretation Code [facility] Work Phone: [phone] Albumin 3.5 g/dL Invalid Interpretation Code [facility] Work Phone: [phone] Albumin/Globulin Ratio 0.9 {ratio} Invalid Interpretation Code [facility] Work Phone: [phone] Alkaline phosphatase (ALP) 63 U/L Invalid Interpretation Code [facility] Work Phone: [phone] ALP enzyme act/vol (Bld) 63 U/L Invalid Interpretation Code [facility] Work Phone: [phone] Anion gap 8 mmol/L Invalid Interpretation Code [facility] Work Phone: [phone] Anion gap 4 molar conc 8 Invalid Interpretation Code [facility] Work Phone: [phone] Aspartate aminotransferase (AST) 27 U/L Invalid Interpretation Code [facility] Work Phone: [phone] basophils as percent of blood leukocytes, manual count 0.3 % Invalid Interpretation Code [facility] Work Phone: [phone] Bilirubin (total) 0.40 mg/dL Invalid Interpretation Code [facility] Work Phone: [phone] BUN/Creatinine Ratio 17.5 mg/mg Invalid Interpretation Code [facility] Work Phone: [phone] Calcium 9.1 mg/dL Invalid Interpretation Code [facility] Work Phone: [phone] Chloride 103 mmol/L Invalid Interpretation Code [facility] Work Phone: [phone] CO2 27.0 mmol/L Invalid Interpretation Code [facility] Work Phone: [phone] CO2 ppres (BldV) 27.0 mmol/L Invalid Interpretation Code [facility] Work Phone: [phone] Creatinine 0.8 mg/dL Invalid Interpretation Code [facility] Work Phone: [phone] eosinophils as percent of blood leukocytes, manual count 2.5 % Invalid Interpretation Code [facility] Work Phone: [phone] Erythrocytes (RBC) 4.02 10*6/uL [facility] Work Phone: [phone] Globulin 3.7 g/dL Invalid Interpretation Code [facility] Work Phone: [phone] Glucose 86 mg/dL Invalid Interpretation Code [facility] Work Phone: [phone] Glucose mass conc 86 mg/dL Invalid Interpretation Code [facility] Work Phone: [phone] Hematocrit (HCT) 39.6 % Invalid Interpretation Code [facility] Work Phone: [phone] Hemoglobin (HGB) 13.1 g/dL Invalid Interpretation Code [facility] Work Phone: [phone] Lymphocytes/100 leukocytes 37.6 % Invalid Interpretation Code [facility] Work Phone: [phone] MCH 32.6 pg High [facility] Work Phone: [phone] MCHC 33.1 g/dL Invalid Interpretation Code [facility] Work Phone: [phone] MCV 98.5 fL Invalid Interpretation Code [facility] Work Phone: [phone] Monocytes/100 leukocytes 9.8 % Invalid Interpretation Code [facility] Work Phone: [phone] neutrophils, band form as percent of blood leukocytes, manual count 49.5 % Invalid Interpretation Code [facility] Work Phone: [phone] Platelets 242 10*3/mm3 Invalid Interpretation Code [facility] Work Phone: [phone] PMV by [place] 11.0 fL Invalid Interpretation Code [facility] Work Phone: [phone] Potassium 4.3 mmol/L Invalid Interpretation Code [facility] Work Phone: [phone] Protein 7.2 g/dL Invalid Interpretation Code [facility] Work Phone: [phone] RDW-CA 13.2 % Invalid Interpretation Code [facility] Work Phone: [phone] Sodium 138 mmol/L Invalid Interpretation Code [facility] Work Phone: [phone] Thyroid stimulating hormone (TSH) 2.28 u[iU]/mL Invalid Interpretation Code [facility] Work Phone: [phone] Urea nitrogen 14 mg/dL Invalid Interpretation Code [facility] Work Phone: [phone] WBC (Leukocytes) 4.0 10*3/uL Low [facility] Work Phone: [phone] Office Visit: [facility] 07-11-19 15 Tobacco smoking status NHIS Never Invalid Interpretation Code [facility] Work Phone: [phone] Office Visit: [facility] 06-18-19 15 Cholesterol 244 mg/dL Invalid Interpretation Code [facility] Work Phone: [phone] Coagulation tissue factor induced in platelet poor plasma 2.3 s Invalid Interpretation Code [facility] Work Phone: [phone] HDL Cholesterol 45 mg/dL Invalid Interpretation Code [facility] Work Phone: [phone] LDL Cholesterol 152 mg/dL Invalid Interpretation Code [facility] Work Phone: [phone] Triglyceride 237 mg/dL Invalid Interpretation Code [facility] Work Phone: [phone] Office Visiton 04-11-2014 cardiac risk group C Invalid Interpretation Code [facility] Work Phone: [phone] General cardiovascular disease 10Y risk [#] Tenafly.D'Agostino N/A Invalid Interpretation Code [facility] Work Phone: [phone] Lab Report: PTon 07-20-2013 INR Coag RelTime (PPP) 1.7 {INR} Normal [facility] Work Phone: [phone] INR in blood by coagulation 1.7 {INR} Normal [facility] Work Phone: [phone] prothrombin time, actual/normal, ratio 18.8 SECONDS High 11.9-14.4 [facility] Work Phone: [phone] PTP 18.8 SECONDS High 11.9-14.4 [facility] Work Phone: [phone] Lab Report: [facility] - copyon specific gravity, urine 1.015 Normal 1.002-1.030 [facility] Work Phone: [phone] EKG Report: [facility] ECG Obse rvationson 03-16-2013 Pulse (Heart Rate) 412 ms Invalid Interpretation Code [facility] Work Phone: [phone] Lab Report: Ordered by Dr. Crow schulte 02-13-2013 very low density lipoproteins 27 mg/dL Invalid Interpretation Code [facility] Work Phone: Influenza virus A and B and SARS-CoV-2 (COVID-19) Ag panel - Upper respiratory specim SARS-CoV-2 (COVID-19) RNA ZACH+probe Ql (Resp) [facility] Work Phone: Vital Signs Date Time Vital Sign Value Performing Clinician Faci lity 11-14-2024 09:22-0400 Body height 157.48 cm Amadou Liu MD Work Phone: [facility] 11-14-2024 09:22-0400 Body mass index (BMI) [Ratio] 27.6 kg/m2 Amadou Liu MD Work Phone: [facility] 11-14-2024 09:22-0400 Body weight 68.49 kg Amadou Liu MD Work Phone: [facility] 11-14-2024 09:22-0400 Diastolic blood pressure 75 mm[Hg] Amadou Liu MD Work Phone: [facility] 11-14-2024 09:22-0400 Heart rate 64 /min Amadou Liu MD Work Phone: [facility] 11-14-2024 09:22-0400 Respiratory rate 16 /min Amadou Liu MD Work Phone: [facility] 11-14-2024 09:22-0400 Systolic blood pressure 183 mm[Hg] Amadou Liu MD Work Phone: [facility] 10-25-2024 00:10-0400 Body temperature 97.8 [degF] Amadou Liu MD Work Phone: [facility] 10-25-2024 00:10-0400 Diastolic blood pressure 65 mm[Hg] Amadou Liu MD Work Phone: [facility] 10-25-2024 00:10-0400 Heart rate 61 /min Amadou Liu MD Work Phone: [facility] 10-25-2024 00:10-0400 Respiratory rate 16 /min Amadou Liu MD Work Phone: [facility] 10-25-2024 00:10-0400 SaO2% (BldA) [Mass fraction] 98 % Amadou Liu MD Work Phone: [facility] 10-25-2024 00:10-0400 Systolic blood pressure 203 mm[Hg] Amadou Liu MD Work Phone: [facility] 10-24-2024 20:27-0400 Body height 157.48 cm Amadou Liu MD Work Phone: [facility] 10-24-2024 20:27-0400 Body mass index (BMI) [Ratio] 28 kg/m2 Amadou Liu MD Work Phone: [facility] 10-24-2024 20:27-0400 Body weight 69.44 kg Amadou Liu MD Work Phone: [facility] 09-14-2024 09:04-0400 Diastolic blood pressure 69 mm[Hg] Amadou Liu MD Work Phone: [facility] 09-14-2024 09:04-0400 Heart rate 60 /min Amadou Liu MD Work Phone: [facility] 09-14-2024 09:04-0400 Systolic blood pressure 146 mm[Hg] Amadou Liu MD Work Phone: [facility] 09-14-2024 08:55-0400 Body height 157.48 cm Amadou Liu MD Work Phone: [facility] 09-14-2024 08:55-0400 Body mass index (BMI) [Ratio] 28.3 kg/m2 Amadou Liu MD Work Phone: [facility] 09-14-2024 08:55-0400 Body weight 70.3 kg Amadou Liu MD Work Phone: [facility] 09-14-2024 08:55-0400 Respiratory rate 18 /min Amadou Liu MD Work Phone: [facility] 08-23-2024 03:05-0400 Body temperature 97.7 [degF] Amadou Liu MD Work Phone: [facility] 08-23-2024 03:05-0400 Diastolic blood pressure 58 mm[Hg] Amadou Liu MD Work Phone: [phone] [place] [address] 08-23-2024 03:05-0400 Heart rate 65 /min Amadou Liu MD Work Phone: [facility] 08-23-2024 03:05-0400 Respiratory rate 16 /min Amadou Liu MD Work Phone: [phone] [address] 08-23-2024 03:05-0400 SaO2% (BldA) [Mass fraction] 98 % Amadou Liu MD Work Phone: [phone] [place] [address] 08-23-2024 03:05-0400 Systolic blood pressure 139 mm[Hg] Amadou Liu MD Work Phone: [phone] [place] [address] 08-23-2024 00:32-0400 Body height 157.48 cm Amadou Liu MD Work Phone: [phone] [address] 08-23-2024 00:32-0400 Body mass index (BMI) [Ratio] 28.3 kg/m2 Amadou Liu MD Work Phone: 0([phone])358-630051 [address] 08-23-2024 00:32-0400 Body weight 70.1 kg Amadou Liu MD Work Phone: [facility] 06-21-2024 08:41-0400 Body height 157.48 cm Amadou Liu MD Work Phone: [phone] [place] [address] 06-21-2024 08:41-0400 Body mass index (BMI) [Ratio] 28.1 kg/m2 Amadou Liu MD Work Phone: [phone] [address] 06-21-2024 08:41-0400 Body weight 69.85 kg Amadou Liu MD Work Phone: [phone] [address] 06-21-2024 08:41-0400 Diastolic blood pressure 89 mm[Hg] Amadou Liu MD Work Phone: [facility] 06-21-2024 08:41-0400 Heart rate 65 /min Amadou Liu MD Work Phone: [facility] 06-21-2024 08:41-0400 Respiratory rate 16 /min Amadou Liu MD Work Phone: [facility] 06-21-2024 08:41-0400 Systolic blood pressure 206 mm[Hg] Amadou Liu MD Work Phone: [facility] 06-05-2024 11:36-0400 Body height 157.48 cm Amadou Liu MD Work Phone: [facility] 06-05-2024 11:36-0400 Body mass index (BMI) [Ratio] 28.5 kg/m2 Amadou Liu MD Work Phone: [facility] 06-05-2024 11:36-0400 Body weight 70.76 kg Amadou Liu MD Work Phone: [facility] 06-05-2024 11:36-0400 Diastolic blood pressure 82 mm[Hg] Amadou Liu MD Work Phone: [facility] 06-05-2024 11:36-0400 Heart rate 66 /min Amadou Liu MD Work Phone: [facility] 06-05-2024 11:36-0400 Respiratory rate 16 /min Amadou Liu MD Work Phone: [facility] 06-05-2024 11:36-0400 Systolic blood pressure 176 mm[Hg] Amadou Liu MD Work Phone: [facility] 02-22-2024 10:30-0500 Body mass index (BMI) [Ratio] 27.6 kg/m2 Amadou Liu MD Work Phone: [facility] 02-22-2024 10:30-0500 Body weight 68.49 kg Amadou Liu MD Work Phone: [facility] 02-22-2024 10:30-0500 Diastolic blood pressure 80 mm[Hg] Amadou Liu MD Work Phone: [facility] 02-22-2024 10:30-0500 Heart rate 66 /min Amadou Liu MD Work Phone: [facility] 02-22-2024 10:30-0500 Respiratory rate 16 /min Amadou Liu MD Work Phone: [facility] 02-22-2024 10:30-0500 SaO2% (BldA) [Mass fraction] 96 % Amadou Liu MD Work Phone: [facility] 02-22-2024 10:30-0500 Systolic blood pressure 124 mm[Hg] Amadou Liu MD Work Phone: [facility] 01-23-2024 05:59-0500 Diastolic Blood Pressure Non-Invasive 73 mm[Hg] MARIANNE PINEDA DO [facility] 01-23-2024 05:59-0500 Heart rate 60 /min MARIANNE PINEDA DO [facility] 01-23-2024 05:59-0500 Respiratory rate 16 /min MARIANNE PINEDA DO [facility] 01-23-2024 05:59-0500 Systolic Blood Pressure Non-Invasive 163 mm[Hg] MARIANNE PINEDA DO [facility] 01-23-2024 04:16-0500 Diastolic Blood Pressure Non-Invasive 79 mm[Hg] MARIANNE PINEDA DO [facility] 01-23-2024 04:16-0500 Heart rate 59 /min MARIANNE PINEDA DO [facility] 01-23-2024 04:16-0500 Respiratory rate 16 /min MARIANNE PINEDA DO [facility] 01-23-2024 04:16-0500 Systolic Blood Pressure Non-Invasive 158 mm[Hg] MARIANNE PINEDA DO [facility] 01-23-2024 03:33-0500 Diastolic Blood Pressure Non-Invasive 98 mm[Hg] MARIANNE PINEDA DO [facility] 01-23-2024 03:33-0500 Heart rate 62 /min MARIANNE PINEDA DO [facility] 01-23-2024 03:33-0500 Respiratory rate 17 /min MARIANNE PINEDA DO [facility] 01-23-2024 03:33-0500 Systolic Blood Pressure Non-Invasive 159 mm[Hg] MARIANNE PINEDA [employer] [facility] 01-23-2024 02:32-0500 Body temperature 97.7 [degF] MARIANNE PINEDA [employer] [facility] 01-23-2024 02:32-0500 Body weight 69.8 kg MARIANNE PINEDA [employer] [facility] 01-23-2024 02:32-0500 Heart rate 74 /min MARIANNE PINEDA [employer] [facility] 01-23-2023 10:58-0500 Diastolic blood pressure 82 mm[Hg] No Primary Care Physician [facility] 01-23-2023 10:58-0500 Heart rate 72 /min No Primary Care Physician [facility] 01-23-2023 10:58-0500 Respiratory rate 14 /min No Primary Care Physician [facility] 01-23-2023 10:58-0500 SaO2% (BldA) [Mass fraction] 99 % No Primary Care Physician [facility] 01-23-2023 10:58-0500 Systolic blood pressure 174 mm[Hg] No Primary Care Physician [facility] 01-23-2023 08:46-0500 Body height 157.48 cm No Primary Care Physician [facility] 01-23-2023 08:46-0500 Body mass index (BMI) [Ratio] 30.5 kg/m2 No Primary Care Physician [facility] 01-23-2023 08:46-0500 Body temperature 96.5 [degF] No Primary Care Physician [facility] 01-23-2023 08:46-0500 Body weight 75.7 kg No Primary Care Physician [facility] 12-06-2022 09:18-0400 Diastolic blood pressure 84 mm[Hg] No Primary Care Physician [facility] 12-06-2022 09:18-0400 Systolic blood pressure 142 mm[Hg] No Primary Care Physician [facility] 12-06-2022 08:50-0400 Body mass index (BMI) [Ratio] 30.3 kg/m2 No Primary Care Physician [facility] 12-06-2022 08:50-0400 Body weight 75.29 kg No Primary Care Physician [facility] 12-06-2022 08:50-0400 Heart rate 81 /min No Primary Care Physician [facility] 12-06-2022 08:50-0400 Respiratory rate 18 /min No Primary Care Physician [facility] 12-06-2022 08:50-0400 SaO2% (BldA) [Mass fraction] 98 % No Primary Care Physician [facility] 03-09-2022 22:59-0500 Diastolic blood pressure 93 mm[Hg] No Primary Care Physician [facility] Work Phone: 03-09-2022 22:59-0500 Heart rate 88 /min No Primary Care Physician [facility] Work Phone: 03-09-2022 22:59-0500 Respiratory rate 16 /min No Primary Care Physician [facility] Work Phone: 03-09-2022 22:59-0500 SaO2% (BldA) [Mass fraction] 96 % No Primary Care Physician [facility] Work Phone: 03-09-2022 22:59-0500 Systolic blood pressure 184 mm[Hg] No Primary Care Physician [facility] Work Phone: 03-09-2022 22:47-0500 Body height 157.48 cm No Primary Care Physician [facility] Work Phone: 03-09-2022 22:47-0500 Body mass index (BMI) [Ratio] 30.5 kg/m2 No Primary Care Physician [facility] Work Phone: 03-09-2022 22:47-0500 Body temperature 96.7 [degF] No Primary Care Physician [facility] Work Phone: 03-09-2022 22:47-0500 Body weight 75.74 kg No Primary Care Physician [facility] Work Phone: 12-09-2021 11:00-0400 Body mass index (BMI) [Ratio] 30.2 kg/m2 No Primary Care Physician [facility] Work Phone: 12-09-2021 11:00-0400 Body weight 74.84 kg No Primary Care Physician [facility] Work Phone: 12-09-2021 11:00-0400 Diastolic blood pressure 77 mm[Hg] No Primary Care Physician [facility] Work Phone: 12-09-2021 11:00-0400 Heart rate 82 /min No Primary Care Physician [facility] Work Phone: 12-09-2021 11:00-0400 Respiratory rate 16 /min No Primary Care Physician [facility] Work Phone: 12-09-2021 11:00-0400 SaO2% (BldA) [Mass fraction] 97 % No Primary Care Physician [facility] Work Phone: 12-09-2021 11:00-0400 Systolic blood pressure 146 mm[Hg] No Primary Care Physician [facility] Work Phone: 11-25-2016 10:16-0400 BMI (Body Mass Index) 31.72 kg/m2 Nallely Adams [facility] Work Phone: 11-25-2016 10:16-0400 BP Diastolic 98 mm[Hg] [facility] Work Phone: 11-25-2016 10:16-0400 BP Systolic 164 mm[Hg] [facility] Work Phone: 11-25-2016 10:16-0400 Height 157.48 cm [facility] Work Phone: 11-25-2016 10:16-0400 Pulse (Heart Rate) 72 /min Nallely Adams [facility] Work Phone: 11-25-2016 10:16-0400 Respiratory Rate 18 /min Nallely Adams [facility] Work Phone: 11-25-2016 10:16-0400 Weight 78.67 kg Nallely Adams [facility] Work Phone: 06-02-2016 11:20-0400 BMI (Body Mass Index) 33.25 kg/m2 Shirley Jewell RN [facility] Work Phone: 06-02-2016 11:20-0400 BP Diastolic 70 mm[Hg] Shirley Jewell RN [facility] Work Phone: 06-02-2016 11:20-0400 BP Systolic 110 mm[Hg] Shirley Jewell RN [facility] Work Phone: 06-02-2016 11:20-0400 Height 157.48 cm Shirley Jewell RN [facility] Work Phone: 06-02-2016 11:20-0400 Pulse (Heart Rate) 64 /min Shirley Jewell RN [facility] Work Phone: 06-02-2016 11:20-0400 Respiratory Rate 16 /min Shirley Jewell RN [facility] Work Phone: 06-02-2016 11:20-0400 Weight 82.46 kg Shirley Jewell RN [facility] Work Phone: 03-10-2016 15:15-0500 BSA (Body Surface Area) 1.84 m2 Shirley Jewell RN [facility] Work Phone: 06-04-2015 08:51-0400 Heart rate 66 /min Nallely Bryan [facility] Work Phone: 10-02-2014 08:53-0400 Body Temperature 97.7 [degF] Shirley Jewell RN [facility] Work Phone: 10-02-2014 08:53-0400 Pulse Oximetry 96 % Shirley Jewell RN [facility] Work Phone: 07-23-2013 12:31-0400 Height 157.48 cm Shirley Jewell RN [facility] Work Phone: 07-23-2013 12:31-0400 Weight 85 kg Shirley Jewell RN [facility] Work Phone: 03-16-2013 14:28-0500 Heart rate 412 ms Nallely Adams [facility] Work Phone: Encounters Encounter Date Encounter Type Care Provider Facility Start: 11-14-2024 End: 11-14-2024 Patient encounter procedure Anali MENDEZ -[facility] Work Phone: Start: 11-14-2024 End: 11-14-2024 ambulatory Amadou Liu MD Work Phone: -[facility] Start: 11-14-2024 End: 11-14-2024 ambulatory [facility] Facility:[facility] Start: 10-24-2024 End: 10-25-2024 Emergency department patient visit Amadou Liu MD Work Phone: -Emergency Department Work Phone: Start: 09-25-2024 Non-patient / Non-visit Dr. Juan Antonio Alaniz MD -[facility] Start: 09-25-2024 End: 09-25-2024 ambulatory Amadou Liu MD Work Phone: -Cardiovascular Services Start: 09-25-2024 End: 09-25-2024 Patient encounter procedure Anali Daniel PA -Cardiovascular Services Work Phone: Start: 09-25-2024 End: 09-25-2024 ambulatory [facility] Facility:[facility] Start: 09-14-2024 End: 09-14-2024 Patient encounter procedure Anali MENDEZ -[facility] Work Phone: Start: 09-14-2024 End: 09-14-2024 ambulatory Amadou Liu MD Work Phone: -[facility] Start: 08-23-2024 End: 08-23-2024 Emergency department patient visit Amadou Liu MD Work Phone: -Emergency Department Work Phone: Start: 07-17-2024 Non-patient / Non-visit Dr. Octavio Lopez MD -[facility] Start: 07-17-2024 End: 07-17-2024 ambulatory Amadou Liu MD Work Phone: [facility] Work Phone: Start: 07-17-2024 End: 07-17-2024 Patient encounter procedure Anali MENDEZ -Cardi[facility] Services Work Phone: Start: 07-17-2024 End: 07-17-2024 ambulatory Chalon Calos Facility:[facility] Start: 06-21-2024 End: 06-21-2024 Patient encounter procedure Anali MENDEZ -[facility] Work Phone: Start: 06-21-2024 End: 06-21-2024 ambulatory Chalon Calos Facility:[facility] Start: 06-05-2024 End: 06-05-2024 Patient encounter procedure Anali MENDEZ -[facility] Work Phone: Start: 06-05-2024 End: 06-05-2024 ambulatory Amadou Liu MD Work Phone: [facility] Work Phone: Start: 06-05-2024 End: 06-05-2024 ambulatory Chalon Calos Facility:[facility] Start: 03-12-2024 Non-patient / Non-visit Dr. Octavio Lopez MD -[facility] Start: 03-12-2024 End: 03-12-2024 ambulatory Amadou Liu MD Work Phone: [facility] Work Phone: Start: 03-12-2024 End: 03-12-2024 Patient encounter procedure Amadou Liu MD Work Phone: -Cardiovascular Services Work Phone: Start: 03-12-2024 End: 03-12-2024 ambulatory JOEL VARMA Facility:[facility] Start: 02-24-2024 End: 02-24-[address] Amadou Liu MD -Laboratory, Specimen Work Phone: Start: 02-24-2024 End: 02-24-2024 [facility] Start: 02-22-2024 End: 02-22-2024 Patient encounter procedure Anali Daniel PA -[facility] Work Phone: Start: 02-22-2024 End: 02-22-2024 ambulatory Amadou Calos Facility:[facility] Start: 02-13-2024 Non-patient / Non-visit Dr. Octavio Lopez MD -[facility] Start: 02-13-2024 ambulatory Amadou Liu Facility:[facility] Start: 02-04-2024 Patient encounter status Amadou Liu MD Work Phone: [facility] Start: 02-04-2024 End: 02-04-2024 Emergency department patient visit Amadou [facility] Facility:[facility] Start: 01-23-2024 End: 01-23-2024 ambulatory Amadou [facility] Facility:[facility] Start: 01-23-2024 End: 01-23-2024 Emergency department patient visit MARIANNE Kaleigh MIRIAM [facility] Start: 01-10-2024 End: 01-10-2024 Emergency department patient visit Hiram Bill Facility:[facility] Start: 01-07-2024 Emergency department patient visit WHIT [place] Facility:[facility] Start: 01-06-2024 End: 01-06-2024 ambulatory Rc Ramirez APRN.[employer] Work Phone: Cardiology Start: 01-06-2024 End: 01-06-2024 Patient encounter procedure Rc Ramirez PRESSURIZATION MECHANIC.[employer] Work Phone: Cardiology Comment on above: T[facility] Consult Start: 12-26-2023 End: 12-26-2023 Telephone encounter Whit George MD Work Phone: Cardiology Comment on above: Received Outside Med ical Records Start: 12-26-2023 ambulatory WHIT GEORGE [facility] Start: 12-23-2023 End: 12-23-2023 Telephone encounter Cardiac Surgeon - [facility]specified [facility] Start: 12-23-2023 ambulatory WHIT [facility] Start: 12-21-2023 End: 12-21-2023 ambulatory Chalon Calos Facility:[facility] Start: 12-21-2023 ambulatory [facility] Start: 12-21-2023 End: 12-21-2023 [facility] Facility:[facility] Start: 01-23-2023 End: 01-23-2023 Emergency department patient visit No Primary Care Physician [facility]-Emergency Department Work Phone: Start: 12-15-2022 Non-patient / Non-visit No Primary Care Physician [facility] Work Phone: Start: 12-15-2022 Non-patient / Non-visit No Primary Care Physician [facility] Start: 12-15-2022 End: 12-15-2022 Patient encounter procedure [facility] Start: 12-06-2022 End: 12-06-2022 Patient encounter procedure No Primary Care Physician [facility] Work Phone: Start: 03-09-2022 End: 03-10-2022 Emergency department patient visit No Primary Care Physician [facility]-Emergency Department Start: 12-28-2021 Non-patient / Non-visit No Primary Care Physician [facility] Start: 12-28-2021 End: 12-28-2021 Patient encounter procedure No Primary Care Physician [facility]-Cardiovascular Services Start: 12-09-2021 End: 12-09-2021 Patient encounter procedure No Primary Care Physician [facility] Start: 06-15-2021 End: 06-15-2021 Patient encounter procedure [facility]-Laboratory, [place] Procedures Date Procedure Procedure Detail Performing Clinician Start: 10-24-2024 CT angiography of ch est with contrast Amadou Liu MD Work Phone: Start: 10-24-2024 Plain chest X-ray Rubin Liu MD Work Phone: Start: 10-24-2024 Estimated creatinine clearance Amadou Liu MD Work Phone: Start: 08-23-2024 Estimated creatinine clearance Amadou Liu [...] JEVON Lopez MD Start: 06-04-2015 End: 06-04-2015 FORESTRY AID Anali Daniel PA-C Work Phone: Start: 06-04-2015 End: 06-04-2015 Ecg routine ecg w/least 12 lds w/i&r Anali Daniel PA-C Work Phone: Start: 06-04-2015 End: 06-04-2015 Follow Up Appt 6 months Anali cleary PA-C Work Phone: Start: 06-04-2015 End: 06-04-2015 FORESTRY AID Anali Daniel PA-C Work Phone: Start: 06-04-2015 End: 06-04-2015 Electrocardiogram, complete Anali Linares PA-C Work Phone: Start: 06-04-2015 End: 06-04-2015 Follow Up Appt 6 months Anali cleary PA-C Work Phone: Start: 12-04-2014 End: 12-05-2014 Documentation of current medications Octavio Lopez MD Start: 12-04-2014 End: 12-04-2014 Follow Up Appt 6 months Kaleigh Mendoza Start: 12-04-2014 End: 12-04-2014 MMKaleigh Lopez MD Start: 12-04-2014 End: 12-05-2014 Documentation [...] APRN.CNP Work Phone: Start: 07-10-2014 End: 07-10-2014 FORESTRY AID Anali Daniel PA-C Work Phone: Start: 07-10-2014 End: 07-11-2014 Documentation of current medications Anali Daniel PA-C Work Phone: Start: 07-10-2014 End: 07-10-2014 Follow Up Appt 4 months Anali cleary PA-C Work Phone: Start: 07-10-2014 End: 07-10-2014 Follow Up Appt Other Anali sutherland PA-C Work Phone: Start: 07-10-2014 End: 07-10-2014 FORESTRY AID Anali Daniel PA-C Work Phone: Start: 07-10-2014 [...] 04-11-2014 End: 04-11-2014 JEVON Lopez MD Start: 08-02-2013 End: 08-02-2013 Follow [...] Octavio Lopez MD Start: 03-16-2013 End: 03-16-2013 FORESTRY AIDSamir Daniel PA-C Work Phone: Start: 03-16-2013 End: 03-16-2013 Follow Up Appt 1 year Anali joshua PA-C Work Phone: Start: 03-16-2013 End: 03-16-2013 Follow Up Appt Other Anali sutherland PA-C Work Phone: Start: 03-16-2013 End: 03-16-2013 PHU Daniel PA-C Work Phone: Start: 03-16-2013 End: 03-16-2013 Follow Up Appt 1 year Aanli joshua PA-C Work Phone: Start: 03-16-2013 End: [...] stent placement Anali MENDEZ Comment on above: [id number] RCA w/ 4.0 x 18 mm Penta Stent 06/2001, 2 stents to RCA 02/08/24 at [facility] History of cataract extraction Hx of cataract surgery Amadou Liu MD Work Phone: SARS-CoV-2 & FLU Ant igen (Rapid) No Primary Care Physician Plan of Treatment Date Care Activity Detail Author Start: 11-14-2024 End: 11-14-2024 Evaluation of diagnostic study results [facility] Start: 10-25-2024 [facility] Start: 10-24-2024 [facility] Start: 08-23-2024 [facility] Start: 08-23-2024 [facility] Start: 11-06-2023 Covid-19 Vaccine ( season) Covid-19 Vaccine ( season) [facility] Start: 11-06-2023 Influenza vaccination Influenza Vaccine (#1) [facility] Start: 03-07-2023 Advance Directive Discussion Advance Directive Discussion [facility] Start: 01-23-2023 [facility] Start: 01-23-2023 [facility] Start: 08-26-2017 Diabetes Screening Diabetes Screening [facility] Start: 06-01-2017 End: 06-01-2017 Appointment [facility] Work Phone: Start: 11-25-2016 End: 11-25-2016 Echocardiography Echocardiogram (complete) [facility] Work Phone: Start: 11-25-2016 End: 11-25-2016 Follow Up Appt 6 months Follow Up Appt 6 months [facility] Work Phone: Start: 11-25-2016 End: 11-25-2016 MMM MMM [facility] Work Phone: Start: 11-25-2016 End: 12-20-2016 Nuclear stress test -Lexiscan Nuclear stress test -Lexiscan [facility] Work Phone: Start: 11-25-2016 End: 11-25-2016 Appointment Appointment [facility] Work Phone: Start: 11-25-2016 End: 11-25-2016 Echocardiography Echocardiogram (complete) [facility] Work Phone: Start: 11-25-2016 End: 11-25-2016 Follow Up Appt 6 months Follow Up Appt 6 months [facility] Work Phone: Start: 11-25-2016 End: 11-25-2016 MMM MMM [facility] Work Phone: Start: 11-25-2016 End: 11-25-2016 Nuclear stress test -Lexiscan Nuclear stress test -Lexiscan [facility] Work Phone: Start: 06-02-2016 End: 06-02-2016 FORESTRY AID FORESTRY AID [facility] Work Phone: Start: 06-02-2016 End: 06-02-2016 Follow Up Appt 6 months Follow Up Appt 6 months [facility] Work Phone: Start: 06-02-2016 End: 06-02-2016 FORESTRY AID FORESTRY AID [facility] Work Phone: Start: 06-02-2016 End: 06-02-2016 Follow Up Appt 6 months Follow Up Appt 6 months [facility] Work Phone: Start: 03-10-2016 End: 05-24-2016 Ambulatory BP Monitor 24 HR Ambulatory BP Monitor 24 HR [facility] Work Phone: Start: 03-10-2016 End: 03-10-2016 Follow Up Appt Other Follow Up Appt Other [facility] Work Phone: Start: 03-10-2016 End: 05-24-2016 Ambulatory BP Monitor 24 HR Ambulatory BP Monitor 24 HR [facility] Work Phone: Start: 03-10-2016 End: 03-10-2016 Follow Up Appt Other Follow Up Appt Other [facility] Work Phone: Start: 12-03-2015 End: 12-03-2015 Follow Up Appt 6 months Follow Up Appt 6 months [facility] Work Phone: Start: 12-03-2015 End: 12-03-2015 MMM MMM [facility] Work Phone: Start: 12-03-2015 End: 12-03-2015 Follow Up Appt 6 months Follow Up Appt 6 months [facility] Work Phone: Start: 12-03-2015 End: 12-03-2015 MMM MMM [facility] Work Phone: Start: 06-04-2015 End: 06-04-2015 FORESTRY AID FORESTRY AID [facility] Work Phone: Start: 06-04-2015 End: 06-04-2015 Ecg routine ecg w/least 12 lds w/i&r EKG (In office) [facility] Work Phone: Start: 06-04-2015 End: 06-04-2015 Follow Up Appt 6 months Follow Up Appt 6 months [facility] Work Phone: Start: 06-04-2015 End: 06-04-2015 FORESTRY AID FORESTRY AID [facility] Work Phone: Start: 06-04-2015 End: 06-04-2015 Electrocardiogram, complete EKG (In office) [facility] Work Phone: Start: 06-04-2015 End: 06-04-2015 Follow Up Appt 6 months Follow Up Appt 6 months [facility] Work Phone: Start: 12-04-2014 End: 12-04-2014 Follow Up Appt 6 months Follow Up Appt 6 months [facility] Work Phone: Start: 12-04-2014 End: 12-04-2014 MMM MMM [facility] Work Phone: Start: 12-04-2014 End: 12-04-2014 Follow Up Appt 6 months Follow Up Appt 6 months [facility] Work Phone: Start: 12-04-2014 End: 12-04-2014 MMM MMM [facility] Work Phone: Start: 07-10-2014 End: 07-10-2014 FORESTRY AID FORESTRY AID [facility] Work Phone: Start: 07-10-2014 End: 07-10-2014 Follow Up Appt 4 months Follow Up Appt 4 months [facility] Work Phone: Start: 07-10-2014 End: 07-10-2014 Follow Up Appt Other Follow Up Appt Other [facility] Work Phone: Start: 07-10-2014 End: 07-10-2014 FORESTRY AID FORESTRY AID [facility] Work Phone: Start: 07-10-2014 End: 07-10-2014 Follow Up Appt 4 months Follow Up Appt 4 months [facility] Work Phone: Start: 07-10-2014 End: 07-10-2014 Follow Up Appt Other Follow Up Appt Other [facility] Work Phone: Start: 07-03-2014 End: 07-03-2014 Follow Up Appt 3 months Follow Up Appt 3 months [facility] Work Phone: Start: 07-03-2014 End: 07-03-2014 Pulmonary Function Test - complete Pulmonary Function Test - complete [facility] Work Phone: Start: 07-03-2014 End: 07-03-2014 Follow Up Appt 3 months Follow Up Appt 3 months [facility] Work Phone: Start: 07-03-2014 End: 07-03-2014 Pulmonary Function Test - complete Pulmonary Function Test - complete [facility] Work Phone: Start: 04-11-2014 End: 04-11-2014 Follow Up Appt 3 months Follow Up Appt 3 months [facility] Work Phone: Start: 04-11-2014 End: 04-11-2014 MMM MMM [facility] Work Phone: Start: 04-11-2014 End: 04-11-2014 Follow Up Appt 3 months Follow Up Appt 3 months [facility] Work Phone: Start: 04-11-2014 End: 04-11-2014 MMM MMM [facility] Work Phone: Start: 08-02-2013 End: 08-02-2013 Follow Up Appt Other Follow Up Appt Other [facility] Work Phone: Start: 08-02-2013 End: 08-02-2013 Follow Up Appt Other Follow Up Appt Other [facility] Work Phone: Start: 07-23-2013 End: 07-04-2014 *Hepatic Function Panel *Hepatic Function Panel [facility] Work Phone: Start: 07-23-2013 End: 07-04-2014 *Hepatic Function Panel *Hepatic Function Panel [facility] Work Phone: Start: 07-20-2013 End: 07-22-2013 *BMP *BMP [facility] Work Phone: Start: 07-20-2013 End: 07-22-2013 CBC W Auto Differential panel - Blood *CBC without Diff [facility] Work Phone: Start: 07-20-2013 End: 07-04-2014 Chest x-ray X-Ray, Chest, PA & Lateral [facility] Work Phone: Start: 07-20-2013 End: 07-20-2013 Ecg routine ecg w/least 12 lds w/i&r EKG (In office) [facility] Work Phone: Start: 07-20-2013 End: 07-20-2013 Echocardiography Echocardiogram (complete) [facility] Work Phone: Start: 07-20-2013 End: 07-22-2013 INR Coag RelTime (PPP) *PT/INR [facility] Work Phone: Start: 07-20-2013 End: 07-20-2013 Left Heart Cath Left Heart Cath [facility] Work Phone: Start: 07-20-2013 End: 07-22-2013 *BMP *BMP [facility] Work Phone: Start: 07-20-2013 End: 07-22-2013 CBC W Auto Differential panel - Blood *CBC without Diff [facility] Work Phone: Start: 07-20-2013 End: 07-04-2014 Chest x-ray X-Ray, Chest, PA & Lateral [facility] Work Phone: Start: 07-20-2013 End: 07-22-2013 Coagulation factor induced.INR assay in platelet poor plasma *PT/INR [facility] Work Phone: Start: 07-20-2013 End: 07-20-2013 Echocardiography Echocardiogram (complete) [facility] Work Phone: Start: 07-20-2013 End: 07-20-2013 Electrocardiogram, complete EKG (In office) [facility] Work Phone: Start: 07-20-2013 End: 07-20-2013 Left Heart Cath Left Heart Cath [facility] Work Phone: Start: 03-16-2013 End: 03-16-2013 FORESTRY AID FORESTRY AID [facility] Work Phone: Start: 03-16-2013 End: 03-16-2013 Follow Up Appt 1 year Follow Up Appt 1 year [facility] Work Phone: Start: 03-16-2013 End: 03-16-2013 Follow Up Appt Other Follow Up Appt Other [facility] Work Phone: Start: 03-16-2013 End: 03-16-2013 FORESTRY AID FORESTRY AID [facility] Work Phone: Start: 03-16-2013 End: 03-16-2013 Follow Up Appt 1 year Follow Up Appt 1 year [facility] Work Phone: Start: 03-16-2013 End: 03-16-2013 Follow Up Appt Other Follow Up Appt Other [facility] Work Phone: Start: 12-29-2012 End: 12-29-2012 Follow Up Appt 6 months Follow Up Appt 6 months [facility] Work Phone: Start: 12-29-2012 End: 12-29-2012 MMM MMM [facility] Work Phone: Start: 12-29-2012 End: 12-29-2012 Follow Up Appt 6 months Follow Up Appt 6 months [facility] Work Phone: Start: 12-29-2012 End: 12-29-2012 MMM MMM [facility] Work Phone: Start: 05-17-2012 End: 08-02-2013 *Hepatic Function Panel *Hepatic Function Panel [facility] Work Phone: Start: 05-17-2012 End: 08-02-2013 Lipid 1996 panel *Lipid Profile [facility] Work Phone: Start: 05-17-2012 End: 08-02-2013 *Hepatic Function Panel *Hepatic Function Panel [facility] Work Phone: Start: 05-17-2012 End: 08-02-2013 Lipid panel [AGGREGATE] *Lipid Profile [facility] Work Phone: Start: 02-21-2012 End: 02-21-2012 Follow Up Appt 1 year Follow Up Appt 1 year [facility] Work Phone: Start: 02-21-2012 End: 02-21-2012 Follow Up Appt 1 year Follow Up Appt 1 year [facility] Work Phone: Start: 02-15-2011 End: 02-15-2011 Follow Up Appt 1 year Follow Up Appt 1 year [facility] Work Phone: Start: 02-15-2011 End: 02-15-2011 Follow Up Appt 1 year Follow Up Appt 1 year [facility] Work Phone: Start: 2010 RSV Vaccine (1 - 1-dose 75+ series) RSV Vaccine (1 - 1-dose 75+ series) [facility] Start: 2000 Pneumococcal Vaccine: 65+ (1 of 1 - PCV) Pneumococcal Vaccine: 65+ (1 of 1 - PCV) [facility] Start: 2000 Screening for osteoporosis Bone Density Screening [facility] Start: 1985 Shingrix Vaccine (1 of 2) Shingrix Vaccine (1 of 2) [facility] Start: 1954 Urine microalbumin profile DTaP,Tdap,Td Vaccine (1 - Tdap) [facility] Start: 1953 Anxiety Screening Anxiety Screening [facility] Start: 1953 Depression Screening Depression Screening [facility] Comprehensive metabo lic 1999 panel - Serum or Plasma [facility] Lipid 1995 panel - S jerardo or Plasma [facility] Work Phone: Lipid 1995 panel - S jerardo or Plasma [facility] Lipid 1995 panel - S jerardo or Plasma [facility] Patient Education [facility] Work Phone: Patient referral [facility] Work Phone: Renal artery [facility] Payers Date Payer Category Payer Self-pay [id number] 2023 Unknown [id number] 2000 Medicare [id number] 2000 Medicare [id number] [facility] [id number] 1935 Unknown [id number] 2.16.8 [id number] Unknown [id number] 2.16.8 40.1.765772.3.579.2.462 Unknown [id number] 2.16.8 40.1.741221.3.579.2.462 Unknown [id number] 2.16.8 40.1.425426.3.579.2.462 Unknown [id number] 2.16.8 40.1.558952.3.579.2.462 Unknown [id number] 2.16.8 40.1.601808.3.579.2.462 Unknown [id number] 2.16.8 40.1.355121.3.579.2.462 Unknown [id number] 2.16.8 40.1.272440.3.579.2.462 Unknown [id number] 2.16.8 40.1.387459.3.579.2.462 Unknown [id number] 2.16.8 40.1.544590.3.579.2.462 Unknown [id number] 2.16.8 40.1.719008.3.579.2.462 Unknown [id number] 2.16.8 40.1.293697.3.579.2.462 Unknown [id number] 2.16.8 40.1.221728.3.579.2.462 Unknown [id number] 2.16.8 40.1.031540.3.579.2.462 Unknown [id number] 2.16.8 40.1.622960.3.579.2.462 Unknown [id number] 2.16.8 40.1.428144.3.579.2.462 Unknown [id number] 2.16.8 40.1.316647.3.579.2.462 Unknown [id number] 2.16.8 40.1.824452.3.579.2.462 Unknown [id number] 2.16.8 40.1.578974.3.579.2.462 Unknown [id number] 2.16.8 40.1.274318.3.579.2.462 Unknown [id number] 2.16.8 40.1.223687.3.579.2.462 Unknown [id number] 2.16.8 40.1.991334.3.579.2.462 Unknown [id number] 2.16.8 40.1.310854.3.579.2.462 Unknown [id number] 2.16.8 40.1.995588.3.579.2.462 Social History Date Type Detail Facility Start: 01-12-2021 End: 01-23-2023 Tobacco smoking status NHIS Unknown if ever smoked [facility] Start: 02-28-2020 With Family [facility] Start: 12-24-2019 Non-smoker [facility] Start: 1935 Sex Assigned At Female W [facility] Start: 1935 Sex assigned at Not on file [facility] Gender identity Not on file [facility] Start: 08-28-2014 End: 10-24-2024 Tobacco smoking status NHIS Never smoked tobacco [facility] Start: 08-28-2014 Tobacco use and exposure Smokeless tobacco non-user [facility] Start: 08-28-2014 Alcoholic beverage intake Current non-drinker of alcohol (finding) [facility] Start: 06-11-2024 End: 06-11-2024 Sex Female (finding) [facility] Goals Date Patient Goal Desired Activity /State Personal health goal Functional Status Date Assessment Result Facility 01-23-2024 Functional Status Room check performed [facility] Mental Status Date Assessment Result Facility 10-24-2024 Cognitive function Voice/Name [facility] Work Phone: 08-23-2024 Cognitive function Voice/Name [facility] Work Phone: 01-23-2024 Mental Status Oriented x 4 [facility] 01-23-2023 Cognitive function Level Of Cons ciousness Awake;Alert;Appropriate;Follow s Commands [facility] Work Phone: Clinical Notes 06-19-2001 to 10-25-2024 Note Date & Type Note Facility 10-25-2024 Discharge summary [facility] 10-24-2024 Radiology Diagnostic study note [facility] Imaging Services [address] [place], [place] [address] CTA Chest W/WO Contrast MR#: [id number] Acct: [id number] Name: GINA WORTHINGTON Rep #: [id number] : 1935 F 89 From: Galo Galarza MD PCP: Dr. Amadou Liu MD Status: REG ER Study:CTA Chest W/WO Contrast Date of Exam: 10/24/24 Exam# [id number] Ordering Dr: Steve Farnsworth DO PROCEDURE: CTA CHEST W/WO CONTRAST 10/24/2024 REASON FOR EXAM: CHEST PAIN TECHNIQUE: CTA CHEST W/WO CONTRAST Multiplanar Sagittal and Coronal images were obtained. 3D post processing was performed. CONTRAST: Isovue 370 VOLUME: 98 mL One or more dose reduction techniques were used (e.g., Automated exposure control, adjustment of the mA and/or kV according to patient size, use of iterative reconstruction technique). RADIATION DOSE SUMMARY: DLP: 343.13 mGycm COMPARISON: Prior chest radiographs, no prior chest CT available. FINDINGS: PULMONARY VESSELS: No filling defects suspicious for pulmonary arterial emboli identified. Mildly prominent caliber of the central pulmonary vessels may reflect pulmonary arterial hypertension. No evidence of right heart strain. LUNGS/PLEURA: Clear. No airspace consolidation or findings of pulmonary edema. No pneumothorax or pleural effusion. Mild bibasilar dependent atelectasis. Central airways are patent. MEDIASTINUM: Unremarkable. No lymphadenopathy. HEART: Mildly enlarged. No pericardial effusion. Moderate-advanced coronary artery calcifications and/or stenting, and prominent mitral annulus calcification. TAVR hardware. THORACIC AORTA: Normal in course and caliber, with moderate atherosclerotic disease. UPPER ABDOMEN: Few small nonobstructive renal stones are seen in the upper pole of the right kidney. No hydronephrosis is evident on either side. Otherwise unremarkable. BONES: Qualitative osteopenia. Multilevel degenerative changes of the spine with multiple midthoracic chronic appearing wedge compression fracture deformities resulting in exaggerated thoracic kyphosis. CT/CTA Chest W/WO Contrast IMPRESSION: 1. No acute intrathoracic findings. No pulmonary arterial emboli. 2. Cardiomegaly. No thoracic aortic aneurysm or dissection. Moderate atherosclerotic disease. 3. Few small nonobstructive renal stones seen in the upper pole of the right kidney. Reading Location: [facility] CC: Dr. Amadou Liu MD; Dr. Steve Farnsworth DO ~ Perianesthesia Manager: Signed [facility] 10-24-2024 Radiology Diagnostic study note [facility] Imaging Services [address] [place] [address] Chest 1 View (Portable) MR#: [id number] Acct: [id number] Name: GINA WORTHINGTON Rep #: [id number] : 1935 F 89 From: Kedar Cotto MD PCP: Dr. Amadou Liu MD Status: REG ER Study:Chest 1 View (Portable) Date of Exam: 10/24/24 Exam# [id number] Ordering Dr: Steve Farnsworth DO ADDENDUM by Dr. Daryl Cotto MD on 10/24/24 at 2157 Findings were communicated with the ordering physician Dr. Marvin Farnsworth 9:32 p.m.. 10/24/2024. Reading Location: [facility] 10/24/242156 Date cc: Dr. Amadou Liu MD; Dr. Steve Farnsworth DO ~* Signed PROCEDURE: CHEST 1 VIEW (PORTABLE) 10/24/2024 REASON FOR EXAM: CHEST PAIN TECHNIQUE: Frontal view of the chest. COMPARISON: Chest x-ray 01/10/2024. FINDINGS: Hardware: Monitor electrodes overlie the chest. Heart: No cardiomegaly. An aortic valve prosthesis is in place.. Suspected mediastinum widening. Lungs: Clear. No pleural effusion or pneumothorax. Bones: No acute bony abnormalities. RAD/Chest 1 View (Portable) IMPRESSION: Suspected mediastinal widening. CTA chest may be performed for further evaluation. Reading Location: [facility] CC: Dr. Amadou Liu MD; Dr. Steve Farnsworth DO ~ Perianesthesia Manager: Signed [facility] 10-24-2024 Discharge summary Note Date/Time October 25, 2024 12:22am [facility] Medical Records Department [address] [place] [address] Emergency Department Summary 10/24/24 MR#: [id number] Acct: [id number] Name: GINA WORTHINGTON Rep #:[id number] : 1935 89 From: Steve Witt PCP: Dr. Amadou Liu MD Status:REG ER Location: ED HPI History of Present Illness Chief Complaint: Chest Pain Informant: patient and family Narrative Narrative: Chest heaviness left side 3 PM while at rest. Lasted a few hours she took 3 nitros with resolution of symptoms. No pain arm neck or back. No diaphoresis. No dyspnea. No dyspnea. History of coronary disease with stenting she states the last time was February of this past year. Also had a valve replacement. She is followed by cardiology Dr. Lopez. Denies cough. She is also on Eliquis she is unclear why. Denies history of any dysrhythmia. Prior Similar Symptoms: Yes CVD Risk Factors: Positive for Hypertension and Hypercholesterolemia; Negative for Diabetes PE Risk Factors: Negative for Recent Travel/Surgery, Recent Immobilization or Prior DVT or PE [facility] Medical History Anemia Back pain GERD (gastroesophageal reflux disease) Obesity Deep vein thrombosis Essential (primary) hypertension Nonrheumatic aortic (valve) stenosis Hyperlipidemia Atherosclerotic heart disease of tribe coronary artery without angina pectoris Home Medications ?Medication ?Instructions ?Recorded ?Last Taken ?Type cholecalciferol (vitamin D3) 125 5,000 unit PO DAILY S UPPLEMENT 12/12/17 11/20/19 History mcg (5,000 unit) capsule coenzyme Q10 200 mg capsule 200 mg PO DAILY SUPPLEMENT 12/12/17 11/20/19 History nitroglycerin 0.4 mg sublingual 0.4 mg sublingual Q5M PRN ANGINA 06/19/20 Unknown Rx tablet #25 tabs famotidine 10 mg tablet (Pepcid AC) 10 mg PO ONCE PRN gerd 12/06/22 Unknown History desoximetasone 0.25 % topical cream 1 applic topical D AILY PRN Fill as 02/09/23 Unknown Rx courtesy until pt obtains new Primary #15 grams apixaban 2.5 mg tablet (Eliquis) 2.5 mg PO BID #180 ta bs 02/23/24 Unknown Rx carvedilol 12.5 mg tablet 12.5 mg PO BID #180 tabs 08/29 Unknown Rx clopidogrel 75 mg tablet 75 mg PO QDAY #90 tabs 03/12 Unknown Rx amlodipine 5 mg tablet (Norvasc) 2.5 mg (1/2 x 5 mg) P O QDAY #30 09/11/24 Unknown Rx tabs valsartan 160 mg tablet 80 mg (1/2 x 160 mg) PO BID #180 09/25/24 Unknown Rx tabs isosorbide mononitrate 60 mg 60 mg PO DAILY #30 tabs 0 10/25/24 Unknown Rx tablet,extended release 24 hr nitroglycerin 0.4 mg sublingual 0.4 mg sublingual Q5M PRN chest 10/25/24 Unknown Rx tablet pain #30 tabs Allergy/AdvReac Type Severity Reaction Status Date / Time azithromycin Allergy Severe Other Verified 10/24/24 20:27 pravastatin AdvReac Severe mylagias Verified 10/24/24 20:27 Family History Other CVA (cerebral vascular accident) [...] Constitutional ED: Denies chills, fever(s) or sweats ENT ENT ED: Denies sore throat Cardiovascular Cardiovascular: Reports chest pain; Denies leg edema, palpitations or racing heartbeat Respiratory/Chest Respiratory/Chest: Denies cough, dyspnea or dyspnea on exertion Gastrointestinal Gastrointestinal: Denies abdominal pain, diarrhea, nausea or vomiting Genitourinary Genitourinary ED: Denies dysuria, hematuria or urinary frequency Musculoskeletal Musculoskeletal: Denies back pain, extremity pain or neck pain Integumentary Denies rash or wounds Neurologic Neurologic: Denies headache(s), paresthesias or weakness EXAM Physical Exam Const Vital Signs: 10/24/24 20:27 10/24/24 21:13 10/24/24 21:13 Temperature 98.3 F Temperature Source Oral Pulse Rate 77 69 Respiratory Rate 14 18 Respiratory Effort Respiratory Pattern Blood Pressure 233/95 H 229/79 H Blood Pressure Mean 141 129 Pulse Ox 98 100 Oxygen Delivery Method Room Air Room Air Room Air 10/24/24 21:13 10/24/24 21:13 10/24/24 22:00 Temperature Temperature Source Pulse Rate 75 Respiratory Rate 17 Respiratory Effort Normal Normal Respiratory Pattern Normal Blood Pressure 208/87 H Blood Pressure Mean 127 Pulse Ox 99 Oxygen Delivery Method Room Air 10/24/24 23:00 10/25/24 00:00 10/25/24 00:10 Temperature 97.8 F Temperature Source Pulse Rate 64 61 61 Respiratory Rate 16 16 16 Respiratory Effort Respiratory Pattern Blood Pressure 206/85 H 203/65 H 203/65 H Blood Pressure Mean 125 111 111 Pulse Ox 100 98 98 Oxygen Delivery Method Room Air Room Air Positive well nourished and well developed General Appearance ED: well developed and NAD HEENT Reports moist mucous membranes normocephalic and atraumatic Eyes General Eye ED: Yes normal appearance of both eyes Neck full ROM Chest Wall Chest: Negative for tenderness Resp normal respiratory effort and normal air movement Effort and Inspection: symmetric chest movement; Negative for respiratory distress Cardio regular rate, regular rhythm and no murmurs Peripheral Pulses: pulses 2+ throughout GI normal to inspection, nondistended, normoactive bowel sounds and non-tender Palpation: Negative for guarding or rebound tenderness present Extremity normal to inspection General Extremety ED: Negative for edema or tenderness General Extremity: Negative for edema Neuro oriented x3 and no sensory deficits noted Sensorium / Orientation: awake and alert Skin no rashes or lesions noted and no wounds Heart Score History: Moderately Suspicious ECG: Normal Age: >/= 65 years Risk Factors: >/= 3 Risk Factors or History of CAD Troponin: </= Normal Limit Score: 5 MDM MDM MDM Narrative Medical decision making narrative: Interventions / MDM: Differential diagnosis: Chest pain, history of coronary disease, accelerated hypertension, chronic anticoagulation Diagnosis considered but do not suspect: Hypertensive emergency however workup negative. Aortic dissection however CT negative. My EKG interpretation: Sinus rate of 72, no ST or T wave changes. Imaging independently reviewed and interpreted by myself: 1 view chest x-ray: Widened mediastinum and also in radiology. CT angiogram chest: with no acute process. External documents reviewed: Cardiology office note last month. On 02/08/2024 patient underwent a diagnostic heart catheterization. Heart catheterization demonstrated left main no disease, LAD torturous calcified with 50% disease in the midsegment after the origin of the large diagonal, circumflex gives off to acouple of very small high OM's followed by 80% stenosis before the OM 3, RCA large dominant tortuous calcified with serial 70 to 80% lesion of the mid segment. Patient underwent stenting of the RCA with 2 stents. On 02/09/2024 patient underwent a TAVR replacement with a 27 mm Khan and avatar trans catheter heart valve. Test considered but not ordered:N/A ED course: Chest heaviness resolved with nitro at home currently symptom-free. Had approximately 3 hours of symptoms. Blood pressure elevated in the ED no headaches no sharp tearing chest pains or concerns for dissection. EKG no acutefindings. Cardiac workup initiated. Status post Plavix at home she is on Eliquis. Chest x-ray widened mediastinum. CT angiogram ordered. Results negative. troponin negative x 2. Remains symptom-free. Blood pressure without intervention manage 203 systolic. Review of records in cardiology office blood pressure 140s to 150s. She has been compliant with her medications. She does have continued coronary disease with LAD calcification 50% OM lesions of 80%. 2355: I spoke with linotype mechanic Dr. Lopez agrees with starting Imdur will start at 60 mg with her elevated blood pressure. Patient states her nitroglycerin sublingual was out of date. I will refill this. She will follow-up with cardiology office. Return precautions. All questions were answered. Re-evaluation: stable Disposition discussed with patient/family/significant other: Patient and family Case discussed with consulting clinician: N/A This note was generated with WhatsApp dictation software. It may contain incorrectwords, spelling, and punctuation that were not noted in checking the note beforesigning. Lab Data Attestation: I reviewed the patient's lab results. Labs: Laboratory Results - last 24 hr 10/24/24 10/24/24 20:50 23:00 WBC 4.5 RBC 3.66 L Hgb 12.0 Hct 35.9 L MCV 98.1 MCH 32.8 H MCHC 33.4 RDW Std Deviation 51.9 H RDW Coeff of Heladio 14.4 Plt Count 203 MPV 11.6 Immature Gran % (Auto) 0.400 Neut % (Auto) 65.6 Lymph % (Auto) 24.4 [place] % (Auto) 7.8 Eos % (Auto) 0.9 Baso % (Auto) 0.9 Absolute Neuts (auto) 3.0 Absolute Lymphs (auto) 1.10 Nucleated RBC % 0 PT 14.6 INR 1.1 Sodium 139 Potassium 4.6 Chloride 103 Carbon Dioxide 24.7 Anion Gap 12 BUN 23 H Creatinine 0.89 Estim Creat Clear Calc 39.13 L Est GFR (MDRD) Non-Af 62 BUN/Creatinine Ratio 26.3 H Glucose 99 Calcium 9.7 Troponin T High Sens 12 Troponin T Hi Sens 2 Hr 13 Radiography Diagnostic Testing: Clinical Impression(s) from Imaging Studies Chest X-Ray 10/24/24 21:14 IMPRESSION: Suspected mediastinal widening. CTA chest may be performed for further evaluation. Reading Location: [facility] Chest CTA 10/24/24 21:45 IMPRESSION: 1. No acute intrathoracic findings. No pulmonary arterial emboli. 2. Cardiomegaly. No thoracic aortic aneurysm or dissection. Moderate atherosclerotic disease. 3. Few small nonobstructive renal stones seen in the upper pole of the right kidney. Reading Location: [facility] Discharge Plan Triage Chief Complaint: Chest Pain Other Complaint: Hypertension ED Provider: Steve Farnsworth Dx/Rx/DC Orders Clinical Impression: Chest pain, History of CAD (coronary artery disease), Chronic anticoagulation, Accelerated hypertension Instructions: ED Chest Pain, Uncertain Cause, ED High Blood Pressure New Begin Tx Prescriptions: New isosorbide mononitrate 60 mg tablet extended release 24 hr 60 mg PO DAILY Qty: 30 0RF nitroglycerin 0.4 mg tablet, sublingual 0.4 mg sublingual Q5M PRN (Reason: chest pain) Qty: 30 0RF Rx Instructions: do not exceed 3 doses per episode No Action nitroglycerin 0.4 mg tablet, sublingual 0.4 mg SL Q5M PRN (Reason: ANGINA) Qty: 25 3RF famotidine [Pepcid AC] 10 mg tablet 10 mg PO ONCE PRN (Reason: gerd) desoximetasone 0.25 % cream 1 applic topical DAILY PRN (Reason: Fill as courtesy until pt obtains new Primary DrNelli ) Qty: 15 1RF cholecalciferol (vitamin D3) 5,000 UNIT capsule 5,000 unit PO DAILY coenzyme Q10 200 MG capsule 200 mg PO DAILY Eliquis 2.5 mg tablet 2.5 mg PO BID Qty: 180 3RF carvedilol 12.5 mg tablet 12.5 mg PO BID Qty: 180 3RF clopidogrel 75 mg tablet 75 mg PO QDAY Qty: 90 3RF amlodipine [Norvasc] 5 mg tablet 2.5 mg PO QDAY Qty: 30 6RF valsartan 160 mg tablet 80 mg PO BID Qty: 180 3RF Primary Care Provider: Amadou Liu Referrals: Amadou Liu MD [Primary Care Provider] - Anali Daniel PA [Med Staff - [facility] Practice Prof] - 1 Week Activity Restrictions/Additional Instructions: Cardiac workup negative. Your CT angiogram chest also negative. Blood pressureelevated in the ED. Discussed with Dr. Lopez, take isosorbide mononitrate as prescribed once daily this will help your blood pressure along with potential keeping symptoms from returning. You were refilled for your sublingual nitro touse as needed. Follow-up with Anali in the office. Print Language: Ecuadorean Disposition Disposition: Home, Self Care What to do if you have Problems For any increased pain, shortness of breath, bleeding, nausea or vomiting, chestpain, or any unexpected problems, contact your Primary Care Provider. Call [facility] ([phone]) or report to the closest Emergency Room. Call 911 if necessary. 10/25/24 0022 <Electronically signed by Steve Witt> Cosigner Signature (if applicable): CC: Dr. Amadou Liu MD; ANDREA Wills ~ Signed [facility] Work Phone: 1(356) 322-550807-11-2025 Evaluation note* Diagnosis Onset Date Resolution Status Admit Date Deep vein thrombosis acute September 14, 2024 8:50am Essential (primary) hypertension chronic September 14, 2024 8:50am History of coronary artery stent placement June 19, 2001 chronic September 14, 2024 8:50am Hyperlipidemia chronic September 14, 2024 8:50am S/P TAVR (transcatheter aortic valve replacement) February 09, 2024 chronic Sep 8:50am [facility] Work Phone: 1(744) 987-514607-11-2025 Evaluation note* Diagnosis Onset Date Resolution Status Admit Date Deep vein thrombosis acute September 14, 2024 8:50am Essential (primary) hypertension chronic September 14, 2024 8:50am History of coronary artery stent placement June 19, 2001 chronic September 14, 2024 8:50am Hyperlipidemia chronic September 14, 2024 8:50am S/P TAVR (transcatheter aortic valve replacement) February 09, 2024 chronic Sep 8:50am Deep vein thrombosis acute Sept 2024 9:16am Essential (primary) hypertension chronic November 14, 2024 9:16am History of coronary artery stent placement June 19, 2001 chronic November 14, 2024 9:16am Hyperlipidemia chronic November 14, 2024 9:16am S/P TAVR (transcatheter aortic valve replacement) February 09, 2024 chronic Sep 2024 9:16am [facility] Work Phone: 1(190) 458-257704-01-2025 Evaluation note* Diagnosis Onset Date Resolution Status Admit Date Deep vein thrombosis acute Apri 2024 11:25am Essential (primary) hypertension chronic June 05, 2024 11:25am History of coronary artery stent placement June 19, 2001 chronic June 05, 2024 11:25am Hyperlipidemia chronic June 05, 2024 11:25am S/P TAVR (transcatheter aortic valve replacement) February 09, 2024 chronic Apr 2024 11:25am Deep vein thrombosis acute Apri l 2024 8:21am Essential (primary) hypertension chronic June 21, 2024 8:21am History of coronary artery stent placement June 19, 2001 chronic June 21 8:21am Hyperlipidemia chronic June 8:21am S/P TAVR (transcatheter aortic valve replacement) February 09, 2024 chronic Apr il 2024 8:21am [facility] Work Phone: 1(714) 805-884904-01-2025 Evaluation note* Diagnosis Onset Date Resolution Status Admit Date Deep vein thrombosis acute Apri l 2024 11:25am Essential (primary) hypertension chronic June 05, 2024 11:25am History of coronary artery stent placement June 19, 2001 chronic June 05, 2024 11:25am Hyperlipidemia chronic June 05, 2024 11:25am S/P TAVR (transcatheter aortic valve replacement) February 09, 2024 chronic Apr 2024 11:25am Deep vein thrombosis acute Apri [...] replacement) February 09, 2024 chronic Sep 8:50am [facility] [employer] Work Phone: 1(773) 734-744012-18-2024 Evaluation note* Diagnosis Onset Date Resolution Status Admit Date Deep vein thrombosis acute Dece mb2023 10:28am Essential (primary) hypertension chronic February 21, 024 10:28am History of coronary artery stent placement June 19, 2001 chronic February 22, 2024 10:28am Hyperlipidemia chronic February 042023 10:28am Nonrheumatic aortic (valve) stenosis chronic February 21, 2 024 10:28am S/P TAVR (transcatheter aortic valve replacement) February 09, 2024 chronic Dec 2023 10:28am Deep vein thrombosis acute Apri l 2024 11:25am Essential (primary) hypertension chronic June 05, 2024 11:25am History of coronary artery stent placement June 19, 2001 chronic June 05, 2024 11:25am Hyperlipidemia chronic June 05, 2024 11:25am S/P TAVR (transcatheter aortic valve replacement) February 09, 2024 chronic Apr 2024 11:25am [facility] Work Phone: 1(461) 616-739311-18-2024 Hospital Discharge instructions Patient Education 01/23/2024 05:46:33 [...] that stimulates the heart. This includes many ubuw-iac-myvnxxs cold and sinus decongestant pills and sprays, as well as diet pills. Check the warnings about high blood pressure on thelabel. Before purchasing any rjvf-cxa-kgepmvp medicines or supplements, always ask the pharmacist [...] on home blood pressure monitoring from the [employer]. Don't smoke or drink coffee [...] of the face Trouble speaking or seeing 1749-9402 [employer]. [address] [place] [address]. All rights reserved. This information is not intended as a substitute for professional medical care. Always follow yourhealthcare professional's instructions. Follow Up Care 01/23/2024 02:30:07 With:LIBORIO SAENZ MD Address: [address] [facility] [address] [facility] [place] [address] [phone] When:2-4 days With:AMADOU LIU MD Address: [address] [facility] [address] [place] [address]- [phone] When:2-4 days [facility] 11-18-2024 Emergency department Discharge summary Discharge Instructions Thank you for allowing [facility] to assist you with your healthcare needs. The following is importantdischarge information regarding your hospital visit. What to Do Next Instructions from Your Care Team No qualifying data available. Post Acute Orders No qualifying data available. You Need to Schedule the Following Appointments Follow Up with LIBORIO SAENZ MD When:Within 2-4 days Where:[address] [facility] [address] [facility] [place] [address]- [phone] Follow Up with AMADOU LIU MD When:Within 2-4 days Where:[address] [place] [address]- [phone] Allergies erythromycin Medications Please ask your primary [...] that stimulates the heart. This includes many nkpi-rrl-gcxlwbf cold and sinus decongestant pills and sprays, as well as diet pills. Check the warnings about high blood pressure on thelabel. Before purchasing any oyry-hce-tzszbvs medicines or supplements, always ask the pharmacist [...] on home blood pressure monitoring from the [employer]. Don't smoke or drink coffee [...] of the face Trouble speaking or seeing 7468-6348 [employer]. [address] [place] [address]. All rights reserved. This information is not intended as a substitute for professional medical care. Always follow yourhealthcare professional's instructions. Additional Information VACCINATE! IT SAVES LIVES! Members of the community who have not yet received the COVID-19 vaccine and would like to receive it can visit one of [facility] vaccine clinics. There are many vaccine clinic locations within the [facility]. For locations and available times, please visit www.gettheshot.coronavirus.[place].gov/. It is important to note that some COVID mobile vaccine clinics are held outdoors and may be canceled in rainy or stormy conditions. To learn more about pediatric vaccinations (ages 5-11), we invite you to visit the [facility] webpage. https://www.[email or web address].org/pages/1476-Brcjp-Ppgouptxayl-Jupkogjseo-Bflon-Myn stions.htmlTo learn more about the COVID-19 vaccine, we invite you to visit the CDC website for a list of frequently asked questions. https://www.cdc.gov/coronavirus/2019-ncov/vaccines/faq.html [facility] Patient Portal Access Instructions: Stay connected with your healthcare team and access your personal medical information anytime with the [facility] [employer] Patient Portal. If you would like a full copy of your medical records please contact the [facility] Medical Records Department Tuesday through Tuesday between 8a.m. and 4:30p.m. Please follow the directions below to access the portal: 1.Access the email account you provided upon registration to the [facility].2.Look for an invitation email from [facility].3.Open the email and access the invitation link: Accept Invitation to [facility]4.Fill in the required loaiza to create your account. Sign into [email or web address].[email or web address] with your username and password that you [...] you will allow to register on the [facility] Patient Portal for access to your information. You can also access the [facility] Patient Portal on the [employer] alfreda. Simply click on Health Records under [employer] and then click on the [facility] logo. HOW TO SAFELY DISPOSE OF PRESCRIPTION [...] Call your local pharmacy or go to [email or web address] to find one close to you.3.Make use of household items: Use cat litter or old coffee grounds to dispose medications if other options arenot available. Mix your drugs with these household products, seal them in an airtight container andthrow it into the garbage. Call [facility]: [phone] to be sure your drugs can be [...] been reviewed and explained to me and I,GINA WORTHINGTON understand my current condition and have read and understand these discharge instructions. I have received a written copy of the plan/instructions. If I have questions, I am aware that I should contact my doctor. Patient/Traffic Personnel Supervisor Signature: Date/Time: Relationship to Patient: Witness Name/Signature: [id number] Note ORIGINAL EXAMINATION: CT OF THE HEAD [...] shift. No abnormal extra-axial fluid collection. The frero-white differentiation is maintained without evidence of an [...] Sign Date: 01/23/2024 4:06:01 AM Ordering Provider: [facility]11-18-2024 Note ORIGINAL EXAMINATION: ONE XRAY VIEW [...] Sign Date: 01/23/2024 3:33:33 AM Ordering Provider: [facility]11-18-2024 NoteSINUS RHYTHM ABNORMAL R-WAVE PROGRESSION, EARLY TRANSITION PROBABLE LEFT VENTRICULAR HYPERTROPHY Electronic Signature: MARIANNE PINEDA 01/23/2024 05:54:09[facility] 11-01-2024 NoteHNO ID: [id number] Author: RC RAMIREZ APRN.SUPERVISOR SEWER SYSTEM Service: ? Author Type: Nurse Practitioner Type: Progress Notes Filed: 01/06/2024 10:42 Note Text: TAVR STRUCTURAL REVIEW FORM Orders placed by: Erik Lucas APRN ([facility]) Records Reviewed: 01/06/2024 Appt request sent: 01/06/2024 Records in [facility] have been reviewed. Severe . Request has been sent to the chief crew scheduler who will arrange an appointment schedule. [...] cath. DX: aortic valve disorder Referring physician: Erki Lucas APRN DAY ONE: Dr. Reyna/Dr. Bosch/Dr. [...] greater, then it should be by an Golf Cart Assembler ONLY (Dr. Arias, Dr. George, Dr. Mcnulty, Dr. Cruz, Dr. Benedict, Dr. Linn, Dr. Peoples,Dr. Loredo, Dr. Lewis, Dr. Lozoya, Dr. Figueroa and Dr. Graham) DAY THREE: Nuclear Medicine- Amyloid SPECT Structural Valve Clinic appointment PFT?s (spirometry, diffusing capacity) Patient is also to be seen by Dr. Richardson/Dr. Limon/Dr. Stephen/Dr. Read/ Dr. Lovell/Dr. Portillo/Dr. Wilkins/Dr. Magana/ Dr. Olivia/ Dr. Orr/Dr. Douglas. Rc Ramirez APRN.[facility]11-01-2024 History of Present illness Narrative* Rc Ramirez APRN.SUPERVISOR SEWER SYSTEM - 01/06/2024 10:14 AM EDT Images from the original note were not included. TAVR STRUCTURAL REVIEW FORM Orders placed by: Erik Lucas APRN ([facility]) Records Reviewed: 01/06/2024 Appt request sent: 01/06/2024 Records in [facility] have been reviewed. Severe . Request has been sent to the chief crew scheduler who will arrange an appointment schedule. [...] greater, then it should be by an Golf Cart Assembler ONLY (Dr. Arias, , Dr. Mcnulty, Dr. [...] Douglas. Rc Ramirez APRN.CNP [facility] Tele[facility] encounter Note * Telephone Encounter - Melissa Friend - 12/26/2023 4:59 PM EDT Images from the original note were not included. Received referral to Dr. George for TAVR, uploaded under scanned documents Echo 12/21/2023 (No Images) CXR 01/23/2023 (No Images) Faxed request for images: [facility]10-21-2024 Miscellaneous Notes* Telephone Encounter - Melissa Friend - 12/26/2023 4:59 PM EDT Images from the original note were not included. Received referral to Dr. George for TAVR, uploaded under scanned documents Echo 12/21/2023 (No Images) CXR 01/23/2023 (No Images) Faxed request for images: [facility] Telephone encounter Note * Telephone Encounter - José Luis Jett - 12/23/2023 8:33 AM EDT RECEIVED CALL FROM: Family member - Name: Maria Victoria PATIENT INFORMATION: Name: Gina Worthington : 1935 (home) Email: [email or web address] Referring Provider: No referring provider defined for this encounter. Phone: N/A Fax: Requested Surgeon: First Available/Unspecified Reason for appointment/diagnosis : Aortic stenosis José Luis Jett December 23, 2023 8:34 AM [facility]10-18-2024 Miscellaneous Notes* Telephone Encounter - José Luis Jett - 12/23/2023 8:33 AM EDT RECEIVED CALL FROM: Family member - Name: Maria Victoria PATIENT INFORMATION: Name: Gina Polanco Dev : 1935 (home) Email: [email or web address] Referring Provider: No referring provider defined for this encounter. Phone: N/A Fax: Requested Surgeon: First Available/Unspecified Reason for appointment/diagnosis : Aortic stenosis José Luis Jett December 23, 2023 8:34 AM [facility] Evaluation note* Diagnosis Onset Date Resolution Status Essential (primary) hypertension chronic History of coronary artery stent placement June 19, 2001 chronic Hyperlipidemia chronic Nonrheumatic aortic (valve) stenosis chronic [facility] Work Phone: Discharge summary Author Mario Cruz [facility] January 23, 2023 10:47am Note Date/Time January 23, 2023 9:36am [facility] Medical Records Department [address] [place] [address] Emergency Department Summary 01/23/23 MR#: [id number] Acct: [id number] Name: WORTHINGTON,GINA Polanco Rep #:[id number] : 1935 87 From: Mario Cruz DO [...] she tries to keep away from these. [facility] Medical History Atherosclerotic heart disease of tribe coronary artery without angina pectoris Deep vein [...] % (Auto) 63.9 Lymph % (Auto) 26.2 [place] % (Auto) 8.1 Eos % (Auto) 0.8 [...] your Primary Care Provider. Call [facility] ([phone]) or report to the closest Emergency Room. Call 911 if necessary. 01/23/23 1047 <Electronically signed by Mario Cruz DO> Cosigner Signature (if applicable): CC: No Primary Care Physician ~ Signed [facility] Work Phone: Evaluation + Plan note Future Appointments Appointment Date:01/26/2024 02:30:00 PM Scheduled Provider:AMRITA CHAVARRIA Location:[facility] Appointment Type:CV CAREER DEVELOPMENT CONSULTANT [facility] Evaluation noteNo assessment information available [facility] Work Phone: Evaluation note* Diagnosis Nonrheumatic aortic valve stenosis- Primary Aortic valve disorders documented in this encounter [facility] course Narrative No data available for this section [facility] Discharge instructions Additional Instructions Albuterol MDI: 2 puffs every 4 hours as needed for cough/wheezing.[facility] Work Phone: Hospital Discharge instructions Additional Instructions Your workup showed no sign of heart damage or kidney damage associated from your high blood pressure this evening. Please continue all of your blood pressure medications as directed by your family doctor and follow-up with them for repeat evaluation. Return to the ER should you have any further [facility] Work Phone: Hospital Discharge instructionsAdditional Instructions Cardiac workup negative. Your CT angiogram chest also negative. Blood pressure elevated in the ED. Discussed with Dr. Lopez, take isosorbide mononitrate as prescribed once daily this will help your blood pressure along with potential keeping symptoms from returning. You were refilled for your sublingual nitro to use as needed. Follow-up with Anali in the office.[facility] Work Phone: Reason for referral (narrative)No reason for referral information availableWProMedica [facility] Work Phone: Summary note* Roxie Hines: PERFORM Event Display: Patient Summary Documents Authored Date: [id number] [facility] Advance Directives Advance Directive Response Recorded Date/ Time Advance Directives No April 13, 2016 3:02am Living Will No December 06 3:42pm Power of Cena No December 06 021 3:42pm Advance Directive Response Recorded Date/ Time Name of Medical Power of Cena MARA LARA March 09, 2022 10:59pm Advance Directives No April 13, 2016 2:02am Living Will No March 09 3 10:59pm Power of Cena Yes March 09 023 10:59pm Advance Directive Response Recorded Date/ Time Advance Directives No April 13, 2016 2:02am Living Will No January 23 023 10:58am Power of Cena No January 23, 2023 10:58am Advance Directive Response Recorded Date/ Time Living Will Yes November 07 024 12:36am Do you have a Healthcare Power of Cena? Yes November 08, 2023 12:36am Advance Directives No April 13, 2016 3:02am Advance Directive Response Recorded Date/ Time Advance Directives No April 13, 2016 3:02am Advance Directive Response Recorded Date/ Time Do you have a Healthcare Power of Cena? No August 23, 2024 12:35am Advance Directives No April 13, 2016 3:02am Advance Directive Response Recorded Date/ Time Do you have a Healthcare Power of Cena? Yes October 24, 2024 9:13pm Do you have a Healthcare Power of Cena? No August 23, 2024 12:35am Advance Directives [...] History of coronary artery stent placeme nt September 14, 2024 8:50am Hyperlipidemia September 14, 2024 8:50 am [...] labile hypertension September 25, 2024 8:34 am Chief Complaint Admit Date Presence of prosthetic heart valve July 052024 9:03am CHEST PAIN August 23, 2024 12:3 1am 3 M FU September 14, 2024 8:50 am labile hypertension September 25, 2024 8:34 am HYPERTENSION October 24, 2024 8: 27pm Reason for Visit Admit Date Deep vein thrombosis September 14, 2024 8:5 0am Essential (primary) hypertension September 142024 8:50am History of coronary artery stent placeme nt September 14, 2024 8:50am Hyperlipidemia September 14, 2024 8:50 am S/P TAVR (transcatheter aortic valve rep lacement) September 14, 2024 8:50am Chief Complaint Admit Date Presence of prosthetic heart valve July 052024 9:03am CHEST PAIN August 23, 2024 12:3 1am 3 M FU September 14, 2024 8:50 am labile hypertension September 25, 2024 8:34 am HYPERTENSION October 24, 2024 8: 27pm S/P H 8/20 CP November 14, 2024 9:16am Reason for Visit Admit Date Deep vein thrombosis September 14, 2024 8:5 0am Essential (primary) hypertension September 142024 8:50am History of coronary artery stent placeme nt September 14, 2024 8:50am Hyperlipidemia September 14, 2024 8:50 am S/P TAVR (transcatheter aortic valve rep lacement) September 14, 2024 8:50am Deep vein thrombosis November 14 9:16am Essential (primary) hypertension Septemb 2024 9:16am History of coronary artery stent placeme nt November 14, 2024 9:16am Hyperlipidemia November 14, 2024 9:16am S/P TAVR (transcatheter aortic valve rep lacement) November 14, 2024 9:16am Chief Complaint Admit Date CHEST PAIN August 23, 2024 12:3 1am 3 M FU September 14, 2024 8:50 am labile hypertension September 25, 2024 8:34 am HYPERTENSION October 24, 2024 8: 27pm S/P [facility] 20 CP November 14, 2024 9:16am E-ORDER November 14, 2024 10:10am Summary Purpose Family History No Family History [...] Provider, Refer ring Provider Active Priyanka Marks CAREER DEVELOPMENT CONSULTANT, CAREER DEVELOPMENT CONSULTANT-C Attending Provider Active Team Status: Active Member Role Status Dates No Primary Care Physician Primary Care Provider Active Dr. Octavio Lopez MD Attending Provider Active Team Status: Active Member Role Status Dates No Primary Care Physician Primary Care Provider Active Priyanka Marks CAREER DEVELOPMENT CONSULTANT, CAREER DEVELOPMENT CONSULTANT-C Attending Provider Active Team Status: Inactive Member Role Status Dates No Primary Care Physician Primary Care Provider Active Dr. Octavio Lopez MD Other Provider Active Priyanka Marks CAREER DEVELOPMENT CONSULTANT, CAREER DEVELOPMENT CONSULTANT-C Attending Provider, Referring Apple moreno Active Team [...] March 12, 2024 End: March 12, 2024 PRECOIUS FERRARI Attending Provider Active St art: March [...] 21, 2024 End: June 21, 2024 Anali MENDEZ, PA Attending Provider Active Start: June 21, 2024 End: June 21, 2024 Team Status: Inactive Member Role Status Hany Liu MD Primary Care Provider Active St art: July 17, 2024 End: July 17, 2024 Anali MENDEZ, PA Attending Provider Active Start: July 17, 2024 End: July 17, 2024 Anali MENDEZ, PA Referring Provider Active Start: July 17, 2024 End: July 17, 2024 Team Status: Active Member Role Status Hany Liu MD Primary Care Provider Active St art: July 17, 2024 Dr. Octavio Lopez MD Attending Provider Active S tart: July 17, 2024 Team Status: Inactive Member Role Status Hayn Liu MD Primary Care Provider Active St [...] June 05, 2024 Anali Daniel PA, PA Referring Provider Active Start: June 05, [...] 17, 2024 End: July 17, 2024 Anali MENDEZ, PA Attending Provider Active Start: July 17, [...] 14, 2024 End: September 14, 2024 Anali Daniel PA PA Attending Provider Active Start: September 14, 2024 End: September 14, 2024 Team Status: Inactive Member Role/Relationship Status Hany Liu MD Primary Care Provider Active St art: September 25, 2024 End: September 25, 2024 Anali Daniel PA, PA Attending Provider Active Start: September 25, 2024 End: September 25, 2024 Anali Daniel PA, PA Referring Provider Active Start: September 25, 2024 End: September 25, 2024 Team Status: Active Member Role/Relationship Status Hany Liu MD Primary Care Provider Active St art: September 25, 2024 Dr. Juan Antonio Alaniz MD Attending Provider Active S tart: September 25, 2024 Team Status: Inactive Member Role/Relationship Status [...] 14, 2024 End: September 14, 2024 Anali MENDEZ, PA Attending Provider Active Start: September 14, 2024 End: September 14, 2024 Team Status: Inactive Member Role/Relationship Status Hany Liu MD Primary Care Provider Active St art: September 25, 2024 End: September 25, 2024 Anali MENDEZ, PA Attending Provider Active Start: September 25, 2024 End: September 25, 2024 Anali MENDEZ, PA Referring Provider Active Start: September 25, 2024 End: September 25, 2024 Team Status: Active Member Role/Relationship Status Hany Liu MD Primary Care Provider Active St art: September 25, 2024 Dr. Juan Antonio Alaniz MD Attending Provider Active S tart: September 25, 2024 Anali MENDEZ, PA Referring Provider Active Start: September 25, 2024 Team Status: Inactive Member Role/Relationship Status Hany Liu MD Primary Care Provider Active St art: October 24, 2024 End: October 25, 2024 Dr. Steve Farnsworth DO Emergency Provider Active Start : October 24, 2024 End: October 25, 2024 Team Status: Inactive Member Role/Relationship Status Hany Liu MD Primary Care Provider Active St art: October 24, 2024 End: October 25, 2024 Dr. Steve Farnsworth DO Attending Provider Active Start : October 24, 2024 End: October 25, 2024 Dr. Steve Farnsworth DO Emergency Provider Active Start : October 24, 2024 End: October 25, 2024 Team Status: Inactive Member Role/Relationship Status Hany Liu MD Primary Care Provider Active St art: November 14, 2024 End: November 14, 2024 Amadou Liu MD Referring Provider Active Start : November 14, 2024 End: November 14, 2024 Anali MENDEZ PA Attending Provider Active Start: November 14, 2024 End: November 14, 2024 Team Status: Active Member Role/Relationship Status Hany Liu MD Primary care physician Active Team Status: Inactive Member Role/Relationship Status Hany Liu MD Primary care physician Active S tart: August 23, 2024 End: August 23, 2024 Dr. Ruiz Luo DO Attending physician Active Start: August 23, 2024 End: August 23, 2024 Dr. Ruiz Luo DO Emergency Department Physician A ctive Start: August 23, 2024 End: August 23, 2024 Team Status: Inactive Member Role/Relationship Status Hany Liu MD Primary care physician Active S tart: September 14, 2024 End: September 14, 2024 Amadou Liu MD Referring Provider Active Start : September 14, 2024 End: September 14, 2024 Anali MENDEZ, PA Attending physician Active Start: September 14, 2024 End: September 14, 2024 Team Status: Inactive Member Role/Relationship Status Hany Liu MD Primary care physician Active S tart: September 25, 2024 End: September 25, 2024 Anali MENDEZ PA Attending physician Active Start: September 25, 2024 End: September 25, 2024 Anali MENDEZ, PA Referring Provider Active Start: September 25, 2024 End: September 25, 2024 Team Status: Active Member Role/Relationship Status Hany Liu MD Primary care physician Active S tart: September 25, 2024 Dr. Juan Antonio Alaniz MD Attending physician Active Start: September 25, 2024 Anali MENDEZ, PA Referring Provider Active Start: September 25, 2024 Team Status: Inactive Member Role/Relationship Status Hany Liu MD Primary care physician Active S tart: October 24, 2024 End: October 25, 2024 Dr. Steve Farnsworth DO Attending physician Active Star t: October 24, 2024 End: October 25, 2024 Dr. Steve Farnsworth DO Emergency Department Physician Active Start: October 24, 2024 End: October 25, 2024 Team Status: Inactive Member Role/Relationship Status Hany Liu MD Primary care physician Active S tart: November 14, 2024 End: November 14, 2024 Amadou Liu MD Referring Provider Active Start : November 14, 2024 End: November 14, 2024 Anali MENDEZ, PA Attending physician Active Start: November 14, 2024 End: November 14, 2024 Team Status: Inactive Member Role/Relationship Status Hany Liu MD Primary care physician Active S tart: November 14, 2024 End: November 14, 2024 ANDREA Yates Attending physician Active Start: November 14, 2024 End: November 14, 2024 ANDREA Yates Referring Provider Active Start: November 14, 2024 End: November 14, 2024 INFORMATION SOURCE (unrecogn ized section and content) DATE CREATED AUTHOR 03/05/2023 [facility] DATE CREATED AUTHOR AUTHOR'S ORGANIZ ATION 12/25/2023 [facility] DATE CREATED AUTHOR AUTHOR'S ORGANIZ ATION 01/11/2024 [facility] DATE CREATED AUTHOR AUTHOR'S ORGANIZ ATION 02/20/2024 [facility] DATE CREATED AUTHOR AUTHOR'S ORGANIZ ATION 11/28/2024 [facility] Source Comments (unrecognize d section and content) In the event this informatio n is protected by the Federal Confidentiality of Alcohol and Drug Abuse Patient Records regulations: The Federal rules restrict any use of the information to criminally investigate or prosecute any alcohol or drug abuse patient.[facility] the event this information is protected by the Federal Confidentiality of Alcohol and Drug Abuse Patient Records regulations: The Federal rules restrict any use of the information to criminally investigate or prosecute any alcohol or drug abuse patient.[facility] the event this information is protected by the Federal Confidentiality of Alcohol and Drug Abuse Patient Records regulations: The Federal rules restrict any use of the information to criminally investigate or prosecute any alcohol or drug abuse patient.[facility] Reason for Visit (unrecogniz ed section and [...] BE BASED ON THE PRIMARY CLINICAL RECORDS. [facility] provides no warranty or guarantee of the accuracy or completeness of information in this document.
[2025-01-01 19:15] LABS: Hematocrit 36.5 % (37-47); Hemoglobin 12.2 g/dL (12.0-15.0); Immature Granulocytes Count 0.020 X10^3/uL (0.0-0.0); Mean Corp Hgb Conc 33.4 g/dL (32-36); Mean Corpuscular Volume 99.2 fL (81-99); Mean Platelet Vol. 11.7 fl (6.2-12.0); NRBC Flagged by Analyzer 0 % (0-5); Platelet Count 204 K/mm3 (150-450); RBC Distribution Width CV 14.4 % (11.6-14.6); RBC Distribution Width SD 52.3 fl (35.1-43.9); Red Blood Count 3.68 M/mm3 (4.2-5.4); White Blood Count 4.7 K/mm3 (4.4-11.0)
--- NOTE | 2025-01-01 19:20 | CT_ITS ---
PROCEDURE: BRAIN/HEAD WITHOUT CONTRAST 01/01/2025 REASON FOR EXAM: HYPERTENSION TECHNIQUE: Procedure Code: CTBR Modality: CT Procedure: BRAIN/HEAD WITHOUT CONTRAST Coronal and Sagittal reconstruction series were provided. One or more dose reduction techniques were used (e.g., Automated exposure control, adjustment of the mA and/or kV according to patient size, use of iterative reconstruction technique. COMPARISON: 11/08/2023. FINDINGS: Moderate global parenchymal atrophy. Periventricular white matter hypodensity likely representing [id number]-es-oqbent chronic microvascular ischemia. No evidence of acute hemorrhage or infarction. No extra-axial blood or fluid collections. The paranasal sinuses and mastoid air cells are clear. The calvarial vault and skull base are intact. CT/Brain/Head without Contrast IMPRESSION: No acute intracranial abnormality. Reading Location: [id number]
[2025-01-01 19:23] LABS: Mucous, Urine 0 SEEN /hpf (<or=2+); Red Blood Cells-Urine 0 SEEN /hpf (0-5); Squamous Epithelial Cells - UA 0 SEEN /hpf (5-10)
[2025-01-01 19:25] LABS: Color, Urine Straw (Yellow); Glucose, Dipstick Normal (Normal); Ketone-Dipstick Negative (Negative); Leukocyte Esterase-Dipstick Negative /ul (Negative); Nitrite-Dipstick Negative (Negative); Occult Blood-Urine Negative /ul (Negative); Protein-Dipstick Negative (Negative); Specific Gravity, Urine 1.005 (1.002-1.030); Urine Bilirubin Dipstick Negative (Negative)
[2025-01-01 19:40] LABS: Troponin T High Sensitivity 12 ng/L (<=14)
[2025-01-01 19:47] LABS: Anion Gap 11 (5-15); BUN 19 mg/dL (4-19); BUN/Creat Ratio 19.4 RATIO (10-20); Calcium,Total 9.3 mg/dL (7.6-11.0); Carbon Dioxide 23.7 mmol/L (21.0-32.0); Chloride 102 mmol/L (98-108); Estimated Creatinine Clearance 36.60 ml/min (50-250); Glucose 128 mg/dL (70-99); Potassium 4.0 mmol/L (3.3-5.1)
--- NOTE | 2025-01-01 20:15 | CM.ED ---
Social Work SW met with patient and patients daughter who confirmed that patient had a HPOA completed. Patient and daughter encouraged to bring copy to [facility] when able. No further needs at this time. Sarika Lerner, COFFEE HOST, SILVER SERVICE WAITER
--- NOTE | 2025-01-01 21:05 | HP.PCM.HOS_ITS ---
HPI - General General Date of Admission: 01/01/25 Date of Service: 01/01/25 Chief Complaint: Elevated BP. 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 per GFR trending who presents to the [facility] ED on 01/01/2025 with history of persistent elevated blood pressures throughout the day however she does report that several months prior her blood pressures had been low in the morning therefore her blood pressure medications had been altered and decreased with dizziness intermittently and occasional chest tightness at home however this has been ongoing and is not isolated on day of presentation with no headache or specific chest pain but given ongoing elevation prompted patient to self administer 3 nitroglycerin lowering her blood pressure to 180 however it again returned to 200 prompting daughter to bring her in for evaluation. From discussion with patient it appears she may not be taking her isosorbide and only taking it as needed. Workup in the ED included T98.6, heart rate 89, BP initially 224/117, respiratory rate 16, 99% on room air with BP decreasing transiently to 167/83, most recent repeat vitals heart rate with 83, BP 164/92, respiratory rate 18, 100% on room air, 98% temperature, CBC with WBC 4.7, hemoglobin 12.2, MCV 99.2, platelet 2 4 without marked shift, BMP with BUN/creatinine 19/0.96, GFR 56, glucose 128, troponin 12, urinalysis unremarkable, chest x-ray with no acute cardiopulmonary findings, CT brain with no acute intracranial findings, EKG with sinus rhythm with PVCs with no acute evidence of ischemia with repeat EKG performed again with similar findings with no acute concerns in the ED patient administered 20 mg IV hydralazine x 2 doses most recently 2035. [facility] Medical History Non-smoker Anemia Back pain GERD (gastroesophageal reflux disease) Obesity Deep vein thrombosis Essential (primary) hypertension Nonrheumatic aortic (valve) stenosis Hyperlipidemia Atherosclerotic heart disease of [place] coronary artery without angina pectoris Home Medications ?Medication ?Instructions ?Recorded ?Last Taken ?Type cholecalciferol (vitamin D3) 125 5,000 unit PO DAILY S UPPLEMENT 12/12/17 11/20/19 History mcg (5,000 unit) capsule famotidine 10 mg tablet (Pepcid AC) 10 mg PO ONCE PRN gerd 12/06/22 01/01/25 History desoximetasone 0.25 % topical cream 1 applic topical D AILY PRN Fill as 02/09/23 Unknown Rx courtesy until pt obtains new Primary DrNelli #15 grams apixaban 2.5 mg tablet (Eliquis) 2.5 mg PO BID #180 ta bs 02/23/24 Unknown Rx carvedilol 12.5 mg tablet 12.5 mg PO BID #180 tabs 08/29 Unknown Rx clopidogrel 75 mg tablet 75 mg PO QDAY #90 tabs 03/12 Unknown Rx valsartan 160 mg tablet 80 mg (1/2 x 160 mg) PO BID #180 09/25/24 Unknown Rx tabs nitroglycerin 0.4 mg sublingual 0.4 mg sublingual Q5M PRN chest 10/25/24 Unknown Rx tablet pain #30 tabs rosuvastatin 5 mg tablet (Crestor) 5 mg PO DAILY #1 TA B 11/14/24 Unknown Rx isosorbide mononitrate 60 mg 60 mg PO DAILY 01/01/25 U nknown History tablet,extended release 24 hr Allergy/AdvReac Type Severity Reaction Status Date / Time azithromycin Allergy Severe Other Verified 01/01/25 18:35 pravastatin AdvReac Severe mylagias Verified 01/01/25 18:35 Family History Mother CVA (cerebral vascular accident) Father CVA (cerebral vascular accident) Surgical History 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) Hx of cataract surgery History of left heart catheterization (07/26/13) History of coronary artery stent placement (06/19/01) Social History household members: none Smoking Status: Never smoker alcohol intake: current alcohol intake frequency: other substance use type: does not use caffeine: No ROS ROS Narrative Admission Review of Systems: CONSTITUTIONAL: No weight loss, fever, chills, + weakness or fatigue. HEENT: Eyes: No visual loss, blurred vision, double vision or yellow sclerae. Ears, Nose, Throat: No hearing loss, sneezing, congestion, runny nose or sore throat. SKIN: No rash or itching, lesions, wounds. CARDIOVASCULAR: + Intermittent chest tightness, dizziness. No chest pain, chest pressure or chest discomfort, palpitations, edema, orthopnea, syncopal events. RESPIRATORY: No shortness of breath, cough or sputum, wheezing, hemoptysis. GASTROINTESTINAL: No anorexia, nausea, vomiting or diarrhea, abdominal pain, melena, BRBPR. GENITOURINARY: No dysuria, frequency, urgency or retention. NEUROLOGICAL: + Intermittent dizziness. No headache, syncope, paralysis, ataxia, numbness or tingling in the extremities, focal weakness, change in bowel or bladder control, seizure. MUSCULOSKELETAL: + muscle, back pain, joint pain or stiffness. HEMATOLOGIC: + Chronic anemia, easy bleeding/bruising. LYMPHATICS: No enlarged nodes. No history of splenectomy. PSYCHIATRIC: No history of depression or anxiety. ENDOCRINOLOGIC: No reports of sweating, cold or heat intolerance. No polyuria or polydipsia. ALLERGIES: No history of asthma, hives, eczema or rhinitis. Vital Signs Vital Signs Vital Signs: 01/01/25 18:32 01/01/25 19:32 01/01/25 20:00 Temperature 98.6 F Temperature Source Oral Pulse Rate 89 91 100 Respiratory Rate 16 18 18 Blood Pressure 224/117 H 167/83 H 199/97 H Blood Pressure Mean 152 111 131 Pulse Ox 99 100 100 Oxygen Delivery Method Room Air Room Air Room Air 01/01/25 20:45 01/01/25 21:00 Temperature 98 F Temperature Source Pulse Rate 83 83 Respiratory Rate 18 16 Blood Pressure 164/92 H 185/86 H Blood Pressure Mean 116 119 Pulse Ox 100 99 Oxygen Delivery Method Room Air Weight Weight: 156 lb Body Mass Index (BMI) 28.5 Physical Exam Narrative Physical Examination: General: Awake, alert, oriented x 3 and cooperative, seated upright in the ED bed, denies any chest tightness, pain or dizziness at this time, BP is improved, mildly hard of hearing. Skin: Normal color, normal turgor, no icterus, no cyanosis except occasional stage ecchymoses, abrasion. HEENT: AT/NC, EOMI, PERRLA, MMM, no carotid bruits or JVD noted. Lungs: Mildly diminished, greater bases, appropriate effort, no appreciated rales, ronchi or wheezing. Heart: Regular rate and rhythm; no gallop, rub audible, status post previous TAVR. Abdomen: Soft, NTTP, ND, mildly hyperactive BS, no HSM. Extremities: No cyanosis, no clubbing, no significant distal edema noted. Neurological: Patient awake, alert, oriented as noted, mildly hard of hearing, cognitive function intact; pupils equally reactive to light and accommodation, cranial nerves grossly normal, moving all 4 extremities, no focal deficits, strength moderately globally decreased Psychiatric: Affect appears mildly flat, fatigued, no acute evidence of depressive or anxiety feelings. Results Lab / Micro Data 01/01/25 18:44 01/01/25 18:44 Labs: Laboratory Results - last 24 hr 01/01/25 18:44: WBC 4.7, RBC 3.68 L, Hgb 12.2, Hct 36.5 L, MCV 99.2 H, MCH 33.2 H, MCHC 33.4, RDW Std Deviation 52.3 H, RDW Coeff of Heladio 14.4, Plt Count 204, MPV 11.7, Immature Gran % (Auto) 0.400, Neut % (Auto) 52.7, Lymph % (Auto) 34.7, Josephine % (Auto) 9.6, Eos % (Auto) 1.7, Baso % (Auto) 0.9, Absolute Neuts (auto) 2.5, Absolute Lymphs (auto) 1.62, Nucleated RBC % 0, Sodium 136, Potassium 4.0, Chloride 102, Carbon Dioxide 23.7, Anion Gap 11, BUN 19, Creatinine 0.96, Estim Creat Clear Calc 36.60 L, Est GFR (MDRD) Non-Af 56 L, BUN/Creatinine Ratio 19.4, Glucose 128 H, Calcium 9.3, Troponin T High Sens 12 01/01/25 19:00: Urine Color Straw, Urine Clarity Clear, Urine pH 7.0, Ur Specific Hammond 1.005, Urine Protein Negative, Urine Glucose (UA) Normal, Urine Ketones Negative, Urine Occult Blood Negative, Urine Nitrite Negative, Urine Bilirubin Negative, Urine Urobilinogen Normal, Ur Leukocyte Esterase Negative, Urine RBC 0 SEEN, Urine WBC 0 SEEN, Ur Squamous Epith Cells 0 SEEN, Urine Bacteria 0 SEEN, Urine Mucus 0 SEEN Imaging Radiology Impression Chest X-Ray 01/01/25 18:53 IMPRESSION: No Acute Findings. Reading Location: [facility] Brain CT 01/01/25 19:20 IMPRESSION: No acute intracranial abnormality. 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 per GFR trending who presents to the [facility] ED on 01/01/2025 with history of persistent elevated blood pressures throughout the day however she does report that several months prior her blood pressures had been low in the morning therefore her blood pressure medications had been altered and decreased with dizziness intermittently and occasional chest tightness at home however this has been ongoing and is not isolated on day of presentation with no headache or specific chest pain but given ongoing elevation prompted patient to self administer 3 nitroglycerin lowering her blood pressure to 180 however it again returned to 200 prompting daughter to bring her in for evaluation. #1. Hypertensive urgency with reported intermittent chest tightness, dizziness: Will admit to PCU, place on a monitored bed to assure no acute myocardial infarction with serial cardiac enzymes and EKGs as needed however already had 2 in the ED of note. Magnesium level requested. FLP in AM. Recent echocardiogram noted 07/18/2024. Recent 09/25/2024 renal artery duplex with bilateral renal artery patent with normal velocities and no evidence of any stenosis of note in addition to right and left renal veins patent and right and left kidneys of normal size. From most recent cardiology note 09/14/2024 patient with labile blood pressures which was the reason for obtaining the renal ultrasound with noted elevated blood pressures primarily in the evenings. Given patient improvement with hydralazine will add oral hydralazine scheduled at this time and have breakthrough as needed IV hydralazine. Will add back inpatient isosorbide but again may need to alter regimen further if her blood pressure decreases. As long as blood pressures are improved and patient clinically improves then would plan discharge to home 01/02/25 with altered regimen; however, if concerns ACS arise low threshold to stress. ASA, NG. #2. Chronic Kidney Disease Stage II versus stage III unclear subtype or GFR trending, has vacillated: Admission BUN/Cr 19/0.96, GFR currently 56 but has vacillated between stage II and stage III, baseline renal function primarily 0.8-1.1, repeat BMP in AM. #3. Valvular heart disease: Status post TAVR 02/2024, most recent noted echocardiogram 07/18/2024 with normal LV size, moderate concentric LVH, LVEF 60%, evidence of bioprosthetic AV, mean aortic valve gradient 6 mmHg, LA severely enlarged, PASP 40 mmHg. #4. Hyperlipidemia: Continue home statin regimen. AM FLP. #5. CAD: Status post remote PCI right coronary artery, will continue patient Plavix, Eliquis, Coreg, valsartan, isosorbide with adjustments as noted above given presentation. #6. History DVT: Status post previous IVC filter of note, Will continue patient home apixaban regimen. #7. GERD: Will continue patient home famotidine regimen. #8. DVT prophylaxis: Will continue patient home apixaban regimen. #9. CODE status: Patient GABBI is her daughter and living will is currently in place. Discussed CODE status at length including difference between FULL code, DNR-CCA and DNR-CC status. Following discussions about the differences in these status, requested following several examples DNR-CCA, no intubation. Daughter who is present but not healthcare power of personal injury attorney did ask and clarify with her as well she came to the same status. Advanced Care Planning Face to Face Time: 16 minutes. Charges/Coding Visit Charges Inpatient E&M: 51301 Init Hosp L2 Procedures Hospitalists Procedures: 01313 Advncd Care Plan 30 Min
[2025-01-01 21:09] LABS: Troponin T High Sens 2 HR 12 ng/L (<=14)
[2025-01-01 21:41] LABS: Magnesium 2.1 mg/dL (1.5-2.2)
--- OUTSIDE RECORDS SUMMARY | 2025-01-01 21:49 | XMS RPT_ITS | CCD ---
Author Organization [facility] Care Team Providers Care Land Agent Name Role Phone [place] Adamsamol Mitchell Unavailable [...] Attending Provider VEGA LANG Attending Provider [phone] VEGA LANG Referring Provider Anali Ware Referring [...] Unavailable Calos, Chalon Primary Care Unavailable Jessica, [place] Referring Unavailable Vasquez Blake Consulting Unavailable VERGHESE, JOEL Referring Unavailable VERGHESE, JOEL Attending Unavailable Calos, Chalon Primary Care Unavailable Calos, Chalon Referring Unavailable Calos, Chalon Primary Care Unavailable Anali Ware Attending Unavail able Juan Antonio Alaniz Attending Unavailable Calos, Chalon Primary Care Unavailable Anali Ware Referring Unavail able Jessica, [place] Attending Unavailable Jessica, Octavio Referring Unavailable Calos, Chalon Primary Care Unavailable Jessica, Octavio Attending Unavailable Calos, Chalon Primary Care Unavailable Jessica, [place] Attending Unavailable Calos, Chalon Primary Care Unavailable [...] Care Unavailable Calos, Chalon Referring Unavailable Roof METAL FABRICATOR, Erik Carlos Attending Unavailable Calos, Chalon Primary [...] Physician Dr. Steve Farnsworth DO Attending Physician [phone] Steve Farnsworth DO Emergency Department Physician Allergies Allergy Classification Reported Allergen(s) Allergy Type Date of Onset Reaction(s) Facility (20 sources) azithromycin; Translations: [AZITHROMYCIN] drug allergy 5 Other: See Comments, Unknown [employer] Work Phone: Comment on above: per pt impairs kidne y function and she was unable to walk for 1 week (4 sources) NKDA drug allergy 3 [employer] Work Phone: (12 sources) [facility] Isosorbide; Translations: [ISOSORBIDE MONONITRATE] Drug Allergy 5 Intolerance [facility] Work Phone: (1 source) Erythromycin; Translations: [erythromycin] Drug Allergy [facility] (1 source) Pravastatin Drug Allergy 5 [facility] Repository Medications Current Medications Medication Drug [...] One tablet by mouth daily ATORVASTATIN CALCIUM [id number] Octavio Lopez MD carvedilol 12.5 mg oral [...] 1 tablet by mouth daily CLOPIDOGREL BISULFATE [id number] Anali Daniel PA-C desoximetasone 2.5 mg/ml topical [...] Active Start: 08-26-2014 take 1 capsule by [facility] once daily diltiazem CD (CARDIZEM CD, CARTIA [...] by mouth every other day ROSUVASTATIN CALCIUM [id number] Nicole Vaughan ubidecarenone 200 mg oral ca [...] TABS One tablet by mouth daily ASPIRIN [id number] Nicole Vaughan Start: 11-11-2010 take 1 tablet by tomasa th once daily ASPIRIN 81 MG TABS One tablet by mouth daily ASPIRIN [id number] Nicole Vaughan Start: 11-11-2010 take 1 tablet by tomasa th once daily ASPIRIN EC 81 MG TBEC One tablet by mouth daily ASPIRIN [id number] Marsha Auguste, MICHAEL cinnamon bark 500 mg [...] daily today, tomorr and Tuesday ENOXAPARIN SODIUM [id number] Ozzie Vasquez MD Start: 07-23-2013 LOVENOX 80 MG/ 0.8ML SOLN inject 0.8 mg (1 syringe) sc twice daily today, tomorr and Tuesday ENOXAPARIN SODIUM [id number] Ozzie Vasquez MD Start: 07-23-2013 End: 08-02-2013 LOVENOX 80 MG/0.8ML SOLN inj ect 0.8 mg (1 syringe) sc twice daily today, tomorr and Tuesday ENOXAPARIN SODIUM [id number] Anali Daniel PA-C ezetimibe 10 mg oral [...] by mouth once daily IMDUR 30 MG [id number] One tablet by mouth daily ISOSORBIDE MONONITRATE [id number] Octavio Lopez MD Start: 04-11-2014 End: 12-04-2014 take 1 tablet by mouth once daily IMDUR 30 MG [id number] B One tablet by mouth daily ISOSORBIDE MONONITRATE [id number] Octavio Lopez MD Start: 04-11-2014 take 1 tablet by mouth once da wilfrido IMDUR 30 MG [id number] One tablet by mouth daily ISOSORBIDE MONONITRATE [id number] Octavio Lopez MD lisinopril 10 mg oral [...] TABS One tablet by mouth daily LISINOPRIL [id number] Octavio Lopez MD Start: 07-20-2013 take 0.5 tablet by m outh once daily LISINOPRIL 10 MG TABS 1/2 tablet by mouth daily LISINOPRIL [id number] Shirley Jewell RN Start: 07-20-2013 LISINOPRIL 20 MG TABS one tablet in the evening LISINOPRIL [id number] Octavio Lopez MD Start: 11-11-2010 End: 02-21-2012 take 1 tablet by mouth once daily LISINOPRIL 10 MG TABS One tablet by mouth daily LISINOPRIL [id number] Don Elliott MD 24 hr metoprolol succinate 50 mg extended release oral tablet (10 sources) beta-Adrenergic Brandon Start: 07-20-2013 End: 08-01-2013 take 1 tablet by mouth once daily TOPROL XL 50 MG [id number] One tablet by mouth daily METOPROLOL SUCCINATE [id number] Octavio Lopez MD Start: 07-20-2013 End: 08-01-2013 take 1 tablet by mouth once daily TOPROL XL 50 MG [id number] One tablet by mouth daily METOPROLOL SUCCINATE [id number] Shirley Jewell RN Start: 07-20-2013 take 1 tablet by tomasa th once daily TOPROL XL 50 MG [id number] One tablet by mouth daily METOPROLOL SUCCINATE [id number] Octavio Lopez MD Multivitamin tablet (9 sources) [...] 5 min up to 3 X NITROGLYCERIN [id number] Octavio Lopez MD Start: 11-11-2010 NITROSTAT 0.4 MG SUBL 1 tablet under tongue every 5 min up to 3 X NITROGLYCERIN [id number] Octavio Lopez MD pravastatin sodium 40 mg [...] heart cath)managed by Dr. Crooks WARFARIN SODIUM [id number] Shirley Jewell RN Start: 06-12-2013 End: 01-12-2021 [...] TABS managed b romel Crooks WARFARIN SODIUM [id number] Octavio Lopez MD Problems Active Problems Problem Classification Problem Date Documented Da te Episodic/Chronic Coronary atherosclerosis and other heart disease (20 sources) Coronary arteriosclerosis; Translations: [Atherosclerotic heart disease of [place] coronary artery without angina pectoris] Onset: 11-11-2010 [...] stenosis] Onset: 02-09-2024 Chronic Comment on above: [facility]. 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) use of anticoagulants] 10-25-2024 Episodic Other [...] (3 sources) Long-term drug therapy; Translations: [Other clinical law professor (current) drug therapy] Onset: 11-11-2010 11-11-2010 Viral infection (12 sources) Disease caused by 2019-nCoV; Translations: [COVID-19] 08-26-2019 Episodic Past or Other Problems Problem Classification Problem Date Documented Da te Episodic/Chronic Other aftercare (2 sources) Other intermediate (current) drug therapy; Translations: [Other clinical law professor (current) drug therapy] Onset: 11-11-2010 11-11-2010 Episodic [...] 11-14-2024 Anion gap [Moles/Vol] 9 mmol/L 07-19 [facility] BUN/creatinine ratioOrdered By: Anali Daniel on 11-14-2024 Urea nitrogen/Creatinine [Mass ratio] 20.3 mg/mg High 12-24 [facility] Bilirubin, totalOrdered By: Anali Daniel on 11-14-2024 Bilirubin [Mass/Vol] 0.45 mg/dL 0.00-1.30 [facility] Calculated very low density lipoprotein (VLDL) cholesterol measurementOrdered By: Anali Daniel on 11-14-2024 Calculated very low density lipoprotein (VLDL) cholesterol measurement 28 mg/dL 5-40 [facility] Carbon dioxide, total [Moles /volume] in Central venous bloodOrdered By: Anali Daniel on 11-14-2024 CO2 [Moles/Vol] 24.4 mmol/L 21.0-32.0 [facility] Cardiology Visit Reporton Cardiology Visit Report [facility] [address] [place] [address] OFFICE VISIT Date of Service: 11/14/24 MR#: [id number] Acct: [id number] Name: GINA WORTHINGTON Rep #: [id number] : 1935 Provider: ANDREA Howard Age/Sex: 89/F Location: [facility] Status: Signed HPI HPI History of Present [...] locally and wish to be referred to [facility] for further evaluation. Due to wait time, she contacted [facility] team and scheduled an appointment. She has completed chest CTA. She was referred to their valve team. She is established with the cardiothoracic department at [facility] on 01/31/2024. On 02/08/2024 patient underwent a [...] Pulse Source Monitor Intake Visit Reasons: S/P [facility] 10/24 [employer] Required: No Accompanied by: Self Is patient [...] Medical History Anemia Atherosclerotic heart disease of [place] coronary artery without angina pectoris Back pain Deep vein thrombosis Essential (primary) hypertension GERD (gastroesophageal reflux disease) Hyperlipidemia Nonrheumatic aortic (valve) stenosis Obesity Surgical History History of coronary artery stent placement (06/19/01) History of left heart catheteriza (more content not included)... Normal [facility] Chloride assayOrdered By: Jessica Daniel on 11-14-2024 Chloride [Moles/Vol] 104 mmol/L 98-108 [facility] Comprehensive Metabolic Prof ilon 11-14-2024 Albumin [Mass/Vol] 3.9 g/dL Normal 3.4-4.8 [facility] Comment on above: Performed By: #### L 100.0600, L500.4050, L500.4100 #### [facility] [address] [place], [address] Albumin/Globulin [Mass ratio] 1.4 {ratio} Normal 0.9-2.4 [facility] Comment on above: Performed By: #### L 100.0600, L500.4050, L500.4100 #### [facility] [address] [place], [address] ALK PHOS 52 U/L Normal 35-104 [facility] Comment on above: Performed By: #### L 100.0600, L500.4050, L500.4100 #### [facility] [address] [place], [address] ALT [Catalytic activity/Vol] 10 U/L Normal <=34 [facility] Comment on above: Performed By: #### L 100.0600, L500.4050, L500.4100 #### [facility] [address] [place], [address] AST [Catalytic activity/Vol] 26 U/L Normal <=31 [facility] Comment on above: Performed By: #### L 100.0600, L500.4050, L500.4100 #### [facility] [address] [place], [address] Bilirubin [Mass/Vol] 0.45 mg/dL Normal 0.00-1.30 [facility] Comment on above: Performed By: #### L 100.0600, L500.4050, L500.4100 #### [facility] [address] [place], [address] BUN/CRE 20.3 RATIO High 10-20 [facility] Comment on above: Performed By: #### L 100.0600, L500.4050, L500.4100 #### [facility] [address] [place], [address] Calcium [Mass/Vol] 9.4 mg/dL Normal 7.6-11.0 [facility] Comment on above: Performed By: #### L 100.0600, L500.4050, L500.4100 #### [facility] [address] [place], [address] Chloride [Moles/Vol] 104 mmol/L Normal 98-108 [facility] Comment on above: Performed By: #### L 100.0600, L500.4050, L500.4100 #### [facility] [address] [place], [address] CO2 [Moles/Vol] 24.4 mmol/L Normal 21.0-32.0 [facility] Comment on above: Performed By: #### L 100.0600, L500.4050, L500.4100 #### [facility] [address] [place], [address] Creatinine [Mass/Vol] 1.17 mg/dL Normal 0.70-1.20 [facility] Comment on above: Performed By: #### L 100.0600, L500.4050, L500.4100 #### [facility] [address] [place], [address] GAP 9 Normal 5-15 [facility] Comment on above: Performed By: #### L 100.0600, L500.4050, L500.4100 #### [facility] [address] [place], [address] GFR/1.73 sq M.predicted among non-blacks MDRD (S/P/Bld) [Vol rate/Area] 45 mL/min/{1.73_m2} Low >60 [facility] Comment on above: Result Comment: mL/m in/1.73m2 CKD-EPI Creatinine Equation (2020) Performed By: #### L 100.0600, L500.4050, L500.4100 #### [facility] [address] [place], [address] Globulin (S) [Mass/Vol] 2.9 g/dL Normal 2.2-4.2 [facility] Comment on above: Performed By: #### L 100.0600, L500.4050, L500.4100 #### [facility] [address] [place], [address] Glucose [Mass/Vol] 90 mg/dL Normal 70-99 [facility] Comment on above: Performed By: #### L 100.0600, L500.4050, L500.4100 #### [facility] [address] [place], [address] Potassium [Moles/Vol] 4.6 mmol/L Normal 3.3-5.1 [facility] Comment on above: Performed By: #### L 100.0600, L500.4050, L500.4100 #### [facility] [address] [place], [address] Sodium [Moles/Vol] 137 mmol/L Normal 133-145 [facility] Comment on above: Performed By: #### L 100.0600, L500.4050, L500.4100 #### [facility] [address] [place], [address] T PROT 6.8 g/dL Normal 5.9-8.4 [facility] Comment on above: Performed By: #### L 100.0600, L500.4050, L500.4100 #### [facility] [address] [place], [address] Urea nitrogen [Mass/Vol] 24 mg/dL High 4-19 [facility] Comment on above: Performed By: #### L 100.0600, L500.4050, L500.4100 #### [facility] [address] [place], [address] Glomerular filtration rate ( GFR) estimation/1.73 sq m using serum, plasma, or whole bOrdered By: Anali Daniel on 11-14-2024 GFR/1.73 sq M.predicted among non-blacks MDRD (S/P/Bld) [Vol rate/Area] 45 mL/min/{1.73_m2} Low >60 [facility] Comment on above: mL/min/1.73m2 CKD-EP I Creatinine Equation (2020) HH, Hemoglobin AND Hematocri ton 11-14-2024 Hematocrit (Bld) [Volume fraction] 35.5 % Low 37-47 [facility] Comment on above: Performed By: #### L 100.0600, L500.4050, L500.4100 #### [facility] [address] [place], [address] Hemoglobin (Bld) [Mass/Vol] 11.7 g/dL Low 12.0-15.0 [facility] Comment on above: Performed By: #### L 100.0600, L500.4050, L500.4100 #### [facility] [address] [place], [address] Hematocrit Auto (Bld) [Volum e fraction]Ordered By: Anali Daniel on 11-14-2024 Hematocrit (Bld) [Volume fraction] 35.5 % Low 37-47 [facility] Hemoglobin measurementOrdere d By: Anali Daniel on 11-14-2024 Hemoglobin (Bld) [Mass/Vol] 11.7 g/dL Low 12.0-15.0 [facility] LDL calc ser/plasOrdered By: Anali Daniel on 11-14-2024 Cholesterol in LDL [Mass/Vol] 236 mg/dL [facility] Comment on above: Bzrifymbru=971-339 m g/dL & Higher Uydd=136 mg/dL or greaterFriedwald Equation for LDL-C Laboratory - Chemistry and C hemistry - challengeOrdered By: Anali Daniel on 11-14-2024 AST [Catalytic activity/Vol] 26 U/L <32 [facility] Lipid Profileon 11-14-2024 CHOL:HDL 5.36 Normal [facility] Comment on above: Performed By: #### L 100.0600, L500.4050, L500.4100 #### [facility] [address] [place], [address] Cholesterol [Mass/Vol] 324 mg/dL High <=200 [facility] Comment on above: Result Comment: Chol esterol level, Desirable <200 mg/dL Borderline high cholesterol 200-239 mg/dL High cholesterol >=240 mg/dL Recommendations of the NCEP Adult Treatment Panel for the following risk-cutoff thresholds for the [place] population. Performed By: #### L 100.0600, L500.4050, L500.4100 #### [facility] [address] [place], [address] Cholesterol in HDL [Mass/Vol] 60 mg/dL Normal [facility] Comment on above: Result Comment: Torie onal Cholesterol Education Program (NCEP) guidelines: <40 mg/dL: Low HDL-cholesterol (major risk factor for CHD) >= 60 mg/dL: High HDL-cholesterol (negative risk factor for CHD) HDL-cholesterol is affected by a number of factors, e.g. smoking, exercise, hormones, sex and age. Performed By: #### L 100.0600, L500.4050, L500.4100 #### [facility] [address] [place], [address] Cholesterol in LDL [Mass/Vol] 236 mg/dL Normal [facility] Comment on above: Result Comment: Bord xfatpq=906-474 mg/dL Higher Qdbl=034 mg/dL or greater Friedwald Equation for LDL-C Performed By: #### L 100.0600, L500.4050, L500.4100 #### [facility] [address] [place], [address] Cholesterol in VLDL [Mass/Vol] 28 mg/dL Normal 5-40 [facility] Comment on above: Performed By: #### L 100.0600, L500.4050, L500.4100 #### [facility] [address] [place], [address] Triglyceride [Mass/Vol] 140 mg/dL Normal [facility] Comment on above: Result Comment: The drugs N-Acetylcysteine and Metamizole may falsely depress this assay. Normal range: <150 mg/dL Borderline High: 150-199 mg/dL High: 200-499 mg/dL Very High: >500 mg/dL Performed By: #### L 100.0600, L500.4050, L500.4100 #### [facility] [place], [address] Potassium measurement (mass/ volume)Ordered By: Anali Daniel on 11-14-2024 Potassium (Unsp spec) [Mass/Vol] 4.6 mmol/L 3.3-5.1 [facility] Screening total cholesterol/ high density lipoprotein (HDL) cholesterol ratioOrdered By: Anali Daniel on 11-14-2024 Cholesterol.total/Angeline sterol in HDL [Mass ratio] 5.36 {ratio} [facility] Serum creatinine measurement (mass/volume)Ordered By: Anali Daniel on 11-14-2024 Creatinine [Mass/Vol] 1.17 mg/dL 0.70-1.20 [facility] Serum globulin measurementOr dered By: Anali Daniel on 11-14-2024 Globulin (S) [Mass/Vol] 2.9 g/dL 2.2-4.2 [facility] Serum glucose measurement (m ass/volume)Ordered By: Anali Daniel on 11-14-2024 Glucose [Mass/Vol] 90 mg/dL 70-99 [facility] Serum or plasma alanine glasgow otransferase (ALT) measurementOrdered By: Anali Daniel on 11-14-2024 ALT [Catalytic activity/Vol] 10 U/L <35 [facility] Serum or plasma albumin bony urement (mass/volume)Ordered By: Anali Daniel on 11-14-2024 Albumin [Mass/Vol] 3.9 g/dL 3.4-4.8 [facility] Serum or plasma albumin/glob ulin mass ratioOrdered By: Anali Daniel on 11-14-2024 Albumin/Globulin [Mass ratio] 1.4 {ratio} 0.9-2.4 [facility] Serum or plasma alkaline ronda sphatase measurementOrdered By: Anali Daniel on 11-14-2024 ALP [Catalytic activity/Vol] 52 U/L 35-104 [facility] Serum or plasma calcium bony urement (mass/volume)Ordered By: Anali Daniel on 11-14-2024 Calcium [Mass/Vol] 9.4 mg/dL 7.6-11.0 [facility] Serum or plasma cholesterol in HDL measurement (mass/volume)Ordered By: Anali Daniel on 11-14-2024 Cholesterol in HDL [Mass/Vol] 60 mg/dL >40 [facility] Comment on above: National Cholesterol Education Program (NCEP) guidelines:<40 mg/dL: Low HDL-cholesterol (major risk factor for CHD)>= 60 mg/dL: High HDL-cholesterol (negative risk factor for CHD)HDL-cholesterol is affected by a number of factors, e.g. smoking, exercise, hormones, sex and age. Serum or plasma cholesterol measurement (mass/volume)Ordered By: Anali Daniel on 11-14-2024 Cholesterol [Mass/Vol] 324 mg/dL High <201 [facility] Comment on above: Cholesterol level, D esirable <200 mg/dLBorderline high cholesterol 200-239 mg/dLHigh cholesterol >=240 mg/dLRecommendations of the NCEP Adult Treatment Panel for the following risk-cutoff thresholds for the [place] population. Serum or plasma urea nitroge n measurement (mass/volume)Ordered By: Anali Daniel on 11-14-2024 Urea nitrogen [Mass/Vol] 24 mg/dL High 4-19 [facility] Sodium levelOrdered By: Addison Daniel on 11-14-2024 Sodium [Moles/Vol] 137 mmol/L 133-145 [facility] Total proteinOrdered By: Alejo Daniel on 11-14-2024 Protein [Mass/Vol] 6.8 g/dL 5.9-8.4 [facility] Triglycerides measurementOrd ered By: Anali Daniel on 11-14-2024 Triglyceride [Mass/Vol] 140 mg/dL <199 [facility] Comment on above: The drugs N-Acetylcy steine and Metamizole may falsely depress this assay. Normal range: <150 mg/dLBorderline High: 150-199 mg/dLHigh: 200-499 mg/dLVery High: >500 mg/dL Troponin T HS 4 HRon 025 Trop T High Sen Normal <=14 [facility] Comment on above: Result Comment: Canc elled via OM: Order cancelled - Patient discharged Performed By: #### L 499.0043 #### [facility] [address] [place], [address] 12 Lead EKGon 10-24-2024 12 Lead EKG [facility] Cardiovascular Services [address] [place] [address] 12 Lead EKG 10/24/242039 MR#: [id number] Acct: [id number] Name: GINA WORTHINGTON Rep #: [id number] : 1935 89 From: Tsering Peñaloza MD [...] Normal ECG Confirmed by ELIZABETH PAEZ, ELIEZER ([id number]), newspaper or periodical editor CANDIE PEMBERTON ([id number]) on 10/25/2024 1:36:59 PM Referred By: YOHANNES Confirmed By: ELIEZER PEÑALOZA MD 10/25/24 1337 Date Tsering Peñaloza MD CC: Dr. Amadou Liu MD; Dr. Steve Farnsworth DO Signed Normal [facility] Absolute lymphocyte countOrd ered By: Steve Farnsworth on 10-24-2024 Lymphocytes Auto (Unsp spec) [#/Vol] 1.10 10*3/uL 0.83-4.51 [facility] Absolute neutrophil countOrd ered By: Steve Farnsworth on 10-24-2024 Neutrophils (Bld) [#/Vol] 3.0 10*3/uL 2.0-7.7 [facility] Anion gap in Serum or Plasma Ordered By: Steve Farnsworth on 10-24-2024 Anion gap [Moles/Vol] 12 mmol/L 5-15 [facility] Automated lymphocyte count a s percentage of total leukocytesOrdered By: Steve Farnsworth on 10-24-2024 Lymphocytes/100 WBC Auto (Unsp spec) 24.4 % [facility] BUN/creatinine ratioOrdered By: Steve Farnsworth on 10-24-2024 Urea nitrogen/Creatinine [Mass ratio] 26.3 mg/mg High 12-24 [facility] Basic Metabolic Profile (BMP )on 10-24-2024 BUN/CRE 26.3 RATIO High 12-24 [facility] Comment on above: Performed By: #### M 100.2200 #### [facility] [address] [place], [address] Calcium [Mass/Vol] 9.7 mg/dL Normal 7.6-11.0 [facility] Comment on above: Performed By: #### M 100.2200 #### [facility] [address] [place], [address] Chloride [Moles/Vol] 103 mmol/L Normal 98-108 [facility] Comment on above: Performed By: #### M 100.2200 #### [facility] [address] [place], [address] CO2 [Moles/Vol] 24.7 mmol/L Normal 21.0-32.0 [facility] Comment on above: Performed By: #### M 100.2200 #### [facility] [address] [place], [address] Creatinine [Mass/Vol] 0.89 mg/dL Normal 0.70-1.20 [facility] Comment on above: Performed By: #### M 100.2200 #### [facility] [address] [place], [address] ECRCL 39.13 ml/min Low 50-250 [facility] Comment on above: Performed By: #### M 100.2200 #### [facility] [address] [place], [address] GAP 12 Normal 5-15 [facility] Comment on above: Performed By: #### M 100.2200 #### [facility] [address] [place], [address] GFR/1.73 sq M.predicted among non-blacks MDRD (S/P/Bld) [Vol rate/Area] 62 mL/min/{1.73_m2} Normal >60 [facility] [facility] Comment on above: Result Comment: mL/m in/1.73m2 CKD-EPI Creatinine Equation (2020) Performed By: #### M 100.2200 #### [facility] [address] [place], [address] Glucose [Mass/Vol] 99 mg/dL Normal 70-99 [facility] Comment on above: Performed By: #### M 100.2200 #### [facility] [address] [place], [address] Potassium [Moles/Vol] 4.6 mmol/L Normal 3.3-5.1 [facility] Comment on above: Result Comment: Hemo lysis present, Results??could be affected. ?? Performed By: #### M 100.2200 #### [facility] [address] [place], [address] Sodium [Moles/Vol] 139 mmol/L Normal 133-145 [facility] Comment on above: Performed By: #### M 100.2200 #### [facility] [address] [place], [address] Urea nitrogen [Mass/Vol] 23 mg/dL High 4-19 [facility] Comment on above: Performed By: #### M 100.2200 #### [facility] [address] [place], [address] Basophil percentageOrdered B y: Steve Farnsworth on 10-24-2024 Basophils/100 WBC (Bld) 0.9 % 0-1 [facility] CBC W/Diff, Automatedon 10-06-2024 Absolute Lymph 1.10 X10 3/uL Normal 0.83-4.51 [facility] Comment on above: Performed By: #### L 100.0100, L501.4021, L500.2500, L300.3900 #### [facility] [address] [place], [address] Absolute Neut 3.0 X10 3/uL Normal 2.0-7.7 [facility] Comment on above: Performed By: #### L 100.0100, L501.4021, L500.2500, L300.3900 #### [facility] [address] [place], [address] Basophils/100 WBC (Bld) 0.9 % Normal 0-1 [facility] Comment on above: Performed By: #### L 100.0100, L501.4021, L500.2500, L300.3900 #### [facility] [address] [place], [address] Eosinophils/100 WBC (Bld) 0.9 % Normal 0-5 [facility] Comment on above: Performed By: #### L 100.0100, L501.4021, L500.2500, L300.3900 #### [facility] [address] [place], [address] Erythrocyte distribution width (RBC) [Ratio] 14.4 % Normal 11.6-14.6 [facility] Comment on above: Performed By: #### L 100.0100, L501.4021, L500.2500, L300.3900 #### [facility] [address] [place], [address] Hematocrit (Bld) [Volume fraction] 35.9 % Low 37-47 [facility] Comment on above: Performed By: #### L 100.0100, L501.4021, L500.2500, L300.3900 #### [facility] [address] [place], [address] Hemoglobin (Bld) [Mass/Vol] 12.0 g/dL Normal 12.0-15.0 [facility] Comment on above: Performed By: #### L 100.0100, L501.4021, L500.2500, L300.3900 #### [facility] [address] [place], [address] IG% 0.400 Normal 0.0-0.9 [facility] Comment on above: Result Comment: IG% - Immature Granulocytes (promyelocytes, myelocytes and metamyelocytes) > 1% indicates that a LEFT SHIFT is Present. Performed By: #### L 100.0100, L501.4021, L500.2500, L300.3900 #### [facility] [address] [place], [address] Lymphocytes/100 WBC (Bld) 24.4 % Normal 19-41 [facility] Comment on above: Performed By: #### L 100.0100, L501.4021, L500.2500, L300.3900 #### [facility] [address] [place], [address] MCH (RBC) [Entitic mass] 32.8 pg High 27.0-32.0 [facility] Comment on above: Performed By: #### L 100.0100, L501.4021, L500.2500, L300.3900 #### [facility] [address] [place], [address] MCHC (RBC) [Mass/Vol] 33.4 g/dL Normal 32-36 [facility] Comment on above: Performed By: #### L 100.0100, L501.4021, L500.2500, L300.3900 #### [facility] [address] [place], [address] MCV (RBC) [Entitic vol] 98.1 fL Normal 81-99 [facility] Comment on above: Performed By: #### L 100.0100, L501.4021, L500.2500, L300.3900 #### [facility] [address] [place], [address] Monocytes/100 WBC (Bld) 7.8 % Normal 0-10 [facility] Comment on above: Performed By: #### L 100.0100, L501.4021, L500.2500, L300.3900 #### [facility] [address] [place], [address] Neutrophils/100 WBC (Bld) 65.6 % Normal 47-70 [facility] Comment on above: Performed By: #### L 100.0100, L501.4021, L500.2500, L300.3900 #### [facility] [address] [place], [address] Nucleated RBC (Bld) [#/Vol] 0 10*3/uL Normal 0-5 [facility] Comment on above: Performed By: #### L 100.0100, L501.4021, L500.2500, L300.3900 #### [facility] [address] [place], [address] Platelet mean volume (Bld) [Entitic vol] 11.6 fL Normal 6.2-12.0 [facility] Comment on above: Performed By: #### L 100.0100, L501.4021, L500.2500, L300.3900 #### [facility] [address] [place], [address] Platelets (Bld) [#/Vol] 203 10*3/uL Normal 150-450 [facility] Comment on above: Performed By: #### L 100.0100, L501.4021, L500.2500, L300.3900 #### [facility] [address] [place], [address] RBC (Bld) [#/Vol] 3.66 10*6/uL Low 4.2-5.4 [facility] Comment on above: Performed By: #### L 100.0100, L501.4021, L500.2500, L300.3900 #### [facility] [address] [place], [address] RDW SD 51.9 fl High 35.1-43.9 [facility] Comment on above: Performed By: #### L 100.0100, L501.4021, L500.2500, L300.3900 #### [facility] [address] [place], [address] WBC (Bld) [#/Vol] 4.5 10*3/uL Normal 4.4-11.0 [facility] Comment on above: Performed By: #### L 100.0100, L501.4021, L500.2500, L300.3900 #### [facility] [address] [place], [address] CTA Chest W/WO Contraston CTA Chest W/WO Contrast [facility] Imaging Services [address] [place] [address] CTA Chest W/WO Contrast MR#: [id number] Acct: [id number] Name: GINA WORTHINGTON Rep #: [id number] : 1935 F 89 From: David Galarza MD PCP: Dr. Amadou Liu MD Status: [facility] ER Study: CTA Chest W/WO Contrast Date of Exam: 10/24/24 Exam# [id number] Ordering Dr: Steve Farnsworth DO PROCEDURE: CTA [...] pole of the right kidney. Reading Location: [facility] CC: Dr. Amadou Liu MD; Dr. Steve Farnsworth DO Learning Support Resource Room Teacher: Signed Normal [facility] Carbon dioxide, total [Moles /volume] in Central venous bloodOrdered By: Steve Farnsworth on 10-24-2024 CO2 [Moles/Vol] 24.7 mmol/L 21.0-32.0 [facility] Chest 1 View (Portable)on Chest 1 View (Portable) [facility] Imaging Services [address] [place] [address] Chest 1 View (Portable) MR#: [id number] Acct: [id number] Name: GINA WORTHINGTON Rep #: [id number] : 1935 F 89 From: Daryl Cotto MD PCP: Dr. Amadou Liu MD Status: [facility] ER Study: Chest 1 View (Portable) Date of Exam: 10/24/24 Exam# [id number] Ordering Dr: Steve Farnsworth DO ADDENDUM by Dr. Daryl Cotto MD on 10/24/24 at 2157 Findings were communicated with the ordering physician Dr. Marvin Farnsworth 9:32 p.m.. 10/24/2024. Reading Location: [facility] 10/24/242156 Date cc: Dr. Amadou Liu MD; [...] be performed for further evaluation. Reading Location: [facility] CC: Dr. Amadou Liu MD; Dr. Steve Farnsworth DO Learning Support Resource Room Teacher: Signed Normal [facility] Chloride assayOrdered By: Rodri Farnsworth on 10-24-2024 Chloride [Moles/Vol] 103 mmol/L 98-108 [facility] Emergency Department Summary on 10-24-2024 Emergency Department Summary [facility] Medical Records Department [address] [place] [address] Emergency Department Summary 10/24/24 MR#: [id number] Acct: [id number] Name: GINA WORTHINGTON Rep #: [id number] : 1935 89 From: Steve Witt PCP: [...] Recent Immobilization or Prior DVT or PE [facility] Medical History Anemia Back pain GERD (gastroesophageal reflux disease) Obesity Deep vein thrombosis Essential (primary) hypertension Nonrheumatic aortic (valve) stenosis Hyperlipidemia Atherosclerotic heart disease of [place] coronary artery without angina pectoris Home Medications [...] Oxygen Deli (more content not included)... Normal [facility] Eosinophil percentageOrdered By: Steve Farnsworth on 10-24-2024 Eosinophils/100 WBC (Bld) 0.9 % 0-5 [facility] Erythrocyte distribution wid th ratioOrdered By: Steve Farnsworth on 10-24-2024 Erythrocyte distribution width (RBC) [Ratio] 14.4 % 11.6-14.6 [facility] Erythrocyte distribution wid th standard deviationOrdered By: Steve Farnsworth on 10-24-2024 Erythrocyte distribution width (RBC) [Ratio] 51.9 fl High 35.1-43.9 [facility] Glomerular filtration rate ( GFR) estimation/1.73 sq m using serum, plasma, or whole bOrdered By: Steve Farnsworth on 10-24-2024 GFR/1.73 sq M.predicted among non-blacks MDRD (S/P/Bld) [Vol rate/Area] 62 mL/min/{1.73_m2} >60 [facility] Comment on above: mL/min/1.73m2 CKD-EP I Creatinine Equation (2020) Hematocrit Auto (Bld) [Volum e fraction]Ordered By: Steve Farnsworth on 10-24-2024 Hematocrit (Bld) [Volume fraction] 35.9 % Low 37-47 [facility] Hemoglobin measurementOrdere d By: Steve Farnsworth on 10-24-2024 Hemoglobin (Bld) [Mass/Vol] 12.0 g/dL 12.0-15.0 [facility] Immature granulocytes/100 WB C Auto (Bld)Ordered By: Steve Farnsworth on 10-24-2024 Immature granulocytes/100 WBC (Bld) 0.400 % 0.0-0.9 [facility] Comment on above: IG% - Immature Granu locytes (promyelocytes, myelocytes and metamyelocytes) > 1% indicates that a LEFT SHIFT is Present. International normalized rat io (INR) calculationOrdered By: Steve Farnsworth on 10-24-2024 INR Coag (Bld) [Relative time] 1.1 {INR} [facility] L501.4021on 10-24-2024 Trop T High Sen 12 ng/L Normal <=14 [facility] Comment on above: Performed By: #### L 100.0100, L501.4021, L500.2500, L300.3900 #### [facility] [address] [place], [address] MCV (mean corpuscular volume ) determinationOrdered By: Steve Farnsworth on 10-24-2024 MCV (RBC) [Entitic vol] 98.1 fL 81-99 [facility] Mean corpuscular hemoglobin (MCH) determinationOrdered By: Steve Farnsworth on 10-24-2024 MCH (RBC) [Entitic mass] 32.8 pg High 27.0-32.0 [facility] Mean corpuscular hemoglobin concentration (MCHC) determinationOrdered By: Steve Farnsworth on 10-24-2024 MCHC (RBC) [Mass/Vol] 33.4 g/dL 32-36 [facility] Mean platelet volume determi nationOrdered By: Steve Farnsworth on 10-24-2024 Platelet mean volume (Bld) [Entitic vol] 11.6 fL 6.2-12.0 [facility] Monocyte percentageOrdered B y: Steve Farnsworth on 10-24-2024 Monocytes/100 WBC (Bld) 7.8 % 0-10 [facility] Neutrophil percentageOrdered By: Steve Farnsworth on 10-24-2024 Neutrophils/100 WBC (Bld) 65.6 % 47-70 [facility] Nucleated red blood cell per centageOrdered By: Steve Yohannes on 10-24-2024 Nucleated RBC/100 WBC (Bld) [Ratio] 0 % 0-5 [facility] Platelet countOrdered By: Rodri Farnsworth on 10-24-2024 Platelets (Bld) [#/Vol] 203 10*3/uL 150-450 [facility] Potassium measurement (mass/ volume)Ordered By: Steve Farnsworth on 10-24-2024 Potassium (Unsp spec) [Mass/Vol] 4.6 mmol/L 3.3-5.1 [facility] Comment on above: Hemolysis present, R esults could be affected. Prothrombin Time w/INRon INR Coag (PPP) [Relative time] 1.1 {INR} Normal [facility] Comment on above: Performed By: #### L 100.0100, L501.4021, L500.2500, L300.3900 #### [facility] [address] [place], [address] PT Coag (PPP) [Time] 14.6 s Normal 11.7-14.9 [facility] Comment on above: Performed By: #### L 100.0100, L501.4021, L500.2500, L300.3900 #### [facility] [address] [place], [address] Prothrombin timeOrdered By: Steve Le on 10-24-2024 PT Coag (PPP) [Time] 14.6 s 11.7-14.9 [facility] RBC Auto (Bld) [#/Vol]Ordere d By: Steve Le on 10-24-2024 RBC (Bld) [#/Vol] 3.66 10*6/uL Low 4.2-5.4 [facility] Serum creatinine measurement (mass/volume)Ordered By: Steve Farnsworth on 10-24-2024 Creatinine [Mass/Vol] 0.89 mg/dL 0.70-1.20 [facility] Serum glucose measurement (m ass/volume)Ordered By: Steve Farnsworth on 10-24-2024 Glucose [Mass/Vol] 99 mg/dL 70-99 [facility] Serum or plasma calcium bony urement (mass/volume)Ordered By: Steve Farnsworth on 10-24-2024 Calcium [Mass/Vol] 9.7 mg/dL 7.6-11.0 [facility] Serum or plasma urea nitroge n measurement (mass/volume)Ordered By: Steve Farnsworth on 10-24-2024 Urea nitrogen [Mass/Vol] 23 mg/dL High 4-19 [facility] Sodium levelOrdered By: Steve Farnsworth on 10-24-2024 Sodium [Moles/Vol] 139 mmol/L 133-145 [facility] Troponin T HS 2 HRon 025 Trop T High Sen 13 ng/L Normal <=14 [facility] Comment on above: Performed By: #### L 499.0042 #### [facility] [address] [facility] [address] [place], [address] Troponin T.cardiac [Mass/vol ume] in Serum or Plasma by High sensitivity methodOrdered By: Steve Farnsworth on 10-24-2024 Troponin T.cardiac High sensitivity method [Mass/Vol] 13 ng/L <14 [facility] Troponin T.cardiac High sensitivity method [Mass/Vol] 12 ng/L <14 [facility] White blood cell (WBC) count Ordered By: Steve Farnsworth on 10-24-2024 WBC (Bld) [#/Vol] 4.5 10*3/uL 4.4-11.0 [facility] Duplex ultrasound of renal a rtery reportOrdered By: Juan Antonio Alaniz on 09-25-2024 Study report [facility] [address] [place] [address] Renal Artery Duplex Ultrasound 09/25/24 0844 MR#: [id number] Acct: [id number] Name: GINA WORTHINGTON Rep #:[id number] : 1935 89 From: Juan Antonio Ibrahim [...] Date Dictated: 09/25/24843 Date Transcribed: 09/25/24 131 Learning Support Resource Room Teacher: Signed [facility] Work Phone: Renal Artery Duplex Ultrasou ndon 09-25-2024 Renal Artery Duplex Ultrasound [facility] Cardiovascular Services [address] [place] [address] Renal Artery Duplex Ultrasound 09/25/2444 MR#: [id number] Acct: [id number] Name: GINA WORTHINGTON Rep #: [id number] : 1935 89 From: Juan Antonio Alaniz [...] Date Dictated: 09/25/24 0844 Date Transcribed: 09/25/241316 Learning Support Resource Room Teacher: Signed Normal [facility] Cardiology Visit Reporton Cardiology Visit Report [facility] [address] [place], [place] [address] OFFICE VISIT Date of Service: 09/14/24 MR#: [id number] Acct: [id number] Name: GINA WORTHINGTON Rep #: [id number] : 1935 Provider: ANDREA Howard Age/Sex: 89/F Location: [facility] Status: Signed HPI HPI History of Present [...] locally and wish to be referred to [facility] for further evaluation. Due to wait time, she contacted [facility] team and scheduled an appointment. She has completed chest CTA. She was referred to their valve team. She is established with the cardiothoracic department at [facility] on 01/31/2024. 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 Normal [facility] 12 Lead EKGon 08-23-2024 12 Lead EKG [facility] Cardiovascular Services [address] [place] [address] 12 Lead EKG 08/23/24 0035 MR#: [id number] Acct: [id number] Name: GINA WROTHINGTON Rep #: [id number] : 1935 89 From: Pieter Cook MD [...] rhythm Normal ECG Confirmed by Pieter Cook ([id number]), newspaper or periodical editor MOSES PALOMO ([id number]) on 08/28/2024 11:30:23 AM Referred By: JEANNE Confirmed By: Pieter Cook 08/28/24 1130 Date Pieter Cook MD CC: Dr. Amadou Liu MD; Ruiz Luo, DO Signed Normal [facility] Absolute lymphocyte countOrd ered By: Ruiz Luo on 08-23-2024 Lymphocytes Auto (Unsp spec) [#/Vol] 1.16 10*3/uL 0.83-4.51 [facility] Absolute neutrophil countOrd ered By: Ruiz Luo on 08-23-2024 Neutrophils (Bld) [#/Vol] 2.4 10*3/uL 2.0-7.7 [facility] Anion gap in Serum or Plasma Ordered By: Ruiz Luo on 08-23-2024 Anion gap [Moles/Vol] 11 mmol/L 5-15 [facility] Automated lymphocyte count a s percentage of total leukocytesOrdered By: Ruiz Luo on 08-23-2024 Lymphocytes/100 WBC Auto (Unsp spec) 27.8 % -41 [facility] BUN/creatinine ratioOrdered By: Ruiz Luo on 08-23-2024 Urea nitrogen/Creatinine [Mass ratio] 20.7 mg/mg High 10-20 [facility] Basic Metabolic Profile (BMP )on 08-23-2024 BUN/CRE 20.7 RATIO High - [facility] Comment on above: Performed By: #### M 100.2200 #### [facility] [address] [place], [address] Calcium [Mass/Vol] 9.5 mg/dL Normal 7.6-11.0 [facility] Comment on above: Performed By: #### M 100.2200 #### [facility] [address] [place], [address] Chloride [Moles/Vol] 102 mmol/L Normal 98-108 [facility] Comment on above: Performed By: #### M 100.2200 #### [facility] [address] [place], [address] CO2 [Moles/Vol] 23.9 mmol/L Normal 21.0-32.0 [facility] Comment on above: Performed By: #### M 100.2200 #### [facility] [address] [place], [address] Creatinine [Mass/Vol] 0.94 mg/dL Normal 0.70-1.20 [facility] Comment on above: Performed By: #### M 100.2200 #### [facility] [address] [place], [address] ECRCL 37.21 ml/min Low 50-250 [facility] Comment on above: Performed By: #### M 100.2200 #### [facility] [address] [place], [address] GAP 11 Normal 5-15 [facility] Comment on above: Performed By: #### M 100.2200 #### [facility] [address] [place], [address] GFR/1.73 sq M.predicted among non-blacks MDRD (S/P/Bld) [Vol rate/Area] 58 mL/min/{1.73_m2} Low >60 [facility] Comment on above: Result Comment: mL/m in/1.73m2 CKD-EPI Creatinine Equation (2020) Performed By: #### M 100.2200 #### [facility] [address] [place], [address] Glucose [Mass/Vol] 108 mg/dL High 70-99 [facility] Comment on above: Performed By: #### M 100.2200 #### [facility] [address] [place], [address] Potassium [Moles/Vol] 4.3 mmol/L Normal 3.3-5.1 [facility] Comment on above: Performed By: #### M 100.2200 #### [facility] [address] [place], [address] Sodium [Moles/Vol] 137 mmol/L Normal 133-145 [facility] Comment on above: Performed By: #### M 100.2200 #### [facility] [address] [place], [address] Urea nitrogen [Mass/Vol] 20 mg/dL High - [facility] Comment on above: Performed By: #### M 100.2200 #### [facility] [address] [place], [address] Basophil percentageOrdered B y: Ruiz Luo on 08-23-2024 Basophils/100 WBC (Bld) 0.7 % 0-1 [facility] CBC W/Diff, Automatedon 08-05 Absolute Lymph 1.16 X10 3/uL Normal 0.83-4.51 [facility] Comment on above: Performed By: #### M 100.2200 #### [facility] [address] [place], [address] Absolute Neut 2.4 X10 3/uL Normal 2.0-7.7 [facility] Comment on above: Performed By: #### M 100.2200 #### [facility] [address] [place], [address] Basophils/100 WBC (Bld) 0.7 % Normal 0-1 [facility] Comment on above: Performed By: #### M 100.2200 #### [facility] [address] [place], [address] Eosinophils/100 WBC (Bld) 1.7 % Normal 0-5 [facility] Comment on above: Performed By: #### M 100.2200 #### [facility] [address] [place], [address] Erythrocyte distribution width (RBC) [Ratio] 14.4 % Normal 11.6-14.6 [facility] Comment on above: Performed By: #### M 100.2200 #### [facility] [address] [place], [address] Hematocrit (Bld) [Volume fraction] 34.7 % Low 37-47 [facility] Comment on above: Performed By: #### M 100.2200 #### [facility] [address] [place], [address] Hemoglobin (Bld) [Mass/Vol] 11.6 g/dL Low 12.0-15.0 [facility] Comment on above: Performed By: #### M 100.2200 #### [facility] [address] [place], [address] IG% 0.500 Normal 0.0-0.9 [facility] Comment on above: Result Comment: IG% - Immature Granulocytes (promyelocytes, myelocytes and metamyelocytes) > 1% indicates that a LEFT SHIFT is Present. Performed By: #### M 100.2200 #### [facility] [address] [place], [address] Lymphocytes/100 WBC (Bld) 27.8 % Normal 19-41 [facility] Comment on above: Performed By: #### M 100.2200 #### [facility] [address] [place], [address] MCH (RBC) [Entitic mass] 32.7 pg High 27.0-32.0 [facility] Comment on above: Performed By: #### M 100.2200 #### [facility] [address] [place], [address] MCHC (RBC) [Mass/Vol] 33.4 g/dL Normal 32-36 [facility] Comment on above: Performed By: #### M 100.2200 #### [facility] [address] [place], [address] MCV (RBC) [Entitic vol] 97.7 fL Normal 81-99 [facility] Comment on above: Performed By: #### M 100.2199 #### [facility] [address] [place], [address] Monocytes/100 WBC (Bld) 10.8 % High 0-10 [facility] Comment on above: Performed By: #### M 100.2199 #### [facility] [address] [place], [address] Neutrophils/100 WBC (Bld) 58.5 % Normal 47-70 [facility] Comment on above: Performed By: #### M 100.2199 #### [facility] [address] [place], [address] Nucleated RBC (Bld) [#/Vol] 0 10*3/uL Normal 0-5 [facility] Comment on above: Performed By: #### M 100.2199 #### [facility] [address] [place], [address] Platelet mean volume (Bld) [Entitic vol] 11.2 fL Normal 6.2-12.0 [facility] Comment on above: Performed By: #### M 100.2199 #### [facility] [address] [place], [address] Platelets (Bld) [#/Vol] 203 10*3/uL Normal 150-450 [facility] Comment on above: Performed By: #### M 100.2199 #### [facility] [address] [place], [address] RBC (Bld) [#/Vol] 3.55 10*6/uL Low 4.2-5.4 [facility] Comment on above: Performed By: #### M 100.2199 #### [facility] [address] [place], [address] RDW SD 52.3 fl High 35.1-43.9 [facility] Comment on above: Performed By: #### M 100.2199 #### [facility] [address] [place], [address] WBC (Bld) [#/Vol] 4.2 10*3/uL Low 4.4-11.0 [facility] Comment on above: Performed By: #### M 100.2200 #### [facility] [address] [place], [address] Carbon dioxide, total [Moles /volume] in Central venous bloodOrdered By: Ruiz Luo on 08-23-2024 CO2 [Moles/Vol] 23.9 mmol/L 21.0-32.0 [facility] Chloride assayOrdered By: Karey Luo on 08-23-2024 Chloride [Moles/Vol] 102 mmol/L 98-108 [facility] Emergency Department Summary on 08-23-2024 Emergency Department Summary [facility] Medical Records Department [address] [facility] [place] [address] Emergency Department Summary 08/23/24 MR#: [id number] Acct: [id number] Name: GINA WORTHINGTON Rep #: [id number] : 1935 89 From: Ruiz Luo DO [...] event and therefore comes in for evaluation [facility] Medical History Anemia Back pain GERD (gastroesophageal reflux disease) Obesity Deep vein thrombosis Essential (primary) hypertension Nonrheumatic aortic (valve) stenosis Hyperlipidemia Atherosclerotic heart disease of [place] coronary artery without angina pectoris Home Medications [...] [place] palpati (more content not included)... Normal [facility] Eosinophil percentageOrdered By: uRiz Luo on 08-23-2024 Eosinophils/100 WBC (Bld) 1.7 % 0-5 [facility] Erythrocyte distribution wid th ratioOrdered By: Ruiz Luo on 08-23-2024 Erythrocyte distribution width (RBC) [Ratio] 14.4 % 11.6-14.6 [facility] Erythrocyte distribution wid th standard deviationOrdered By: Ruiz Luo on 08-23-2024 Erythrocyte distribution width (RBC) [Ratio] 52.3 fl High 35.1-43.9 [facility] Glomerular filtration rate ( GFR) estimation/1.73 sq m using serum, plasma, or whole bOrdered By: Ruiz Luo on 08-23-2024 GFR/1.73 sq M.predicted among non-blacks MDRD (S/P/Bld) [Vol rate/Area] 58 mL/min/{1.73_m2} Low >60 [facility] Comment on above: mL/min/1.73m2 CKD-EP I Creatinine Equation (2020) Hematocrit Auto (Bld) [Volum e fraction]Ordered By: Ruiz Luo on 08-23-2024 Hematocrit (Bld) [Volume fraction] 34.7 % Low 37-47 [facility] Hemoglobin measurementOrdere d By: Ruiz Luo on 08-23-2024 Hemoglobin (Bld) [Mass/Vol] 11.6 g/dL Low 12.0-15.0 [facility] Immature granulocytes/100 WB C Auto (Bld)Ordered By: Ruiz Luo on 08-23-2024 Immature granulocytes/100 WBC (Bld) 0.500 % 0.0-0.9 [facility] Comment on above: IG% - Immature Granu locytes (promyelocytes, myelocytes and metamyelocytes) > 1% indicates that a LEFT SHIFT is Present. L499.0042on 08-23-2024 Trop T High Sen Normal <=14 [facility] Comment on above: Result Comment: Alecia llamas via OM: Ordered Performed By: #### M 100.2200 #### [facility] [address] [place], [place], [address] L501.4021on 08-23-2024 Trop T High Sen 12 ng/L Normal <=14 [facility] Comment on above: Performed By: #### M 100.2200 #### [facility] [address] [place], [address] MCV (mean corpuscular volume ) determinationOrdered By: Ruiz Luo on 08-23-2024 MCV (RBC) [Entitic vol] 97.7 fL 81-99 [facility] Mean corpuscular hemoglobin (MCH) determinationOrdered By: Ruiz Luo on 08-23-2024 MCH (RBC) [Entitic mass] 32.7 pg High 27.0-32.0 [facility] Mean corpuscular hemoglobin concentration (MCHC) determinationOrdered By: Ruiz Luo on 08-23-2024 MCHC (RBC) [Mass/Vol] 33.4 g/dL 32-36 [facility] Mean platelet volume determi nationOrdered By: Ruiz Luo on 08-23-2024 Platelet mean volume (Bld) [Entitic vol] 11.2 fL 6.2-12.0 [facility] Monocyte percentageOrdered B y: Ruiz Luo on 08-23-2024 Monocytes/100 WBC (Bld) 10.8 % High 0-10 [facility] Neutrophil percentageOrdered By: Riuz Luo on 08-23-2024 Neutrophils/100 WBC (Bld) 58.5 % 47-70 [facility] Nucleated red blood cell per centageOrdered By: Ruiz Luo on 08-23-2024 Nucleated RBC/100 WBC (Bld) [Ratio] 0 % 0-5 [facility] Platelet countOrdered By: Karey Luo on 08-23-2024 Platelets (Bld) [#/Vol] 203 10*3/uL 150-450 [facility] Potassium measurement (mass/ volume)Ordered By: Ruiz Luo on 08-23-2024 Potassium (Unsp spec) [Mass/Vol] 4.3 mmol/L 3.3-5.1 [facility] RBC Auto (Bld) [#/Vol]Ordere d By: Ruiz Luo on 08-23-2024 RBC (Bld) [#/Vol] 3.55 10*6/uL Low 4.2-5.4 [facility] Serum creatinine measurement (mass/volume)Ordered By: Ruiz Luo on 08-23-2024 Creatinine [Mass/Vol] 0.94 mg/dL 0.70-1.20 [facility] Serum glucose measurement (m ass/volume)Ordered By: Ruiz Luo on 08-23-2024 Glucose [Mass/Vol] 108 mg/dL High 70-99 [facility] Serum or plasma calcium bony urement (mass/volume)Ordered By: Ruiz Luo on 08-23-2024 Calcium [Mass/Vol] 9.5 mg/dL 7.6-11.0 [facility] Serum or plasma urea nitroge n measurement (mass/volume)Ordered By: Ruiz Luo on 08-23-2024 Urea nitrogen [Mass/Vol] 20 mg/dL High 4-19 [facility] Sodium levelOrdered By: Indio Luo on 08-23-2024 Sodium [Moles/Vol] 137 mmol/L 133-145 [facility] Troponin T.cardiac [Mass/vol ume] in Serum or Plasma by High sensitivity methodOrdered By: Ruiz Luo on 08-23-2024 Troponin T.cardiac High sensitivity method [Mass/Vol] 12 ng/L <14 [facility] White blood cell (WBC) count Ordered By: Ruiz Luo on 08-23-2024 WBC (Bld) [#/Vol] 4.2 10*3/uL Low 4.4-11.0 [facility] Echocardiogram study reportO rdered By: Octavio Lopez on 07-18-2024 Study report [facility] [address] [place] [address] Echo Complete 07/17/24 0905 MR#: [id number] Acct: [id number] Name: GINA WORTHINGTON Rep #:[id number] : 1935 89 From: Octavio Ibrahim Attending Dr: ANDREA Wills Status: REG CLI Ordering Dr: Anali Daniel Date: 07/17/24 Location: [facility] Sex: F C Admitted: Reason For Study [...] ~ Date Dictated: 07/17/24904 Date Transcribed: 07/18/241509 Learning Support Resource Room Teacher: Signed [facility] Work Phone: Echo Completeon 07-17-2024 Echo Complete [facility] [address] [place] [address] Echo Complete 07/17/24904 MR#: [id number] Acct: [id number] Name: GINA WORTHINGTON Rep #: [id number] : 1935 89 From: Octavio Lopez MD Attending Dr: ANDREA Wills Status: REG CLI Ordering Dr: Anali Daniel PA Date: 07/05 05/29 Location: [facility] Sex: F C Admitted: Reason For Study [...] Date Octavio Lopez MD CC: Dr. Amadou iLu MD; ANDREA Wills Date Dictated: 07/17/24904 Date Transcribed: 07/18/24 1510 Transcriptioni (more content not included)... Normal [facility] Cardiology Visit Reporton Cardiology Visit Report [facility] [address] [place] [address] OFFICE VISIT Date of Service: 06/21/24 MR#: [id number] Acct: [id number] Name: GINA WORTHINGTON Rep #: [id number] : 1935 Provider: ANDREA Howard Age/Sex: 89/F Location: [facility] Status: Signed HPI HPI History of Present [...] locally and wish to be referred to [facility] for further evaluation. Due to wait time, she contacted [facility] team and scheduled an appointment. She has completed chest CTA. She was referred to their valve team. She is established with the cardiothoracic department at [facility] on 01/31/2024. On 02/08/2024 patient underwent a [...] last night Intake Visit Reasons: BP Issues [employer] Required: No Accompanied by: Daughter Is patient [...] stenosis Hyperlipidemia Atherosclerotic heart disease of [place] coronary artery without angina pectoris Surgical History [...] caffeine: No (more content not included)... Normal [facility] Absolute lymphocyte countOrd ered By: Anali Dainel on 06-05-2024 Lymphocytes Auto (Unsp spec) [#/Vol] 1.48 10*3/uL 0.83-4.51 [facility] Absolute neutrophil countOrd ered By: Anali Daniel on 06-05-2024 Neutrophils (Bld) [#/Vol] 3.1 10*3/uL 2.0-7.7 [facility] Automated lymphocyte count a s percentage of total leukocytesOrdered By: Anali Daniel on 06-05-2024 Lymphocytes/100 WBC Auto (Unsp spec) 27.8 % 19-41 [facility] Basophil percentageOrdered B y: Anali Daniel on 06-05-2024 Basophils/100 WBC (Bld) 0.8 % 0-1 [facility] CBC W/Diff, Automatedon Absolute Lymph 1.48 X10 3/uL Normal 0.83-4.51 [facility] Comment on above: Performed By: #### M 100.9307 #### [facility] [place], [address] Absolute Neut 3.1 X10 3/uL Normal 2.0-7.7 [facility] Comment on above: Performed By: #### M 100.2200 #### [facility] [address] [place], [address] Basophils/100 WBC (Bld) 0.8 % Normal 0-1 [facility] Comment on above: Performed By: #### M 100.2200 #### [facility] [address] [place], [address] Eosinophils/100 WBC (Bld) 1.9 % Normal 0-5 [facility] Comment on above: Performed By: #### M 100.2200 #### [facility] [address] [place], [address] Erythrocyte distribution width (RBC) [Ratio] 14.5 % Normal 11.6-14.6 [facility] Comment on above: Performed By: #### M 100.2200 #### [facility] [address] [place], [address] Hematocrit (Bld) [Volume fraction] 33.0 % Low 37-47 [facility] Comment on above: Performed By: #### M 100.2200 #### [facility] [address] [place], [address] Hemoglobin (Bld) [Mass/Vol] 10.7 g/dL Low 12.0-15.0 [facility] Comment on above: Performed By: #### M 100.2200 #### [facility] [address] [place], [address] IG% 0.400 Normal 0.0-0.9 [facility] Comment on above: Result Comment: IG% - Immature Granulocytes (promyelocytes, myelocytes and metamyelocytes) > 1% indicates that a LEFT SHIFT is Present. Performed By: #### M 100.2200 #### [facility] [address] [place], [address] Lymphocytes/100 WBC (Bld) 27.8 % Normal 19-41 [facility] Comment on above: Performed By: #### M 100.2200 #### [facility] [address] [place], [address] MCH (RBC) [Entitic mass] 31.8 pg Normal 27.0-32.0 [facility] Comment on above: Performed By: #### M 100.2200 #### [facility] [address] [place], [address] MCHC (RBC) [Mass/Vol] 32.4 g/dL Normal 32-36 [facility] Comment on above: Performed By: #### M 100.2200 #### [facility] [address] [place], [address] MCV (RBC) [Entitic vol] 98.2 fL Normal 81-99 [facility] Comment on above: Performed By: #### M 100.2200 #### [facility] [address] [place], [address] Monocytes/100 WBC (Bld) 10.2 % High 0-10 [facility] Comment on above: Performed By: #### M 100.2200 #### [facility] [address] [place], [address] Neutrophils/100 WBC (Bld) 58.9 % Normal 47-70 [facility] Comment on above: Performed By: #### M 100.2200 #### [facility] [address] [place], [address] Nucleated RBC (Bld) [#/Vol] 0 10*3/uL Normal 0-5 [facility] Comment on above: Performed By: #### M 100.2200 #### [facility] [address] [place], [address] Platelet mean volume (Bld) [Entitic vol] 11.0 fL Normal 6.2-12.0 [facility] Comment on above: Performed By: #### M 100.2200 #### [facility] [address] [place], [address] Platelets (Bld) [#/Vol] 197 10*3/uL Normal 150-450 [facility] Comment on above: Performed By: #### M 100.2200 #### [facility] [address] [place], [address] RBC (Bld) [#/Vol] 3.36 10*6/uL Low 4.2-5.4 [facility] Comment on above: Performed By: #### M 100.2200 #### [facility] [address] [place], [address] RDW SD 51.4 fl High 35.1-43.9 [facility] Comment on above: Performed By: #### M 100.2200 #### [facility] [address] [place], [address] WBC (Bld) [#/Vol] 5.3 10*3/uL Normal 4.4-11.0 [facility] Comment on above: Performed By: #### M 100.2200 #### [facility] [address] [place], [address] Cardiology Visit Reporton Cardiology Visit Report [facility] [address] [place] [address] OFFICE VISIT Date of Service: 06/05/24 MR#: [id number] Acct: [id number] Name: GINA WORTHINGTON Rep #: [id number] : 1935 Provider: ANDREA Howard Age/Sex: 89/F Location: [facility] [place] [place] Status: Signed HPI HPI History of Present [...] locally and wish to be referred to [facility] for further evaluation. Due to wait time, she contacted [facility] team and scheduled an appointment. She has completed chest CTA. She was referred to their valve team. She is established with the cardiothoracic department at [facility] on 01/31/2024. On 02/08/2024 patient underwent a [...] do cardiac rehab while she was in [facility]. 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 Normal [facility] Eosinophil percentageOrdered By: Anali Daniel on 06-05-2024 Eosinophils/100 WBC (Bld) 1.9 % 0-5 [facility] Erythrocyte distribution wid th (RBC) [Ratio]Ordered By: Anali Daniel on 06-05-2024 Erythrocyte distribution width (RBC) [Entitic vol] 51.4 fL High 35.1-43.9 [facility] Erythrocyte distribution wid th ratioOrdered By: Anali Daniel on 06-05-2024 Erythrocyte distribution width (RBC) [Ratio] 14.5 % 11.6-14.6 [facility] Erythrocyte distribution wid th standard deviationOrdered By: Anali Daniel on 06-05-2024 Erythrocyte distribution width (RBC) [Ratio] 51.4 fl High 35.1-43.9 [facility] Hematocrit Auto (Bld) [Volum e fraction]Ordered By: Anali Daniel on 06-05-2024 Hematocrit (Bld) [Volume fraction] 33.0 % Low 37-47 [facility] Hemoglobin measurementOrdere d By: Anali Daniel on 06-05-2024 Hemoglobin (Bld) [Mass/Vol] 10.7 g/dL Low 12.0-15.0 [facility] Immature granulocytes/100 WB C Auto (Bld)Ordered By: Anali Daniel on 06-05-2024 Immature granulocytes/100 WBC (Bld) 0.400 % 0.0-0.9 [facility] Comment on above: IG% - Immature Granu locytes (promyelocytes, myelocytes and metamyelocytes) > 1% indicates that a LEFT SHIFT is Present. Lymphocytes Auto (Unsp spec) [#/Vol]Ordered By: Anali Daniel on 06-05-2024 Lymphocytes (Bld) [#/Vol] 1.48 10*3/uL 0.83-4.51 [facility] Lymphocytes/100 WBC Auto (Un sp spec)Ordered By: Anali Daniel on 06-05-2024 Lymphocytes/100 WBC (Bld) 27.8 % 19-41 [facility] MCV (mean corpuscular volume ) determinationOrdered By: Anali Daniel on 06-05-2024 MCV (RBC) [Entitic vol] 98.2 fL 81-99 [facility] Mean corpuscular hemoglobin (MCH) determinationOrdered By: Anali Daniel on 06-05-2024 MCH (RBC) [Entitic mass] 31.8 pg 27.0-32.0 [facility] Mean corpuscular hemoglobin concentration (MCHC) determinationOrdered By: Anali Daniel on 06-05-2024 MCHC (RBC) [Mass/Vol] 32.4 g/dL 32-36 [facility] Mean platelet volume determi nationOrdered By: Anali Daniel on 06-05-2024 Platelet mean volume (Bld) [Entitic vol] 11.0 fL 6.2-12.0 [facility] Monocyte percentageOrdered B y: Anali Daniel on 06-05-2024 Monocytes/100 WBC (Bld) 10.2 % High 0-10 [facility] Neutrophil percentageOrdered By: Anali Daniel on 06-05-2024 Neutrophils/100 WBC (Bld) 58.9 % 47-70 [facility] Nucleated red blood cell per centageOrdered By: Anali Daniel on 06-05-2024 Nucleated RBC/100 WBC (Bld) [Ratio] 0 % 0-5 [facility] Platelet countOrdered By: Jessica Daniel on 06-05-2024 Platelets (Bld) [#/Vol] 197 10*3/uL 150-450 [facility] RBC Auto (Bld) [#/Vol]Ordere d By: Anali Daniel on 06-05-2024 RBC (Bld) [#/Vol] 3.36 10*6/uL Low 4.2-5.4 [facility] White blood cell (WBC) count Ordered By: Anali Daniel on 06-05-2024 WBC (Bld) [#/Vol] 5.3 10*3/uL 4.4-11.0 [facility] Echo Completeon 03-12-2024 Echo Complete [facility] [place] [address] Echo Complete 03/12/24 1308 MR#: [id number] Acct: [id number] Name: GINA WORTHINGTON Rep #: [id number] : 1935 88 From: Octavio Lopez MD Attending Dr: TETE LANG Status: REG CLI Ordering Dr: TETE LANG Date: 03/12/24 Location: [facility] Sex: F C Admitted: Reason For Study: [...] Referring Physician: JOEL LANG Performed By: Elvira Por RDCS 03/12/24 1503 Date Octavio Lopez MD CC: Dr. Amadou Liu MD; JOEL LANG Date Dictated: 03/12/24 1308 Date Transcribed: 03/12/24 1503 Learning Support Resource Room Teacher: Signed Normal [facility] Echocardiogram study reportO rdered By: Octavio Lopez on 03-12-2024 Study report [facility] Services [address] [place] [address] Echo Complete 03/12/24 1308 MR#: [id number] Acct: [id number] Name: GINA WORTHINGTON Rep #:[id number] : 1935 88 From: Octavio Ibrahim Attending Dr: TETE LANG Status: REG CLI Ordering Dr: TETE LANG [place] e: 03/12/24 Location: [facility] Sex: F C Admitted: Reason For Study: [...] Dictated: 03/12/24 1308 Date Transcribed: 03/12/24 1503 Learning Support Resource Room Teacher: Signed [facility] Work Phone: Urine Cultureon 02-27-2024 UR Presumptive E. coli [place] Count >100,000 Enterococcus faecalis Enterococcus faecalis Presumptive [...] R Vancomycin Islt ALEJO 2 S Normal [facility] Comment on above: Performed By: #### M 100.2200 #### [facility] [address], [place], [address] Urine cultureOrdered By: Maryam Liu on 02-24-2024 Bacteria identified Cx Nom (U) Presumptive E. coli Abnormal [facility] Bacteria identified Cx Nom (U) Enterococcus faecalis Abnormal [facility] Cardiology Visit Reporton Cardiology Visit Report [facility] [address] [place] [address] OFFICE VISIT Date of Service: 02/22/24 MR#: [id number] Acct: [id number] Name: GINA WORTHINGTON Rep #: [id number] : 1935 Provider: ANDREA Howard Age/Sex: 88/F Location: [facility] Status: Signed HPI HPI History of Present [...] locally and wish to be referred to [facility] for further evaluation. Due to wait time, she contacted [facility] team and scheduled an appointment. She has completed chest CTA. She was referred to their valve team. She is established with the cardiothoracic department at [facility] on 01/31/2024. On 02/08/2024 patient underwent a [...] Patient has a virtual follow-up with the [facility] in a few weeks. She is also planning on leaving for [place] for 3 months after the first of the year. She would like to participate in cardiac rehab while she is in [place]. Feel that she would be beneficial with [...] air Intake Visit Reasons: 6 M FU [employer] Required: No Accompanied by: Daughter Is patient [...] and left forearm numbness since recent TAVR. [facility] Medical History GERD (gastroesophageal reflux disease) Obesity Deep vein thrombosis Essential (primary) hypertension Nonrheumatic aortic (valve) stenosis Hyperlipidemia Atherosclerotic heart disease of [place] coronary artery without angina p (more content not included)... Normal [facility] Emergency Department Summary on 02-04-2024 Emergency Department Summary [facility] Medical Records Department [address] [place] [address] Emergency Department Summary 02/04/24 MR#: [id number] Acct: [id number] Name: GINA WORTHINGTON Rep #: [id number] : 1935 88 From: Steve Witt PCP: [...] having an upcoming vascular cardiology appointment in [place] in 5 days. History of aortic stenosis. She denies any leg swelling with this. 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 Denies fever or chills. Currently her leg is normal. Prior similar symptoms: Yes PFSH [facility] Medical History GERD (gastroesophageal reflux disease) Obesity Deep vein thrombosis Essential (primary) hypertension Nonrheumatic aortic (valve) stenosis Hyperlipidemia Atherosclerotic heart disease of [place] coronary artery without angina pectoris Home Medications [...] to i (more content not included)... Normal [facility] .Auto Diffon 01-23-2024 Basophil, Absolute 0.0 10 3/mcL Normal 0.0-0.3 [facility] MAIN Comment on above: Performed By: #### T GANESH, CBC, MDW, ANEU, ADIFF, GFR, MG, PBNP, CMP #### [address] [address] Basophils/100 WBC (Bld) 0.7 % Normal 0.0-2.5 [facility] MAIN Comment on above: Performed By: #### T GANESH, CBC, EFFIE, ANEU, ADIFF, GFR, MG, PBNP, CMP #### [address] [address] Eosinophil, Absolute 0.1 10 3/mcL Normal 0.0-0.7 [facility] MAIN Comment on above: Performed By: #### T GANESH, CBC, EFFIE, ANEU, ADIFF, GFR, MG, PBNP, CMP #### [address] [address] Eosinophils/100 WBC (Bld) 2.1 % Normal 0.0-6.0 [facility] Comment on above: Performed By: #### T GANESH, TONJA, EFFIE, ANEU, ADIFF, GFR, MG, PBNP, CMP #### [address] [address] Lymphocyte, Absolute 1.8 10 3/mcL Normal 0.9-4.3 [facility] MA[facility] Comment on above: Performed By: #### T GANESH, TONJA, EFFIE, ANEU, ADIFF, GFR, MG, PBNP, CMP #### [address] [address] Lymphocytes/100 WBC (Bld) 40.2 % High 20.0-40.0 [facility] Comment on above: Performed By: #### T GANESH, CBC, MDW, ANEU, ADIFF, GFR, MG, PBNP, CMP #### [address] [address] Monocyte, Absolute 0.5 10 3/mcL Normal 0.1-1.4 [facility] MAIN Comment on above: Performed By: #### T GANESH, CBC, MDW, ANEU, ADIFF, GFR, MG, PBNP, CMP #### [address] [address] Monocytes/100 WBC (Bld) 11.7 % Normal 2.0-13.0 [facility] Comment on above: Performed By: #### T GANESH, CBC, MDW, ANEU, ADIFF, GFR, MG, PBNP, CMP #### [address] [address] Neutrophils/100 WBC (Bld) 45.3 % Low 50.0-75.0 [facility] Comment on above: Performed By: #### T GANESH, TONJA, MDW, ANEU, ADIFF, GFR, MG, PBNP, CMP #### [address] [address] .GFRon 01-23-2024 GFR >60 [facility] MAIN Comment on above: Result Comment: GFR [...] MDW, ANEU, ADIFF, GFR, MG, PBNP, CMP ####[address] [address] GFR Non- >60 Normal [facility] MAIN Comment on above: Result Comment: GFR [...] MDW, ANEU, ADIFF, GFR, MG, PBNP, CMP ####[address] [address] .MDWon 01-23-2024 Monocyte Distribution Width 17.09 Normal 0.00-20.00 [facility] Comment on above: Result Comment: For ED adult patients suspected of sepsis, MDW<=20.0 does not rule out sepsis or risk of sepsis Performed By: #### T GANESH, CBC, MDW, ANEU, ADIFF, GFR, MG, PBNP, CMP #### [address] [address] .NEUABSon 01-23-2024 Neutrophil, Absolute 2.0 10 3/mcL Low 2.3-8.1 [facility] MAIN Comment on above: Performed By: #### T GANESH, TONJA, MDW, ANEU, ADIFF, GFR, MG, PBNP, CMP #### [address] [address] 12 Lead EKG performed by [facility] on 01-23-2024 12 Lead EKG performed by [facility] [address] [place] [address] 12 Lead EKG performed by [facility] 01/23/24 1251 MR#: [id number] Acct: [id number] Name: GINA WORTHINGTON Rep #: [id number] : 1935 88 From: Erik H Roof METAL FABRICATOR METAL FABRICATOR-C Attending Dr: ROLANDO PerezC Status: DEP AMB Ordering Dr: Erik Lucas NP METAL FABRICATOR-C Date: 01/23/24 Location: [facility] Sex: F C Admitted: BMS/12 Lead EKG performed by [facility] ECG Report Interpretation ------Sinus Rhythm -Nonspecific ST depression -Nondiagnostic. ABNORMAL Electronically signed on 01/24/2024 at 08:28 by Octavio Lopezwood Software Version [id number] 01/24/24 0832 Date Erik Lucas METAL FABRICATOR METAL FABRICATOR-C CC: Dr. Amadou Liu MD Date Dictated: 01/23/24 1251 Date Transcribed: 01/23/24 125 Learning Support Resource Room Teacher: LIAM Signed Normal [facility] CBCon 01-23-2024 Erythrocyte distribution width (RBC) [Ratio] 14.9 % Normal 11.5-15.5 [facility] MA[facility] Comment on above: Performed By: #### T TONJA ANDERSEN MDW, ANEU, ADIFF, GFR, MG, PBNP, CMP #### [address] [address] Hematocrit (Bld) [Volume fraction] 41.0 % Normal 34.0-46.0 [facility] Comment on above: Performed By: #### T TONJA ANDERSEN MDW, ANEU, ADIFF, GFR, MG, PBNP, CMP #### [address] [address] Hgb 13.6 G/dL Normal 12.0-16.0 [facility] Comment on above: Performed By: #### T TONJA ANDERSEN MDW, ANEU, ADIFF, GFR, MG, PBNP, CMP #### [address] [address] MCH (RBC) [Entitic mass] 32.9 pg Normal 27.0-33.0 [facility] Comment on above: Performed By: #### T GANESH, CBC, MDW, ANEU, ADIFF, GFR, MG, PBNP, CMP #### [place] [address] MCHC 33.2 G/dL Normal 32.0-36.0 [facility] Comment on above: Performed By: #### T GANESH, CBC, MDW, ANEU, ADIFF, GFR, MG, PBNP, CMP #### [place] [address] MCV (RBC) [Entitic vol] 99.1 fL High 80.0-99.0 [facility] Comment on above: Performed By: #### T GANESH, CBC, MDW, ANEU, ADIFF, GFR, MG, PBNP, CMP #### [place] [address] Platelet 164 10 3/mcL Normal 150-450 [facility] Comment on above: Performed By: #### T GANESH, CBC, MDW, ANEU, ADIFF, GFR, MG, PBNP, CMP #### [place] [address] Platelet mean volume (Bld) [Entitic vol] 10.1 fL Normal 6.6-10.5 [facility] Comment on above: Performed By: #### T GANESH, CBC, MDW, ANEU, ADIFF, GFR, MG, PBNP, CMP #### [place] [address] RBC 4.14 10 6/mcL Normal 4.10-5.30 [facility] Comment on above: Performed By: #### T GANESH, CBC, MDW, ANEU, ADIFF, GFR, MG, PBNP, CMP #### [place] [address] WBC 4.5 10 3/mcL Normal 4.5-10.8 [facility] Comment on above: Performed By: #### T GANESH, CBC, MDW, ANEU, ADIFF, GFR, MG, PBNP, CMP #### [place] [address] CMPon 01-23-2024 Albumin Level 3.5 G/dL Normal 3.2-4.8 [facility] Comment on above: Performed By: #### T GANESH, CBC, MDW, ANEU, ADIFF, GFR, MG, PBNP, CMP ####[address] [address] Albumin/Globulin [Mass ratio] 1.0 {ratio} Normal 0.9-1.6 [facility] Comment on above: Performed By: #### T GANESH, CBC, MDW, ANEU, ADIFF, GFR, MG, PBNP, CMP ####[address] [address] ALP [Catalytic activity/Vol] 49 U/L Normal 38-126 [facility] Comment on above: Performed By: #### T GANESH, CBC, MDW, ANEU, ADIFF, GFR, MG, PBNP, CMP ####[address] [address] ALT [Catalytic activity/Vol] 9 U/L Low 10-49 [facility] Comment on above: Performed By: #### T GANESH, CBC, MDW, ANEU, ADIFF, GFR, MG, PBNP, CMP ####[place] [id number] AST [Catalytic activity/Vol] 21 U/L Normal 8-34 [facility] Comment on above: Performed By: #### T GANESH, CBC, MDW, ANEU, ADIFF, GFR, MG, PBNP, CMP ####[place] [id number] Bili Total 0.50 mg/dL Normal 0.20-1.20 [facility] Comment on above: Result Comment: Use of this assay is not recommended for patients undergoing treatment with eltrombopag due to the potential for falsely elevated results. Performed By: #### T GANESH, CBC, MDW, ANEU, ADIFF, GFR, MG, PBNP, CMP ####[address] [address] BUN/Creatinine Ratio 18.1 ratio Normal 10.0-22.0 [facility] MAIN Comment on above: Performed By: #### T GANESH, CBC, MDW, ANEU, ADIFF, GFR, MG, PBNP, CMP ####[address] [address] Calcium [Mass/Vol] 9.8 mg/dL Normal 8.7-10.4 [facility] MAIN Comment on above: Performed By: #### T GANESH, CBC, MDW, ANEU, ADIFF, GFR, MG, PBNP, CMP ####[address] [address] Chloride [Moles/Vol] 107 mmol/L Normal 98-110 [facility] MAIN Comment on above: Performed By: #### T GANESH, CBC, MDW, ANEU, ADIFF, GFR, MG, PBNP, CMP ####[address] [address] CO2 [Moles/Vol] 25 mmol/L Normal 22-32 [facility] Comment on above: Performed By: #### T GANESH, CBC, MDW, ANEU, ADIFF, GFR, MG, PBNP, CMP ####[address] [address] Creatinine [Mass/Vol] 0.83 mg/dL Normal 0.50-1.20 [facility] MAIN Comment on above: Result Comment: Test ing performed on [employer] analyzer using enzymatic creatinine methodology. Performed By: #### T GANESH, CBC, MDW, ANEU, ADIFF, GFR, MG, PBNP, CMP ####[place] [address] Electrolyte Balance 7.0 mEq/L Normal 4.0-15.0 [facility] MAIN Comment on above: Performed By: #### T GANESH, CBC, MDW, ANEU, ADIFF, GFR, MG, PBNP, CMP ####[address] [address] Globulin 3.6 G/dL Normal 1.5-3.8 [facility] Comment on above: Performed By: #### T GANESH, CBC, MDW, ANEU, ADIFF, GFR, MG, PBNP, CMP ####[address] [address] Glucose [Mass/Vol] 93 mg/dL Normal 82-115 [facility] MAIN Comment on above: Performed By: #### T GANESH, CBC, MDW, ANEU, ADIFF, GFR, MG, PBNP, CMP ####[place] [address] Potassium [Moles/Vol] 4.4 mmol/L Normal 3.5-5.0 [facility] MAIN Comment on above: Performed By: #### T GANESH, CBC, MDW, ANEU, ADIFF, GFR, MG, PBNP, CMP ####[place] [id number] Sodium [Moles/Vol] 139 mmol/L Normal 136-145 [facility] MAIN Comment on above: Performed By: #### T GANESH, CBC, MDW, ANEU, ADIFF, GFR, MG, PBNP, CMP ####[place] [address] Total Protein 7.1 G/dL Normal 5.7-8.2 [facility] Comment on above: Performed By: #### T GANESH, CBC, MDW, ANEU, ADIFF, GFR, MG, PBNP, CMP ####[place] [address] Urea nitrogen [Mass/Vol] 15.0 mg/dL Normal 8.0-22.0 [facility] Comment on above: Performed By: #### T GANESH, CBC, MDW, ANEU, ADIFF, GFR, MG, PBNP, CMP ####[place] [address] CT HEAD OR BRAIN W/O CONTRAS Ton [...] 01/23/2024 4:06:01 AM Ordering Provider: KASSANDRA MITTAL [facility] MAIN Cardiology Visit Reporton Cardiology Visit Report [facility] [address] [place] [address] OFFICE VISIT Date of Service: 01/23/24 MR#: [id number] Acct: [id number] Name: GINA WORTHINGTON Rep #: [id number] : 1935 Provider: GENA bennett Age/Sex: 88/F Location: [facility] Status: Signed HPI HPI History of Present [...] locally and wish to be referred to [facility] for further evaluation. Due to wait time, she contacted [facility] team and scheduled an appointment. She has completed chest CTA. She was seen at [facility] Emergency Department for chest pain. Work-up was [...] Intake Visit Reasons: chest tightness per [employer] Required: No Is patient in pain?: No [...] you fallen in the past year?: No [facility] Medical History (Updated 01/10/24 @ 19:36 by Megha Isidro) GERD (gastroesophageal reflux disease) Obesity Deep vein thrombosis Essential (primary) hypertension Nonrheumatic aortic (valve) stenosis Hyperlipidemia Atherosclerotic heart disease of [place] coronary artery without angina pectoris Surgical History [...] or p (more content not included)... Normal [facility] LABORATORYOrdered By: SYSTEM SYSTEM on 01-23-2024 Troponin I.cardiac DL <= 0.01 ng/mL [Mass/Vol] 11 ng/L Normal 0 - 34 ng/L ADM SS Comment on above: Interpretive Data: High Sensitive Troponin I Reference Ranges: Female: 0-34 ng/L Male: 0-54 ng/L Testing performed on [employer] IM analyzer using direct chemiluminescent technology. Albumin [...] above: Interpretive Data: T esting performed on [employer] CH analyzer using enzymatic creatinine methodology. Electrolyte [...] (S/P/Bld) [Vol rate/Area] ml/min/1.73sqm Invalid Interpretation Code [facility] Comment on above: Interpretive Data: [...] (S/P/Bld) [Vol rate/Area] ml/min/1.73sqm Invalid Interpretation Code [facility] Comment on above: Interpretive Data: [...] ng/L Male: 0-54 ng/L Testing performed on [employer] IM analyzer using direct chemiluminescent technology. Urea nitrogen [Mass/Vol] 15.0 mg/dL Normal 8.0 - 22.0 mg/dL ADM SS Urea nitrogen/Creatinine [Mass ratio] 18.1 ratio Normal 10.0 - 22.0 ratio ADM SS WBC (Bld) [#/Vol] 4.5 103/mcL Normal 4.5 - 10.8 10^3/mcL Workflow SS MGon 01-23-2024 Magnesium [Mass/Vol] 1.9 mg/dL Normal 1.6-2.4 [facility] MAIN Comment on above: Performed By: #### Anton ANDERSEN, CBC, MDW, ANEU, ADIFF, GFR, MG, PBNP, CMP #### [address] [address] PBNPon 01-23-2024 Natriuretic peptide B (Bld) [Mass/Vol] 1383 pg/mL Normal 0-1800 [facility] MA[facility] Comment on above: Performed By: ###Frederick ANDERSEN, CBC, MDW, ANEU, ADIFF, GFR, MG, PBNP, CMP #### [address] [address] TROPHSon 01-23-2024 High Sensitivity Troponin I 11 ng/L Normal 0-34 [facility] MA[facility] Comment on above: Result Comment: High Sensitive Troponin I Reference Ranges: Female: 0-34 ng/L Male: 0-54 ng/L Testing performed on [employer] IM analyzer using direct chemiluminescent technology. Performed By: ###Frederick ANDERSEN #### [address] [address] High Sensitivity Troponin I 11 ng/L Normal 0-34 [facility] MA[facility] Comment on above: Result Comment: High Sensitive Troponin I Reference Ranges: Female: 0-34 ng/L Male: 0-54 ng/L Testing performed on [employer] IM analyzer using direct chemiluminescent technology. Performed By: #### T ROPHS, CBC, MDW, ANEU, ADIFF, GFR, MG, PBNP, CMP #### [place] [id number] XR CHEST 1 VIEWon 01-23-2024 XR CHEST [...] 01/23/2024 3:33:33 AM Ordering Provider: KASSANDRA MITTAL [facility] MAIN 12 Lead EKGon 01-10-2024 12 Lead EKG [facility] Cardiovascular Services [address] [place] [address] 12 Lead EKG 01/10/241924 MR#: [id number] Acct: [id number] Name: GINA WORTHINGTON Rep #: [id number] : 1935 88 From: Pieter Cook MD [...] ) Borderline ECG Confirmed by Pieter Cook ([id number]), newspaper or periodical editor CANDIE PEMBERTON ([id number]) on 01/11/2024 1:08:40 PM Referred By: Confirmed By: Pieter Cook 01/11/24 1308 Date Pieter Cook MD CC: Dr. Amadou Liu MD; Dr. Hiram Bill DO Signed Normal [facility] Basic Metabolic Profile (BMP )on 01-10-2024 BUN/CRE 13.4 RATIO Normal 10-20 [facility] Comment on above: Order Comment: 'TROP ' Serial specimen #1, #2 or #3: 11Y Performed By: #### M 100.2200 #### [facility] Laboratory [address] [place], [address] CA,Total 9.4 mg/dL Normal 8.5-10.1 [facility] Comment on above: Order Comment: 'TROP ' Serial specimen #1, #2 or #3: 11Y Performed By: #### M 100.2200 #### [facility] [address] [place], [address] Chloride [Moles/Vol] 107 mmol/L Normal 98-107 [facility] Comment on above: Order Comment: 'TROP ' Serial specimen #1, #2 or #3: 11Y Performed By: #### M 100.2200 #### [facility] [address] [place], [address] CO2 [Moles/Vol] 26.0 mmol/L Normal 21.0-32.0 [facility] Comment on above: Order Comment: 'TROP ' Serial specimen #1, #2 or #3: 11Y Performed By: #### M 100.2200 #### [facility] [address] [place], [address] Creatinine [Mass/Vol] 0.90 mg/dL Normal 0.55-1.02 [facility] Comment on above: Order Comment: 'TROP ' Serial specimen #1, #2 or #3: 11Y Result Comment: The validity of the calculated GFR GFRAA in patients over 70 years has not been determined. Clinical correlation is essential. Performed By: #### M 100.2200 #### [facility] [address] [place], [address] ECRCL 39.40 ml/min Normal [facility] Comment on above: Order Comment: 'TROP ' Serial specimen #1, #2 or #3: 11Y Performed By: #### M 100.2200 #### [facility] [address] [place], [address] EST GFR - AA 76 mL/min Normal >60 [facility] Comment on above: Order Comment: 'TROP ' Serial specimen #1, #2 or #3: 11Y Result Comment: Afri can Cymro GFR Calc Performed By: #### M 100.2200 #### [facility] [address] [place], [address] GAP 7 Normal 5-15 [facility] Comment on above: Order Comment: 'TROP ' Serial specimen #1, #2 or #3: 11Y Performed By: #### M 100.2200 #### [facility] [address] [place], [address] GFR/1.73 sq M.predicted among non-blacks MDRD (S/P/Bld) [Vol rate/Area] 63 mL/min/{1.73_m2} Normal >60 [facility] Comment on above: Order Comment: 'TROP ' Serial specimen #1, #2 or #3: 11Y Result Comment: Non- GFR Calc Performed By: #### M 100.2200 #### [facility] [address] [place], [address] Glucose [Mass/Vol] 94 mg/dL Normal 74-106 [facility] Comment on above: Order Comment: 'TROP ' Serial specimen #1, #2 or #3: 11Y Performed By: #### M 100.2200 #### [facility] [address] [place], [address] Potassium [Moles/Vol] 3.9 mmol/L Normal 3.5-5.1 [facility] Comment on above: Order Comment: 'TROP ' Serial specimen #1, #2 or #3: 11Y Performed By: #### M 100.2200 #### [facility] [address] [place], [address] Sodium [Moles/Vol] 139 mmol/L Normal 136-145 [facility] Comment on above: Order Comment: 'TROP ' Serial specimen #1, #2 or #3: 11Y Performed By: #### M 100.2200 #### [facility] [address] [place], [address] Urea nitrogen [Mass/Vol] 12 mg/dL Normal 7-18 [facility] Comment on above: Order Comment: 'TROP ' Serial specimen #1, #2 or #3: 11Y Performed By: #### M 100.2200 #### [facility] [address] [place], [address] CBC W/Diff, Automatedon 11-0 5-2024 Absolute Lymph 2.10 X10 3/uL Normal 0.83-4.51 [facility] Comment on above: Performed By: #### M 100.2200 #### [facility] [address] [place], [address] Absolute Neut 2.0 X10 3/uL Normal 2.0-7.7 [facility] Comment on above: Performed By: #### M 100.2200 #### [facility] [address] [place], [address] Basophils/100 WBC (Bld) 0.9 % Normal 0-1 [facility] Comment on above: Performed By: #### M 100.2200 #### [facility] [address] [place], [address] Eosinophils/100 WBC (Bld) 0.9 % Normal 0-5 [facility] Comment on above: Performed By: #### M 100.2200 #### [facility] [address] [place], [address] Erythrocyte distribution width (RBC) [Ratio] 14.1 % Normal 11.6-14.6 [facility] Comment on above: Performed By: #### M 100.2200 #### [facility] [address] [place], [address] Hematocrit (Bld) [Volume fraction] 38.9 % Normal 37-47 [facility] Comment on above: Performed By: #### M 100.2200 #### [facility] [address] [place], [address] Hemoglobin (Bld) [Mass/Vol] 13.1 g/dL Normal 12.0-15.0 [facility] Comment on above: Performed By: #### M 100.2200 #### [facility] [address] [place], [address] IG% 0.000 Normal 0.0-0.9 [facility] Comment on above: Result Comment: IG% - Immature Granulocytes (promyelocytes, myelocytes and metamyelocytes) > 1% indicates that a LEFT SHIFT is Present. Performed By: #### M 100.2200 #### [facility] [address] [place], [address] Lymphocytes/100 WBC (Bld) 46.1 % High 19-41 [facility] Comment on above: Performed By: #### M 100.2200 #### [facility] [address] [place], [address] MCH (RBC) [Entitic mass] 33.0 pg High 27.0-32.0 [facility] Comment on above: Performed By: #### M 100.2200 #### [facility] [address] [place], [address] MCHC (RBC) [Mass/Vol] 33.7 g/dL Normal 32-36 [facility] Comment on above: Performed By: #### M 100.2200 #### [facility] [address] [place], [address] MCV (RBC) [Entitic vol] 98.0 fL Normal 81-99 [facility] Comment on above: Performed By: #### M 100.2200 #### [facility] [address] [place], [address] Monocytes/100 WBC (Bld) 9.4 % Normal 0-10 [facility] Comment on above: Performed By: #### M 100.2200 #### [facility] [address] [place], [address] Neutrophils/100 WBC (Bld) 42.7 % Low 47-70 [facility] Comment on above: Performed By: #### M 100.2200 #### [facility] [address] [place], [address] Nucleated RBC (Bld) [#/Vol] 0 10*3/uL Normal 0-5 [facility] Comment on above: Performed By: #### M 100.2200 #### [facility] [address] [place], [address] Platelet mean volume (Bld) [Entitic vol] 11.2 fL Normal 6.2-12.0 [facility] Comment on above: Performed By: #### M 100.2200 #### [facility] [address] [place], [address] Platelets (Bld) [#/Vol] 224 10*3/uL Normal 150-450 [facility] Comment on above: Performed By: #### M 100.2200 #### [facility] [address] [place], [address] RBC (Bld) [#/Vol] 3.97 10*6/uL Low 4.2-5.4 [facility] Comment on above: Performed By: #### M 100.2200 #### [facility] [address] [place], [address] RDW SD 50.9 fl High 35.1-43.9 [facility] Comment on above: Performed By: #### M 100.2200 #### [facility] [address] [place], [address] WBC (Bld) [#/Vol] 4.6 10*3/uL Normal 4.4-11.0 [facility] Comment on above: Performed By: #### M 100.2200 #### [facility] [address] [place], [address] Chest 1 View (Portable)on Chest 1 View (Portable) [facility] Imaging Services [address] [place] [address] Chest 1 View (Portable) MR#: [id number] Acct: [id number] Name: GINA WORTHINGTON Rep #: [id number] : 1935 F 88 From: Tino Cagle MD PCP: Dr. Amadou Liu MD Status: [facility] ER Study: Chest 1 View (Portable) Date of Exam: 01/10/24 Exam# [id number] Ordering Dr: Hiram Bill DO [id number] STUDY: X-RAY CHEST REASON FOR EXAM: Female, [...] Amadou Liu MD; Dr. Hiram Bill DO Learning Support Resource Room Teacher: Signed Normal [facility] Emergency Department Summary on 01-10-2024 Emergency Department Summary [facility] Medical Records Department [address] [place] [address] Emergency Department Summary 01/10/24 MR#: [id number] Acct: [id number] Name: GINA WORTHINGTON Rep #: [id number] : 1935 88 From: Hiram Bill DO PCP: Dr. Amadou Liu MD Status:REG ER Location: ED HPI History of Present Illness Chief Complaint: Chest Pain [facility] Medical History (Updated 01/10/24 @ 19:36 by Megha Isidro) GERD (gastroesophageal reflux disease) Obesity Deep vein thrombosis Essential (primary) hypertension Nonrheumatic aortic (valve) stenosis Hyperlipidemia Atherosclerotic heart disease of [place] coronary artery without angina pectoris Home Medications [...] edema Ne (more content not included)... Normal [facility] L501.4020on 01-10-2024 TROPONIN-I HS 12 pg/mL Normal 3.0-54.0 [facility] Comment on above: Result Comment: Pledebra leija Note: New Test Units and Gender Specific Reference Ranges. For more information see Policy Stat Procedure [place] High Sensitivity Troponin (TNIH) and attachments. Performed By: #### L 499.0043 #### [facility] [address] [place], [place], [address] L501.5425on 01-10-2024 TROPONIN-I HS 12 pg/mL Normal 3.0-54.0 [facility] Comment on above: Order Comment: 'TROP ' Serial specimen #1, #2 or #3: 11Y Result Comment: Pledebra leija Note: New Test Units and Gender Specific Reference Ranges. For more information see Policy Stat Procedure [place] High Sensitivity Troponin (TNIH) and attachments. Performed By: #### M 100.2200 #### [facility] [address] [place], [address] CBC W Auto Differential pane l (Bld)on 01-07-2024 Basophils (Bld) [#/Vol] 0.03 10*3/uL Normal <0.11 [facility] Comment on above: Order Comment: Speci men Type: BLOOD SPECIMEN Ordering Facility: [facility] Address: [address] [place] [address] Performed By: #### 5 7021-8 #### [facility] CLIA [id number] [address] [place] [address] [place] Basophils/100 WBC (Bld) 0.7 % Normal [facility] Comment on above: Order Comment: Speci men Type: BLOOD SPECIMEN Ordering Facility: [facility] Address: [address] [place] [address] Performed By: #### 5 7021-8 #### [facility] CLIA [id number] [address] [place] [address] [place] Differential cell count method Nom (Bld) Auto Normal [facility] Comment on above: Order Comment: Speci men Type: BLOOD SPECIMEN Ordering Facility: [facility] Address: [address] [place] [address] Performed By: #### 5 7021-8 #### [facility] CLIA [id number] [address] [place] [address] [place] Eosinophils (Bld) [#/Vol] 0.06 10*3/uL Normal <0.46 [facility] Comment on above: Order Comment: Speci men Type: BLOOD SPECIMEN Ordering Facility: [facility] Address: [address] [place] [address] Performed By: #### 5 7021-8 #### [facility] CLIA [id number] [address] [place] [address] [place] Eosinophils/100 WBC (Bld) 1.3 % Normal [facility] Comment on above: Order Comment: Speci men Type: BLOOD SPECIMEN Ordering Facility: [facility] Address: [address] [place] [address] Performed By: #### 5 7021-8 #### [facility] CLIA [id number] [address] [place] [address] [place] Erythrocyte distribution width (RBC) [Ratio] 13.9 % Normal 11.5-15.0 [facility] Comment on above: Order Comment: Speci men Type: BLOOD SPECIMEN Ordering Facility: [facility] Address: [address] [place] [address] Performed By: #### 5 7021-8 #### [facility] CLIA [id number] [address] [place] [address] [place] Hematocrit (Bld) [Volume fraction] 41.1 % Normal 36.0-46.0 [facility] Comment on above: Order Comment: Speci men Type: BLOOD SPECIMEN Ordering Facility: [facility] Address: [address] [place] [address] Performed By: #### 5 7021-8 #### [facility] CLIA [id number] [address] [place] [address] [place] Hemoglobin (Bld) [Mass/Vol] 13.8 g/dL Normal 11.5-15.5 [facility] Comment on above: Order Comment: Speci men Type: BLOOD SPECIMEN Ordering Facility: [facility] Address: [address] [place] [address] Performed By: #### 5 7021-8 #### [facility] CLIA [id number] [address] [place] [address] [place] Immature granulocytes (Bld) [#/Vol] 10*3/uL Normal <0.10 [facility] Comment on above: Order Comment: Speci men Type: BLOOD SPECIMEN Ordering Facility: [facility] Address: [address] [place] [address] Performed By: #### 5 7021-8 #### [facility] CLIA [id number] [address] [place] [address] [place] Immature granulocytes/100 WBC (Bld) 0.2 % Normal [facility] Comment on above: Order Comment: Speci men Type: BLOOD SPECIMEN Ordering Facility: [facility] Address: [address] [place] [address] Performed By: #### 5 7021-8 #### [facility] CLIA [id number] [address] [place] [address] [place] Lymphocytes (Bld) [#/Vol] 1.91 10*3/uL Normal 1.00-4.00 [facility] Comment on above: Order Comment: Speci men Type: BLOOD SPECIMEN Ordering Facility: [facility] Address: [address] [place] [address] Performed By: #### 5 7021-8 #### [facility] CLIA [id number] [address] [place] [address] [place] Lymphocytes/100 WBC (Bld) 42.9 % Normal [facility] Comment on above: Order Comment: Speci men Type: BLOOD SPECIMEN Ordering Facility: [facility] Address: [address] [place] [address] Performed By: #### 5 7021-8 #### [facility] CLIA [id number] [address] [place] [address] [place] MCH (RBC) [Entitic mass] 32.9 pg Normal 26.0-34.0 [facility] Comment on above: Order Comment: Speci men Type: BLOOD SPECIMEN Ordering Facility: [facility] Address: [address] [place] [address] Performed By: #### 5 7021-8 #### [facility] CLIA [id number] [address] [place] [address] [place] MCHC (RBC) [Mass/Vol] 33.6 g/dL Normal 30.5-36.0 [facility] Comment on above: Order Comment: Speci men Type: BLOOD SPECIMEN Ordering Facility: [facility] Address: [address] [place] [address] Performed By: #### 5 7021-8 #### [facility] CLIA [id number] [address] [place] [address] [place] MCV (RBC) [Entitic vol] 97.9 fL Normal 80.0-100.0 [facility] Comment on above: Order Comment: Speci men Type: BLOOD SPECIMEN Ordering Facility: [facility] Address: [address] [place] [address] Performed By: #### 5 7021-8 #### [facility] CLIA [id number] [address] [place] [address] [place] Monocytes (Bld) [#/Vol] 0.50 10*3/uL Normal <0.87 [facility] Comment on above: Order Comment: Speci men Type: BLOOD SPECIMEN Ordering Facility: [facility] Address: [address] [place] [address] Performed By: #### 5 7021-8 #### [facility] CLIA [id number] [address] [place] [address] [place] Monocytes/100 WBC (Bld) 11.2 % Normal [facility] Comment on above: Order Comment: Speci men Type: BLOOD SPECIMEN Ordering Facility: [facility] Address: [address] [place] [address] Performed By: #### 5 7021-8 #### [facility] CLIA [id number] [address] [place] [address] [place] Neutrophils (Bld) [#/Vol] 1.94 10*3/uL Normal 1.45-7.50 [facility] Comment on above: Order Comment: Speci men Type: BLOOD SPECIMEN Ordering Facility: [facility] Address: [address] [place] [address] Performed By: #### 5 7021-8 #### [facility] CLIA [id number] [address] [place] [address] [place] Neutrophils/100 WBC (Bld) 43.7 % Normal [facility] Comment on above: Order Comment: Speci men Type: BLOOD SPECIMEN Ordering Facility: [facility] Address: [address] [place] [address] Performed By: #### 5 7021-8 #### [facility] CLIA [id number] [address] [place] [address] [place] Nucleated RBC (Bld) [#/Vol] 10*3/uL Normal <0.01 [facility] Comment on above: Order Comment: Speci men Type: BLOOD SPECIMEN Ordering Facility: [facility] Address: [address] [place] [address] Performed By: #### 5 7021-8 #### [facility] CLIA [id number] [address] [place] [address] [place] Nucleated RBC/100 WBC (Bld) [Ratio] 0.0 /100 WBC Normal [facility] Comment on above: Order Comment: Speci men Type: BLOOD SPECIMEN Ordering Facility: [facility] Address: [address] [place] [address] Performed By: #### 5 7021-8 #### [facility] CLIA [id number] [address] [place] [address] [place] Platelet mean volume (Bld) [Entitic vol] 12.3 fL Normal 9.0-12.7 [facility] Comment on above: Order Comment: Speci men Type: BLOOD SPECIMEN Ordering Facility: [facility] Address: [address] [place] [address] Performed By: #### 5 7021-8 #### [facility] CLIA [id number] [address] [place] [address] [place] Platelets (Bld) [#/Vol] 213 10*3/uL Normal 150-400 [facility] Comment on above: Order Comment: Speci men Type: BLOOD SPECIMEN Ordering Facility: [facility] Address: [address] [place] [address] Performed By: #### 5 7021-8 #### [facility] CLIA [id number] [address] [place] [address] [place] RBC (Bld) [#/Vol] 4.20 10*6/uL Normal 3.90-5.20 [facility] Comment on above: Order Comment: Speci men Type: BLOOD SPECIMEN Ordering Facility: [facility] Address: [address] [place] [address] Performed By: #### 5 7021-8 #### [facility] CLIA [id number] [address] [place] [address] [place] WBC (Bld) [#/Vol] 4.45 10*3/uL Normal 3.70-11.00 [facility] Comment on above: Order Comment: Speci men Type: BLOOD SPECIMEN Ordering Facility: [facility] Address: [address] [place] [address] Performed By: #### 5 7021-8 #### [facility] CLIA [id number] [address] [place], [place] [address] [place] Comprehensive metabolic 2000 panelon 01-07-2024 Albumin [Mass/Vol] 4.2 g/dL Normal 3.9-4.9 [facility] Comment on above: Order Comment: Speci men Type: BLOOD SPECIMEN Ordering Facility: [facility] Address: [address] [place] [address] Performed By: #### L JJ5425, 25314-7, 34723-4 #### [facility] CLIA [id number] [address] [place] [address] [place] ALP [Catalytic activity/Vol] 57 U/L Normal 34-123 [facility] Comment on above: Order Comment: Speci men Type: BLOOD SPECIMEN Ordering Facility: [facility] Address: [address] [place] [address] Performed By: #### L DH4032, 12237-8, 72386-4 #### [facility] CLIA [id number] [address] [place] [address] [place] ALT [Catalytic activity/Vol] 9 U/L Normal 7-38 [facility] Comment on above: Order Comment: Speci men Type: BLOOD SPECIMEN Ordering Facility: [facility] Address: [address] [place] [address] Performed By: #### L TF2717, 09509-5, 65795-9 #### [facility] CLIA [id number] [address] [place] [address] [place] Anion gap [Moles/Vol] 14 mmol/L Normal 8-15 [facility] Comment on above: Order Comment: Speci men Type: BLOOD SPECIMEN Ordering Facility: [facility] Address: [address] [place] [address] Performed By: #### L NK6412, 63137-7, 36707-9 #### [facility] CLIA [id number] [address] [place] [address] [place] AST [Catalytic activity/Vol] 23 U/L Normal 13-35 [facility] Comment on above: Order Comment: Speci men Type: BLOOD SPECIMEN Ordering Facility: [facility] Address: [address] [place] [address] Result Comment: Resu lts may be falsely increased due to interference from hemolysis. Suggest reorder as clinically indicated. Performed By: #### L ZQ8733, 55873-6, 47877-4 #### [facility] CLIA [id number] [address] [place] [address] [place] Bilirubin [Mass/Vol] 0.5 mg/dL Normal 0.2-1.3 [facility] Comment on above: Order Comment: Speci men Type: BLOOD SPECIMEN Ordering Facility: [facility] Address: [address] [place] [address] Performed By: #### L [id number], , #### [facility] CLIA [id number] [address] [place] [address] [place] Calcium [Mass/Vol] 9.5 mg/dL Normal 8.5-10.2 [facility] Comment on above: Order Comment: Speci men Type: BLOOD SPECIMEN Ordering Facility: [facility] Address: [address] [place] [address] Performed By: #### L [id number], , #### [facility] CLIA [id number] [address] [place] [address] [place] Chloride [Moles/Vol] 102 mmol/L Normal 98-107 [facility] Comment on above: Order Comment: Speci men Type: BLOOD SPECIMEN Ordering Facility: [facility] Address: [address] [place] [address] Performed By: #### L [id number], , #### [facility] CLIA [id number] [address] [place] [address] [place] CO2 [Moles/Vol] 22 mmol/L Normal 22-30 [facility] Comment on above: Order Comment: Speci men Type: BLOOD SPECIMEN Ordering Facility: [facility] Address: [address] [place] [address] Performed By: #### L [id number], , #### [facility] CLIA [id number] [address] [place], [place] [address] [place] Creatinine [Mass/Vol] 0.85 mg/dL Normal 0.58-0.96 [facility] Comment on above: Order Comment: Sixto toribio Type: BLOOD SPECIMEN Ordering Facility: [facility] Address: [address] [place] [address] Performed By: #### L [id number], 34834-9, #### [facility] CLIA [id number] [address] [place] [address] [place] Creatinine and Glomerular filtration rate.predicted panel (S/P/Bld) 66 mL/min/1.73m??? Normal >=60 [facility] Comment on above: Order Comment: Sixto toribio Type: BLOOD SPECIMEN Ordering Facility: [facility] Address: [address] [place] [address] Result Comment: Jody mated Glomerular Filtration Rate [...] reflect actual GFR. Performed By: #### L [id number], , #### [facility] CLIA [id number] [address] [place] [address] [place] Glucose [Mass/Vol] 83 mg/dL Normal 74-99 [facility] Comment on above: Order Comment: Sixto toribio Type: BLOOD SPECIMEN Ordering Facility: [facility] Address: [address] [place] [address] Result Comment: The [place] Diabetes Association (ADA) provides guidance for cutoff [...] Standards of Medical Care in Diabetes 2016, [place] [employer]. Diabetes Care. 2016.39(Suppl 1). Performed By: #### L [id number], , #### [facility] CLIA [id number] [address] [place] [address] [place] Potassium [Moles/Vol] 4.0 mmol/L Normal 3.7-5.1 [facility] Comment on above: Order Comment: Speci men Type: BLOOD SPECIMEN Ordering Facility: [facility] Address: [address] [place] [address] Performed By: #### L [id number], , #### [facility] CLIA [id number] [address] [place] [address] [place] Protein [Mass/Vol] 7.6 g/dL Normal 6.3-8.0 [facility] Comment on above: Order Comment: Speci men Type: BLOOD SPECIMEN Ordering Facility: [facility] Address: [address] [place] [address] Performed By: #### L [id number], , #### [facility] CLIA [id number] [address] [place] [address] [place] Sodium [Moles/Vol] 138 mmol/L Normal 136-144 [facility] Comment on above: Order Comment: Speci men Type: BLOOD SPECIMEN Ordering Facility: [facility] Address: [address] [place] [address] Performed By: #### L [id number], , #### [facility] CLIA [id number] [address] [place], [place] [address] [place] Urea nitrogen [Mass/Vol] 15 mg/dL Normal 7-21 [facility] Comment on above: Order Comment: Speci men Type: BLOOD SPECIMEN Ordering Facility: [facility] Address: [address] [place] [address] Performed By: #### L [id number], 70171-4, 98817-0 #### [facility] CLIA [id number] [address] [place] [address] OF [facility] [id number] 01-07-2024 ECG01 Ventricular Rate : 69 BPM Atrial Rate : 69 BPM P-R Interval : 182 ms QRS Duration : 78 ms Q-T Interval : 422 ms QTC Calculation(Bazett) : 452 ms Calculated P [place] : 55 degrees Calculated R [place] : 40 degrees Calculated T [place] : 56 degrees NORMAL SINUS RHYTHM NONSPECIFIC ST ABNORMALITY ABNORMAL ECG 0341 Confirmed by ELLEN ALMODOVAR MD (), newspaper or periodical editor ANGEL CASTELLANOS ([id number]) on 01/09/2024 11:11:28 AM NAME : GINA WORTHINGTON PID : [id number] : 1935 Gender : Female Race : ORD : Procedure Date : Jan 07 2024 03:38:09 Edit Date : Jan 09 2024 11:11:37 Diagnosis: NORMAL SINUS RHYTHM NONSPECIFIC ST ABNORMALITY ABNORMAL ECG 0341 Confirmed by ELLEN ALMODOVAR MD (), newspaper or periodical editor ANGEL CASTELLANOS ([id number]) on 01/09/2024 11:11:28 AM Test Reason : Location : 2 : EDNS 029 Overread By : ELLEN ALMODOVAR MD Edited By : ANGEL CASTELLANOS Referred By : , Acquired by : Alejandra CHO [facility] ED NOTEon 01-07-2024 ED NOTE HNO ID: [id number] Author: TAZ MORRIS, MICHAEL Service: Emergency Medicine Author Type: Registered Nurse Type: ED Notes Filed: 01/10/2024 11:07 Note Text: Emergency Services: ED Call Back Questionnaire SERVICE DATE: 01/07/2024 Are you feeling better? No gets tired when walking, pt consulted her grape picker Any questions about discharge instructions and follow-up care? No Were you able to make a follow up appointment? No, referred to appointment hotline Do you have any further questions? No Is there anything that we could have done differently to improve your ED visit? No SIGNATURE: Taz Morris RN PATIENT NAME: Gina Worthington DATE: January 10, 2024 TIME: 11:06 AM Normal [facility] ED PROV NOTEon 01-07-2024 ED PROV NOTE HNO ID: [id number] Author: ELLEN ALMODOVAR MD Service: Emergency Medicine [...] ECG COMPLETE (more content not included)... Normal [facility] HIGH SENSITIVITY TROPONIN T (INITIAL)on 01-07-2024 Troponin T.cardiac High sensitivity method [Mass/Vol] 13 ng/L High <12 [facility] Comment on above: Order Comment: Sixto toribio Type: BLOOD SPECIMEN Ordering Facility: [facility] Address: [address] [place] [address] Performed By: #### L [id number], 99186-8, 32476-7 #### [facility] CLIA [id number] [address] [place] [address] [place] Magnesium SerPl-ncon 01-06 Magnesium [Mass/Vol] 2.0 mg/dL Normal 1.7-2.3 [facility] Comment on above: Order Comment: Sixto toribio Type: BLOOD SPECIMEN Ordering Facility: [facility] Address: [address] [place] [address] Performed By: #### L EN5446, 56388-1, 38942-5 #### [facility] CLIA [id number] [address] [facility] [place] [id number] [place] XR CHEST 2V [...] tissues: Unremarkable. IMPRESSION: No acute radiographic abnormality. Learning Support Resource Room Teacher: PSCBeverley Transcribe Date/Time: Jan 07 2024 5:32A Dictated by : DIPAK CASAS MD This examination was interpreted and the report reviewed and electronically signed by: DIPAK CASAS MD on Jan 07 2024 5:33AM EST [id number] CN Normal [facility] CNPNon 12-26-2023 CNPN Telephone ([facility]) GINA WORTHINGTON ([id number]) 1935 F T Date Time Provider Department [...] Reason for Visit: Received Outside Medical Records [7772] Primary Visit Diagnosis:Nonrheumat ic aortic (valve) stenosis [I35.0] Order(s):CONSULT TO TAVR/TMVR [[id number]] Order #: [id number]: 1 Prescriptions as of 01/04/2024 - warfarin [...] Noted Resolved CAD (coronary artery disease), [place] coronary *08/26/2014 S/P coronary artery stent placement [Z95.5] 08/26/2014 Chest pain [R07.9] 08/26/2014 DVT of lower extremity (deep venous thrombosis)*08/27/19 15 Hypertension [I10] 08/26/2014 Hyperlipidemia [E78.5] 08/26/2014 Statin intolerance [Z78.9] 08/26/2014 Encounter Status:Closed by MELISSA FRIEND on 12/26/23 [facility] CNPNon 12-23-2023 [facility] GINA WORTHINGTON ([id number]) 1935 F Date Time Provider Department 12/23/23 [facility] During your visit today, we recorded the following information about you: José Luis Jett 12/23/2023 8:36 AM Signed RECEIVED CALL FROM: Family member - Name: Maria Victoria PATIENT INFORMATION: Name: Gina Worthington : 1935 (home) Email: [email or web address] Referring Provider: No referring provider defined for this encounter. Phone: N/A Fax: Requested Surgeon: First Available/Unspecifie d Reason for appointment/diagnosi s : Aortic stenosis José Luis Jett December 23, 2023 8:34 AM Allergies As of Date: 12/23/2023 (Not on File) Date Reviewed: Never Reviewed Problem List As Of Date: 12/23/2023 (None) Encounter Status:Closed by JOSÉ LUIS JETT on 12/23/23 [facility] Nasopharyngeal Cultureon NAC No growth in 48 hours. Normal [facility] Comment on above: Performed By: #### L 499.0043 #### [facility] [address] [place], [place], [address] Gram Stainon 12-22-2023 Gram Stain 1+ White Blood Cells No organisms seen Normal [facility] Comment on above: Performed By: #### L 499.0043 #### [facility] [address] [place], [address] Cardiology Visit Reporton Cardiology Visit Report [facility] [address] [place], [place] [address] OFFICE VISIT Date of Service: 12/21/23 MR#: [id number] Acct: [id number] Name: GINA WORTHINGTON Rep #: [id number] : 1935 Provider: GENA bennett Age/Sex: 88/F Location: [facility] Status: Signed with Addenda ADDENDUM by GENA [...] Dr. Amadou Liu MD * Signed HPI [facility] History of Present Illness Details: GINA WORTHINGTON, [...] Visit Reasons: 3 WK FU per [place] [employer] Weapons Officer Required: No Is patient in pain?: No [...] 12/21/23 @ 09:41 by Erik Lucas NP, METAL FABRICATOR-C) Deep vein thrombosis Obesity Essential (primary) hypertension Nonrheumatic aortic (valve) stenosis Hyperlipidemia Atherosclerotic heart disease of [place] coronary artery without angina pectoris Surgical History [...] Cardio Ches (more content not included)... Normal [facility] Echo Completeon 12-21-2023 Echo Complete [facility] [address] [place] [address] Echo Complete 12/21/23 0800 MR#: [id number] Acct: [id number] Name: GINA WORTHINGTON Rep #: [id number] : 1935 88 From: Octavio Lopez MD [...] Octavio Lopez MD Performed By: Elvira Pro, [facility] 12/21/23 1414 Date Octavio Lopez MD CC: Dr. Amadou Liu MD; Dr. Octavio Lopez MD Date Dictated: 12/21/23 0800 Date Transcribed: 12/21/23 1414 Learning Support Resource Room Teacher: Signed Normal [facility] HEMOGLOBIN A1con 03-04-2023 HEMOGLOBIN A1c 5.8 [...] diabetes for children. Performed By: #### 8 44, 47850, 496 #### [facility] [address] [place] [address], [address] [place] [address] Shipper Receiver: Jay Ferro MD TSHon 03-04-2023 TSH Qn 2.48 m[IU]/L Normal 0.40-4.50 [facility] Comment on above: Order Comment: FASTI NG: NO Performed By: #### 8 99, 85533, 496 #### [facility] [address], [address] [place] [address] Shipper Receiver: Jay Ferro MD VITAMIN D,25-OH,TOTAL,IAon 1 VITAMIN [...] D, (D2,D3), LC/MS/MS is recommended: order code 92446 (patients >2yrs). See Note 1 Note 1 For additional information, please refer to http://education.CiRBA/faq/LCY515 (This link is being provided for informational/ educational purposes only.) Performed By: #### 8 99, 03988, 496 #### [facility] [address], [address] [place] [address] Shipper Receiver: Jay Ferro MD Absolute lymphocyte countOrd ered By: Mario Anthony on 01-23-2023 Lymphocytes Auto (Unsp spec) [#/Vol] 1.39 10*3/uL 0.83-4.51 [facility] Basophil percentageOrdered B y: Mario Cruz on 01-23-2023 Basophils/100 WBC (Bld) 0.6 % 0-1 [facility] Chloride [Moles/Vol] 106 mmol/L 98-107 [facility] Eosinophils/100 WBC (Bld) 0.8 % 0-5 [facility] Glucose [Mass/Vol] 98 mg/dL 74-106 [facility] Neutrophils (Bld) [#/Vol] 3.4 10*3/uL 2.0-7.7 [facility] Neutrophils/100 WBC (Bld) 63.9 % 47-70 [facility] Potassium [Moles/Vol] 4.2 mmol/L 3.5-5.1 [facility] Sodium [Moles/Vol] 138 mmol/L 136-145 [facility] WBC (Bld) [#/Vol] 5.3 10*3/uL 4.4-11.0 [facility] Blood erythrocytes count (nu mber/volume)Ordered By: Mario Cruz on 01-23-2023 RBC (Bld) [#/Vol] 4.02 10*6/uL 4.2-5.4 [facility] Blood hemoglobin measurement (mass/volume)Ordered By: Mario Cruz on 01-23-2023 Hemoglobin (Bld) [Mass/Vol] 12.5 g/dL 12.0-15.0 [facility] Blood lymphocytes/100 leukoc ytesOrdered By: Mario Cruz on 01-23-2023 Lymphocytes/100 WBC (Bld) 26.2 % 19-41 [facility] Blood monocytes/100 leukocyt esOrdered By: Mario Cruz on 01-23-2023 Monocytes/100 WBC (Bld) 8.1 % 0-10 [facility] Blood platelet mean volumeOr dered By: Mario Cruz on 01-23-2023 Platelet mean volume (Bld) [Entitic vol] 10.7 fL 6.2-12.0 [facility] Determination of erythrocyte mean corpuscular volume (MCV)Ordered By: Mario Cruz on 01-23-2023 MCV (RBC) [Entitic vol] 97.0 fL 81-99 [facility] Hematocrit Auto (Bld) [Volum e fraction]Ordered By: Mario Cruz on 01-23-2023 Hematocrit (Bld) [Volume fraction] 39.0 % 37-47 [facility] Laboratory - Chemistry and C hemistry - challengeOrdered By: Mario Cruz on 01-23-2023 CO2 [Moles/Vol] 29.0 mmol/L 21.0-32.0 [facility] Urea nitrogen/Creatinine [Mass ratio] 27.4 mg/mg 10-20 [facility] Laboratory - Hematology and Cell countsOrdered By: Mario Cruz on 01-23-2023 Erythrocyte distribution width (RBC) [Entitic vol] 49.8 fL 35.1-43.9 [facility] Erythrocyte distribution width (RBC) [Ratio] 14.0 % 11.6-14.6 [facility] Immature granulocytes/100 WBC (Bld) 0.400 % 0.0-0.9 [facility] Comment on above: IG% - Immature Granu locytes (promyelocytes, myelocytes and metamyelocytes) > 1% indicates that a LEFT SHIFT is Present. MCH (RBC) [Entitic mass] 31.1 pg 27.0-32.0 [facility] Nucleated RBC/100 WBC (Bld) [Ratio] 0 % 0-5 [facility] MCHC Auto (RBC) [Mass/Vol]Or dered By: Mario Cruz on 01-23-2023 MCHC (RBC) [Mass/Vol] 32.1 g/dL 32-36 [facility] No Panel InformationOrdered By: Mario Cruz on 01-23-2023 Estimated Creatinine Clearance Calc 34.45 ml/min [facility] Estimated GFR (MDRD) Amer 75 mL/min >60 [facility] Comment on above: GFR Calc Estimated GFR (MDRD) Non-Af Amer 62 mL/min >60 [facility] Comment on above: Non- GFR Calc Troponin I High Sensitivity 11 pg/mL 3.0-54.0 [facility] Comment on above: Please Note: New Frannie t Units and Gender Specific Reference Ranges. For more information see Policy Stat Procedure [place] High Sensitivity Troponin (TNIH) and attachments. Platelets bldOrdered By: Jourdan Cruz on 01-23-2023 Platelets (Bld) [#/Vol] 225 10*3/uL 150-450 [facility] Serum or plasma calcium bony urement (mass/volume)Ordered By: Mario Cruz on 01-23-2023 Calcium [Mass/Vol] 9.1 mg/dL 8.5-10.1 [facility] Serum or plasma creatinine m easurement (mass/volume)Ordered By: Mario Cruz on 01-23-2023 Creatinine [Mass/Vol] 0.91 mg/dL 0.55-1.02 [facility] Comment on above: The validity of the calculated GFR & GFRAA in patients over 70 years has not been determined. Clinical correlation is essential. Serum or plasma urea nitroge n measurement (mass/volume)Ordered By: Mario Cruz on 01-23-2023 Urea nitrogen [Mass/Vol] 25 mg/dL - [facility] Thin prep Papanicolaou smear with manual screeningOrdered By: Mario Cruz on 01-23-2023 Thin prep Papanicolaou smear with manual screening 3 -15 [facility] HEMOGLOBIN A1con 07-16-2022 HEMOGLOBIN A1c 5.5 [...] diagnosis of diabetes in children. According to [place] Diabetes Association (ADA) guidelines, hemoglobin A1c <7.0% represents optimal control in non- diabetic patients. Different metrics may apply to specific patient populations. Standards of Medical Care in Diabetes(ADA). Performed By: #### 8 [id number], 321 #### [facility] [address], [address] [place], [place] [id number] Shipper Receiver: Jay Frero MD TSHon 07-16-2022 TSH Qn 2.06 m[IU]/L Normal 0.40-4.50 [facility] Comment on above: Order Comment: FASTI NG: NO Performed By: #### 8 99, 856 #### [facility] [address], [address] [place] [id number] Shipper Receiver: Jay Ferro MD Absolute lymphocyte counton 06-15-2021 Lymphocytes Auto (Unsp spec) [#/Vol] 1.54 10*3/uL 0.83-4.51 [facility] Work Phone: Basophil percentageon 2021 Basophils/100 WBC (Bld) 0.4 % 0-1 [facility] Work Phone: Bilirubin [Mass/Vol] 0.40 mg/dL 0.20-1.00 [facility] Work Phone: Comment on above: For patients on eltr ombopag therapy, use of Dimension [place] TBIL is not recommended. Chloride [Moles/Vol] 99 mmol/L 98-107 [facility] Work Phone: [phone] Eosinophils/100 WBC (Bld) 2.0 % 0-5 [facility] Work Phone: Glucose [Mass/Vol] 89 mg/dL 74-106 [facility] Work Phone: Neutrophils (Bld) [#/Vol] 2.9 10*3/uL 2.0-7.7 [facility] Work Phone: Neutrophils/100 WBC (Bld) 56.3 % 47-70 [facility] Work Phone: Potassium [Moles/Vol] 4.0 mmol/L 3.5-5.1 [facility] Work Phone: Protein [Mass/Vol] 7.6 g/dL 6.4-8.2 [facility] Work Phone: Sodium [Moles/Vol] 134 mmol/L 136-145 [facility] Work Phone: WBC (Bld) [#/Vol] 5.1 10*3/uL 4.4-11.0 [facility] Work Phone: Blood erythrocytes count (nu mber/volume)on 06-15-2021 RBC (Bld) [#/Vol] 3.83 10*6/uL 4.2-5.4 [facility] Work Phone: Blood hemoglobin measurement (mass/volume)on 06-15-2021 Hemoglobin (Bld) [Mass/Vol] 12.1 g/dL 12.0-15.0 [facility] Work Phone: Blood lymphocytes/100 leukoc yteson 06-15-2021 Lymphocytes/100 WBC (Bld) 30.3 % 19-41 [facility] Work Phone: Blood monocytes/100 leukocyt eson 06-15-2021 Monocytes/100 WBC (Bld) 10.8 % 0-10 [facility] Work Phone: Blood platelet mean volumeon 06-15-2021 Platelet mean volume (Bld) [Entitic vol] 11.2 fL 6.2-12.0 [facility] Work Phone: Determination of erythrocyte mean corpuscular volume (MCV)on 06-15-2021 MCV (RBC) [Entitic vol] 97.1 fL 81-99 [facility] Work Phone: Erythrocyte sedimentation ra karen 06-15-2021 ESR (Bld) [Velocity] 38 mm/h 0-30 [facility] Work Phone: Hematocrit Auto (Bld) [Volum e fraction]on 06-15-2021 Hematocrit (Bld) [Volume fraction] 37.2 % 37-47 [facility] Work Phone: Laboratory - Chemistry and C hemistry - challengeon 06-15-2021 ALP [Catalytic activity/Vol] 61 U/L 45-117 [facility] Work Phone: ALT [Catalytic activity/Vol] 15 U/L 13-56 [facility] Work Phone: CO2 [Moles/Vol] 29.0 mmol/L 21.0-32.0 [facility] Work Phone: Globulin (S) [Mass/Vol] 4.3 g/dL 2.2-4.2 [facility] Work Phone: Urea nitrogen/Creatinine [Mass ratio] 29.5 mg/mg 10-20 [facility] Work Phone: Laboratory - Hematology and Cell countson 06-15-2021 Erythrocyte distribution width (RBC) [Entitic vol] 46.1 fL 35.1-43.9 [facility] Work Phone: Erythrocyte distribution width (RBC) [Ratio] 13.0 % 11.6-14.6 [facility] Work Phone: Immature granulocytes/100 WBC (Bld) 0.200 % 0.0-0.9 [facility] Work Phone: Comment on above: IG% - Immature Granu locytes (promyelocytes, myelocytes and metamyelocytes) > 1% indicates that a LEFT SHIFT is Present. MCH (RBC) [Entitic mass] 31.6 pg 27.0-32.0 [facility] Work Phone: Nucleated RBC/100 WBC (Bld) [Ratio] 0 % 0-5 [facility] Work Phone: MCHC Auto (RBC) [Mass/Vol]on 06-15-2021 MCHC (RBC) [Mass/Vol] 32.5 g/dL 32-36 [facility] Work Phone: No Panel Informationon 06-15 Anti-Nuclear Antibody Screen Negative Negative [facility] Work Phone: Comment on above: Performed at: [address] [id number] Director: Nirmal Isidro PhD, Phone: [phone] Estimated GFR (MDRD) Amer 100 mL/min >60 [facility] Work Phone: Comment on above: GFR Calc Estimated GFR (MDRD) Non-Af Amer 83 mL/min >60 [facility] Work Phone: Comment on above: Non- GFR Calc Hepatitis B Surface Antigen Non-Reactive Nonreactive [facility] Work Phone: Hepatitis C Antibody Non-Reactive Nonreactive [facility] Work Phone: Comment on above: Non Reactive: < 0.8 Equivocal: >/= 0.8 to < 1.0 Reactive: >/= 1.0The CDC recommends that a reactive/equivocal HCV antibody result be followed up by the HCV Nucleic Acid Amplificationtest (513712) Platelets bldon 06-15-2021 Platelets (Bld) [#/Vol] 320 10*3/uL 150-450 [facility] Work Phone: Serum cyclic citrullinated p eptide IgG antibody assay (units/volume)on 06-15-2021 Cyclic citrullinated peptide IgG Qn 2 units [facility] Work Phone: Comment on above: Negative <20 Weak po sitive 20 - 39 Moderate positive 40 - 59 Strong positive >59Performed at: [facility] [id number] Director: Shara Gilman MD, Phone: [phone] Serum hepatitis B virus surf kathleen antibody IgG detectionon 06-15-2021 HBV surface IgG Ql (S) Non-Reactive [facility] Work Phone: Comment on above: Non Reactive: Incons istent with immunity less than <10 mIU/mL Reactive: Consistent with immunity greater than or equal to 10 mIU/mL Serum or plasma C reactive p rotein measurement (mass/volume)on 06-15-2021 CRP [Mass/Vol] 27.40 mg/L 0.0-3.0 [facility] Work Phone: Comment on above: C-Reactive Protein ( CRP) provides useful information for thediagnosis, therapy and monitoring of inflammatory processesand associated diseases. For the evaluation of Relative Riskfor Cardiovascular Disease, a High Sensitivity CRP (HSCRP)should be ordered. Serum or plasma albumin bony urement (mass/volume)on 06-15-2021 Albumin [Mass/Vol] 3.3 g/dL 3.2-5.0 [facility] Work Phone: Serum or plasma albumin/glob ulin mass ratioon 06-15-2021 Albumin/Globulin [Mass ratio] 0.8 {ratio} 0.9-2.4 [facility] Work Phone: Serum or plasma calcium bony urement (mass/volume)on 06-15-2021 Calcium [Mass/Vol] 9.2 mg/dL 8.5-10.1 [facility] Work Phone: Serum or plasma creatinine m easurement (mass/volume)on 06-15-2021 Creatinine [Mass/Vol] 0.71 mg/dL 0.55-1.02 [facility] Work Phone: Comment on above: The validity of the calculated GFR & GFRAA in patients over 70 years has not been determined. Clinical correlation is essential. Serum or plasma urea nitroge n measurement (mass/volume)on 06-15-2021 Urea nitrogen [Mass/Vol] 21 mg/dL 7-18 [facility] Work Phone: Serum rheumatoid factor dete ctionon 06-15-2021 Rheumatoid factor Ql (S) < 10.0 IU/mL <15 [facility] Work Phone: Thin prep Papanicolaou smear with manual screeningon 06-15-2021 Thin prep Papanicolaou smear with manual screening 18 U/L 15-37 [facility] Work Phone: Thin prep Papanicolaou smear with manual screening 6 5-15 [facility] Work Phone: Office Visiton 11-25-2016 Documentation of current medications (procedure) Done Invalid Interpretation Code [facility] [employer] Work Phone: Fall risk assessment No Invalid Interpretation Code [facility] [employer] Work Phone: Protein mass conc Done Invalid Interpretation Code [employer] [employer] Work Phone: Office Visit: [facility] 06-03-19 Documentation of current medications (procedure) Done Invalid Interpretation Code [employer] Work Phone: Fall risk assessment No Invalid Interpretation Code [facility] [employer] Work Phone: Office Visiton 12-03-2015 Dietary management education, guidance, and counseling (procedure) yes Invalid Interpretation Code [facility] [employer] Work Phone: Tobacco smoking status NHIS Never smoker Invalid Interpretation Code [facility] [employer] Work Phone: [phone] Tobacco use CPHS Never smoker Invalid Interpretation Code [employer] Work Phone: [phone] Replaced Document: Hilda HUNTER Observationson 06-04-2015 EKG QRS axis 31 deg Invalid Interpretation Code [facility] Work Phone: [phone] electrocardiogram interpretation Sinus Rhythm WITHIN NORMAL LIMITS Invalid Interpretation Code [employer] Work Phone: [phone] GE use only - for [employer] import when terms are not otherwise specified 410 ms Invalid Interpretation Code [employer] Work Phone: [phone] Interpretation Sinus Rhythm WITHIN NORMAL LIMITS Invalid Interpretation Code [employer] Work Phone: [phone] P [place] 43 deg Invalid Interpretation Code [employer] Work Phone: [phone] P wave axis, electrocardiogram 43 deg Invalid Interpretation Code [employer] Work Phone: [phone] TN Interval 176 ms Invalid Interpretation Code [employer] Work Phone: [phone] TN interval, electrocardiogram 176 ms Invalid Interpretation Code [employer] Work Phone: [phone] Pulse (Heart Rate) 66 /min Invalid Interpretation Code [facility] [employer] Work Phone: [phone] QRS axis, electrocardiogram 31 deg Invalid Interpretation Code [employer] Work Phone: [phone] QRS Duration 84 ms Invalid Interpretation Code [employer] Work Phone: [phone] QRS duration, electrocardiogram 84 ms Invalid Interpretation Code [employer] Work Phone: [phone] QT Interval new path ms Invalid Interpretation Code [employer] Work Phone: [phone] QT interval, electrocardiogram new path ms Invalid Interpretation Code [employer] Work Phone: [phone] QTc [place] 410 ms Invalid Interpretation Code [employer] Work Phone: [phone] T [place] 55 deg Invalid Interpretation Code [employer] Work Phone: [phone] T wave axis, electrocardiogram 55 deg Invalid Interpretation Code [employer] Work Phone: [phone] Clinical Lists Updateon 05-06 Left ventricular Ejection fraction 65 % Invalid Interpretation Code [employer] Work Phone: Clinical Lists Update: Michelle hanson 09-16-2014 Alanine aminotransferase (ALT) 32 U/L Invalid Interpretation Code [facility] Work Phone: [phone] Albumin 3.5 g/dL Invalid Interpretation Code [facility] Work Phone: [phone] Albumin/Globulin Ratio 0.9 {ratio} Invalid Interpretation Code [facility] Work Phone: [phone] Alkaline phosphatase (ALP) 63 U/L Invalid Interpretation Code [facility] Work Phone: [phone] ALP enzyme act/vol (Bld) 63 U/L Invalid Interpretation Code [facility] Work Phone: [phone] Anion gap 8 mmol/L Invalid Interpretation Code [facility] Work Phone: [phone] Anion gap 4 molar conc 8 Invalid Interpretation Code [facility] Work Phone: [phone] Aspartate aminotransferase (AST) 27 U/L Invalid Interpretation Code [facility] Work Phone: [phone] basophils as percent of blood leukocytes, manual count 0.3 % Invalid Interpretation Code [facility] Work Phone: [phone] Bilirubin (total) 0.40 mg/dL Invalid Interpretation Code [facility] Work Phone: [phone] BUN/Creatinine Ratio 17.5 mg/mg Invalid Interpretation Code [facility] Work Phone: [phone] Calcium 9.1 mg/dL Invalid Interpretation Code [facility] Work Phone: [phone] Chloride 103 mmol/L Invalid Interpretation Code [facility] Work Phone: [phone] CO2 27.0 mmol/L Invalid Interpretation Code [facility] Work Phone: [phone] CO2 ppres (BldV) 27.0 mmol/L Invalid Interpretation Code [facility] Work Phone: [phone] Creatinine 0.8 mg/dL Invalid Interpretation Code [facility] Work Phone: [phone] eosinophils as percent of blood leukocytes, manual count 2.5 % Invalid Interpretation Code [facility] Work Phone: [phone] Erythrocytes (RBC) 4.02 10*6/uL [facility] [employer] Work Phone: [phone] Globulin 3.7 g/dL Invalid Interpretation Code [employer] Work Phone: [phone] Glucose 86 mg/dL Invalid Interpretation Code [employer] Work Phone: [phone] Glucose mass conc 86 mg/dL Invalid Interpretation Code [employer] Work Phone: [phone] Hematocrit (HCT) 39.6 % Invalid Interpretation Code [employer] Work Phone: [phone] Hemoglobin (HGB) 13.1 g/dL Invalid Interpretation Code [employer] Work Phone: [phone] Lymphocytes/100 leukocytes 37.6 % Invalid Interpretation Code [employer] Work Phone: [phone] MCH 32.6 pg High [employer] Work Phone: [phone] MCHC 33.1 g/dL Invalid Interpretation Code [employer] Work Phone: [phone] MCV 98.5 fL Invalid Interpretation Code [employer] Work Phone: [phone] Monocytes/100 leukocytes 9.8 % Invalid Interpretation Code [employer] Work Phone: [phone] neutrophils, band form as percent of blood leukocytes, manual count 49.5 % Invalid Interpretation Code [employer] Work Phone: [phone] Platelets 242 10*3/mm3 Invalid Interpretation Code [employer] Work Phone: [phone] PMV by [place] 11.0 fL Invalid Interpretation Code [employer] Work Phone: [phone] Potassium 4.3 mmol/L Invalid Interpretation Code [employer] Work Phone: [phone] Protein 7.2 g/dL Invalid Interpretation Code [employer] Work Phone: [phone] RDW-CA 13.2 % Invalid Interpretation Code [employer] Work Phone: [phone] Sodium 138 mmol/L Invalid Interpretation Code [employer] Work Phone: [phone] Thyroid stimulating hormone (TSH) 2.28 u[iU]/mL Invalid Interpretation Code [employer] Work Phone: [phone] Urea nitrogen 14 mg/dL Invalid Interpretation Code [employer] Work Phone: [phone] WBC (Leukocytes) 4.0 10*3/uL Low [facility] Work Phone: [phone] Office Visit: [facility] 07-11-19 15 Tobacco smoking status NHIS Never Invalid Interpretation Code [facility] Work Phone: [phone] Office Visit: [facility] 06-18-19 15 Cholesterol 244 mg/dL Invalid Interpretation Code [facility] Work Phone: [phone] Coagulation tissue factor induced in platelet poor plasma 2.3 s Invalid Interpretation Code [facility] Work Phone: [phone] HDL Cholesterol 45 mg/dL Invalid Interpretation Code [facility] Work Phone: [phone] LDL Cholesterol 152 mg/dL Invalid Interpretation Code [facility] Work Phone: [phone] Triglyceride 237 mg/dL Invalid Interpretation Code [facility] Work Phone: [phone] Office Visiton 04-11-2014 cardiac risk group C Invalid Interpretation Code [facility] Work Phone: [phone] General cardiovascular disease 10Y risk [#] [place].D'Agostino N/A Invalid Interpretation Code [facility] Work Phone: [phone] Lab Report: PTon 07-20-2013 INR Coag RelTime (PPP) 1.7 {INR} Normal [facility] Work Phone: [phone] INR in blood by coagulation 1.7 {INR} Normal [facility] Work Phone: [phone] prothrombin time, actual/normal, ratio 18.8 SECONDS High 11.9-14.4 [facility] Work Phone: [phone] PTP 18.8 SECONDS High 11.9-14.4 [facility] Work Phone: [phone] Lab Report: [facility] - copyon specific gravity, urine 1.015 Normal 1.002-1.030 [facility] Work Phone: [phone] EKG Report: [place] [facility] Obse rvationson 03-16-2013 Pulse (Heart Rate) 412 ms Invalid Interpretation Code [facility] Work Phone: [phone] Lab Report: Ordered by Dr. Crow schulte 02-13-2013 very low density lipoproteins 27 mg/dL Invalid Interpretation Code [facility] Work Phone: Influenza virus A and B and SARS-CoV-2 (COVID-19) Ag panel - Upper respiratory specim SARS-CoV-2 (COVID-19) RNA ZACH+probe Ql (Resp) [facility] Work Phone: Vital Signs Date Time Vital Sign Value Performing Clinician Faci lity 11-14-2024 09:22-0400 Body height 157.48 cm Amadou Liu MD Work Phone: [facility] 11-14-2024 09:22-0400 Body mass index (BMI) [Ratio] 27.6 kg/m2 Amadou Liu MD Work Phone: [facility] 11-14-2024 09:22-0400 Body weight 68.49 kg Amadou Liu MD Work Phone: [facility] 11-14-2024 09:22-0400 Diastolic blood pressure 75 mm[Hg] Amadou Liu MD Work Phone: [facility] 11-14-2024 09:22-0400 Heart rate 64 /min Amadou Liu MD Work Phone: [facility] 11-14-2024 09:22-0400 Respiratory rate 16 /min Amadou Liu MD Work Phone: [facility] 11-14-2024 09:22-0400 Systolic blood pressure 183 mm[Hg] Amadou Liu MD Work Phone: [facility] 10-25-2024 00:10-0400 Body temperature 97.8 [degF] Amadou Liu MD Work Phone: [facility] 10-25-2024 00:10-0400 Diastolic blood pressure 65 mm[Hg] Amadou Liu MD Work Phone: [facility] 10-25-2024 00:10-0400 Heart rate 61 /min Amadou Liu MD Work Phone: [facility] 10-25-2024 00:10-0400 Respiratory rate 16 /min Amadou Liu MD Work Phone: [facility] 10-25-2024 00:10-0400 SaO2% (BldA) [Mass fraction] 98 % Amadou Liu MD Work Phone: [facility] 10-25-2024 00:10-0400 Systolic blood pressure 203 mm[Hg] Amadou Liu MD Work Phone: [facility] 10-24-2024 20:27-0400 Body height 157.48 cm Amadou Liu MD Work Phone: [facility] 10-24-2024 20:27-0400 Body mass index (BMI) [Ratio] 28 kg/m2 Amadou Liu MD Work Phone: [facility] 10-24-2024 20:27-0400 Body weight 69.44 kg Amadou Lui MD Work Phone: [facility] 09-14-2024 09:04-0400 Diastolic blood pressure 69 mm[Hg] Amadou Liu MD Work Phone: [facility] 09-14-2024 09:04-0400 Heart rate 60 /min Amadou Liu MD Work Phone: [facility] 09-14-2024 09:04-0400 Systolic blood pressure 146 mm[Hg] Amadou Liu MD Work Phone: [facility] 09-14-2024 08:55-0400 Body height 157.48 cm Amadou Liu MD Work Phone: [facility] 09-14-2024 08:55-0400 Body mass index (BMI) [Ratio] 28.3 kg/m2 Amadou Liu MD Work Phone: [facility] 09-14-2024 08:55-0400 Body weight 70.3 kg Amadou Liu MD Work Phone: [facility] 09-14-2024 08:55-0400 Respiratory rate 18 /min Amadou Liu MD Work Phone: [facility] 08-23-2024 03:05-0400 Body temperature 97.7 [degF] Amadou Liu MD Work Phone: [facility] 08-23-2024 03:05-0400 Diastolic blood pressure 58 mm[Hg] Amadou Liu MD Work Phone: [phone] [place] [address] 08-23-2024 03:05-0400 Heart rate 65 /min Amadou Liu MD Work Phone: [facility] 08-23-2024 03:05-0400 Respiratory rate 16 /min Amadou Liu MD Work Phone: [phone] [address] 08-23-2024 03:05-0400 SaO2% (BldA) [Mass fraction] 98 % Amadou Liu MD Work Phone: [phone] [place] [address] 08-23-2024 03:05-0400 Systolic blood pressure 139 mm[Hg] Amadou Liu MD Work Phone: [phone] [place] [address] 08-23-2024 00:32-0400 Body height 157.48 cm Amadou Liu MD Work Phone: [phone] [address] 08-23-2024 00:32-0400 Body mass index (BMI) [Ratio] 28.3 kg/m2 Amadou iLu MD Work Phone: [phone] [address] 08-23-2024 00:32-0400 Body weight 70.1 kg Amadou Liu MD Work Phone: [facility] 06-21-2024 08:41-0400 Body height 157.48 cm Amadou Liu MD Work Phone: [phone] [place] [address] 06-21-2024 08:41-0400 Body mass index (BMI) [Ratio] 28.1 kg/m2 Amadou Liu MD Work Phone: [phone] [address] 06-21-2024 08:41-0400 Body weight 69.85 kg Amadou Liu MD Work Phone: [phone] [address] 06-21-2024 08:41-0400 Diastolic blood pressure 89 mm[Hg] Amadou Liu MD Work Phone: [facility] 06-21-2024 08:41-0400 Heart rate 65 /min Amadou Liu MD Work Phone: [facility] 06-21-2024 08:41-0400 Respiratory rate 16 /min Amadou Liu MD Work Phone: [facility] 06-21-2024 08:41-0400 Systolic blood pressure 206 mm[Hg] Amadou Liu MD Work Phone: [facility] 06-05-2024 11:36-0400 Body height 157.48 cm Amadou Liu MD Work Phone: [facility] 06-05-2024 11:36-0400 Body mass index (BMI) [Ratio] 28.5 kg/m2 Amadou Liu MD Work Phone: [facility] 06-05-2024 11:36-0400 Body weight 70.76 kg Amadou Liu MD Work Phone: [facility] 06-05-2024 11:36-0400 Diastolic blood pressure 82 mm[Hg] Amadou Liu MD Work Phone: [facility] 06-05-2024 11:36-0400 Heart rate 66 /min Amadou Liu MD Work Phone: [facility] 06-05-2024 11:36-0400 Respiratory rate 16 /min Amadou Liu MD Work Phone: [facility] 06-05-2024 11:36-0400 Systolic blood pressure 176 mm[Hg] Amadou Liu MD Work Phone: [facility] 02-22-2024 10:30-0500 Body mass index (BMI) [Ratio] 27.6 kg/m2 Amadou Liu MD Work Phone: [facility] 02-22-2024 10:30-0500 Body weight 68.49 kg Amadou Liu MD Work Phone: [facility] 02-22-2024 10:30-0500 Diastolic blood pressure 80 mm[Hg] Amadou Liu MD Work Phone: [facility] 02-22-2024 10:30-0500 Heart rate 66 /min Amadou Liu MD Work Phone: [facility] 02-22-2024 10:30-0500 Respiratory rate 16 /min Amadou Liu MD Work Phone: [facility] 02-22-2024 10:30-0500 SaO2% (BldA) [Mass fraction] 96 % Amadou Liu MD Work Phone: [facility] 02-22-2024 10:30-0500 Systolic blood pressure 124 mm[Hg] Amadou Liu MD Work Phone: [facility] 01-23-2024 05:59-0500 Diastolic Blood Pressure Non-Invasive 73 mm[Hg] MARIANNE PINEDA DO [facility] 01-23-2024 05:59-0500 Heart rate 60 /min MARIANNE PINEDA DO [facility] 01-23-2024 05:59-0500 Respiratory rate 16 /min MARIANNE PINEDA DO [facility] 01-23-2024 05:59-0500 Systolic Blood Pressure Non-Invasive 163 mm[Hg] MARIANNE PINEDA DO [facility] 01-23-2024 04:16-0500 Diastolic Blood Pressure Non-Invasive 79 mm[Hg] MARIANNE PINEDA DO [facility] 01-23-2024 04:16-0500 Heart rate 59 /min MARIANNE PINEDA DO [facility] 01-23-2024 04:16-0500 Respiratory rate 16 /min MARIANNE PINEDA DO [facility] 01-23-2024 04:16-0500 Systolic Blood Pressure Non-Invasive 158 mm[Hg] MARIANNE PINEDA DO [facility] 01-23-2024 03:33-0500 Diastolic Blood Pressure Non-Invasive 98 mm[Hg] MARIANNE PINEDA DO [facility] 01-23-2024 03:33-0500 Heart rate 62 /min MARIANNE PINEDA DO [facility] 01-23-2024 03:33-0500 Respiratory rate 17 /min MARIANNE PINEDA DO [facility] 01-23-2024 03:33-0500 Systolic Blood Pressure Non-Invasive 159 mm[Hg] MARIANNE PINEDA [employer] [facility] 01-23-2024 02:32-0500 Body temperature 97.7 [degF] MARIANNE PINEDA [employer] [facility] 01-23-2024 02:32-0500 Body weight 69.8 kg MARIANNE PINEDA [employer] [facility] 01-23-2024 02:32-0500 Heart rate 74 /min MARIANNE PINEDA [employer] [facility] 01-23-2023 10:58-0500 Diastolic blood pressure 82 mm[Hg] No Primary Care Physician [facility] 01-23-2023 10:58-0500 Heart rate 72 /min No Primary Care Physician [facility] 01-23-2023 10:58-0500 Respiratory rate 14 /min No Primary Care Physician [facility] 01-23-2023 10:58-0500 SaO2% (BldA) [Mass fraction] 99 % No Primary Care Physician [facility] 01-23-2023 10:58-0500 Systolic blood pressure 174 mm[Hg] No Primary Care Physician [facility] 01-23-2023 08:46-0500 Body height 157.48 cm No Primary Care Physician [facility] 01-23-2023 08:46-0500 Body mass index (BMI) [Ratio] 30.5 kg/m2 No Primary Care Physician [facility] 01-23-2023 08:46-0500 Body temperature 96.5 [degF] No Primary Care Physician [facility] 01-23-2023 08:46-0500 Body weight 75.7 kg No Primary Care Physician [facility] 12-06-2022 09:18-0400 Diastolic blood pressure 84 mm[Hg] No Primary Care Physician [facility] 12-06-2022 09:18-0400 Systolic blood pressure 142 mm[Hg] No Primary Care Physician [facility] 12-06-2022 08:50-0400 Body mass index (BMI) [Ratio] 30.3 kg/m2 No Primary Care Physician [facility] 12-06-2022 08:50-0400 Body weight 75.29 kg No Primary Care Physician [facility] 12-06-2022 08:50-0400 Heart rate 81 /min No Primary Care Physician [facility] 12-06-2022 08:50-0400 Respiratory rate 18 /min No Primary Care Physician [facility] 12-06-2022 08:50-0400 SaO2% (BldA) [Mass fraction] 98 % No Primary Care Physician [facility] 03-09-2022 22:59-0500 Diastolic blood pressure 93 mm[Hg] No Primary Care Physician [facility] Work Phone: 03-09-2022 22:59-0500 Heart rate 88 /min No Primary Care Physician [facility] Work Phone: 03-09-2022 22:59-0500 Respiratory rate 16 /min No Primary Care Physician [facility] Work Phone: 03-09-2022 22:59-0500 SaO2% (BldA) [Mass fraction] 96 % No Primary Care Physician [facility] Work Phone: 03-09-2022 22:59-0500 Systolic blood pressure 184 mm[Hg] No Primary Care Physician [facility] Work Phone: 03-09-2022 22:47-0500 Body height 157.48 cm No Primary Care Physician [facility] Work Phone: 03-09-2022 22:47-0500 Body mass index (BMI) [Ratio] 30.5 kg/m2 No Primary Care Physician [facility] Work Phone: 03-09-2022 22:47-0500 Body temperature 96.7 [degF] No Primary Care Physician [facility] Work Phone: 03-09-2022 22:47-0500 Body weight 75.74 kg No Primary Care Physician [facility] Work Phone: 12-09-2021 11:00-0400 Body mass index (BMI) [Ratio] 30.2 kg/m2 No Primary Care Physician [facility] Work Phone: 12-09-2021 11:00-0400 Body weight 74.84 kg No Primary Care Physician [facility] Work Phone: 12-09-2021 11:00-0400 Diastolic blood pressure 77 mm[Hg] No Primary Care Physician [facility] Work Phone: 12-09-2021 11:00-0400 Heart rate 82 /min No Primary Care Physician [facility] Work Phone: 12-09-2021 11:00-0400 Respiratory rate 16 /min No Primary Care Physician [facility] Work Phone: 12-09-2021 11:00-0400 SaO2% (BldA) [Mass fraction] 97 % No Primary Care Physician [facility] Work Phone: 12-09-2021 11:00-0400 Systolic blood pressure 146 mm[Hg] No Primary Care Physician [facility] Work Phone: 11-25-2016 10:16-0400 BMI (Body [...] 10:16-0400 Respiratory Rate 18 /min Nallely Adams [facility] Work Phone: 11-25-2016 10:16-0400 Weight 78.67 kg Nallely Adams [facility] Work Phone: 06-02-2016 11:20-0400 BMI (Body Mass Index) 33.25 kg/m2 Shirley Jewell RN [facility] Work Phone: 06-02-2016 11:20-0400 BP Diastolic 70 mm[Hg] Shirley Jewell RN [facility] Work Phone: 06-02-2016 11:20-0400 BP Systolic 110 mm[Hg] Shirley Jewell RN [facility] Work Phone: 06-02-2016 11:20-0400 Height 157.48 cm Shirley Jewell RN [facility] Work Phone: 06-02-2016 11:20-0400 Pulse (Heart Rate) 64 /min Shirley Jewell RN [facility] Work Phone: 06-02-2016 11:20-0400 Respiratory Rate 16 /min Shirley Jewell RN [facility] Work Phone: 06-02-2016 11:20-0400 Weight 82.46 kg Shirley Jewell RN [facility] Work Phone: 03-10-2016 15:15-0500 BSA (Body Surface Area) 1.84 m2 Shirley Jewell RN [facility] Work Phone: 06-04-2015 08:51-0400 Heart rate 66 /min Nallely Bryan [facility] Work Phone: 10-02-2014 08:53-0400 Body Temperature 97.7 [degF] Shirley Jewell RN [facility] Work Phone: 10-02-2014 08:53-0400 Pulse Oximetry 96 % Shirley Jewell RN [facility] Work Phone: 07-23-2013 12:31-0400 Height 157.48 cm Shirley Jewell RN [facility] [facility] Work Phone: 07-23-2013 12:31-0400 Weight 85 kg Shirley Jewell RN [facility] [employer] [facility] Work Phone: 03-16-2013 14:28-0500 Heart rate 412 ms Nallely Adams [facility] [employer] Work Phone: Encounters Encounter Date Encounter Type Care Provider Facility Start: 11-14-2024 End: 11-14-2024 Patient encounter procedure Anali MENDEZ -[facility] [employer] [facility] Work Phone: Start: 11-14-2024 End: 11-14-2024 ambulatory Amadou Liu MD Work Phone: -[facility] Start: 11-14-2024 End: 11-14-2024 ambulatory [facility] Facility:[facility] Start: 10-24-2024 End: 10-25-2024 Emergency department patient visit Amadou Liu MD Work Phone: -Emergency Department Work Phone: Start: 09-25-2024 Non-patient / Non-visit Dr. Juan Antonio Alaniz MD -[facility] Start: 09-25-2024 End: 09-25-2024 ambulatory Amadou Liu MD Work Phone: -[facility]ovascular Services Start: 09-25-2024 End: 09-25-2024 Patient encounter procedure Anali Daniel PA -Cardiovascular Services Work Phone: Start: 09-25-2024 End: 09-25-2024 ambulatory [facility] Facility:[facility] Start: 09-14-2024 End: 09-14-2024 Patient encounter procedure Anali MENDEZ -[facility] Work Phone: Start: 09-14-2024 End: 09-14-2024 ambulatory Amadou Liu MD Work Phone: -[facility] Start: 08-23-2024 End: 08-23-2024 Emergency department patient visit Amadou Liu MD Work Phone: -Emergency Department Work Phone: Start: 07-17-2024 Non-patient / Non-visit Dr. Octavio Lopez MD -[facility] Start: 07-17-2024 End: 07-17-2024 ambulatory Amadou Liu MD Work Phone: [facility] Work Phone: Start: 07-17-2024 End: 07-17-2024 Patient encounter procedure Anali MENDEZ -[facility] Work Phone: Start: 07-17-2024 End: 07-17-2024 ambulatory Chalon Calos Facility:[facility] Start: 06-21-2024 End: 06-21-2024 Patient encounter procedure Anali MENDEZ -[facility] Work Phone: Start: 06-21-2024 End: 06-21-2024 ambulatory Chalon Calos Facility:[facility] Start: 06-05-2024 End: 06-05-2024 Patient encounter procedure Anali MENDEZ -[facility] Work Phone: Start: 06-05-2024 End: 06-05-2024 ambulatory Amadou Liu MD Work Phone: [facility] Work Phone: Start: 06-05-2024 End: 06-05-2024 ambulatory Chalon Calos Facility:[facility] Start: 03-12-2024 Non-patient / Non-visit Dr. Octavio Lopez MD -[facility] Start: 03-12-2024 End: 03-12-2024 ambulatory Amadou Liu MD Work Phone: [facility] Work Phone: Start: 03-12-2024 End: 03-12-2024 Patient encounter procedure Amadou Liu MD Work Phone: -Cardiovascular Services Work Phone: Start: 03-12-2024 End: 03-12-2024 ambulatory JOEL VARMA Facility:[facility] Start: 02-24-2024 End: 02-24-[address] Amadou Liu MD -Laboratory, Specimen Work Phone: Start: 02-24-2024 End: 02-24-[facility] Start: 02-22-2024 End: 02-22-2024 Patient encounter procedure Anali Daniel PA -[facility] Work Phone: Start: 02-22-2024 End: 02-22-2024 ambulatory Amadou Calos Facility:[facility] Start: 02-13-2024 Non-patient / Non-visit Dr. Octavio Lopez MD -[facility] Start: 02-13-2024 ambulatory Amadou Liu Facility:[facility] Start: 02-04-2024 Patient encounter status Amadou Liu MD Work Phone: [facility] Start: 02-04-2024 End: 02-04-2024 Emergency department patient visit Amadou [facility] Facility:[facility] Start: 01-23-2024 End: 01-23-2024 ambulatory Amadou [facility] Facility:[facility] Start: 01-23-2024 End: 01-23-2024 Emergency department patient visit MARIANNE Kaleigh MIRIAM KO [facility] Start: 01-10-2024 End: 01-10-2024 Emergency department patient visit Hiram Bill Facility:[facility] Start: 01-07-2024 Emergency department patient visit [place]IT [place] Facility:[facility] Start: 01-06-2024 End: 01-06-2024 ambulatory Rc Ramirez APRN.[employer]GET[employer] Work Phone: Cardiology Start: 01-06-2024 End: 01-06-2024 Patient encounter procedure Rc Ramirez [employer]GET[employer] Work Phone: Cardiology Comment on above: TAVR Consult Start: 12-26-2023 End: 12-26-2023 Telephone encounter Whit George MD Work Phone: Cardiology Comment on above: Received Outside Med ical Records Start: 12-26-2023 ambulatory WHIT GEORGE [facility] Start: 12-23-2023 End: 12-23-2023 Telephone encounter Cardiac Surgeon - [facility] Start: 12-23-2023 ambulatory WHIT [facility] Start: 12-21-2023 End: 12-21-2023 ambulatory Chalon Calos Facility:[facility] Start: 12-21-2023 ambulatory [facility] Start: 12-21-2023 End: 12-21-[address] [facility] Facility:[facility] Start: 01-23-2023 End: 01-23-2023 Emergency department patient visit No Primary Care Physician [facility]-Emergency Department Work Phone: Start: 12-15-2022 Non-patient / Non-visit No Primary Care Physician [facility] Work Phone: Start: 12-15-2022 Non-patient / Non-visit No Primary Care Physician [facility] Start: 12-15-2022 End: 12-15-2022 [facility] encounter procedure [facility] Start: 12-06-2022 End: 12-06-2022 Patient encounter procedure No Primary Care Physician [facility] Work Phone: Start: 03-09-2022 End: 03-10-2022 Emergency department patient visit No Primary Care Physician [facility]-Emergency Department Start: 12-28-2021 Non-patient / Non-visit No [facility] Start: 12-28-2021 End: 12-28-2021 Patient encounter procedure No Primary Care Physician [facility]-Cardiovascular Services Start: 12-09-2021 End: 12-09-2021 Patient encounter procedure No Primary Care Physician [facility] Start: 06-15-2021 End: 06-15-2021 Patient encounter procedure [facility]-Laboratory, [place] Procedures Date Procedure Procedure Detail Performing Clinician [...] JEVON Lopez MD Start: 06-04-2015 End: 06-04-2015 [employer]ENTER [employer] Anali Daniel PA-C Work Phone: Start: 06-04-2015 End: 06-04-2015 Ecg routine ecg w/least 12 lds w/i&r Anali Daniel PA-C Work Phone: Start: 06-04-2015 End: 06-04-2015 Follow Up Appt 6 months Anali cleary PA-C Work Phone: Start: 06-04-2015 End: 06-04-2015 [employer]TACT CENTER ASSOCIATE Anali Daniel PA-C Work Phone: Start: 06-04-2015 [...] APRN.CNP Work Phone: Start: 07-10-2014 End: 07-10-2014 [employer]TACT CENTER ASSOCIATE Anali Daniel PA-C Work Phone: Start: 07-10-2014 End: 07-11-2014 Documentation of current medications Anali Daniel PA-C Work Phone: Start: 07-10-2014 End: 07-10-2014 Follow Up Appt 4 months Anali cleary PA-C Work Phone: Start: 07-10-2014 End: 07-10-2014 Follow Up Appt Other Anali sutherland PA-C Work Phone: Start: 07-10-2014 End: 07-10-2014 [employer]TACT CENTER ASSOCIATE Anali Daniel PA-C Work Phone: Start: 07-10-2014 End: 07-11-2014 Documentation of current medications Anali Daniel PA-C Work Phone: Start: 07-10-2014 End: 07-10-2014 Follow Up Appt 4 months Anali cleary PA-C Work Phone: Start: 07-10-2014 End: 07-10-2014 Follow Up Appt Other Anali ustherland PA-C Work Phone: Start: 07-03-2014 End: 07-04-2014 [...] Octavio Lopez MD Start: 03-16-2013 End: 03-16-2013 CONTACT CENTER ASSOCIATESamir Daniel PA-C Work Phone: Start: 03-16-2013 End: [...] stent placement Anali MENDEZ Comment on above: JOT-SLY-Atta-Mid RCA w/ 4.0 x 18 mm Penta Stent 06/2001, 2 stents to RCA 02/08/24 at [facility] History of cataract extraction Hx of cataract surgery Amadou Liu MD Work Phone: SARS-CoV-2 & FLU Ant igen (Rapid) No Primary Care Physician Plan of Treatment Date Care Activity Detail Author Start: 11-14-2024 End: 11-14-2024 Evaluation of diagnostic study results [facility] Start: 10-25-2024 [facility] Start: 10-24-2024 [facility] Start: 08-23-2024 [facility] Start: 08-23-2024 [facility] Start: 11-06-2023 Covid-19 Vaccine ( season) Covid-19 Vaccine ( season) [facility] Start: 11-06-2023 Influenza vaccination Influenza Vaccine (#1) [facility] Start: 03-07-2023 Advance Directive Discussion Advance Directive Discussion [facility] Start: 01-23-2023 [facility] Start: 01-23-2023 [facility] Start: 08-26-2017 Diabetes Screening Diabetes Screening [facility] Start: 06-01-2017 End: 06-01-2017 Appointment [facility] Work Phone: Start: 11-25-2016 End: 11-25-2016 Echocardiography Echocardiogram (complete) [facility] Work Phone: Start: 11-25-2016 End: 11-25-2016 Follow Up Appt 6 months Follow Up Appt 6 months [facility] Work Phone: Start: 11-25-2016 End: 11-25-2016 MMM MMM [facility] Work Phone: Start: 11-25-2016 End: 12-20-2016 Nuclear stress test -Lexiscan Nuclear stress test -Lexiscan [facility] Work Phone: Start: 11-25-2016 End: 11-25-2016 Appointment Appointment [facility] Work Phone: Start: 11-25-2016 End: 11-25-2016 Echocardiography Echocardiogram (complete) [facility] Work Phone: Start: 11-25-2016 End: 11-25-2016 Follow Up Appt 6 months Follow Up Appt 6 months [facility] Work Phone: Start: 11-25-2016 End: 11-25-2016 MMM MMM [facility] Work Phone: Start: 11-25-2016 End: 11-25-2016 Nuclear stress test -Lexiscan Nuclear stress test -Lexiscan [facility] Work Phone: Start: 06-02-2016 End: 06-02-2016 CONTACT CENTER ASSOCIATE CONTACT CENTER ASSOCIATE [facility] Work Phone: Start: 06-02-2016 End: 06-02-2016 Follow Up Appt 6 months Follow Up Appt 6 months [facility] Work Phone: Start: 06-02-2016 End: 06-02-2016 CONTACT CENTER ASSOCIATE CONTA[employer] CENTER ASSOCIATE [facility] Work Phone: Start: 06-02-2016 End: 06-02-2016 Follow Up Appt 6 months Follow Up Appt 6 months [facility] Work Phone: Start: 03-10-2016 End: 05-24-2016 Ambulatory BP Monitor 24 HR Ambulatory BP Monitor 24 HR [facility] Work Phone: Start: 03-10-2016 End: [...] 6 months Follow Up Appt 6 months [facility] Work Phone: Start: 12-03-2015 End: 12-03-2015 MMM MMM [facility] Work Phone: Start: 12-03-2015 End: 12-03-2015 Follow Up Appt 6 months Follow Up Appt 6 months [facility] Work Phone: Start: 12-03-2015 End: 12-03-2015 MMM MMM [facility] Work Phone: Start: 06-04-2015 End: 06-04-2015 CONTACT CENTER ASSOCIATE CONTACT CENTER ASSOCIATE [facility] Work Phone: Start: 06-04-2015 End: 06-04-2015 Ecg routine ecg w/least 12 lds w/i&r EKG (In office) [facility] Work Phone: Start: 06-04-2015 End: 06-04-2015 Follow Up Appt 6 months Follow Up Appt 6 months [facility] Work Phone: Start: 06-04-2015 End: 06-04-2015 CONTACT CENTER ASSOCIATE CONTACT CENTER ASSOCIATE [facility] Work Phone: Start: 06-04-2015 End: 06-04-2015 Electrocardiogram, complete EKG (In office) [facility] Work Phone: Start: 06-04-2015 End: 06-04-2015 Follow Up Appt 6 months Follow Up Appt 6 months [facility] Work Phone: Start: 12-04-2014 End: 12-04-2014 Follow Up Appt 6 months Follow Up Appt 6 months [facility] Work Phone: Start: 12-04-2014 End: 12-04-2014 MMM MMM [facility] Work Phone: Start: 12-04-2014 End: 12-04-2014 Follow Up Appt 6 months Follow Up Appt 6 months [facility] Work Phone: Start: 12-04-2014 End: 12-04-2014 MMM MMM [facility] Work Phone: Start: 07-10-2014 End: 07-10-2014 CONTACT CENTER ASSOCIATE CONTACT CENTER ASSOCIATE [facility] Work Phone: Start: 07-10-2014 End: 07-10-2014 Follow Up Appt 4 months Follow Up Appt 4 months [facility] Work Phone: Start: 07-10-2014 End: 07-10-2014 Follow Up Appt Other Follow Up Appt Other [facility] Work Phone: Start: 07-10-2014 End: 07-10-2014 CONTACT CENTER ASSOCIATE CONTACT CENTER ASSOCIATE [facility] Work Phone: Start: 07-10-2014 End: 07-10-2014 Follow Up Appt 4 months Follow Up Appt 4 months [facility] Work Phone: Start: 07-10-2014 End: 07-10-2014 Follow Up Appt Other Follow Up Appt Other [facility] Work Phone: Start: 07-03-2014 End: 07-03-2014 Follow Up Appt 3 months Follow Up Appt 3 months [facility] Work Phone: Start: 07-03-2014 End: 07-03-2014 Pulmonary Function Test - complete Pulmonary Function Test - complete [facility] Work Phone: Start: 07-03-2014 End: 07-03-2014 Follow Up Appt 3 months Follow Up Appt 3 months [facility] Work Phone: Start: 07-03-2014 End: 07-03-2014 Pulmonary Function Test - complete Pulmonary Function Test - complete [facility] Work Phone: Start: 04-11-2014 End: 04-11-2014 Follow Up Appt 3 months Follow Up Appt 3 months [facility] Work Phone: Start: 04-11-2014 End: 04-11-2014 MMM MMM [facility] Work Phone: Start: 04-11-2014 End: 04-11-2014 Follow Up Appt 3 months Follow Up Appt 3 months [facility] Work Phone: Start: 04-11-2014 End: 04-11-2014 MMM MMM [facility] Work Phone: Start: 08-02-2013 End: 08-02-2013 Follow Up Appt Other Follow Up Appt Other [facility] Work Phone: Start: 08-02-2013 End: 08-02-2013 Follow Up Appt Other Follow Up Appt Other [facility] Work Phone: Start: 07-23-2013 End: 07-04-2014 *Hepatic Function Panel *Hepatic Function Panel [facility] Work Phone: Start: 07-23-2013 End: 07-04-2014 *Hepatic Function Panel *Hepatic Function Panel [facility] Work Phone: Start: 07-20-2013 End: 07-22-2013 *BMP *BMP [facility] Work Phone: Start: 07-20-2013 End: 07-22-2013 CBC W Auto Differential panel - Blood *CBC without Diff [facility] Work Phone: Start: 07-20-2013 End: 07-04-2014 Chest x-ray X-Ray, Chest, PA & Lateral [facility] Work Phone: Start: 07-20-2013 End: 07-20-2013 Ecg routine ecg w/least 12 lds w/i&r EKG (In office) [facility] Work Phone: Start: 07-20-2013 End: 07-20-2013 Echocardiography Echocardiogram (complete) [facility] Work Phone: Start: 07-20-2013 End: 07-22-2013 INR Coag RelTime (PPP) *PT/INR [facility] Work Phone: Start: 07-20-2013 End: 07-20-2013 Left Heart Cath Left Heart Cath [facility] Work Phone: Start: 07-20-2013 End: 07-22-2013 *BMP *BMP [facility] Work Phone: Start: 07-20-2013 End: 07-22-2013 CBC W Auto Differential panel - Blood *CBC without Diff [facility] Work Phone: Start: 07-20-2013 End: 07-04-2014 Chest x-ray X-Ray, Chest, PA & Lateral [facility] Work Phone: Start: 07-20-2013 End: 07-22-2013 Coagulation factor induced.INR assay in platelet poor plasma *PT/INR [facility] Work Phone: Start: 07-20-2013 End: 07-20-2013 Echocardiography Echocardiogram (complete) [facility] Work Phone: Start: 07-20-2013 End: 07-20-2013 Electrocardiogram, complete EKG (In office) [facility] Work Phone: Start: 07-20-2013 End: 07-20-2013 Left Heart Cath Left Heart Cath [facility] Work Phone: Start: 03-16-2013 End: 03-16-2013 CONTACT CENTER ASSOCIATE CONTACT CENTER ASSOCIATE [facility] Work Phone: Start: 03-16-2013 End: 03-16-2013 Follow Up Appt 1 year Follow Up Appt 1 year [facility] Work Phone: Start: 03-16-2013 End: 03-16-2013 Follow Up Appt Other Follow Up Appt Other [facility] Work Phone: Start: 03-16-2013 End: 03-16-2013 CONTACT CENTER ASSOCIATE CONTACT CENTER ASSOCIATE [facility] Work Phone: Start: 03-16-2013 End: 03-16-2013 Follow Up Appt 1 year Follow Up Appt 1 year [facility] Work Phone: Start: 03-16-2013 End: 03-16-2013 Follow Up Appt Other Follow Up Appt Other [facility] Work Phone: Start: 12-29-2012 End: 12-29-2012 Follow Up Appt 6 months Follow Up Appt 6 months [facility] Work Phone: Start: 12-29-2012 End: 12-29-2012 MMM MMM [facility] Work Phone: Start: 12-29-2012 End: 12-29-2012 Follow Up Appt 6 months Follow Up Appt 6 months [facility] Work Phone: Start: 12-29-2012 End: 12-29-2012 MMM MMM [facility] Work Phone: Start: 05-17-2012 End: 08-02-2013 *Hepatic Function Panel *Hepatic Function Panel [facility] Work Phone: Start: 05-17-2012 End: 08-02-2013 Lipid 1996 panel *Lipid Profile [facility] Work Phone: Start: 05-17-2012 End: 08-02-2013 *Hepatic Function Panel *Hepatic Function Panel [facility] Work Phone: Start: 05-17-2012 End: 08-02-2013 Lipid panel [AGGREGATE] *Lipid Profile [facility] Work Phone: Start: 02-21-2012 End: 02-21-2012 Follow Up Appt 1 year Follow Up Appt 1 year [facility] Work Phone: Start: 02-21-2012 End: 02-21-2012 Follow Up Appt 1 year Follow Up Appt 1 year [facility] Work Phone: Start: 02-15-2011 End: 02-15-2011 Follow Up Appt 1 year Follow Up Appt 1 year [facility] Work Phone: Start: 02-15-2011 End: 02-15-2011 Follow Up Appt 1 year Follow Up Appt 1 year [facility] Work Phone: Start: 2010 RSV Vaccine (1 - 1-dose 75+ series) RSV Vaccine (1 - 1-dose 75+ series) [facility] Start: 2000 Pneumococcal Vaccine: 65+ (1 of 1 - PCV) Pneumococcal Vaccine: 65+ (1 of 1 - PCV) [facility] Start: 2000 Screening for osteoporosis Bone Density Screening [facility] Start: 1985 Shingrix Vaccine (1 of 2) Shingrix Vaccine (1 of 2) [facility] Start: 1954 Urine microalbumin profile DTaP,Tdap,Td Vaccine (1 - Tdap) [facility] Start: 1953 Anxiety Screening Anxiety Screening [facility] Start: 1953 Depression Screening Depression Screening [facility] Comprehensive metabo lic 1999 panel - Serum or Plasma [facility] Lipid 1995 panel - S jerardo or Plasma [facility] Work Phone: Lipid 1995 panel - S jerardo or Plasma [facility] Lipid 1995 panel - S jerardo or Plasma [facility] Patient Education [facility] Work Phone: Patient referral [facility] Work Phone: Renal artery [facility] Payers Date Payer Category Payer Self-pay [id number] 2023 Unknown [id number] 2000 Medicare [id number] 2000 Medicare [id number] [facility] [id number] 1935 Unknown [id number] 2.16.8 [id number] Unknown [id number] 2.16.8 40.1.414207.3.579.2.462 Unknown [id number] 2.16.8 40.1.372137.3.579.2.462 Unknown [id number] 2.16.8 40.1.896093.3.579.2.462 Unknown [id number] 2.16.8 40.1.639667.3.579.2.462 Unknown [id number] 2.16.8 40.1.384091.3.579.2.462 Unknown [id number] 2.16.8 40.1.179264.3.579.2.462 Unknown [id number] 2.16.8 40.1.225911.3.579.2.462 Unknown [id number] 2.16.8 40.1.190828.3.579.2.462 Unknown [id number] 2.16.8 40.1.345676.3.579.2.462 Unknown [id number] 2.16.8 40.1.570774.3.579.2.462 Unknown [id number] 2.16.8 40.1.097254.3.579.2.462 Unknown [id number] 2.16.8 40.1.866454.3.579.2.462 Unknown [id number] 2.16.8 40.1.811059.3.579.2.462 Unknown [id number] 2.16.8 40.1.127973.3.579.2.462 Unknown [id number] 2.16.8 40.1.400732.3.579.2.462 Unknown [id number] 2.16.8 40.1.737133.3.579.2.462 Unknown [id number] 2.16.8 40.1.076390.3.579.2.462 Unknown [id number] 2.16.8 40.1.269740.3.579.2.462 Unknown [id number] 2.16.8 40.1.488992.3.579.2.462 Unknown [id number] 2.16.8 40.1.491861.3.579.2.462 Unknown [id number] 2.16.8 40.1.231911.3.579.2.462 Unknown [id number] 2.16.8 40.1.713081.3.579.2.462 Unknown [id number] 2.16.8 40.1.470590.3.579.2.462 Social History Date Type Detail Facility Start: 01-12-2021 End: 01-23-2023 Tobacco smoking status NHIS Unknown if ever smoked [facility] Start: 02-28-2020 With Family [facility] Start: 12-24-2019 Non-smoker [facility] Start: 1935 Sex Assigned At Female [facility] Start: 1935 Sex assigned at Not on file [facility] Gender identity Not on file [facility] Start: 08-28-2014 End: 10-24-2024 Tobacco smoking status NHIS Never smoked tobacco [facility] Start: 08-28-2014 Tobacco use and exposure Smokeless tobacco non-user [facility] Start: 08-28-2014 Alcoholic beverage intake Current non-drinker of alcohol (finding) [facility] Start: 06-11-2024 End: 06-11-2024 Sex Female (finding) [facility] Goals Date Patient Goal Desired Activity /State Personal health goal Functional Status Date Assessment Result Facility 01-23-2024 Functional Status Room check performed [facility] Mental Status Date Assessment Result Facility 10-24-2024 Cognitive function Voice/Name [facility] Work Phone: 08-23-2024 Cognitive function Voice/Name [facility] Work Phone: 01-23-2024 Mental Status Oriented x 4 [facility] 01-23-2023 Cognitive function Level Of Cons ciousness Awake;Alert;Appropriate;Follow s Commands [facility] Work Phone: Clinical Notes 06-19-2001 to 10-25-2024 Note Date & Type Note Facility 10-25-2024 Discharge summary [facility] 10-24-2024 Radiology Diagnostic study note [facility] Imaging Services [address] [place], [place] [address] CTA Chest W/WO Contrast MR#: [id number] Acct: [id number] Name: GINA WORTHINGTON Rep #: [id number] : 1935 F 89 From: Galo Galarza MD PCP: Dr. Amadou Liu MD Status: REG ER Study:CTA Chest W/WO Contrast Date of Exam: 10/24/24 Exam# [id number] Ordering Dr: Steve Farnsworth DO PROCEDURE: CTA [...] pole of the right kidney. Reading Location: [facility] CC: Dr. Amadou Liu MD; Dr. Steve Farnsworth DO ~ Learning Support Resource Room Teacher: Signed [facility] 10-24-2024 Radiology Diagnostic study note [facility] Imaging Services [address] [place] [address] Chest 1 View (Portable) MR#: [id number] Acct: [id number] Name: GINA WORTHINGTON Rep #: [id number] : 1935 F 89 From: Kedar Cotto MD PCP: Dr. Amadou Liu MD Status: REG ER Study:Chest 1 View (Portable) Date of Exam: 10/24/24 Exam# [id number] Ordering Dr: Steve Farnsworth DO ADDENDUM by Dr. Daryl Cotto MD on 10/24/24 at 2157 Findings were communicated with the ordering physician Dr. Marvin Farnsworth 9:32 p.m.. 10/24/2024. Reading Location: [facility] 10/24/242156 Date cc: Dr. Amadou Liu MD; [...] be performed for further evaluation. Reading Location: [facility] CC: Dr. Amadou Liu MD; Dr. Steve Farnsworth DO ~ Learning Support Resource Room Teacher: Signed [facility] 10-24-2024 Discharge summary Note Date/Time October 25, 2024 12:22am [facility] Medical Records Department [address] [place] [address] Emergency Department Summary 10/24/24 MR#: [id number] Acct: [id number] Name: GINA WORTHINGTON Rep #:[id number] : 1935 89 From: Steve Witt PCP: [...] Recent Immobilization or Prior DVT or PE [facility] Medical History Anemia Back pain GERD (gastroesophageal reflux disease) Obesity Deep vein thrombosis Essential (primary) hypertension Nonrheumatic aortic (valve) stenosis Hyperlipidemia Atherosclerotic heart disease of [place] coronary artery without angina pectoris Home Medications [...] lesions of 80%. 2355: I spoke with grape picker Dr. Lopez agrees with starting Imdur will start at 60 mg with her elevated blood pressure. Patient states her nitroglycerin sublingual was out of date. I will refill this. She will follow-up with cardiology office. Return precautions. All questions were answered. Re-evaluation: stable Disposition discussed with patient/family/significant other: Patient and family Case discussed with consulting clinician: N/A This note was generated with [employer] dictation software. It may contain incorrectwords, spelling, [...] % (Auto) 65.6 Lymph % (Auto) 24.4 [place] % (Auto) 7.8 Eos % (Auto) 0.9 [...] be performed for further evaluation. Reading Location: [facility] Chest CTA 10/24/24 21:45 IMPRESSION: 1. No acute intrathoracic findings. No pulmonary arterial emboli. 2. Cardiomegaly. No thoracic aortic aneurysm or dissection. Moderate atherosclerotic disease. 3. Few small nonobstructive renal stones seen in the upper pole of the right kidney. Reading Location: [facility] Discharge Plan Triage Chief Complaint: Chest [...] - Anali Daniel PA [Med Staff - [facility] Practice Prof] - 1 Week Activity [...] with Anali in the office. Print Language: Maldivian Disposition Disposition: Home, Self Care What to do if you have Problems For any increased pain, shortness of breath, bleeding, nausea or vomiting, chestpain, or any unexpected problems, contact your Primary Care Provider. Call [facility] ([phone]) or report to the closest Emergency Room. Call 911 if necessary. 10/25/24 0022 <Electronically signed by Steve Witt> Cosigner Signature (if applicable): CC: Dr. Amadou Liu MD; ANDREA Wills ~ Signed [facility] Work Phone: 1(589) 466-689907-11-2025 Evaluation note* Diagnosis Onset Date Resolution Status Admit Date Deep vein thrombosis acute September 14, 2024 8:50am Essential (primary) hypertension chronic September 14, 2024 8:50am History of coronary artery stent placement June 19, 2001 chronic September 14, 2024 8:50am Hyperlipidemia chronic September 14, 2024 8:50am S/P TAVR (transcatheter aortic valve replacement) February 09, 2024 chronic Sep 8:50am [facility] Work Phone: 1(322) 911-924907-11-2025 Evaluation note* Diagnosis Onset Date Resolution Status [...] February 09, 2024 chronic Sep 2024 9:16am [facility] Work Phone: 1(457) 938-562004-01-2025 Evaluation note* Diagnosis Onset Date Resolution Status [...] 09, 2024 chronic Apr il 2024 8:21am [facility] Work Phone: 1(461) 544-339104-01-2025 Evaluation note* Diagnosis Onset Date Resolution Status [...] replacement) February 09, 2024 chronic Sep 8:50am [facility] [facility] Work Phone: 1(300) 422-310812-18-2024 Evaluation note* Diagnosis Onset Date Resolution Status [...] February 09, 2024 chronic Apr 2024 11:25am [facility] Work Phone: 1(936) 851-317311-18-2024 Hospital Discharge instructions Patient Education 01/23/2024 05:46:33 [...] that stimulates the heart. This includes many ibcz-zis-tsrwlez cold and sinus decongestant pills and sprays, as well as diet pills. Check the warnings about high blood pressure on thelabel. Before purchasing any lbiv-jpa-arzepmo medicines or supplements, always ask the pharmacist [...] on home blood pressure monitoring from the [employer]. Don't smoke or drink coffee [...] of the face Trouble speaking or seeing [phone] The [employer]. [address] [place] [address]. All rights reserved. This information is not intended as a substitute for professional medical care. Always follow yourhealthcare professional's instructions. Follow Up Care 01/23/2024 02:30:07 With:LIBORIO SAENZ MD Address: [address] [facility] [address] [facility] [place] [address] [phone] When:2-4 days With:AMADOU LIU MD Address: [address] [facility] [address] [place] [address] [phone] When:2-4 days [facility] 11-18-2024 Emergency department Discharge summary Discharge Instructions Thank you for allowing [facility] to assist you with your healthcare needs. The following is importantdischarge information regarding your hospital visit. What to Do Next Instructions from Your Care Team No qualifying data available. Post Acute Orders No qualifying data available. You Need to Schedule the Following Appointments Follow Up with LIBORIO SAENZ MD When:Within 2-4 days Where:[address] [facility] [address] [facility] [place] [address] [phone] Follow Up with AMADOU LIU MD When:Within 2-4 days Where:[address] [facility] [address] [place] [address] [phone] Allergies erythromycin Medications Please ask your primary [...] that stimulates the heart. This includes many wice-ixj-yeuuxop cold and sinus decongestant pills and sprays, as well as diet pills. Check the warnings about high blood pressure on thelabel. Before purchasing any rznv-tee-jlgbcvp medicines or supplements, always ask the pharmacist [...] on home blood pressure monitoring from the [employer]. Don't smoke or drink coffee [...] of the face Trouble speaking or seeing [phone] [employer]. [address] [place] [address]. All rights reserved. This information is not intended as a substitute for professional medical care. Always follow yourhealthcare professional's instructions. Additional Information VACCINATE! IT SAVES LIVES! Members of the community who have not yet received the COVID-19 vaccine and would like to receive it can visit one of [facility] vaccine clinics. There are many vaccine clinic locations within the [facility]. For locations and available times, please visit www.gettheshot.coronavirus.[place].gov/. It is important to note that some COVID mobile vaccine clinics are held outdoors and may be canceled in rainy or stormy conditions. To learn more about pediatric vaccinations (ages 5-11), we invite you to visit the [facility] webpage. https://www.[facility].org/pages/8117-Btaev-Scgxplbbpey-Kjhozsuajj-Dqpiv-Kgf stions.htmlTo learn more about the COVID-19 vaccine, we invite you to visit the CDC website for a list of frequently asked questions. https://www.cdc.gov/coronavirus/2019-ncov/vaccines/faq.html [employer] Patient Portal Access Instructions: Stay connected with your healthcare team and access your personal medical information anytime with the [employer] Patient Portal. If you would like a full copy of your medical records please contact the [facility] Medical Records Department Tuesday through Tuesday between 8a.m. and 4:30p.m. Please follow the directions below to access the portal: 1.Access the email account you provided upon registration to the [facility].2.Look for an invitation email from [facility].3.Open the email and access the invitation link: Accept Invitation to [facility]4.Fill in the required loaiza to create your account. Sign into www.[employer] with your username and password that you [...] you will allow to register on the [employer] Patient Portal for access to your information. You can also access the [employer] Patient Portal on the [employer] alfreda. Simply click on Health Records under [employer] and then click on the [employer] logo. HOW TO SAFELY DISPOSE OF PRESCRIPTION [...] Call your local pharmacy or go to [email or web address] to find one close to you.3.Make use of household items: Use cat litter or old coffee grounds to dispose medications if other options arenot available. Mix your drugs with these household products, seal them in an airtight container andthrow it into the garbage. Call [facility]: [phone] to be sure your drugs can be [...] aware that I should contact my doctor. Patient/Medical Scientific Officer Signature: Date/Time: Relationship to Patient: Witness Name/Signature: Date/Time: [facility] [id number] Note ORIGINAL EXAMINATION: CT OF THE HEAD [...] Sign Date: 01/23/2024 4:06:01 AM Ordering Provider: [facility]11-18-2024 Note ORIGINAL EXAMINATION: ONE XRAY VIEW [...] Sign Date: 01/23/2024 3:33:33 AM Ordering Provider: [facility]11-18-2024 NoteSINUS RHYTHM ABNORMAL R-WAVE PROGRESSION, EARLY TRANSITION PROBABLE LEFT VENTRICULAR HYPERTROPHY Electronic Signature: MARIANNE PINEDA 01/23/2024 05:54:09[facility] 11-01-2024 NoteHNO ID: [id number] Author: RC RAMIREZ APRN.VEGETABLE TRIMMER Service: ? Author Type: Nurse Practitioner Type: Progress Notes Filed: 01/06/2024 10:42 Note Text: TAVR STRUCTURAL REVIEW FORM Orders placed by: Erik Lucas APRN ([facility]) Records Reviewed: 01/06/2024 Appt request sent: 01/06/2024 Records in [facility] have been reviewed. Severe . Request has been sent to the grey percher who will arrange an appointment schedule. Please [...] greater, then it should be by an Almond Sorter ONLY (Dr. Arias, Dr. George, Dr. Mcnulty, Dr. Cruz, Dr. Benedict, Dr. Linn, Dr. Peoples,Dr. Loredo, Dr. Lewis, Dr. Lozoya, Dr. Figueroa and Dr. Graham) DAY THREE: Nuclear Medicine- Amyloid SPECT Structural Valve Clinic appointment PFT?s (spirometry, diffusing capacity) Patient is also to be seen by Dr. Richardson/Dr. Limon/Dr. Stephen/Dr. Read/ Dr. Lovell/Dr. Portillo/Dr. Wilkins/Dr. Magana/ Dr. Olivia/ Dr. Orr/Dr. Douglas. Rc Ramirez APRN.[facility]11-01-2024 History of Present illness Narrative* Rc Ramirez APRN.VEGETABLE TRIMMER - 01/06/2024 10:14 AM EDT Images from the original note were not included. TAVR STRUCTURAL REVIEW FORM Orders placed by: Erik Lucas APRN ([facility]) Records Reviewed: 01/06/2024 Appt request sent: 01/06/2024 Records in [facility] have been reviewed. Severe . Request has been sent to the grey percher who will arrange an appointment schedule. Please [...] greater, then it should be by an Almond Sorter ONLY (Dr. Arias, , Dr. Mcnulty, Dr. [...] Douglas. Rc Ramirez APRN.CNP [facility] Tele[facility] encounter Note * Telephone Encounter - Melissa Friend - 12/26/2023 4:59 PM EDT Images from the original note were not included. Received referral to Dr. George for TAVR, uploaded under scanned documents Echo 12/21/2023 (No Images) CXR 01/23/2023 (No Images) Faxed request for images: [facility]10-21-2024 Miscellaneous Notes* Telephone Encounter - Melissa Friend - 12/26/2023 4:59 PM EDT Images from the original note were not included. Received referral to Dr. George for TAVR, uploaded under scanned documents Echo 12/21/2023 (No Images) CXR 01/23/2023 (No Images) Faxed request for images: [facility] Telephone encounter Note * Telephone Encounter - José Luis Jett - 12/23/2023 8:33 AM EDT RECEIVED CALL FROM: Family member - Name: Maria Victoria PATIENT INFORMATION: Name: Gina Worthington : 1935 (home) Email: [email or web address] Referring Provider: No referring provider defined for this encounter. Phone: N/A Fax: Requested Surgeon: First Available/Unspecified Reason for appointment/diagnosis : Aortic stenosis José Luis Jett December 23, 2023 8:34 AM [facility]10-18-2024 Miscellaneous Notes* Telephone Encounter - José Luis Jett - 12/23/2023 8:33 AM EDT RECEIVED CALL FROM: Family member - Name: Maria Victoria PATIENT INFORMATION: Name: Gina Polanco Dev : 1935 (home) Email: [email or web address] Referring Provider: No referring provider defined for this encounter. Phone: N/A Fax: Requested Surgeon: First Available/Unspecified Reason for appointment/diagnosis : Aortic stenosis José Luis Jett December 23, 2023 8:34 AM [facility] Evaluation note* Diagnosis Onset Date Resolution Status Essential (primary) hypertension chronic History of coronary artery stent placement June 19, 2001 chronic Hyperlipidemia chronic Nonrheumatic aortic (valve) stenosis chronic [facility] Work Phone: Discharge summary Author Mario Cruz [facility] January 23, 2023 10:47am Note Date/Time January 23, 2023 9:36am [facility] Medical Records Department [address] [place] [address] Emergency Department Summary 01/23/23 MR#: [id number] Acct: [id number] Name: WORTHINGTON,GINA Polanco Rep #:[id number] : 1935 87 From: Mario Cruz DO [...] she tries to keep away from these. [facility] Medical History Atherosclerotic heart disease of [place] coronary artery without angina pectoris Deep vein [...] % (Auto) 63.9 Lymph % (Auto) 26.2 [place] % (Auto) 8.1 Eos % (Auto) 0.8 [...] your Primary Care Provider. Call [facility] ([phone]) or report to the closest Emergency Room. Call 911 if necessary. 01/23/23 1047 <Electronically signed by Mario Cruz DO> Cosigner Signature (if applicable): CC: No Primary Care Physician ~ Signed [facility] Work Phone: Evaluation + Plan note Future Appointments Appointment Date:01/26/2024 02:30:00 PM Scheduled Provider:AMRITA CHAVARRIA Location:[facility] Appointment Type:CV METAL FABRICATOR [facility] Evaluation noteNo assessment information available [facility] Work Phone: Evaluation note* Diagnosis Nonrheumatic aortic valve stenosis- Primary Aortic valve disorders documented in this encounter [facility] course Narrative No data available for this section [facility] Hospital Discharge instructions Additional Instructions Albuterol MDI: 2 puffs every 4 hours as needed for cough/wheezing.[facility] Work Phone: Hospital Discharge instructions Additional Instructions Your workup showed no sign of heart damage or kidney damage associated from your high blood pressure this evening. Please continue all of your blood pressure medications as directed by your family doctor and follow-up with them for repeat evaluation. Return to the ER should you have any [facility] Work Phone: Hospital Discharge instructionsAdditional Instructions Cardiac workup negative. Your CT angiogram chest also negative. Blood pressure elevated in the ED. Discussed with Dr. Lopez, take isosorbide mononitrate as prescribed once daily this will help your blood pressure along with potential keeping symptoms from returning. You were refilled for your sublingual nitro to use as needed. Follow-up with Anali in the office.[facility] Work Phone: Reason for referral (narrative)No reason for referral information availableWCommunity [facility] Work Phone: Summary note* Roxie Hines: PERFORM Event Display: Patient Summary Documents Authored Date: [id number] [facility] Advance Directives Advance Directive Response Recorded Date/ Time Advance Directives No April 13, 2016 3:02am Living Will No December 06 3:42pm Power of Aerial Photograph Interpreter No December 06 021 3:42pm Advance Directive Response Recorded Date/ Time Name of Medical Power of Aerial Photograph Interpreter MARA LARA March 09, 2022 10:59pm Advance Directives No April 13, 2016 2:02am Living Will No March 09 3 10:59pm Power of Aerial Photograph Interpreter Yes March 09 023 10:59pm Advance Directive Response Recorded Date/ Time Advance Directives No April 13, 2016 2:02am Living Will No January 23 023 10:58am Power of Aerial Photograph Interpreter No January 23, 2023 10:58am Advance Directive Response Recorded Date/ Time Living Will Yes November 07 024 12:36am Do you have a Healthcare Power of Aerial Photograph Interpreter? Yes November 08, 2023 12:36am Advance Directives No April 13, 2016 3:02am Advance Directive Response Recorded Date/ Time Advance Directives No April 13, 2016 3:02am Advance Directive Response Recorded Date/ Time Do you have a Healthcare Power of Aerial Photograph Interpreter? No August 23, 2024 12:35am Advance Directives No April 13, 2016 3:02am Advance Directive Response Recorded Date/ Time Do you have a Healthcare Power of Aerial Photograph Interpreter? Yes October 24, 2024 9:13pm Do you have a Healthcare Power of Aerial Photograph Interpreter? No August 23, 2024 12:35am Advance Directives [...] HYPERTENSION October 24, 2024 8: 27pm S/P [facility] 20 CP November 14, 2024 9:16am E-ORDER [...] Provider, Refer ring Provider Active Priyanka Marks METAL FABRICATOR, METAL FABRICATOR-C Attending Provider Active Team Status: Active Member Role Status Dates No Primary Care Physician Primary Care Provider Active Dr. Octavio Lopez MD Attending Provider Active Team Status: Active Member Role Status Dates No Primary Care Physician Primary Care Provider Active Priyanka Marks METAL FABRICATOR, METAL FABRICATOR-C Attending Provider Active Team Status: Inactive Member Role Status Dates No Primary Care Physician Primary Care Provider Active Dr. Octavio Lopez MD Other Provider Active Priyanka Marks METAL FABRICATOR, METAL FABRICATOR-C Attending Provider, Referring Apple moreno Active Team Status: Inactive Member Role Status Dates No Primary Care Physician Primary Care Provider Active Dr. Mario rCuz DO Emergency Provider Active Team Status: Active [...] DATE CREATED AUTHOR AUTHOR'S ORGANIZ ATION 12/25/2023 [facility] DATE CREATED AUTHOR AUTHOR'S ORGANIZ ATION 01/11/2024 [facility] DATE CREATED AUTHOR AUTHOR'S ORGANIZ ATION 02/20/2024 [facility] DATE CREATED AUTHOR AUTHOR'S ORGANIZ ATION 11/28/2024 [facility] Source Comments (unrecognize d section and content) In the event this informatio n is protected by the Federal Confidentiality of Alcohol and Drug Abuse Patient Records regulations: The Federal rules restrict any use of the information to criminally investigate or prosecute any alcohol or drug abuse patient.[facility] the event this information is protected by the Federal Confidentiality of Alcohol and Drug Abuse Patient Records regulations: The Federal rules restrict any use of the information to criminally investigate or prosecute any alcohol or drug abuse patient.[facility] the event this information is protected by the Federal Confidentiality of Alcohol and Drug Abuse Patient Records regulations: The Federal rules restrict any use of the information to criminally investigate or prosecute any alcohol or drug abuse patient.[facility] Reason for Visit (unrecogniz ed section [...] BE BASED ON THE PRIMARY CLINICAL RECORDS. [employer] provides no warranty or guarantee of the accuracy or completeness of information in this document.
--- OUTSIDE RECORDS SUMMARY | 2025-01-01 22:03 | XMS RPT_ITS | CCD ---
Author Organization [facility] Care Team Providers Care Splitter Head Name Role Phone [place] Adamsamol Mitchell Unavailable [...] Amadou Liu MD Primary Care Provider Amadou iLu MD Referring Provider Anali Ware Attending Provider [...] Unavailable Calos, Chalon Primary Care Unavailable Jessica, [place] Referring Unavailable Vasquez Blake Consulting Unavailable VERGHESE, JOEL Referring Unavailable VERGHESE, JOEL Attending Unavailable Calos, Chalon Primary Care Unavailable Calos, Chalon Referring Unavailable Calos, Chalon Primary Care Unavailable Anali Ware Attending Unavail able Juan Antonio Alaniz Attending Unavailable Calos, Chalon Primary Care Unavailable Anali Ware Referring Unavail able Jessica, [place] Attending Unavailable Jessica, Octavio Referring Unavailable Calos, Chalon Primary Care Unavailable Jessica, Octavio Attending Unavailable Calos, Chalon Primary Care Unavailable Jessica, [place] Attending Unavailable Calos, Chalon Primary Care Unavailable [...] Care Unavailable Calos, Chalon Referring Unavailable Roof DREDGING INSPECTOR, Erik Carlos Attending Unavailable Calos, Chalon Primary [...] drug allergy 5 Other: See Comments, Unknown [facility] Work Phone: Comment on above: per pt impairs kidne y function and she was unable to walk for 1 week (4 sources) NKDA drug allergy 3 [employer] Work Phone: (12 sources) [facility] Isosorbide; Translations: [ISOSORBIDE MONONITRATE] Drug Allergy 5 Intolerance [facility] Work Phone: (1 source) Erythromycin; Translations: [erythromycin] Drug Allergy [facility] (1 source) Pravastatin Drug Allergy 5 [facility] Repository Medications Current Medications Medication Drug [...] One tablet by mouth daily ATORVASTATIN CALCIUM [id number] Octavio Lopez MD carvedilol 12.5 mg oral [...] 1 tablet by mouth daily CLOPIDOGREL BISULFATE [id number] Anali Daniel PA-C desoximetasone 2.5 mg/ml topical [...] Active Start: 08-26-2014 take 1 capsule by [facility] once daily diltiazem CD [...] by mouth every other day ROSUVASTATIN CALCIUM [id number] Nicole Vaughan ubidecarenone 200 mg oral ca [...] TABS One tablet by mouth daily ASPIRIN [id number] Nicole Vaughan Start: 11-11-2010 take 1 tablet by tomasa th once daily ASPIRIN 81 MG TABS One tablet by mouth daily ASPIRIN [id number] Nicole Vaughan Start: 11-11-2010 take 1 tablet by tomasa th once daily ASPIRIN EC 81 MG TBEC One tablet by mouth daily ASPIRIN [id number] Marsha Auguste, MICHAEL cinnamon bark 500 mg [...] daily today, tomorr and Tuesday ENOXAPARIN SODIUM [id number] Ozzie Vasquez MD Start: 07-23-2013 LOVENOX 80 MG/ 0.8ML SOLN inject 0.8 mg (1 syringe) sc twice daily today, tomorr and Tuesday ENOXAPARIN SODIUM [id number] Ozzie Vasquez MD Start: 07-23-2013 End: 08-02-2013 LOVENOX 80 MG/0.8ML SOLN inj ect 0.8 mg (1 syringe) sc twice daily today, tomorr and Tuesday ENOXAPARIN SODIUM [id number] Anali Daniel PA-C ezetimibe 10 mg oral [...] by mouth once daily IMDUR 30 MG [id number] B One tablet by mouth daily ISOSORBIDE MONONITRATE [id number] Octavio Lopez MD Start: 04-11-2014 End: 12-04-2014 take 1 tablet by mouth once daily IMDUR 30 MG [id number] B One tablet by mouth daily ISOSORBIDE MONONITRATE [id number] Octavio Lopez MD Start: 04-11-2014 take 1 tablet by mouth once da wilfrido IMDUR 30 MG [id number] One tablet by mouth daily ISOSORBIDE MONONITRATE [id number] Octavio Lopez MD lisinopril 10 mg oral [...] TABS One tablet by mouth daily LISINOPRIL [id number] Octavio Lopez MD Start: 07-20-2013 take 0.5 tablet by m outh once daily LISINOPRIL 10 MG TABS 1/2 tablet by mouth daily LISINOPRIL [id number] Shirley Jewell RN Start: 07-20-2013 LISINOPRIL 20 MG TABS one tablet in the evening LISINOPRIL [id number] Octavio Lopez MD Start: 11-11-2010 End: 02-21-2012 take 1 tablet by mouth once daily LISINOPRIL 10 MG TABS One tablet by mouth daily LISINOPRIL [id number] Don Elliott MD 24 hr metoprolol succinate 50 mg extended release oral tablet (10 sources) beta-Adrenergic Brandon Start: 07-20-2013 End: 08-01-2013 take 1 tablet by mouth once daily TOPROL XL 50 MG [id number] One tablet by mouth daily METOPROLOL SUCCINATE [id number] Octavio Lopez MD Start: 07-20-2013 End: 08-01-2013 take 1 tablet by mouth once daily TOPROL XL 50 MG [id number] One tablet by mouth daily METOPROLOL SUCCINATE [id number] Shirley Jewell RN Start: 07-20-2013 take 1 tablet by tomasa th once daily TOPROL XL 50 MG [id number] One tablet by mouth daily METOPROLOL SUCCINATE [id number] Octavio Lopez MD Multivitamin tablet (9 sources) [...] 5 min up to 3 X NITROGLYCERIN [id number] Octavio Lopez MD Start: 11-11-2010 NITROSTAT 0.4 MG SUBL 1 tablet under tongue every 5 min up to 3 X NITROGLYCERIN [id number] Octavio Lopez MD pravastatin sodium 40 mg [...] heart cath)managed by Dr. Crooks WARFARIN SODIUM [id number] Shirley Jewell RN Start: 06-12-2013 End: 01-12-2021 [...] TABS managed b romel Crooks WARFARIN SODIUM [phone] Octavio Lopez MD Problems Active Problems Problem Classification Problem Date Documented Da te Episodic/Chronic Coronary atherosclerosis and other heart disease (20 sources) Coronary arteriosclerosis; Translations: [Atherosclerotic heart disease of [place] coronary artery without angina pectoris] Onset: 11-11-2010 [...] stenosis] Onset: 02-09-2024 Chronic Comment on above: [facility]. 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] 10-25-2024 Episodic Other [...] (3 sources) Long-term drug therapy; Translations: [Other intermediate manager (current) drug therapy] Onset: 11-11-2010 11-11-2010 Viral infection (12 sources) Disease caused by 2019-nCoV; Translations: [COVID-19] 08-26-2019 Episodic Past or Other Problems Problem Classification Problem Date Documented Da te Episodic/Chronic Other aftercare (2 sources) Other residential (current) drug therapy; Translations: [Other intermediate manager (current) drug therapy] Onset: 11-11-2010 11-11-2010 [...] 11-14-2024 Anion gap [Moles/Vol] 9 mmol/L 07-19 [facility] BUN/creatinine ratioOrdered By: Anali Daniel on 11-14-2024 Urea nitrogen/Creatinine [Mass ratio] 20.3 mg/mg High 12-24 [facility] Bilirubin, totalOrdered By: Anali Daniel on 11-14-2024 Bilirubin [Mass/Vol] 0.45 mg/dL 0.00-1.30 [facility] Calculated very low density lipoprotein (VLDL) cholesterol measurementOrdered By: Anali Daniel on 11-14-2024 Calculated very low density lipoprotein (VLDL) cholesterol measurement 28 mg/dL 5-40 [facility] Carbon dioxide, total [Moles /volume] in Central venous bloodOrdered By: Anali Daniel on 11-14-2024 CO2 [Moles/Vol] 24.4 mmol/L 21.0-32.0 [facility] Cardiology Visit Reporton Cardiology Visit Report [facility] [address] [place] [address] OFFICE VISIT Date of Service: 11/14/24 MR#: [id number] Acct: [id number] Name: GINA WORTHINGTON Rep #: [id number] : 1935 Provider: ANDREA Howard Age/Sex: 89/F Location: [facility] Status: Signed HPI HPI History of [...] locally and wish to be referred to [facility] for further evaluation. Due to wait time, she contacted [facility] team and scheduled an appointment. She has completed chest CTA. She was referred to their valve team. She is established with the cardiothoracic department at [facility] on 01/31/2024. On 02/08/2024 patient [...] Pulse Source Monitor Intake Visit Reasons: S/P [facility] 10/24 CP Legislative Correspondent Required: No Accompanied by: Self Is patient [...] Medical History Anemia Atherosclerotic heart disease of [place] coronary artery without angina pectoris Back pain Deep vein thrombosis Essential (primary) hypertension GERD (gastroesophageal reflux disease) Hyperlipidemia Nonrheumatic aortic (valve) stenosis Obesity Surgical History History of coronary artery stent placement (06/19/01) History of left heart catheteriza (more content not included)... Normal [facility] Chloride assayOrdered By: Jessica Daniel on 11-14-2024 Chloride [Moles/Vol] 104 mmol/L 98-108 [facility] Comprehensive Metabolic Prof ilon 11-14-2024 Albumin [Mass/Vol] 3.9 g/dL Normal 3.4-4.8 [facility] Comment on above: Performed By: #### L 100.0600, L500.4050, L500.4100 #### [facility] [address] [place], [address] Albumin/Globulin [Mass ratio] 1.4 {ratio} Normal 0.9-2.4 [facility] Comment on above: Performed By: #### L 100.0600, L500.4050, L500.4100 #### [facility] [address] [place], [address] ALK PHOS 52 U/L Normal 35-104 [facility] Comment on above: Performed By: #### L 100.0600, L500.4050, L500.4100 #### [facility] [address] [place], [address] ALT [Catalytic activity/Vol] 10 U/L Normal <=34 [facility] Comment on above: Performed By: #### L 100.0600, L500.4050, L500.4100 #### [facility] [address] [place], [address] AST [Catalytic activity/Vol] 26 U/L Normal <=31 [facility] Comment on above: Performed By: #### L 100.0600, L500.4050, L500.4100 #### [facility] [address] [place], [address] Bilirubin [Mass/Vol] 0.45 mg/dL Normal 0.00-1.30 [facility] Comment on above: Performed By: #### L 100.0600, L500.4050, L500.4100 #### [facility] [address] [place], [address] BUN/CRE 20.3 RATIO High 10-20 [facility] Comment on above: Performed By: #### L 100.0600, L500.4050, L500.4100 #### [facility] [address] [place], [address] Calcium [Mass/Vol] 9.4 mg/dL Normal 7.6-11.0 [facility] Comment on above: Performed By: #### L 100.0600, L500.4050, L500.4100 #### [facility] [address] [place], [address] Chloride [Moles/Vol] 104 mmol/L Normal 98-108 [facility] Comment on above: Performed By: #### L 100.0600, L500.4050, L500.4100 #### [facility] [address] [place], [address] CO2 [Moles/Vol] 24.4 mmol/L Normal 21.0-32.0 [facility] Comment on above: Performed By: #### L 100.0600, L500.4050, L500.4100 #### [facility] [address] [place], [address] Creatinine [Mass/Vol] 1.17 mg/dL Normal 0.70-1.20 [facility] Comment on above: Performed By: #### L 100.0600, L500.4050, L500.4100 #### [facility] [address] [place], [address] GAP 9 Normal 5-15 [facility] Comment on above: Performed By: #### L 100.0600, L500.4050, L500.4100 #### [facility] [address] [place], [address] GFR/1.73 sq M.predicted among non-blacks MDRD (S/P/Bld) [Vol rate/Area] 45 mL/min/{1.73_m2} Low >60 [facility] Comment on above: Result Comment: mL/m in/1.73m2 CKD-EPI Creatinine Equation (2020) Performed By: #### L 100.0600, L500.4050, L500.4100 #### [facility] [address] [place], [address] Globulin (S) [Mass/Vol] 2.9 g/dL Normal 2.2-4.2 [facility] Comment on above: Performed By: #### L 100.0600, L500.4050, L500.4100 #### [facility] [address] [place], [address] Glucose [Mass/Vol] 90 mg/dL Normal 70-99 [facility] Comment on above: Performed By: #### L 100.0600, L500.4050, L500.4100 #### [facility] [address] [place], [address] Potassium [Moles/Vol] 4.6 mmol/L Normal 3.3-5.1 [facility] Comment on above: Performed By: #### L 100.0600, L500.4050, L500.4100 #### [facility] [address] [place], [address] Sodium [Moles/Vol] 137 mmol/L Normal 133-145 [facility] Comment on above: Performed By: #### L 100.0600, L500.4050, L500.4100 #### [facility] [address] [place], [address] T PROT 6.8 g/dL Normal 5.9-8.4 [facility] Comment on above: Performed By: #### L 100.0600, L500.4050, L500.4100 #### [facility] [address] [place], [address] Urea nitrogen [Mass/Vol] 24 mg/dL High 4-19 [facility] Comment on above: Performed By: #### L 100.0600, L500.4050, L500.4100 #### [facility] [address] [place], [address] Glomerular filtration rate ( GFR) estimation/1.73 sq m using serum, plasma, or whole bOrdered By: Anali Daniel on 11-14-2024 GFR/1.73 sq M.predicted among non-blacks MDRD (S/P/Bld) [Vol rate/Area] 45 mL/min/{1.73_m2} Low >60 [facility] Comment on above: mL/min/1.73m2 CKD-EP I Creatinine Equation (2020) HH, Hemoglobin AND Hematocri ton 11-14-2024 Hematocrit (Bld) [Volume fraction] 35.5 % Low 37-47 [facility] Comment on above: Performed By: #### L 100.0600, L500.4050, L500.4100 #### [facility] [address] [place], [address] Hemoglobin (Bld) [Mass/Vol] 11.7 g/dL Low 12.0-15.0 [facility] Comment on above: Performed By: #### L 100.0600, L500.4050, L500.4100 #### [facility] [address] [place], [address] Hematocrit Auto (Bld) [Volum e fraction]Ordered By: Anali Daniel on 11-14-2024 Hematocrit (Bld) [Volume fraction] 35.5 % Low 37-47 [facility] Hemoglobin measurementOrdere d By: Anali Daniel on 11-14-2024 Hemoglobin (Bld) [Mass/Vol] 11.7 g/dL Low 12.0-15.0 [facility] LDL calc ser/plasOrdered By: Anali Daniel on 11-14-2024 Cholesterol in LDL [Mass/Vol] 236 mg/dL [facility] Comment on above: Mzouhfdtvh=446-877 m g/dL & Higher Cdst=343 mg/dL or greaterFriedwald Equation for LDL-C Laboratory - Chemistry and C hemistry - challengeOrdered By: Anali Daniel on 11-14-2024 AST [Catalytic activity/Vol] 26 U/L <32 [facility] Lipid Profileon 11-14-2024 CHOL:HDL 5.36 Normal [facility] Comment on above: Performed By: #### L 100.0600, L500.4050, L500.4100 #### [facility] [address] [place], [address] Cholesterol [Mass/Vol] 324 mg/dL High <=200 [facility] Comment on above: Result Comment: Chol esterol level, Desirable <200 mg/dL Borderline high cholesterol 200-239 mg/dL High cholesterol >=240 mg/dL Recommendations of the NCEP Adult Treatment Panel for the following risk-cutoff thresholds for the [place] population. Performed By: #### L 100.0600, L500.4050, L500.4100 #### [facility] [address] [place], [address] Cholesterol in HDL [Mass/Vol] 60 mg/dL Normal [facility] Comment on above: Result Comment: Torie onal Cholesterol Education Program (NCEP) guidelines: <40 mg/dL: Low HDL-cholesterol (major risk factor for CHD) >= 60 mg/dL: High HDL-cholesterol (negative risk factor for CHD) HDL-cholesterol is affected by a number of factors, e.g. smoking, exercise, hormones, sex and age. Performed By: #### L 100.0600, L500.4050, L500.4100 #### [facility] [address] [place], [address] Cholesterol in LDL [Mass/Vol] 236 mg/dL Normal [facility] Comment on above: Result Comment: Bord xczikj=128-043 mg/dL Higher Fobt=941 mg/dL or greater Friedwald Equation for LDL-C Performed By: #### L 100.0600, L500.4050, L500.4100 #### [facility] [address] [place], [address] Cholesterol in VLDL [Mass/Vol] 28 mg/dL Normal 5-40 [facility] Comment on above: Performed By: #### L 100.0600, L500.4050, L500.4100 #### [facility] [address] [place], [address] Triglyceride [Mass/Vol] 140 mg/dL Normal [facility] Comment on above: Result Comment: The drugs N-Acetylcysteine and Metamizole may falsely depress this assay. Normal range: <150 mg/dL Borderline High: 150-199 mg/dL High: 200-499 mg/dL Very High: >500 mg/dL Performed By: #### L 100.0600, L500.4050, L500.4100 #### [facility] [place], [address] Potassium measurement (mass/ volume)Ordered By: Anali Daniel on 11-14-2024 Potassium (Unsp spec) [Mass/Vol] 4.6 mmol/L 3.3-5.1 [facility] Screening total cholesterol/ high density lipoprotein (HDL) cholesterol ratioOrdered By: Anali Daniel on 11-14-2024 Cholesterol.total/Angeline sterol in HDL [Mass ratio] 5.36 {ratio} [facility] Serum creatinine measurement (mass/volume)Ordered By: Anali Daniel on 11-14-2024 Creatinine [Mass/Vol] 1.17 mg/dL 0.70-1.20 [facility] Serum globulin measurementOr dered By: Anali Daniel on 11-14-2024 Globulin (S) [Mass/Vol] 2.9 g/dL 2.2-4.2 [facility] Serum glucose measurement (m ass/volume)Ordered By: Anali Daniel on 11-14-2024 Glucose [Mass/Vol] 90 mg/dL 70-99 [facility] Serum or plasma alanine glasgow otransferase (ALT) measurementOrdered By: Anali Daniel on 11-14-2024 ALT [Catalytic activity/Vol] 10 U/L <35 [facility] Serum or plasma albumin bony urement (mass/volume)Ordered By: Anali Daniel on 11-14-2024 Albumin [Mass/Vol] 3.9 g/dL 3.4-4.8 [facility] Serum or plasma albumin/glob ulin mass ratioOrdered By: Anali Daniel on 11-14-2024 Albumin/Globulin [Mass ratio] 1.4 {ratio} 0.9-2.4 [facility] Serum or plasma alkaline ronda sphatase measurementOrdered By: Anali Daniel on 11-14-2024 ALP [Catalytic activity/Vol] 52 U/L 35-104 [facility] Serum or plasma calcium bony urement (mass/volume)Ordered By: Anali Daniel on 11-14-2024 Calcium [Mass/Vol] 9.4 mg/dL 7.6-11.0 [facility] Serum or plasma cholesterol in HDL measurement (mass/volume)Ordered By: Anali Daniel on 11-14-2024 Cholesterol in HDL [Mass/Vol] 60 mg/dL >40 [facility] Comment on above: National Cholesterol Education Program (NCEP) guidelines:<40 mg/dL: Low HDL-cholesterol (major risk factor for CHD)>= 60 mg/dL: High HDL-cholesterol (negative risk factor for CHD)HDL-cholesterol is affected by a number of factors, e.g. smoking, exercise, hormones, sex and age. Serum or plasma cholesterol measurement (mass/volume)Ordered By: Anali Daniel on 11-14-2024 Cholesterol [Mass/Vol] 324 mg/dL High <201 [facility] Comment on above: Cholesterol level, D esirable <200 mg/dLBorderline high cholesterol 200-239 mg/dLHigh cholesterol >=240 mg/dLRecommendations of the NCEP Adult Treatment Panel for the following risk-cutoff thresholds for the [place] population. Serum or plasma urea nitroge n measurement (mass/volume)Ordered By: Anali Daniel on 11-14-2024 Urea nitrogen [Mass/Vol] 24 mg/dL High 4-19 [facility] Sodium levelOrdered By: Addison Daniel on 11-14-2024 Sodium [Moles/Vol] 137 mmol/L 133-145 [facility] Total proteinOrdered By: Alejo Daniel on 11-14-2024 Protein [Mass/Vol] 6.8 g/dL 5.9-8.4 [facility] Triglycerides measurementOrd ered By: Anali Daniel on 11-14-2024 Triglyceride [Mass/Vol] 140 mg/dL <[address] [facility] Comment on above: The drugs N-Acetylcy steine and Metamizole may falsely depress this assay. Normal range: <150 mg/dLBorderline High: 150-199 mg/dLHigh: 200-499 mg/dLVery High: >500 mg/dL Troponin T HS 4 HRon 025 Trop T High Sen Normal <=14 [facility] Comment on above: Result Comment: Canc elled via OM: Order cancelled - Patient discharged Performed By: #### L 499.0043 #### [facility] [address] [place], [address] 12 Lead EKGon 10-24-2024 12 Lead EKG [facility] Cardiovascular Services [address] [place] [address] 12 Lead EKG 10/24/242039 MR#: [id number] Acct: [id number] Name: GINA WORTHINGTON Rep #: [id number] : 1935 89 From: Tsering Peñaloza MD [...] Normal ECG Confirmed by ELIZABETH PAEZ, ELIEZER ([id number]), newspaper editor CANDIE PEMBERTON ([id number]) on 10/25/2024 1:36:59 PM Referred By: YOHANNES Confirmed By: ELIEZER PEÑALOZA MD 10/25/24 1337 Date Tsering Peñaloza MD CC: Dr. Amadou Liu MD; Dr. Steve Farnsworth DO Signed Normal [facility] Absolute lymphocyte countOrd ered By: Steve Farnsworth on 10-24-2024 Lymphocytes Auto (Unsp spec) [#/Vol] 1.10 10*3/uL 0.83-4.51 [facility] Absolute neutrophil countOrd ered By: Steve Farnsworth on 10-24-2024 Neutrophils (Bld) [#/Vol] 3.0 10*3/uL 2.0-7.7 [facility] Anion gap in Serum or Plasma Ordered By: Steve Farnsworth on 10-24-2024 Anion gap [Moles/Vol] 12 mmol/L 5-15 [facility] Automated lymphocyte count a s percentage of total leukocytesOrdered By: Steve Farnsworth on 10-24-2024 Lymphocytes/100 WBC Auto (Unsp spec) 24.4 % [facility] BUN/creatinine ratioOrdered By: Steve Farnsworth on 10-24-2024 Urea nitrogen/Creatinine [Mass ratio] 26.3 mg/mg High 12-24 [facility] Basic Metabolic Profile (BMP )on 10-24-2024 BUN/CRE 26.3 RATIO High 12-24 [facility] Comment on above: Performed By: #### M 100.2200 #### [facility] [address] [place], [address] Calcium [Mass/Vol] 9.7 mg/dL Normal 7.6-11.0 [facility] Comment on above: Performed By: #### M 100.2200 #### [facility] [address] [place], [address] Chloride [Moles/Vol] 103 mmol/L Normal 98-108 [facility] Comment on above: Performed By: #### M 100.2200 #### [facility] [address] [place], [address] CO2 [Moles/Vol] 24.7 mmol/L Normal 21.0-32.0 [facility] Comment on above: Performed By: #### M 100.2200 #### [facility] [address] [place], [address] Creatinine [Mass/Vol] 0.89 mg/dL Normal 0.70-1.20 [facility] Comment on above: Performed By: #### M 100.2200 #### [facility] [address] [place], [address] ECRCL 39.13 ml/min Low 50-250 [facility] Comment on above: Performed By: #### M 100.2200 #### [facility] [address] [place], [address] GAP 12 Normal 5-15 [facility] Comment on above: Performed By: #### M 100.2200 #### [facility] [address] [place], [address] GFR/1.73 sq M.predicted among non-blacks MDRD (S/P/Bld) [Vol rate/Area] 62 mL/min/{1.73_m2} Normal >60 [facility] Comment on above: Result Comment: mL/m in/1.73m2 CKD-EPI Creatinine Equation (2020) Performed By: #### M 100.2200 #### [facility] [address] [place], [address] Glucose [Mass/Vol] 99 mg/dL Normal 70-99 [facility] Comment on above: Performed By: #### M 100.2200 #### [facility] [address] [place], [address] Potassium [Moles/Vol] 4.6 mmol/L Normal 3.3-5.1 [facility] Comment on above: Result Comment: Hemo lysis present, Results??could be affected. ?? Performed By: #### M 100.2200 #### [facility] [address] [place], [address] Sodium [Moles/Vol] 139 mmol/L Normal 133-145 [facility] Comment on above: Performed By: #### M 100.2200 #### [facility] [address] [place], [address] Urea nitrogen [Mass/Vol] 23 mg/dL High 4-19 [facility] Comment on above: Performed By: #### M 100.2200 #### [facility] [address] [place], [address] Basophil percentageOrdered B y: Steve Farnsworth on 10-24-2024 Basophils/100 WBC (Bld) 0.9 % 0-[address] [facility] CBC W/Diff, Automatedon 10-06-2024 Absolute Lymph 1.10 X10 3/uL Normal 0.83-4.51 [facility] Comment on above: Performed By: #### L 100.0100, L501.4021, L500.2500, L300.3900 #### [facility] [address] [place], [address] Absolute Neut 3.0 X10 3/uL Normal 2.0-7.7 [facility] Comment on above: Performed By: #### L 100.0100, L501.4021, L500.2500, L300.3900 #### [facility] [address] [place], [address] Basophils/100 WBC (Bld) 0.9 % Normal 0-[address] [facility] Comment on above: Performed By: #### L 100.0100, L501.4021, L500.2500, L300.3900 #### [facility] [address] [place], [address] Eosinophils/100 WBC (Bld) 0.9 % Normal 0-5 [facility] Comment on above: Performed By: #### L 100.0100, L501.4021, L500.2500, L300.3900 #### [facility] [address] [place], [address] Erythrocyte distribution width (RBC) [Ratio] 14.4 % Normal 11.6-14.6 [facility] Comment on above: Performed By: #### L 100.0100, L501.4021, L500.2500, L300.3900 #### [facility] [address] [place], [address] Hematocrit (Bld) [Volume fraction] 35.9 % Low 37-47 [facility] Comment on above: Performed By: #### L 100.0100, L501.4021, L500.2500, L300.3900 #### [facility] [address] [place], [address] Hemoglobin (Bld) [Mass/Vol] 12.0 g/dL Normal 12.0-15.0 [facility] Comment on above: Performed By: #### L 100.0100, L501.4021, L500.2500, L300.3900 #### [facility] [address] [place], [address] IG% 0.400 Normal 0.0-0.9 [facility] Comment on above: Result Comment: IG% - Immature Granulocytes (promyelocytes, myelocytes and metamyelocytes) > 1% indicates that a LEFT SHIFT is Present. Performed By: #### L 100.0100, L501.4021, L500.2500, L300.3900 #### [facility] [address] [place], [address] Lymphocytes/100 WBC (Bld) 24.4 % Normal 19-41 [facility] Comment on above: Performed By: #### L 100.0100, L501.4021, L500.2500, L300.3900 #### [facility] [address] [place], [address] MCH (RBC) [Entitic mass] 32.8 pg High 27.0-32.0 [facility] Comment on above: Performed By: #### L 100.0100, L501.4021, L500.2500, L300.3900 #### [facility] [address] [place], [address] MCHC (RBC) [Mass/Vol] 33.4 g/dL Normal 32-36 [facility] Comment on above: Performed By: #### L 100.0100, L501.4021, L500.2500, L300.3900 #### [facility] [address] [place], [address] MCV (RBC) [Entitic vol] 98.1 fL Normal 81-99 [facility] Comment on above: Performed By: #### L 100.0100, L501.4021, L500.2500, L300.3900 #### [facility] [address] [place], [address] Monocytes/100 WBC (Bld) 7.8 % Normal 0-10 [facility] Comment on above: Performed By: #### L 100.0100, L501.4021, L500.2500, L300.3900 #### [facility] [address] [place], [address] Neutrophils/100 WBC (Bld) 65.6 % Normal 47-70 [facility] Comment on above: Performed By: #### L 100.0100, L501.4021, L500.2500, L300.3900 #### [facility] [address] [place], [address] Nucleated RBC (Bld) [#/Vol] 0 10*3/uL Normal 0-5 [facility] Comment on above: Performed By: #### L 100.0100, L501.4021, L500.2500, L300.3900 #### [facility] [address] [place], [address] Platelet mean volume (Bld) [Entitic vol] 11.6 fL Normal 6.2-12.0 [facility] Comment on above: Performed By: #### L 100.0100, L501.4021, L500.2500, L300.3900 #### [facility] [address] [place], [address] Platelets (Bld) [#/Vol] 203 10*3/uL Normal 150-450 [facility] Comment on above: Performed By: #### L 100.0100, L501.4021, L500.2500, L300.3900 #### [facility] [address] [place], [address] RBC (Bld) [#/Vol] 3.66 10*6/uL Low 4.2-5.4 [facility] Comment on above: Performed By: #### L 100.0100, L501.4021, L500.2500, L300.3900 #### [facility] [address] [place], [address] RDW SD 51.9 fl High 35.1-43.9 [facility] Comment on above: Performed By: #### L 100.0100, L501.4021, L500.2500, L300.3900 #### [facility] [address] [place], [address] WBC (Bld) [#/Vol] 4.5 10*3/uL Normal 4.4-11.0 [facility] Comment on above: Performed By: #### L 100.0100, L501.4021, L500.2500, L300.3900 #### [facility] [address] [place], [address] CTA Chest W/WO Contraston CTA Chest W/WO Contrast [facility] [address] [place] [address] CTA Chest W/WO Contrast MR#: [id number] Acct: [id number] Name: GINA WORTHINGTON Rep #: [id number] : 1935 F 89 From: David Galarza MD PCP: Dr. Amadou Liu MD Status: [facility] ER Study: CTA Chest W/WO Contrast Date of Exam: 10/24/24 Exam# [id number] Ordering Dr: Steve Farnsworth DO PROCEDURE: CTA [...] pole of the right kidney. Reading Location: [facility] CC: Dr. Amadou Liu MD; Dr. Steve Farnsworth DO Dye Automation Operator: Signed Normal [facility] Carbon dioxide, total [Moles /volume] in Central venous bloodOrdered By: Steve Farnsworth on 10-24-2024 CO2 [Moles/Vol] 24.7 mmol/L 21.0-32.0 [facility] Chest 1 View (Portable)on Chest 1 View (Portable) [facility] [address] [place] [address] Chest 1 View (Portable) MR#: [id number] Acct: [id number] Name: GINA WORTHINGTON Rep #: [id number] : 1935 F 89 From: Daryl Cotto MD PCP: Dr. Amadou Liu MD Status: [facility] ER Study: Chest 1 View (Portable) Date of Exam: 10/24/24 Exam# [id number] Ordering Dr: Steve Farnsworth DO ADDENDUM by Dr. Daryl Cotto MD on 10/24/24 at 2157 Findings were communicated with the ordering physician Dr. Marvin Farnsworth 9:32 p.m.. 10/24/2024. Reading Location: [facility] 10/24/242156 Date cc: Dr. Amadou Liu [...] be performed for further evaluation. Reading Location: [facility] CC: Dr. Amadou Liu MD; Dr. Steve Farnsworth DO Dye Automation Operator: Signed Normal [facility] Chloride assayOrdered By: Rodri Farnsworth on 10-24-2024 Chloride [Moles/Vol] 103 mmol/L 98-108 [facility] Emergency Department Summary on 10-24-2024 Emergency Department Summary [facility] Medical Records Department [address] [place] [address] Emergency Department Summary 10/24/24 MR#: [id number] Acct: [id number] Name: GINA WORTHINGTON Rep #: [id number] : 1935 89 From: Steve Witt PCP: [...] Recent Immobilization or Prior DVT or PE [facility] Medical History Anemia Back pain GERD (gastroesophageal reflux disease) Obesity Deep vein thrombosis Essential (primary) hypertension Nonrheumatic aortic (valve) stenosis Hyperlipidemia Atherosclerotic heart disease of [place] coronary artery without angina pectoris Home Medications [...] [employer] (more content not included)... Normal [facility] Eosinophil percentageOrdered By: Steve Farnsworth on 10-24-2024 Eosinophils/100 WBC (Bld) 0.9 % 0-5 [facility] Erythrocyte distribution wid th ratioOrdered By: Steve Farnsworth on 10-24-2024 Erythrocyte distribution width (RBC) [Ratio] 14.4 % 11.6-14.6 [facility] Erythrocyte distribution wid th standard deviationOrdered By: Steve Farnsworth on 10-24-2024 Erythrocyte distribution width (RBC) [Ratio] 51.9 fl High 35.1-43.9 [facility] Glomerular filtration rate ( GFR) estimation/1.73 sq m using serum, plasma, or whole bOrdered By: Steve Farnsworth on 10-24-2024 GFR/1.73 sq M.predicted among non-blacks MDRD (S/P/Bld) [Vol rate/Area] 62 mL/min/{1.73_m2} >60 [facility] Comment on above: mL/min/1.73m2 CKD-EP I Creatinine Equation (2020) Hematocrit Auto (Bld) [Volum e fraction]Ordered By: Steve Farnsworth on 10-24-2024 Hematocrit (Bld) [Volume fraction] 35.9 % Low 37-47 [facility] Hemoglobin measurementOrdere d By: Steve Farnsworth on 10-24-2024 Hemoglobin (Bld) [Mass/Vol] 12.0 g/dL 12.0-15.0 [facility] Immature granulocytes/100 WB C Auto (Bld)Ordered By: Steve Farnsworth on 10-24-2024 Immature granulocytes/100 WBC (Bld) 0.400 % 0.0-0.9 [facility] Comment on above: IG% - Immature Granu locytes (promyelocytes, myelocytes and metamyelocytes) > 1% indicates that a LEFT SHIFT is Present. International normalized rat io (INR) calculationOrdered By: Steve Farnsworth on 10-24-2024 INR Coag (Bld) [Relative time] 1.1 {INR} [facility] L501.4021on 10-24-2024 Trop T High Sen 12 ng/L Normal <=14 [facility] Comment on above: Performed By: #### L 100.0100, L501.4021, L500.2500, L300.3900 #### [facility] [address] [place], [address] MCV (mean corpuscular volume ) determinationOrdered By: Steve Farnsworth on 10-24-2024 MCV (RBC) [Entitic vol] 98.1 fL 81-[address] [facility] Mean corpuscular hemoglobin (MCH) determinationOrdered By: Steve Farnsworth on 10-24-2024 MCH (RBC) [Entitic mass] 32.8 pg High 27.0-32.0 [facility] Mean corpuscular hemoglobin concentration (MCHC) determinationOrdered By: Steve Farnsworth on 10-24-2024 MCHC (RBC) [Mass/Vol] 33.4 g/dL 32-36 [facility] Mean platelet volume determi nationOrdered By: Steve Farnsworth on 10-24-2024 Platelet mean volume (Bld) [Entitic vol] 11.6 fL 6.2-12.0 [facility] Monocyte percentageOrdered B y: Steve Farnsworth on 10-24-2024 Monocytes/100 WBC (Bld) 7.8 % 0-[address] [facility] Neutrophil percentageOrdered By: Steve Farnsworth on 10-24-2024 Neutrophils/100 WBC (Bld) 65.6 % 47-70 [facility] Nucleated red blood cell per centageOrdered By: Steve Yohannes on 10-24-2024 Nucleated RBC/100 WBC (Bld) [Ratio] 0 % 0-5 [facility] Platelet countOrdered By: Rodri Farnsworth on 10-24-2024 Platelets (Bld) [#/Vol] 203 10*3/uL 150-450 [facility] Potassium measurement (mass/ volume)Ordered By: Steve Farnsworth on 10-24-2024 Potassium (Unsp spec) [Mass/Vol] 4.6 mmol/L 3.3-5.1 [facility] Comment on above: Hemolysis present, R esults could be affected. Prothrombin Time w/INRon INR Coag (PPP) [Relative time] 1.1 {INR} Normal [facility] Comment on above: Performed By: #### L 100.0100, L501.4021, L500.2500, L300.3900 #### [facility] [address] [place], [address] PT Coag (PPP) [Time] 14.6 s Normal 11.7-14.9 [facility] Comment on above: Performed By: #### L 100.0100, L501.4021, L500.2500, L300.3900 #### [facility] [address] [place], [address] Prothrombin timeOrdered By: Steve Le on 10-24-2024 PT Coag (PPP) [Time] 14.6 s 11.7-14.9 [facility] RBC Auto (Bld) [#/Vol]Ordere d By: Steve Le on 10-24-2024 RBC (Bld) [#/Vol] 3.66 10*6/uL Low 4.2-5.4 [facility] Serum creatinine measurement (mass/volume)Ordered By: Steve Farnsworth on 10-24-2024 Creatinine [Mass/Vol] 0.89 mg/dL 0.70-1.20 [facility] Serum glucose measurement (m ass/volume)Ordered By: Steve Farnsworth on 10-24-2024 Glucose [Mass/Vol] 99 mg/dL 70-99 [facility] Serum or plasma calcium bony urement (mass/volume)Ordered By: Steve Farnsworth on 10-24-2024 Calcium [Mass/Vol] 9.7 mg/dL 7.6-11.0 [facility] Serum or plasma urea nitroge n measurement (mass/volume)Ordered By: Steve Farnsworth on 10-24-2024 Urea nitrogen [Mass/Vol] 23 mg/dL High 4-19 [facility] Sodium levelOrdered By: Steve Farnsworth on 10-24-2024 Sodium [Moles/Vol] 139 mmol/L 133-145 [facility] Troponin T HS 2 HRon 025 Trop T High Sen 13 ng/L Normal <=14 [facility] Comment on above: Performed By: #### L 499.0042 #### [facility] [address] [facility] [place], [address] Troponin T.cardiac [Mass/vol ume] in Serum or Plasma by High sensitivity methodOrdered By: Steve Farnsworth on 10-24-2024 Troponin T.cardiac High sensitivity method [Mass/Vol] 13 ng/L <14 [facility] Troponin T.cardiac High sensitivity method [Mass/Vol] 12 ng/L <14 [facility] White blood cell (WBC) count Ordered By: Steve Farnsworth on 10-24-2024 WBC (Bld) [#/Vol] 4.5 10*3/uL 4.4-11.0 [facility] Duplex ultrasound of renal a rtery reportOrdered By: Juan Antonio Alaniz on 09-25-2024 Study report [facility] [address] [place] [address] Renal Artery Duplex Ultrasound 09/25/24 0844 MR#: [id number] Acct: [id number] Name: GINA WORTHINGTON Rep #:[id number] : 1935 89 From: Juan Antonio Ibrahim [...] Date Dictated: 09/25/24843 Date Transcribed: 09/25/24 131 Dye Automation Operator: Signed [facility] Work Phone: Renal Artery Duplex Ultrasou ndon 09-25-2024 Renal Artery Duplex Ultrasound [facility] [address] [place] [address] Renal Artery Duplex Ultrasound 09/25/2444 MR#: [id number] Acct: [id number] Name: GINA WORTHINGTON Rep #: [id number] : 1935 89 From: Juan Antonio Alaniz [...] Date Dictated: 09/25/24 0844 Date Transcribed: 09/25/241316 Dye Automation Operator: Signed Normal [facility] Cardiology Visit Reporton Cardiology Visit Report [facility] [address] [place], [place] [address] OFFICE VISIT Date of Service: 09/14/24 MR#: [id number] Acct: [id number] Name: GINA WORTHINGTON Rep #: [id number] : 1935 Provider: ANDREA Howard Age/Sex: 89/F Location[facility] Status: Signed HPI HPI History of [...] locally and wish to be referred to [facility] for further evaluation. Due to wait time, she contacted [facility] team and scheduled an appointment. She has completed chest CTA. She was referred to their valve team. She is established with the cardiothoracic department at [facility] on 01/31/2024. 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 [facility] 12 Lead EKGon 08-23-2024 12 Lead EKG [facility] Cardiovascular Services [address] [place] [address] 12 Lead EKG 08/23/24 0035 MR#: [id number] Acct: [id number] Name: GINA WORTHINGTON Rep #: [id number] : 1935 89 From: Pieter Cook MD [...] rhythm Normal ECG Confirmed by Pieter Cook ([id number]), newspaper editor MOSES PALOMO ([id number]) on 08/28/2024 11:30:23 AM Referred By: JEANNE Confirmed By: Pieter Cook 08/28/24 1130 Date Pieter Cook MD CC: Dr. Amadou Liu MD; Ruiz Luo, DO Signed Normal [facility] Absolute lymphocyte countOrd ered By: Ruiz Luo on 08-23-2024 Lymphocytes Auto (Unsp spec) [#/Vol] 1.16 10*3/uL 0.83-4.51 [facility] Absolute neutrophil countOrd ered By: Ruiz Luo on 08-23-2024 Neutrophils (Bld) [#/Vol] 2.4 10*3/uL 2.0-7.7 [facility] Anion gap in Serum or Plasma Ordered By: Ruiz Luo on 08-23-2024 Anion gap [Moles/Vol] 11 mmol/L 5-15 [facility] Automated lymphocyte count a s percentage of total leukocytesOrdered By: Ruiz Luo on 08-23-2024 Lymphocytes/100 WBC Auto (Unsp spec) 27.8 % -41 [facility] BUN/creatinine ratioOrdered By: Ruiz Luo on 08-23-2024 Urea nitrogen/Creatinine [Mass ratio] 20.7 mg/mg High 10-20 [facility] Basic Metabolic Profile (BMP )on 08-23-2024 BUN/CRE 20.7 RATIO High - [facility] Comment on above: Performed By: #### M 100.2200 #### [facility] [address] [place], [address] Calcium [Mass/Vol] 9.5 mg/dL Normal 7.6-11.0 [facility] Comment on above: Performed By: #### M 100.2200 #### [facility] [address] [place], [address] Chloride [Moles/Vol] 102 mmol/L Normal 98-108 [facility] Comment on above: Performed By: #### M 100.2200 #### [facility] [address] [place], [address] CO2 [Moles/Vol] 23.9 mmol/L Normal 21.0-32.0 [facility] Comment on above: Performed By: #### M 100.2200 #### [facility] [address] [place], [address] Creatinine [Mass/Vol] 0.94 mg/dL Normal 0.70-1.20 [facility] Comment on above: Performed By: #### M 100.2200 #### [facility] [address] [place], [address] ECRCL 37.21 ml/min Low 50-250 [facility] Comment on above: Performed By: #### M 100.2200 #### [facility] [address] [place], [address] GAP 11 Normal 5-15 [facility] Comment on above: Performed By: #### M 100.2200 #### [facility] [address] [place], [address] GFR/1.73 sq M.predicted among non-blacks MDRD (S/P/Bld) [Vol rate/Area] 58 mL/min/{1.73_m2} Low >60 [facility] Comment on above: Result Comment: mL/m in/1.73m2 CKD-EPI Creatinine Equation (2020) Performed By: #### M 100.2200 #### [facility] [address] [place], [address] Glucose [Mass/Vol] 108 mg/dL High 70-99 [facility] Comment on above: Performed By: #### M 100.2200 #### [facility] [address] [place], [address] Potassium [Moles/Vol] 4.3 mmol/L Normal 3.3-5.1 [facility] Comment on above: Performed By: #### M 100.2200 #### [facility] [address] [place], [address] Sodium [Moles/Vol] 137 mmol/L Normal 133-145 [facility] Comment on above: Performed By: #### M 100.2200 #### [facility] [address] [place], [address] Urea nitrogen [Mass/Vol] 20 mg/dL High - [facility] Comment on above: Performed By: #### M 100.2200 #### [facility] [address] [place], [address] Basophil percentageOrdered B y: Ruiz Luo on 08-23-2024 Basophils/100 WBC (Bld) 0.7 % 0-[address] [facility] CBC W/Diff, Automatedon 08-05 Absolute Lymph 1.16 X10 3/uL Normal 0.83-4.51 [facility] Comment on above: Performed By: #### M 100.2200 #### [facility] [address] [place], [address] Absolute Neut 2.4 X10 3/uL Normal 2.0-7.7 [facility] Comment on above: Performed By: #### M 100.2200 #### [facility] [address] [place], [address] Basophils/100 WBC (Bld) 0.7 % Normal 0-[address] [facility] Comment on above: Performed By: #### M 100.2200 #### [facility] [address] [place], [address] Eosinophils/100 WBC (Bld) 1.7 % Normal 0-5 [facility] Comment on above: Performed By: #### M 100.2200 #### [facility] [address] [place], [address] Erythrocyte distribution width (RBC) [Ratio] 14.4 % Normal 11.6-14.6 [facility] Comment on above: Performed By: #### M 100.2200 #### [facility] [address] [place], [address] Hematocrit (Bld) [Volume fraction] 34.7 % Low 37-47 [facility] Comment on above: Performed By: #### M 100.2200 #### [facility] [address] [place], [address] Hemoglobin (Bld) [Mass/Vol] 11.6 g/dL Low 12.0-15.0 [facility] Comment on above: Performed By: #### M 100.2200 #### [facility] [address] [place], [address] IG% 0.500 Normal 0.0-0.9 [facility] Comment on above: Result Comment: IG% - Immature Granulocytes (promyelocytes, myelocytes and metamyelocytes) > 1% indicates that a LEFT SHIFT is Present. Performed By: #### M 100.2200 #### [facility] [address] [place] [place], [address] Lymphocytes/100 WBC (Bld) 27.8 % Normal 19-41 [facility] Comment on above: Performed By: #### M 100.2200 #### [facility] [address] [place] [place], [address] MCH (RBC) [Entitic mass] 32.7 pg High 27.0-32.0 [facility] Comment on above: Performed By: #### M 100.2200 #### [facility] [address] [place], [address] MCHC (RBC) [Mass/Vol] 33.4 g/dL Normal 32-36 [facility] Comment on above: Performed By: #### M 100.2200 #### [facility] [address] [place], [address] MCV (RBC) [Entitic vol] 97.7 fL Normal 81-[address] [facility] Comment on above: Performed By: #### M 100.2199 #### [facility] [address] [place], [address] Monocytes/100 WBC (Bld) 10.8 % High 0-[address] [facility] Comment on above: Performed By: #### M 100.2199 #### [facility] [address] [place], [address] Neutrophils/100 WBC (Bld) 58.5 % Normal 47-70 [facility] Comment on above: Performed By: #### M 100.2199 #### [facility] [address] [place], [address] Nucleated RBC (Bld) [#/Vol] 0 10*3/uL Normal 0-5 [facility] Comment on above: Performed By: #### M 100.2199 #### [facility] [address] [place], [address] Platelet mean volume (Bld) [Entitic vol] 11.2 fL Normal 6.2-12.0 [facility] Comment on above: Performed By: #### M 100.2199 #### [facility] [address] [place], [address] Platelets (Bld) [#/Vol] 203 10*3/uL Normal 150-450 [facility] Comment on above: Performed By: #### M 100.2199 #### [facility] [address] [place], [address] RBC (Bld) [#/Vol] 3.55 10*6/uL Low 4.2-5.4 [facility] Comment on above: Performed By: #### M 100.2199 #### [facility] [address] [place], [address] RDW SD 52.3 fl High 35.1-43.9 [facility] Comment on above: Performed By: #### M 100.2199 #### [facility] [address] [place], [address] WBC (Bld) [#/Vol] 4.2 10*3/uL Low 4.4-11.0 [facility] Comment on above: Performed By: #### M 100.2200 #### [facility] [address] [place], [address] Carbon dioxide, total [Moles /volume] in Central venous bloodOrdered By: Ruiz Luo on 08-23-2024 CO2 [Moles/Vol] 23.9 mmol/L 21.0-32.0 [facility] Chloride assayOrdered By: Karey Luo on 08-23-2024 Chloride [Moles/Vol] 102 mmol/L 98-108 [facility] Emergency Department Summary on 08-23-2024 Emergency Department Summary [facility] Medical Records Department [address] [facility] [place] [address] Emergency Department Summary 08/23/24 MR#: [id number] Acct: [id number] Name: GINA WORTHINGTON Rep #: [id number] : 1935 89 From: Ruiz Luo DO [...] event and therefore comes in for evaluation [facility] Medical History Anemia Back pain GERD (gastroesophageal reflux disease) Obesity Deep vein thrombosis Essential (primary) hypertension Nonrheumatic aortic (valve) stenosis Hyperlipidemia Atherosclerotic heart disease of [place] coronary artery without angina pectoris Home Medications [...] Wall pal[employer]i (more content not included)... Normal [facility] Eosinophil percentageOrdered By: Ruiz Luo on 08-23-2024 Eosinophils/100 WBC (Bld) 1.7 % 0-5 [facility] Erythrocyte distribution wid th ratioOrdered By: Ruiz Luo on 08-23-2024 Erythrocyte distribution width (RBC) [Ratio] 14.4 % 11.6-14.6 [facility] Erythrocyte distribution wid th standard deviationOrdered By: Ruiz Luo on 08-23-2024 Erythrocyte distribution width (RBC) [Ratio] 52.3 fl High 35.1-43.9 [facility] Glomerular filtration rate ( GFR) estimation/1.73 sq m using serum, plasma, or whole bOrdered By: Ruiz Luo on 08-23-2024 GFR/1.73 sq M.predicted among non-blacks MDRD (S/P/Bld) [Vol rate/Area] 58 mL/min/{1.73_m2} Low >60 [facility] Comment on above: mL/min/1.73m2 CKD-EP I Creatinine Equation (2020) Hematocrit Auto (Bld) [Volum e fraction]Ordered By: Ruiz Luo on 08-23-2024 Hematocrit (Bld) [Volume fraction] 34.7 % Low 37-47 [facility] Hemoglobin measurementOrdere d By: Ruiz Luo on 08-23-2024 Hemoglobin (Bld) [Mass/Vol] 11.6 g/dL Low 12.0-15.0 [facility] Immature granulocytes/100 WB C Auto (Bld)Ordered By: Ruiz Luo on 08-23-2024 Immature granulocytes/100 WBC (Bld) 0.500 % 0.0-0.9 [facility] Comment on above: IG% - Immature Granu locytes (promyelocytes, myelocytes and metamyelocytes) > 1% indicates that a LEFT SHIFT is Present. L499.0042on 08-23-2024 Trop T High Sen Normal <=14 [facility] Comment on above: Result Comment: Alecia llamas via OM: Ordered Performed By: #### M 100.2200 #### [facility] [address] [place], [place], [address] L501.4021on 08-23-2024 Trop T High Sen 12 ng/L Normal <=14 [facility] Comment on above: Performed By: #### M 100.2200 #### [facility] [address] [place], [address] MCV (mean corpuscular volume ) determinationOrdered By: Ruiz Luo on 08-23-2024 MCV (RBC) [Entitic vol] 97.7 fL 81-[address] [facility] Mean corpuscular hemoglobin (MCH) determinationOrdered By: Ruiz Luo on 08-23-2024 MCH (RBC) [Entitic mass] 32.7 pg High 27.0-32.0 [facility] Mean corpuscular hemoglobin concentration (MCHC) determinationOrdered By: Ruiz Luo on 08-23-2024 MCHC (RBC) [Mass/Vol] 33.4 g/dL 32-36 [facility] Mean platelet volume determi nationOrdered By: Ruiz Luo on 08-23-2024 Platelet mean volume (Bld) [Entitic vol] 11.2 fL 6.2-12.0 [facility] Monocyte percentageOrdered B y: Ruiz Luo on 08-23-2024 Monocytes/100 WBC (Bld) 10.8 % High 0-[address] [facility] Neutrophil percentageOrdered By: Ruiz Luo on 08-23-2024 Neutrophils/100 WBC (Bld) 58.5 % 47-70 [facility] Nucleated red blood cell per centageOrdered By: Ruiz Luo on 08-23-2024 Nucleated RBC/100 WBC (Bld) [Ratio] 0 % 0-5 [facility] Platelet countOrdered By: Karey Luo on 08-23-2024 Platelets (Bld) [#/Vol] 203 10*3/uL 150-450 [facility] Potassium measurement (mass/ volume)Ordered By: Ruiz Luo on 08-23-2024 Potassium (Unsp spec) [Mass/Vol] 4.3 mmol/L 3.3-5.1 [facility] RBC Auto (Bld) [#/Vol]Ordere d By: Ruiz Luo on 08-23-2024 RBC (Bld) [#/Vol] 3.55 10*6/uL Low 4.2-5.4 [facility] Serum creatinine measurement (mass/volume)Ordered By: Ruiz Luo on 08-23-2024 Creatinine [Mass/Vol] 0.94 mg/dL 0.70-1.20 [facility] Serum glucose measurement (m ass/volume)Ordered By: Ruiz Luo on 08-23-2024 Glucose [Mass/Vol] 108 mg/dL High 70-99 [facility] Serum or plasma calcium bony urement (mass/volume)Ordered By: Ruiz Luo on 08-23-2024 Calcium [Mass/Vol] 9.5 mg/dL 7.6-11.0 [facility] Serum or plasma urea nitroge n measurement (mass/volume)Ordered By: Ruiz Luo on 08-23-2024 Urea nitrogen [Mass/Vol] 20 mg/dL High 4-19 [facility] Sodium levelOrdered By: Indio Luo on 08-23-2024 Sodium [Moles/Vol] 137 mmol/L 133-145 [facility] Troponin T.cardiac [Mass/vol ume] in Serum or Plasma by High sensitivity methodOrdered By: Ruiz Luo on 08-23-2024 Troponin T.cardiac High sensitivity method [Mass/Vol] 12 ng/L <14 [facility] White blood cell (WBC) count Ordered By: Ruiz Luo on 08-23-2024 WBC (Bld) [#/Vol] 4.2 10*3/uL Low 4.4-11.0 [facility] Echocardiogram study reportO rdered By: Octavio Lopez on 07-18-2024 Study report [facility] [address] [place] [address] Echo Complete 07/17/24 0905 MR#: [id number] Acct: [id number] Name: GINA WORTHINGTON Rep #:[id number] : 1935 89 From: Octavio Ibrahim Attending Dr: ANDREA Wills Status: REG CLI Ordering Dr: Anali Daniel Date: 07/17/24 Location: [facility] Sex: F C Admitted: Reason For [...] ~ Date Dictated: 07/17/24904 Date Transcribed: 07/18/241509 Dye Automation Operator: Signed [facility] Work Phone: Echo Completeon 07-17-2024 Echo Complete [facility] [address] [place] [address] Echo Complete 07/17/24904 MR#: [id number] Acct: [id number] Name: GINA WORTHINGTON Rep #: [id number] : 1935 89 From: Octavio Lopez MD Attending Dr: ANDREA Wills Status: REG CLI Ordering Dr: Anali Daniel PA Date: 07/05 05/29 Location: [facility] Sex: F C Admitted: Reason For [...] sec Doppler Measurements Calculations MV E max adrina: 110.4 cm/sec Lat Peak E' Adrian: 5.6 [...] 1510 Transcriptioni (more content not included)... Normal [facility] Cardiology Visit Reporton Cardiology Visit Report [facility] [address] [place] [address] OFFICE VISIT Date of Service: 06/21/24 MR#: [id number] Acct: [id number] Name: GINA WORTHINGTON Rep #: [id number] : 1935 Provider: ANDREA Howard Age/Sex: 89/F [place] [facility] Status: Signed HPI HPI History of [...] locally and wish to be referred to [facility] for further evaluation. Due to wait time, she contacted [facility] team and scheduled an appointment. She has completed chest CTA. She was referred to their valve team. She is established with the cardiothoracic department at [facility] on 01/31/2024. On 02/08/2024 patient [...] last night Intake Visit Reasons: BP Issues Legislative Correspondent Required: No Accompanied by: Daughter Is patient [...] (valve) stenosis Hyperlipidemia Atherosclerotic heart disease of [place] coronary artery without angina pectoris Surgical History [...] caffeine: No (more content not included)... [facility] Absolute lymphocyte countOrd ered By: Anali Daniel on 06-05-2024 Lymphocytes Auto (Unsp spec) [#/Vol] 1.48 10*3/uL 0.83-4.51 [facility] Absolute neutrophil countOrd ered By: Anali Daniel on 06-05-2024 Neutrophils (Bld) [#/Vol] 3.1 10*3/uL 2.0-7.7 [facility] Automated lymphocyte count a s percentage of total leukocytesOrdered By: Anali Daniel on 06-05-2024 Lymphocytes/100 WBC Auto (Unsp spec) 27.8 % 19-41 [facility] Basophil percentageOrdered B y: Anali Daniel on 06-05-2024 Basophils/100 WBC (Bld) 0.8 % 0-[address] [facility] CBC W/Diff, Automatedon Absolute Lymph 1.48 X10 3/uL Normal 0.83-4.51 [facility] Comment on above: Performed By: #### M 100.8357 #### [facility] [place], [address] Absolute Neut 3.1 X10 3/uL Normal 2.0-7.7 [facility] Comment on above: Performed By: #### M 100.2200 #### [facility] [address] [place], [address] Basophils/100 WBC (Bld) 0.8 % Normal 0-[address] [facility] Comment on above: Performed By: #### M 100.2200 #### [facility] [address] [place], [address] Eosinophils/100 WBC (Bld) 1.9 % Normal 0-5 [facility] Comment on above: Performed By: #### M 100.2200 #### [facility] [address] [place], [address] Erythrocyte distribution width (RBC) [Ratio] 14.5 % Normal 11.6-14.6 [facility] Comment on above: Performed By: #### M 100.2200 #### [facility] [address] [place], [address] Hematocrit (Bld) [Volume fraction] 33.0 % Low 37-47 [facility] Comment on above: Performed By: #### M 100.2200 #### [facility] [address] [place], [address] Hemoglobin (Bld) [Mass/Vol] 10.7 g/dL Low 12.0-15.0 [facility] Comment on above: Performed By: #### M 100.2200 #### [facility] [address] [place], [address] IG% 0.400 Normal 0.0-0.9 [facility] Comment on above: Result Comment: IG% - Immature Granulocytes (promyelocytes, myelocytes and metamyelocytes) > 1% indicates that a LEFT SHIFT is Present. Performed By: #### M 100.2200 #### [facility] [address] [place], [address] Lymphocytes/100 WBC (Bld) 27.8 % Normal 19-41 [facility] Comment on above: Performed By: #### M 100.2200 #### [facility] [address] [place], [address] MCH (RBC) [Entitic mass] 31.8 pg Normal 27.0-32.0 [facility] Comment on above: Performed By: #### M 100.2200 #### [facility] [address] [place], [address] MCHC (RBC) [Mass/Vol] 32.4 g/dL Normal 32-36 [facility] Comment on above: Performed By: #### M 100.2200 #### [facility] [address] [place], [address] MCV (RBC) [Entitic vol] 98.2 fL Normal 81-99 [facility] Comment on above: Performed By: #### M 100.2200 #### [facility] [address] [place], [address] Monocytes/100 WBC (Bld) 10.2 % High 0-10 [facility] Comment on above: Performed By: #### M 100.2200 #### [facility] [address] [place], [address] Neutrophils/100 WBC (Bld) 58.9 % Normal 47-70 [facility] Comment on above: Performed By: #### M 100.2200 #### [facility] [address] [place], [address] Nucleated RBC (Bld) [#/Vol] 0 10*3/uL Normal 0-5 [facility] Comment on above: Performed By: #### M 100.2200 #### [facility] [address] [place], [address] Platelet mean volume (Bld) [Entitic vol] 11.0 fL Normal 6.2-12.0 [facility] Comment on above: Performed By: #### M 100.2200 #### [facility] [address] [place], [address] Platelets (Bld) [#/Vol] 197 10*3/uL Normal 150-450 [facility] Comment on above: Performed By: #### M 100.2200 #### [facility] [address] [place], [address] RBC (Bld) [#/Vol] 3.36 10*6/uL Low 4.2-5.4 [facility] Comment on above: Performed By: #### M 100.2200 #### [facility] [address] [place], [address] RDW SD 51.4 fl High 35.1-43.9 [facility] Comment on above: Performed By: #### M 100.2200 #### [facility] [address] [place], [address] WBC (Bld) [#/Vol] 5.3 10*3/uL Normal 4.4-11.0 [facility] Comment on above: Performed By: #### M 100.2200 #### [facility] [address] [place], [address] Cardiology Visit Reporton Cardiology Visit Report [facility] [address] [place] [address] OFFICE VISIT Date of Service: 06/05/24 MR#: [id number] Acct: [id number] Name: GINA WORTHINGTON Rep #: [id number] : 1935 Provider: ANDREA Howard Age/Sex: 89/F Location: [facility] [place] Status: Signed HPI HPI History of Present [...] locally and wish to be referred to [facility] for further evaluation. Due to wait time, she contacted [facility] team and scheduled an appointment. She has completed chest CTA. She was referred to their valve team. She is established with the cardiothoracic department at [facility] on 01/31/2024. On 02/08/2024 patient [...] do cardiac rehab while she was in [facility]. 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 [facility] Eosinophil percentageOrdered By: Anali Daniel on 06-05-2024 Eosinophils/100 WBC (Bld) 1.9 % 0-5 [facility] Erythrocyte distribution wid th (RBC) [Ratio]Ordered By: Anali Daniel on 06-05-2024 Erythrocyte distribution width (RBC) [Entitic vol] 51.4 fL High 35.1-43.9 [facility] Erythrocyte distribution wid th ratioOrdered By: Anali Daniel on 06-05-2024 Erythrocyte distribution width (RBC) [Ratio] 14.5 % 11.6-14.6 [facility] Erythrocyte distribution wid th standard deviationOrdered By: Anali Daniel on 06-05-2024 Erythrocyte distribution width (RBC) [Ratio] 51.4 fl High 35.1-43.9 [facility] Hematocrit Auto (Bld) [Volum e fraction]Ordered By: Aanli Daniel on 06-05-2024 Hematocrit (Bld) [Volume fraction] 33.0 % Low 37-47 [facility] Hemoglobin measurementOrdere d By: Anali Daniel on 06-05-2024 Hemoglobin (Bld) [Mass/Vol] 10.7 g/dL Low 12.0-15.0 [facility] Immature granulocytes/100 WB C Auto (Bld)Ordered By: Anali Daniel on 06-05-2024 Immature granulocytes/100 WBC (Bld) 0.400 % 0.0-0.9 [facility] Comment on above: IG% - Immature Granu locytes (promyelocytes, myelocytes and metamyelocytes) > 1% indicates that a LEFT SHIFT is Present. Lymphocytes Auto (Unsp spec) [#/Vol]Ordered By: Anali Daniel on 06-05-2024 Lymphocytes (Bld) [#/Vol] 1.48 10*3/uL 0.83-4.51 [facility] Lymphocytes/100 WBC Auto (Un sp spec)Ordered By: Anali Daniel on 06-05-2024 Lymphocytes/100 WBC (Bld) 27.8 % 19-41 [facility] MCV (mean corpuscular volume ) determinationOrdered By: Anali Daniel on 06-05-2024 MCV (RBC) [Entitic vol] 98.2 fL 81-[address] [facility] Mean corpuscular hemoglobin (MCH) determinationOrdered By: Anali Daniel on 06-05-2024 MCH (RBC) [Entitic mass] 31.8 pg 27.0-32.0 [facility] Mean corpuscular hemoglobin concentration (MCHC) determinationOrdered By: Anali Daniel on 06-05-2024 MCHC (RBC) [Mass/Vol] 32.4 g/dL 32-36 [facility] Mean platelet volume determi nationOrdered By: Anali Daniel on 06-05-2024 Platelet mean volume (Bld) [Entitic vol] 11.0 fL 6.2-12.0 [facility] Monocyte percentageOrdered B y: Anali Daniel on 06-05-2024 Monocytes/100 WBC (Bld) 10.2 % High 0-[address] [facility] Neutrophil percentageOrdered By: Anali Daniel on 06-05-2024 Neutrophils/100 WBC (Bld) 58.9 % 47-70 [facility] Nucleated red blood cell per centageOrdered By: Anali Daniel on 06-05-2024 Nucleated RBC/100 WBC (Bld) [Ratio] 0 % 0-5 [facility] Platelet countOrdered By: Jessica Daniel on 06-05-2024 Platelets (Bld) [#/Vol] 197 10*3/uL 150-450 [facility] RBC Auto (Bld) [#/Vol]Ordere d By: Anali Daniel on 06-05-2024 RBC (Bld) [#/Vol] 3.36 10*6/uL Low 4.2-5.4 [facility] White blood cell (WBC) count Ordered By: Anali Daniel on 06-05-2024 WBC (Bld) [#/Vol] 5.3 10*3/uL 4.4-11.0 [facility] Echo Completeon 03-12-2024 Echo Complete [facility] [place] [address] [place] [address] Echo Complete 03/12/24 1308 MR#: [id number] Acct: [id number] Name: GINA WORTHINGTON Rep #: [id number] : 1935 88 From: Octavio Lopez MD Attending Dr: TETE LANG Status: REG CLI Ordering Dr: TETE LANG Date: 03/12/24 Location: [facility] Sex: F C Admitted: Reason For [...] Dictated: 03/12/24 1308 Date Transcribed: 03/12/24 1503 Dye Automation Operator: Signed Normal [facility] Echocardiogram study reportO rdered By: Octavio Lopez on 03-12-2024 Study report [facility] [address] [place] [address] Echo Complete 03/12/24 1308 MR#: [id number] Acct: [id number] Name: GINA WORTHINGTON Rep #:[id number] : 1935 88 From: Octavio Ibrahim Attending Dr: TETE LANG Status: REG CLI Ordering Dr: TETE LANG [place] e: 03/12/24 Location: [facility] Sex: F C Admitted: Reason For [...] Dictated: 03/12/24 1308 Date Transcribed: 03/12/24 1503 Dye Automation Operator: Signed [facility] Work Phone: Urine Cultureon 02-27-2024 UR Presumptive E. coli [place] Count >100,000 Enterococcus faecalis Enterococcus faecalis Presumptive [...] R Vancomycin Islt ALEJO 2 S Normal [facility] Comment on above: Performed By: #### M 100.2200 #### [facility] [address] [place], [place], [address] Urine cultureOrdered By: Maryam Liu on 02-24-2024 Bacteria identified Cx Nom (U) Presumptive E. coli Abnormal [facility] Bacteria identified Cx Nom (U) Enterococcus faecalis Abnormal [facility] Cardiology Visit Reporton Cardiology Visit Report [facility] [address] [facility] [facility] [address] [place] [address] OFFICE VISIT Date of Service: 02/22/24 MR#: [id number] Acct: [id number] Name: GINA WORTHINGTON Rep #: [id number] : 1935 Provider: ANDREA Howard Age/Sex: 88/F [place] [facility] Status: Signed HPI HPI History of [...] locally and wish to be referred to [facility] for further evaluation. Due to wait time, she contacted [facility] team and scheduled an appointment. She has completed chest CTA. She was referred to their valve team. She is established with the cardiothoracic department at [facility] on 01/31/2024. On 02/08/2024 patient [...] Patient has a virtual follow-up with the [facility] in a few weeks. She is also [...] air Intake Visit Reasons: 6 M FU Legislative Correspondent Required: No Accompanied by: Daughter Is patient [...] and left forearm numbness since recent TAVR. [facility] Medical History GERD (gastroesophageal reflux disease) Obesity Deep vein thrombosis Essential (primary) hypertension Nonrheumatic aortic (valve) stenosis Hyperlipidemia Atherosclerotic heart disease of [place] coronary artery without angina p (more content not included)... [facility] Emergency Department Summary on 02-04-2024 Emergency Department Summary [facility] Medical Records Department [address] [place] [address] Emergency Department Summary 02/04/24 MR#: [id number] Acct: [id number] Name: GINA WORTHINGTON Rep #: [id number] : 1935 88 From: Steve Witt PCP: [...] having an upcoming vascular cardiology appointment in [place] in 5 days. History of aortic stenosis. She denies any leg swelling with this. 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 Denies fever or chills. Currently her leg is normal. Prior similar symptoms: Yes PFSH [facility] Medical History GERD (gastroesophageal reflux disease) Obesity Deep vein thrombosis Essential (primary) hypertension Nonrheumatic aortic (valve) stenosis Hyperlipidemia Atherosclerotic heart disease of [place] coronary artery without angina pectoris Home Medications [...] to i (more content not included)... [facility] .Auto Diffon 01-23-2024 Basophil, Absolute 0.0 10 3/mcL Normal 0.0-0.3 [facility] Comment on above: Performed By: #### T GANESH, CBC, MDW, ANEU, ADIFF, GFR, MG, PBNP, CMP #### [address] [address] Basophils/100 WBC (Bld) 0.7 % Normal 0.0-2.5 [facility] Comment on above: Performed By: #### T GANESH, CBC, EFFIE, ANEU, ADIFF, GFR, MG, PBNP, CMP #### [address] [address] Eosinophil, Absolute 0.1 10 3/mcL Normal 0.0-0.7 [facility] Comment on above: Performed By: #### T GANESH, CBC, EFFIE, ANEU, ADIFF, GFR, MG, PBNP, CMP #### [address] [address] Eosinophils/100 WBC (Bld) 2.1 % Normal 0.0-6.0 [facility] Comment on above: Performed By: #### T GANESH, TONJA, EFFIE, ANEU, ADIFF, GFR, MG, PBNP, CMP #### [address] [address] Lymphocyte, Absolute 1.8 10 3/mcL Normal 0.9-4.3 [facility] Comment on above: Performed By: #### T GANESH, TONJA, EFFIE, ANEU, ADIFF, GFR, MG, PBNP, CMP #### [address] [address] Lymphocytes/100 WBC (Bld) 40.2 % High 20.0-40.0 [facility] Comment on above: Performed By: #### T GANESH, CBC, MDW, ANEU, ADIFF, GFR, MG, PBNP, CMP #### [address] [address] Monocyte, Absolute 0.5 10 3/mcL Normal 0.1-1.4 [facility] Comment on above: Performed By: #### T GANESH, CBC, MDW, ANEU, ADIFF, GFR, MG, PBNP, CMP #### [address] [address] Monocytes/100 WBC (Bld) 11.7 % Normal 2.0-13.0 [facility] Comment on above: Performed By: #### T GANESH, CBC, MDW, ANEU, ADIFF, GFR, MG, PBNP, CMP #### [address] [address] Neutrophils/100 WBC (Bld) 45.3 % Low 50.0-75.0 [facility] Comment on above: Performed By: #### T GANESH, TONJA, MDW, ANEU, ADIFF, GFR, MG, PBNP, CMP #### [address] [address] .GFRon 01-23-2024 GFR >60 [facility] Comment on above: Result Comment: GFR [...] MDW, ANEU, ADIFF, GFR, MG, PBNP, CMP ####[address] [address] GFR Non- >60 Normal [facility] Comment on above: Result [...] MDW, ANEU, ADIFF, GFR, MG, PBNP, CMP ####[address] [address] .MDWon 01-23-2024 Monocyte Distribution Width 17.09 Normal 0.00-20.00 [facility] Comment on above: Result Comment: For ED adult patients suspected of sepsis, MDW<=20.0 does not rule out sepsis or risk of sepsis Performed By: #### T GANESH, CBC, MDW, ANEU, ADIFF, GFR, MG, PBNP, CMP #### [address] [address] .NEUABSon 01-23-2024 Neutrophil, Absolute 2.0 10 3/mcL Low 2.3-8.1 [facility] Comment on above: Performed By: #### T GANESH, TONJA, MDW, ANEU, ADIFF, GFR, MG, PBNP, CMP #### [address] [address] 12 Lead EKG performed by [facility] on 01-23-2024 12 Lead EKG performed by [facility] [address] [place] [address] 12 Lead EKG performed by [facility] 01/23/24 1251 MR#: [id number] Acct: [id number] Name: GINA WORTHINGTON Rep #: [id number] : 1935 88 From: Erik H Roof DREDGING INSPECTOR DREDGING INSPECTOR-C Attending Dr: ROLANDO PerezC Status: DEP AMB Ordering Dr: Erik Lucas NP DREDGING INSPECTOR-C Date: 01/23/24 [place]: [facility] Sex: F C Admitted: BMS/12 Lead EKG performed by [facility] ECG Report Interpretation ------Sinus Rhythm -Nonspecific ST depression -Nondiagnostic. ABNORMAL Electronically signed on 01/24/2024 at 08:28 by Octavio Lopezwood Software Version [id number] 01/24/24 0832 Date Erik Lucas DREDGING INSPECTOR DREDGING INSPECTOR-C CC: Dr. Amadou Liu MD Date Dictated: 01/23/24 1251 Date Transcribed: 01/23/24 125 Dye Automation Operator: LIAM Signed Normal [facility] CBCon 01-23-2024 Erythrocyte distribution width (RBC) [Ratio] 14.9 % Normal 11.5-15.5 [facility] Comment on above: Performed By: #### T TONJA ANDERSEN MDW, ANEU, ADIFF, GFR, MG, PBNP, CMP #### [address] [address] Hematocrit (Bld) [Volume fraction] 41.0 % Normal 34.0-46.0 [facility] Comment on above: Performed By: #### T TONJA ANDERSEN MDW, ANEU, ADIFF, GFR, MG, PBNP, CMP #### [address] [address] Hgb 13.6 G/dL Normal 12.0-16.0 [facility] Comment on above: Performed By: #### T TONJA ANDERSEN MDW, ANEU, ADIFF, GFR, MG, PBNP, CMP #### [address] [address] MCH (RBC) [Entitic mass] 32.9 pg Normal 27.0-33.0 [facility] Comment on above: Performed By: #### T GANESH, CBC, MDW, ANEU, ADIFF, GFR, MG, PBNP, CMP #### [place] [address] MCHC 33.2 G/dL Normal 32.0-36.0 [facility] Comment on above: Performed By: #### T GANESH, CBC, MDW, ANEU, ADIFF, GFR, MG, PBNP, CMP #### [place] [address] MCV (RBC) [Entitic vol] 99.1 fL High 80.0-99.0 [facility] Comment on above: Performed By: #### T GANESH, CBC, MDW, ANEU, ADIFF, GFR, MG, PBNP, CMP #### [place] [address] Platelet 164 10 3/mcL Normal 150-450 [facility] Comment on above: Performed By: #### T GANESH, CBC, MDW, ANEU, ADIFF, GFR, MG, PBNP, CMP #### [place] [address] Platelet mean volume (Bld) [Entitic vol] 10.1 fL Normal 6.6-10.5 [facility] Comment on above: Performed By: #### T GANESH, CBC, MDW, ANEU, ADIFF, GFR, MG, PBNP, CMP #### [place] [address] RBC 4.14 10 6/mcL Normal 4.10-5.30 [facility] Comment on above: Performed By: #### T GANESH, CBC, MDW, ANEU, ADIFF, GFR, MG, PBNP, CMP #### [place] [address] WBC 4.5 10 3/mcL Normal 4.5-10.8 [facility] Comment on above: Performed By: #### T GANESH, CBC, MDW, ANEU, ADIFF, GFR, MG, PBNP, CMP #### [place] [address] CMPon 01-23-2024 Albumin Level 3.5 G/dL Normal 3.2-4.8 [facility] Comment on above: Performed By: #### T GANESH, CBC, MDW, ANEU, ADIFF, GFR, MG, PBNP, CMP ####[address] [address] Albumin/Globulin [Mass ratio] 1.0 {ratio} Normal 0.9-1.6 [facility] Comment on above: Performed By: #### T GANESH, CBC, MDW, ANEU, ADIFF, GFR, MG, PBNP, CMP ####[address] [address] ALP [Catalytic activity/Vol] 49 U/L Normal 38-126 [facility] Comment on above: Performed By: #### T GANESH, CBC, MDW, ANEU, ADIFF, GFR, MG, PBNP, CMP ####[address] [address] ALT [Catalytic activity/Vol] 9 U/L Low 10-49 [facility] Comment on above: Performed By: #### T GANESH, CBC, MDW, ANEU, ADIFF, GFR, MG, PBNP, CMP ####[place] [id number] AST [Catalytic activity/Vol] 21 U/L Normal 8-34 [facility] Comment on above: Performed By: #### T GANESH, CBC, MDW, ANEU, ADIFF, GFR, MG, PBNP, CMP ####[place] [id number] Bili Total 0.50 mg/dL Normal 0.20-1.20 [facility] Comment on above: Result Comment: Use of this assay is not recommended for patients undergoing treatment with eltrombopag due to the potential for falsely elevated results. Performed By: #### T GANESH, CBC, MDW, ANEU, ADIFF, GFR, MG, PBNP, CMP ####[address] [address] BUN/Creatinine Ratio 18.1 ratio Normal 10.0-22.0 [facility] Comment on above: Performed By: #### T GANESH, CBC, MDW, ANEU, ADIFF, GFR, MG, PBNP, CMP ####[address] [address] Calcium [Mass/Vol] 9.8 mg/dL Normal 8.7-10.4 [facility] Comment on above: Performed By: #### T GANESH, CBC, MDW, ANEU, ADIFF, GFR, MG, PBNP, CMP ####[address] [address] Chloride [Moles/Vol] 107 mmol/L Normal 98-110 [facility] Comment on above: Performed By: #### T GANESH, CBC, MDW, ANEU, ADIFF, GFR, MG, PBNP, CMP ####[address] [address] CO2 [Moles/Vol] 25 mmol/L Normal 22-32 [facility] Comment on above: Performed By: #### T GANESH, CBC, MDW, ANEU, ADIFF, GFR, MG, PBNP, CMP ####[address] [address] Creatinine [Mass/Vol] 0.83 mg/dL Normal 0.50-1.20 [facility] Comment on above: Result Comment: Test ing performed on Goo[employer] analyzer using enzymatic creatinine methodology. Performed By: #### T GANESH, CBC, MDW, ANEU, ADIFF, GFR, MG, PBNP, CMP ####[place] [address] Electrolyte Balance 7.0 mEq/L Normal 4.0-15.0 [facility] Comment on above: Performed By: #### T GANESH, CBC, MDW, ANEU, ADIFF, GFR, MG, PBNP, CMP ####[address] [address] Globulin 3.6 G/dL Normal 1.5-3.8 [facility] Comment on above: Performed By: #### T GANESH, CBC, MDW, ANEU, ADIFF, GFR, MG, PBNP, CMP ####[address] [address] Glucose [Mass/Vol] 93 mg/dL Normal 82-115 [facility] Comment on above: Performed By: #### T GANESH, CBC, MDW, ANEU, ADIFF, GFR, MG, PBNP, CMP ####[place] [address] Potassium [Moles/Vol] 4.4 mmol/L Normal 3.5-5.0 [facility] Comment on above: Performed By: #### T GANESH, CBC, MDW, ANEU, ADIFF, GFR, MG, PBNP, CMP ####[place] [id number] Sodium [Moles/Vol] 139 mmol/L Normal 136-145 [facility] Comment on above: Performed By: #### T GANESH, CBC, MDW, ANEU, ADIFF, GFR, MG, PBNP, CMP ####[place] [address] Total Protein 7.1 G/dL Normal 5.7-8.2 [facility] Comment on above: Performed By: #### T GANESH, CBC, MDW, ANEU, ADIFF, GFR, MG, PBNP, CMP ####[place] [address] Urea nitrogen [Mass/Vol] 15.0 mg/dL Normal 8.0-22.0 [facility] Comment on above: Performed By: #### T GANESH, CBC, MDW, ANEU, ADIFF, GFR, MG, PBNP, CMP ####[place] [address] CT HEAD OR BRAIN W/O CONTRAS Ton [...] 01/23/2024 4:06:01 AM Ordering Provider: KASSANDRA MITTAL [facility] MAIN Cardiology Visit Reporton Cardiology Visit Report [facility] [address] [place] [address] OFFICE VISIT Date of Service: 01/23/24 MR#: [id number] Acct: [id number] Name: GINA WORTHINGTON Rep #: [id number] : 1935 Provider: GENA bennett Age/Sex: 88/F Location: [facility] Status: Signed HPI HPI History of [...] locally and wish to be referred to [facility] for further evaluation. Due to wait time, she contacted [facility] team and scheduled an appointment. She has completed chest CTA. She was seen at [facility] Emergency Department for chest pain. Work-up was [...] Intake Visit Reasons: chest tightness per [employer] Legislative Correspondent Required: No Is patient in pain?: No [...] you fallen in the past year?: No [facility] Medical History (Updated 01/10/24 @ 19:36 by Megha Isidro) GERD (gastroesophageal reflux disease) Obesity Deep vein thrombosis Essential (primary) hypertension Nonrheumatic aortic (valve) stenosis Hyperlipidemia Atherosclerotic heart disease of [place] coronary artery without angina pectoris Surgical History [...] or p (more content not included)... Normal [facility] LABORATORYOrdered By: SYSTEM SYSTEM on 01-23-2024 Troponin I.cardiac DL <= 0.01 ng/mL [Mass/Vol] 11 ng/L Normal 0 - 34 ng/L ADM SS Comment on above: Interpretive Data: High Sensitive Troponin I Reference Ranges: Female: 0-34 ng/L Male: 0-54 ng/L Testing performed on [employer] IM analyzer using direct chemiluminescent technology. Albumin [...] above: Interpretive Data: T esting performed on [employer] CH analyzer using enzymatic creatinine methodology. Electrolyte [...] (S/P/Bld) [Vol rate/Area] ml/min/1.73sqm Invalid Interpretation Code [facility] Comment on above: Interpretive Data: GFR [...] (S/P/Bld) [Vol rate/Area] ml/min/1.73sqm Invalid Interpretation Code [facility] Comment on above: Interpretive Data: GFR [...] ng/L Male: 0-54 ng/L Testing performed on [employer] IM analyzer using direct chemiluminescent technology. Urea nitrogen [Mass/Vol] 15.0 mg/dL Normal 8.0 - 22.0 mg/dL ADM SS Urea nitrogen/Creatinine [Mass ratio] 18.1 ratio Normal 10.0 - 22.0 ratio ADM SS WBC (Bld) [#/Vol] 4.5 103/mcL Normal 4.5 - 10.8 10^3/mcL Workflow SS MGon 01-23-2024 Magnesium [Mass/Vol] 1.9 mg/dL Normal 1.6-2.4 [facility] Comment on above: Performed By: #### Anton ANDERSEN, CBC, MDW, ANEU, ADIFF, GFR, MG, PBNP, CMP #### [address] [address] PBNPon 01-23-2024 Natriuretic peptide B (Bld) [Mass/Vol] 1383 pg/mL Normal 0-1800 [facility] Comment on above: Performed By: ###Frederick ANDERSEN, CBC, MDW, ANEU, ADIFF, GFR, MG, PBNP, CMP #### [address] [address] TROPHSon 01-23-2024 High Sensitivity Troponin I 11 ng/L Normal 0-34 [facility] Comment on above: Result Comment: High Sensitive Troponin I Reference Ranges: Female: 0-34 ng/L Male: 0-54 ng/L Testing performed on [employer] IM analyzer using direct chemiluminescent technology. Performed By: ###Frederick ANDERSEN #### [address] [address] High Sensitivity Troponin I 11 ng/L Normal 0-34 [facility] Comment on above: Result Comment: High Sensitive Troponin I Reference Ranges: Female: 0-34 ng/L Male: 0-54 ng/L Testing performed on [employer] IM analyzer using direct chemiluminescent technology. Performed By: #### T ROPHS, CBC, MDW, ANEU, ADIFF, GFR, MG, PBNP, CMP #### [place] [id number] XR CHEST 1 VIEWon 01-23-2024 XR CHEST [...] 01/23/2024 3:33:33 AM Ordering Provider: KASSANDRA MITTAL [facility] MAIN 12 Lead EKGon 01-10-2024 12 Lead EKG [facility] Cardiovascular Services [address] [place] [address] 12 Lead EKG 01/10/241924 MR#: [id number] Acct: [id number] Name: GINA WORTHINGTON Rep #: [id number] : 1935 88 From: Pieter Cook MD [...] ) Borderline ECG Confirmed by Pieter Cook ([id number]), newspaper editor CANDIE PEMBERTON ([id number]) on 01/11/2024 1:08:40 PM Referred By: Confirmed By: Pieter Cook 01/11/24 1308 Date Pieter Cook MD CC: Dr. Amadou Liu MD; Dr. Hiram Bill DO Signed Normal [facility] Basic Metabolic Profile (BMP )on 01-10-2024 BUN/CRE 13.4 RATIO Normal 10-20 [facility] Comment on above: Order Comment: 'TROP ' Serial specimen #1, #2 or #3: 11Y Performed By: #### M 100.2200 #### [facility] [address] [place], [address] CA,Total 9.4 mg/dL Normal 8.5-10.1 [facility] Comment on above: Order Comment: 'TROP ' Serial specimen #1, #2 or #3: 11Y Performed By: #### M 100.2200 #### [facility] [address] [place], [address] Chloride [Moles/Vol] 107 mmol/L Normal 98-107 [facility] Comment on above: Order Comment: 'TROP ' Serial specimen #1, #2 or #3: 11Y Performed By: #### M 100.2200 #### [facility] [address] [place], [address] CO2 [Moles/Vol] 26.0 mmol/L Normal 21.0-32.0 [facility] Comment on above: Order Comment: 'TROP ' Serial specimen #1, #2 or #3: 11Y Performed By: #### M 100.2200 #### [facility] [address] [place], [address] Creatinine [Mass/Vol] 0.90 mg/dL Normal 0.55-1.02 [facility] Comment on above: Order Comment: 'TROP ' Serial specimen #1, #2 or #3: 11Y Result Comment: The validity of the calculated GFR GFRAA in patients over 70 years has not been determined. Clinical correlation is essential. Performed By: #### M 100.2200 #### [facility] [address] [place], [address] ECRCL 39.40 ml/min Normal [facility] Comment on above: Order Comment: 'TROP ' Serial specimen #1, #2 or #3: 11Y Performed By: #### M 100.2200 #### [facility] [address] [place], [address] EST GFR - AA 76 mL/min Normal >60 [facility] Comment on above: Order Comment: 'TROP ' Serial specimen #1, #2 or #3: 11Y Result Comment: Afri can Citizen [place] GFR Calc Performed By: #### M 100.2200 #### [facility] [address] [place], [address] GAP 7 Normal 5-15 [facility] Comment on above: Order Comment: 'TROP ' Serial specimen #1, #2 or #3: 11Y Performed By: #### M 100.2200 #### [facility] [address] [place], [address] GFR/1.73 sq M.predicted among non-blacks MDRD (S/P/Bld) [Vol rate/Area] 63 mL/min/{1.73_m2} Normal >60 [facility] Comment on above: Order Comment: 'TROP ' Serial specimen #1, #2 or #3: 11Y Result Comment: Non- GFR Calc Performed By: #### M 100.2200 #### [facility] [address] [place], [address] Glucose [Mass/Vol] 94 mg/dL Normal 74-106 [facility] Comment on above: Order Comment: 'TROP ' Serial specimen #1, #2 or #3: 11Y Performed By: #### M 100.2200 #### [facility] [address] [place], [address] Potassium [Moles/Vol] 3.9 mmol/L Normal 3.5-5.1 [facility] Comment on above: Order Comment: 'TROP ' Serial specimen #1, #2 or #3: 11Y Performed By: #### M 100.2200 #### [facility] [address] [place], [address] Sodium [Moles/Vol] 139 mmol/L Normal 136-145 [facility] Comment on above: Order Comment: 'TROP ' Serial specimen #1, #2 or #3: 11Y Performed By: #### M 100.2200 #### [facility] [address] [place], [address] Urea nitrogen [Mass/Vol] 12 mg/dL Normal 7-18 [facility] Comment on above: Order Comment: 'TROP ' Serial specimen #1, #2 or #3: 11Y Performed By: #### M 100.2200 #### [facility] [address] [place], [address] CBC W/Diff, Automatedon 11-0 5-2024 Absolute Lymph 2.10 X10 3/uL Normal 0.83-4.51 [facility] Comment on above: Performed By: #### M 100.2200 #### [facility] [address] [place], [address] Absolute Neut 2.0 X10 3/uL Normal 2.0-7.7 [facility] Comment on above: Performed By: #### M 100.2200 #### [facility] [address] [place], [address] Basophils/100 WBC (Bld) 0.9 % Normal 0-[address] [facility] Comment on above: Performed By: #### M 100.2200 #### [facility] [address] [place], [address] Eosinophils/100 WBC (Bld) 0.9 % Normal 0-5 [facility] Comment on above: Performed By: #### M 100.2200 #### [facility] [address] [place], [address] Erythrocyte distribution width (RBC) [Ratio] 14.1 % Normal 11.6-14.6 [facility] Comment on above: Performed By: #### M 100.2200 #### [facility] [address] [place], [address] Hematocrit (Bld) [Volume fraction] 38.9 % Normal 37-47 [facility] Comment on above: Performed By: #### M 100.2200 #### [facility] [address] [place], [address] Hemoglobin (Bld) [Mass/Vol] 13.1 g/dL Normal 12.0-15.0 [facility] Comment on above: Performed By: #### M 100.2200 #### [facility] [address] [place], [address] IG% 0.000 Normal 0.0-0.9 [facility] Comment on above: Result Comment: IG% - Immature Granulocytes (promyelocytes, myelocytes and metamyelocytes) > 1% indicates that a LEFT SHIFT is Present. Performed By: #### M 100.2200 #### [facility] [address] [place], [address] Lymphocytes/100 WBC (Bld) 46.1 % High 19-41 [facility] Comment on above: Performed By: #### M 100.2200 #### [facility] [address] [place], [address] MCH (RBC) [Entitic mass] 33.0 pg High 27.0-32.0 [facility] Comment on above: Performed By: #### M 100.2200 #### [facility] [address] [place], [address] MCHC (RBC) [Mass/Vol] 33.7 g/dL Normal 32-36 [facility] Comment on above: Performed By: #### M 100.2200 #### [facility] [address] [place], [address] MCV (RBC) [Entitic vol] 98.0 fL Normal 81-[address] [facility] Comment on above: Performed By: #### M 100.2200 #### [facility] [address] [place], [address] Monocytes/100 WBC (Bld) 9.4 % Normal 0-[address] [facility] Comment on above: Performed By: #### M 100.2200 #### [facility] [address] [place], [address] Neutrophils/100 WBC (Bld) 42.7 % Low 47-70 [facility] Comment on above: Performed By: #### M 100.2200 #### [facility] [address] [place], [address] Nucleated RBC (Bld) [#/Vol] 0 10*3/uL Normal 0-5 [facility] Comment on above: Performed By: #### M 100.2200 #### [facility] [address] [place], [address] Platelet mean volume (Bld) [Entitic vol] 11.2 fL Normal 6.2-12.0 [facility] Comment on above: Performed By: #### M 100.2200 #### [facility] [address] [place], [address] Platelets (Bld) [#/Vol] 224 10*3/uL Normal 150-450 [facility] Comment on above: Performed By: #### M 100.2200 #### [facility] [address] [place], [address] RBC (Bld) [#/Vol] 3.97 10*6/uL Low 4.2-5.4 [facility] Comment on above: Performed By: #### M 100.2200 #### [facility] [address] [place], [address] RDW SD 50.9 fl High 35.1-43.9 [facility] Comment on above: Performed By: #### M 100.2200 #### [facility] [address] [place], [address] WBC (Bld) [#/Vol] 4.6 10*3/uL Normal 4.4-11.0 [facility] Comment on above: Performed By: #### M 100.2200 #### [facility] [address] [place], [address] Chest 1 View (Portable)on Chest 1 View (Portable) [facility] Imaging Services [address] [place] [address] Chest 1 View (Portable) MR#: [id number] Acct: [id number] Name: GINA WORTHINGTNO Rep #: [id number] : 1935 F 88 From: Tino Cagle MD PCP: Dr. Amadou Liu MD Status: [facility] ER Study: Chest 1 View (Portable) Date of Exam: 01/10/24 Exam# [id number] Ordering Dr: Hiram Bill DO [id number] STUDY: X-RAY CHEST REASON FOR EXAM: Female, [...] Amadou Liu MD; Dr. Hiram Bill DO Dye Automation Operator: Signed Normal [facility] Emergency Department Summary on 01-10-2024 Emergency Department Summary [facility] Medical Records Department [address] [place] [address] Emergency Department Summary 01/10/24 MR#: [id number] Acct: [id number] Name: GINA WORTHINGTON Rep #: [id number] : 1935 88 From: Hiram Bill DO PCP: Dr. Amadou Liu MD Status:REG ER Location: ED HPI History of Present Illness Chief Complaint: Chest Pain [facility] Medical History (Updated 01/10/24 @ 19:36 by Megha Isidro) GERD (gastroesophageal reflux disease) Obesity Deep vein thrombosis Essential (primary) hypertension Nonrheumatic aortic (valve) stenosis Hyperlipidemia Atherosclerotic heart disease of [place] coronary artery without angina pectoris Home Medications [...] edema Ne (more content not included)... [facility] L501.4020on 01-10-2024 TROPONIN-I HS 12 pg/mL Normal 3.0-54.0 [facility] Comment on above: Result Comment: Pledebra leija Note: New Test Units and Gender Specific Reference Ranges. For more information see Policy Stat Procedure [place] High Sensitivity Troponin (TNIH) and attachments. Performed By: #### L 499.0043 #### [facility] [address] [place], [place], [id number] L501.5425on 01-10-2024 TROPONIN-I HS 12 pg/mL Normal 3.0-54.0 [facility] Comment on above: Order Comment: 'TROP ' Serial specimen #1, #2 or #3: 11Y Result Comment: Pledebra leija Note: New Test Units and Gender Specific Reference Ranges. For more information see Policy Stat Procedure [place] High Sensitivity Troponin (TNIH) and attachments. Performed By: #### M 100.2200 #### [facility] [address] [place], [address] CBC W Auto Differential pane l (Bld)on 01-07-2024 Basophils (Bld) [#/Vol] 0.03 10*3/uL Normal <0.11 [facility] Comment on above: Order Comment: Speci men Type: BLOOD SPECIMEN Ordering Facility: [facility] Address: [address] [place] [address] Performed By: #### 5 7021-8 #### [facility] CLIA [id number] [address] [place] [address] [place] Basophils/100 WBC (Bld) 0.7 % Normal C [facility] Comment on above: Order Comment: Speci men Type: BLOOD SPECIMEN Ordering Facility: [facility] Address: [address] [place] [address] Performed By: #### 5 7021-8 #### [facility] CLIA [id number] [address] [place] [address] [place] Differential cell count method Nom (Bld) Auto Normal [facility] Comment on above: Order Comment: Speci men Type: BLOOD SPECIMEN Ordering Facility: [facility] Address: [address] [place] [address] Performed By: #### 5 7021-8 #### [facility] CLIA [id number] [address] [place] [address] [place] Eosinophils (Bld) [#/Vol] 0.06 10*3/uL Normal <0.46 [facility] Comment on above: Order Comment: Speci men Type: BLOOD SPECIMEN Ordering Facility: [facility] Address: [address] [place] [address] Performed By: #### 5 7021-8 #### [facility] CLIA [id number] [address] [place] [address] [place] Eosinophils/100 WBC (Bld) 1.3 % Normal [facility] Comment on above: Order Comment: Speci men Type: BLOOD SPECIMEN Ordering Facility: [facility] Address: [address] [place] [address] Performed By: #### 5 7021-8 #### [facility] CLIA [id number] [address] [place] [address] [place] Erythrocyte distribution width (RBC) [Ratio] 13.9 % Normal 11.5-15.0 [facility] Comment on above: Order Comment: Speci men Type: BLOOD SPECIMEN Ordering Facility: [facility] Address: [address] [place] [address] Performed By: #### 5 7021-8 #### [facility] CLIA [id number] [address] [place] [address] [place] Hematocrit (Bld) [Volume fraction] 41.1 % Normal 36.0-46.0 [facility] Comment on above: Order Comment: Speci men Type: BLOOD SPECIMEN Ordering Facility: [facility] Address: [address] [place] [address] Performed By: #### 5 7021-8 #### [facility] CLIA [id number] [address] [place] [address] [place] Hemoglobin (Bld) [Mass/Vol] 13.8 g/dL Normal 11.5-15.5 [facility] Comment on above: Order Comment: Speci men Type: BLOOD SPECIMEN Ordering Facility: [facility] Address: [address] [place] [address] Performed By: #### 5 7021-8 #### [facility] CLIA [id number] [address] [place] [address] [place] Immature granulocytes (Bld) [#/Vol] 10*3/uL Normal <0.10 [facility] Comment on above: Order Comment: Speci men Type: BLOOD SPECIMEN Ordering Facility: [facility] Address: [address] [place] [address] Performed By: #### 5 7021-8 #### [facility] CLIA [id number] [address] [place] [address] [place] Immature granulocytes/100 WBC (Bld) 0.2 % Normal [facility] Comment on above: Order Comment: Speci men Type: BLOOD SPECIMEN Ordering Facility: [facility] Address: [address] [place] [address] Performed By: #### 5 7021-8 #### [facility] CLIA [id number] [address] [place] [address] [place] Lymphocytes (Bld) [#/Vol] 1.91 10*3/uL Normal 1.00-4.00 [facility] Comment on above: Order Comment: Speci men Type: BLOOD SPECIMEN Ordering Facility: [facility] Address: [address] [place] [address] Performed By: #### 5 7021-8 #### [facility] CLIA [id number] [address] [place] [address] [place] Lymphocytes/100 WBC (Bld) 42.9 % Normal [facility] Comment on above: Order Comment: Speci men Type: BLOOD SPECIMEN Ordering Facility: [facility] Address: [address] [place] [address] Performed By: #### 5 7021-8 #### [facility] CLIA [id number] [address] [place] [address] [place] MCH (RBC) [Entitic mass] 32.9 pg Normal 26.0-34.0 [facility] Comment on above: Order Comment: Speci men Type: BLOOD SPECIMEN Ordering Facility: [facility] Address: [address] [place] [address] Performed By: #### 5 7021-8 #### [facility] CLIA [id number] [address] [place] [address] [place] MCHC (RBC) [Mass/Vol] 33.6 g/dL Normal 30.5-36.0 [facility] Comment on above: Order Comment: Speci men Type: BLOOD SPECIMEN Ordering Facility: [facility] Address: [address] [place] [address] Performed By: #### 5 7021-8 #### [facility] CLIA [id number] [address] [place] [address] [place] MCV (RBC) [Entitic vol] 97.9 fL Normal 80.0-100.0 [facility] Comment on above: Order Comment: Speci men Type: BLOOD SPECIMEN Ordering Facility: [facility] Address: [address] [place] [address] Performed By: #### 5 7021-8 #### [facility] CLIA [id number] [address] [place] [address] [place] Monocytes (Bld) [#/Vol] 0.50 10*3/uL Normal <0.87 [facility] Comment on above: Order Comment: Speci men Type: BLOOD SPECIMEN Ordering Facility: [facility] Address: [address] [place] [address] Performed By: #### 5 7021-8 #### [facility] CLIA [id number] [address] [place] [address] [place] Monocytes/100 WBC (Bld) 11.2 % Normal [facility] Comment on above: Order Comment: Speci men Type: BLOOD SPECIMEN Ordering Facility: [facility] Address: [address] [place] [address] Performed By: #### 5 7021-8 #### [facility] CLIA [id number] [address] [place] [address] [place] Neutrophils (Bld) [#/Vol] 1.94 10*3/uL Normal 1.45-7.50 [facility] Comment on above: Order Comment: Speci men Type: BLOOD SPECIMEN Ordering Facility: [facility] Address: [address] [place] [address] Performed By: #### 5 7021-8 #### [facility] CLIA [id number] [address] [place] [address] [place] Neutrophils/100 WBC (Bld) 43.7 % Normal [facility] Comment on above: Order Comment: Speci men Type: BLOOD SPECIMEN Ordering Facility: [facility] Address: [address] [place] [address] Performed By: #### 5 7021-8 #### [facility] CLIA [id number] [address] [place] [address] [place] Nucleated RBC (Bld) [#/Vol] 10*3/uL Normal <0.01 [facility] Comment on above: Order Comment: Speci men Type: BLOOD SPECIMEN Ordering Facility: [facility] Address: [address] [place] [address] Performed By: #### 5 7021-8 #### [facility] CLIA [id number] [address] [place] [address] [place] Nucleated RBC/100 WBC (Bld) [Ratio] 0.0 /100 WBC Normal [facility] Comment on above: Order Comment: Speci men Type: BLOOD SPECIMEN Ordering Facility: [facility] Address: [address] [place] [address] Performed By: #### 5 7021-8 #### [facility] CLIA [id number] [address] [place] [address] [place] Platelet mean volume (Bld) [Entitic vol] 12.3 fL Normal 9.0-12.7 [facility] Comment on above: Order Comment: Speci men Type: BLOOD SPECIMEN Ordering Facility: [facility] Address: [address] [place] [address] Performed By: #### 5 7021-8 #### [facility] CLIA [id number] [address] [place] [address] [place] Platelets (Bld) [#/Vol] 213 10*3/uL Normal 150-400 [facility] Comment on above: Order Comment: Speci men Type: BLOOD SPECIMEN Ordering Facility: [facility] Address: [address] [place] [address] Performed By: #### 5 7021-8 #### [facility] CLIA [id number] [address] [place] [address] [place] RBC (Bld) [#/Vol] 4.20 10*6/uL Normal 3.90-5.20 [facility] Comment on above: Order Comment: Speci men Type: BLOOD SPECIMEN Ordering Facility: [facility] Address: [address] [place] [address] Performed By: #### 5 7021-8 #### [facility] CLIA [id number] [address] [place] [address] [place] WBC (Bld) [#/Vol] 4.45 10*3/uL Normal 3.70-11.00 [facility] Comment on above: Order Comment: Speci men Type: BLOOD SPECIMEN Ordering Facility: [facility] Address: [address] [place] [address] Performed By: #### 5 7021-8 #### [facility] CLIA [id number] [address] [place], [place] [address] [place] Comprehensive metabolic 2000 panelon 01-07-2024 Albumin [Mass/Vol] 4.2 g/dL Normal 3.9-4.9 [facility] Comment on above: Order Comment: Speci men Type: BLOOD SPECIMEN Ordering Facility: [facility] Address: [address] [place] [address] Performed By: #### L [id number], 59039-8, 75127-4 #### [facility] CLIA [id number] [address] [place] [address] [place] ALP [Catalytic activity/Vol] 57 U/L Normal 34-123 [facility] Comment on above: Order Comment: Speci men Type: BLOOD SPECIMEN Ordering Facility: [facility] Address: [address] [place] [address] Performed By: #### L [id number], 82981-4, 22715-9 #### [facility] CLIA [id number] [address] [place] [address] [place] ALT [Catalytic activity/Vol] 9 U/L Normal 7-38 [facility] Comment on above: Order Comment: Speci men Type: BLOOD SPECIMEN Ordering Facility[facility] Address: [address] [place] [address] Performed By: #### L [id number], 71771-9, 69955-1 #### [facility] CLIA [id number] [address] [place] [address] [place] Anion gap [Moles/Vol] 14 mmol/L Normal 8-15 [facility] Comment on above: Order Comment: Speci men Type: BLOOD SPECIMEN Ordering Facility[facility] Address: [address] [place] [address] Performed By: #### L [id number], 70781-6, 82878-3 #### [facility] CLIA [id number] [address] [place] [address] [place] AST [Catalytic activity/Vol] 23 U/L Normal 13-35 [facility] Comment on above: Order Comment: Speci men Type: BLOOD SPECIMEN Ordering Facility: [facility] Address: [address] [place] [address] Result Comment: Resu lts may be falsely increased due to interference from hemolysis. Suggest reorder as clinically indicated. Performed By: #### L [id number], 43649-3, 36666-9 #### [facility] CLIA [id number] [address] [place] [address] [place] Bilirubin [Mass/Vol] 0.5 mg/dL Normal 0.2-1.3 [facility] Comment on above: Order Comment: Speci men Type: BLOOD SPECIMEN Ordering Facility[facility] Address: [address] [place] [address] Performed By: #### L [id number], , #### [facility] CLIA [id number] [address] [place] [address] [place] Calcium [Mass/Vol] 9.5 mg/dL Normal 8.5-10.2 [facility] Comment on above: Order Comment: Speci men Type: BLOOD SPECIMEN Ordering Facility: [facility] Address: [address] [place] [address] Performed By: #### L [id number], , #### [facility] CLIA [id number] [address] [place] [address] [place] Chloride [Moles/Vol] 102 mmol/L Normal 98-107 [facility] Comment on above: Order Comment: Speci men Type: BLOOD SPECIMEN Ordering Facility[facility] Address: [address] [place] [address] Performed By: #### L [id number], , #### [facility] CLIA [id number] [address] [place] [address] [place] CO2 [Moles/Vol] 22 mmol/L Normal 22-30 [facility] Comment on above: Order Comment: Speci men Type: BLOOD SPECIMEN Order[facility] Address: [address] [place] [address] Performed By: #### L [id number], , #### [facility] CLIA [id number] [address] [place], [place] [address] [place] Creatinine [Mass/Vol] 0.85 mg/dL Normal 0.58-0.96 [facility] Comment on above: Order Comment: Sixto toribio Type: BLOOD SPECIMEN Ordering Facility[facility] Address: [address] [place] [address] Performed By: #### L [id number], 54229-0, #### [facility] CLIA [id number] [address] [place] [address] [place] Creatinine and Glomerular filtration rate.predicted panel (S/P/Bld) 66 mL/min/1.73m??? Normal >=60 [facility] Comment on above: Order Comment: Sixto toribio Type: BLOOD SPECIMEN Ordering Facility[facility] Address: [address] [place] [address] Result Comment: Jody mated Glomerular Filtration Rate [...] reflect actual GFR. Performed By: #### L [id number], , #### [facility] CLIA [id number] [address] [place] [address] [place] Glucose [Mass/Vol] 83 mg/dL Normal 74-99 [facility] Comment on above: Order Comment: Sixto toribio Type: BLOOD SPECIMEN Ordering Facility[facility] Address: [address] [place] [address] Result Comment: The [place] Diabetes Association (ADA) provides guidance for cutoff [...] Standards of Medical Care in Diabetes 2016, [place] Diabetes Association. Diabetes Care. 2016.39(Suppl 1). Performed By: #### L [id number], , #### [facility] CLIA [id number] [address] [place] [address] [place] Potassium [Moles/Vol] 4.0 mmol/L Normal 3.7-5.1 [facility] Comment on above: Order Comment: Speci men Type: BLOOD SPECIMEN Order[facility] Address: [address] [place] [address] Performed By: #### L [id number], , #### [facility] CLIA [id number] [address] [place] [address] [place] Protein [Mass/Vol] 7.6 g/dL Normal 6.3-8.0 [facility] Comment on above: Order Comment: Speci men Type: BLOOD SPECIMEN Order[facility] Address: [address] [place] [address] Performed By: #### L [id number], , #### [facility] CLIA [id number] [address] [place] [address] [place] Sodium [Moles/Vol] 138 mmol/L Normal 136-144 [facility] Comment on above: Order Comment: Speci men Type: BLOOD SPECIMEN Order[facility] Address: [address] [place] [address] Performed By: #### L [id number], , #### [facility] CLIA [id number] [address] [place], [place] [address] [place] Urea nitrogen [Mass/Vol] 15 mg/dL Normal 7-21 [facility] Comment on above: Order Comment: Speci men Type: BLOOD SPECIMEN Order[facility] Address: [address] [place] [address] Performed By: #### L [id number], 83485-4, 41704-4 #### [facility] CLIA [id number] [address] [place] [address] [facility] HYO19lc 01-07-2024 ECG01 Ventricular Rate : 69 BPM Atrial Rate : 69 BPM P-R Interval : 182 ms QRS Duration : 78 ms Q-T Interval : 422 ms QTC Calculation(Bazett) : 452 ms Calculated P [place] : 55 degrees Calculated R [place] : 40 degrees Calculated T [place] : 56 degrees NORMAL SINUS RHYTHM NONSPECIFIC ST ABNORMALITY ABNORMAL ECG 0341 Confirmed by ELLEN ALMODOVAR MD (), newspaper editor ANGEL CASTELLANOS ([id number]) on 01/09/2024 11:11:28 AM NAME : GINA WORTHINGTON PID : [id number] : 1935 Gender : Female Race : ORD : Procedure Date : Jan 07 2024 03:38:09 Edit Date : Jan 09 2024 11:11:37 Diagnosis: NORMAL SINUS RHYTHM NONSPECIFIC ST ABNORMALITY ABNORMAL ECG 0341 Confirmed by ELLEN ALMODOVAR MD (), newspaper editor ANGEL CASTELLANOS ([id number]) on 01/09/2024 11:11:28 AM Test Reason : Location : 2 : EDNS 029 Overread By : ELLEN ALMODOVAR MD Edited By : ANGEL CASTELLANOS Referred By : , Acquired by : Alejandra CHO [facility] ED NOTEon 01-07-2024 ED NOTE HNO ID: [id number] Author: TAZ MORRIS, MICHAEL Service: Emergency Medicine Author Type: Registered Nurse Type: ED Notes Filed: 01/10/2024 11:07 Note Text: Emergency Services: ED Call Back Questionnaire SERVICE DATE: 01/07/2024 Are you feeling better? 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 No Were you able to make a follow up appointment? No, referred to appointment hotline Do you have any further questions? No Is there anything that we could have done differently to improve your ED visit? No SIGNATURE: Taz Morris RN PATIENT NAME: Gina Worthington DATE: January 10, 2024 TIME: 11:06 AM Normal [facility] ED PROV NOTEon 01-07-2024 ED PROV NOTE HNO ID: [id number] Author: ELLEN ALMODOVAR MD Service: Emergency Medicine [...] ECG COMPLETE (more content not included)... Normal [facility] HIGH SENSITIVITY TROPONIN T (INITIAL)on 01-07-2024 Troponin T.cardiac High sensitivity method [Mass/Vol] 13 ng/L High <12 [facility] Comment on above: Order Comment: Sixto toribio Type: BLOOD SPECIMEN [facility] Address: [address] [place] [address] Performed By: #### L [id number], 27708-3, 94850-0 #### [facility] CLIA [id number] [address] [place] [address] [place] Magnesium SerPl-ncon 01-06 Magnesium [Mass/Vol] 2.0 mg/dL Normal 1.7-2.3 [facility] Comment on above: Order Comment: Sixto toribio Type: BLOOD SPECIMEN Order[facility] Address: [address] [place] [address] Performed By: #### L [id number], 50763-7, 14416-9 #### [facility] CLIA [id number] [address] [facility] [place] [id number] [place] XR CHEST 2V [...] tissues: Unremarkable. IMPRESSION: No acute radiographic abnormality. Dye Automation Operator: PSCBeverley Transcribe Date/Time: Jan 07 2024 5:32A Dictated by : DIPAK CASAS MD This examination was interpreted and the report reviewed and electronically signed by: DIPAK CASAS MD on Jan 07 2024 5:33AM EST [id number] CN Normal [facility] CNPNon 12-26-2023 CNPN Telephone ([facility]) GINA WORTHINGTON ([id number]) 1935 F T Date Time Provider Department 12/26/23 [facility] During your visit today, we recorded the following information about you: Melissa Friend 12/26/2023 5:09 PM Signed Received referral to Dr. Geogre for TAVR, uploaded under scanned documents Echo [...] Reason for Visit: Received Outside Medical Records [4749] Primary Visit Diagnosis:Nonrheumat ic aortic (valve) stenosis [I35.0] Order(s):CONSULT TO TAVR/TMVR [[id number]] Order #: [id number]: 1 Prescriptions as of 01/04/2024 - warfarin [...] 12/26/2023 Noted Resolved CAD (coronary artery disease), [place] coronary *08/26/2014 S/P coronary artery stent placement [Z95.5] 08/26/2014 Chest pain [R07.9] 08/26/2014 DVT of lower extremity (deep venous thrombosis)*08/27/19 15 Hypertension [I10] 08/26/2014 Hyperlipidemia [E78.5] 08/26/2014 Statin intolerance [Z78.9] 08/26/2014 Encounter Status:Closed by MELISSA FRIEND on 12/26/23 [facility] CNPNon 12-23-2023 CNPN Telephone ([facility]) GINA WORTHINGTON ([id number]) 1935 F Date Time Provider Department 12/23/23 [facility] your visit today, we recorded the following information about you: José Luis Jett 12/23/2023 8:36 AM Signed RECEIVED CALL FROM: Family member - Name: Maria Victoria PATIENT INFORMATION: Name: Gina Worthington : 1935 (home) Email: [email or web address] Referring Provider: No referring provider defined for this encounter. Phone: N/A Fax: Requested Surgeon: First Available/Unspecifie d Reason for appointment/diagnosi s : Aortic stenosis José Luis Jett December 23, 2023 8:34 AM Allergies As of Date: 12/23/2023 (Not on File) Date Reviewed: Never Reviewed Problem List As Of Date: 12/23/2023 (None) Encounter Status:Closed by JOSÉ LUIS JETT on 12/23/23 [facility] Nasopharyngeal Cultureon NAC No growth in 48 hours. Normal [facility] Comment on above: Performed By: #### L 499.0043 #### [facility] [address] [place], [place], [address] Gram Stainon 12-22-2023 Gram Stain 1+ White Blood Cells No organisms seen Normal [facility] Comment on above: Performed By: #### L 499.0043 #### [facility] [address] [place], [address] Cardiology Visit Reporton Cardiology Visit Report [facility] [address] [place], [place] [address] OFFICE VISIT Date of Service: 12/21/23 MR#: [id number] Acct: [id number] Name: GINA WORTHINGTON Rep #: [id number] : 1935 Provider: GENA bennett Age/Sex: 88/F [facility] [facility] Status: Signed with Addenda ADDENDUM by [...] Dr. Amadou Liu MD * Signed HPI [facility] History of Present Illness Details: GINA WORTHINGTON, [...] Visit Reasons: 3 WK FU per KR Legislative Correspondent Required: No Is patient in pain?: No [...] 12/21/23 @ 09:41 by Erik Lucas NP, DREDGING INSPECTOR-C) Deep vein thrombosis Obesity Essential (primary) hypertension Nonrheumatic aortic (valve) stenosis Hyperlipidemia Atherosclerotic heart disease of [place] coronary artery without angina pectoris Surgical History [...] Cardio Ches (more content not included)... Normal [facility] Echo Completeon 12-21-2023 Echo Complete [facility] [address] [place] [address] Echo Complete 12/21/23 0800 MR#: [id number] Acct: [id number] Name: GINA WORTHINGTON Rep #: [id number] : 1935 88 From: Octavio Lopez MD [...] Octavio Lopez MD Performed By: Elvira Pro, [facility] 12/21/23 1414 Date Octavio Lopez MD CC: Dr. Amadou Liu MD; Dr. Octavio Lopez MD Date Dictated: 12/21/23 0800 Date Transcribed: 12/21/23 1414 Dye Automation Operator: Signed Normal [facility] HEMOGLOBIN A1con 03-04-2023 HEMOGLOBIN A1c 5.8 [...] diabetes for children. Performed By: #### 8 64, 38344, 496 #### [facility] [address] [place] [address], [address] [place] [address] Crate Builder: Jay Ferro MD TSHon 03-04-2023 TSH Qn 2.48 m[IU]/L Normal 0.40-4.50 [facility] Comment on above: Order Comment: FASTI NG: NO Performed By: #### 8 99, 87600, 496 #### [facility] [address], [address] [place] [address] Crate Builder: Jay Ferro MD VITAMIN D,25-OH,TOTAL,IAon 1 VITAMIN [...] D, (D2,D3), LC/MS/MS is recommended: order code 54000 (patients >2yrs). See Note 1 Note 1 For additional information, please refer to http://education.Speakermix/faq/FLP452 (This link is being provided for informational/ educational purposes only.) Performed By: #### 8 99, 18400, 496 #### [facility] [address], [address] [place] [address] Crate Builder: Jay Ferro MD Absolute lymphocyte countOrd ered By: Mario Anthony on 01-23-2023 Lymphocytes Auto (Unsp spec) [#/Vol] 1.39 10*3/uL 0.83-4.51 [facility] Basophil percentageOrdered B y: Mario Cruz on 01-23-2023 Basophils/100 WBC (Bld) 0.6 % 0-[address] [facility] Chloride [Moles/Vol] 106 mmol/L 98-107 [facility] Eosinophils/100 WBC (Bld) 0.8 % 0-5 [facility] Glucose [Mass/Vol] 98 mg/dL 74-106 [facility] Neutrophils (Bld) [#/Vol] 3.4 10*3/uL 2.0-7.7 [facility] Neutrophils/100 WBC (Bld) 63.9 % 47-70 [facility] Potassium [Moles/Vol] 4.2 mmol/L 3.5-5.1 [facility] Sodium [Moles/Vol] 138 mmol/L 136-145 [facility] WBC (Bld) [#/Vol] 5.3 10*3/uL 4.4-11.0 [facility] Blood erythrocytes count (nu mber/volume)Ordered By: Mario Cruz on 01-23-2023 RBC (Bld) [#/Vol] 4.02 10*6/uL 4.2-5.4 [facility] Blood hemoglobin measurement (mass/volume)Ordered By: Mario Cruz on 01-23-2023 Hemoglobin (Bld) [Mass/Vol] 12.5 g/dL 12.0-15.0 [facility] Blood lymphocytes/100 leukoc ytesOrdered By: Mario Cruz on 01-23-2023 Lymphocytes/100 WBC (Bld) 26.2 % 19-41 [facility] Blood monocytes/100 leukocyt esOrdered By: Mario Cruz on 01-23-2023 Monocytes/100 WBC (Bld) 8.1 % 0-[address] [facility] Blood platelet mean volumeOr dered By: Mario Cruz on 01-23-2023 Platelet mean volume (Bld) [Entitic vol] 10.7 fL 6.2-12.0 [facility] Determination of erythrocyte mean corpuscular volume (MCV)Ordered By: Mario Cruz on 01-23-2023 MCV (RBC) [Entitic vol] 97.0 fL 81-[address] [facility] Hematocrit Auto (Bld) [Volum e fraction]Ordered By: Mario Cruz on 01-23-2023 Hematocrit (Bld) [Volume fraction] 39.0 % 37-47 [facility] - Chemistry and C hemistry - challengeOrdered By: Mario Cruz on 01-23-2023 CO2 [Moles/Vol] 29.0 mmol/L 21.0-32.0 [facility] Urea nitrogen/Creatinine [Mass ratio] 27.4 mg/mg 10-20 [facility] - Hematology and Cell countsOrdered By: Mario Cruz on 01-23-2023 Erythrocyte distribution width (RBC) [Entitic vol] 49.8 fL 35.1-43.9 [facility] Erythrocyte distribution width (RBC) [Ratio] 14.0 % 11.6-14.6 [facility] Immature granulocytes/100 WBC (Bld) 0.400 % 0.0-0.9 [facility] Comment on above: IG% - Immature Granu locytes (promyelocytes, myelocytes and metamyelocytes) > 1% indicates that a LEFT SHIFT is Present. MCH (RBC) [Entitic mass] 31.1 pg 27.0-32.0 [facility] Nucleated RBC/100 WBC (Bld) [Ratio] 0 % 0-5 [facility] MCHC Auto (RBC) [Mass/Vol]Or dered By: Mario Cruz on 01-23-2023 MCHC (RBC) [Mass/Vol] 32.1 g/dL 32-36 [facility] No Panel InformationOrdered By: Mario Cruz on 01-23-2023 Estimated Creatinine Clearance Calc 34.45 ml/min [facility] Estimated GFR (MDRD) Amer 75 mL/min >60 [facility] Comment on above: GFR Calc Estimated GFR (MDRD) Non-Af Amer 62 mL/min >60 [facility] Comment on above: Non- GFR Calc Troponin I High Sensitivity 11 pg/mL 3.0-54.0 [facility] Comment on above: Please Note: New Frannie t Units and Gender Specific Reference Ranges. For more information see Policy Stat Procedure [place] High Sensitivity Troponin (TNIH) and attachments. Platelets bldOrdered By: Jourdan Cruz on 01-23-2023 Platelets (Bld) [#/Vol] 225 10*3/uL 150-450 [facility] Serum or plasma calcium bony urement (mass/volume)Ordered By: Mario Cruz on 01-23-2023 Calcium [Mass/Vol] 9.1 mg/dL 8.5-10.1 [facility] Serum or plasma creatinine m easurement (mass/volume)Ordered By: Mario Cruz on 01-23-2023 Creatinine [Mass/Vol] 0.91 mg/dL 0.55-1.02 [facility] Comment on above: The validity of the calculated GFR & GFRAA in patients over 70 years has not been determined. Clinical correlation is essential. Serum or plasma urea nitroge n measurement (mass/volume)Ordered By: Mario Cruz on 01-23-2023 Urea nitrogen [Mass/Vol] 25 mg/dL - [facility] Thin prep Papanicolaou smear with manual screeningOrdered By: Mario Cruz on 01-23-2023 Thin prep Papanicolaou smear with manual screening 3 -15 [facility] HEMOGLOBIN A1con 07-16-2022 HEMOGLOBIN A1c 5.5 [...] diagnosis of diabetes in children. According to [place] Diabetes Association (ADA) guidelines, hemoglobin A1c <7.0% represents optimal control in non- diabetic patients. Different metrics may apply to specific patient populations. Standards of Medical Care in Diabetes(ADA). Performed By: #### 8 99, 775 #### [facility] [address], [address] [place], [place] [id number] Crate Builder: Jay Ferro MD TSHon 07-16-2022 TSH Qn 2.06 m[IU]/L Normal 0.40-4.50 [facility] Comment on above: Order Comment: FASTI NG: NO Performed By: #### 8 99, 276 #### [facility] [address], [address] [place] [id number] Crate Builder: Jay Ferro MD Absolute lymphocyte counton 06-15-2021 Lymphocytes Auto (Unsp spec) [#/Vol] 1.54 10*3/uL 0.83-4.51 [facility] Work Phone: Basophil percentageon 2021 Basophils/100 WBC (Bld) 0.4 % 0-[address] [facility] Work Phone: Bilirubin [Mass/Vol] 0.40 mg/dL 0.20-1.00 [facility] Work Phone: Comment on above: For patients on eltr ombopag therapy, use of Dimension [place] TBIL is not recommended. Chloride [Moles/Vol] 99 mmol/L 98-107 [facility] Work Phone: [phone] Eosinophils/100 WBC (Bld) 2.0 % 0-5 [facility] Work Phone: Glucose [Mass/Vol] 89 mg/dL 74-106 [facility] Work Phone: Neutrophils (Bld) [#/Vol] 2.9 10*3/uL 2.0-7.7 [facility] Work Phone: Neutrophils/100 WBC (Bld) 56.3 % 47-70 [facility] Work Phone: Potassium [Moles/Vol] 4.0 mmol/L 3.5-5.1 [facility] Work Phone: Protein [Mass/Vol] 7.6 g/dL 6.4-8.2 [facility] Work Phone: Sodium [Moles/Vol] 134 mmol/L 136-145 [facility] Work Phone: WBC (Bld) [#/Vol] 5.1 10*3/uL 4.4-11.0 [facility] Work Phone: Blood erythrocytes count (nu mber/volume)on 06-15-2021 RBC (Bld) [#/Vol] 3.83 10*6/uL 4.2-5.4 [facility] Work Phone: Blood hemoglobin measurement (mass/volume)on 06-15-2021 Hemoglobin (Bld) [Mass/Vol] 12.1 g/dL 12.0-15.0 [facility] Work Phone: Blood lymphocytes/100 leukoc yteson 06-15-2021 Lymphocytes/100 WBC (Bld) 30.3 % 19-41 [facility] Work Phone: Blood monocytes/100 leukocyt eson 06-15-2021 Monocytes/100 WBC (Bld) 10.8 % 0-[address] [facility] Work Phone: Blood platelet mean volumeon 06-15-2021 Platelet mean volume (Bld) [Entitic vol] 11.2 fL 6.2-12.0 [facility] Work Phone: Determination of erythrocyte mean corpuscular volume (MCV)on 06-15-2021 MCV (RBC) [Entitic vol] 97.1 fL 81-[address] [facility] Work Phone: Erythrocyte sedimentation ra karen 06-15-2021 ESR (Bld) [Velocity] 38 mm/h 0-30 [facility] Work Phone: Hematocrit Auto (Bld) [Volum e fraction]on 06-15-2021 Hematocrit (Bld) [Volume fraction] 37.2 % 37-47 [facility] Work Phone: Laboratory - Chemistry and C hemistry - challengeon 06-15-2021 ALP [Catalytic activity/Vol] 61 U/L 45-117 [facility] Work Phone: ALT [Catalytic activity/Vol] 15 U/L 13-56 [facility] Work Phone: CO2 [Moles/Vol] 29.0 mmol/L 21.0-32.0 [facility] Work Phone: Globulin (S) [Mass/Vol] 4.3 g/dL 2.2-4.[address] [facility] Work Phone: Urea nitrogen/Creatinine [Mass ratio] 29.5 mg/mg 10-20 [facility] Work Phone: Laboratory - Hematology and Cell countson 06-15-2021 Erythrocyte distribution width (RBC) [Entitic vol] 46.1 fL 35.1-43.9 [facility] Work Phone: Erythrocyte distribution width (RBC) [Ratio] 13.0 % 11.6-14.6 [facility] Work Phone: Immature granulocytes/100 WBC (Bld) 0.200 % 0.0-0.9 [facility] Work Phone: Comment on above: IG% - Immature Granu locytes (promyelocytes, myelocytes and metamyelocytes) > 1% indicates that a LEFT SHIFT is Present. MCH (RBC) [Entitic mass] 31.6 pg 27.0-32.0 [facility] Work Phone: Nucleated RBC/100 WBC (Bld) [Ratio] 0 % 0-5 [facility] Work Phone: MCHC Auto (RBC) [Mass/Vol]on 06-15-2021 MCHC (RBC) [Mass/Vol] 32.5 g/dL 32-36 [facility] Work Phone: No Panel Informationon 06-15 Anti-Nuclear Antibody Screen Negative Negative [facility] Work Phone: Comment on above: Performed at: [address] [id number] Director: Nirmal Isidro PhD, Phone: [phone] Estimated GFR (MDRD) Amer 100 mL/min >60 [facility] Work Phone: Comment on above: GFR Calc Estimated GFR (MDRD) Non-Af Amer 83 mL/min >60 [facility] Work Phone: Comment on above: Non- GFR Calc Hepatitis B Surface Antigen Non-Reactive Nonreactive [facility] Work Phone: Hepatitis C Antibody Non-Reactive Nonreactive [facility] Work Phone: Comment on above: Non Reactive: < 0.8 Equivocal: >/= 0.8 to < 1.0 Reactive: >/= 1.0The CDC recommends that a reactive/equivocal HCV antibody result be followed up by the HCV Nucleic Acid Amplificationtest (753306) Platelets bldon 06-15-2021 Platelets (Bld) [#/Vol] 320 10*3/uL 150-450 [facility] Work Phone: Serum cyclic citrullinated p eptide IgG antibody assay (units/volume)on 06-15-2021 Cyclic citrullinated peptide IgG Qn 2 units [facility] Work Phone: Comment on above: Negative <20 Weak po sitive 20 - 39 Moderate positive 40 - 59 Strong positive >59Performed at: [facility] [id number] Director: Shara Gilman MD, Phone: [phone] Serum hepatitis B virus surf kathleen antibody IgG detectionon 06-15-2021 HBV surface IgG Ql (S) Non-Reactive [facility] Work Phone: Comment on above: Non Reactive: Incons istent with immunity less than <10 mIU/mL Reactive: Consistent with immunity greater than or equal to 10 mIU/mL Serum or plasma C reactive p rotein measurement (mass/volume)on 06-15-2021 CRP [Mass/Vol] 27.40 mg/L 0.0-3.0 [facility] Work Phone: Comment on above: C-Reactive Protein ( CRP) provides useful information for thediagnosis, therapy and monitoring of inflammatory processesand associated diseases. For the evaluation of Relative Riskfor Cardiovascular Disease, a High Sensitivity CRP (HSCRP)should be ordered. Serum or plasma albumin bony urement (mass/volume)on 06-15-2021 Albumin [Mass/Vol] 3.3 g/dL 3.2-5.0 [facility] Work Phone: Serum or plasma albumin/glob ulin mass ratioon 06-15-2021 Albumin/Globulin [Mass ratio] 0.8 {ratio} 0.9-2.4 [facility] Work Phone: Serum or plasma calcium bony urement (mass/volume)on 06-15-2021 Calcium [Mass/Vol] 9.2 mg/dL 8.5-10.1 [facility] Work Phone: Serum or plasma creatinine m easurement (mass/volume)on 06-15-2021 Creatinine [Mass/Vol] 0.71 mg/dL 0.55-1.02 [facility] Work Phone: Comment on above: The validity of the calculated GFR & GFRAA in patients over 70 years has not been determined. Clinical correlation is essential. Serum or plasma urea nitroge n measurement (mass/volume)on 06-15-2021 Urea nitrogen [Mass/Vol] 21 mg/dL 7-18 [facility] Work Phone: Serum rheumatoid factor dete ctionon 06-15-2021 Rheumatoid factor Ql (S) < 10.0 IU/mL <15 [facility] Work Phone: Thin prep Papanicolaou smear with manual screeningon 06-15-2021 Thin prep Papanicolaou smear with manual screening 18 U/L 15-37 [facility] Work Phone: Thin prep Papanicolaou smear with manual screening 6 5-15 [facility] Work Phone: Office Visiton 11-25-2016 Documentation of current medications (procedure) Done Invalid Interpretation Code [facility] Work Phone: Fall risk assessment No Invalid Interpretation Code [facility] Work Phone: Protein mass conc Done Invalid Interpretation Code [facility] Work Phone: Office Visit: [facility] 06-03-19 Documentation of current medications (procedure) Done Invalid Interpretation Code [facility] Work Phone: Fall risk assessment No Invalid Interpretation Code [facility] Work Phone: Office Visiton 12-03-2015 Dietary management education, guidance, and counseling (procedure) yes Invalid Interpretation Code [facility] Work Phone: Tobacco smoking status NHIS Never smoker Invalid Interpretation Code [facility] Work Phone: [phone] Tobacco use CPHS Never smoker Invalid Interpretation Code [facility] Work Phone: [phone] Replaced Document: Hilda HUNTER Observationson 06-04-2015 EKG QRS axis 31 deg Invalid Interpretation Code [facility] Work Phone: [phone] electrocardiogram interpretation Sinus Rhythm WITHIN NORMAL LIMITS Invalid Interpretation Code [facility] Work Phone: [phone] GE use only - for [employer] import when terms are not otherwise specified 410 ms Invalid Interpretation Code [facility] Work Phone: [phone] Interpretation Sinus Rhythm WITHIN NORMAL LIMITS Invalid Interpretation Code [facility] Work Phone: [phone] P [place] 43 deg Invalid Interpretation Code [facility] Work Phone: [phone] P wave axis, electrocardiogram 43 deg Invalid Interpretation Code [facility] Work Phone: [phone] OR Interval 176 ms Invalid Interpretation Code [facility] Work Phone: [phone] OR interval, electrocardiogram 176 ms Invalid Interpretation Code [facility] Work Phone: [phone] Pulse (Heart Rate) 66 /min Invalid Interpretation Code [facility] Work Phone: [phone] QRS axis, electrocardiogram 31 deg Invalid Interpretation Code [facility] Work Phone: [phone] QRS Duration 84 ms Invalid Interpretation Code [facility] Work Phone: [phone] QRS duration, electrocardiogram 84 ms Invalid Interpretation Code [facility] Work Phone: [phone] QT Interval new path ms Invalid Interpretation Code [facility] Work Phone: [phone] QT interval, electrocardiogram new path ms Invalid Interpretation Code [facility] Work Phone: [phone] QTc [place] 410 ms Invalid Interpretation Code [facility] Work Phone: [phone] T [place] 55 deg Invalid Interpretation Code [facility] Work Phone: [phone] T wave axis, electrocardiogram 55 deg Invalid Interpretation Code [facility] Work Phone: [phone] Clinical Lists Updateon 05-06 Left ventricular Ejection fraction 65 % Invalid Interpretation Code [facility] Work Phone: Clinical Lists Update: Michelle hanson 09-16-2014 Alanine aminotransferase (ALT) 32 U/L Invalid Interpretation Code [facility] Work Phone: [phone] Albumin 3.5 g/dL Invalid Interpretation Code [facility] Work Phone: [phone] Albumin/Globulin Ratio 0.9 {ratio} Invalid Interpretation Code [facility] Work Phone: [phone] Alkaline phosphatase (ALP) 63 U/L Invalid Interpretation Code [facility] Work Phone: [phone] ALP enzyme act/vol (Bld) 63 U/L Invalid Interpretation Code [facility] Work Phone: [phone] Anion gap 8 mmol/L Invalid Interpretation Code [facility] Work Phone: [phone] Anion gap 4 molar conc 8 Invalid Interpretation Code [facility] Work Phone: [phone] Aspartate aminotransferase (AST) 27 U/L Invalid Interpretation Code [facility] Work Phone: [phone] basophils as percent of blood leukocytes, manual count 0.3 % Invalid Interpretation Code [facility] Work Phone: [phone] Bilirubin (total) 0.40 mg/dL Invalid Interpretation Code [facility] Work Phone: [phone] BUN/Creatinine Ratio 17.5 mg/mg Invalid Interpretation Code [facility] Work Phone: [phone] Calcium 9.1 mg/dL Invalid Interpretation Code [facility] Work Phone: [phone] Chloride 103 mmol/L Invalid Interpretation Code [facility] Work Phone: [phone] CO2 27.0 mmol/L Invalid Interpretation Code [facility] Work Phone: [phone] CO2 ppres (BldV) 27.0 mmol/L Invalid Interpretation Code [facility] Work Phone: [phone] Creatinine 0.8 mg/dL Invalid Interpretation Code [facility] Work Phone: [phone] eosinophils as percent of blood leukocytes, manual count 2.5 % Invalid Interpretation Code [facility] Work Phone: [phone] Erythrocytes (RBC) 4.02 10*6/uL Low [facility] Work Phone: [phone] Globulin 3.7 g/dL Invalid Interpretation Code [facility] Work Phone: [phone] Glucose 86 mg/dL Invalid Interpretation Code [facility] Work Phone: [phone] Glucose mass conc 86 mg/dL Invalid Interpretation Code [facility] Work Phone: [phone] Hematocrit (HCT) 39.6 % Invalid Interpretation Code [facility] Work Phone: [phone] Hemoglobin (HGB) 13.1 g/dL Invalid Interpretation Code [facility] Work Phone: [phone] Lymphocytes/100 leukocytes 37.6 % Invalid Interpretation Code [facility] Work Phone: [phone] MCH 32.6 pg High [facility] Work Phone: [phone] MCHC 33.1 g/dL Invalid Interpretation Code [facility] Work Phone: [phone] MCV 98.5 fL Invalid Interpretation Code [facility] Work Phone: [phone] Monocytes/100 leukocytes 9.8 % Invalid Interpretation Code [facility] Work Phone: [phone] neutrophils, band form as percent of blood leukocytes, manual count 49.5 % Invalid Interpretation Code [facility] Work Phone: [phone] Platelets 242 10*3/mm3 Invalid Interpretation Code [facility] Work Phone: [phone] PMV by [place] 11.0 fL Invalid Interpretation Code [facility] Work Phone: [phone] Potassium 4.3 mmol/L Invalid Interpretation Code [facility] Work Phone: [phone] Protein 7.2 g/dL Invalid Interpretation Code [facility] Work Phone: [phone] RDW-CA 13.2 % Invalid Interpretation Code [facility] Work Phone: [phone] Sodium 138 mmol/L Invalid Interpretation Code [facility] Work Phone: [phone] Thyroid stimulating hormone (TSH) 2.28 u[iU]/mL Invalid Interpretation Code [facility] Work Phone: [phone] Urea nitrogen 14 mg/dL Invalid Interpretation Code [facility] Work Phone: [phone] WBC (Leukocytes) 4.0 10*3/uL Low [facility] Work Phone: [phone] Office Visit: [facility] 07-11-19 15 Tobacco smoking status NHIS Never Invalid Interpretation Code [facility] Work Phone: [phone] Office Visit: [facility] 06-18-19 15 Cholesterol 244 mg/dL Invalid Interpretation Code [facility] Work Phone: [phone] Coagulation tissue factor induced in platelet poor plasma 2.3 s Invalid Interpretation Code [facility] Work Phone: [phone] HDL Cholesterol 45 mg/dL Invalid Interpretation Code [facility] Work Phone: [phone] LDL Cholesterol 152 mg/dL Invalid Interpretation Code [facility] Work Phone: [phone] Triglyceride 237 mg/dL Invalid Interpretation Code [facility] Work Phone: [phone] Office Visiton 04-11-2014 cardiac risk group C Invalid Interpretation Code [facility] Work Phone: [phone] General cardiovascular disease 10Y risk [#] Gibson.D'Agostino N/A Invalid Interpretation Code [facility] Work Phone: [phone] Lab Report: PTon 07-20-2013 INR Coag RelTime (PPP) 1.7 {INR} Normal [facility] Work Phone: [phone] INR in blood by coagulation 1.7 {INR} Normal [facility] Work Phone: [phone] prothrombin time, actual/normal, ratio 18.8 SECONDS High 11.9-14.4 [facility] Work Phone: [phone] PTP 18.8 SECONDS High 11.9-14.4 [facility] Work Phone: [phone] Lab Report: [facility] - copyon specific gravity, urine 1.015 Normal 1.002-1.030 [facility] Work Phone: [phone] EKG Report: [place] ECG Obse rvationson 03-16-2013 Pulse (Heart Rate) 412 ms Invalid Interpretation Code [facility] Work Phone: [phone] Lab Report: Ordered by Dr. Crow schulte 02-13-2013 very low density lipoproteins 27 mg/dL Invalid Interpretation Code [facility] Work Phone: Influenza virus A and B and SARS-CoV-2 (COVID-19) Ag panel - Upper respiratory specim SARS-CoV-2 (COVID-19) RNA ZACH+probe Ql (Resp) [facility] Work Phone: Vital Signs Date Time Vital Sign Value Performing Clinician Faci lity 11-14-2024 09:22-0400 Body height 157.48 cm Amadou Liu MD Work Phone: [facility] 11-14-2024 09:22-0400 Body mass index (BMI) [Ratio] 27.6 kg/m2 Amadou Liu MD Work Phone: [facility] 11-14-2024 09:22-0400 Body weight 68.49 kg Amadou Liu MD Work Phone: [facility] 11-14-2024 09:22-0400 Diastolic blood pressure 75 mm[Hg] Amadou Liu MD Work Phone: [facility] 11-14-2024 09:22-0400 Heart rate 64 /min Amadou Liu MD Work Phone: [facility] 11-14-2024 09:22-0400 Respiratory rate 16 /min Amadou Liu MD Work Phone: [facility] 11-14-2024 09:22-0400 Systolic blood pressure 183 mm[Hg] Amadou Liu MD Work Phone: [facility] 10-25-2024 00:10-0400 Body temperature 97.8 [degF] Amadou Liu MD Work Phone: [facility] 10-25-2024 00:10-0400 Diastolic blood pressure 65 mm[Hg] Amadou Liu MD Work Phone: [facility] 10-25-2024 00:10-0400 Heart rate 61 /min Amadou Liu MD Work Phone: [facility] 10-25-2024 00:10-0400 Respiratory rate 16 /min Amadou Liu MD Work Phone: [facility] 10-25-2024 00:10-0400 SaO2% (BldA) [Mass fraction] 98 % Amadou Liu MD Work Phone: [facility] 10-25-2024 00:10-0400 Systolic blood pressure 203 mm[Hg] Amadou Liu MD Work Phone: [facility] 10-24-2024 20:27-0400 Body height 157.48 cm Amadou Liu MD Work Phone: [facility] 10-24-2024 20:27-0400 Body mass index (BMI) [Ratio] 28 kg/m2 Amadou Liu MD Work Phone: [facility] 10-24-2024 20:27-0400 Body weight 69.44 kg Amadou Liu MD Work Phone: [facility] 09-14-2024 09:04-0400 Diastolic blood pressure 69 mm[Hg] Amadou Liu MD Work Phone: [facility] 09-14-2024 09:04-0400 Heart rate 60 /min Amadou Liu MD Work Phone: [facility] 09-14-2024 09:04-0400 Systolic blood pressure 146 mm[Hg] Amadou Liu MD Work Phone: [facility] 09-14-2024 08:55-0400 Body height 157.48 cm Amadou Liu MD Work Phone: [facility] 09-14-2024 08:55-0400 Body mass index (BMI) [Ratio] 28.3 kg/m2 Amadou Liu MD Work Phone: [facility] 09-14-2024 08:55-0400 Body weight 70.3 kg Amadou Liu MD Work Phone: [facility] 09-14-2024 08:55-0400 Respiratory rate 18 /min Amadou Liu MD Work Phone: [facility] 08-23-2024 03:05-0400 Body temperature 97.7 [degF] Amadou Liu MD Work Phone: [facility] 08-23-2024 03:05-0400 Diastolic blood pressure 58 mm[Hg] Amadou Liu MD Work Phone: [phone])[phone] [place] [address] 08-23-2024 03:05-0400 Heart rate 65 /min Amadou Liu MD Work Phone: [facility] 08-23-2024 03:05-0400 Respiratory rate 16 /min Amadou Liu MD Work Phone: 1(651)[phone] [address] 08-23-2024 03:05-0400 SaO2% (BldA) [Mass fraction] 98 % Amadou Liu MD Work Phone: [phone])[phone] [place] [address] 08-23-2024 03:05-0400 Systolic blood pressure 139 mm[Hg] Amadou Liu MD Work Phone: 3(490)[phone] [place] [address] 08-23-2024 00:32-0400 Body height 157.48 cm Amadou Liu MD Work Phone: 2(443)[phone] [address] 08-23-2024 00:32-0400 Body mass index (BMI) [Ratio] 28.3 kg/m2 Amadou Liu MD Work Phone: 3(761)[phone] [address] 08-23-2024 00:32-0400 Body weight 70.1 kg Amadou Liu MD Work Phone: [facility] 06-21-2024 08:41-0400 Body height 157.48 cm Amadou Liu MD Work Phone: 4(048)[phone] [place] [address] 06-21-2024 08:41-0400 Body mass index (BMI) [Ratio] 28.1 kg/m2 Amadou Liu MD Work Phone: 7(443)[phone] [address] 06-21-2024 08:41-0400 Body weight 69.85 kg Amadou Liu MD Work Phone: 5(861)[phone] [address] 06-21-2024 08:41-0400 Diastolic blood pressure 89 mm[Hg] Amadou Liu MD Work Phone: [facility] 06-21-2024 08:41-0400 Heart rate 65 /min Amadou Liu MD Work Phone: [facility] 06-21-2024 08:41-0400 Respiratory rate 16 /min Amadou Liu MD Work Phone: [facility] 06-21-2024 08:41-0400 Systolic blood pressure 206 mm[Hg] Amadou Liu MD Work Phone: [facility] 06-05-2024 11:36-0400 Body height 157.48 cm Amadou Liu MD Work Phone: [facility] 06-05-2024 11:36-0400 Body mass index (BMI) [Ratio] 28.5 kg/m2 Amadou Liu MD Work Phone: [facility] 06-05-2024 11:36-0400 Body weight 70.76 kg Amadou Liu MD Work Phone: [facility] 06-05-2024 11:36-0400 Diastolic blood pressure 82 mm[Hg] Amadou Liu MD Work Phone: [facility] 06-05-2024 11:36-0400 Heart rate 66 /min Amadou Liu MD Work Phone: [facility] 06-05-2024 11:36-0400 Respiratory rate 16 /min Amadou Liu MD Work Phone: [facility] 06-05-2024 11:36-0400 Systolic blood pressure 176 mm[Hg] Amadou Liu MD Work Phone: [facility] 02-22-2024 10:30-0500 Body mass index (BMI) [Ratio] 27.6 kg/m2 Amadou Liu MD Work Phone: [facility] 02-22-2024 10:30-0500 Body weight 68.49 kg Amadou Liu MD Work Phone: [facility] 02-22-2024 10:30-0500 Diastolic blood pressure 80 mm[Hg] Amadou Liu MD Work Phone: [facility] 02-22-2024 10:30-0500 Heart rate 66 /min Amadou Liu MD Work Phone: [facility] 02-22-2024 10:30-0500 Respiratory rate 16 /min Amadou Liu MD Work Phone: [facility] 02-22-2024 10:30-0500 SaO2% (BldA) [Mass fraction] 96 % Amadou Liu MD Work Phone: [facility] 02-22-2024 10:30-0500 Systolic blood pressure 124 mm[Hg] Amadou Liu MD Work Phone: [facility] 01-23-2024 05:59-0500 Diastolic Blood Pressure Non-Invasive 73 mm[Hg] MARIANNE PINEDA DO [facility] 01-23-2024 05:59-0500 Heart rate 60 /min MARIANNE PINEDA DO [facility] 01-23-2024 05:59-0500 Respiratory rate 16 /min MARIANNE PINEDA DO [facility] 01-23-2024 05:59-0500 Systolic Blood Pressure Non-Invasive 163 mm[Hg] MARIANNE PINEDA DO [facility] 01-23-2024 04:16-0500 Diastolic Blood Pressure Non-Invasive 79 mm[Hg] MARIANNE PINEDA DO [facility] 01-23-2024 04:16-0500 Heart rate 59 /min MARIANNE PINDEA DO [facility] 01-23-2024 04:16-0500 Respiratory rate 16 /min MARIANNE PINEDA DO [facility] 01-23-2024 04:16-0500 Systolic Blood Pressure Non-Invasive 158 mm[Hg] MARIANNE PINEDA DO [facility] 01-23-2024 03:33-0500 Diastolic Blood Pressure Non-Invasive 98 mm[Hg] MARIANNE PINEDA DO [facility] 01-23-2024 03:33-0500 Heart rate 62 /min MARIANNE PINEDA DO [facility] 01-23-2024 03:33-0500 Respiratory rate 17 /min MARIANNE PINEDA DO [facility] 01-23-2024 03:33-0500 Systolic Blood Pressure Non-Invasive 159 mm[Hg] MARIANNE PINEDA [facility] 01-23-2024 02:32-0500 Body temperature 97.7 [degF] MARIANNE PINEDA [facility] 01-23-2024 02:32-0500 Body weight 69.8 kg MARIANNE PINEDA [facility] 01-23-2024 02:32-0500 Heart rate 74 /min MARIANNE PINEDA [facility] 01-23-2023 10:58-0500 Diastolic blood pressure 82 mm[Hg] No Primary Care Physician [facility] 01-23-2023 10:58-0500 Heart rate 72 /min No Primary Care Physician [facility] 01-23-2023 10:58-0500 Respiratory rate 14 /min No Primary Care Physician [facility] 01-23-2023 10:58-0500 SaO2% (BldA) [Mass fraction] 99 % No Primary Care Physician [facility] 01-23-2023 10:58-0500 Systolic blood pressure 174 mm[Hg] No Primary Care Physician [facility] 01-23-2023 08:46-0500 Body height 157.48 cm No Primary Care Physician [facility] 01-23-2023 08:46-0500 Body mass index (BMI) [Ratio] 30.5 kg/m2 No Primary Care Physician [facility] 01-23-2023 08:46-0500 Body temperature 96.5 [degF] No Primary Care Physician [facility] 01-23-2023 08:46-0500 Body weight 75.7 kg No Primary Care Physician [facility] 12-06-2022 09:18-0400 Diastolic blood pressure 84 mm[Hg] No Primary Care Physician [facility] 12-06-2022 09:18-0400 Systolic blood pressure 142 mm[Hg] No Primary Care Physician [facility] 12-06-2022 08:50-0400 Body mass index (BMI) [Ratio] 30.3 kg/m2 No Primary Care Physician [facility] 12-06-2022 08:50-0400 Body weight 75.29 kg No Primary Care Physician [facility] 12-06-2022 08:50-0400 Heart rate 81 /min No Primary Care Physician [facility] 12-06-2022 08:50-0400 Respiratory rate 18 /min No Primary Care Physician [facility] 12-06-2022 08:50-0400 SaO2% (BldA) [Mass fraction] 98 % No Primary Care Physician [facility] 03-09-2022 22:59-0500 Diastolic blood pressure 93 mm[Hg] No Primary Care Physician [facility] Work Phone: 03-09-2022 22:59-0500 Heart rate 88 /min No Primary Care Physician [facility] Work Phone: 03-09-2022 22:59-0500 Respiratory rate 16 /min No Primary Care Physician [facility] Work Phone: 03-09-2022 22:59-0500 SaO2% (BldA) [Mass fraction] 96 % No Primary Care Physician [facility] Work Phone: 03-09-2022 22:59-0500 Systolic blood pressure 184 mm[Hg] No Primary Care Physician [facility] Work Phone: 03-09-2022 22:47-0500 Body height 157.48 cm No Primary Care Physician [facility] Work Phone: 03-09-2022 22:47-0500 Body mass index (BMI) [Ratio] 30.5 kg/m2 No Primary Care Physician [facility] Work Phone: 03-09-2022 22:47-0500 Body temperature 96.7 [degF] No Primary Care Physician [facility] Work Phone: 03-09-2022 22:47-0500 Body weight 75.74 kg No Primary Care Physician [facility] Work Phone: 12-09-2021 11:00-0400 Body mass index (BMI) [Ratio] 30.2 kg/m2 No Primary Care Physician [facility] Work Phone: 12-09-2021 11:00-0400 Body weight 74.84 kg No Primary Care Physician [facility] Work Phone: 12-09-2021 11:00-0400 Diastolic blood pressure 77 mm[Hg] No Primary Care Physician [facility] Work Phone: 12-09-2021 11:00-0400 Heart rate 82 /min No Primary Care Physician [facility] Work Phone: 12-09-2021 11:00-0400 Respiratory rate 16 /min No Primary Care Physician [facility] Work Phone: 12-09-2021 11:00-0400 SaO2% (BldA) [Mass fraction] 97 % No Primary Care Physician [facility] Work Phone: 12-09-2021 11:00-0400 Systolic blood pressure 146 mm[Hg] No Primary Care Physician [facility] Work Phone: 11-25-2016 10:16-0400 BMI (Body [...] 10:16-0400 Respiratory Rate 18 /min Nallely Adams [facility] Work Phone: 11-25-2016 10:16-0400 Weight 78.67 kg Nallely Adams [facility] Work Phone: 06-02-2016 11:20-0400 BMI (Body Mass Index) 33.25 kg/m2 Shirley Jewell RN [facility] Work Phone: 06-02-2016 11:20-0400 BP Diastolic 70 mm[Hg] Shirley Jewell RN [facility] Work Phone: 06-02-2016 11:20-0400 BP Systolic 110 mm[Hg] Shirley Jewell RN [facility] Work Phone: 06-02-2016 11:20-0400 Height 157.48 cm Shirley Jewell RN [facility] Work Phone: 06-02-2016 11:20-0400 Pulse (Heart Rate) 64 /min Shirley Jewell RN [facility] Work Phone: 06-02-2016 11:20-0400 Respiratory Rate 16 /min Shirley Jewell RN [facility] Work Phone: 06-02-2016 11:20-0400 Weight 82.46 kg Shirley Jewell RN [facility] Work Phone: 03-10-2016 15:15-0500 BSA (Body Surface Area) 1.84 m2 Shirley Jewell RN [facility] Work Phone: 06-04-2015 08:51-0400 Heart rate 66 /min Nallely Bryan [facility] Work Phone: 10-02-2014 08:53-0400 Body Temperature 97.7 [degF] Shirley Jewell RN [facility] Group Work Phone: 10-02-2014 08:53-0400 Pulse Oximetry 96 % Shirley Jewell RN [facility] Work Phone: 07-23-2013 12:31-0400 Height 157.48 cm Shirley Jewell RN [facility] Work Phone: 07-23-2013 12:31-0400 Weight 85 kg Shirley Jewell RN [facility] Work Phone: 03-16-2013 14:28-0500 Heart rate 412 ms Nallely Adams [facility] Work Phone: Encounters Encounter Date Encounter Type Care Provider Facility Start: 11-14-2024 End: 11-14-2024 Patient encounter procedure Anali MENDEZ -[facility] Work Phone: Start: 11-14-2024 End: 11-14-2024 ambulatory Amadou Liu MD Work Phone: -[facility] Start: 11-14-2024 End: 11-14-[address] [facility] Facility:[facility] Start: 10-24-2024 End: 10-25-2024 Emergency department patient visit Amadou Liu MD Work Phone: -Emergency Department Work Phone: Start: 09-25-2024 Non-patient / Non-visit Dr. Juan Antonio Alaniz MD -[facility] Start: 09-25-2024 End: 09-25-2024 ambulatory Amadou Liu MD Work Phone: -Cardiovascular Services Start: 09-25-2024 End: 09-25-2024 Patient encounter procedure Anali Daniel PA -Cardiovascular Services Work Phone: Start: 09-25-2024 End: 09-25-[address] [facility] Facility:[facility] Start: 09-14-2024 End: 09-14-2024 Patient encounter procedure Anali MENDEZ -[facility] Work Phone: Start: 09-14-2024 End: 09-14-2024 ambulatory Amadou Liu MD Work Phone: -[facility] Start: 08-23-2024 End: 08-23-2024 Emergency department patient visit Amadou Liu MD Work Phone: -Emergency Department Work Phone: Start: 07-17-2024 Non-patient / Non-visit Dr. Octavio Lopez MD -[facility] Start: 07-17-2024 End: 07-17-2024 ambulatory Amadou Liu MD Work Phone: [facility] Work Phone: Start: 07-17-2024 End: 07-17-2024 Patient encounter procedure Anali MENDEZ -[facility] Work Phone: Start: 07-17-2024 End: 07-17-2024 ambulatory Chalon Calos Facility:[facility] Start: 06-21-2024 End: 06-21-2024 Patient encounter procedure Anali MENDEZ -[facility] Work Phone: Start: 06-21-2024 End: 06-21-2024 ambulatory Chalon Calos [facility] Start: 06-05-2024 End: 06-05-2024 Patient encounter procedure Anali MENDEZ -[facility] Work Phone: Start: 06-05-2024 End: 06-05-2024 ambulatory Amadou Liu MD Work Phone: [facility] Work Phone: Start: 06-05-2024 End: 06-05-2024 ambulatory Chalon Calos Facility:[facility] Start: 03-12-2024 Non-patient / Non-visit Dr. Octavio Lopez MD -[facility] Start: 03-12-2024 End: 03-12-2024 ambulatory Amadou Liu MD Work Phone: [facility] Work Phone: Start: 03-12-2024 End: 03-12-2024 Patient encounter procedure Amadou Liu MD Work Phone: -Cardiovascular Services Work Phone: Start: 03-12-2024 End: 03-12-2024 ambulatory JOEL VARMA Facility:[facility] Start: 02-24-2024 End: 02-24-[address] Amadou Liu MD -Laboratory, Specimen Work Phone: Start: 02-24-2024 End: 02-24-2024 [facility] Start: 02-22-2024 End: 02-22-2024 Patient encounter procedure Anali Daniel PA -[facility] Work Phone: Start: 02-22-2024 End: 02-22-2024 ambulatory Amadou Calos [facility] Start: 02-13-2024 Non-patient / Non-visit Dr. Octavio Lopez MD -[facility] Start: 02-13-2024 ambulatory Amadou Liu Facility:[facility] Start: 02-04-2024 Patient encounter status Amadou Liu MD Work Phone: [facility] Start: 02-04-2024 End: 02-04-2024 Emergency department patient visit Amadou [facility] Facility:[facility] Start: 01-23-2024 End: 01-23-2024 ambulatory Amadou [facility] Start: 01-23-2024 End: 01-23-2024 Emergency department patient visit MARIANNE Kaleigh MIRIAM KO [facility] Start: 01-10-2024 End: 01-10-2024 Emergency department patient visit Hiram Bill Facility:[facility] Start: 01-07-2024 Emergency department patient visit [place]IT [place] Facility:[facility] Start: 01-06-2024 End: 01-06-2024 ambulatory Rc Ramirez APRN.EDGING MACHINE CATCHER Work Phone: Cardiology Start: 01-06-2024 End: 01-06-2024 Patient encounter procedure Rc Ramirez HEALTH COUNSELOR.EDGING MACHINE CATCHER Work Phone: Cardiology Comment on above: TAVR Consult Start: 12-26-2023 End: 12-26-2023 Telephone encounter Whit George MD Work Phone: Cardiology Comment on above: Received Outside Med ical Records Start: 12-26-2023 ambulatory HWIT GEORGE [facility] Start: 12-23-2023 End: 12-23-2023 Telephone encounter Cardiac Surgeon - Unspecified [facility] Start: 12-23-2023 ambulatory [facility] Start: 12-21-2023 End: 12-21-2023 ambulatory Chalon Calos Facility:[facility] Start: 12-21-2023 ambulatory [facility] Start: 12-21-2023 End: 12-21-2023 [facility] Facility:[facility] Start: 01-23-2023 End: 01-23-2023 Emergency department patient visit No Primary Care Physician [facility]-Emergency Department Work Phone: Start: 12-15-2022 Non-patient / Non-visit No Primary Care Physician [facility] Work Phone: Start: 12-15-2022 Non-patient / Non-visit No Primary Care Physician [facility] Start: 12-15-2022 End: 12-15-2022 Patient encounter procedure [facility] Start: 12-06-2022 End: 12-06-2022 Patient encounter procedure No Primary Care Physician [facility] Work Phone: Start: 03-09-2022 End: 03-10-2022 Emergency department patient visit No Primary Care Physician [facility]-Emergency Department Start: 12-28-2021 Non-patient / Non-visit No Primary Care Physician [facility] Start: 12-28-2021 End: 12-28-2021 Patient encounter procedure No Primary Care Physician [facility]Card[facility] Services Start: 12-09-2021 End: 12-09-2021 Patient encounter procedure No Primary Care Physician [facility] Start: 06-15-2021 End: 06-15-2021 Patient encounter procedure [facility], [place] Procedures Date Procedure Procedure Detail Performing Clinician [...] JEVON Lopez MD Start: 06-04-2015 End: 06-04-2015 DIE KEEPER Anali Daniel PA-C Work Phone: Start: 06-04-2015 End: 06-04-2015 Ecg routine ecg w/least 12 lds w/i&r Anali Daniel PA-C Work Phone: Start: 06-04-2015 End: 06-04-2015 Follow Up Appt 6 months Anali cleary PA-C Work Phone: Start: 06-04-2015 End: 06-04-2015 DIE KEEPER Anali Daniel PA-C Work Phone: Start: 06-04-2015 [...] APRN.CNP Work Phone: Start: 07-10-2014 End: 07-10-2014 DIE KEEPER Anali Daniel PA-C Work Phone: Start: 07-10-2014 End: 07-11-2014 Documentation of current medications Anali Daniel PA-C Work Phone: Start: 07-10-2014 End: 07-10-2014 Follow Up Appt 4 months Anali cleary PA-C Work Phone: Start: 07-10-2014 End: 07-10-2014 Follow Up Appt Other Anali sutherland PA-C Work Phone: Start: 07-10-2014 End: 07-10-2014 DIE KEEPER Anali Daniel PA-C Work Phone: Start: 07-10-2014 [...] Octavio Lopez MD Start: 03-16-2013 End: 03-16-2013 DIE KEEPERSamir Daniel PA-C Work Phone: Start: 03-16-2013 End: [...] stent placement Anali MENDEZ Comment on above: YHT-RAF-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 18 mm Penta Stent 06/2001, 2 stents to RCA 02/08/24 at [facility] History of cataract extraction Hx of cataract surgery Amadou Liu MD Work Phone: SARS-CoV-2 & FLU Ant igen (Rapid) No Primary Care Physician Plan of Treatment Date Care Activity Detail Author Start: 11-14-2024 End: 11-14-2024 Evaluation of diagnostic study results [facility] Start: 10-25-2024 [facility] Start: 10-24-2024 [facility] Start: 08-23-2024 [facility] Start: 08-23-2024 [facility] Start: 11-06-2023 Covid-19 Vaccine ( season) Covid-19 Vaccine ( season) [facility] Start: 11-06-2023 Influenza vaccination Influenza Vaccine (#1) [facility] Start: 03-07-2023 Advance Directive Discussion Advance Directive Discussion [facility] Start: 01-23-2023 [facility] Start: 01-23-2023 [facility] Start: 08-26-2017 Diabetes Screening Diabetes Screening [facility] Start: 06-01-2017 End: 06-01-2017 Appointment [facility] Work Phone: Start: 11-25-2016 End: 11-25-2016 Echocardiography Echocardiogram (complete) [facility] Work Phone: Start: 11-25-2016 End: 11-25-2016 Follow Up Appt 6 months Follow Up Appt 6 months [facility] Work Phone: Start: 11-25-2016 End: 11-25-2016 MMM MMM [facility] Work Phone: Start: 11-25-2016 End: 12-20-2016 Nuclear stress test -Lexiscan Nuclear stress test -Lexiscan [facility] Work Phone: Start: 11-25-2016 End: 11-25-2016 Appointment Appointment [facility] Work Phone: Start: 11-25-2016 End: 11-25-2016 Echocardiography Echocardiogram (complete) [facility] Work Phone: Start: 11-25-2016 End: 11-25-2016 Follow Up Appt 6 months Follow Up Appt 6 months [facility] Work Phone: Start: 11-25-2016 End: 11-25-2016 MMM MMM [facility] Work Phone: Start: 11-25-2016 End: 11-25-2016 Nuclear stress test -Lexiscan Nuclear stress test -Lexiscan [facility] Work Phone: Start: 06-02-2016 End: 06-02-2016 DIE KEEPER DIE KEEPER [facility] Work Phone: Start: 06-02-2016 End: 06-02-2016 Follow Up Appt 6 months Follow Up Appt 6 months [facility] Work Phone: Start: 06-02-2016 End: 06-02-2016 DIE KEEPER DIE KEEPER [facility] Work Phone: Start: 06-02-2016 End: 06-02-2016 Follow Up Appt 6 months Follow Up Appt 6 months [facility] Work Phone: Start: 03-10-2016 End: 05-24-2016 Ambulatory BP Monitor 24 HR Ambulatory BP Monitor 24 HR [facility] Work Phone: Start: 03-10-2016 End: [...] 6 months Follow Up Appt 6 months [facility] Work Phone: Start: 12-03-2015 End: 12-03-2015 MMM MMM [facility] Work Phone: Start: 12-03-2015 End: 12-03-2015 Follow Up Appt 6 months Follow Up Appt 6 months [facility] Work Phone: Start: 12-03-2015 End: 12-03-2015 MMM MMM [facility] Work Phone: Start: 06-04-2015 End: 06-04-2015 DIE KEEPER DIE KEEPER [facility] Work Phone: Start: 06-04-2015 End: 06-04-2015 Ecg routine ecg w/least 12 lds w/i&r EKG (In office) [facility] Work Phone: Start: 06-04-2015 End: 06-04-2015 Follow Up Appt 6 months Follow Up Appt 6 months [facility] Work Phone: Start: 06-04-2015 End: 06-04-2015 DIE KEEPER DIE KEEPER [facility] Work Phone: Start: 06-04-2015 End: 06-04-2015 Electrocardiogram, complete EKG (In office) [facility] Work Phone: Start: 06-04-2015 End: 06-04-2015 Follow Up Appt 6 months Follow Up Appt 6 months [facility] Work Phone: Start: 12-04-2014 End: 12-04-2014 Follow Up Appt 6 months Follow Up Appt 6 months [facility] Work Phone: Start: 12-04-2014 End: 12-04-2014 MMM MMM [facility] Work Phone: Start: 12-04-2014 End: 12-04-2014 Follow Up Appt 6 months Follow Up Appt 6 months [facility] Work Phone: Start: 12-04-2014 End: 12-04-2014 MMM MMM [facility] Work Phone: Start: 07-10-2014 End: 07-10-2014 DIE KEEPER DIE KEEPER [facility] Work Phone: Start: 07-10-2014 End: 07-10-2014 Follow Up Appt 4 months Follow Up Appt 4 months [facility] Work Phone: Start: 07-10-2014 End: 07-10-2014 Follow Up Appt Other Follow Up Appt Other [facility] Work Phone: Start: 07-10-2014 End: 07-10-2014 DIE KEEPER DIE KEEPER [facility] Work Phone: Start: 07-10-2014 End: 07-10-2014 Follow Up Appt 4 months Follow Up Appt 4 months [facility] Work Phone: Start: 07-10-2014 End: 07-10-2014 Follow Up Appt Other Follow Up Appt Other [facility] Work Phone: Start: 07-03-2014 End: 07-03-2014 Follow Up Appt 3 months Follow Up Appt 3 months [facility] Work Phone: Start: 07-03-2014 End: 07-03-2014 Pulmonary Function Test - complete Pulmonary Function Test - complete [facility] Work Phone: Start: 07-03-2014 End: 07-03-2014 Follow Up Appt 3 months Follow Up Appt 3 months [facility] Work Phone: Start: 07-03-2014 End: 07-03-2014 Pulmonary Function Test - complete Pulmonary Function Test - complete [facility] Work Phone: Start: 04-11-2014 End: 04-11-2014 Follow Up Appt 3 months Follow Up Appt 3 months [facility] Work Phone: Start: 04-11-2014 End: 04-11-2014 MMM MMM [facility] Work Phone: Start: 04-11-2014 End: 04-11-2014 Follow Up Appt 3 months Follow Up Appt 3 months [facility] Work Phone: Start: 04-11-2014 End: 04-11-2014 MMM MMM [facility] Work Phone: Start: 08-02-2013 End: 08-02-2013 Follow Up Appt Other Follow Up Appt Other [facility] Work Phone: Start: 08-02-2013 End: 08-02-2013 Follow Up Appt Other Follow Up Appt Other [facility] Work Phone: Start: 07-23-2013 End: 07-04-2014 *Hepatic Function Panel *Hepatic Function Panel [facility] Work Phone: Start: 07-23-2013 End: 07-04-2014 *Hepatic Function Panel *Hepatic Function Panel [facility] Work Phone: Start: 07-20-2013 End: 07-22-2013 *BMP *BMP [facility] Work Phone: Start: 07-20-2013 End: 07-22-2013 CBC W Auto Differential panel - Blood *CBC without Diff [facility] Work Phone: Start: 07-20-2013 End: 07-04-2014 Chest x-ray X-Ray, Chest, PA & Lateral [facility] Work Phone: Start: 07-20-2013 End: 07-20-2013 Ecg routine ecg w/least 12 lds w/i&r EKG (In office) [facility] Work Phone: Start: 07-20-2013 End: 07-20-2013 Echocardiography Echocardiogram (complete) [facility] Work Phone: Start: 07-20-2013 End: 07-22-2013 INR Coag RelTime (PPP) *PT/INR [facility] Work Phone: Start: 07-20-2013 End: 07-20-2013 Left Heart Cath Left Heart Cath [facility] Work Phone: Start: 07-20-2013 End: 07-22-2013 *BMP *BMP [facility] Work Phone: Start: 07-20-2013 End: 07-22-2013 CBC W Auto Differential panel - Blood *CBC without Diff [facility] Work Phone: Start: 07-20-2013 End: 07-04-2014 Chest x-ray X-Ray, Chest, PA & Lateral [facility] Work Phone: Start: 07-20-2013 End: 07-22-2013 Coagulation factor induced.INR assay in platelet poor plasma *PT/INR [facility] Work Phone: Start: 07-20-2013 End: 07-20-2013 Echocardiography Echocardiogram (complete) [facility] Work Phone: Start: 07-20-2013 End: 07-20-2013 Electrocardiogram, complete EKG (In office) [facility] Work Phone: Start: 07-20-2013 End: 07-20-2013 Left Heart Cath Left Heart Cath [facility] Work Phone: Start: 03-16-2013 End: 03-16-2013 DIE KEEPER DIE KEEPER [facility] Work Phone: Start: 03-16-2013 End: 03-16-2013 Follow Up Appt 1 year Follow Up Appt 1 year [facility] Work Phone: Start: 03-16-2013 End: 03-16-2013 Follow Up Appt Other Follow Up Appt Other [facility] Work Phone: Start: 03-16-2013 End: 03-16-2013 DIE KEEPER DIE KEEPER [facility] Work Phone: Start: 03-16-2013 End: 03-16-2013 Follow Up Appt 1 year Follow Up Appt 1 year [facility] Work Phone: Start: 03-16-2013 End: 03-16-2013 Follow Up Appt Other Follow Up Appt Other [facility] Work Phone: Start: 12-29-2012 End: 12-29-2012 Follow Up Appt 6 months Follow Up Appt 6 months [facility] Work Phone: Start: 12-29-2012 End: 12-29-2012 MMM MMM [facility] Work Phone: Start: 12-29-2012 End: 12-29-2012 Follow Up Appt 6 months Follow Up Appt 6 months [facility] Work Phone: Start: 12-29-2012 End: 12-29-2012 MMM MMM [facility] Work Phone: Start: 05-17-2012 End: 08-02-2013 *Hepatic Function Panel *Hepatic Function Panel [facility] Work Phone: Start: 05-17-2012 End: 08-02-2013 Lipid 1996 panel *Lipid Profile [facility] Work Phone: Start: 05-17-2012 End: 08-02-2013 *Hepatic Function Panel *Hepatic Function Panel [facility] Work Phone: Start: 05-17-2012 End: 08-02-2013 Lipid panel [AGGREGATE] *Lipid Profile [facility] Work Phone: Start: 02-21-2012 End: 02-21-2012 Follow Up Appt 1 year Follow Up Appt 1 year [facility] Work Phone: Start: 02-21-2012 End: 02-21-2012 Follow Up Appt 1 year Follow Up Appt 1 year [facility] Work Phone: Start: 02-15-2011 End: 02-15-2011 Follow Up Appt 1 year Follow Up Appt 1 year [facility] Work Phone: Start: 02-15-2011 End: 02-15-2011 Follow Up Appt 1 year Follow Up Appt 1 year [facility] Work Phone: Start: 2010 RSV Vaccine (1 - 1-dose 75+ series) RSV Vaccine (1 - 1-dose 75+ series) [facility] Start: 2000 Pneumococcal Vaccine: 65+ (1 of 1 - PCV) Pneumococcal Vaccine: 65+ (1 of 1 - PCV) [facility] Start: 2000 Screening for osteoporosis Bone Density Screening [facility] Start: 1985 Shingrix Vaccine (1 of 2) Shingrix Vaccine (1 of 2) [facility] Start: 1954 Urine microalbumin profile DTaP,Tdap,Td Vaccine (1 - Tdap) [facility] Start: 1953 Anxiety Screening Anxiety Screening [facility] Start: 1953 Depression Screening Depression Screening [facility] Comprehensive metabo lic 1999 panel - Serum or Plasma [facility] Lipid 1995 panel - S jerardo or Plasma [facility] Work Phone: Lipid 1995 panel - S jerardo or Plasma [facility] Lipid 1995 panel - S jerardo or Plasma [facility] Patient Education [facility] Work Phone: Patient referral [facility] Work Phone: Renal artery [facility] Payers Date Payer Category Payer Self-pay [id number] 2023 Unknown [id number] 2000 Medicare [id number] 2000 Medicare [id number] [facility] [id number] 1935 Unknown [id number] 2.16.8 [id number] Unknown [id number] 2.16.8 [id number] Unknown [id number] 2.16.8 [id number] Unknown [id number] 2.16.8 40.1.094749.3.579.2.462 Unknown [id number] 2.16.8 40.1.810885.3.579.2.462 Unknown [id number] 2.16.8 40.1.191633.3.579.2.462 Unknown [id number] 2.16.8 40.1.659817.3.579.2.462 Unknown [id number] 2.16.8 40.1.073676.3.579.2.462 Unknown [id number] 2.16.8 40.1.501588.3.579.2.462 Unknown [id number] 2.16.8 40.1.058088.3.579.2.462 Unknown [id number] 2.16.8 40.1.800758.3.579.2.462 Unknown [id number] 2.16.8 40.1.094560.3.579.2.462 Unknown [id number] 2.16.8 40.1.562955.3.579.2.462 Unknown [id number] 2.16.8 40.1.270659.3.579.2.462 Unknown [id number] 2.16.8 40.1.236136.3.579.2.462 Unknown [id number] 2.16.8 40.1.488938.3.579.2.462 Unknown [id number] 2.16.8 40.1.398700.3.579.2.462 Unknown [id number] 2.16.8 40.1.720009.3.579.2.462 Unknown [id number] 2.16.8 40.1.793588.3.579.2.462 Unknown [id number] 2.16.8 40.1.666088.3.579.2.462 Unknown [id number] 2.16.8 40.1.724617.3.579.2.462 Unknown [id number] 2.16.8 40.1.329500.3.579.2.462 Unknown [id number] 2.16.8 [id number] Unknown [id number] 2.16.8 [id number] Social History Date Type Detail Facility Start: 01-12-2021 End: 01-23-2023 Tobacco smoking status NHIS Unknown if ever smoked [facility] Start: 02-28-2020 With Family [facility] Start: 12-24-2019 Non-smoker [facility] Start: 1935 Sex Assigned At Female [facility] Start: 1935 Sex assigned at Not on file [facility] Gender identity Not on file [facility] Start: 08-28-2014 End: 10-24-2024 Tobacco smoking status NHIS Never smoked tobacco [facility] Start: 08-28-2014 Tobacco use and exposure Smokeless tobacco non-user [facility] Start: 08-28-2014 Alcoholic beverage intake Current non-drinker of alcohol (finding) [facility] Start: 06-11-2024 End: 06-11-2024 Sex Female (finding) [facility] Goals Date Patient Goal Desired Activity /State Personal health goal Functional Status Date Assessment Result Facility 01-23-2024 Functional Status Room check performed [facility] Mental Status Date Assessment Result Facility 10-24-2024 Cognitive function Voice/Name [facility] Work Phone: 08-23-2024 Cognitive function Voice/Name [facility] Work Phone: 01-23-2024 Mental Status Oriented x 4 [facility] 01-23-2023 Cognitive function Level Of Cons ciousness Awake;Alert;Appropriate;Follow s Commands [facility] Work Phone: Clinical Notes 06-19-2001 to 10-25-2024 Note Date & Type Note Facility 10-25-2024 Discharge summary [facility] 10-24-2024 Radiology Diagnostic study note [facility] Imaging Services [address] [place], [place] [address] CTA Chest W/WO Contrast MR#: [id number] Acct: [id number] Name: GINA WORTHINGTON Rep #: [id number] : 1935 F 89 From: Galo Galarza MD PCP: Dr. Amadou Liu MD Status: REG ER Study:CTA Chest W/WO Contrast Date of Exam: 10/24/24 Exam# [id number] Ordering Dr: Steve Farnsworth DO PROCEDURE: CTA [...] pole of the right kidney. Reading Location: [facility] CC: Dr. Amadou Liu MD; Dr. Steve Farnsworth DO ~ Dye Automation Operator: Signed [facility] 10-24-2024 Radiology Diagnostic study note [facility] Imaging Services [address] [place] [address] Chest 1 View (Portable) MR#: [id number] Acct: [id number] Name: GINA WORTHINGTON Rep #: [id number] : 1935 F 89 From: Kedar Cotto MD PCP: Dr. Amadou Liu MD Status: REG ER Study:Chest 1 View (Portable) Date of Exam: 10/24/24 Exam# [id number] Ordering Dr: Steve Farnsworth DO ADDENDUM by Dr. Daryl Cotto MD on 10/24/24 at 2157 Findings were communicated with the ordering physician Dr. Marvin Farnsworth 9:32 p.m.. 10/24/2024. Reading Location: [facility] 10/24/242156 Date cc: Dr. Amadou Liu [...] be performed for further evaluation. Reading Location: [facility] CC: Dr. Amadou Liu MD; Dr. Steve Farnsworth DO ~ Dye Automation Operator: Signed [facility] 10-24-2024 Discharge summary Note Date/Time October 25, 2024 12:22am [facility] Medical Records Department [address] [place] [address] Emergency Department Summary 10/24/24 MR#: [id number] Acct: [id number] Name: GINA WORTHINGTON Rep #:[id number] : 1935 89 From: Steve Witt PCP: [...] Recent Immobilization or Prior DVT or PE [facility] Medical History Anemia Back pain GERD (gastroesophageal reflux disease) Obesity Deep vein thrombosis Essential (primary) hypertension Nonrheumatic aortic (valve) stenosis Hyperlipidemia Atherosclerotic heart disease of [place] coronary artery without angina pectoris Home Medications [...] lesions of 80%. 2355: I spoke with mushroom packer Dr. Lopez agrees with starting Imdur will start at 60 mg with her elevated blood pressure. Patient states her nitroglycerin sublingual was out of date. I will refill this. She will follow-up with cardiology office. Return precautions. All questions were answered. Re-evaluation: stable Disposition discussed with patient/family/significant other: Patient and family Case discussed with consulting clinician: N/A This note was generated with [employer] Payroll dictation software. It may contain incorrectwords, spelling, and punctuation that were not noted in checking the note beforesigning. Lab Data Attestation: I reviewed the patient's lab results. Labs: Laboratory Results - last 24 hr 10/24/24 10/24/24 20:50 23:00 WBC 4.5 RBC 3.66 L Hgb 12.0 Hct 35.9 L MCV 98.1 MCH 32.8 H MCHC 33.4 RDW Std Deviation 51.9 H RDW Coeff of Helaido 14.4 Plt Count 203 MPV 11.6 Immature Gran % (Auto) 0.400 Neut % (Auto) 65.6 Lymph % (Auto) 24.4 Mason % (Auto) 7.8 Eos % (Auto) 0.9 [...] be performed for further evaluation. Reading Location: [facility] Chest CTA 10/24/24 21:45 IMPRESSION: 1. No acute intrathoracic findings. No pulmonary arterial emboli. 2. Cardiomegaly. No thoracic aortic aneurysm or dissection. Moderate atherosclerotic disease. 3. Few small nonobstructive renal stones seen in the upper pole of the right kidney. Reading Location: [facility] Discharge Plan Triage Chief Complaint: Chest Pain [...] Anali Daniel PA [Med Staff - [facility] Practice Prof] - 1 Week Activity Restrictions/Additional [...] with Anali in the office. Print Language: Lao Disposition Disposition: Home, Self Care What to do if you have Problems For any increased pain, shortness of breath, bleeding, nausea or vomiting, chestpain, or any unexpected problems, contact your Primary Care Provider. Call [facility] ([phone]) or report to the closest Emergency Room. Call 911 if necessary. 10/25/24 0022 <Electronically signed by Steve Witt> Cosigner Signature (if applicable): CC: Dr. Amadou Liu MD; ANDREA Wills ~ Signed [facility] Work Phone: 1(625) 596-184207-11-2025 Evaluation note* Diagnosis Onset Date Resolution Status Admit Date Deep vein thrombosis acute September 14, 2024 8:50am Essential (primary) hypertension chronic September 14, 2024 8:50am History of coronary artery stent placement June 19, 2001 chronic September 14, 2024 8:50am Hyperlipidemia chronic September 14, 2024 8:50am S/P TAVR (transcatheter aortic valve replacement) February 09, 2024 chronic Sep 8:50am [facility] Work Phone: 1(171) 344-544907-11-2025 Evaluation note* Diagnosis Onset Date Resolution Status [...] February 09, 2024 chronic Sep 2024 9:16am [facility] Work Phone: 1(687) 597-426804-01-2025 Evaluation note* Diagnosis Onset Date Resolution Status [...] 09, 2024 chronic Apr il 2024 8:21am [facility] Work Phone: 1(353) 456-227804-01-2025 Evaluation note* Diagnosis Onset Date Resolution Status [...] replacement) February 09, 2024 chronic Sep 8:50am [facility] Work Phone: 1(959) 711-452712-18-2024 Evaluation note* Diagnosis Onset Date Resolution Status [...] February 09, 2024 chronic Apr 2024 11:25am [facility] Work Phone: 1(901) 957-408111-18-2024 Hospital Discharge instructions Patient Education 01/23/2024 05:46:33 [...] that stimulates the heart. This includes many xcan-wfn-kpgjdkn cold and sinus decongestant pills and sprays, as well as diet pills. Check the warnings about high blood pressure on thelabel. Before purchasing any popn-ffz-sbfapav medicines or supplements, always ask the pharmacist [...] on home blood pressure monitoring from the [employer] [place] [employer]. Don't smoke or drink coffee [...] of the face Trouble speaking or seeing 9528-8838 The [employer]. [address] [place] [address]. All rights reserved. This information is not intended as a substitute for professional medical care. Always follow yourhealthcare professional's instructions. Follow Up Care 01/23/2024 02:30:07 With:LIBORIO SAENZ MD Address: [address] [facility] [address] [facility] [place] [address]- [phone] When:2-4 days With:AMADOU LIU MD Address: [address] [facility] [address] [place] [address] [phone] When:2-[address] [facility] 11-18-2024 Emergency department Discharge summary Discharge Instructions Thank you for allowing [facility] to assist you with your healthcare needs. The following is importantdischarge information regarding your hospital visit. What to Do Next Instructions from Your Care Team No qualifying data available. Post Acute Orders No qualifying data available. You Need to Schedule the Following Appointments Follow Up with LIBORIO SAENZ MD When:Within 2-4 days Where:[address] [facility] [address] [facility] [place] [address]- [phone] Follow Up with AMADOU LIU MD When:Within 2-4 days Where:[address] [place] [address] [phone] Allergies erythromycin Medications Please ask your primary [...] that stimulates the heart. This includes many zvto-okw-xyktlse cold and sinus decongestant pills and sprays, as well as diet pills. Check the warnings about high blood pressure on thelabel. Before purchasing any ydga-wsf-inddxsz medicines or supplements, always ask the pharmacist [...] on home blood pressure monitoring from the [employer] [place] [employer] [place] [employer]. Don't smoke or drink coffee [...] of the face Trouble speaking or seeing 6744-2301 [employer]. [address] [place] [address]. All rights reserved. This information is not intended as a substitute for professional medical care. Always follow yourhealthcare professional's instructions. Additional Information VACCINATE! IT SAVES LIVES! Members of the community who have not yet received the COVID-19 vaccine and would like to receive it can visit one of [facility] vaccine clinics. There are many vaccine clinic locations within the [facility]. For locations and available times, please visit www.gettheshot.coronavirus.[place].gov/. It is important to note that some COVID mobile vaccine clinics are held outdoors and may be canceled in rainy or stormy conditions. To learn more about pediatric vaccinations (ages 5-11), we invite you to visit the [facility] webpage. https://www.[facility].org/pages/7211-Gzgdk-Kntrowjrqad-Tcpwkfgesa-Kjkzr-Uyy stions.htmlTo learn more about the COVID-19 vaccine, we invite you to visit the CDC website for a list of frequently asked questions. https://www.cdc.gov/coronavirus/2019-ncov/vaccines/faq.html [employer] Patient Portal Access Instructions: Stay connected with your healthcare team and access your personal medical information anytime with the [employer] Patient Portal. If you would like a full copy of your medical records please contact the [facility] Medical Records Department Tuesday through Tuesday between 8a.m. and 4:30p.m. Please follow the directions below to access the portal: 1.Access the email account you provided upon registration to the [facility].2.Look for an invitation email from [facility].3.Open the email and access the invitation link: Accept Invitation to [employer]4.Fill in the required loaiza to create your account. Sign into [email or web address] with your username and password that you [...] you will allow to register on the [employer] Patient Portal for access to your information. You can also access the [employer] Patient Portal on the [employer] alfreda. Simply click on Health Records under sellpoints and then click on the [employer] logo. HOW TO SAFELY DISPOSE OF PRESCRIPTION [...] Call your local pharmacy or go to [email or web address] to find one close to you.3.Make use of household items: Use cat litter or old coffee grounds to dispose medications if other options arenot available. Mix your drugs with these household products, seal them in an airtight container andthrow it into the garbage. Call [facility]: [phone] to be sure your drugs can be [...] aware that I should contact my doctor. Patient/Wafer Fabricator Signature: Date/Time: Relationship to Patient: Witness Name/Signature: Date/Time[id number] Note ORIGINAL EXAMINATION: CT OF THE HEAD [...] Sign Date: 01/23/2024 4:06:01 AM Ordering Provider: [facility]11-18-2024 Note ORIGINAL EXAMINATION: ONE XRAY VIEW OF [...] Sign Date: 01/23/2024 3:33:33 AM Ordering Provider: [facility]11-18-2024 NoteSINUS RHYTHM ABNORMAL R-WAVE PROGRESSION, EARLY TRANSITION PROBABLE LEFT VENTRICULAR HYPERTROPHY Electronic Signature: MARIANNE PINEDA 01/23/2024 05:54:09[facility] 11-01-2024 NoteHNO ID: [id number] Author: RC RAMIREZ APRN.EDGING MACHINE CATCHER Service: ? Author Type: Nurse Practitioner Type: Progress Notes Filed: 01/06/2024 10:42 Note Text: TAVR STRUCTURAL REVIEW FORM Orders placed by: Erik Lucas APRN ([facility]) Records Reviewed: 01/06/2024 Appt request sent: 01/06/2024 Records in [facility] have been reviewed. Severe . Request has been sent to the horticultural specialty grower field who will arrange an appointment schedule. Please [...] greater, then it should be by an Acquisition Editor ONLY (Dr. Arias, Dr. George, Dr. Mcnulty, Dr. Cruz, Dr. Benedict, Dr. Linn, Dr. Peoples,Dr. Loredo, Dr. Lewis, Dr. Lozoya, Dr. Figueroa and Dr. Graham) DAY THREE: Nuclear Medicine- Amyloid SPECT Structural Valve Clinic appointment PFT?s (spirometry, diffusing capacity) Patient is also to be seen by Dr. Richardson/Dr. Limon/Dr. Stephen/Dr. Read/ Dr. Lovell/Dr. Portillo/Dr. Wilkins/Dr. Magana/ Dr. Olivia/ Dr. Orr/Dr. Douglas. Rc Ramirez APRN.[facility]11-01-2024 History of Present illness Narrative* Rc Ramirez APRN.EDGING MACHINE CATCHER - 01/06/2024 10:14 AM EDT Images from the original note were not included. TAVR STRUCTURAL REVIEW FORM Orders placed by: Erik Lucas APRN ([facility]) Records Reviewed: 01/06/2024 Appt request sent: 01/06/2024 Records in [facility] have been reviewed. Severe . Request has been sent to the horticultural specialty grower field who will arrange an appointment schedule. Please [...] greater, then it should be by an Acquisition Editor ONLY (Dr. Arias, , Dr. Mcnulty, Dr. [...] Douglas. Rc Ramirez APRN.CNP [facility] Telephone encounter Note * Telephone Encounter - Melissa Friend - 12/26/2023 4:59 PM EDT Images from the original note were not included. Received referral to Dr. George for TAVR, uploaded under scanned documents Echo 12/21/2023 (No Images) CXR 01/23/2023 (No Images) Faxed request for images: [facility]10-21-2024 Miscellaneous Notes* Telephone Encounter - Melissa Friend - 12/26/2023 4:59 PM EDT Images from the original note were not included. Received referral to Dr. George for TAVR, uploaded under scanned documents Echo 12/21/2023 (No Images) CXR 01/23/2023 (No Images) Faxed request for images: documented in [facility] encounterMem[facility]24 Telephone encounter Note * Telephone Encounter - José Luis Jett - 12/23/2023 8:33 AM EDT RECEIVED CALL FROM: Family member - Name: Maria Victoria PATIENT INFORMATION: Name: Gina Worthington : 1935 (home) Email: [email or web address] Referring Provider: No referring provider defined for this encounter. Phone: N/A Fax: Requested Surgeon: First Available/Unspecified Reason for appointment/diagnosis : Aortic stenosis José Luis Jett December 23, 2023 8:34 AM [facility]10-18-2024 Miscellaneous Notes* Telephone Encounter - José Luis Jett - 12/23/2023 8:33 AM EDT RECEIVED CALL FROM: Family member - Name: Maria Victoria PATIENT INFORMATION: Name: Gina Polanco Dev : 1935 (home) Email: [email or web address] Referring Provider: No referring provider defined for this encounter. Phone: N/A Fax: Requested Surgeon: First Available/Unspecified Reason for appointment/diagnosis : Aortic stenosis José Luis Jett December 23, 2023 8:34 AM documented in this encounterMem[facility]04-15[facility] Evaluation note* Diagnosis Onset Date Resolution Status Essential (primary) hypertension chronic History of coronary artery stent placement June 19, 2001 chronic Hyperlipidemia chronic Nonrheumatic aortic (valve) stenosis chronic [facility] Work Phone: Discharge summary Author Mario Cruz [facility] January 23, 2023 10:47am Note Date/Time January 23, 2023 9:36am [facility] Medical Records Department [address] [place] [address] Emergency Department Summary 01/23/23 MR#: [id number] Acct: [id number] Name: WORTHINGTON,GINA Polanco Rep #:[id number] : 1935 87 From: Mario Cruz DO [...] she tries to keep away from these. [facility] Medical History Atherosclerotic heart disease of [place] coronary artery without angina pectoris Deep vein [...] % (Auto) 63.9 Lymph % (Auto) 26.2 Mason % (Auto) 8.1 Eos % (Auto) 0.8 [...] your Primary Care Provider. Call [facility] ([phone]) or report to the closest Emergency Room. Call 911 if necessary. 01/23/23 1047 <Electronically signed by Mario Cruz DO> Cosigner Signature (if applicable): CC: No Primary Care Physician ~ Signed [facility] Work Phone: Evaluation + Plan note Future Appointments Appointment Date:01/26/2024 02:30:00 PM Scheduled Provider:AMRITA CHAVARRIA Location:[facility] Appointment Type:CV DREDGING INSPECTOR [facility] Evaluation noteNo assessment information available [facility] Work Phone: Evaluation note* Diagnosis Nonrheumatic aortic valve stenosis- Primary Aortic valve disorders documented in this encounter [facility] course Narrative No data available for this section [facility] Hospital Discharge instructions Additional Instructions Albuterol MDI: 2 puffs every 4 hours as needed for cough/wheezing.[facility] Work Phone: Hospital Discharge instructions Additional Instructions Your workup showed no sign of heart damage or kidney damage associated from your high blood pressure this evening. Please continue all of your blood pressure medications as directed by your family doctor and follow-up with them for repeat evaluation. Return to the ER should you have any further concernsWSt. Anthony's Hospital Work Phone: Hospital Discharge instructionsAdditional Instructions Cardiac workup negative. Your CT angiogram chest also negative. Blood pressure elevated in the ED. Discussed with Dr. Lopez, take isosorbide mononitrate as prescribed once daily this will help your blood pressure along with potential keeping symptoms from returning. You were refilled for your sublingual nitro to use as needed. Follow-up with Anali in the office.[facility] Work Phone: Reason for referral (narrative)No reason for referral information availableWSt. Anthony's Hospital Work Phone: Summary note* Roxie Hines: PERFORM Event Display: Patient Summary Documents Authored Date: [id number] [facility] Advance Directives Advance Directive Response Recorded Date/ Time Advance Directives No April 13, 2016 3:02am Living Will No December 06 3:42pm Power of Dinkey Engine Firer/Fireman No December 06 021 3:42pm Advance Directive Response Recorded Date/ Time Name of Medical Power of Dinkey Engine Firer/Fireman MARA LARA March 09, 2022 10:59pm Advance Directives No April 13, 2016 2:02am Living Will No March 09 3 10:59pm Power of Dinkey Engine Firer/Fireman Yes March 09 023 10:59pm Advance Directive Response Recorded Date/ Time Advance Directives No April 13, 2016 2:02am Living Will No January 23 023 10:58am Power of Dinkey Engine Firer/Fireman No January 23, 2023 10:58am Advance Directive Response Recorded Date/ Time Living Will Yes November 07 024 12:36am Do you have a Healthcare Power of Dinkey Engine Firer/Fireman? Yes November 08, 2023 12:36am Advance Directives No April 13, 2016 3:02am Advance Directive Response Recorded Date/ Time Advance Directives No April 13, 2016 3:02am Advance Directive Response Recorded Date/ Time Do you have a Healthcare Power of Dinkey Engine Firer/Fireman? No August 23, 2024 12:35am Advance Directives No April 13, 2016 3:02am Advance Directive Response Recorded Date/ Time Do you have a Healthcare Power of Dinkey Engine Firer/Fireman? Yes October 24, 2024 9:13pm Do you have a Healthcare Power of Dinkey Engine Firer/Fireman? No August 23, 2024 12:35am Advance Directives [...] HYPERTENSION October 24, 2024 8: 27pm S/P [facility] 20 CP November 14, 2024 [...] Provider, Refer ring Provider Active Priyanka Marks DREDGING INSPECTOR, DREDGING INSPECTOR-C Attending Provider Active Team Status: Active Member Role Status Dates No Primary Care Physician Primary Care Provider Active Dr. Octavio Lopez MD Attending Provider Active Team Status: Active Member Role Status Dates No Primary Care Physician Primary Care Provider Active Priyanka Marks DREDGING INSPECTOR, DREDGING INSPECTOR-C Attending Provider Active Team Status: Inactive Member Role Status Dates No Primary Care Physician Primary Care Provider Active Dr. Octavio Lopez MD Other Provider Active Priyanka Marks DREDGING INSPECTOR, DREDGING INSPECTOR-C Attending Provider, Referring Apple moreno Active Team [...] 2024 End: August 23, 2024 Dr. Ruiz Lou DO Attending Provider Active Start: August 23, [...] DATE CREATED AUTHOR AUTHOR'S ORGANIZ ATION 12/25/2023 [facility] DATE CREATED AUTHOR AUTHOR'S ORGANIZ ATION 01/11/2024 [facility] DATE CREATED AUTHOR AUTHOR'S ORGANIZ ATION 02/20/2024 [facility] DATE CREATED AUTHOR AUTHOR'S ORGANIZ ATION 11/28/2024 [facility] Source Comments (unrecognize d section and content) In the event this informatio n is protected by the Federal Confidentiality of Alcohol and Drug Abuse Patient Records regulations: The Federal rules restrict any use of the information to criminally investigate or prosecute any alcohol or drug abuse patient.[facility] HospitalIn the event this information is protected by the Federal Confidentiality of Alcohol and Drug Abuse Patient Records regulations: The Federal rules restrict any use of the information to criminally investigate or prosecute any alcohol or drug abuse patient.[facility] HospitalIn the event this information is protected by the Federal Confidentiality of Alcohol and Drug Abuse Patient Records regulations: The Federal rules restrict any use of the information to criminally investigate or prosecute any alcohol or drug abuse patient.[facility] Reason for Visit (unrecogniz ed section [...] BE BASED ON THE PRIMARY CLINICAL RECORDS. [employer] provides no warranty or guarantee of the accuracy or completeness of information in this document.
[2025-01-01] MEDS: APIXABAN 2.5 MG TABLET (WCH) PO (22:57)
[2025-01-01 23:26] LABS: Troponin T High Sens 4 HR 13 ng/L (<=14)
[2025-01-02] MEDS: 0.9% Normal Saline (250mL Bag) 250 ML 999 ML IV (01:34)
[2025-01-02 03:16] VITALS: BMI 26.6
[2025-01-02 05:03] VITALS: BP 140/67; PULSE 80; RESP 16; TEMP 36.6; O2SAT 98
[2025-01-02 05:52] LABS: Hematocrit 35.5 % (37-47); Hemoglobin 11.9 g/dL (12.0-15.0); Immature Granulocytes Count 0.010 X10^3/uL (0.0-0.0); Mean Corp Hgb Conc 33.5 g/dL (32-36); Mean Corpuscular Volume 98.1 fL (81-99); Mean Platelet Vol. 11.9 fl (6.2-12.0); NRBC Flagged by Analyzer 0 % (0-5); Platelet Count 209 K/mm3 (150-450); RBC Distribution Width CV 14.6 % (11.6-14.6); RBC Distribution Width SD 53.2 fl (35.1-43.9); Red Blood Count 3.62 M/mm3 (4.2-5.4); White Blood Count 5.1 K/mm3 (4.4-11.0)
[2025-01-02 06:22] LABS: AST(SGOT) 31 U/L (<=31); Alanine Aminotransfer ALT/SGPT 20 U/L (<=34); Albumin, Serum 3.7 g/dL (3.4-4.8); Alkaline Phosphatase 51 U/L (35-104); Anion Gap 9 (5-15); BUN 17 mg/dL (4-19); BUN/Creat Ratio 19.9 RATIO (10-20); Calcium,Total 9.4 mg/dL (7.6-11.0); Carbon Dioxide 24.0 mmol/L (21.0-32.0); Chloride 105 mmol/L (98-108); Cholesterol 296 mg/dL (<=200); Estimated Creatinine Clearance 40.96 ml/min (50-250); Globulin 2.8 g/dL (2.2-4.2); Glucose 115 mg/dL (70-99); Low Density Lipoprotein Calc. 216 mg/dL; Potassium 4.1 mmol/L (3.3-5.1); Triglycerides 91 mg/dL; Very Low Density Lipoprotein 18 mg/dL (5-40); cholesterol:hdl ratio screen 4.54
[2025-01-02 07:00] VITALS: BP 176/78; PULSE 78
[2025-01-02 08:12] VITALS: BP 139/69; PULSE 73; RESP 16; TEMP 36.6; O2SAT 97
[2025-01-02] MEDS: APIXABAN 2.5 MG TABLET (WCH) PO (09:07)
--- NOTE | 2025-01-02 10:22 | DCINST_ITS ---
Discharge Instructions DC O2, CPAP, BIPAP needs Home O2 Discharge instructions: No Dressing / Incision Discharge Activity: Return to Normal Activity Dressing / Incision Call your doctor if you observe: Fever of 101 or Higher, Shortness of breath, Dizziness, Fainting spells, Swelling in the ankles, Chest pain and Increased palpitations (irregular heartbeat) Follow Up Care Test Results: Test results from this visit will be discussed in further detail at your follow- up appointment, if applicable. Discharge Plan Admission Admit Date/Time: 01/01/25 21:06 Attending Provider: Zay An Primary Care Provider: Amadou Live Consulting Providers: Octavio Lopez; Yomaira Caro Instructions Additional Instructions / Restrictions: In the process of working up your blood pressure issues I did order a renin and aldosterone test that can be followed up by your primary care doctor for evaluation and adjustments in treatment. Discharge Orders/Prescriptions Prescriptions: Continued famotidine [Pepcid AC] 10 mg tablet 10 mg PO ONCE PRN (Reason: gerd) desoximetasone 0.25 % cream 1 applic topical DAILY PRN (Reason: Fill as courtesy until pt obtains new Primary Dr. ) Qty: 15 1RF cholecalciferol (vitamin D3) 5,000 UNIT capsule 5,000 unit PO DAILY nitroglycerin 0.4 mg tablet, sublingual 0.4 mg sublingual Q5M PRN (Reason: chest pain) Qty: 30 0RF Rx Instructions: do not exceed 3 doses per episode isosorbide mononitrate 60 mg tablet extended release 24 hr 60 mg PO DAILY Patient Comments: pt knows that the patient is supposed to take the medication every day but states she only takes it for hypertensive emergencies. Eliquis 2.5 mg tablet 2.5 mg PO BID Qty: 180 3RF carvedilol 12.5 mg tablet 12.5 mg PO BID Qty: 180 3RF clopidogrel 75 mg tablet 75 mg PO QDAY Qty: 90 3RF valsartan 160 mg tablet 80 mg PO BID Qty: 180 3RF rosuvastatin [Crestor] 5 mg tablet 5 mg PO DAILY Qty: 1 0RF Referrals / Follow Up: Amadou Live MD [Primary Care Provider, Family Practice] - Within 1 Week Elsa Goldsmith MD [Med Staff - Consulting, Nephrology] - Within 1 Month Disposition Disposition (needs filled in before D/C Order can be placed): Home, Self Care
--- NOTE | 2025-01-02 12:03 | PHA.DC.MR.R ---
Pharmacy [place] Med Reconciliation Pharmacy Service has performed discharge medication reconciliation for this patient. The patient's discharge medication list was reviewed for discrepancies and discrepancies were resolved. Medications at Discharge Home Medications cholecalciferol (vitamin D3) 125 mcg (5,000 unit) capsule 5,000 unit PO DAILY SUPPLEMENT 12/12/17 famotidine 10 mg tablet (Pepcid AC) 10 mg PO ONCE PRN gerd 12/06/22 desoximetasone 0.25 % topical cream 1 applic topical DAILY PRN Fill as courtesy until pt obtains new Primary Dr. #15 grams 02/09/23 apixaban 2.5 mg tablet (Eliquis) 2.5 mg PO BID blood thinner #180 tabs 02/23/24 carvedilol 12.5 mg tablet 12.5 mg PO BID blood pressure #180 tabs 03/12/24 clopidogrel 75 mg tablet 75 mg PO QDAY anti platelet #90 tabs 03/12/24 valsartan 160 mg tablet 80 mg (1/2 x 160 mg) PO BID blood pressure #180 tabs 09/25/24 nitroglycerin 0.4 mg sublingual tablet 0.4 mg sublingual Q5M PRN chest pain #30 tabs 10/25/24 rosuvastatin 5 mg tablet (Crestor) 5 mg PO DAILY #1 TAB 11/14/24 isosorbide mononitrate 60 mg tablet,extended release 24 hr 60 mg PO DAILY heart 01/01/25
[2025-01-02 12:18] VITALS: BP 147/68; PULSE 71; RESP 18; TEMP 36.8; O2SAT 96
--- NOTE | 2025-01-02 12:22 | CASEMGMT ---
Patient has order for discharge. RN CM in to discuss discharge needs with patient. Patient denies needs or help at discharge. Patient had no further questions or concerns.
--- NOTE | 2025-01-02 13:17 | PCM.DC.SUM ---
Providers Date of Admission: 01/01/25 Primary Care Physician: Amadou Live MD Reason For Visit: HTN URGENCY Diagnosis Discharge Diagnosis (1) Hypertensive urgency: Status: Acute Code(s): I16.0 - Hypertensive urgency Medications at Discharge Home Medications cholecalciferol (vitamin D3) 125 mcg (5,000 unit) capsule 5,000 unit PO DAILY SUPPLEMENT 12/12/17 famotidine 10 mg tablet (Pepcid AC) 10 mg PO ONCE PRN gerd 12/06/22 desoximetasone 0.25 % topical cream 1 applic topical DAILY PRN Fill as courtesy until pt obtains new Primary Dr. #15 grams 02/09/23 apixaban 2.5 mg tablet (Eliquis) 2.5 mg PO BID blood thinner #180 tabs 02/23/24 carvedilol 12.5 mg tablet 12.5 mg PO BID blood pressure #180 tabs 03/12/24 clopidogrel 75 mg tablet 75 mg PO QDAY anti platelet #90 tabs 03/12/24 valsartan 160 mg tablet 80 mg (1/2 x 160 mg) PO BID blood pressure #180 tabs 09/25/24 nitroglycerin 0.4 mg sublingual tablet 0.4 mg sublingual Q5M PRN chest pain #30 tabs 10/25/24 rosuvastatin 5 mg tablet (Crestor) 5 mg PO DAILY #1 TAB 11/14/24 isosorbide mononitrate 60 mg tablet,extended release 24 hr 60 mg PO DAILY heart 01/01/25 Hospital Course Operations None Procedures None Summary of Care Provided Minutes Spent on Discharge: 40 Hospital Course: Per HPI: The patient is an 89 y/o F w/ PMHx: Chronic normocytic anemia, Valvular heart disease s/p TAVR 02/2024, Hx DVT, HTN, HLD, CAD s/p PCI 2001, 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 per GFR trending who presents to the [facility] ED on 01/01/2025 with history of persistent elevated blood pressures throughout the day however she does report that several months prior her blood pressures had been low in the morning therefore her blood pressure medications had been altered and decreased with dizziness intermittently and occasional chest tightness at home however this has been ongoing and is not isolated on day of presentation with no headache or specific chest pain but given ongoing elevation prompted patient to self administer 3 nitroglycerin lowering her blood pressure to 180 however it again returned to 200 prompting daughter to bring her in for evaluation. From discussion with patient it appears she may not be taking her isosorbide and only taking it as needed. Workup in the ED included T98.6, heart rate 89, BP initially 224/117, respiratory rate 16, 99% on room air with BP decreasing transiently to 167/83, most recent repeat vitals heart rate with 83, BP 164/92, respiratory rate 18, 100% on room air, 98% temperature, CBC with WBC 4.7, hemoglobin 12.2, MCV 99.2, platelet 2 4 without marked shift, BMP with BUN/creatinine 19/0.96, GFR 56, glucose 128, troponin 12, urinalysis unremarkable, chest x-ray with no acute cardiopulmonary findings, CT brain with no acute intracranial findings, EKG with sinus rhythm with PVCs with no acute evidence of ischemia with repeat EKG performed again with similar findings with no acute concerns in the ED patient administered 20 mg IV hydralazine x 2 doses most recently 2035. Hospital Course: 1. Hypertensive urgency with chest tightness?89-year-old female presented to the hospital with hypertensive urgency and chest tightness and pressure. Troponins were unremarkable and EKG was nonischemic. She has been having significant issues controlling her blood pressure as it has been fairly labile at home. She is on multiple medications and she says she takes her blood pressure frequently throughout the day. I do think that a component of this is likely anxiety induced given how frequently she checks her blood pressure. She has been worked up as an outpatient with echocardiograms as well as a renal ultrasound to evaluate her arteries which were normal. She is on multiple medications, the valsartan can affect the aldosterone renin ratio however I did order this just screen for primary aldosteronism which her primary care doctor can follow-up with as an outpatient. Of note she did have a urine analysis here on admission with no protein in her urine. She did have an echocardiogram on 07/18/2024 with an EF of 60% and a PASP of 40 mmHg. Given the difficulty in controlling her blood pressure at home I do recommend that she follow-up with nephrology as an outpatient and I did provide her with a referral. I discussed her current care with her daughter and noted that her blood pressure this morning was well-controlled, family has noted that she progressively gets higher throughout the day. I discussed the plan for discharge today with the patient and the daughter who both expressed understanding of the risks and benefits of going home and would like to go home today. I did ask her to stop checking her blood pressure at home unless she was symptomatic with either headaches, blurry vision, shortness of breath, chest tightness, lightheadedness and dizziness. No changes to her blood pressure medications were made on discharge. Physical Exam Narrative General: Alert, Oriented x3, Cooperative, No apparent distress HEENT: Atraumatic, PERRLA, EOMI, Normocephalic Oral: Moist Mucosa Neck: Supple, No JVD Lungs: Diminished, Normal air movement, No rhonchi, No wheeze, No rales Cardiovascular: Regular rate, Regular Rhythm, Normal S1, Normal S2, No murmurs Abdomen: Soft, Non Tender, Non-Distended, No Hepato-splenomegaly Extremities: No edema, Capillary Refill Less than 3 Seconds Skin: No rashes, No breakdown Musculoskeletal: No Tenderness to Palpation of Joints or Extremities Neurological: No focal neurological deficits, moves all extremities Psych/Mental Status: Normal Affect, Appropriate Weight / BMI Weight Weight: 145 lb 8.081 oz Body Mass Index (BMI) 26.6 ABG / Lab / Microbiology Data 01/02/25 05:12 01/02/25 05:12 Laboratory: Laboratory Results - last 24 hr 01/01/25 18:44: WBC 4.7, RBC 3.68 L, Hgb 12.2, Hct 36.5 L, MCV 99.2 H, MCH 33.2 H, MCHC 33.4, RDW Std Deviation 52.3 H, RDW Coeff of Heladio 14.4, Plt Count 204, MPV 11.7, Immature Gran % (Auto) 0.400, Neut % (Auto) 52.7, Lymph % (Auto) 34.7, [place] % (Auto) 9.6, Eos % (Auto) 1.7, Baso % (Auto) 0.9, Absolute Neuts (auto) 2.5, Absolute Lymphs (auto) 1.62, Nucleated RBC % 0, Sodium 136, Potassium 4.0, Chloride 102, Carbon Dioxide 23.7, Anion Gap 11, BUN 19, Creatinine 0.96, Estim Creat Clear Calc 36.60 L, Est GFR (MDRD) Non-Af 56 L, BUN/Creatinine Ratio 19.4, Glucose 128 H, Calcium 9.3, Troponin T High Sens 12 01/01/25 19:00: Urine Color Straw, Urine Clarity Clear, Urine pH 7.0, Ur Specific [place] 1.005, Urine Protein Negative, Urine Glucose (UA) Normal, Urine Ketones Negative, Urine Occult Blood Negative, Urine Nitrite Negative, Urine Bilirubin Negative, Urine Urobilinogen Normal, Ur Leukocyte Esterase Negative, Urine RBC 0 SEEN, Urine WBC 0 SEEN, Ur Squamous Epith Cells 0 SEEN, Urine Bacteria 0 SEEN, Urine Mucus 0 SEEN 01/01/25 20:46: Magnesium 2.1, Troponin T Hi Sens 2 Hr 12 01/01/25 22:53: Troponin T Hi Sens 4Hr 13 01/02/25 00:42: POC Glucose 102 01/02/25 05:12: WBC 5.1, RBC 3.62 L, Hgb 11.9 L, Hct 35.5 L, MCV 98.1, MCH 32.9 H, MCHC 33.5, RDW Std Deviation 53.2 H, RDW Coeff of Heladio 14.6, Plt Count 209, MPV 11.9, Immature Gran % (Auto) 0.200, Neut % (Auto) 71.5 H, Lymph % (Auto) 20.1, [place] % (Auto) 7.4, Eos % (Auto) 0.2, Baso % (Auto) 0.6, Absolute Neuts (auto) 3.7, Absolute Lymphs (auto) 1.03, Nucleated RBC % 0, Sodium 138, Potassium 4.1, Chloride 105, Carbon Dioxide 24.0, Anion Gap 9, BUN 17, Creatinine 0.83, Estim Creat Clear Calc 40.96 L, Est GFR (MDRD) Non-Af 67, BUN/Creatinine Ratio 19.9, Glucose 115 H, Calcium 9.4, Total Bilirubin 0.49, AST 31, ALT 20, Alkaline Phosphatase 51, Total Protein 6.5, Albumin 3.7, Globulin 2.8, Albumin/Globulin Ratio 1.3, Triglycerides 91, Cholesterol 296 H, LDL Cholesterol, Calc 216, VLDL Cholesterol 18, HDL Cholesterol 65, Cholesterol/HDL Ratio 4.54 Radiography Diagnostic Testing: Radiology Impression Chest X-Ray 01/01/25 18:53 IMPRESSION: No Acute Findings. Reading Location: [facility] Brain CT 01/01/25 19:20 IMPRESSION: No acute intracranial abnormality. Reading Location: [facility] D/C Instructions Call your doctor if you observe: Fever of 101 or Higher, Shortness of breath, Dizziness, Fainting spells, Swelling in the ankles, Chest pain and Increased palpitations (irregular heartbeat) DC O2, CPAP, BIPAP Needs Home O2 Discharge instructions: No Meaningful Use Info Meaningful Use Meaningful Use Diagnoses (Choose all that apply): None applicable Discharge Plan Admission Admit Date/Time: 01/01/25 21:06 Attending Provider: Zay An Primary Care Provider: Amadou Live Consulting Providers: Octavio Lopez; Yomaira Caro Instructions Additional Instructions / Restrictions: In the process of working up your blood pressure issues I did order a renin and aldosterone test that can be followed up by your primary care doctor for evaluation and adjustments in treatment. Discharge Orders/Prescriptions Prescriptions: Continued famotidine [Pepcid AC] 10 mg tablet 10 mg PO ONCE PRN (Reason: gerd) desoximetasone 0.25 % cream 1 applic topical DAILY PRN (Reason: Fill as courtesy until pt obtains new Primary DrNelli ) Qty: 15 1RF cholecalciferol (vitamin D3) 5,000 UNIT capsule 5,000 unit PO DAILY nitroglycerin 0.4 mg tablet, sublingual 0.4 mg sublingual Q5M PRN (Reason: chest pain) Qty: 30 0RF Rx Instructions: do not exceed 3 doses per episode isosorbide mononitrate 60 mg tablet extended release 24 hr 60 mg PO DAILY Patient Comments: pt knows that the patient is supposed to take the medication every day but states she only takes it for hypertensive emergencies. Eliquis 2.5 mg tablet 2.5 mg PO BID Qty: 180 3RF carvedilol 12.5 mg tablet 12.5 mg PO BID Qty: 180 3RF clopidogrel 75 mg tablet 75 mg PO QDAY Qty: 90 3RF valsartan 160 mg tablet 80 mg PO BID Qty: 180 3RF rosuvastatin [Crestor] 5 mg tablet 5 mg PO DAILY Qty: 1 0RF Referrals / Follow Up: Amadou Live MD [Primary Care Provider, Family Practice] - Within 1 Week Elsa Goldsmith MD [Med Staff - Consulting, Nephrology] - Within 1 Month Disposition Disposition (needs filled in before D/C Order can be placed): Home, Self Care Charges/Coding Visit Charges Inpatient E&M: 60936 Disch Hosp >30min
--- NOTE | 2025-01-02 13:38 | CHAPLAIN ---
Type of Pastoral Visit ___ Initial Visit ___ Follow-up Visit ___ On-call Visit ___ General Patient Visit ___ Spiritual Assessment ___ Family Conference ___ Bereavement ___ Rapid Response ___ Code Blue ___ Other (describe below) Pastoral Care Referral From ___ Patient ___ Family ___ Nurse ___ Physician ___ Fence Maker ___ Flooring Mechanic ___ Other (describe below) Sacrament/Intervention ___ Active listening ___ Anointing ___ Christian ___ Bereavement ___ Communion ___ Janett exploration ___ ___ Life review ___ Prayer ___ Reconciliation ___ Sacrament of Sick ___ Supportive presence ___ Wedding ___ Other (describe below) Pastoral Comments patient is getting ready to be discharged; daughter is with her; both report that things are better and that there are no new concerns at this time
[2025-01-10 00:07] LABS: ALDOSTERONE/RENIN RATIO >8.4 (0.0-30.0)
== END 2025-01-02 11:09 | disposition home or self-care (01) ==
LOC: ED 21:12 → PCU 22:00
PROVIDERS: Admitting Provider Family Medicine; Emergency Provider Emergency Medicine; PCP Family Medicine; Visit Provider Family Medicine
DX: I16.0 Hypertensive urgency (principal); I25.10 Atherosclerotic heart disease of native coronary artery without angina pectoris; K21.9 Gastro-esophageal reflux disease without esophagitis; E78.5 Hyperlipidemia, unspecified; I10 Essential (primary) hypertension; Z79.01 Long term (current) use of anticoagulants; Z79.899 Other long term (current) drug therapy; Z86.718 Personal history of other venous thrombosis and embolism; Z79.02 Long term (current) use of antithrombotics/antiplatelets; Z95.2 Presence of prosthetic heart valve; Z95.5 Presence of coronary angioplasty implant and graft
CPT/HCPCS: 36415; 70450; 71045; 80048; 80053; 80061; 81001; 82088; 82962; 83735; 84244; 84484; 85025; 93005; 96374; 96376; 97802; 99221; 99285; A4216; G0378

== ENCOUNTER → 2025-01-30 | Outpatient (CLI) | payer MEDICARE, OTHER, SELFPAY ==
--- NOTE | 2025-01-30 13:25 | ECHOD_ITS ---
Reason For Study Reason For Study: TAVR Procedure This was a 2D Doppler, Color Flow transthoracic echocardiogram. The study was technically difficult. Exam performed in department. Left Ventricle Normal LV size. The left ventricular ejection fraction is 65 %. Stage 1 diastolic dysfunction. No regional wall motion abnormalities noted. Right Ventricle Normal RV size. Normal systolic function. Atria Normal left atrium. Normal right atrium. Mitral Valve There is moderate mitral annular calcification. Mild (1+) eccentric mitral valve insufficiency. Tricuspid Valve Normal tricuspid valve. Mild (1+) tricuspid valve insufficiency. Pulmonary artery systolic pressure is 23 mmHg. Aortic Valve Peak aortic valve gradient 20 mmHg. Mean aortic valve gradient 10 mmHg. Bioprosthetic aortic valve. Pulmonic Valve Normal pulmonic valve. Great Vessels Moderately calcified aortic root. The pulmonary artery is normal size. Inferior vena cava collapse with respiration. Pericardium/Pleural No pericardial effusion. MMode/2D Measurements & Calculations LVIDd: 4.1 cm IVSd: 0.85 cm LVOT diam: 1.9 cm LVIDs: 2.8 cm LVPWd: 1.0 cm LVOT area: 3.0 cm2 RVDd: 3.8 cm FS: 32.7 % LAV(MOD-bp): 72.3 ml LVAd ap4: 23.9 cm2 LVAd ap2: 20.8 cm2 LAV(MOD-bp) Indexed: 42.8 ml/m2 LVLd ap4: 7.0 cm LVLd ap2: 7.1 cm LAV(MOD-sp2): 83.3 ml EDV(MOD-sp4): 66.3 ml EDV(MOD-sp2): 49.3 ml LAV(MOD-sp4): 59.1 ml EDV(sp4-el): 69.4 ml EDV(sp2-el): 51.6 ml LVAs ap4: 12.3 cm2 LVAs ap2: 10.7 cm2 LVLs ap4: 5.6 cm LVLs ap2: 5.7 cm ESV(MOD-sp4): 23.0 ml ESV(MOD-sp2): 16.9 ml ESV(sp4-el): 22.8 ml ESV(sp2-el): 17.0 ml EF(MOD-sp4): 65.4 % EF(MOD-sp2): 65.8 % EF(sp4-el): 67.2 % SV(MOD-sp4): 43.3 ml SV(MOD-sp2): 32.4 ml SV(sp4-el): 46.6 ml SI(MOD-sp4): 25.6 ml/m2 SI(MOD-sp2): 19.2 ml/m2 LA A4 area: 22.1 cm2 LA dimension(2D): 5.6 cm RA A4 area: 19.7 cm2 TAPSE: 1.9 cm Time Measurements MV dec time: 0.37 sec Doppler Measurements & Calculations MV E max isauro: 91.9 cm/sec Lat Peak E' Isauro: 4.5 cm/sec Med Peak E' Isauro: 6.1 cm/sec MV A max isauro: 128.7 cm/sec E/E' lat: 20.3 E/E' med: 15.0 MV E/A: 0.71 Ao V2 max: 224.4 cm/sec LV V1 max: 149.0 cm/sec MV dec slope: 248.9 cm/sec2 Ao max P.2 mmHg LV V1 max P.9 mmHg Ao V2 mean: 143.8 cm/sec LV V1 mean P.4 mmHg Ao mean P.7 mmHg LV V1 mean: 98.4 cm/sec Ao V2 VTI: 48.7 cm LV V1 VTI: 33.0 cm AV (velocity ratio): 0.68 GARRET(I,D): 2.0 cm2 GARRET(V,D): 2.0 cm2 SV(LVOT): 98.0 ml PA V2 max: 66.3 cm/sec PI end-d isauro: 120.7 cm/sec TR max isauro: 245.6 cm/sec TR max P.1 mmHg ECHO/Echo Complete Interpretation Summary Normal LV size. The left ventricular ejection fraction is 65 %. Stage 1 diastolic dysfunction. Pulmonary artery systolic pressure is 23 mmHg. Bioprosthetic aortic valve. Mean aortic valve gradient 10 mmHg. Ordering Physician: TALIA LEE Referring Physician: Amadou Live Performed By: Nena Villalobos RDCS
[2025-01-30 15:40] LABS: Anion Gap 11 (5-15); BUN 20 mg/dL (4-19); BUN/Creat Ratio 21.2 RATIO (10-20); Calcium,Total 9.1 mg/dL (7.6-11.0); Carbon Dioxide 24.4 mmol/L (21.0-32.0); Chloride 103 mmol/L (98-108); Glucose 133 mg/dL (70-99); Potassium 4.5 mmol/L (3.3-5.1)
== END | disposition home or self-care (01) ==
LOC: CVS 13:12
PROVIDERS: PCP Family Medicine
DX: N17.9 Acute kidney failure, unspecified (principal); Z95.3 Presence of xenogenic heart valve
CPT/HCPCS: 36415; 80048; 93306